=== PATIENT | female | born 1940 | race African-American/Black ===

== ENCOUNTER 2016-10-22 15:56 | Emergency (ER) | payer OTHER, MEDICARE ==
[2016-10-22 16:04] VITALS: BMI 40.2
--- NOTE | 2016-10-22 17:40 | PDOC ---
History of Present Illness - General History Source: Patient Exam Limitations: No Limitations - History of Present Illness Initial Comments: 10/22/16 17:49 The patient is a 76 year old female, with a significant past medical history of CAD, a-fib, arrhythmia, DM (on insulin), CHF, HTN, HLD, ESRD on dialysis (Mon, Weds, and Fri) who presents to the emergency department with lower back pain for 4 days. The patient reports having lower back/buttock pain that radiates down her LLE into her foot. She notes having numbness and tingling in her LLE with her back pain. She denies any relief from NSAIDs, ice, and heating pads. She reports having trouble walking secondary to pain. She denies recent fevers, chills, headache or dizziness. She denies recent nausea, vomit, diarrhea or constipation. She denies recent dysuria, frequency, urgency or hematuria. She denies recent chest pain or shortness of breath. She reports having previous negative x-rays and Doppler test. Allergies: Penicillins Past surgical history: Appendectomy, cholecystectomy, and abdominal hernia repair Social history: Nonsmoker. Denies EtOH use and recreational drug use. Primary Care Physician: Dr. Henriquez <Gregg Romero - Last Filed: 10/22/16 17:49> <Elizabeth Grimaldo - Last Filed: 10/24/16 01:39> - General Chief Complaint: Pain Stated Complaint: LEFT LEG PAIN Time Seen by Provider: 10/22/16 17:39 Past History <Gregg Romero - Last Filed: 10/22/16 17:49> - Past Medical History Anemia: Yes Asthma: No Cancer: No Cardiac Disorders: Yes (ARRHYTHMIA, H/O A FIB,CAD) CVA: No COPD: No CHF: Yes Dementia: No Diabetes: Yes (1993) Dialysis: Yes (-W-) GI Disorders: No Disorders: Yes (RENAL DIALYSIS STARTED 2003) HTN: Yes (NO MEDS (GOES TOO LOW ON DIALYSIS)) Hypercholesterolemia: Yes Liver Disease: No Seizures: No Thyroid Disease: No - Surgical History Abdominal Surgery: Yes (UMBILICAL HERNIA REPAIR) Appendectomy: Yes (MANY YRS AGO) Cardiac Surgery: No Cholecystectomy: Yes (MANY YRS AGO) Lung Surgery: No Neurologic Surgery: No Orthopedic Surgery: No - Psycho/Social/Smoking Cessation Hx Anxiety: No Suicidal Ideation: No Smoking History: Never smoked Have you smoked in the past 12 months: No Hx Alcohol Use: No Drug/Substance Use Hx: No Substance Use Type: None Hx Substance Use Treatment: No <Elizabeth Grimaldo - Last Filed: 10/24/16 01:39> - Past Medical History Allergies/Adverse Reactions: Allergies Allergy/AdvReac Type Severity Reaction Status Date / Time Penicillins Allergy Swelling Verified 10/22/16 16:04 Home Medications: Ambulatory Orders Nitroglycerin Patch [Nitro-Dur Patch -] 0.2 mg TD PRN PRN 12/07/13 Warfarin Sodium [Coumadin] 10 mg PO HS 12/07/13 Psyllium [Metamucil (Sugar-Free) -] 5.85 gm PO Q2D packet 08/08/15 Oxycodone HCl [Roxicodone -] 10 mg PO Q6H PRN #10 tablet MDD 4 08/10/15 Pregabalin [Lyrica -] 50 mg PO BID capsule 08/10/15 Aspirin [ASA -] 81 mg PO DAILY #30 tab.chew 09/07/15 Atorvastatin Ca [Lipitor] 40 mg PO HS #120 tablet 09/07/15 Digoxin [Lanoxin -] 0.125 mg PO DAILY #30 tablet 09/07/15 Insulin (Levemir) [Levemir Vial] 10 units SQ BIDI #100 ml 09/07/15 Lactulose [Cephulac -] 10 gm PO Q2D #30 ml 09/07/15 Metoprolol Succinate [Toprol XL -] 25 mg PO DAILY #30 tab.sr.24h 09/07/15 Sennosides [Senna -] 2 tab PO HS PRN #120 tablet 09/07/15 Sevelamer Carbonate [Renvela -] 4,000 mg PO TID #100 tab 09/07/15 Collagenase Clostridium Hist. [Santyl] 1 applic TP DAILY #90 applic 11/22/15 Becaplermin [Regranex] 15 gm TP DAILY #15 gel..gram. 01/07/16 Ondansetron [Zofran Odt -] 4 mg SL BID PRN #10 od.tablet 10/23/16 Oxycodone HCl 10 mg PO QID PRN #10 tablet MDD 4 10/23/16 Oxycodone HCl [Roxicodone -] 10 mg PO Q6H PRN #10 tablet MDD 4 10/23/16 Review of Systems - Review of Systems Able to Perform ROS?: Yes Comments:: 10/22/16 17:49 CONSTITUTIONAL: Absent: fever, chills, diaphoresis, generalized weakness, malaise, loss of appetite HEENT: Absent: rhinorrhea, nasal congestion, throat pain, throat swelling, difficulty swallowing, mouth swelling, ear pain, eye pain, visual Changes CARDIOVASCULAR: Absent: chest pain, syncope, palpitations, irregular heart rate, lightheadedness , peripheral edema RESPIRATORY: Absent: cough, shortness of breath, dyspnea with exertion, orthopnea, wheezing, stridor, hemoptysis GASTROINTESTINAL: Absent: abdominal pain, abdominal distension, nausea, vomiting, diarrhea, constipation, melena, hematochezia GENITOURINARY: Absent: dysuria, frequency, urgency, hesitancy, hematuria, flank pain, genital pain MUSCULOSKELETAL: +back pain and LLE pain. Absent: myalgia, arthralgia, joint swelling SKIN: Absent: rash, itching, pallor HEMATOLOGIC/IMMUNOLOGIC: Absent: easy bleeding, easy bruising, lymphadenopathy, frequent infections ENDOCRINE: Absent: unexplained weight gain, unexplained weight loss, heat intolerance, cold intolerance NEUROLOGIC: Absent: headache, focal weakness or paresthesias, dizziness, unsteady gait, seizure, mental status changes, bladder or bowel incontinence PSYCHIATRIC: Absent: anxiety, depression, suicidal or homicidal ideation, hallucinations. <Gregg Romero - Last Filed: 10/22/16 17:49> *Physical Exam - Vital Signs Last Vital Signs Temp Pulse Resp BP Pulse Ox 98.0 F 72 20 115/52 97 10/22/16 16:01 10/22/16 16:01 10/22/16 16:01 10/22/16 16:01 10/22/16 16:01 - Physical Exam Comments: 10/22/16 17:50 GENERAL: Well developed, well nourished. Awake and alert. No acute distress. HEENT: Normocephalic, atraumatic. PERRLA, EOMI. No conjunctival pallor. Sclera are non- icteric. Moist mucous membranes. Oropharynx is clear. NECK: Supple. Full ROM. No JVD. Carotid pulses 2+ and symmetric, without bruits. No thyromegaly. No lymphadenopathy. CARDIOVASCULAR: Iregular rate and rhythm. No murmurs, rubs, or gallops. Distal pulses are 2+ and symmetric. PULMONARY: No evidence of respiratory distress. Lungs clear to auscultation bilaterally. No wheezing, rales or rhonchi. ABDOMINAL: Soft. Non-tender. Non-distended. No rebound or guarding. No organomegaly. Normoactive bowel sounds. MUSCULOSKELETAL Normal range of motion at all joints. No bony deformities or tenderness. No CVA tenderness. EXTREMITIES: +1 pitting edema. No cyanosis. No clubbing. SKIN: Warm and dry. Normal capillary refill. No rashes. No jaundice. NEUROLOGICAL: Alert, awake, appropriate. Cranial nerves 2-12 intact. No deficits to light touch and temperature in face, upper extremities and lower extremities. No motor deficits in the in face, upper extremities and lower extremities. Normoreflexic in the upper and lower extremities. Normal speech. Toes are down- going bilaterally. Gait is normal without ataxia. PSYCHIATRIC: Cooperative. Good eye contact. Appropriate mood and affect. <Gregg Romero - Last Filed: 10/22/16 17:49> - Vital Signs Last Vital Signs Temp Pulse Resp BP Pulse Ox 98.0 F 72 20 115/52 97 10/22/16 16:01 10/22/16 16:01 10/22/16 16:01 10/22/16 16:01 10/22/16 16:01 <Elizabeth Grimaldo - Last Filed: 10/24/16 01:39> ED Treatment Course - LABORATORY CBC & Chemistry Diagram: 10/22/16 19:50 10/22/16 21:00 <Elizabeth Grimaldo - Last Filed: 10/24/16 01:39> Medical Decision Making - Medical Decision Making 10/23/16 00:21 76-year-old female with past medical history of end-stage renal disease, A. fib on Coumadin, presents with 4 days of left leg pain. The pain radiates down from her buttocks She does not have any new fecal or urinary incontinence Dr. Alisha Booker is her residence director. She has a history of low potassium and actually has been receiving potassium when she gets her dialysis Her dialysis is on Sunday, Sunday and Sunday Tonight, her potassium is 2.9 and I spoke with Dr. aGrcia. He said was okay to give her 20 mEq of liquid potassium, chloride Patient's CBC is unremarkable. Chemistries were reviewed and her creatinine was 11. Glucose is only 65 and she was given some apple jiuce to drink -pt received pain meds plan d/c home and go to dialysis in am 10/24/16 01:38 <Elizabeth Grimaldo - Last Filed: 10/24/16 01:39> *DC/Admit/Observation/Transfer - Attestations Scribe Attestion: 10/22/16 17:50 Documentation prepared by Gregg Romero, acting as medical office receptionist for Elizabeth Grimaldo MD. <Gregg Romero - Last Filed: 10/22/16 17:49> <Elizabeth Grimaldo - Last Filed: 10/24/16 01:39> Diagnosis at time of Disposition: Sciatica of left side, Hypokalemia - Discharge Dispostion Disposition: HOME Condition at time of disposition: Stable - Prescriptions Prescriptions: Oxycodone HCl 10 mg PO QID PRN #10 tablet MDD 4 PRN Reason: Severe Pain Oxycodone HCl [Roxicodone -] 10 mg PO Q6H PRN #10 tablet MDD 4 PRN Reason: Severe Pain Ondansetron [Zofran Odt -] 4 mg SL BID PRN #10 od.tablet PRN Reason: Nausea And/Or Vomiting - Referrals Referrals: Kishore David MD [Primary Care Provider] - Alisha Booker MD [Staff Physician] - - Patient Instructions Printed Discharge Instructions: DI for Back Pain With Sciatica Additional Instructions: please go to dialysis tomorrow group product manager your medication at [facility] pharmacy please see your doctor this week
[2016-10-22] MEDS ORDERED: OXYCODONE/APAP 5/325MG COMBO TABLET PO ONE (18:07)
[2016-10-22] MEDS ORDERED: IBUPROFEN 400 MG TABLET (FP) PO ONE ×2 (18:08→18:22)
[2016-10-22] MEDS ORDERED: oxyCODONE HCL 5 MG TABLET PO ONE (18:19)
[2016-10-22] MEDS ORDERED: oxyCODONE HCL 5 MG TABLET ONE (18:22)
[2016-10-22] MEDS ORDERED: morphine CARPU-JECT 2 MG/1 ML DISP.SYRIN IVPUSH ONE ×2 (19:35→20:38)
[2016-10-22] MEDS ORDERED: ONDANSETRON 4 MG/2 ML VIAL IVPUSH ONE (19:35)
[2016-10-22] MEDS ORDERED: ONDANSETRON 4 MG/2 ML VIAL ONE ×2 (19:40→23:34)
[2016-10-22] MEDS ORDERED: morphine CARPU-JECT 2 MG/1 ML DISP.SYRIN ONE ×2 (19:40→20:39)
[2016-10-22 20:07] LABS: BASOPHIL 0.6 % (0-2.0); EOSINOPHIL 0.1 % (0-4.5); MCH 28.3 pg (25.7-33.7); MCHC 31.5 g/dl (32.0-36.0); MEAN CELL VOLUME 89.7 fl (80-96); MEAN PLT VOLUME 8.9 fl (7.5-11.1); NEUTROPHILS 60.1 % (42.8-82.8); PLATELET COUNT 217 K/MM3 (134-434); WHITE BLOOD COUNT 9.3 K/mm3 (4.0-10.0)
[2016-10-22] MEDS ORDERED: HYDROmorphone HCL CARPU-JECT 1 MG/1 ML DISP.SYRIN IVPUSH ONE (20:37)
[2016-10-22 21:27] LABS: INR 2.79 (0.82-1.09); PROTHROMBIN TIME (PATIENT) 31.3 SEC (9.98-11.88)
[2016-10-22 21:36] LABS: ALBUMIN 3.6 g/dl (3.4-5.0); BILIRUBIN,TOTAL 0.3 mg/dL (0.2-1.0); CALCIUM 8.4 mg/dL (8.5-10.1); TOT PROT 7.3 g/dl (6.4-8.2)
[2016-10-22] MEDS ORDERED: HYDROmorphone HCL CARPU-JECT 1 MG/1 ML DISP.SYRIN ONE (21:40)
[2016-10-22 21:42] LABS: COCKROFT - GAULT 8.0325
[2016-10-22 21:45] LABS: CREATININE 11.3 mg/dL (0.55-1.02)
[2016-10-22] MEDS ORDERED: POTASSIUM CHLORIDE ORAL LIQUID 20 MEQ/15 ML PO ONE (22:14)
[2016-10-22] MEDS ORDERED: POTASSIUM CHLORIDE ORAL LIQUID 20 MEQ/15 ML ONE (22:43)
[2016-10-23] MEDS ORDERED: ONDANSETRON 4 MG/2 ML VIAL IVPUSH ONE ×2 (00:19→00:41)
[2016-10-23] MEDS ORDERED: ONDANSETRON 4 MG/2 ML VIAL ONE (00:47)
[2016-10-23 05:19] VITALS: BP 121/68; PULSE 66; TEMP 98.3
== END 2016-10-23 05:05 | disposition home or self-care (01) ==
LOC: JER 15:56 → JERFT 15:56 → JER 10-23 05:05
PROC: 3E033NZ Introduction of Analgesics, Hypnotics, Sedatives into Peripheral Vein, Percutaneous Approach (ICD-10-PCS; principal; 2016-10-22)
PROC: 3E033GC Introduction of Other Therapeutic Substance into Peripheral Vein, Percutaneous Approach (ICD-10-PCS; 2016-10-22)
PROC: 3E033GC Introduction of Other Therapeutic Substance into Peripheral Vein, Percutaneous Approach (ICD-10-PCS; 2016-10-22)
PROC: 3E033GC Introduction of Other Therapeutic Substance into Peripheral Vein, Percutaneous Approach (ICD-10-PCS; 2016-10-22)
PROC: 3E033NZ Introduction of Analgesics, Hypnotics, Sedatives into Peripheral Vein, Percutaneous Approach (ICD-10-PCS; 2016-10-22)
PROC: 3E033NZ Introduction of Analgesics, Hypnotics, Sedatives into Peripheral Vein, Percutaneous Approach (ICD-10-PCS; 2016-10-22)
DX: M54.42 Lumbago with sciatica, left side (principal); E87.6 Hypokalemia; I48.91 Unspecified atrial fibrillation; Z79.01 Long term (current) use of anticoagulants; I25.10 Atherosclerotic heart disease of native coronary artery without angina pectoris; I13.2 Hypertensive heart and chronic kidney disease with heart failure and with stage 5 chronic kidney disease, or end stage renal disease; N18.6 End stage renal disease; I50.9 Heart failure, unspecified; Z99.2 Dependence on renal dialysis; E78.00 Pure hypercholesterolemia, unspecified; E11.9 Type 2 diabetes mellitus without complications; Z79.4 Long term (current) use of insulin
CPT/HCPCS: 36415; 80053; 85025; 85610; 85730; 96374; 96375; 99283-25

== ENCOUNTER 2016-10-27 06:01 | Inpatient (IN) | payer OTHER, MEDICARE ==
[2016-10-27] MEDS ORDERED: traMADol HCL 50 MG TABLET PO ONE (07:30)
[2016-10-27] MEDS ORDERED: traMADol HCL 50 MG TABLET ONE (07:43)
--- NOTE | 2016-10-27 08:00 | PDOC ---
History of Present Illness - General Chief Complaint: Pain, Acute Stated Complaint: LEG PAIN Time Seen by Provider: 10/27/16 07:06 History Source: Patient - History of Present Illness Occurred: reports: last week Pain Location: reports: lower extremity Past History - Past Medical History Allergies/Adverse Reactions: Allergies Allergy/AdvReac Type Severity Reaction Status Date / Time Penicillins Allergy Swelling Verified 10/27/16 06:24 Home Medications: Ambulatory Orders Nitroglycerin Patch [Nitro-Dur Patch -] 0.2 mg TD PRN PRN 12/07/13 Warfarin Sodium [Coumadin] 10 mg PO HS 12/07/13 Psyllium [Metamucil (Sugar-Free) -] 5.85 gm PO Q2D packet 08/08/15 Oxycodone HCl [Roxicodone -] 10 mg PO Q6H PRN #10 tablet MDD 4 08/10/15 Pregabalin [Lyrica -] 50 mg PO BID capsule 08/10/15 Aspirin [ASA -] 81 mg PO DAILY #30 tab.chew 09/07/15 Atorvastatin Ca [Lipitor] 40 mg PO HS #120 tablet 09/07/15 Digoxin [Lanoxin -] 0.125 mg PO DAILY #30 tablet 09/07/15 Insulin (Levemir) [Levemir Vial] 10 units SQ BIDI #100 ml 09/07/15 Lactulose [Cephulac -] 10 gm PO Q2D #30 ml 09/07/15 Metoprolol Succinate [Toprol XL -] 25 mg PO DAILY #30 tab.sr.24h 09/07/15 Sennosides [Senna -] 2 tab PO HS PRN #120 tablet 09/07/15 Sevelamer Carbonate [Renvela -] 4,000 mg PO TID #100 tab 09/07/15 Collagenase Clostridium Hist. [Santyl] 1 applic TP DAILY #90 applic 11/22/15 Becaplermin [Regranex] 15 gm TP DAILY #15 gel..gram. 01/07/16 Ondansetron [Zofran Odt -] 4 mg SL BID PRN #10 od.tablet 10/23/16 Oxycodone HCl 10 mg PO QID PRN #10 tablet MDD 4 10/23/16 Oxycodone HCl [Roxicodone -] 10 mg PO Q6H PRN #10 tablet MDD 4 10/23/16 Anemia: Yes Asthma: No Cancer: No Cardiac Disorders: Yes (ARRHYTHMIA, H/O A FIB,CAD) CVA: No COPD: No CHF: Yes Dementia: No Diabetes: Yes (1993) Dialysis: Yes (-W-) GI Disorders: No Disorders: Yes (RENAL DIALYSIS STARTED 2003) HTN: Yes (NO MEDS (GOES TOO LOW ON DIALYSIS)) Hypercholesterolemia: Yes Liver Disease: No Seizures: No Thyroid Disease: No - Surgical History Abdominal Surgery: Yes (UMBILICAL HERNIA REPAIR) Appendectomy: Yes (MANY YRS AGO) Cardiac Surgery: No Cholecystectomy: Yes (MANY YRS AGO) Lung Surgery: No Neurologic Surgery: No Orthopedic Surgery: No - Reproductive History Is Patient Now?: No - Immunization History Immunization Up to Date: Yes - Psycho/Social/Smoking Cessation Hx Anxiety: No Suicidal Ideation: No Smoking History: Never smoked Have you smoked in the past 12 months: No Hx Alcohol Use: No Drug/Substance Use Hx: No Substance Use Type: None Hx Substance Use Treatment: No Review of Systems - Review of Systems Constitutional: No: Chills, Fever : No: Dysuria Musculoskeletal: No: Back Pain Neurological: Yes: Numbness. No: Tingling, Weakness *Physical Exam - Vital Signs Last Vital Signs Temp Pulse Resp BP Pulse Ox 98.3 F 62 20 100/55 98 10/27/16 06:21 10/27/16 06:21 10/27/16 06:21 10/27/16 06:21 10/27/16 06:25 - Physical Exam General Appearance: Yes: Appropriately Dressed. No: Apparent Distress HEENT: positive: Normal Voice Neck: positive: Supple Respiratory/Chest: negative: Respiratory Distress Gastrointestinal/Abdominal: positive: Soft. negative: Tender Musculoskeletal: negative: CVA Tenderness, Vertebral Tenderness Extremity: positive: Normal Inspection Integumentary: positive: Dry, Warm Neurologic: positive: Fully Oriented, Alert, Normal Mood/Affect, Motor Strength 10/06 ED Treatment Course - LABORATORY CBC & Chemistry Diagram: 10/27/16 08:57 10/27/16 08:57 - Medications Given in the ED: ED Medications Discontinued Medications Generic Name Dose Route Start Last Admin Trade Name Freq PRN Reason Stop Dose Admin Tramadol HCl 50 mg 10/27/16 07:30 10/27/16 07:48 Ultram - PO 10/27/16 07:31 50 mg ONCE ONE Administration Medical Decision Making - Medical Decision Making 10/27/16 07:55 76 yo F, h/o HTN, HLD, CAD, afib, CHF, NIDDM, ESRD on HD (M/W/F), presents to ED w/ severe pain to L gluteus r/t leg x ~1 week. Now feels similar pain on the R. No recent trauma. Also c/o intermittent numbness to L toes. Seen in ED for symptoms 6 days ago and told sxs possibly sciatica. Given multipel doses of narcotics on prior visit w/ improvement of pain at some point and sent home w/ percocet which did not relive pain as per pt. Saw her pmd several days ago and started on gabapentin w/ no improvement in SXS. Pt able to ambulate w/ walker and states pain actually better w/ weight bearing. No back pain, LE weakness, b/ b incontinence or saddle anesthesia see exam ?sciatica vs neuropathy vs radiculopathy 2nd visit for same No e/o cauda equina at this time Bearing weight in ED -pain control and re-asses -possible admission for pain control 10/27/16 08:09 Pt moaning in pain despite pain meds. Will contact pmd and admit at this time. 10/27/16 09:[address] Cazares *DC/Admit/Observation/Transfer Diagnosis at time of Disposition: Left leg pain, Sciatica of left side - Discharge Dispostion Condition at time of disposition: Fair Admit: Yes - Referrals Referrals: Kishore David MD [Primary Care Provider] -
[2016-10-27] MEDS ORDERED: morphine CARPU-JECT 4 MG/1 ML DISP.SYRIN IVPUSH ONE (08:06)
[2016-10-27] MEDS ORDERED: morphine CARPU-JECT 4 MG/1 ML DISP.SYRIN ONE (08:15)
--- NOTE | 2016-10-27 08:45 | PDOC ---
*Physical Exam - Vital Signs Last Vital Signs Temp Pulse Resp BP Pulse Ox 98.3 F 62 20 100/55 98 10/27/16 06:21 10/27/16 06:21 10/27/16 06:21 10/27/16 06:21 10/27/16 06:25 Heart Score/ECG Review #1 ECG reviewed & interpreted by me at: 08:58 10/27/16 08:59 Afib rate of 65 bpm, Left [place] deviation, intervals abn: QRS: 120ms, QTc: 472ms No st elevation or depressions ED Treatment Course - LABORATORY CBC & Chemistry Diagram: 10/27/16 08:57 10/27/16 08:57 - Medications Given in the ED: ED Medications Discontinued Medications Generic Name Dose Route Start Last Admin Trade Name Sade PRN Reason Stop Dose Admin Tramadol HCl 50 mg 10/27/16 07:30 10/27/16 07:48 Ultram - PO 10/27/16 07:31 50 mg ONCE ONE Administration Medical Decision Making - Medical Decision Making 10/27/16 08:23 76 yo F presenting with severe back pain, sciatica Pt has taking several medications Intractable back pain Will admit *DC/Admit/Observation/Transfer Diagnosis at time of Disposition: Left leg pain, Sciatica of left side - Discharge Dispostion Condition at time of disposition: Fair
[2016-10-27] MEDS ORDERED: HYDROmorphone HCL CARPU-JECT 2 MG/1 ML DISP.SYRIN IVPB ONE (09:04)
[2016-10-27 09:06] LABS: BASOPHIL 0.5 % (0-2.0); EOSINOPHIL 0.1 % (0-4.5); MCH 29.2 pg (25.7-33.7); MCHC 32.5 g/dl (32.0-36.0); MEAN CELL VOLUME 89.9 fl (80-96); MEAN PLT VOLUME 9.2 fl (7.5-11.1); NEUTROPHILS 71.2 % (42.8-82.8); PLATELET COUNT 205 K/MM3 (134-434); RDW 17.5 % (11.6-15.6); WHITE BLOOD COUNT 11.4 K/mm3 (4.0-10.0)
[2016-10-27] MEDS ORDERED: HYDROmorphone HCL CARPU-JECT 2 MG/1 ML DISP.SYRIN ONE (09:36)
[2016-10-27] MEDS ORDERED: HEPARIN NA (PORCINE) 5,000 UNITS/ML 1ML VIAL IVPUSH ONE ×2 (11:23→14:15)
[2016-10-27 14:23] LABS: ALBUMIN 3.3 g/dl (3.4-5.0); BILIRUBIN,TOTAL 0.3 mg/dL (0.2-1.0); CALCIUM 7.9 mg/dL (8.5-10.1); PHOSPHOROUS 3.9 mg/dL (2.5-4.9)
[2016-10-27 14:29] LABS: COCKROFT - GAULT 8.4065
--- NOTE | 2016-10-27 14:38 | CONSULT ---
Consult Consult Specialty:: Nephrology ( Jhony/ Camilo) Referred by:: Sage - History of Present Illness Chief Complaint: Patient with ESRD, admitted with severe left back pain, radiating to the left lower extremity. Pain is excruciating at times, and makes her unable to move. She has h/o ESRD, HTN, Hyperlipidemia, Diabetes mellitus type 2. The patient has been on Hemodialyis for the past several years. Denies any recent direct trauma. 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 No: CAD, CHF Gastrointestinal: Yes: Constipation Renal/: Yes: Renal Failure, Hemodialysis, Other (renal cysts see HPI) ...: No Endocrine: Yes: Diabetes Mellitus Additional Medical History: Right superficial breast mass which she noted for the last 2 weeks and has enlarged in size. Minimal drainage has been noted. - Past Surgical History Past Surgical History: Yes: Appendectomy, AV Fistula/Graft, Cholecystectomy, Hernia Repair - Alcohol/Substance Use Hx Alcohol Use: No - Smoking History Smoking history: Never smoked Have you smoked in the past 12 months: No - Social History ADL: Independent History of Recent Travel: No Home Medications - Allergies Allergies/Adverse Reactions: Allergies Allergy/AdvReac Type Severity Reaction Status Date / Time Penicillins Allergy Swelling Verified 10/27/16 06:24 - Home Medications Home Medications: Ambulatory Orders Nitroglycerin Patch [Nitro-Dur Patch -] 0.2 mg TD PRN PRN 12/07/13 Warfarin Sodium [Coumadin] 10 mg PO HS 12/07/13 Psyllium [Metamucil (Sugar-Free) -] 5.85 gm PO Q2D packet 08/08/15 Oxycodone HCl [Roxicodone -] 10 mg PO Q6H PRN #10 tablet MDD 4 08/10/15 Pregabalin [Lyrica -] 50 mg PO BID capsule 08/10/15 Aspirin [ASA -] 81 mg PO DAILY #30 tab.chew 09/07/15 Atorvastatin Ca [Lipitor] 40 mg PO HS #120 tablet 09/07/15 Digoxin [Lanoxin -] 0.125 mg PO DAILY #30 tablet 09/07/15 Insulin (Levemir) [Levemir Vial] 10 units SQ BIDI #100 ml 09/07/15 Lactulose [Cephulac -] 10 gm PO Q2D #30 ml 09/07/15 Metoprolol Succinate [Toprol XL -] 25 mg PO DAILY #30 tab.sr.24h 09/07/15 Sennosides [Senna -] 2 tab PO HS PRN #120 tablet 09/07/15 Sevelamer Carbonate [Renvela -] 4,000 mg PO TID #100 tab 09/07/15 Collagenase Clostridium Hist. [Santyl] 1 applic TP DAILY #90 applic 11/22/15 Becaplermin [Regranex] 15 gm TP DAILY #15 gel..gram. 01/07/16 Ondansetron [Zofran Odt -] 4 mg SL BID PRN #10 od.tablet 10/23/16 Oxycodone HCl 10 mg PO QID PRN #10 tablet MDD 4 10/23/16 Oxycodone HCl [Roxicodone -] 10 mg PO Q6H PRN #10 tablet MDD 4 10/23/16 Family Disease History - Family Disease History Family Disease History: Diabetes: Sister (), CA: Father (prostate Ca; ) Review of Systems - Review of Systems Constitutional: denies: Diaphoresis, Fever, Loss of Appetite Eyes: denies: Blurred Vision, Double Vision HENT: denies: Difficult Swallowing Neck: denies: Stiffness Cardiovascular: denies: Chest Pain, Shortness of Breath Respiratory: denies: Cough Musculoskeletal: reports: Back Pain, Extremity Pain, Muscle Pain Neurological: denies: Change in Speech, Headache Endocrine: reports: Intolerance to Cold Physical Exam Vital Signs: Vital Signs Temperature 98.3 F 10/27/16 06:21 Pulse Rate 62 10/27/16 06:21 Respiratory Rate 20 10/27/16 06:21 Blood Pressure 100/55 10/27/16 06:21 O2 Sat by Pulse Oximetry (%) 98 10/27/16 06:25 Constitutional: Yes: Well Nourished, Anxious HENT: Yes: Normocephalic Cardiovascular: Yes: Regular Rate and Rhythm, S1, S2. No: S3, S4 Respiratory: Yes: CTA Bilaterally Gastrointestinal: Yes: Normal Bowel Sounds, Abdomen, Obese Extremities: No: Cyanosis, Erythema, Internal Rotation Neurological: Yes: Alert, Cran Nerves II-XII Intact Psychiatric: Yes: Alert Problem List - Problems (1) Left leg pain Code(s): M79.605 - PAIN IN LEFT LEG (2) Sciatica of left side Code(s): M54.32 - SCIATICA, LEFT SIDE (3) ASHD (arteriosclerotic heart disease) Code(s): I25.10 - ATHSCL HEART DISEASE OF [place] CORONARY ARTERY W/O ANG PCTRS (4) Anemia Code(s): D64.9 - ANEMIA, UNSPECIFIED (5) Diabetes Code(s): E11.9 - TYPE 2 DIABETES MELLITUS WITHOUT COMPLICATIONS (6) ESRD (end stage renal disease) on dialysis Code(s): N18.6 - END STAGE RENAL DISEASE Z99.2 - DEPENDENCE ON RENAL DIALYSIS (7) HTN (hypertension) Code(s): I10 - ESSENTIAL (PRIMARY) HYPERTENSION (8) Hyperlipidemia Code(s): E78.5 - HYPERLIPIDEMIA, UNSPECIFIED (9) Hypokalemia Code(s): E87.6 - HYPOKALEMIA (10) Obesity Code(s): E66.9 - OBESITY, UNSPECIFIED Assessment/Plan 76 y/o female with ESRD, admitted with severe left sciatica. The patient will require, w/u, pain management and physical therapy. Will continue Hemodialysis at the current schedule. If MRI needs to be done, please avoid IV Gadolinium. Thank you. Alisha Booker MD
[2016-10-27 15:07] LABS: CREATININE 10.8 mg/dL (0.55-1.02)
[2016-10-27] MEDS ORDERED: ONDANSETRON *ODT* 4 MG TABLET SL PRN (17:05)
--- NOTE | 2016-10-27 17:43 | HP ---
Admitting History and Physical - Primary Care Physician PCP: Jacqueline Cazares - Admission Chief Complaint: Left back and leg pain History of Present Illness: Ms. Freedman is a pleasant 76 yo female came in to the ER second time this week due to excruciating left back and lower extremity pain. She was discharged home after a dose of dilaudid and prescription of percocet, after which she followed with her PCP Dr David, who gave her gabapentin 100 mg po BID, which did not help her. After her last dialysis the pain got worse and this AM she could not tolerated the pain. She has had similar episode last year. She has no prior studies or imaging done. 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 No: CAD, CHF Gastrointestinal: Yes: Constipation Renal/: Yes: Renal Failure, Hemodialysis, Other (renal cysts see HPI) ...: No Heme/Onc: Yes: Anemia Endocrine: Yes: Diabetes Mellitus - Past Surgical History Past Surgical History: Yes: Appendectomy, AV Fistula/Graft, Cholecystectomy, Hernia Repair - Smoking History Smoking history: Never smoked Have you smoked in the past 12 months: No - Alcohol/Substance Use Hx Alcohol Use: No - Social History ADL: Independent History of Recent Travel: No Home Medications - Allergies Allergies/Adverse Reactions: Allergies Allergy/AdvReac Type Severity Reaction Status Date / Time Penicillins Allergy Swelling Verified 10/27/16 06:24 - Home Medications Home Medications: Ambulatory Orders Nitroglycerin Patch [Nitro-Dur Patch -] 0.2 mg TD PRN PRN 12/07/13 Warfarin Sodium [Coumadin] 10 mg PO HS 12/07/13 Psyllium [Metamucil (Sugar-Free) -] 5.85 gm PO Q2D packet 08/08/15 Oxycodone HCl [Roxicodone -] 10 mg PO Q6H PRN #10 tablet MDD 4 08/10/15 Pregabalin [Lyrica -] 50 mg PO BID capsule 08/10/15 Aspirin [ASA -] 81 mg PO DAILY #30 tab.chew 09/07/15 Atorvastatin Ca [Lipitor] 40 mg PO HS #120 tablet 09/07/15 Digoxin [Lanoxin -] 0.125 mg PO DAILY #30 tablet 09/07/15 Insulin (Levemir) [Levemir Vial] 10 units SQ BIDI #100 ml 09/07/15 Lactulose [Cephulac -] 10 gm PO Q2D #30 ml 09/07/15 Metoprolol Succinate [Toprol XL -] 25 mg PO DAILY #30 tab.sr.24h 09/07/15 Sennosides [Senna -] 2 tab PO HS PRN #120 tablet 09/07/15 Sevelamer Carbonate [Renvela -] 4,000 mg PO TID #100 tab 09/07/15 Collagenase Clostridium Hist. [Santyl] 1 applic TP DAILY #90 applic 11/22/15 Becaplermin [Regranex] 15 gm TP DAILY #15 gel..gram. 01/07/16 Ondansetron [Zofran Odt -] 4 mg SL BID PRN #10 od.tablet 10/23/16 Oxycodone HCl 10 mg PO QID PRN #10 tablet MDD 4 10/23/16 Oxycodone HCl [Roxicodone -] 10 mg PO Q6H PRN #10 tablet MDD 4 10/23/16 Family Disease History - Family Disease History Family Disease History: Diabetes: Sister (), CA: Father (prostate Ca; ) Review of Systems - Review of Systems Constitutional: reports: Weakness Eyes: reports: No Symptoms HENT: reports: No Symptoms Neck: reports: No Symptoms Cardiovascular: reports: No Symptoms Respiratory: reports: No Symptoms Gastrointestinal: reports: No Symptoms Genitourinary: reports: No Symptoms Breasts: reports: No Symptoms Reported Musculoskeletal: reports: Decreased ROM (left sided lower back), Extremity Pain (Left lower extremity) Integumentary: reports: No Symptoms Neurological: reports: Unsteady Gait Endocrine: reports: No Symptoms Hematology/Lymphatic: reports: No Symptoms Psychiatric: reports: No Symptoms Pain Intensity: 10 Physical Examination Vital Signs: Vital Signs Temperature 98.3 F 10/27/16 06:21 Pulse Rate 79 10/27/16 16:25 Respiratory Rate 18 10/27/16 16:25 Blood Pressure 127/51 10/27/16 16:25 O2 Sat by Pulse Oximetry (%) 98 10/27/16 06:25 Constitutional: Yes: Well Nourished, Calm, Mild Distress Cardiovascular: Yes: Pulse Irregular, S1, S2 Respiratory: Yes: Regular Gastrointestinal: Yes: WNL, Normal Bowel Sounds Musculoskeletal: Yes: Other (Left leg pain on movement, gradually subsiding) Extremities: Yes: WNL Edema: No Peripheral Pulses WNL: No Peripheral Pulses: Left Doralis Pedis: 1+, Right Dorsalis Pedis: 1+ Neurological: Yes: Alert, Oriented ...Motor Strength: LLE Psychiatric: Yes: WNL Labs: CBC, BMP 10/27/16 13:30 Problem List - Problems (1) Left leg pain Code(s): M79.605 - PAIN IN LEFT LEG (2) Sciatica of left side Assessment/Plan: Lumbar Xray 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 Neuro consult MRI lumbar spine Pain management Code(s): M54.32 - SCIATICA, LEFT SIDE (3) Atrial fibrillation Assessment/Plan: Chronic, continue AC Code(s): I48.91 - UNSPECIFIED ATRIAL FIBRILLATION Assessment/Plan Lumbar Xray 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 Neuro consult MRI lumbar spine Pain management
[2016-10-27 17:47] VITALS: BMI 36.1
[2016-10-27] MEDS ORDERED: DOCUSATE SODIUM 100 MG CAPSULE (FP) PO PRN (17:47)
[2016-10-27] MEDS ORDERED: WARFARIN NA 10 MG TABLET (FP) PO SCH (18:00)
--- NOTE | 2016-10-27 18:04 | CON.NEURO ---
Consult Consult Specialty:: neurology - History of Present Illness History of Present Illness: 76 yr old woman hx of ESRD, [place], Hyperlipidemia, Diabetes mellitus type 2 admitted with severe left back pain, radiating to the left lower extremity since (last week ) . pain radiates down the left leg/buttocks- was seen in ER this past week. GIven morphine, dilaudid, tramadol; doing a bit better now, though will still have intermittent pain. numbness left >right foot. denies weakness. Denies any recent trauma. s/p dialysis; denies fevers. 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 No: CAD, CHF Gastrointestinal: Yes: Constipation Renal/: Yes: Renal Failure, Hemodialysis, Other (renal cysts see HPI) ...: No Endocrine: Yes: Diabetes Mellitus Additional Medical History: Right superficial breast mass which she noted for the last 2 weeks and has enlarged in size. Minimal drainage has been noted. - Past Surgical History Past Surgical History: Yes: Appendectomy, AV Fistula/Graft, Cholecystectomy, Hernia Repair - Alcohol/Substance Use Hx Alcohol Use: No - Smoking History Smoking history: Never smoked Have you smoked in the past 12 months: No - Social History ADL: Independent History of Recent Travel: No Home Medications - Allergies Allergies/Adverse Reactions: Allergies Allergy/AdvReac Type Severity Reaction Status Date / Time Penicillins Allergy Swelling Verified 10/27/16 06:24 - Home Medications Home Medications: Ambulatory Orders Nitroglycerin Patch [Nitro-Dur Patch -] 0.2 mg TD PRN PRN 12/07/13 Warfarin Sodium [Coumadin] 10 mg PO HS 12/07/13 Psyllium [Metamucil (Sugar-Free) -] 5.85 gm PO Q2D packet 08/08/15 Oxycodone HCl [Roxicodone -] 10 mg PO Q6H PRN #10 tablet MDD 4 08/10/15 Pregabalin [Lyrica -] 50 mg PO BID capsule 08/10/15 Aspirin [ASA -] 81 mg PO DAILY #30 tab.chew 09/07/15 Atorvastatin Ca [Lipitor] 40 mg PO HS #120 tablet 09/07/15 Digoxin [Lanoxin -] 0.125 mg PO DAILY #30 tablet 09/07/15 Insulin (Levemir) [Levemir Vial] 10 units SQ BIDI #100 ml 09/07/15 Lactulose [Cephulac -] 10 gm PO Q2D #30 ml 09/07/15 Metoprolol Succinate [Toprol XL -] 25 mg PO DAILY #30 tab.sr.24h 09/07/15 Sennosides [Senna -] 2 tab PO HS PRN #120 tablet 09/07/15 Sevelamer Carbonate [Renvela -] 4,000 mg PO TID #100 tab 09/07/15 Collagenase Clostridium Hist. [Santyl] 1 applic TP DAILY #90 applic 11/22/15 Becaplermin [Regranex] 15 gm TP DAILY #15 gel..gram. 01/07/16 Ondansetron [Zofran Odt -] 4 mg SL BID PRN #10 od.tablet 10/23/16 Oxycodone HCl 10 mg PO QID PRN #10 tablet MDD 4 10/23/16 Oxycodone HCl [Roxicodone -] 10 mg PO Q6H PRN #10 tablet MDD 4 10/23/16 Family Disease History - Family Disease History Family Disease History: Diabetes: Sister (), CA: Father (prostate Ca; ) Physical Exam-Neuro Vital Signs: Vital Signs Temperature 98.2 F 10/27/16 17:05 Pulse Rate 88 10/27/16 17:05 Respiratory Rate 20 10/27/16 17:05 Blood Pressure 98/60 10/27/16 17:05 O2 Sat by Pulse Oximetry (%) 98 10/27/16 06:25 Labs: CBC, BMP 10/27/16 13:30 - Neuro Exam Level Of Consciousness: Yes: Alert, Oriented to Person (EOMI, VFF, no facial, motor: 5/5 UE, LE-including L TA, gastroc, version/inversion, SLR (-), reflexes absnet LE ) NIH Stroke Scale - Total Score NIH Stroke Scale Score: 0 Problem List - Problems (1) Left leg pain Code(s): M79.605 - PAIN IN LEFT LEG (2) Sciatica of left side Code(s): M54.32 - SCIATICA, LEFT SIDE (3) Atrial fibrillation Code(s): I48.91 - UNSPECIFIED ATRIAL FIBRILLATION Assessment/Plan 76 yr old woman hx of ESRD, [place], Hyperlipidemia, Diabetes mellitus type 2 admitted with severe left back pain, radiating to the left lower extremity since (last week ) . pain radiates down the left leg/buttocks- was seen in ER this past week. GIven morphine, dilaudid, tramadol; doing a bit better now, though will still have intermittent pain. numbness left >right foot. denies weakness. Denies any recent trauma. s/p dialysis; denies fevers. no focal weakness or reflex asymmetry; Suspect left L5/S1 radiculopathy check MRI LS spine check ESR/CRP. pain control OXYCODONE 10 BID PRN , ideally to avoid Dilaudid but may be needed if pain continues. REHAB assessment will consider PM consult depending on how she does, Thanks for including us in her care Dr Starks [phone]
[2016-10-27] MEDS: SEVELAMER CARBONATE 800 MG TAB (FP) PO SCH (18:30)
[2016-10-27] MEDS: GABAPENTIN 300 MG CAPSULE (FP) PO SCH ×2 (18:30→22:33)
[2016-10-27] MEDS: WARFARIN NA 2 MG TABLET (UD) PO SCH (19:41)
[2016-10-27] MEDS: INSULIN DETEMIR 100 UNITS/ML MDV SQ SCH (22:33)
[2016-10-27] MEDS: ATORVASTATIN CA 40 MG TABLET (FP) PO SCH (22:33)
[2016-10-28] MEDS: traMADol HCL 50 MG TABLET PO PRN ×3 (00:44→17:42)
--- NOTE | 2016-10-28 01:19 | CONSULT ---
Consult Consult Specialty:: endocrine Referred by:: dr.annabi andrade Reason for Consultation:: iddm - History of Present Illness Chief Complaint: back pain severe History of Present Illness: 76 yo F, h/o HTN, HLD, CAD, afib, CHF, NIDDM, ESRD on HD (M/W/F), presents to ED w/ severe pain to L gluteus r/t leg x ~1 week. Now feels similar pain on the R. No recent trauma. Also c/o intermittent numbness to L toes. Seen in ED for symptoms 6 days ago and told sxs possibly sciatica. 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 No: CAD, CHF Gastrointestinal: Yes: Constipation Renal/: Yes: Renal Failure, Hemodialysis, Other (renal cysts see HPI) ...: No Endocrine: Yes: Diabetes Mellitus Additional Medical History: Right superficial breast mass which she noted for the last 2 weeks and has enlarged in size. Minimal drainage has been noted. - Past Surgical History Past Surgical History: Yes: Appendectomy, AV Fistula/Graft, Cholecystectomy, Hernia Repair - Alcohol/Substance Use Hx Alcohol Use: No - Smoking History Smoking history: Never smoked Have you smoked in the past 12 months: No - Social History ADL: Independent History of Recent Travel: No Home Medications - Allergies Allergies/Adverse Reactions: Allergies Allergy/AdvReac Type Severity Reaction Status Date / Time Penicillins Allergy Swelling Verified 10/27/16 06:24 - Home Medications Home Medications: Ambulatory Orders Nitroglycerin Patch [Nitro-Dur Patch -] 0.2 mg TD PRN PRN 12/07/13 Warfarin Sodium [Coumadin] 10 mg PO HS 12/07/13 Psyllium [Metamucil (Sugar-Free) -] 5.85 gm PO Q2D packet 08/08/15 Oxycodone HCl [Roxicodone -] 10 mg PO Q6H PRN #10 tablet MDD 4 08/10/15 Pregabalin [Lyrica -] 50 mg PO BID capsule 08/10/15 Aspirin [ASA -] 81 mg PO DAILY #30 tab.chew 09/07/15 Atorvastatin Ca [Lipitor] 40 mg PO HS #120 tablet 09/07/15 Digoxin [Lanoxin -] 0.125 mg PO DAILY #30 tablet 09/07/15 Insulin (Levemir) [Levemir Vial] 10 units SQ BIDI #100 ml 09/07/15 Lactulose [Cephulac -] 10 gm PO Q2D #30 ml 09/07/15 Metoprolol Succinate [Toprol XL -] 25 mg PO DAILY #30 tab.sr.24h 09/07/15 Sennosides [Senna -] 2 tab PO HS PRN #120 tablet 09/07/15 Sevelamer Carbonate [Renvela -] 4,000 mg PO TID #100 tab 09/07/15 Collagenase Clostridium Hist. [Santyl] 1 applic TP DAILY #90 applic 11/22/15 Becaplermin [Regranex] 15 gm TP DAILY #15 gel..gram. 01/07/16 Ondansetron [Zofran Odt -] 4 mg SL BID PRN #10 od.tablet 10/23/16 Oxycodone HCl 10 mg PO QID PRN #10 tablet MDD 4 10/23/16 Oxycodone HCl [Roxicodone -] 10 mg PO Q6H PRN #10 tablet MDD 4 10/23/16 Family Disease History - Family Disease History Family Disease History: Diabetes: Sister (), CA: Father (prostate Ca; ) Review of Systems - Review of Systems Constitutional: reports: Lethargy Eyes: reports: No Symptoms HENT: reports: No Symptoms Neck: reports: No Symptoms Cardiovascular: reports: No Symptoms Respiratory: reports: No Symptoms Gastrointestinal: reports: Bloating Genitourinary: reports: No Symptoms Breasts: reports: No Symptoms Reported Musculoskeletal: reports: Extremity Pain, Joint Swelling, Muscle Pain, Muscle Cramps, Muscle Weakness Integumentary: reports: No Symptoms Neurological: reports: Numbness, Unsteady Gait, Weakness Endocrine: reports: No Symptoms Physical Exam Vital Signs: Vital Signs Temperature 98.2 F 10/27/16 17:05 Pulse Rate 88 10/27/16 17:05 Respiratory Rate 18 10/27/16 20:48 Blood Pressure 60/40 10/27/16 20:48 O2 Sat by Pulse Oximetry (%) 94 L 10/27/16 17:05 Constitutional: Yes: Anxious Eyes: Yes: EOM Intact HENT: Yes: Normocephalic Neck: Yes: Trachea Midline Cardiovascular: Yes: Pulse Irregular Respiratory: Yes: CTA Bilaterally Gastrointestinal: Yes: Normal Bowel Sounds ...Rectal Exam: Yes: Deferred Renal/: Yes: Anuria Breast(s): Yes: WNL Musculoskeletal: Yes: Back Pain, Joint Stiffness, Joint Swelling, Muscle Pain, Muscle Weakness Extremities: Yes: WNL Edema: No Peripheral Pulses WNL: Yes Neurological: Yes: Alert, Oriented Labs: CBC, BMP 10/27/16 13:30 Problem List - Problems (1) PAF (paroxysmal atrial fibrillation) Code(s): I48.0 - PAROXYSMAL ATRIAL FIBRILLATION (2) Peripheral artery disease Code(s): I73.9 - PERIPHERAL VASCULAR DISEASE, UNSPECIFIED (3) Pulmonary hypertension Code(s): I27.2 - OTHER SECONDARY PULMONARY HYPERTENSION (4) Diabetes mellitus, insulin dependent (IDDM), uncontrolled Code(s): E10.65 - TYPE 1 DIABETES MELLITUS WITH HYPERGLYCEMIA Qualifiers: Diabetes mellitus complication detail: with diabetic retinopathy Assessment/Plan Current Active Problems Left leg pain (Acute) Sciatica of left side (Acute) iddm/esrd htn ashd hyperlipidemia diabetic neuropathy Abnormal Lab Results 10/27/16 10/27/16 08:57 13:30 WBC 11.4 H RDW 17.5 H Sodium 135 L Chloride 95 L BUN 64 H Creatinine 10.8 H* Calcium 7.9 L Albumin 3.3 L Laboratory Results - last 24 hr 10/27/16 10/27/16 10/27/16 08:57 08:57 13:30 WBC 11.4 H RBC 4.44 Hgb 13.0 Hct 40.0 MCV 89.9 MCHC 32.5 RDW 17.5 H Plt Count 205 MPV 9.2 Neutrophils % 71.2 Lymphocytes % 19.9 D Monocytes % 8.3 Eosinophils % 0.1 Basophils % 0.5 Sodium Cancelled 135 L Potassium Cancelled 3.9 D Chloride Cancelled 95 L Carbon Dioxide Cancelled 25 Anion Gap Cancelled 15 BUN Cancelled 64 H Creatinine Cancelled 10.8 H* Creat Clearance w eGFR Cancelled 3.48 POC Glucometer Random Glucose Cancelled 105 D Calcium Cancelled 7.9 L Phosphorus 3.9 Total Bilirubin Cancelled 0.3 AST Cancelled 26 ALT Cancelled 25 Alkaline Phosphatase Cancelled 108 D Total Protein Cancelled 7.0 Albumin Cancelled 3.3 L 10/27/16 22:38 WBC RBC Hgb Hct MCV MCHC RDW Plt Count MPV Neutrophils % Lymphocytes % Monocytes % Eosinophils % Basophils % Sodium Potassium Chloride Carbon Dioxide Anion Gap BUN Creatinine Creat Clearance w eGFR POC Glucometer 159 Random Glucose Calcium Phosphorus Total Bilirubin AST ALT Alkaline Phosphatase Total Protein Albumin plan: levemir 10 units bid novolog achs scale neurontin 300mg bid mr ls spine ck lipid painel
--- NOTE | 2016-10-28 03:50 | HOSP ---
Subjective - Review of Symptoms Events since last encounter: patient hypotensive 60 systolic Subjective: ronn s/p HD today, removed 2.5 liters (not more than usual) now is hypotensive 60 systolic from baseline of 90-100. Patient is asymptomatic, denies h/a, dizziness, chest pain, sob, focal neuro deficits. Denies bleeding or abd pain. States that she frequently gets hypotensive in the 60's after HD and is sometimes given a little fluid if she feels dizzy. General: No: Chills, Malaise HEENT: No: Head Aches, Visual Changes Pulmonary: No: Dyspnea, Cough Cardiovascular: No: Chest Pain, Palpitations, Orthopnea, Edema Gastrointestinal: No: Nausea, Vomiting, Abdominal Pain, Diarrhea, Melena, Hematochezia Genitourinary: No: Dysuria Musculoskeletal: Yes: No Symptoms Neurological: No: Weakness, Numbness, Change in speech, Confusion, Seizures Physical Examination Vital Signs: Vital Signs Temperature 98.8 F 10/28/16 02:00 Pulse Rate 68 10/28/16 02:00 Respiratory Rate 18 10/28/16 02:00 Blood Pressure 68/32 10/28/16 02:00 O2 Sat by Pulse Oximetry (%) 94 L 10/27/16 17:05 Constitutional: Yes: Well Nourished, Calm. No: Diaphoresis Eyes: Yes: Conjunctiva Clear, EOM Intact, PERRL. No: Ptosis, Sclera Icterus HENT: Yes: Atraumatic Neck: Yes: Supple. No: Lymphadenopathy Cardiovascular: Yes: Regular Rate and Rhythm, S1, S2 Respiratory: Yes: CTA Bilaterally Gastrointestinal: Yes: Normal Bowel Sounds, Soft, Abdomen, Obese. No: Tenderness Musculoskeletal: No: Joint Stiffness, Muscle Weakness Neurological: Yes: Alert, Oriented, Cran Nerves II-XII Intact, Other (reflexes 1 + b/l brachial and patellar. strength 5/5 blf upper and lower extremity). No: Ataxia, Dysarthria, Facial Droop, Lethargy, Loss of Sensation, Numbness, Paresthesia Labs: CBC, BMP 10/27/16 13:30 Hospitalist Encounter Assessment: 76 yo F with PMH of CVA, AFIB, HTN, Hyperlipdemia, Constipation, Renal Failure- on HD, anemia, gi bleed, and DM, who was found to be hypotensive after HD Hypotension -systolic 60 from baseline of 90-100 -common event for patient associated with fluid removal on HD (removed 2.5 L this morning) -asymptomatic, negative neuro exam, no cardiac symptoms, so will not administer fluid -PCP notified Visit type - Emergency Visit Emergency Visit: Yes ED Registration Date: 10/27/16 Care time: The patient presented to the Emergency Department on the above date and was hospitalized for further evaluation of their emergent condition. - New Patient This patient is new to me today: Yes Date on this admission: 10/28/16 - Critical Care Critical Care patient: No
[2016-10-28] MEDS ORDERED: GABAPENTIN 300 MG CAPSULE (FP) PO ONE (04:16)
[2016-10-28] MEDS: INSULIN SLIDING SCALE (NOVOLOG) 1 VIAL SQ SCH ×4 (06:32→21:49)
[2016-10-28] MEDS: INSULIN DETEMIR 100 UNITS/ML MDV SQ SCH ×2 (06:53→21:48)
[2016-10-28 08:27] LABS: MCH 29.3 pg (25.7-33.7); MCHC 32.5 g/dl (32.0-36.0); MEAN CELL VOLUME 90.4 fl (80-96); MEAN PLT VOLUME 9.1 fl (7.5-11.1); PLATELET COUNT 172 K/MM3 (134-434)
[2016-10-28] MEDS: SEVELAMER CARBONATE 800 MG TAB (FP) PO SCH ×3 (08:28→17:43)
[2016-10-28] MEDS ORDERED: PT OWN MED DRAWER 7, Y5N ONE (09:36)
[2016-10-28] MEDS: GABAPENTIN 300 MG CAPSULE (FP) PO SCH ×4 (09:38→21:49)
[2016-10-28] MEDS: ASPIRIN 81 MG CHEWABLE TABLETS PO SCH (09:38)
[2016-10-28 09:41] LABS: INR 1.82 (0.82-1.09); PROTHROMBIN TIME (PATIENT) 20.3 SEC (9.98-11.88)
[2016-10-28 09:44] LABS: ACTIVATED PTT 37.3 SECONDS (26.9-34.4)
[2016-10-28] MEDS: METOPROLOL SUCCINATE 25 MG TAB.SR.24H (FP) PO SCH (09:47)
[2016-10-28] MEDS: DIGOXIN 0.125 MG TABLET (FP) PO SCH (09:47)
[2016-10-28 10:23] LABS: ALBUMIN 3.1 g/dl (3.4-5.0); BILIRUBIN,TOTAL 0.3 mg/dL (0.2-1.0); CALCIUM 8.7 mg/dL (8.5-10.1); MAGNESIUM 2.1 mg/dL (1.8-2.4); PHOSPHOROUS 3.5 mg/dL (2.5-4.9); TOT PROT 6.7 g/dl (6.4-8.2)
[2016-10-28 10:50] LABS: CREATININE 8.4 mg/dL (0.55-1.02)
--- NOTE | 2016-10-28 11:23 | PN ---
Progress Note, Physician History of Present Illness: BACK PAIN - Current Medication List Current Medications: Active Medications Aspirin (Asa -) 81 mg PO DAILY [facility] Last Admin: 10/28/16 09:38 Dose: 81 mg Atorvastatin Calcium (Lipitor -) 40 mg PO HS [facility] Last Admin: 10/27/16 22:33 Dose: 40 mg Dexamethasone Sodium Phosphate (Decadron Injection -) 4 mg IVPB Q6H-IV [facility] Digoxin (Lanoxin -) 0.125 mg PO DAILY [facility] Last Admin: 10/28/16 09:47 Dose: 0.125 mg Docusate Sodium (Colace -) 100 mg PO BID PRN PRN Reason: CONSTIPATION Gabapentin (Neurontin -) 300 mg PO QID [facility] Last Admin: 10/28/16 09:38 Dose: 300 mg Insulin Aspart (Novolog Vial Sliding Scale -) 1 vial SQ ACHS [facility] PRN Reason: Protocol Last Admin: 10/28/16 06:32 Dose: Not Given Insulin Detemir (Levemir Vial) 10 units SQ BID@0700,2200 [facility] Last Admin: 10/28/16 06:53 Dose: Not Given Metoprolol Succinate (Toprol Xl -) 25 mg PO DAILY [facility] Last Admin: 10/28/16 09:47 Dose: Not Given Ondansetron HCl (Zofran Odt -) 4 mg SL Q12H PRN PRN Reason: NAUSEA AND/OR VOMITING Sevelamer Carbonate (Renvela -) 4,000 mg PO TIDCM [facility] Last Admin: 10/28/16 08:28 Dose: 4,000 mg Tramadol HCl (Ultram -) 100 mg PO Q6H PRN PRN Reason: PAIN Last Admin: 10/28/16 09:37 Dose: 100 mg Warfarin Sodium (Coumadin -) 8 mg PO DAILY@1800 [facility] Last Admin: 10/27/16 19:41 Dose: 8 mg - Objective Vital Signs: Vital Signs Temperature 98.5 F 10/28/16 06:00 Pulse Rate 82 10/28/16 09:47 Respiratory Rate 18 10/28/16 06:00 Blood Pressure 105/38 10/28/16 06:00 O2 Sat by Pulse Oximetry (%) 94 L 10/27/16 21:00 Cardiovascular: Yes: Regular Rate and Rhythm Respiratory: Yes: Regular, CTA Bilaterally Gastrointestinal: Yes: Normal Bowel Sounds, Soft Musculoskeletal: Yes: Back Pain Edema: RUE: Trace Neurological: Yes: Alert, Oriented Labs: CBC, BMP 10/28/16 07:10 10/28/16 07:10 INR, PTT INR 1.82 (0.82-1.09) H D 10/28/16 07:10 Problem List - Problems (1) Back pain Assessment/Plan: MRI OF LS NS CONSULT IV DECADRON Code(s): M54.9 - DORSALGIA, UNSPECIFIED Qualifiers: Back pain location: low back pain Chronicity: acute Sciatica presence: with sciatica (2) Sciatica of left side Assessment/Plan: ABOVE Code(s): M54.32 - SCIATICA, LEFT SIDE (3) Atrial fibrillation Assessment/Plan: ON COUMADIN MONITOR INR Code(s): I48.91 - UNSPECIFIED ATRIAL FIBRILLATION (4) ESRD (end stage renal disease) on dialysis Assessment/Plan: ON DIALYSIS RENAL ON BOARD Code(s): N18.6 - END STAGE RENAL DISEASE Z99.2 - DEPENDENCE ON RENAL DIALYSIS
[2016-10-28] MEDS: DEXAMETHASONE SOD PHOSPHATE 4 MG/1 ML VIAL IVPB SCH ×3 (12:30→21:48)
--- NOTE | 2016-10-28 12:41 | PN ---
Progress Note (short form) - Note Progress Note: Renal Follow up for ESRD on HD Pt seen and examined at the bedside awake and alert continues to have intermittent severe pain, no pain at this time s/p dialysis yesterday no sob or chest pain for MRI today Vital Signs Temperature 98.5 F 10/28/16 06:00 Pulse Rate 82 10/28/16 09:47 Respiratory Rate 18 10/28/16 06:00 Blood Pressure 105/38 10/28/16 06:00 O2 Sat by Pulse Oximetry (%) 94 L 10/27/16 21:00 Intake & Output 10/25/16 10/26/16 10/27/16 10/28/16 23:59 23:59 23:59 23:59 Intake Total 0 Balance 0 Weight 252 lb 254 lb 1.6 oz Gen: NAD, awake and alert CVS: RRR, No M/R Lungs: CTA, no rales or wheeze Abd: soft NT/ND Ext: No edema, clubbing or edema CBC, BMP 10/28/16 07:10 10/28/16 07:10 Laboratory Tests 10/28/16 07:10 Calcium 8.7 Phosphorus 3.5 Magnesium 2.1 Current Medications Aspirin (Asa -) 81 mg PO DAILY [facility] Last Admin: 10/28/16 09:38 Dose: 81 mg Atorvastatin Calcium (Lipitor -) 40 mg PO HS [facility] Last Admin: 10/27/16 22:33 Dose: 40 mg Dexamethasone Sodium Phosphate (Decadron Injection -) 4 mg IVPB Q6H-IV [facility] Last Admin: 10/28/16 12:30 Dose: 4 mg Digoxin (Lanoxin -) 0.125 mg PO DAILY [facility] Last Admin: 10/28/16 09:47 Dose: 0.125 mg Docusate Sodium (Colace -) 100 mg PO BID PRN PRN Reason: CONSTIPATION Gabapentin (Neurontin -) 300 mg PO QID [facility] Last Admin: 10/28/16 09:38 Dose: 300 mg Insulin Aspart (Novolog Vial Sliding Scale -) 1 vial SQ ACHS [facility] PRN Reason: Protocol Last Admin: 10/28/16 12:02 Dose: 7 units Insulin Detemir (Levemir Vial) 10 units SQ BID@0700,2200 [facility] Last Admin: 10/28/16 06:53 Dose: Not Given Metoprolol Succinate (Toprol Xl -) 25 mg PO DAILY [facility] Last Admin: 10/28/16 09:47 Dose: Not Given Ondansetron HCl (Zofran Odt -) 4 mg SL Q12H PRN PRN Reason: NAUSEA AND/OR VOMITING Sevelamer Carbonate (Renvela -) 4,000 mg PO TIDCM [facility] Last Admin: 10/28/16 12:29 Dose: 4,000 mg Tramadol HCl (Ultram -) 100 mg PO Q6H PRN PRN Reason: PAIN Last Admin: 10/28/16 09:37 Dose: 100 mg Warfarin Sodium (Coumadin -) 8 mg PO DAILY@1800 [facility] Last Admin: 10/27/16 19:41 Dose: 8 mg A/P 76 year old woman with PMhx of ESRD on HD (MWF), Chronic Hypotension, DM, HLD who presented with LE pain. #ESRD on HD no acute indication for dialysis today next dialysis planned for sunday dose all meds for intermitent HD #LE pain/Spondyloisthesis/Sciatica Pain control Neurology follow up MRI of L spine pending #Renal Osteodystrphy continue Renvela Trend Phos levels Alon Page DO
--- NOTE | 2016-10-28 14:26 | PN ---
Progress Note, Physician Chief Complaint: back pain radiating to the leg - Current Medication List Current Medications: Active Medications Aspirin (Asa -) 81 mg PO DAILY [facility] Last Admin: 10/28/16 09:38 Dose: 81 mg Atorvastatin Calcium (Lipitor -) 40 mg PO HS [facility] Last Admin: 10/27/16 22:33 Dose: 40 mg Dexamethasone Sodium Phosphate (Decadron Injection -) 4 mg IVPB Q6H-IV [facility] Last Admin: 10/28/16 14:14 Dose: Not Given Digoxin (Lanoxin -) 0.125 mg PO DAILY [facility] Last Admin: 10/28/16 09:47 Dose: 0.125 mg Docusate Sodium (Colace -) 100 mg PO BID PRN PRN Reason: CONSTIPATION Gabapentin (Neurontin -) 300 mg PO QID [facility] Last Admin: 10/28/16 13:43 Dose: 300 mg Insulin Aspart (Novolog Vial Sliding Scale -) 1 vial SQ ACHS [facility] PRN Reason: Protocol Last Admin: 10/28/16 12:02 Dose: 7 units Insulin Detemir (Levemir Vial) 10 units SQ BID@0700,2200 [facility] Last Admin: 10/28/16 06:53 Dose: Not Given Metoprolol Succinate (Toprol Xl -) 25 mg PO DAILY [facility] Last Admin: 10/28/16 09:47 Dose: Not Given Ondansetron HCl (Zofran Odt -) 4 mg SL Q12H PRN PRN Reason: NAUSEA AND/OR VOMITING Sevelamer Carbonate (Renvela -) 4,000 mg PO TIDCM [facility] Last Admin: 10/28/16 12:29 Dose: 4,000 mg Tramadol HCl (Ultram -) 100 mg PO Q6H PRN PRN Reason: PAIN Last Admin: 10/28/16 09:37 Dose: 100 mg Warfarin Sodium (Coumadin -) 8 mg PO DAILY@1800 [facility] Last Admin: 10/27/16 19:41 Dose: 8 mg - Objective Vital Signs: Vital Signs Temperature 98.1 F 10/28/16 10:00 Pulse Rate 82 10/28/16 10:00 Respiratory Rate 18 10/28/16 10:00 Blood Pressure 85/51 10/28/16 10:00 O2 Sat by Pulse Oximetry (%) 94 L 10/27/16 21:00 Labs: CBC, BMP 10/28/16 07:10 10/28/16 07:10 INR, PTT INR 1.82 (0.82-1.09) H D 10/28/16 07:10 - ....Imaging MRI: Pending (ordered but not yet done) Problem List - Problems (1) Back pain Assessment/Plan: Continues to await MRI. Continue medication as ordered. We'll f/u with you. Once MRI done, may have more specific interventions available. Code(s): M54.9 - DORSALGIA, UNSPECIFIED Qualifiers: Back pain location: low back pain Chronicity: acute Sciatica presence: with sciatica (2) Sciatica of left side Code(s): M54.32 - SCIATICA, LEFT SIDE
[2016-10-28] MEDS: WARFARIN NA 2 MG TABLET (UD) PO SCH (17:42)
[2016-10-28] MEDS ORDERED: WARFARIN NA 5 MG TABLET (UD) PO SCH (18:00)
--- NOTE | 2016-10-28 19:14 | PN ---
Progress Note (short form) - Note Progress Note: NEUROSURGERY CONSULT DICTATED Chart reviewed Pt examined H/o HTN, Afib on chronic AC, DM, ESRD on HD C/o left sided back and sciatica last year and could not walk and was treated with PT successfully. Chronic LBP. 10 days h/o acute B sciatica to B buttocks, posterior thighs, and calves. No weakness this time. Gabapentin 100 mg bid did not help her. No fever/chill. PE: General- obese, unremarkable; R UE AVF CN- non-focal; Motor- 5/5 B LE/UE; Sensation- decreased distal B LE vibration; DTR- hyporeflexic B; + SLR B at 50 degrees Back- tender LS junction B CT 2016- L5-S1 severe DDD with facet hypertrophy; L4-5 spondylolisthesis with facet arthrosis and mild stenosis MRI 2017- Multilevel DDD, heterogeneous marrow changes c/w HD; L4-5 spondylolisthesis with mild central and moderate lateral recess/foramenal stenosis; L4-5 facet joint effusion, Severe L5-S1 DDD with space narrowing L4-5 spondylolisthesis with mild-moderate stenosis and B L4-5 radiculopathy DM with peripheral neuropathy Cont medical management- meds, PT for modalities/truncal stabilization Neurosurgical intervention not recommended given no significant focal deficits and pt with multiple medical co-morbidities (cardiac on AC, endocrine, renal) If persistent sciatica can consider pain management input
[2016-10-28] MEDS: ATORVASTATIN CA 40 MG TABLET (FP) PO SCH (21:48)
[2016-10-29] MEDS: DEXAMETHASONE SOD PHOSPHATE 4 MG/1 ML VIAL IVPB SCH ×4 (03:03→21:17)
--- NOTE | 2016-10-29 05:17 | CONS ---
DATE OF CONSULTATION: 10/28/2016 CHIEF COMPLAINT: Bilateral sciatica. HISTORY OF PRESENT ILLNESS: The patient is a 76-year-old right-handed female with a history of diabetes, end-stage renal disease on hemodialysis, hypertension, atrial fibrillation on chronic anticoagulation who complains of chronic intermittent lower back pain and sciatica. About a year ago, she complained of left-sided sciatica and did not ambulate as a result. She underwent a course of physical therapy and her symptoms improved. She was quite weak at that time. She had only experienced chronic intermittent lower back pain until about 10 days ago, when she complains of acute bilateral sciatica radiating down to the buttocks, posterior thighs and calves. This is not associated with weakness or numbness. She was prescribed gabapentin by Dr. David, but it did not help her symptoms. The patient denies any recent fevers or chills or recent infections. She has not tried physical therapy again and nor has she received a pain management injection. PAST MEDICAL HISTORY: Significant for diabetes, end-stage renal disease on hemodialysis, hypertension, atrial fibrillation on chronic anticoagulation. CURRENT MEDICATIONS: Include Zofran, Decadron, Coumadin, Neurontin, Toprol, Lanoxin, Colace, Lipitor, insulin, baby aspirin, Ultram. ALLERGIES: PENICILLIN. SOCIAL HISTORY: She does not smoke or drink. She lives at home with her family. REVIEW OF SYSTEMS: Otherwise negative for other major cardiovascular, pulmonary , gastrointestinal, genitourinary, endocrinologic, neurologic, or psychological problems except for the above. She has been obese but has been trying to lose weight. PHYSICAL EXAMINATION: Vital Signs: Temperature 98.8, blood pressure 118/45, pulse rate 86. Oxygen saturation is 94.7 on room air. HEENT: Examination shows her to be normocephalic, atraumatic, anicteric. Neck: Supple with no carotid bruits. Cor: Irregular rhythm. Lungs: Clear bilaterally. Abdomen: Obese but benign. Extremities: Shows right lower extremity AV fistula. There are no signs of DVT in the lower extremities. Neurologic: She is awake, alert, and oriented x3 . Cranial nerve examination is intact II-XII. Motor examination shows 5/5 strength of the upper and lower extremities without fasciculations or atrophy. Sensory examination is intact to light touch but she has diminished pinprick of the lower extremities and vibratory sensation. Deep tendon reflexes are hyporeflexive throughout. There is no pathologic long tract sign. Gait is not tested for safety reasons. Back: Tenders of the lumbosacral junction bilaterally toward the sciatic notch. She has a positive straight leg raise bilaterally at about 50 degrees. LABORATORY DATA: Shows white blood cell count to be 9,000. ESR is 40. Hemoglobin is 11.9. INR is 1.82 and PTT is 37.3. Serum sodium is 136. Potassium is 4.2. BUN and creatinine are 46 and 8.4, respectively. Hepatitis panel is pending. IMAGING: X-ray of the lumbar spine done yesterday demonstrated L4-5 and L5-S1 degenerative disk disease with associated L4-5 spondylolisthesis, which appears unchanged from CT scan of last year and August 2015. In August 2015, CT demonstrated moderate spondylosis throughout. There was facet hypertrophy at L4-5 and L5-S1 > L3-4. There is grade 1 L4-5 spondylolisthesis with lateral recess narrowing as well as foraminal narrowing. There was no fracture or dislocation. MRI of the lumbar spine done earlier today demonstrated multilevel degenerative disk disease worse at L5 -S1. There is also moderate degenerative disease at L4-5 with spondylolisthesis as well as endplate sclerosis. There is moderate foraminal narrowing and lateral recess stenosis. There is also mild L4-5 central stenosis with associated disk bulge. There is facet hypertrophy with mild facet joint effusion. The L5-S1 level is almost completely collapsed. There are heterogeneous marrow changes consistent with her history of hemodialysis. There are no acute signs of infection. IMPRESSION: 1. Severe L5-S1 degenerative disk disease and L4-5 spondylolisthesis with bilateral L4-5 radiculopathy. 2. Diabetes with diabetic peripheral neuropathy. 3. Obesity. 4. Hypertension and atrial fibrillation on chronic anticoagulation. 5. End-stage renal disease on hemodialysis. RECOMMENDATIONS: The patient presents with acute bilateral sciatica of approximately 10 days' duration. She previously had experienced lower back pain, left-sided sciatica. She has been placed on Decadron by the medical team previously. Her neurological examination was nonfocal other than signs associated with diabetic peripheral neuropathy. Her gabapentin has also been increased to 300 mg four times a day. Given that she is neurologically nonfocal, as well as her multiple medical comorbidities, no neurosurgical intervention is recommended. A course of physical therapy should be contemplated with emphasis on modality and truncal stabilization exercises. She is also to continue to lose weight to decrease the axial load on the lumbar spine. If her pain persists, pain management consultation could be considered; however, she will need to get off anticoagulation, aspirin, in order to receive the pain management injection which could be a logistical issue. The above was discussed with the patient at bedside and she expressed understanding of her current condition. The pros and cons of treatment approaches were discussed. She is in agreement with pursuing only medical treatment at this time. All questions were answered. NIKHIL GONCALVES M.D. [id number] MTDD
[2016-10-29] MEDS: INSULIN SLIDING SCALE (NOVOLOG) 1 VIAL SQ SCH ×4 (06:37→21:19)
[2016-10-29] MEDS: INSULIN DETEMIR 100 UNITS/ML MDV SQ SCH ×2 (06:37→21:17)
[2016-10-29] MEDS ORDERED: INSULIN (NOVOLOG) ASPART 100 UNITS/ML 10ML VIAL ONE (06:53)
[2016-10-29 08:12] LABS: CHOLESTEROL 131 mg/dL (50-200)
[2016-10-29 08:14] LABS: LDL CHOLESTEROL (ONLY SJRH) 53 mg/dL (5-100)
[2016-10-29] MEDS: SEVELAMER CARBONATE 800 MG TAB (FP) PO SCH ×3 (08:50→17:53)
[2016-10-29] MEDS: GABAPENTIN 300 MG CAPSULE (FP) PO SCH ×4 (10:43→21:19)
[2016-10-29] MEDS: METOPROLOL SUCCINATE 25 MG TAB.SR.24H (FP) PO SCH (10:44)
[2016-10-29] MEDS: DIGOXIN 0.125 MG TABLET (FP) PO SCH (10:44)
[2016-10-29] MEDS: ASPIRIN 81 MG CHEWABLE TABLETS PO SCH (10:44)
--- NOTE | 2016-10-29 12:29 | PN ---
Progress Note, Physician History of Present Illness: BACK PAIN - Current Medication List Current Medications: Active Medications Aspirin (Asa -) 81 mg PO DAILY [facility] Last Admin: 10/29/16 10:44 Dose: 81 mg Atorvastatin Calcium (Lipitor -) 40 mg PO HS [facility] Last Admin: 10/28/16 21:48 Dose: 40 mg Dexamethasone Sodium Phosphate (Decadron Injection -) 4 mg IVPB Q6H-IV [facility] Last Admin: 10/29/16 08:51 Dose: 4 mg Digoxin (Lanoxin -) 0.125 mg PO DAILY [facility] Last Admin: 10/29/16 10:44 Dose: 0.125 mg Docusate Sodium (Colace -) 100 mg PO BID PRN PRN Reason: CONSTIPATION Gabapentin (Neurontin -) 300 mg PO QID [facility] Last Admin: 10/29/16 10:43 Dose: 300 mg Insulin Aspart (Novolog Vial Sliding Scale -) 1 vial SQ ACHS [facility] PRN Reason: Protocol Last Admin: 10/29/16 11:58 Dose: 8 units Insulin Detemir (Levemir Vial) 10 units SQ BID@0700,2200 [facility] Last Admin: 10/29/16 06:37 Dose: 10 units Metoprolol Succinate (Toprol Xl -) 25 mg PO DAILY [facility] Last Admin: 10/29/16 10:44 Dose: Not Given Ondansetron HCl (Zofran Odt -) 4 mg SL Q12H PRN PRN Reason: NAUSEA AND/OR VOMITING Sevelamer Carbonate (Renvela -) 4,000 mg PO TIDCM [facility] Last Admin: 10/29/16 12:02 Dose: 4,000 mg Tramadol HCl (Ultram -) 100 mg PO Q6H PRN PRN Reason: PAIN Last Admin: 10/28/16 17:42 Dose: 100 mg Warfarin Sodium (Coumadin -) 8 mg PO DAILY@1800 [facility] Last Admin: 10/28/16 17:42 Dose: 8 mg - Objective Vital Signs: Vital Signs Temperature 97.9 F 10/29/16 10:00 Pulse Rate 70 10/29/16 10:44 Respiratory Rate 18 10/29/16 10:00 Blood Pressure 90/44 10/29/16 10:00 O2 Sat by Pulse Oximetry (%) 94 L 10/27/16 21:00 Cardiovascular: Yes: Regular Rate and Rhythm Respiratory: Yes: Regular, CTA Bilaterally Gastrointestinal: Yes: Normal Bowel Sounds, Soft Labs: CBC, BMP 10/28/16 07:10 10/28/16 07:10 INR, PTT INR 1.82 (0.82-1.09) H D 10/28/16 07:10 Problem List - Problems (1) Back pain Assessment/Plan: MRI OF LS NS CONSULT IV DECADRON Code(s): M54.9 - DORSALGIA, UNSPECIFIED Qualifiers: Back pain location: low back pain Chronicity: acute Sciatica presence: with sciatica (2) Sciatica of left side Assessment/Plan: ABOVE Code(s): M54.32 - SCIATICA, LEFT SIDE (3) Atrial fibrillation Assessment/Plan: ON COUMADIN MONITOR INR Code(s): I48.91 - UNSPECIFIED ATRIAL FIBRILLATION (4) ESRD (end stage renal disease) on dialysis Assessment/Plan: ON DIALYSIS RENAL ON BOARD Code(s): N18.6 - END STAGE RENAL DISEASE Z99.2 - DEPENDENCE ON RENAL DIALYSIS
[2016-10-29 14:06] LABS: INR 2.4 (0.82-1.09); PROTHROMBIN TIME (PATIENT) 26.9 SEC (9.98-11.88)
--- NOTE | 2016-10-29 16:15 | PN ---
Progress Note (short form) - Note Progress Note: NEUROSURGERY Acute B sciatica to B buttocks, posterior thighs, and calves previously, very little today. Tmax 98.8, VSS PE: General- obese, unremarkable; R UE AVF CN- non-focal; Motor- 5/5 B LE/UE; Sensation- decreased distal B LE vibration; DTR- hyporeflexic B; + SLR B at 50 degrees Back- tender LS junction B CT 2015- L5-S1 severe DDD with facet hypertrophy; L4-5 spondylolisthesis with facet arthrosis and mild stenosis MRI - Multilevel DDD, heterogeneous marrow changes c/w HD; L4-5 spondylolisthesis with mild central and moderate lateral recess/foramenal stenosis; L4-5 facet joint effusion, Severe L5-S1 DDD with space narrowing L4-5 spondylolisthesis with mild-moderate stenosis and B L4-5 radiculopathy DM with peripheral neuropathy Cont medical management- meds (on increased dosage of Neurontin), PT for modalities/truncal stabilization Neurosurgical intervention not recommended If recurrent sciatica can consider pain management input
[2016-10-29] MEDS: WARFARIN NA 2 MG TABLET (UD) PO SCH (17:53)
--- NOTE | 2016-10-29 18:25 | PN ---
Progress Note, Physician Chief Complaint: back pain radiating to the leg, but much better today. She is in good spirits. Dr. Hunt's note appreciated. - Current Medication List Current Medications: Active Medications Aspirin (Asa -) 81 mg PO DAILY [facility] Last Admin: 10/29/16 10:44 Dose: 81 mg Atorvastatin Calcium (Lipitor -) 40 mg PO HS [facility] Last Admin: 10/28/16 21:48 Dose: 40 mg Dexamethasone Sodium Phosphate (Decadron Injection -) 4 mg IVPB Q6H-IV [facility] Last Admin: 10/29/16 14:28 Dose: 4 mg Digoxin (Lanoxin -) 0.125 mg PO DAILY [facility] Last Admin: 10/29/16 10:44 Dose: 0.125 mg Docusate Sodium (Colace -) 100 mg PO BID PRN PRN Reason: CONSTIPATION Gabapentin (Neurontin -) 300 mg PO QID [facility] Last Admin: 10/29/16 17:53 Dose: 300 mg Insulin Aspart (Novolog Vial Sliding Scale -) 1 vial SQ ACHS [facility] PRN Reason: Protocol Last Admin: 10/29/16 17:53 Dose: 8 units Insulin Detemir (Levemir Vial) 10 units SQ BID@0700,2200 [facility] Last Admin: 10/29/16 06:37 Dose: 10 units Metoprolol Succinate (Toprol Xl -) 25 mg PO DAILY [facility] Last Admin: 10/29/16 10:44 Dose: Not Given Ondansetron HCl (Zofran Odt -) 4 mg SL Q12H PRN PRN Reason: NAUSEA AND/OR VOMITING Sevelamer Carbonate (Renvela -) 4,000 mg PO TIDCM [facility] Last Admin: 10/29/16 17:53 Dose: 4,000 mg Tramadol HCl (Ultram -) 100 mg PO Q6H PRN PRN Reason: PAIN Last Admin: 10/28/16 17:42 Dose: 100 mg Warfarin Sodium (Coumadin -) 8 mg PO DAILY@1800 [facility] Last Admin: 10/29/16 17:53 Dose: 8 mg - Objective Vital Signs: Vital Signs Temperature 97.8 F 10/29/16 14:43 Pulse Rate 72 10/29/16 14:43 Respiratory Rate 18 10/29/16 14:43 Blood Pressure 106/48 10/29/16 14:43 O2 Sat by Pulse Oximetry (%) 94 L 10/27/16 21:00 Labs: CBC, BMP 10/28/16 07:10 10/28/16 07:10 INR, PTT INR 2.40 (0.82-1.09) H D 10/29/16 13:35 - ....Imaging MRI: Report Reviewed, Image Reviewed (multilevel degenerative disc disease) Problem List - Problems (1) Back pain Code(s): M54.9 - DORSALGIA, UNSPECIFIED Qualifiers: Back pain location: low back pain Chronicity: acute Sciatica presence: with sciatica (2) Sciatica of left side Code(s): M54.32 - SCIATICA, LEFT SIDE Assessment/Plan lumbar radiculopathy, improved, on medical management (and time). Recommend PT , weight loss, and medication management. Can f/u with us as outpatient. Thanks.
--- NOTE | 2016-10-29 21:01 | EKG ---
Test Reason : Blood Pressure : / mmHG Vent. Rate : 065 BPM Atrial Rate : 129 BPM P-R Int : 000 ms QRS Dur : 120 ms QT Int : 454 ms P-R-T Axes : 000 -42 -03 degrees QTc Int : 472 ms ATRIAL FIBRILLATION LEFT AXIS DEVIATION LOW VOLTAGE QRS NON-SPECIFIC INTRA-VENTRICULAR CONDUCTION DELAY ABNORMAL ECG WHEN COMPARED WITH ECG OF 09-DEC-2013 11:32, T WAVE INVERSION NO LONGER EVIDENT IN CURRENT EKG Confirmed by VICKIE ALBERT MD ([id number]) on 10/29/2016 9:00:46 PM Referred By: Confirmed By:VICKIE ALBERT MD
[2016-10-29] MEDS: ATORVASTATIN CA 40 MG TABLET (FP) PO SCH (21:18)
[2016-10-30] MEDS: DEXAMETHASONE SOD PHOSPHATE 4 MG/1 ML VIAL IVPB SCH ×3 (02:40→22:57)
[2016-10-30] MEDS: INSULIN DETEMIR 100 UNITS/ML MDV SQ SCH ×2 (06:27→22:58)
[2016-10-30] MEDS: INSULIN SLIDING SCALE (NOVOLOG) 1 VIAL SQ SCH ×4 (06:27→23:04)
[2016-10-30 08:45] LABS: PHOSPHOROUS 4.3 mg/dL (2.5-4.9)
[2016-10-30 08:52] LABS: COCKROFT - GAULT 7.599
[2016-10-30 08:55] LABS: CREATININE 11.9 mg/dL (0.55-1.02)
[2016-10-30] MEDS: SEVELAMER CARBONATE 800 MG TAB (FP) PO SCH ×4 (09:02→19:03)
[2016-10-30 09:13] LABS: MCH 29.1 pg (25.7-33.7); MCHC 32.3 g/dl (32.0-36.0); MEAN CELL VOLUME 90.3 fl (80-96); MEAN PLT VOLUME 9.1 fl (7.5-11.1); PLATELET COUNT 173 K/MM3 (134-434); RDW 16.8 % (11.6-15.6); WHITE BLOOD COUNT 13.4 K/mm3 (4.0-10.0)
--- NOTE | 2016-10-30 09:31 | PN ---
Progress Note (short form) - Note Progress Note: NEUROSURGERY Mild pain R buttock Undergoing HD right now AF, VSS PE: General- obese, unremarkable; R UE AVF CN- non-focal; Motor- 5/5 B LE/UE; Sensation- decreased distal B LE vibration; DTR- hyporeflexic B Back- mild tenderness LS junction B L4-5 spondylolisthesis with mild-moderate stenosis and B L4-5 radiculopathy DM with peripheral neuropathy Cont medical management- meds, start PT for modalities/truncal stabilization Neurosurgical intervention not recommended given non-focal exam and overall stable lumbar condition If recurrent sciatica can consider pain management input for EPSI though management complicated by the underlying AC regimen
[2016-10-30] MEDS: METOPROLOL SUCCINATE 25 MG TAB.SR.24H (FP) PO SCH (10:00)
[2016-10-30] MEDS: DIGOXIN 0.125 MG TABLET (FP) PO SCH ×2 (10:00→12:18)
[2016-10-30] MEDS ORDERED: HEPARIN NA (PORCINE) 5,000 UNITS/ML 1ML VIAL IVPUSH ONE (10:00)
[2016-10-30] MEDS: ASPIRIN 81 MG CHEWABLE TABLETS PO SCH ×2 (10:00→12:19)
--- NOTE | 2016-10-30 10:02 | PN ---
Progress Note (short form) - Note Progress Note: Renal Follow up for ESRD on HD Pt seen and examined during dialysis BP 84/60 (baseline) no complaints pain is improve but still present uf goal is 2.5L Vital Signs Temperature 98.1 F 10/30/16 06:00 Pulse Rate 78 10/30/16 06:00 Respiratory Rate 18 10/30/16 06:00 Blood Pressure 136/81 10/30/16 06:00 O2 Sat by Pulse Oximetry (%) 92 L 10/29/16 21:00 Intake & Output 10/27/16 10/28/16 10/29/16 10/30/16 23:59 23:59 23:59 23:59 Intake Total 0 560 1900 150 Balance 0 560 1900 150 Weight 252 lb 254 lb 1.6 oz 257 lb 6.4 oz 256 lb 2 oz Gen: NAD, awake and alert CVS: RRR, No M/R Lungs: CTA, no rales or wheeze Abd: soft NT/ND Ext: No edema, clubbing or edema CBC, BMP 10/30/16 06:45 10/30/16 06:45 Laboratory Tests 10/30/16 06:45 Calcium 9.0 Phosphorus 4.3 D Current Medications Aspirin (Asa -) 81 mg PO DAILY [facility] Last Admin: 10/29/16 10:44 Dose: 81 mg Atorvastatin Calcium (Lipitor -) 40 mg PO HS [facility] Last Admin: 10/29/16 21:18 Dose: 40 mg Dexamethasone Sodium Phosphate (Decadron Injection -) 4 mg IVPB Q6H-IV [facility] Last Admin: 10/30/16 09:08 Dose: Not Given Digoxin (Lanoxin -) 0.125 mg PO DAILY [facility] Last Admin: 10/29/16 10:44 Dose: 0.125 mg Docusate Sodium (Colace -) 100 mg PO BID PRN PRN Reason: CONSTIPATION Gabapentin (Neurontin -) 300 mg PO QID [facility] Last Admin: 10/29/16 21:19 Dose: 300 mg Insulin Aspart (Novolog Vial Sliding Scale -) 1 vial SQ ACHS [facility] PRN Reason: Protocol Last Admin: 10/30/16 06:27 Dose: 5 units Insulin Detemir (Levemir Vial) 10 units SQ BID@0700,2200 [facility] Last Admin: 10/30/16 06:27 Dose: 10 units Metoprolol Succinate (Toprol Xl -) 25 mg PO DAILY [facility] Last Admin: 10/29/16 10:44 Dose: Not Given Ondansetron HCl (Zofran Odt -) 4 mg SL Q12H PRN PRN Reason: NAUSEA AND/OR VOMITING Sevelamer Carbonate (Renvela -) 4,000 mg PO TIDCM [facility] Last Admin: 10/30/16 09:02 Dose: 4,000 mg Tramadol HCl (Ultram -) 100 mg PO Q6H PRN PRN Reason: PAIN Last Admin: 10/28/16 17:42 Dose: 100 mg Warfarin Sodium (Coumadin -) 8 mg PO DAILY@1800 [facility] Last Admin: 10/29/16 17:53 Dose: 8 mg A/P 76 year old woman with PMhx of ESRD on HD (MWF), Chronic Hypotension, DM, HLD who presented with LE pain. #ESRD on HD tolerating dialysis well today #LE pain/Spondyloisthesis/Sciatica pain control mangement as per Neurology and Neuro S PT #Renal Osteodystrphy continue Renvela Trend Phos levels Alon Page DO
[2016-10-30] MEDS: GABAPENTIN 300 MG CAPSULE (FP) PO SCH ×4 (12:15→22:58)
--- NOTE | 2016-10-30 12:19 | PN ---
Progress Note, Physician History of Present Illness: BACK PAIN - Current Medication List Current Medications: Active Medications Aspirin (Asa -) 81 mg PO DAILY [facility] Last Admin: 10/29/16 10:44 Dose: 81 mg Atorvastatin Calcium (Lipitor -) 40 mg PO HS [facility] Last Admin: 10/29/16 21:18 Dose: 40 mg Dexamethasone Sodium Phosphate (Decadron Injection -) 4 mg IVPB Q6H-IV [facility] Last Admin: 10/30/16 09:08 Dose: Not Given Digoxin (Lanoxin -) 0.125 mg PO DAILY [facility] Last Admin: 10/29/16 10:44 Dose: 0.125 mg Docusate Sodium (Colace -) 100 mg PO BID PRN PRN Reason: CONSTIPATION Gabapentin (Neurontin -) 300 mg PO QID [facility] Last Admin: 10/29/16 21:19 Dose: 300 mg Insulin Aspart (Novolog Vial Sliding Scale -) 1 vial SQ ACHS [facility] PRN Reason: Protocol Last Admin: 10/30/16 12:07 Dose: 5 units Insulin Detemir (Levemir Vial) 10 units SQ BID@0700,2200 [facility] Last Admin: 10/30/16 06:27 Dose: 10 units Metoprolol Succinate (Toprol Xl -) 25 mg PO DAILY [facility] Last Admin: 10/29/16 10:44 Dose: Not Given Ondansetron HCl (Zofran Odt -) 4 mg SL Q12H PRN PRN Reason: NAUSEA AND/OR VOMITING Sevelamer Carbonate (Renvela -) 4,000 mg PO TIDCM [facility] Last Admin: 10/30/16 09:02 Dose: 4,000 mg Tramadol HCl (Ultram -) 100 mg PO Q6H PRN PRN Reason: PAIN Last Admin: 10/28/16 17:42 Dose: 100 mg Warfarin Sodium (Coumadin -) 8 mg PO DAILY@1800 [facility] Last Admin: 10/29/16 17:53 Dose: 8 mg - Objective Vital Signs: Vital Signs Temperature 97.7 F 10/30/16 12:14 Pulse Rate 74 10/30/16 12:14 Respiratory Rate 24 10/30/16 12:14 Blood Pressure 108/62 10/30/16 12:14 O2 Sat by Pulse Oximetry (%) 92 L 10/29/16 21:00 Cardiovascular: Yes: S1, S2 Respiratory: Yes: Regular, CTA Bilaterally Gastrointestinal: Yes: Normal Bowel Sounds, Soft Labs: CBC, BMP 10/30/16 06:45 10/30/16 06:45 INR, PTT INR 2.40 (0.82-1.09) H D 10/29/16 13:35 Problem List - Problems (1) Back pain Assessment/Plan: MRI OF LS NS CONSULT IV DECADRON Code(s): M54.9 - DORSALGIA, UNSPECIFIED Qualifiers: Back pain location: low back pain Chronicity: acute Sciatica presence: with sciatica (2) Sciatica of left side Assessment/Plan: ABOVE Code(s): M54.32 - SCIATICA, LEFT SIDE (3) Atrial fibrillation Assessment/Plan: ON COUMADIN MONITOR INR Code(s): I48.91 - UNSPECIFIED ATRIAL FIBRILLATION (4) ESRD (end stage renal disease) on dialysis Assessment/Plan: ON DIALYSIS RENAL ON BOARD Code(s): N18.6 - END STAGE RENAL DISEASE Z99.2 - DEPENDENCE ON RENAL DIALYSIS
[2016-10-30] MEDS ORDERED: LACTULOSE 20 GM/30 ML UDC (FOR ORAL USE ONLY) PO PRN (12:27)
[2016-10-30] MEDS: WARFARIN NA 2 MG TABLET (UD) PO SCH (18:04)
[2016-10-30] MEDS: ATORVASTATIN CA 40 MG TABLET (FP) PO SCH (22:57)
[2016-10-31] MEDS: INSULIN DETEMIR 100 UNITS/ML MDV SQ SCH ×2 (06:11→21:42)
[2016-10-31] MEDS: INSULIN SLIDING SCALE (NOVOLOG) 1 VIAL SQ SCH ×4 (06:12→21:42)
[2016-10-31] MEDS ORDERED: INSULIN DETEMIR 100 UNITS/ML MDV SQ ONE (07:02)
--- NOTE | 2016-10-31 07:28 | PN ---
Progress Note (short form) - Note Progress Note: Neurology FU : back pain radiating to the leg, better though 4/10 VAS. prior to [facility] stay , >10/10. has mobilized with a cane. no focal weakness in LE. - Current Medication List Current Medications: Active Medications Aspirin (Asa -) 81 mg PO DAILY [facility] Last Admin: 10/29/16 10:44 Dose: 81 mg Atorvastatin Calcium (Lipitor -) 40 mg PO HS [facility] Last Admin: 10/28/16 21:48 Dose: 40 mg Dexamethasone Sodium Phosphate (Decadron Injection -) 4 mg IVPB Q6H-IV [facility] Last Admin: 10/29/16 14:28 Dose: 4 mg Digoxin (Lanoxin -) 0.125 mg PO DAILY [facility] Last Admin: 10/29/16 10:44 Dose: 0.125 mg Docusate Sodium (Colace -) 100 mg PO BID PRN PRN Reason: CONSTIPATION Gabapentin (Neurontin -) 300 mg PO QID [facility] Last Admin: 10/29/16 17:53 Dose: 300 mg Insulin Aspart (Novolog Vial Sliding Scale -) 1 vial SQ ACHS [facility] PRN Reason: Protocol Last Admin: 10/29/16 17:53 Dose: 8 units Insulin Detemir (Levemir Vial) 10 units SQ BID@0700,2200 [facility] Last Admin: 10/29/16 06:37 Dose: 10 units Metoprolol Succinate (Toprol Xl -) 25 mg PO DAILY [facility] Last Admin: 10/29/16 10:44 Dose: Not Given Ondansetron HCl (Zofran Odt -) 4 mg SL Q12H PRN PRN Reason: NAUSEA AND/OR VOMITING Sevelamer Carbonate (Renvela -) 4,000 mg PO TIDCM [facility] Last Admin: 10/29/16 17:53 Dose: 4,000 mg Tramadol HCl (Ultram -) 100 mg PO Q6H PRN PRN Reason: PAIN Last Admin: 10/28/16 17:42 Dose: 100 mg Warfarin Sodium (Coumadin -) 8 mg PO DAILY@1800 [facility] Last Admin: 10/29/16 17:53 Dose: 8 mg - Objective Vital Signs: Vital Signs Period Temp Pulse Resp BP Sys/Prince Pulse Ox Last 24 Hr 97.7 F-98.2 F 62-96 18-24 82-149/40-68 93 Labs: CBCD WBC 13.4 K/mm3 (4.0-10.0) H D 10/30/16 06:45 RBC 3.83 M/mm3 (3.60-5.2) 10/30/16 06:45 Hgb 11.2 GM/dL (10.7-15.3) 10/30/16 06:45 Hct 34.6 % (32.4-45.2) 10/30/16 06:45 MCV 90.3 fl (80-96) 10/30/16 06:45 MCHC 32.3 g/dl (32.0-36.0) 10/30/16 06:45 RDW 16.8 % (11.6-15.6) H 10/30/16 06:45 Plt Count 173 K/MM3 (134-434) 10/30/16 06:45 MPV 9.1 fl (7.5-11.1) 10/30/16 06:45 CMP Sodium 129 mmol/L (136-145) L 10/30/16 06:45 Potassium 4.8 mmol/L (3.5-5.1) 10/30/16 06:45 Chloride 88 mmol/L (98-107) L 10/30/16 06:45 Carbon Dioxide 23 mmol/L (21-32) 10/30/16 06:45 Anion Gap 18 (8-16) H 10/30/16 06:45 BUN 94 mg/dL (7-18) H D 10/30/16 06:45 Creatinine 11.9 mg/dL (0.55-1.02) H* D 10/30/16 06:45 Creat Clearance w eGFR 0.33 (>60) 10/28/16 07:10 Calcium 9.0 mg/dL (8.5-10.1) 10/30/16 06:45 Total Bilirubin 0.3 mg/dL (0.2-1.0) 10/28/16 07:10 AST 16 U/L (15-37) D 10/28/16 07:10 ALT 23 U/L (12-78) 10/28/16 07:10 Alkaline Phosphatase 89 U/L (45-117) 10/28/16 07:10 Total Protein 6.7 g/dl (6.4-8.2) 10/28/16 07:10 Albumin 3.1 g/dl (3.4-5.0) L 10/28/16 07:10 - ....Imaging MRI: Report Reviewed, Image Reviewed (multilevel degenerative disc disease) Problem List - Problems (1) Back pain Code(s): M54.9 - DORSALGIA, UNSPECIFIED Qualifiers: Back pain location: low back pain Chronicity: acute Sciatica presence: with sciatica (2) Sciatica of left side Code(s): M54.32 - SCIATICA, LEFT SIDE Assessment/Plan lumbar radiculopathy, improving on medical management Recommend PT/rehab, weight loss, and pain /RX control. Although Pain Management can be considered , since she is on AC, would have to be reversed-would pursue conservative measures first and consider this option as oupt if necessary. Taper decadron off -- 4 TID changed to BID then in AM can DC. cont tramadol/ gabapentin. Dr Starks [phone] Problem List - Problems (1) Left leg pain Code(s): M79.605 - PAIN IN LEFT LEG (2) Sciatica of left side Code(s): M54.32 - SCIATICA, LEFT SIDE (3) Atrial fibrillation Code(s): I48.91 - UNSPECIFIED ATRIAL FIBRILLATION
--- NOTE | 2016-10-31 08:13 | PN ---
Progress Note (short form) - Note Progress Note: NEUROSURGERY Mild pain L thigh today Overall pain level improved AF, VSS PE: General- obese, unremarkable CN- non-focal; Motor- 5/5 B LE/UE; Sensation- decreased distal B LE vibration; DTR- hyporeflexic B L4-5 spondylolisthesis with mild-moderate stenosis and B L4-5 radiculopathy R > L DM with peripheral neuropathy Cont medical management- meds, start PT for modalities/truncal stabilization Stable lumbar condition with intact motor exam Mobilize
[2016-10-31 08:43] LABS: INR 2.57 (0.82-1.09); PROTHROMBIN TIME (PATIENT) 28.8 SEC (9.98-11.88)
--- NOTE | 2016-10-31 08:44 | PN ---
Progress Note, Physician History of Present Illness: BACK PAIN LEG PAIN - Current Medication List Current Medications: Active Medications Aspirin (Asa -) 81 mg PO DAILY [facility] Last Admin: 10/30/16 12:19 Dose: 81 mg Atorvastatin Calcium (Lipitor -) 40 mg PO HS [facility] Last Admin: 10/30/16 22:57 Dose: 40 mg Dexamethasone Sodium Phosphate (Decadron Injection -) 4 mg IVPB BID [facility] Last Admin: 10/30/16 22:57 Dose: 4 mg Digoxin (Lanoxin -) 0.125 mg PO DAILY [facility] Last Admin: 10/30/16 12:18 Dose: 0.125 mg Docusate Sodium (Colace -) 100 mg PO BID PRN PRN Reason: CONSTIPATION Gabapentin (Neurontin -) 300 mg PO QID [facility] Last Admin: 10/30/16 22:58 Dose: 300 mg Insulin Aspart (Novolog Vial Sliding Scale -) 1 vial SQ ACHS [facility] PRN Reason: Protocol Last Admin: 10/31/16 06:12 Dose: 3 units Insulin Detemir (Levemir Vial) 10 units SQ BID@0700,2200 [facility] Last Admin: 10/31/16 06:11 Dose: 10 units Lactulose (Cephulac (Oral Use)) 20 gm PO TID PRN PRN Reason: CONSTIPATION Metoprolol Succinate (Toprol Xl -) 25 mg PO DAILY [facility] Last Admin: 10/30/16 10:00 Dose: Not Given Ondansetron HCl (Zofran Odt -) 4 mg SL Q12H PRN PRN Reason: NAUSEA AND/OR VOMITING Sevelamer Carbonate (Renvela -) 4,000 mg PO TIDCM [facility] Last Admin: 10/30/16 19:03 Dose: 4,000 mg Warfarin Sodium (Coumadin -) 8 mg PO DAILY@1800 [facility] Last Admin: 10/30/16 18:04 Dose: 8 mg - Objective Vital Signs: Vital Signs Temperature 98.0 F 10/31/16 06:00 Pulse Rate 75 10/31/16 06:00 Respiratory Rate 20 10/31/16 06:00 Blood Pressure 103/43 10/31/16 06:00 O2 Sat by Pulse Oximetry (%) 93 L 10/30/16 21:00 Cardiovascular: Yes: Regular Rate and Rhythm Respiratory: Yes: Regular, CTA Bilaterally Gastrointestinal: Yes: Normal Bowel Sounds, Soft Labs: CBC, BMP 10/30/16 06:45 10/30/16 06:45 INR, PTT INR 2.40 (0.82-1.09) H D 10/29/16 13:35 Problem List - Problems (1) Back pain Assessment/Plan: MRI OF LS--NOTED NS CONSULT IV DECADRON X 24 HRS PT THEN SNF Code(s): M54.9 - DORSALGIA, UNSPECIFIED Qualifiers: Back pain location: low back pain Chronicity: acute Sciatica presence: with sciatica (2) Sciatica of left side Assessment/Plan: ABOVE Code(s): M54.32 - SCIATICA, LEFT SIDE (3) Atrial fibrillation Assessment/Plan: ON COUMADIN MONITOR INR Code(s): I48.91 - UNSPECIFIED ATRIAL FIBRILLATION (4) ESRD (end stage renal disease) on dialysis Assessment/Plan: ON DIALYSIS RENAL ON BOARD Code(s): N18.6 - END STAGE RENAL DISEASE Z99.2 - DEPENDENCE ON RENAL DIALYSIS
[2016-10-31] MEDS: SEVELAMER CARBONATE 800 MG TAB (FP) PO SCH ×3 (08:52→18:19)
[2016-10-31] MEDS ORDERED: PT OWN MED DRAWER 7, Y5N ONE ×2 (10:25→18:32)
[2016-10-31] MEDS: DIGOXIN 0.125 MG TABLET (FP) PO SCH (10:36)
[2016-10-31] MEDS: DEXAMETHASONE SOD PHOSPHATE 4 MG/1 ML VIAL IVPB SCH ×2 (10:36→21:42)
[2016-10-31] MEDS: METOPROLOL SUCCINATE 25 MG TAB.SR.24H (FP) PO SCH (10:37)
[2016-10-31] MEDS: ASPIRIN 81 MG CHEWABLE TABLETS PO SCH (10:37)
--- NOTE | 2016-10-31 10:42 | CONS ---
DATE OF CONSULTATION: 10/31/2016 PHYSICAL MEDICINE REHABILITATION CONSULTATION HISTORY OF PRESENT ILLNESS: The patient is a 76-year-old woman with past medical history of end-stage renal disease, on dialysis, diabetes, hyperlipidemia and lumbar stenosis, who was admitted with severe back pain radiating into the left more than right lower extremity. The patient states she had an episode previously in which she had to go to inpatient rehabilitation. X-rays on admission showed spondylolisthesis grade 1 at L4-L5 as well as chronic degenerative diskogenic disease at L4-L5 and L5-S1, which are unchanged from August 06, 2015. She underwent an MRI which showed mild stenosis at L4-L5, but a marked degree of facet arthropathy at L4-L5 and a moderate amount of subarticular canal and lateral recess stenosis at L4-L5. The patient states that the pain was constant when she came in, radiating again into the left posterior thigh and calf, but now it is mainly when she stands or ambulates. The patient does have problems moving her bowels at times and takes lactulose, which apparently is written already, 20 g up to 3 times a day as needed. The patient is also on hemodialysis 3 times a week at [facility], where her daughter works. She is on gabapentin 300 mg 3 times a day and takes warfarin chronically for atrial fibrillation. Blood work: Her INR is therapeutic at 2.57 as of today. CBC as of yesterday showed elevated WBCs of 13.4, platelet count 173 (normal), hemoglobin stable at 11.2. Chemistry last taken yesterday and showed sodium 129, potassium 4.8, chloride 88, BUN 94, creatinine 11.9. Again, the patient is feeling better and starting to ambulate with a walker, but has not apparently been assessed by Physical Therapy. REVIEW OF PAST MEDICAL AND SURGICAL HISTORY: Atrial fibrillation, hypertension, hyperlipidemia, diabetes, end-stage renal disease (on hemodialysis), chronic back pain, lumbar stenosis. SOCIAL HISTORY: Lives with her in an apartment. She has 12 steps. She currently is ambulating just to the bathroom using a walker, with assistance. REVIEW OF SYSTEMS: No lightheadedness, dizziness, blurry vision, double vision, nausea or vomiting, difficulty swallowing, difficulty chewing, chest pain, shortness of breath, fever, chills, bowel or bladder change. She does not urinate, which is chronic, and has some difficulty recently with bowels. She takes lactulose, which apparently is already ordered as needed. No numbness or tingling. No weakness in the upper or lower extremities. Again, the back pain starts on the left side of her lower back, radiating into the buttock and down the posterior thigh, and also at times into the right lower extremity. No skin rash. PHYSICAL EXAMINATION: General: An elderly woman who is seen sitting, standing and ambulating. HEENT: She is normocephalic and atraumatic. Extraocular muscles appear intact. Neck: Supple. Extremities: Without any pitting edema or calf tenderness. Skin: Without any rash or breakdown. Neuromuscular: She is awake, alert, oriented x3. Cranial nerves 2 through 12 grossly intact. She has good strength and range in the upper and lower extremities. Normal sensation. Symmetric reflexes, which are depressed to absent in the ankle jerk. She has tenderness in the left lumbar paraspinal musculature. Decreased lumbar extension. Better tolerated forward flexion. She has difficulty getting up from a lower surface, but she is able to ambulate about 10 to 15 feet with a forward-flexed posture, using a walker, with some difficulty. OVERALL IMPRESSION: 1. Deficits in mobility and activities of daily living. 2. Low back pain radiating into the left lower extremity more than right, consistent with S1 radiculopathy with canal stenosis at the L4-L5, facet arthropathy at L4-L5 and also subarticular and lateral recess stenosis at L4-L5. 3. End-stage renal disease, on hemodialysis. 4. Electrolyte abnormalities. 5. Atrial fibrillation, on anticoagulation. 6. Diabetes. 7. Hyperlipidemia. 8. Hypertension. 9. Obesity. 10. Constipation. PLAN AND SUGGESTIONS: 1. Physical therapy for mobilization, transfers, gait training, strengthening, reconditioning, stairs if appropriate. 2. Out of bed to chair. 3. Ambulate was assistance on the unit. 4. Continue gabapentin. 5. Not a good candidate for epigastric injection due to anticoagulation. 6. The patient may require short-term rehab in a assisted facility if she is not able to negotiate stairs, as she has to out for dialysis 3 times a week. Thank you for this referral. CANDELARIA SUE M.D. RASHEL/[id number]
[2016-10-31] MEDS: GABAPENTIN 300 MG CAPSULE (FP) PO SCH ×4 (10:44→21:42)
--- NOTE | 2016-10-31 11:25 | PN ---
Progress Note (short form) - Note Progress Note: Renal Follow up for ESRD on HD Pt seen and examined at the bedside pain is now 4/10 able to ambulate some what s/p dialysis yesterday Vital Signs Temperature 98.3 F 10/31/16 10:00 Pulse Rate 79 10/31/16 10:36 Respiratory Rate 18 10/31/16 10:00 Blood Pressure 104/54 10/31/16 10:00 O2 Sat by Pulse Oximetry (%) 93 L 10/30/16 21:00 Intake & Output 10/28/16 10/29/16 10/30/16 10/31/16 23:59 23:59 23:59 23:59 Intake Total 560 1900 550 50 Balance 560 1900 550 50 Weight 254 lb 1.6 oz 257 lb 6.4 oz 256 lb 2 oz 260 lb 12.8 oz Gen: NAD CVS: RRR, No M/R Lungs: CTA, no rales or wheeze Abd: soft NT/ND Ext: No edema, clubbing or edema CBC, BMP 10/30/16 06:45 10/30/16 06:45 Current Medications Aspirin (Asa -) 81 mg PO DAILY [facility] Last Admin: 10/31/16 10:37 Dose: 81 mg Atorvastatin Calcium (Lipitor -) 40 mg PO HS [facility] Last Admin: 10/30/16 22:57 Dose: 40 mg Dexamethasone Sodium Phosphate (Decadron Injection -) 4 mg IVPB BID [facility] Last Admin: 10/31/16 10:36 Dose: 4 mg Digoxin (Lanoxin -) 0.125 mg PO DAILY [facility] Last Admin: 10/31/16 10:36 Dose: 0.125 mg Docusate Sodium (Colace -) 100 mg PO BID PRN PRN Reason: CONSTIPATION Gabapentin (Neurontin -) 300 mg PO QID [facility] Last Admin: 10/31/16 10:44 Dose: 300 mg Insulin Aspart (Novolog Vial Sliding Scale -) 1 vial SQ ACHS [facility] PRN Reason: Protocol Last Admin: 10/31/16 06:12 Dose: 3 units Insulin Detemir (Levemir Vial) 10 units SQ BID@0700,2200 [facility] Last Admin: 10/31/16 06:11 Dose: 10 units Lactulose (Cephulac (Oral Use)) 20 gm PO TID PRN PRN Reason: CONSTIPATION Metoprolol Succinate (Toprol Xl -) 25 mg PO DAILY [facility] Last Admin: 10/31/16 10:37 Dose: 25 mg Ondansetron HCl (Zofran Odt -) 4 mg SL Q12H PRN PRN Reason: NAUSEA AND/OR VOMITING Sevelamer Carbonate (Renvela -) 4,000 mg PO TIDCM [facility] Last Admin: 10/31/16 08:52 Dose: 4,000 mg Warfarin Sodium (Coumadin -) 8 mg PO DAILY@1800 [facility] Last Admin: 10/30/16 18:04 Dose: 8 mg A/P 76 year old woman with PMhx of ESRD on HD (MWF), Chronic Hypotension, DM, HLD who presented with LE pain. #ESRD on HD no acute indication for dialysis today next dialysis is planned for tomorrow dose all med for intermittent HD #LE pain/Spondyloisthesis/Sciatica pain control mangement as per Neurology and Neuro S physical therapy today #Renal Osteodystrphy continue Renvela Trend Phos levels Alon Page DO
[2016-10-31] MEDS ORDERED: INSULIN (NOVOLOG) ASPART 100 UNITS/ML 10ML VIAL ONE ×2 (11:51→18:32)
[2016-10-31] MEDS: WARFARIN NA 2 MG TABLET (UD) PO SCH (18:18)
[2016-10-31] MEDS: ATORVASTATIN CA 40 MG TABLET (FP) PO SCH (21:42)
[2016-11-01] MEDS: INSULIN DETEMIR 100 UNITS/ML MDV SQ SCH (06:31)
[2016-11-01] MEDS: INSULIN SLIDING SCALE (NOVOLOG) 1 VIAL SQ SCH ×2 (06:33→13:58)
[2016-11-01] MEDS: SEVELAMER CARBONATE 800 MG TAB (FP) PO SCH ×2 (08:59→14:00)
[2016-11-01] MEDS: DEXAMETHASONE SOD PHOSPHATE 4 MG/1 ML VIAL IVPB SCH ×2 (10:11→14:03)
[2016-11-01] MEDS: DIGOXIN 0.125 MG TABLET (FP) PO SCH ×2 (10:11→14:01)
[2016-11-01] MEDS: ASPIRIN 81 MG CHEWABLE TABLETS PO SCH ×2 (10:11→14:01)
[2016-11-01 10:12] LABS: MCH 29.3 pg (25.7-33.7); MCHC 32.1 g/dl (32.0-36.0); MEAN CELL VOLUME 91.4 fl (80-96); MEAN PLT VOLUME 9.5 fl (7.5-11.1); PLATELET COUNT 182 K/MM3 (134-434); RDW 17.3 % (11.6-15.6); WHITE BLOOD COUNT 12.7 K/mm3 (4.0-10.0)
[2016-11-01] MEDS: METOPROLOL SUCCINATE 25 MG TAB.SR.24H (FP) PO SCH (10:12)
[2016-11-01] MEDS: GABAPENTIN 300 MG CAPSULE (FP) PO SCH ×2 (10:12→14:02)
[2016-11-01 10:30] VITALS: TEMP 98
--- NOTE | 2016-11-01 10:46 | PN ---
Progress Note, Physician Chief Complaint: Radiculopathy History of Present Illness: Doing better, at Dialysis right now. Plan D/c with Physical therapy and pain management. - Current Medication List Current Medications: Active Medications Aspirin (Asa -) 81 mg PO DAILY [facility] Last Admin: 11/01/16 10:11 Dose: Not Given Atorvastatin Calcium (Lipitor -) 40 mg PO HS [facility] Last Admin: 10/31/16 21:42 Dose: 40 mg Dexamethasone Sodium Phosphate (Decadron Injection -) 4 mg IVPB BID [facility] Last Admin: 11/01/16 10:11 Dose: Not Given Digoxin (Lanoxin -) 0.125 mg PO DAILY [facility] Last Admin: 11/01/16 10:11 Dose: Not Given Docusate Sodium (Colace -) 100 mg PO BID PRN PRN Reason: CONSTIPATION Gabapentin (Neurontin -) 300 mg PO QID [facility] Last Admin: 11/01/16 10:12 Dose: Not Given Heparin Sodium (Porcine) (Heparin -) 1,000 unit IVPUSH ONCE ONE Stop: 11/01/16 06:01 Insulin Aspart (Novolog Vial Sliding Scale -) 1 vial SQ ACHS [facility] PRN Reason: Protocol Last Admin: 11/01/16 06:33 Dose: 8 units Insulin Detemir (Levemir Vial) 10 units SQ BID@0700,2200 [facility] Last Admin: 11/01/16 06:31 Dose: 10 units Lactulose (Cephulac (Oral Use)) 20 gm PO TID PRN PRN Reason: CONSTIPATION Metoprolol Succinate (Toprol Xl -) 25 mg PO DAILY [facility] Last Admin: 11/01/16 10:12 Dose: Not Given Ondansetron HCl (Zofran Odt -) 4 mg SL Q12H PRN PRN Reason: NAUSEA AND/OR VOMITING Sevelamer Carbonate (Renvela -) 4,000 mg PO TIDCM [facility] Last Admin: 11/01/16 08:59 Dose: 4,000 mg Warfarin Sodium (Coumadin -) 8 mg PO DAILY@1800 [facility] Last Admin: 10/31/16 18:18 Dose: 8 mg - Objective Vital Signs: Vital Signs Temperature 98.0 F 11/01/16 09:10 Pulse Rate 60 11/01/16 10:15 Respiratory Rate 18 11/01/16 10:15 Blood Pressure 105/61 11/01/16 10:15 O2 Sat by Pulse Oximetry (%) 95 10/31/16 22:00 Constitutional: Yes: Well Nourished, No Distress, Calm Cardiovascular: Yes: Pulse Irregular, Murmur (LSB Grade II), S1, S2 Respiratory: Yes: Regular Gastrointestinal: Yes: Normal Bowel Sounds Musculoskeletal: Yes: Back Pain, Other (Mild Left lower extremity pain) Extremities: Yes: WNL Edema: No Neurological: Yes: Alert, Oriented Labs: CBC, BMP 11/01/16 09:15 INR, PTT INR 2.57 (0.82-1.09) H 10/31/16 07:00 Problem List - Problems (1) Left leg pain Assessment/Plan: PAIN MUCH BETTER TODAY. WILL NEED PHYSICAL THERAPY AND PAIN MANAGEMENT AT [facility]. Code(s): M79.605 - PAIN IN LEFT LEG (2) Sciatica of left side Code(s): M54.32 - SCIATICA, LEFT SIDE (3) Atrial fibrillation Assessment/Plan: Chronic, continue AC Code(s): I48.91 - UNSPECIFIED ATRIAL FIBRILLATION (4) Diabetes mellitus, insulin dependent (IDDM), uncontrolled Code(s): E10.65 - TYPE 1 DIABETES MELLITUS WITH HYPERGLYCEMIA Qualifiers: Diabetes mellitus complication detail: with chronic kidney disease Chronic kidney disease stage: on chronic dialysis (5) Anemia Code(s): D64.9 - ANEMIA, UNSPECIFIED Qualifiers: Anemia type: other cause Other causes of anemia: chronic disease, kidney Qualified Code(s): N18.9 - Chronic kidney disease, unspecified; D63.1 - Anemia in chronic kidney disease (6) ESRD (end stage renal disease) Code(s): N18.6 - END STAGE RENAL DISEASE Assessment/Plan Plan D/c to [facility] for intensive Physical Therapy and pain management.
[2016-11-01 10:51] LABS: CALCIUM 8.8 mg/dL (8.5-10.1); COCKROFT - GAULT 8.9845
[2016-11-01 10:58] LABS: CREATININE 10.6 mg/dL (0.55-1.02)
[2016-11-01] MEDS ORDERED: HEPARIN NA (PORCINE) 5,000 UNITS/ML 1ML VIAL IVPUSH ONE (11:45)
--- NOTE | 2016-11-01 12:34 | PN ---
Progress Note (short form) - Note Progress Note: back pain radiating to the leg, better though 4/10 VAS. walking around with PT no focal weakness in LE. - Current Medication List Current Medications: Active Medications Aspirin (Asa -) 81 mg PO DAILY [facility] Last Admin: 10/29/16 10:44 Dose: 81 mg Atorvastatin Calcium (Lipitor -) 40 mg PO HS [facility] Last Admin: 10/28/16 21:48 Dose: 40 mg Dexamethasone Sodium Phosphate (Decadron Injection -) 4 mg IVPB Q6H-IV [facility] Last Admin: 10/29/16 14:28 Dose: 4 mg Digoxin (Lanoxin -) 0.125 mg PO DAILY [facility] Last Admin: 10/29/16 10:44 Dose: 0.125 mg Docusate Sodium (Colace -) 100 mg PO BID PRN PRN Reason: CONSTIPATION Gabapentin (Neurontin -) 300 mg PO QID [facility] Last Admin: 10/29/16 17:53 Dose: 300 mg Insulin Aspart (Novolog Vial Sliding Scale -) 1 vial SQ ACHS [facility] PRN Reason: Protocol Last Admin: 10/29/16 17:53 Dose: 8 units Insulin Detemir (Levemir Vial) 10 units SQ BID@0700,2200 [facility] Last Admin: 10/29/16 06:37 Dose: 10 units Metoprolol Succinate (Toprol Xl -) 25 mg PO DAILY [facility] Last Admin: 10/29/16 10:44 Dose: Not Given Ondansetron HCl (Zofran Odt -) 4 mg SL Q12H PRN PRN Reason: NAUSEA AND/OR VOMITING Sevelamer Carbonate (Renvela -) 4,000 mg PO TIDCM [facility] Last Admin: 10/29/16 17:53 Dose: 4,000 mg Tramadol HCl (Ultram -) 100 mg PO Q6H PRN PRN Reason: PAIN Last Admin: 10/28/16 17:42 Dose: 100 mg Warfarin Sodium (Coumadin -) 8 mg PO DAILY@1800 [facility] Last Admin: 10/29/16 17:53 Dose: 8 mg - Objective Vital Signs: Vital Signs Temperature 98.0 F 11/01/16 09:10 Pulse Rate 61 11/01/16 11:15 Respiratory Rate 18 11/01/16 11:15 Blood Pressure 129/63 11/01/16 11:15 O2 Sat by Pulse Oximetry (%) 95 10/31/16 22:00 Labs: CBCD WBC 12.7 K/mm3 (4.0-10.0) H 11/01/16 09:15 RBC 3.86 M/mm3 (3.60-5.2) 11/01/16 09:15 Hgb 11.3 GM/dL (10.7-15.3) 11/01/16 09:15 Hct 35.3 % (32.4-45.2) 11/01/16 09:15 MCV 91.4 fl (80-96) 11/01/16 09:15 MCHC 32.1 g/dl (32.0-36.0) 11/01/16 09:15 RDW 17.3 % (11.6-15.6) H 11/01/16 09:15 Plt Count 182 K/MM3 (134-434) 11/01/16 09:15 MPV 9.5 fl (7.5-11.1) 11/01/16 09:15 CMP Sodium 131 mmol/L (136-145) L 11/01/16 09:15 Potassium 5.0 mmol/L (3.5-5.1) 11/01/16 09:15 Chloride 92 mmol/L (98-107) L 11/01/16 09:15 Carbon Dioxide 24 mmol/L (21-32) 11/01/16 09:15 Anion Gap 15 (8-16) 11/01/16 09:15 BUN 104 mg/dL (7-18) H 11/01/16 09:15 Creatinine 10.6 mg/dL (0.55-1.02) H* 11/01/16 09:15 Creat Clearance w eGFR 0.33 (>60) 10/28/16 07:10 Calcium 8.8 mg/dL (8.5-10.1) 11/01/16 09:15 Total Bilirubin 0.3 mg/dL (0.2-1.0) 10/28/16 07:10 AST 16 U/L (15-37) D 10/28/16 07:10 ALT 23 U/L (12-78) 10/28/16 07:10 Alkaline Phosphatase 89 U/L (45-117) 10/28/16 07:10 Total Protein 6.7 g/dl (6.4-8.2) 10/28/16 07:10 Albumin 3.1 g/dl (3.4-5.0) L 10/28/16 07:10 - ....Imaging MRI: Report Reviewed, Image Reviewed (multilevel degenerative disc disease) Problem List - Problems (1) Back pain Code(s): M54.9 - DORSALGIA, UNSPECIFIED Qualifiers: Back pain location: low back pain Chronicity: acute Sciatica presence: with sciatica (2) Sciatica of left side Code(s): M54.32 - SCIATICA, LEFT SIDE Assessment/Plan lumbar radiculopathy, improving on medical management Recommend PT/rehab, weight loss, and pain /RX control. Although Pain Management can be considered , since she is on AC, would have to be reversed-would pursue conservative measures first and consider this option as oupt if necessary. to TAPER decadron off cont tramadol/ gabapentin. awaiting rehab placement Dr Starks [phone] Problem List - Problems (1) Left leg pain Code(s): M79.605 - PAIN IN LEFT LEG (2) Sciatica of left side Code(s): M54.32 - SCIATICA, LEFT SIDE (3) Atrial fibrillation Code(s): I48.91 - UNSPECIFIED ATRIAL FIBRILLATION
--- NOTE | 2016-11-01 13:35 | PN ---
Progress Note (short form) - Note Progress Note: Renal Follow up for ESRD on HD Pt seen and examined during dialysis BP stable, access with good function lower back pain is improved, worse with ambulation Vital Signs Temperature 98.0 F 11/01/16 09:10 Pulse Rate 61 11/01/16 11:15 Respiratory Rate 18 11/01/16 11:15 Blood Pressure 129/63 11/01/16 11:15 O2 Sat by Pulse Oximetry (%) 95 10/31/16 22:00 Intake & Output 10/29/16 10/30/16 10/31/16 11/01/16 23:59 23:59 23:59 23:59 Intake Total 1900 550 710 150 Balance 1900 550 710 150 Weight 257 lb 6.4 oz 256 lb 2 oz 260 lb 12.8 oz 269 lb 11.2 oz Gen: NAD CVS: RRR, No M/R Lungs: CTA, no rales or wheeze Abd: soft NT/ND Ext: No edema, clubbing or edema CBC, BMP 11/01/16 09:15 11/01/16 09:15 Laboratory Tests 11/01/16 09:15 Calcium 8.8 Phosphorus 4.0 Current Medications Aspirin (Asa -) 81 mg PO DAILY [facility] Last Admin: 11/01/16 10:11 Dose: Not Given Atorvastatin Calcium (Lipitor -) 40 mg PO HS [facility] Last Admin: 10/31/16 21:42 Dose: 40 mg Dexamethasone Sodium Phosphate (Decadron Injection -) 4 mg IVPB BID [facility] Last Admin: 11/01/16 10:11 Dose: Not Given Digoxin (Lanoxin -) 0.125 mg PO DAILY [facility] Last Admin: 11/01/16 10:11 Dose: Not Given Docusate Sodium (Colace -) 100 mg PO BID PRN PRN Reason: CONSTIPATION Gabapentin (Neurontin -) 300 mg PO QID [facility] Last Admin: 11/01/16 10:12 Dose: Not Given Insulin Aspart (Novolog Vial Sliding Scale -) 1 vial SQ ACHS [facility] PRN Reason: Protocol Last Admin: 11/01/16 06:33 Dose: 8 units Insulin Detemir (Levemir Vial) 10 units SQ BID@0700,2200 [facility] Last Admin: 11/01/16 06:31 Dose: 10 units Lactulose (Cephulac (Oral Use)) 20 gm PO TID PRN PRN Reason: CONSTIPATION Metoprolol Succinate (Toprol Xl -) 25 mg PO DAILY [facility] Last Admin: 11/01/16 10:12 Dose: Not Given Ondansetron HCl (Zofran Odt -) 4 mg SL Q12H PRN PRN Reason: NAUSEA AND/OR VOMITING Sevelamer Carbonate (Renvela -) 4,000 mg PO TIDCM [facility] Last Admin: 11/01/16 08:59 Dose: 4,000 mg Warfarin Sodium (Coumadin -) 8 mg PO DAILY@1800 [facility] Last Admin: 10/31/16 18:18 Dose: 8 mg A/P 76 year old woman with PMhx of ESRD on HD (MWF), Chronic Hypotension, DM, HLD who presented with LE pain. #ESRD on HD tolerating dialysis well will maintain on MWF schedule as an inpatient #LE pain/Spondyloisthesis/Sciatica pain control management as per Neurology and Neuro S for ReHab placement #Renal Osteodystrphy continue Renvela Trend Phos levels Alon Page DO
[2016-11-01 14:04] VITALS: PULSE 64
[2016-11-01 14:14] VITALS: BP 103/48
--- NOTE | 2016-11-01 15:06 | PN ---
Progress Note (short form) - Note Progress Note: NEUROSURGERY Some sciatica Undergoing PT Able to ambulate with minimal assistance AF, VSS PE: General- obese, unremarkable CN- non-focal; Motor- 5/5 B LE/UE; Sensation- decreased distal B LE vibration; DTR- hyporeflexic B L4-5 spondylolisthesis with mild-moderate stenosis and B L4-5 radiculopathy R > L DM with peripheral neuropathy Cont medical management- meds, start PT for modalities/truncal stabilization Will sign off Reconsult prn
--- NOTE | 2016-11-01 17:14 | DS ---
Physical Examination Vital Signs: Vital Signs Temperature 98.0 F 11/01/16 09:10 Pulse Rate 64 11/01/16 14:01 Respiratory Rate 18 11/01/16 13:10 Blood Pressure 103/48 11/01/16 14:00 O2 Sat by Pulse Oximetry (%) 95 11/01/16 10:00 Findings/Remarks: Ms. Freedman is a pleasant 76 yo female came in to the ER second time this week due to excruciating left back and lower extremity pain. She was discharged home after a dose of dilaudid and prescription of percocet, after which she followed with her PCP Dr David, who gave her gabapentin 100 mg po BID, which did not help her. After her last dialysis the pain got worse and this AM she could not tolerated the pain. She has had similar episode last year. She has no prior studies or imaging done. During the course of her hospitalization, MRI showed herniated disc in lumbar region. She was seen by Neurology, who suggested pain management and Physical therapy once discharged. She was also given decadron injection. She will also be receiving Dialysis during her stay at [facility]. Constitutional: Yes: Well Nourished, No Distress, Calm Cardiovascular: Yes: Pulse Irregular Respiratory: Yes: Regular Gastrointestinal: Yes: Normal Bowel Sounds Musculoskeletal: Yes: Back Pain Extremities: Yes: WNL Edema: No Peripheral Pulses WNL: Yes Peripheral Pulses: Left Doralis Pedis: 1+, Right Dorsalis Pedis: 1+ Neurological: Yes: Alert, Oriented Psychiatric: Yes: Alert, Oriented Labs: CBC, BMP 11/01/16 09:15 11/01/16 09:15 Discharge Summary Reason For Visit: SCIATICA OF LEFT SIDE Lumbar spin disc herniation Radiculopathy ESRD HTN DM2 Hyperlipidemia Anemia of CKD Procedures: Principal: MRI. Dialysis Hospital Course: During the course of her hospitalization, MRI showed herniated disc in lumbar region. She was seen by Neurology, who suggested pain management and Physical therapy once discharged. She was also given decadron injection. She was also seen by renal. She will also be receiving Dialysis during her stay at [facility]. Condition: Stable - Instructions Diet, Activity, Other Instructions: RENAL DIET Referrals: [facility] [place] [Outside] Kishore David MD [Primary Care Provider] - Disposition: [facility] - Home Medications Comprehensive Discharge Medication List: Ambulatory Orders Nitroglycerin Patch [Nitro-Dur Patch -] 0.2 mg TD PRN PRN 12/07/13 Warfarin Sodium [Coumadin] 10 mg PO HS 12/07/13 Psyllium [Metamucil (Sugar-Free) -] 5.85 gm PO Q2D packet 08/08/15 Pregabalin [Lyrica -] 50 mg PO BID capsule 08/10/15 Aspirin [ASA -] 81 mg PO DAILY #30 tab.chew 09/07/15 Atorvastatin Ca [Lipitor] 40 mg PO HS #120 tablet 09/07/15 Digoxin [Lanoxin -] 0.125 mg PO DAILY #30 tablet 09/07/15 Insulin (Levemir) [Levemir Vial] 10 units SQ BIDI #100 ml 09/07/15 Lactulose [Cephulac -] 10 gm PO Q2D #30 ml 09/07/15 Metoprolol Succinate [Toprol XL -] 25 mg PO DAILY #30 tab.sr.24h 09/07/15 Sennosides [Senna -] 2 tab PO HS PRN #120 tablet 09/07/15 Sevelamer Carbonate [Renvela -] 4,000 mg PO TID #100 tab 09/07/15 Collagenase Clostridium Hist. [Santyl] 1 applic TP DAILY #90 applic 11/22/15 Becaplermin [Regranex] 15 gm TP DAILY #15 gel..gram. 01/07/16 Ondansetron [Zofran Odt -] 4 mg SL BID PRN #10 od.tablet 10/23/16 Oxycodone HCl 10 mg PO QID PRN #10 tablet MDD 4 10/23/16 Oxycodone HCl [Roxicodone -] 10 mg PO Q6H PRN #10 tablet MDD 4 10/23/16 Digoxin [Lanoxin -] 0.125 mg PO DAILY tablet 11/01/16 Gabapentin 300 mg PO QID #120 capsule 11/01/16 Insulin Sliding Scale [Novolog Vial Sliding Scale -] 1 vial SQ ACHS units 11/01 Warfarin Na [Coumadin -] 8 mg PO DAILY@1800 tablet 11/01/16
[2016-11-02 00:07] LABS: HEP B SURFACE AB Reactive (.)
== END 2016-11-01 17:06 | DRG 551 ==
LOC: JER 06:01 → JERBED 09:40 → J5S 17:00
PROVIDERS: ADMIT Family Medicine; ATTEND Family Medicine
PROC: 5A1D60Z (ICD-10-PCS; principal; 2016-11-01)
DX: M51.26 Other intervertebral disc displacement, lumbar region (principal); N18.6 End stage renal disease; I13.11 Hypertensive heart and chronic kidney disease without heart failure, with stage 5 chronic kidney disease, or end stage renal disease; E11.22 Type 2 diabetes mellitus with diabetic chronic kidney disease; D63.1 Anemia in chronic kidney disease; E78.5 Hyperlipidemia, unspecified; M43.16 Spondylolisthesis, lumbar region; M48.06 Spinal stenosis, lumbar region; N25.0 Renal osteodystrophy; E11.65 Type 2 diabetes mellitus with hyperglycemia; E11.42 Type 2 diabetes mellitus with diabetic polyneuropathy; I48.91 Unspecified atrial fibrillation; I95.9 Hypotension, unspecified; Z79.4 Long term (current) use of insulin
CPT/HCPCS: 36415; 71020-TC; 72100-TC; 72148-TC; 80048; 80053; 80061; 83721; 83735; 84100; 85025; 85027; 85610; 85651; 85730; 86704; 86706; 86708; 86803; 87340; 93005; 93010; 97116-GP; 97161; 99284-25; J1644

== ENCOUNTER 2016-11-12 10:34 | Inpatient (IN) | payer OTHER, MEDICARE ==
--- NOTE | 2016-11-12 10:45 | PDOC ---
History of Present Illness - General Chief Complaint: Blood Pressure Problem Stated Complaint: HYPERTENSION History Source: Patient, Family Exam Limitations: No Limitations - History of Present Illness Initial Comments: 11/12/16 10:42 This is a 76 yo F with pmh of CVA, AFIB, HLD, COPD, Constipation, ESRD on HD, Hypotension (emma after HD), DM, Anemia, who presents to ER due to HTN urgency. This morning when patient abruptly stood out of bed, she felt very dizzy. [facility] staff measured her BP to be 240 systolic. EMS was called, patient was given a nitro patch, which decreased TYRON to 115 systolic and then to 90 systolic, which is her baseline. Patient denied chest pain, h/a, palpitations or any focal neuro findings. Per family, she has been coughing for several weeks and had a pulse ox of low 80's a few days ago, for whihc she was placed on NC O2. She is anuric and her last HD was on sun. Next one is due Mon. PSH: Apendectomy, AV Fistula/Graft, Cholecystectomy, Hernia Repair PCP Dr David 11/12/16 10:52 11/12/16 11:25 11/12/16 13:12 Past History - Travel Traveled outside of the country in the last 30 days: No Close contact w/someone who was outside of country & ill: No - Past Medical History Allergies/Adverse Reactions: Allergies Allergy/AdvReac Type Severity Reaction Status Date / Time Penicillins Allergy Swelling Verified 11/12/16 10:59 Home Medications: Ambulatory Orders Nitroglycerin Patch [Nitro-Dur Patch -] 0.2 mg TD PRN PRN 12/07/13 Warfarin Sodium [Coumadin] 10 mg PO HS 12/07/13 Psyllium [Metamucil (Sugar-Free) -] 5.85 gm PO Q2D packet 08/08/15 Pregabalin [Lyrica -] 50 mg PO BID capsule 08/10/15 Aspirin [ASA -] 81 mg PO DAILY #30 tab.chew 09/07/15 Atorvastatin Ca [Lipitor] 40 mg PO HS #120 tablet 09/07/15 Digoxin [Lanoxin -] 0.125 mg PO DAILY #30 tablet 09/07/15 Insulin (Levemir) [Levemir Vial] 10 units SQ BIDI #100 ml 09/07/15 Lactulose [Cephulac -] 10 gm PO Q2D #30 ml 09/07/15 Metoprolol Succinate [Toprol XL -] 25 mg PO DAILY #30 tab.sr.24h 09/07/15 Sennosides [Senna -] 2 tab PO HS PRN #120 tablet 09/07/15 Sevelamer Carbonate [Renvela -] 4,000 mg PO TID #100 tab 09/07/15 Collagenase Clostridium Hist. [Santyl] 1 applic TP DAILY #90 applic 11/22/15 Becaplermin [Regranex] 15 gm TP DAILY #15 gel..gram. 01/07/16 Ondansetron [Zofran Odt -] 4 mg SL BID PRN #10 od.tablet 10/23/16 Oxycodone HCl 10 mg PO QID PRN #10 tablet MDD 4 10/23/16 Oxycodone HCl [Roxicodone -] 10 mg PO Q6H PRN #10 tablet MDD 4 10/23/16 Digoxin [Lanoxin -] 0.125 mg PO DAILY tablet 11/01/16 Gabapentin 300 mg PO QID #120 capsule 11/01/16 Insulin Sliding Scale [Novolog Vial Sliding Scale -] 1 vial SQ ACHS units 11/01 Warfarin Na [Coumadin -] 8 mg PO DAILY@1800 tablet 11/01/16 Anemia: Yes Asthma: No Cancer: No Cardiac Disorders: Yes (ARRHYTHMIA, H/O A FIB,CAD) CVA: No COPD: No CHF: Yes Dementia: No Diabetes: Yes (1993) Dialysis: Yes (--) GI Disorders: No Disorders: Yes (RENAL DIALYSIS STARTED 2003) HTN: Yes (NO MEDS (GOES TOO LOW ON DIALYSIS)) Hypercholesterolemia: Yes Liver Disease: No Seizures: No Thyroid Disease: No - Surgical History Abdominal Surgery: Yes (UMBILICAL HERNIA REPAIR) Appendectomy: Yes (MANY YRS AGO) Cardiac Surgery: No Cholecystectomy: Yes (MANY YRS AGO) Lung Surgery: No Neurologic Surgery: No Orthopedic Surgery: No - Immunization History Immunization Up to Date: Yes - Psycho/Social/Smoking Cessation Hx Anxiety: No Suicidal Ideation: No Smoking History: Never smoked Have you smoked in the past 12 months: No Cigars Per Day: 0 Hx Alcohol Use: No Drug/Substance Use Hx: No Substance Use Type: None Hx Substance Use Treatment: No Review of Systems - Review of Systems Constitutional: No: Chills, Fever, Night Sweats HEENTM: No: Nose Congestion, Throat Pain Respiratory: No: Cough, Orthopnea, Shortness of Breath, Wheezing Cardiac (ROS): Yes: Lightheadedness. No: Chest Pain, Edema ABD/GI: No: Abdominal Distended, Diarrhea, Nausea, Rectal Bleeding, Vomiting, Abdominal cramping, Tarry Stools : Yes: Other (anuric ). No: Burning, Dysuria Musculoskeletal: No: Muscle Pain, Muscle Weakness Integumentary: No: Bruising, Pruritus, Rash Neurological: Yes: Weakness. No: Headache, Numbness, Paresthesia, Seizure, Tremors Psychiatric: No: Anxiety, Depression Endocrine: No: Change in Weight Hematologic/Lymphatic: No: Blood Clots, Easy Bleeding, Easy Bruising All Other Systems: Reviewed and Negative *Physical Exam - Vital Signs 11/12/16 11:39 11/12/16 13:18 - Physical Exam Comments: 11/12/16 13:12 GENERAL: NAD, AAOX3 HEENT: PERRLA EOMI, FUNDOSCOPIC EXAM NO PAPILLEDEMA, NO SCLERAL ICTERUS, NO INJECTION CV:RRR S1S2, + JVD PULM: MILD DIFFUSE WHEEZES GI: OBESE, SOFT, NONTENDER, NONDISTENDED, NORMOACTIVE BOWEL SOUNDS MUSCULOSKELETAL: LE OBESE, TRACE EDEMA NEURO:CN INTACT, SENSATION INTACT, STRENGTH 5/5 B/L IN EXTREMITIES 11/12/16 13:16 11/12/16 13:17 11/12/16 13:19 ED Treatment Course - LABORATORY CBC & Chemistry Diagram: 11/12/16 11:04 11/12/16 11:40 Medical Decision Making - Medical Decision Making 11/12/16 11:41 patient may have pna, goven history of cough and hypoxia in NH, wheezes on Physical, fever 100.3 rectal, HTN urgency. HTN, wheezes, cough and hypoxia may also be explained by vol overload. Order cxr, ekg, cbc x diff, cmp, mag, lactic, cardiac profile, trop, bnp, blood cultures. will give a dose of tylenol and take off nitro patch. 11/12/16 12:58 BNP >26480, may be evidence of fluid overload in setting of reported symptoms, PE HBG dropped from 11 to 9 in 2 w, INR supratherapeutic. GIB w/u to follow CXR indicating congestion and RLL infiltrate-aztreonam and vanco given for institution acquired PNA nebs, medrol administered in setting of COPD PCP contacted, patient to be admitted 11/12/16 13:24 11/12/16 13:24 *DC/Admit/Observation/Transfer Diagnosis at time of Disposition: Pneumonia Qualifiers: Qualified Code(s): J18.9 - Pneumonia, unspecified organism COPD (chronic obstructive pulmonary disease) Qualifiers: Qualified Code(s): J44.9 - Chronic obstructive pulmonary disease, unspecified Fluid overload Qualifiers: Qualified Code(s): E87.70 - Fluid overload, unspecified - Discharge Dispostion Admit: Yes - Referrals Referrals: Kishore David MD [Primary Care Provider] -
[2016-11-12 10:59] VITALS: BMI 37.4
[2016-11-12] MEDS ORDERED: ACETAMINOPHEN 1000 MG/100 ML VIAL (NON FORMULARY) IVPB ONE (11:27)
--- NOTE | 2016-11-12 11:30 | PDOC ---
Attending Attestation - Resident Resident Name: Katey Orta - ED Attending Attestation I have performed the following: I have examined & evaluated the patient, The case was reviewed & discussed with the resident, I agree w/resident's findings & plan, Exceptions are as noted - HPI HPI: 11/12/16 11:26 76 year old female with past medical history of ESRD M/W/F, RUE fistula, last dialysis 2 days ago (on Sunday), DM, CVA, HLD, HTN, afib, CAD, COPD brought in from [facility] for elevated BP. For ~1 wk, the patient has been having chest congestion andn cough. Patient has positive sick contacts with the [facility] as well as her family members who visit her often. Reports that she is unable to expectorate given her weakness. She feels somewhat short of breath but denies chest pain. The patient is mentating but appears drowsy. This is something new according to the patient's family. She had last dialysis 2 days ago. - Physicial Exam PE: 11/12/16 12:40 GENERAL: Awake, alert, and fully oriented, in no acute distress. HEAD: No signs of trauma EYES: PERRLA, EOMI, sclera anicteric, conjunctiva clear ENT: Auricles normal inspection, hearing grossly normal, nares patent, oropharynx clear without exudates. NECK: Normal ROM, supple, no lymphadenopathy, JVD, or masses LUNGS: Diffuse expiratory wheezing bilaterally. Diminished breath sounds at the bases. HEART: Regular rate and rhythm, normal S1 and S2, no murmurs, rubs or gallops ABDOMEN: Soft, nontender, normoactive bowel sounds. No guarding, no rebound. No masses EXTREMITIES: Normal range of motion, no edema. No clubbing or cyanosis. No cords, erythema, or tenderness NEUROLOGICAL: Cranial nerves II through XII grossly intact. Normal speech, normal gait SKIN: Warm, Dry, normal turgor, no rashes or lesions noted. - Medical Decision Making 11/12/16 12:41 Differential includes COPD exacerbation versus pulmonary edema versus pneumonia. Patient was noted to have low O2 saturations at the nursing facility at 85% on 2 L nasal cannula. With a temperature 100.3 degrees, we'll treat as pneumonia given chest x-ray demonstrates no effusions potentially right lower lobe pneumonia. Patient is likely with fluid overload given dialysis 2 days ago. Elevated BNP. Patient's INR is also noted to be elevated at 5.35 and a hemoglobin 2. lower than a week and a half ago. We'll obtain a stool guaiac. Nebulizers and steroids. Admit to the hospital for further evaluation. 11/12/16 12:[address] head given elevated INR and lethargy. Case discussed with Dr. Hamm who accepts the patient to med/surg admission. Case discussed in detail with admitting physician including history, physical exam and ancillary studies. Admitting physician has assumed care for the patient, will follow all pending diagnostics and will complete the evaluation and treatment. Heart Score/ECG Review #1 ECG reviewed & interpreted by me at: 11:15 11/12/16 12:44 atrial fibrillation, left axis deviation, no std/ana, QTC 399 msec
[2016-11-12] MEDS ORDERED: methylPREDNISolone NA SUCC 125 MG/2 ML VIAL IVPB ONE (11:32)
[2016-11-12 11:42] LABS: MCH 28.7 pg (25.7-33.7); MCHC 31.2 g/dl (32.0-36.0); MEAN CELL VOLUME 91.8 fl (80-96); MEAN PLT VOLUME 9.4 fl (7.5-11.1); PLATELET COUNT 172 K/MM3 (134-434); RDW 16.7 % (11.6-15.6); WHITE BLOOD COUNT 12.5 K/mm3 (4.0-10.0)
[2016-11-12] MEDS: ALBUTEROL SO4 2.5/IPRATROPIUM 0.5 INH SOL 3 ML VIAL.NEB. NEB SCH (12:01)
[2016-11-12] MEDS ORDERED: ACETAMINOPHEN INJECTION 100 ML IVPB ONE ×2 (12:02→22:42)
[2016-11-12] MEDS ORDERED: methylPREDNISolone NA SUCC 125 MG/2 ML VIAL ONE (12:02)
[2016-11-12] MEDS ORDERED: ALBUTEROL SO4 2.5/IPRATROPIUM 0.5 INH SOL 3 ML VIAL.NEB. NEB ONE (12:02)
[2016-11-12 12:07] LABS: ALBUMIN 2.4 g/dl (3.4-5.0); BILIRUBIN,TOTAL 0.5 mg/dL (0.2-1.0); CALCIUM 8.7 mg/dL (8.5-10.1); TOT PROT 5.9 g/dl (6.4-8.2)
[2016-11-12 12:07] LABS: PROTHROMBIN TIME (PATIENT) 60.9 SEC (9.98-11.88)
[2016-11-12 12:13] LABS: INR 5.35 (0.82-1.09)
[2016-11-12 12:19] LABS: COCKROFT - GAULT 11.1095; CREATININE 8.3 mg/dL (0.55-1.02); DIGOXIN LEVEL 2.4468 ng/ml (0.8-2.0); TROPONIN I 0.03 ng/ml (0.00-0.05)
[2016-11-12] MEDS ORDERED: AZTREONAM 2 GM in DEXTROSE 5%-WATER - 50 ML IVPB ONE (12:28)
[2016-11-12] MEDS ORDERED: VANCOMYCIN 1 MG in DEXTROSE 5%-WATER - 250 ML IVPB ONE (12:29)
[2016-11-12 12:30] LABS: MAGNESIUM 2.1 mg/dL (1.8-2.4)
[2016-11-12] MEDS ORDERED: ALBUTEROL SO4 0.083% IH SOL 2.5 MG/3 ML VIAL.NEB. NEB ONE (12:30)
--- NOTE | 2016-11-12 12:52 | PDOC ---
*Physical Exam - Vital Signs Last Vital Signs Temp Pulse Resp BP Pulse Ox 100.3 F H 95 H 20 98/71 96 11/12/16 10:57 11/12/16 10:57 11/12/16 10:57 11/12/16 10:57 11/12/16 10:57 ED Treatment Course - LABORATORY CBC & Chemistry Diagram: 11/12/16 11:04 11/12/16 11:40 - ADDITIONAL ORDERS Additional order review: Laboratory Results 11/12/16 11/12/16 11/12/16 11:40 11:04 11:04 INR Sodium 132 L Potassium 5.5 H Chloride 95 L Carbon Dioxide 22 Anion Gap 15 BUN 50 H D Creatinine 8.3 H* D Creat Clearance w eGFR 4.71 Random Glucose 146 H D Lactic Acid 1.6 Calcium 8.7 Magnesium 2.1 Total Bilirubin 0.5 D AST 30 D ALT 20 Alkaline Phosphatase 72 Creatine Kinase 369 H D CK-MB (CK-2) 3.567 Troponin I 0.03 B-Natriuretic Peptide Total Protein 5.9 L Albumin 2.4 L D Digoxin 2.4468 H Cancelled 11/12/16 11/12/16 11:04 11:04 INR 5.35 H* D Sodium Potassium Chloride Carbon Dioxide Anion Gap BUN Creatinine Creat Clearance w eGFR Random Glucose Lactic Acid Calcium Magnesium Total Bilirubin AST ALT Alkaline Phosphatase Creatine Kinase CK-MB (CK-2) Troponin I B-Natriuretic Peptide 26586.68 H Total Protein Albumin Digoxin 11/12/16 11:04 RBC 3.22 L MCV 91.8 MCHC 31.2 L RDW 16.7 H MPV 9.4 Neutrophils % Y Lymphocytes % Y - RADIOLOGY Radiology Studies Ordered: Category Date Time Status HEAD CT WITHOUT CONTRAST [CT] Stat CT Scan 11/12/16 12:47 Ordered CXRPORT [CHEST X-RAY PORTABLE*] [RAD] Stat Radiology 11/12/16 11:12 Completed - Medications Given in the ED: ED Medications Discontinued Medications Generic Name Dose Route Start Last Admin Trade Name Freq PRN Reason Stop Dose Admin Acetaminophen 1,000 mg 11/12/16 11:27 11/12/16 12:00 Ofirmev Injection - IVPB 11/12/16 11:28 1,000 mg ONCE ONE Administration Methylprednisolone Sodium Succinate 125 mg 11/12/16 11:32 11/12/16 12:01 Solu-Medrol - IVPB 11/12/16 11:33 125 mg ONCE ONE Administration *DC/Admit/Observation/Transfer Diagnosis at time of Disposition: Pneumonia Qualifiers: Pneumonia type: due to unspecified organism Laterality: unspecified laterality Lung location: unspecified part of lung Qualified Code(s): J18.9 - Pneumonia, unspecified organism Chronic obstructive pulmonary disease Qualifiers: COPD type: unspecified COPD Qualified Code(s): J44.9 - Chronic obstructive pulmonary disease, unspecified Hypervolemia Qualifiers: Hypervolemia type: unspecified Qualified Code(s): E87.70 - Fluid overload, unspecified - Discharge Dispostion Condition at time of disposition: Stable Admit: Yes
[2016-11-12 13:19] LABS: PLATELET ESTIMATE ADEQUATE (NORMAL)
--- NOTE | 2016-11-12 15:24 | EKG ---
Test Reason : Blood Pressure : / mmHG Vent. Rate : 071 BPM Atrial Rate : 078 BPM P-R Int : 000 ms QRS Dur : 108 ms QT Int : 368 ms P-R-T Axes : 000 -42 152 degrees QTc Int : 399 ms ATRIAL FIBRILLATION LEFT AXIS DEVIATION LOW VOLTAGE QRS NON-SPECIFIC INTRA-VENTRICULAR CONDUCTION BLOCK ABNORMAL ECG WHEN COMPARED WITH ECG OF 27-OCT-2016 08:18, INVERTED T WAVES HAVE REPLACED NONSPECIFIC T WAVE ABNORMALITY IN LATERAL LEADS QT HAS SHORTENED CLINICAL CORRELATION IS RECOMMENDED Confirmed by BOB MENSAH MD ([id number]) on 11/12/2016 3:24:00 PM Referred By: Confirmed By:BOB MENSAH MD
[2016-11-12] MEDS ORDERED: VANCOMYCIN 1 GRAM (PRE-DOCKED) 250 ML IVPB ONE (17:08)
[2016-11-12] MEDS ORDERED: ONDANSETRON 4 MG/2 ML VIAL IVPB PRN (17:30)
[2016-11-12] MEDS ORDERED: DEXTROSE 5%-NORMAL SALINE 1,000 ML IV SCH (17:30)
[2016-11-12] MEDS ORDERED: morphine CARPU-JECT 2 MG/1 ML DISP.SYRIN IVPUSH PRN (17:30)
[2016-11-12] MEDS ORDERED: ACETAMINOPHEN 1000 MG/100 ML VIAL (NON FORMULARY) IVPB PRN (17:31)
[2016-11-12] MEDS ORDERED: ACETAMINOPHEN 650 MG SUPP.RECT PR PRN (17:31)
--- NOTE | 2016-11-13 00:26 | CONSULT ---
Consult Consult Specialty:: endocrine Referred by:: dr.rabadi roberts Reason for Consultation:: iddm uncontrolled - History of Present Illness Chief Complaint: cough and difficulty breathing History of Present Illness: 6 year old female with past medical history of ESRD M/W/F, RUE fistula, last dialysis 2 days ago (on Sunday), DM, CVA, HLD, HTN, afib, CAD, COPD brought in from [facility] for elevated BP. For ~1 wk, the patient has been having chest congestion andn cough. Patient has positive sick contacts with the skilled nursing as well as her family members who visit her often. Reports that she is unable to expectorate given her weakness. She feels somewhat short of breath but denies chest pain. The patient is mentating but appears drowsy. 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 No: CAD, CHF Gastrointestinal: Yes: Constipation Renal/: Yes: Renal Failure, Hemodialysis, Other (renal cysts see HPI) Endocrine: Yes: Diabetes Mellitus Additional Medical History: Right superficial breast mass which she noted for the last 2 weeks and has enlarged in size. Minimal drainage has been noted. - Past Surgical History Past Surgical History: Yes: Appendectomy, AV Fistula/Graft, Cholecystectomy, Hernia Repair - Alcohol/Substance Use Hx Alcohol Use: No - Smoking History Smoking history: Never smoked Have you smoked in the past 12 months: No - Social History ADL: Independent History of Recent Travel: No Home Medications - Allergies Allergies/Adverse Reactions: Allergies Allergy/AdvReac Type Severity Reaction Status Date / Time Penicillins Allergy Swelling Verified 11/12/16 10:59 - Home Medications Home Medications: Ambulatory Orders Aa/Hydrolyzed Collagen, Whey [Lps 15-30 Liquid] 30 ml PO BID 11/12/16 Aa/Hydrolyzed Collagen, Whey [Lps Neutral Flavor Liquid] 30 ml PO BID 11/12/16 Acetaminophen [Tylenol] 325 mg PO Q4H 11/12/16 Aspirin [ASA -] 81 mg PO DAILY 11/12/16 Atorvastatin Ca [Lipitor] 40 mg PO HS 11/12/16 Digoxin [Lanoxin -] 0.125 mg PO DAILY 11/12/16 Docusate Sodium [Colace -] 100 mg PO BID 11/12/16 Guaifenesin Dm [Robitussin Dm -] 10 ml PO Q4H PRN 11/12/16 Insulin Detemir [Levemir Flextouch] 15 unit SQ BID 11/12/16 Insulin Lispro [Humalog] 0 units SCJ ACHS 11/12/16 Lactulose (Oral Use) [Cephulac -] 20 gm PO TID 11/12/16 Metoprolol Succinate [Toprol Xl -] 25 mg PO DAILY 11/12/16 Nitroglycerin Patch [Nitro-Dur] 0.2 mg TD DAILY PRN 11/12/16 Ondansetron [Zofran *Odt*] 4 mg SL DAILY 11/12/16 Oxycodone HCl [Oxycontin] 10 mg PO Q6H 11/12/16 Psyllium Husk (with Sugar) [Metamucil Packet] 3.4 gm PO Q48H 11/12/16 Sennosides [Senna] 8.6 mg PO HS 11/12/16 Sevelamer Carbonate [Renvela] 2,400 mg PO TID 11/12/16 Silver Sulfadiazine 1% Top Cr [Silvadene -] 1 applic TP TID 11/12/16 Sodium Chloride [Saline Mist] 2 drop NS DAILY 11/12/16 Warfarin Sodium [Coumadin] 8 mg PO DAILY 11/12/16 Family Disease History - Family Disease History Family Disease History: Diabetes: Sister (), CA: Father (prostate Ca; ) Review of Systems - Review of Systems Constitutional: reports: Loss of Appetite, Weakness Eyes: reports: Blurred Vision HENT: reports: No Symptoms Neck: reports: No Symptoms Cardiovascular: reports: Shortness of Breath Respiratory: reports: Exercise Intolerance, Orthopnea, SOB on Exertion Gastrointestinal: reports: Bloating Genitourinary: reports: No Symptoms Breasts: reports: No Symptoms Reported Musculoskeletal: reports: Decreased ROM, Extremity Pain, Joint Swelling, Muscle Pain, Muscle Cramps, Muscle Weakness Integumentary: reports: No Symptoms Neurological: reports: Numbness, Unsteady Gait, Weakness Endocrine: reports: No Symptoms Hematology/Lymphatic: reports: No Symptoms Psychiatric: reports: No Symptoms Physical Exam Vital Signs: Vital Signs Temperature 101.6 F H 11/12/16 22:39 Pulse Rate 77 11/12/16 22:39 Respiratory Rate 20 11/12/16 22:39 Blood Pressure 108/41 11/12/16 22:39 O2 Sat by Pulse Oximetry (%) 95 11/12/16 19:23 Constitutional: Yes: Anxious Eyes: Yes: EOM Intact HENT: Yes: Normocephalic Neck: Yes: Trachea Midline Cardiovascular: Yes: Tachycardia, Pulse Irregular Respiratory: Yes: Cough, Rhonchi, SOB, SOB on Exertion, Tachypnea, Wheezes Gastrointestinal: Yes: Abdomen, Obese ...Rectal Exam: Yes: Deferred Renal/: Yes: WNL Breast(s): Yes: WNL Musculoskeletal: Yes: Muscle Pain, Muscle Weakness Extremities: Yes: WNL Edema: No Neurological: Yes: Alert, Oriented ...Motor Strength: WNL Psychiatric: Yes: Alert Problem List - Problems (1) Pneumonia Code(s): J18.9 - PNEUMONIA, UNSPECIFIED ORGANISM Qualifiers: Pneumonia type: due to unspecified organism Laterality: unspecified laterality Lung location: unspecified part of lung Qualified Code(s) : J18.9 - Pneumonia, unspecified organism (2) ASHD (arteriosclerotic heart disease) Code(s): I25.10 - ATHSCL HEART DISEASE OF [place] CORONARY ARTERY W/O ANG PCTRS (3) Atrial fibrillation Code(s): I48.91 - UNSPECIFIED ATRIAL FIBRILLATION Assessment/Plan Current Active Problems COPD (chronic obstructive pulmonary disease) (Acute) Fluid overload (Acute) Pneumonia (Acute) diabetes mellitus esrd htn hyperlipidemia Abnormal Lab Results 11/12/16 11/12/16 11/12/16 11:04 11:04 11:04 WBC 12.5 H RBC 3.22 L Hgb 9.2 L D Hct 29.5 L D MCHC 31.2 L RDW 16.7 H Lymphocytes % 7.0 L D Monocytes % 15.0 H D INR 5.35 H* D Sodium Potassium Chloride BUN Creatinine Random Glucose Creatine Kinase B-Natriuretic Peptide 65089.68 H Total Protein Albumin Digoxin 11/12/16 11:40 WBC RBC Hgb Hct MCHC RDW Lymphocytes % Monocytes % INR Sodium 132 L Potassium 5.5 H Chloride 95 L BUN 50 H D Creatinine 8.3 H* D Random Glucose 146 H D Creatine Kinase 369 H D B-Natriuretic Peptide Total Protein 5.9 L Albumin 2.4 L D Digoxin 2.4468 H Laboratory Results - last 24 hr 11/12/16 11/12/16 11/12/16 11:04 11:04 11:04 WBC 12.5 H RBC 3.22 L Hgb 9.2 L D Hct 29.5 L D MCV 91.8 MCHC 31.2 L RDW 16.7 H Plt Count 172 MPV 9.4 Neutrophils % 78.0 Lymphocytes % 7.0 L D Monocytes % 15.0 H D Platelet Estimate Adequate INR 5.35 H* D Sodium Potassium Chloride Carbon Dioxide Anion Gap BUN Creatinine Creat Clearance w eGFR Random Glucose Lactic Acid Calcium Magnesium Total Bilirubin AST ALT Alkaline Phosphatase Creatine Kinase CK-MB (CK-2) Troponin I B-Natriuretic Peptide 51111.68 H Total Protein Albumin Digoxin 11/12/16 11/12/16 11/12/16 11:04 11:04 11:40 WBC RBC Hgb Hct MCV MCHC RDW Plt Count MPV Neutrophils % Lymphocytes % Monocytes % Platelet Estimate INR Sodium 132 L Potassium 5.5 H Chloride 95 L Carbon Dioxide 22 Anion Gap 15 BUN 50 H D Creatinine 8.3 H* D Creat Clearance w eGFR 4.71 Random Glucose 146 H D Lactic Acid 1.6 Calcium 8.7 Magnesium 2.1 Total Bilirubin 0.5 D AST 30 D ALT 20 Alkaline Phosphatase 72 Creatine Kinase 369 H D CK-MB (CK-2) 3.567 Troponin I 0.03 B-Natriuretic Peptide Total Protein 5.9 L Albumin 2.4 L D Digoxin Cancelled 2.4468 H plan: bgm qid novolog scale levemir am 40 units levemir hs 15 units ck hb a1c iv antibiotics pneumonia pathogens
[2016-11-13] MEDS: INSULIN DETEMIR 100 UNITS/ML MDV SQ SCH ×2 (06:10→22:46)
[2016-11-13 06:26] LABS: MCH 29.2 pg (25.7-33.7); MCHC 32.1 g/dl (32.0-36.0); MEAN CELL VOLUME 91.2 fl (80-96); MEAN PLT VOLUME 9.8 fl (7.5-11.1); PLATELET COUNT 154 K/MM3 (134-434); RDW 16.4 % (11.6-15.6); WHITE BLOOD COUNT 10.7 K/mm3 (4.0-10.0)
[2016-11-13 07:01] LABS: ALBUMIN 2.2 g/dl (3.4-5.0); BILIRUBIN,TOTAL 0.3 mg/dL (0.2-1.0); TOT PROT 5.5 g/dl (6.4-8.2)
[2016-11-13] MEDS: INSULIN SLIDING SCALE (NOVOLOG) 1 VIAL SQ SCH ×4 (07:18→22:46)
[2016-11-13 07:22] LABS: CREATININE 9.2 mg/dL (0.55-1.02)
[2016-11-13] MEDS ORDERED: INSULIN REGULAR HUMAN 100 UNITS/ML *VIAL IVPUSH ONE (08:15)
[2016-11-13] MEDS ORDERED: FUROSEMIDE 40 MG/4 ML INJECTABLE VIAL IVPB ONE (08:15)
[2016-11-13] MEDS ORDERED: DEXTROSE 50%-WATER - 25 GM/50 ML VIAL IVPUSH ONE (08:15)
--- NOTE | 2016-11-13 09:18 | HP ---
Admitting History and Physical - Admission History of Present Illness: 76 yo F with pmh of CVA, AFIB, HLD, COPD, Constipation, ESRD on HD, Hypotension (emma after HD), DM, Anemia, who presents to ER due to HTN urgency. Yesterday when patient abruptly stood out of bed, she felt very dizzy. NH staff measured her BP to be 240 systolic. EMS was called, patient was given a nitro patch, which decreased TYRON to 115 systolic and then to 90 systolic, which is her baseline. Patient denied chest pain, h/a, palpitations or any focal neuro findings. Per family, she has been coughing for several weeks and had a pulse ox of low 80's a few days ago, for which she was placed on NC O2. She is anuric and her last HD was on sun. Next one is due Mon. 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 No: CAD, CHF Gastrointestinal: Yes: Constipation Renal/: Yes: Renal Failure, Hemodialysis, Other (renal cysts see HPI) Heme/Onc: Yes: Anemia Endocrine: Yes: Diabetes Mellitus - Past Surgical History Past Surgical History: Yes: Appendectomy, AV Fistula/Graft, Cholecystectomy, Hernia Repair - Smoking History Smoking history: Never smoked Have you smoked in the past 12 months: No - Alcohol/Substance Use Hx Alcohol Use: No - Social History ADL: Independent History of Recent Travel: No Home Medications - Allergies Allergies/Adverse Reactions: Allergies Allergy/AdvReac Type Severity Reaction Status Date / Time Penicillins Allergy Swelling Verified 11/12/16 10:59 - Home Medications Home Medications: Ambulatory Orders Aa/Hydrolyzed Collagen, Whey [Lps 15-30 Liquid] 30 ml PO BID 11/12/16 Aa/Hydrolyzed Collagen, Whey [Lps Neutral Flavor Liquid] 30 ml PO BID 11/12/16 Acetaminophen [Tylenol] 325 mg PO Q4H 11/12/16 Aspirin [ASA -] 81 mg PO DAILY 11/12/16 Atorvastatin Ca [Lipitor] 40 mg PO HS 11/12/16 Digoxin [Lanoxin -] 0.125 mg PO DAILY 11/12/16 Docusate Sodium [Colace -] 100 mg PO BID 11/12/16 Guaifenesin Dm [Robitussin Dm -] 10 ml PO Q4H PRN 11/12/16 Insulin Detemir [Levemir Flextouch] 15 unit SQ BID 11/12/16 Insulin Lispro [Humalog] 0 units SCJ ACHS 11/12/16 Lactulose (Oral Use) [Cephulac -] 20 gm PO TID 11/12/16 Metoprolol Succinate [Toprol Xl -] 25 mg PO DAILY 11/12/16 Nitroglycerin Patch [Nitro-Dur] 0.2 mg TD DAILY PRN 11/12/16 Ondansetron [Zofran *Odt*] 4 mg SL DAILY 11/12/16 Oxycodone HCl [Oxycontin] 10 mg PO Q6H 11/12/16 Psyllium Husk (with Sugar) [Metamucil Packet] 3.4 gm PO Q48H 11/12/16 Sennosides [Senna] 8.6 mg PO HS 11/12/16 Sevelamer Carbonate [Renvela] 2,400 mg PO TID 11/12/16 Silver Sulfadiazine 1% Top Cr [Silvadene -] 1 applic TP TID 11/12/16 Sodium Chloride [Saline Mist] 2 drop NS DAILY 11/12/16 Warfarin Sodium [Coumadin] 8 mg PO DAILY 11/12/16 Family Disease History - Family Disease History Family Disease History: Diabetes: Sister (), CA: Father (prostate Ca; ) Review of Systems - Review of Systems Cardiovascular: denies: Chest Pain Respiratory: reports: Cough, SOB on Exertion Gastrointestinal: denies: Abdominal Pain Neurological: reports: Dizziness Physical Examination Vital Signs: Vital Signs Temperature 98.1 F 11/13/16 05:00 Pulse Rate 70 11/13/16 07:05 Respiratory Rate 18 11/13/16 07:05 Blood Pressure 102/63 11/13/16 07:05 O2 Sat by Pulse Oximetry (%) 96 11/13/16 07:05 Cardiovascular: Yes: S1, S2 Respiratory: Yes: On Nasal O2, Rhonchi Gastrointestinal: Yes: Normal Bowel Sounds, Soft Edema: No Neurological: Yes: Alert, Oriented, Weakness Labs: CBC, BMP 11/13/16 06:00 11/13/16 06:35 Imaging - Results Chest X-ray: Report Reviewed (chf) Cat Scan: Report Reviewed Problem List - Problems (1) COPD (chronic obstructive pulmonary disease) Assessment/Plan: NEBS OXYGEN PULMONARY Code(s): J44.9 - CHRONIC OBSTRUCTIVE PULMONARY DISEASE, UNSPECIFIED Qualifiers : COPD type: unspecified COPD Qualified Code(s): J44.9 - Chronic obstructive pulmonary disease, unspecified (2) Anemia Assessment/Plan: TRANSFUSE PRBC FOLLOW LABS Code(s): D64.9 - ANEMIA, UNSPECIFIED Qualifiers: Anemia type: other cause Other causes of anemia: chronic disease, kidney Qualified Code(s): N18.9 - Chronic kidney disease, unspecified; D63.1 - Anemia in chronic kidney disease (3) Atrial fibrillation Assessment/Plan: INR HIGH HOLD COUMADIN MONITOR INR Code(s): I48.91 - UNSPECIFIED ATRIAL FIBRILLATION (4) Diabetes Assessment/Plan: BGM ENDO ON CASE Code(s): E11.9 - TYPE 2 DIABETES MELLITUS WITHOUT COMPLICATIONS (5) ESRD (end stage renal disease) Assessment/Plan: DIALYSIS TODAY MONITOR Code(s): N18.6 - END STAGE RENAL DISEASE (6) HTN (hypertension) Assessment/Plan: MONITOR BP ON MEDS Vital Signs Period Temp Pulse Resp BP Sys/Prince Pulse Ox Last 24 Hr 98.1 F-101.6 F 65-95 18-20 94-118/41-71 94-96 Code(s): I10 - ESSENTIAL (PRIMARY) HYPERTENSION (7) Fever Assessment/Plan: CULTURES IV ABX ID CONSULT Code(s): R50.9 - FEVER, UNSPECIFIED
[2016-11-13] MEDS ORDERED: FUROSEMIDE 40 MG/4 ML INJECTABLE VIAL ONE (09:32)
[2016-11-13] MEDS ORDERED: INSULIN (NOVOLOG) ASPART 100 UNITS/ML 10ML VIAL ONE ×2 (09:37→22:18)
[2016-11-13] MEDS ORDERED: DEXTROSE 50%-WATER 50 ML DISP.SYRIN ONE (09:38)
--- NOTE | 2016-11-13 10:30 | PN ---
Progress Note, Physician Chief Complaint: ID Fever couph sputum production - Current Medication List Current Medications: Active Medications Acetaminophen (Ofirmev Injection -) 1,000 mg IVPB Q6H PRN PRN Reason: FEVER OR PAIN Stop: 11/13/16 11:32 Last Admin: 11/12/16 22:40 Dose: 1,000 mg Acetaminophen (Tylenol Suppository -) 650 mg NC Q6H PRN PRN Reason: FEVER OR PAIN Albuterol/Ipratropium (Duoneb -) 1 amp NEB QIDR [facility] Last Admin: 11/12/16 12:01 Dose: 1 amp Dextrose/Sodium Chloride (D5-Ns -) 1,000 mls @ 75 mls/hr IV ASDIR [facility] Last Admin: 11/12/16 17:45 Dose: 75 mls/hr Insulin Aspart (Novolog Vial Sliding Scale -) 1 vial SQ ACHS ALDO PRN Reason: Protocol Last Admin: 11/13/16 07:18 Dose: Not Given Insulin Detemir (Levemir Vial) 40 units SQ AM [facility] Last Admin: 11/13/16 06:10 Dose: Not Given Insulin Detemir (Levemir Vial) 15 units SQ HS [facility] Morphine Sulfate (Morphine Injection -) 2 mg IVPUSH Q6H PRN PRN Reason: PAIN Ondansetron HCl (Zofran Injection) 4 mg IVPB Q6H PRN PRN Reason: NAUSEA - Objective Vital Signs: Vital Signs Temperature 99.7 F H 11/13/16 09:00 Pulse Rate 70 11/13/16 09:00 Respiratory Rate 20 11/13/16 09:00 Blood Pressure 118/50 11/13/16 09:00 O2 Sat by Pulse Oximetry (%) 96 11/13/16 07:05 Constitutional: Yes: Mild Distress Eyes: Yes: Other (Conjuctival injection) Neck: Yes: WNL, Supple Respiratory: Yes: WNL, Regular, CTA Bilaterally, Diminished Gastrointestinal: Yes: Soft. No: Tenderness Extremities: Yes: Other (AVG) Edema: No Labs: CBC, BMP 11/13/16 06:00 11/13/16 06:35 INR, PTT INR 5.35 (0.82-1.09) H* D 11/12/16 11:04 Problem List - Problems (1) Fever Code(s): R50.9 - FEVER, UNSPECIFIED (2) Pneumonia Code(s): J18.9 - PNEUMONIA, UNSPECIFIED ORGANISM Qualifiers: Pneumonia type: due to unspecified organism Laterality: unspecified laterality Lung location: unspecified part of lung Qualified Code(s) : J18.9 - Pneumonia, unspecified organism (3) End stage chronic kidney disease Code(s): N18.6 - END STAGE RENAL DISEASE Z99.2 - DEPENDENCE ON RENAL DIALYSIS Assessment/Plan Microbiology Laboratory Tests 11/12/16 11:04 WBC 12.5 H RBC 3.22 L Plt Count 172 Assessment and Plan ESRD with fever and pneumonia Vancomycin based on body weight Aztreonam 1gr bid Azithromycin 500mg daily LGA Sputum c/s
[2016-11-13] MEDS ORDERED: VANCOMYCIN 750 MG in DEXTROSE 5%-WATER - 250 ML IVPB ONE (11:00)
[2016-11-13 11:29] LABS: PROTHROMBIN TIME (PATIENT) 91.9 SEC (9.98-11.88)
--- NOTE | 2016-11-13 11:31 | CONSULT ---
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 No: CAD, CHF Gastrointestinal: Yes: Constipation Renal/: Yes: Renal Failure, Hemodialysis, Other (renal cysts see HPI) Endocrine: Yes: Diabetes Mellitus Additional Medical History: Right superficial breast mass which she noted for the last 2 weeks and has enlarged in size. Minimal drainage has been noted. - Past Surgical History Past Surgical History: Yes: Appendectomy, AV Fistula/Graft, Cholecystectomy, Hernia Repair - Alcohol/Substance Use Hx Alcohol Use: No - Smoking History Smoking history: Never smoked Have you smoked in the past 12 months: No - Social History ADL: Independent History of Recent Travel: No Home Medications - Allergies Allergies/Adverse Reactions: Allergies Allergy/AdvReac Type Severity Reaction Status Date / Time Penicillins Allergy Swelling Verified 11/12/16 10:59 - Home Medications Home Medications: Ambulatory Orders Aa/Hydrolyzed Collagen, Whey [Lps 15-30 Liquid] 30 ml PO BID 11/12/16 Aa/Hydrolyzed Collagen, Whey [Lps Neutral Flavor Liquid] 30 ml PO BID 11/12/16 Acetaminophen [Tylenol] 325 mg PO Q4H 11/12/16 Aspirin [ASA -] 81 mg PO DAILY 11/12/16 Atorvastatin Ca [Lipitor] 40 mg PO HS 11/12/16 Digoxin [Lanoxin -] 0.125 mg PO DAILY 11/12/16 Docusate Sodium [Colace -] 100 mg PO BID 11/12/16 Guaifenesin Dm [Robitussin Dm -] 10 ml PO Q4H PRN 11/12/16 Insulin Detemir [Levemir Flextouch] 15 unit SQ BID 11/12/16 Insulin Lispro [Humalog] 0 units SCJ ACHS 11/12/16 Lactulose (Oral Use) [Cephulac -] 20 gm PO TID 11/12/16 Metoprolol Succinate [Toprol Xl -] 25 mg PO DAILY 11/12/16 Nitroglycerin Patch [Nitro-Dur] 0.2 mg TD DAILY PRN 11/12/16 Ondansetron [Zofran *Odt*] 4 mg SL DAILY 11/12/16 Oxycodone HCl [Oxycontin] 10 mg PO Q6H 11/12/16 Psyllium Husk (with Sugar) [Metamucil Packet] 3.4 gm PO Q48H 11/12/16 Sennosides [Senna] 8.6 mg PO HS 11/12/16 Sevelamer Carbonate [Renvela] 2,400 mg PO TID 11/12/16 Silver Sulfadiazine 1% Top Cr [Silvadene -] 1 applic TP TID 11/12/16 Sodium Chloride [Saline Mist] 2 drop NS DAILY 11/12/16 Warfarin Sodium [Coumadin] 8 mg PO DAILY 11/12/16 Family Disease History - Family Disease History Family History: Unable to Obtain Family Disease History: Diabetes: Sister (), CA: Father (prostate Ca; ) Review of Systems Unable to obtain ROS, reason: Poor historian Physical Exam Vital Signs: Vital Signs Temperature 99.7 F H 11/13/16 09:00 Pulse Rate 70 11/13/16 09:00 Respiratory Rate 20 11/13/16 09:00 Blood Pressure 118/50 11/13/16 09:00 O2 Sat by Pulse Oximetry (%) 96 11/13/16 07:05 Constitutional: Yes: Calm Neck: Yes: Supple Cardiovascular: Yes: WNL Respiratory: Yes: Diminished Gastrointestinal: Yes: Soft. No: Tenderness, Tenderness, Rebound Neurological: Yes: Alert Labs: CBC, BMP 11/13/16 06:00 11/13/16 06:35 Problem List - Problems (1) COPD (chronic obstructive pulmonary disease) Code(s): J44.9 - CHRONIC OBSTRUCTIVE PULMONARY DISEASE, UNSPECIFIED Qualifiers : COPD type: unspecified COPD Qualified Code(s): J44.9 - Chronic obstructive pulmonary disease, unspecified (2) Fever Code(s): R50.9 - FEVER, UNSPECIFIED Qualifiers: Fever type: unspecified Qualified Code(s): R50.9 - Fever, unspecified (3) Colitis Code(s): K52.9 - NONINFECTIVE GASTROENTERITIS AND COLITIS, UNSPECIFIED Assessment/Plan 76 female presented for hypertensive crisis Asked to evaluate for colitis No abdominal pain, fevers, chills Recommend CT A/P with PO contrast to evaluate if colitis is a concern
[2016-11-13 11:35] LABS: INR 8.01 (0.82-1.09)
--- NOTE | 2016-11-13 12:07 | CONS ---
DATE OF CONSULTATION: HISTORY: This is a 76-year-old female who I am asked to see for evaluation of fever and pulmonary infiltrate. She has multiple comorbidities including end-stage renal disease on diastolic, atrial fibrillation, status post stroke, and COPD. She is also a diabetic with chronic anemia and was brought to the emergency room due to hypertensive emergency. Apparently yesterday she felt dizzy, and the [facility] staff found her systolic blood pressure to be 240. EMS was called, and she was then brought to the hospital where her blood pressure was stabilized to baseline. While here, she was noted to be febrile between 100 and over 101. She was also mildly short of breath and experiencing a productive cough, which she has had for several days. Antibiotics were administered, and she was given a gram of vancomycin and a dose of aztreonam. She weighs nearly 300 pounds. Currently she is alert, conversive, and able to answer questions. There is no history of recent travel or HIV risk factors. She is on dialysis via an AV graft in her right arm. PAST MEDICAL HISTORY: As noted above. MEDICATIONS: Include aspirin, atorvastatin, digoxin, insulin, metoprolol, oxycodone, and Coumadin. ALLERGIES: PENICILLIN with tongue swelling. SOCIAL HISTORY: Never smoked. No history of alcohol or substance abuse. HIV status unknown. FAMILY HISTORY: Positive for diabetes and a father who had prostate cancer now . REVIEW OF SYSTEMS: Respiratory: Productive cough with sputum. No hemoptysis. Mild shortness of breath. Cardiac: No chest pain, palpitations, syncope. Gastrointestinal: No abdominal pain, vomiting, diarrhea. Genitourinary: End-stage renal disease. No hematuria. PHYSICAL EXAMINATION: General: She is a heavy set female alert in mild distress. Vital Signs: Temperature maximum 101.6, blood pressure 118/50, pulse 70, respirations 20, O2 oximetry 96% room air. Neck: Supple. No adenopathy. Lungs: Diminished breath sounds bilaterally. Heart: S1, S2. Regular rhythm without audible murmur. HEENT: Reveals hemorrhagic injection of the right eye. Abdomen: Soft and nontender without hepatosplenomegaly, guarding, or rebound. Extremities: Without clubbing, cyanosis, or edema. AV graft in the right arm. LABORATORY DATA: White count 12.5, hemoglobin 9.2, platelets 172, BUN 50, creatinine 8.3, TNI 0.03. Two sets of blood cultures pending. Chest x-ray was reviewed. Shows pulmonary congestion with possible right lower lobe pneumonia. ASSESSMENT: 1. Sepsis syndrome. 2. Status post hypertensive emergency. 3. Pneumonia with fever to 101. 4. End-stage renal disease. 5. Hemorrhagic injection of the right eye. PLAN: The patient has a history of anaphylaxis to PENICILLIN. Therefore, we will give her vancomycin based on body weight, thus, an additional 750 mg loading dose and aztreonam 1 g b.i.d. based on her size. Azithromycin 500 mg to be added. Sputum for C and S, Legionella urinary antigen if she can produce urine, and two sets of blood cultures to be obtained. The case will be discussed with Dr. Cazares regarding need for ophthalmology consultation. OLIVIA DIAZ M.D. [id number]
[2016-11-13] MEDS ORDERED: PHYTONADIONE 10 MG/1 ML AMP SQ ONE (12:30)
[2016-11-13] MEDS ORDERED: PHYTONADIONE 10 MG/1 ML AMP ONE (12:37)
[2016-11-13] MEDS: AZTREONAM 1 GM in DEXTROSE 5%-WATER - 50 ML IVPB SCH ×2 (12:42→23:48)
[2016-11-13] MEDS: AZITHROMYCIN IVPB 250 ML IVPB SCH (14:25)
[2016-11-13] MEDS ORDERED: HEPARIN NA (PORCINE) 5,000 UNITS/ML 1ML VIAL IVPUSH ONE (14:31)
--- NOTE | 2016-11-13 15:01 | CON.CARD ---
Consult Consult Specialty:: Cardiology Referred by:: Dr Caazres Reason for Consultation:: HTN - History of Present Illness Chief Complaint: dizziness, htn History of Present Illness: 76 yo F with pmh of CVA, AFIB, HLD, COPD, Constipation, ESRD on HD, Hypotension (emma after HD), DM, Anemia, who presents to ER after an episode of dizziness and leg pain at rehab. Noted with severely elevated BP on standing, given medications now at baseline. She denies chest pain, sob, orthopnea, pnd or edema. No palpitations or syncope. Exercise tolerance is poor due to severe leg pain. Being worked up for colitis, getting abx. Nuclear stress 12/10/13 moderate sized lateral ischemia, EF 36%. Echo 12/07/13 moderately reduced LV function. 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 No: CAD, CHF Gastrointestinal: Yes: Constipation Renal/: Yes: Renal Failure, Hemodialysis, Other (renal cysts see HPI) Endocrine: Yes: Diabetes Mellitus Additional Medical History: Right superficial breast mass which she noted for the last 2 weeks and has enlarged in size. Minimal drainage has been noted. - Past Surgical History Past Surgical History: Yes: Appendectomy, AV Fistula/Graft, Cholecystectomy, Hernia Repair - Alcohol/Substance Use Hx Alcohol Use: No - Smoking History Smoking history: Never smoked Have you smoked in the past 12 months: No - Social History ADL: Independent History of Recent Travel: No Home Medications - Allergies Allergies/Adverse Reactions: Allergies Allergy/AdvReac Type Severity Reaction Status Date / Time Penicillins Allergy Swelling Verified 11/12/16 10:59 - Home Medications Home Medications: Ambulatory Orders Aa/Hydrolyzed Collagen, Whey [Lps 15-30 Liquid] 30 ml PO BID 11/12/16 Aa/Hydrolyzed Collagen, Whey [Lps Neutral Flavor Liquid] 30 ml PO BID 11/12/16 Acetaminophen [Tylenol] 325 mg PO Q4H 11/12/16 Aspirin [ASA -] 81 mg PO DAILY 11/12/16 Atorvastatin Ca [Lipitor] 40 mg PO HS 11/12/16 Digoxin [Lanoxin -] 0.125 mg PO DAILY 11/12/16 Docusate Sodium [Colace -] 100 mg PO BID 11/12/16 Guaifenesin Dm [Robitussin Dm -] 10 ml PO Q4H PRN 11/12/16 Insulin Detemir [Levemir Flextouch] 15 unit SQ BID 11/12/16 Insulin Lispro [Humalog] 0 units SCJ ACHS 11/12/16 Lactulose (Oral Use) [Cephulac -] 20 gm PO TID 11/12/16 Metoprolol Succinate [Toprol Xl -] 25 mg PO DAILY 11/12/16 Nitroglycerin Patch [Nitro-Dur] 0.2 mg TD DAILY PRN 11/12/16 Ondansetron [Zofran *Odt*] 4 mg SL DAILY 11/12/16 Oxycodone HCl [Oxycontin] 10 mg PO Q6H 11/12/16 Psyllium Husk (with Sugar) [Metamucil Packet] 3.4 gm PO Q48H 11/12/16 Sennosides [Senna] 8.6 mg PO HS 11/12/16 Sevelamer Carbonate [Renvela] 2,400 mg PO TID 11/12/16 Silver Sulfadiazine 1% Top Cr [Silvadene -] 1 applic TP TID 11/12/16 Sodium Chloride [Saline Mist] 2 drop NS DAILY 11/12/16 Warfarin Sodium [Coumadin] 8 mg PO DAILY 11/12/16 Family Disease History - Family Disease History Family Disease History: Diabetes: Sister (), CA: Father (prostate Ca; ) Review of Systems - Review of Systems Constitutional: reports: Fever, Weakness Gastrointestinal: reports: No Symptoms Vital Signs: Vital Signs Temperature 98.3 F 11/13/16 14:53 Pulse Rate 78 11/13/16 14:53 Respiratory Rate 20 11/13/16 14:53 Blood Pressure 138/41 11/13/16 14:53 O2 Sat by Pulse Oximetry (%) 98 11/13/16 14:53 Constitutional: Yes: No Distress, Calm Eyes: Yes: Other (erythema OS.) HENT: Yes: Atraumatic Neck: Yes: Supple Respiratory: Yes: CTA Bilaterally Gastrointestinal: Yes: Normal Bowel Sounds, Soft, Abdomen, Obese Cardiovascular: Yes: Pulse Irregular JVD: No Carotid Bruit: No PMI: Non-Displaced Heart Sounds: Yes: S1, S2 Murmur: Yes: Systolic Murmur, Grade 2 Musculoskeletal: Yes: Muscle Pain Extremities: Yes: WNL Edema: No Peripheral Pulses WNL: Yes Neurological: Yes: Alert - Other Data Labs, Other Data: CBC, BMP 11/13/16 06:00 11/13/16 06:35 INR, PTT INR 8.01 (0.82-1.09) H* D 11/13/16 11:05 atrial fibrillation, LAD, nssttw changes. Echo: Report Reviewed Ejection Fraction %: LVEF > or = 40 % Imaging - Results Chest X-ray: Report Reviewed (rt base atalectasis, chf.) Problem List - Problems (1) HTN (hypertension) Assessment/Plan: BP is at baseline, will observe for now. No need to repeat CV adorno at this point. Cardiac status is stable. Code(s): I10 - ESSENTIAL (PRIMARY) HYPERTENSION Qualifiers: Hypertension type: essential hypertension Qualified Code(s): I10 - Essential (primary) hypertension (2) Fluid overload Assessment/Plan: HD for fluid removal. Code(s): E87.70 - FLUID OVERLOAD, UNSPECIFIED Qualifiers: Hypervolemia type: unspecified Qualified Code(s): E87.70 - Fluid overload, unspecified (3) Atrial fibrillation Assessment/Plan: continue coumadin for INR 2-3, hold and redose, will need different dose in the setting of sepsis, abx. Code(s): I48.91 - UNSPECIFIED ATRIAL FIBRILLATION Qualifiers: Atrial fibrillation type: chronic Qualified Code(s): I48.2 - Chronic atrial fibrillation
--- NOTE | 2016-11-13 17:19 | CONSULT ---
Consult - text type - Consultation Consultation Note: Renal Consult for ESRD on HD This is a 76 year old woman with PMhx of ESRD on HD, DM Type 2, PVD, Afib on Coumadin, Lumbar Radiculpathy who presented with hypertensive emergency from SNF. Pt reported that her legs felt weak at the NH and when she stood up was told that her BP was very high. Was given Nitro patch in SNF and trasfered to the ED. BP at baseline in the ED. Pt noted to have INR of 8. Denies any sob, chest pain, abd pain, N/V/D. Hgb also noted to be lower then prior admission but denies any melena PMhx: as above Allergies: NKDA Family Hx: NC Social Hx: No T/A/D ROS: as per HPI Home Meds: Home Medications Medication Instructions Recorded Aa/Hydrolyzed Collagen, Whey [Lps 30 ml PO BID 11/12/16 15-30 Liquid] Aa/Hydrolyzed Collagen, Whey [Lps 30 ml PO BID 11/12/16 Neutral Flavor Liquid] Acetaminophen [Tylenol] 325 mg PO Q4H 11/12/16 Aspirin [ASA -] 81 mg PO DAILY 11/12/16 Atorvastatin Ca [Lipitor] 40 mg PO HS 11/12/16 Digoxin [Lanoxin -] 0.125 mg PO DAILY 11/12/16 Docusate Sodium [Colace -] 100 mg PO BID 11/12/16 Guaifenesin Dm [Robitussin Dm -] 10 ml PO Q4H PRN 11/12/16 Insulin Detemir [Levemir Flextouch] 15 unit SQ BID 11/12/16 Insulin Lispro [Humalog] 0 units SCJ ACHS 11/12/16 Lactulose (Oral Use) [Cephulac -] 20 gm PO TID 11/12/16 Metoprolol Succinate [Toprol Xl -] 25 mg PO DAILY 11/12/16 Nitroglycerin Patch [Nitro-Dur] 0.2 mg TD DAILY PRN 11/12/16 Ondansetron [Zofran *Odt*] 4 mg SL DAILY 11/12/16 Oxycodone HCl [Oxycontin] 10 mg PO Q6H 11/12/16 Psyllium Husk (with Sugar) 3.4 gm PO Q48H 11/12/16 [Metamucil Packet] Sennosides [Senna] 8.6 mg PO HS 11/12/16 Sevelamer Carbonate [Renvela] 2,400 mg PO TID 11/12/16 Silver Sulfadiazine 1% Top Cr 1 applic TP TID 11/12/16 [Silvadene -] Sodium Chloride [Saline Mist] 2 drop NS DAILY 11/12/16 Warfarin Sodium [Coumadin] 8 mg PO DAILY 11/12/16 Vital Signs Temperature 98.4 F 11/13/16 15:15 Pulse Rate 82 11/13/16 15:50 Respiratory Rate 18 11/13/16 15:50 Blood Pressure 98/35 11/13/16 15:50 O2 Sat by Pulse Oximetry (%) 98 11/13/16 14:53 Intake & Output 11/10/16 11/11/16 11/12/16 11/13/16 23:59 23:59 23:59 23:59 Weight 261 lb Gen: NAD, awake and alert HEENT: Right eye erythema and discharge CVS: RRR, No M/R Lungs: CTA, no rales or wheeze Abd: soft NT/ND Ext: no edema, clubbing or cyanosis : No bladder distension Neuro: Awake and alert, no focal defects CBC, BMP 11/13/16 06:00 11/13/16 06:35 Current Medications Acetaminophen (Tylenol Suppository -) 650 mg [place] Q6H PRN PRN Reason: FEVER OR PAIN Albuterol/Ipratropium (Duoneb -) 1 amp NEB QIDR [facility] Last Admin: 11/12/16 12:01 Dose: 1 amp Dextrose/Sodium Chloride (D5-Ns -) 1,000 mls @ 75 mls/hr IV ASDIR [facility] Last Admin: 11/12/16 17:45 Dose: 75 mls/hr Azithromycin (Zithromax 500mg Ivpb (Pre-Docked)) 250 mls @ 250 mls/hr IVPB DAILY [facility] Last Admin: 11/13/16 14:25 Dose: 250 mls/hr Aztreonam 1 gm/ Dextrose 50 mls @ 100 mls/hr IVPB BID [facility] PRN Reason: Protocol Last Admin: 11/13/16 12:42 Dose: 100 mls/hr Insulin Aspart (Novolog Vial Sliding Scale -) 1 vial SQ ACHS [facility] PRN Reason: Protocol Last Admin: 11/13/16 12:36 Dose: 4 units Insulin Detemir (Levemir Vial) 40 units SQ AM [facility] Last Admin: 11/13/16 06:10 Dose: Not Given Insulin Detemir (Levemir Vial) 15 units SQ HS [facility] Morphine Sulfate (Morphine Injection -) 2 mg IVPUSH Q6H PRN PRN Reason: PAIN Ondansetron HCl (Zofran Injection) 4 mg IVPB Q6H PRN PRN Reason: NAUSEA A/P 76 year old woman with PMhx of ESRD on HD, DM Type 2, PVD, Afib on Coumadin, Lumbar Radiculpathy who presented with hypertensive emergency from SNF. #Hypertensive emergency/urgency Bp now at baseline UF with HD #ESRD/Hyperkalemia Routine HD today UF as tolerated Dose all meds for intermittent HD #Supratheraputic INR s/p Vit K SC hold coumadin Trend INR #Right eye hemorrhage/discharge Optho consult #Anemia for PRBC transfusion today Trend CBC repeat cbc and inr s/p transfusion Thank you Alon Page DO
[2016-11-13] MEDS: ALBUTEROL SO4 2.5/IPRATROPIUM 0.5 INH SOL 3 ML VIAL.NEB. NEB SCH ×2 (18:42→23:06)
--- NOTE | 2016-11-13 19:49 | CON.GI ---
Consult Consult Specialty:: gastroenterology Referred by:: Brady Hamm MD - History of Present Illness History of Present Illness: 76 y/o female was admitted for hypertensive crisis. At present she denies,nausea ,vomiting,abdominal pain,dysphagia,diarrhea nor constipation. 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 No: CAD, CHF Gastrointestinal: Yes: Constipation Renal/: Yes: Renal Failure, Hemodialysis, Other (renal cysts see HPI) Endocrine: Yes: Diabetes Mellitus Additional Medical History: Right superficial breast mass which she noted for the last 2 weeks and has enlarged in size. Minimal drainage has been noted. - Past Surgical History Past Surgical History: Yes: Appendectomy, AV Fistula/Graft, Cholecystectomy, Hernia Repair - Alcohol/Substance Use Hx Alcohol Use: No - Smoking History Smoking history: Never smoked Have you smoked in the past 12 months: No - Social History ADL: Independent History of Recent Travel: No Home Medications - Allergies Allergies/Adverse Reactions: Allergies Allergy/AdvReac Type Severity Reaction Status Date / Time Penicillins Allergy Swelling Verified 11/12/16 10:59 - Home Medications Home Medications: Ambulatory Orders Aa/Hydrolyzed Collagen, Whey [Lps 15-30 Liquid] 30 ml PO BID 11/12/16 Aa/Hydrolyzed Collagen, Whey [Lps Neutral Flavor Liquid] 30 ml PO BID 11/12/16 Acetaminophen [Tylenol] 325 mg PO Q4H 11/12/16 Aspirin [ASA -] 81 mg PO DAILY 11/12/16 Atorvastatin Ca [Lipitor] 40 mg PO HS 11/12/16 Digoxin [Lanoxin -] 0.125 mg PO DAILY 11/12/16 Docusate Sodium [Colace -] 100 mg PO BID 11/12/16 Guaifenesin Dm [Robitussin Dm -] 10 ml PO Q4H PRN 11/12/16 Insulin Detemir [Levemir Flextouch] 15 unit SQ BID 11/12/16 Insulin Lispro [Humalog] 0 units SCJ ACHS 11/12/16 Lactulose (Oral Use) [Cephulac -] 20 gm PO TID 11/12/16 Metoprolol Succinate [Toprol Xl -] 25 mg PO DAILY 11/12/16 Nitroglycerin Patch [Nitro-Dur] 0.2 mg TD DAILY PRN 11/12/16 Ondansetron [Zofran *Odt*] 4 mg SL DAILY 11/12/16 Oxycodone HCl [Oxycontin] 10 mg PO Q6H 11/12/16 Psyllium Husk (with Sugar) [Metamucil Packet] 3.4 gm PO Q48H 11/12/16 Sennosides [Senna] 8.6 mg PO HS 11/12/16 Sevelamer Carbonate [Renvela] 2,400 mg PO TID 11/12/16 Silver Sulfadiazine 1% Top Cr [Silvadene -] 1 applic TP TID 11/12/16 Sodium Chloride [Saline Mist] 2 drop NS DAILY 11/12/16 Warfarin Sodium [Coumadin] 8 mg PO DAILY 11/12/16 Family Disease History - Family Disease History Family Disease History: Diabetes: Sister (), CA: Father (prostate Ca; ) Review of Systems - Review of Systems Constitutional: denies: Fever Eyes: denies: Blind Spots HENT: denies: Difficult Swallowing Cardiovascular: denies: Chest Pain Respiratory: denies: SOB Gastrointestinal: denies: Abdominal Pain, Diarrhea, Dysphagia Physical Exam-GI Vital Signs: Vital Signs Temperature 98.4 F 11/13/16 15:15 Pulse Rate 84 11/13/16 19:28 Respiratory Rate 18 11/13/16 19:28 Blood Pressure 120/66 11/13/16 19:28 O2 Sat by Pulse Oximetry (%) 98 11/13/16 14:53 Labs: CBC, BMP 11/13/16 06:00 11/13/16 06:35 INR, PTT INR 8.01 (0.82-1.09) H* D 11/13/16 11:05 Problem List - Problems (1) Colitis Assessment/Plan: --resolved R> please recall as necessary Code(s): K52.9 - NONINFECTIVE GASTROENTERITIS AND COLITIS, UNSPECIFIED
[2016-11-14] MEDS: INSULIN DETEMIR 100 UNITS/ML MDV SQ SCH ×2 (05:59→21:38)
[2016-11-14] MEDS: INSULIN SLIDING SCALE (NOVOLOG) 1 VIAL SQ SCH ×4 (05:59→21:35)
[2016-11-14] MEDS: ALBUTEROL SO4 2.5/IPRATROPIUM 0.5 INH SOL 3 ML VIAL.NEB. NEB SCH ×4 (06:46→23:48)
[2016-11-14 08:03] LABS: INR 1.86 (0.82-1.09); PROTHROMBIN TIME (PATIENT) 20.7 SEC (9.98-11.88)
[2016-11-14] MEDS: AZTREONAM 1 GM in DEXTROSE 5%-WATER - 50 ML IVPB SCH ×2 (10:05→21:39)
[2016-11-14 10:29] LABS: MCH 29.5 pg (25.7-33.7); MCHC 32.2 g/dl (32.0-36.0); MEAN CELL VOLUME 91.4 fl (80-96); MEAN PLT VOLUME 9.1 fl (7.5-11.1); PLATELET COUNT 145 K/MM3 (134-434); RDW 16.1 % (11.6-15.6); WHITE BLOOD COUNT 11.4 K/mm3 (4.0-10.0)
[2016-11-14 10:39] LABS: ALBUMIN 2.2 g/dl (3.4-5.0); CALCIUM 8.6 mg/dL (8.5-10.1); COCKROFT - GAULT 13.5575; CREATININE 6.8 mg/dL (0.55-1.02)
[2016-11-14 10:40] LABS: BILIRUBIN,TOTAL 0.5 mg/dL (0.2-1.0); TOT PROT 5.5 g/dl (6.4-8.2)
[2016-11-14] MEDS: AZITHROMYCIN IVPB 250 ML IVPB SCH (10:44)
--- NOTE | 2016-11-14 11:05 | PN ---
Progress Note (short form) - Note Progress Note: Pt seen and examined this am. She denies any abd pain, nauea or emesis. She complains of buttock pain and states that she has a chronic wound to this area. Vital Signs Period Temp Pulse Resp BP Sys/Prince Pulse Ox Last 24 Hr 98.3 F-100.2 F 72-97 18-21 98-138/35-77 98-98 PE: ABD: soft, non-distended, non-tender. Obese Buttock region: Right buttock with mild tenderness and pencil size opening approximately 4 cm from the rectum with small amount of purulent drainage. No erythema or induration. CBC, BMP 11/14/16 10:00 11/14/16 10:00 Microbiology 11/12/16 11:21 Blood - Peripheral Venous Blood Culture - Preliminary NO GROWTH OBTAINED AFTER 24 HOURS, INCUBATION TO CONTINUE FOR 4 DAYS. 11/12/16 11:21 Blood - Peripheral Venous Blood Culture - Preliminary NO GROWTH OBTAINED AFTER 24 HOURS, INCUBATION TO CONTINUE FOR 4 DAYS. CXR: RRL infiltrate A/P: 76 yo female with fevers, being treated for RLL infiltrate with fever today of 100.[address] Joseph and recommend CT scan of abd if she develops abd pain. At this time she has no abdominal symptoms. Also, she has a right buttock wound without induration/erythema. Recommend warm compress to the right buttock area and duoderm to sacral region where skin is broken down
[2016-11-14] MEDS ORDERED: INSULIN (NOVOLOG) ASPART 100 UNITS/ML 10ML VIAL ONE ×2 (11:53→21:35)
--- NOTE | 2016-11-14 11:57 | CON.PULM ---
Consult Consult Specialty:: PULM/CCM Referred by:: SARAH Reason for Consultation:: Abnormal CXR - History of Present Illness Chief Complaint: dizziness / elevated BP History of Present Illness: 76 F, CVA, AFIB, HLD, COPD, Constipation, ESRD on HD, DM, and Anemia. Admitted via the ER from a SNF due to dizziness and elevated BP. Patient apparently has been coughing for a few weeks according to chart documentation. She was also documented to have hypoxemia to the 80's. No travel history or sick contacts. No hemoptysis or night sweats. CXR: RLL consolidation. 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 No: CAD, CHF Gastrointestinal: Yes: Constipation Renal/: Yes: Renal Failure, Hemodialysis, Other (renal cysts see HPI) Endocrine: Yes: Diabetes Mellitus Additional Medical History: Right superficial breast mass which she noted for the last 2 weeks and has enlarged in size. Minimal drainage has been noted. - Past Surgical History Past Surgical History: Yes: Appendectomy, AV Fistula/Graft, Cholecystectomy, Hernia Repair - Alcohol/Substance Use Hx Alcohol Use: No - Smoking History Smoking history: Never smoked Have you smoked in the past 12 months: No - Social History ADL: Independent History of Recent Travel: No Home Medications - Allergies Allergies/Adverse Reactions: Allergies Allergy/AdvReac Type Severity Reaction Status Date / Time Penicillins Allergy Swelling Verified 11/12/16 10:59 - Home Medications Home Medications: Ambulatory Orders Aa/Hydrolyzed Collagen, Whey [Lps 15-30 Liquid] 30 ml PO BID 11/12/16 Aa/Hydrolyzed Collagen, Whey [Lps Neutral Flavor Liquid] 30 ml PO BID 11/12/16 Acetaminophen [Tylenol] 325 mg PO Q4H 11/12/16 Aspirin [ASA -] 81 mg PO DAILY 11/12/16 Atorvastatin Ca [Lipitor] 40 mg PO HS 11/12/16 Digoxin [Lanoxin -] 0.125 mg PO DAILY 11/12/16 Docusate Sodium [Colace -] 100 mg PO BID 11/12/16 Guaifenesin Dm [Robitussin Dm -] 10 ml PO Q4H PRN 11/12/16 Insulin Detemir [Levemir Flextouch] 15 unit SQ BID 11/12/16 Insulin Lispro [Humalog] 0 units SCJ ACHS 11/12/16 Lactulose (Oral Use) [Cephulac -] 20 gm PO TID 11/12/16 Metoprolol Succinate [Toprol Xl -] 25 mg PO DAILY 11/12/16 Nitroglycerin Patch [Nitro-Dur] 0.2 mg TD DAILY PRN 11/12/16 Ondansetron [Zofran *Odt*] 4 mg SL DAILY 11/12/16 Oxycodone HCl [Oxycontin] 10 mg PO Q6H 11/12/16 Psyllium Husk (with Sugar) [Metamucil Packet] 3.4 gm PO Q48H 11/12/16 Sennosides [Senna] 8.6 mg PO HS 11/12/16 Sevelamer Carbonate [Renvela] 2,400 mg PO TID 11/12/16 Silver Sulfadiazine 1% Top Cr [Silvadene -] 1 applic TP TID 11/12/16 Sodium Chloride [Saline Mist] 2 drop NS DAILY 11/12/16 Warfarin Sodium [Coumadin] 8 mg PO DAILY 11/12/16 Family Disease History - Family Disease History Family Disease History: Diabetes: Sister (), CA: Father (prostate Ca; ) Review of Systems - Review of Systems Constitutional: reports: Lethargy, Weakness. denies: Chills, Diaphoresis, Fever , Malaise, Night Sweats, Unintentional Wgt. Loss Eyes: reports: No Symptoms HENT: reports: No Symptoms Neck: reports: No Symptoms Cardiovascular: denies: Chest Pain, Palpitations, Shortness of Breath Respiratory: reports: Cough. denies: Hemoptysis, SOB, SOB on Exertion, Wheezing Gastrointestinal: reports: No Symptoms Genitourinary: reports: No Symptoms Breasts: reports: No Symptoms Reported Musculoskeletal: reports: No Symptoms Integumentary: reports: No Symptoms Neurological: reports: No Symptoms Endocrine: reports: No Symptoms Hematology/Lymphatic: reports: No Symptoms Psychiatric: reports: No Symptoms Physical Exam Vital Sings: Vital Signs Temperature 99.4 F 11/14/16 10:00 Pulse Rate 82 11/14/16 10:00 Respiratory Rate 20 11/14/16 10:00 Blood Pressure 101/40 11/14/16 10:00 O2 Sat by Pulse Oximetry (%) 98 11/13/16 22:00 Constitutional: Yes: No Distress, Calm Eyes: Yes: Conjunctiva Clear, EOM Intact HENT: Yes: Atraumatic, Normocephalic Neck: Yes: Supple, Trachea Midline Cardiovascular: Yes: Pulse Irregular Respiratory: Yes: Cough, Diminished, On Nasal O2, Rhonchi. No: Accessory Muscle Use, Rales, Stridor, Tachypnea, Wheezes ...Inspection: Yes: WNL ...Clubbing: No Gastrointestinal: Yes: Normal Bowel Sounds, Soft, Abdomen, Obese Renal/: Yes: Anuria Extremities: Yes: WNL Edema: No Peripheral Pulses WNL: Yes Integumentary: Yes: WNL Neurological: Yes: WNL, Alert, Oriented ...Motor Strength: WNL Psychiatric: Yes: Alert, Oriented Labs: CBC, BMP 11/14/16 10:00 11/14/16 10:00 Imaging - Results Chest X-ray: Report Reviewed, Image Reviewed Problem List - Problems (1) COPD (chronic obstructive pulmonary disease) Code(s): J44.9 - CHRONIC OBSTRUCTIVE PULMONARY DISEASE, UNSPECIFIED Qualifiers : COPD type: unspecified COPD Qualified Code(s): J44.9 - Chronic obstructive pulmonary disease, unspecified (2) End stage chronic kidney disease Code(s): N18.6 - END STAGE RENAL DISEASE Z99.2 - DEPENDENCE ON RENAL DIALYSIS (3) Fever Code(s): R50.9 - FEVER, UNSPECIFIED Qualifiers: Fever type: unspecified Qualified Code(s): R50.9 - Fever, unspecified (4) Pneumonia Code(s): J18.9 - PNEUMONIA, UNSPECIFIED ORGANISM Qualifiers: Pneumonia type: due to unspecified organism Laterality: right Lung location: lower lobe of lung Qualified Code(s): J18.1 - Lobar pneumonia, unspecified organism (5) ASHD (arteriosclerotic heart disease) Code(s): I25.10 - ATHSCL HEART DISEASE OF CIRCLE CORONARY ARTERY W/O ANG PCTRS (6) Anemia Code(s): D64.9 - ANEMIA, UNSPECIFIED Qualifiers: Anemia type: other cause Other causes of anemia: chronic disease, kidney (7) Atrial fibrillation Code(s): I48.91 - UNSPECIFIED ATRIAL FIBRILLATION Qualifiers: Atrial fibrillation type: chronic Qualified Code(s): I48.2 - Chronic atrial fibrillation (8) Carotid artery disease Code(s): I77.9 - DISORDER OF ARTERIES AND ARTERIOLES, UNSPECIFIED (9) Diabetes Code(s): E11.9 - TYPE 2 DIABETES MELLITUS WITHOUT COMPLICATIONS (10) ESRD (end stage renal disease) on dialysis Code(s): N18.6 - END STAGE RENAL DISEASE Z99.2 - DEPENDENCE ON RENAL DIALYSIS (11) HTN (hypertension) Code(s): I10 - ESSENTIAL (PRIMARY) HYPERTENSION Qualifiers: Hypertension type: essential hypertension Qualified Code(s): I10 - Essential (primary) hypertension (12) Hyperlipidemia Code(s): E78.5 - HYPERLIPIDEMIA, UNSPECIFIED (13) Obesity Code(s): E66.9 - OBESITY, UNSPECIFIED (14) Peripheral artery disease Code(s): I73.9 - PERIPHERAL VASCULAR DISEASE, UNSPECIFIED (15) Pulmonary hypertension Code(s): I27.2 - OTHER SECONDARY PULMONARY HYPERTENSION (16) Breast mass in female Code(s): N63 - UNSPECIFIED LUMP IN BREAST Assessment/Plan PLAN: Follow sputum culture (pending) O2 as needed ABX per ID VTE prophylaxis BD TX as ordered Monitor off systemic steroids for now Will need further breast mass w/up. Will follow Thank you. Dr Tavarez
--- NOTE | 2016-11-14 14:57 | PN ---
Progress Note, Physician Chief Complaint: feels weak. No further dizziness. History of Present Illness: 76 yo F with pmh of CVA, AFIB, HLD, COPD, Constipation, ESRD on HD, Hypotension (emma after HD), DM, Anemia, who presents to ER after an episode of dizziness and leg pain at rehab. Noted with severely elevated BP on standing, given medications now at baseline. She denies chest pain, sob, orthopnea, pnd or edema. No palpitations or syncope. Exercise tolerance is poor due to severe leg pain. Being worked up for colitis, getting abx. Nuclear stress 12/10/13 moderate sized lateral ischemia, EF 36%. Echo 12/07/13 moderately reduced LV function. - Current Medication List Current Medications: Active Medications Acetaminophen (Tylenol Suppository -) 650 mg NM Q6H PRN PRN Reason: FEVER OR PAIN Acetylcysteine (Mucomyst 20 Oral / Inh Use Only*) 800 mg NEB BID [facility] Albuterol/Ipratropium (Duoneb -) 1 amp NEB QIDR [facility] Last Admin: 11/14/16 06:46 Dose: 1 amp Ciprofloxacin (Ciloxan 0.3% Eye Drops -) 2 drop OD TID [facility] Dextrose/Sodium Chloride (D5-Ns -) 1,000 mls @ 75 mls/hr IV ASDIR [facility] Last Admin: 11/12/16 17:45 Dose: 75 mls/hr Azithromycin (Zithromax 500mg Ivpb (Pre-Docked)) 250 mls @ 250 mls/hr IVPB DAILY [facility] Last Admin: 11/14/16 10:44 Dose: 250 mls/hr Aztreonam 1 gm/ Dextrose 50 mls @ 100 mls/hr IVPB BID [facility] PRN Reason: Protocol Last Admin: 11/14/16 10:05 Dose: 100 mls/hr Insulin Aspart (Novolog Vial Sliding Scale -) 1 vial SQ ACHS [facility] PRN Reason: Protocol Last Admin: 11/14/16 11:52 Dose: 4 units Insulin Detemir (Levemir Vial) 40 units SQ AM [facility] Last Admin: 11/14/16 05:59 Dose: Not Given Insulin Detemir (Levemir Vial) 15 units SQ HS [facility] Last Admin: 11/13/16 22:46 Dose: 15 units Morphine Sulfate (Morphine Injection -) 2 mg IVPUSH Q6H PRN PRN Reason: PAIN Last Admin: 11/14/16 08:42 Dose: 2 mg Ondansetron HCl (Zofran Injection) 4 mg IVPB Q6H PRN PRN Reason: NAUSEA - Objective Vital Signs: Vital Signs Temperature 99.4 F 11/14/16 10:00 Pulse Rate 82 11/14/16 10:00 Respiratory Rate 20 11/14/16 10:00 Blood Pressure 101/40 11/14/16 10:00 O2 Sat by Pulse Oximetry (%) 97 11/14/16 09:00 Constitutional: Yes: No Distress Eyes: Yes: EOM Intact HENT: Yes: Atraumatic, Normocephalic Neck: Yes: Supple, Trachea Midline Cardiovascular: Yes: Regular Rate and Rhythm Respiratory: Yes: Dullness (rt base) Gastrointestinal: Yes: Normal Bowel Sounds, Soft, Abdomen, Obese Extremities: Yes: WNL Edema: No Peripheral Pulses WNL: Yes Labs: CBC, BMP 11/14/16 10:00 11/14/16 10:00 INR, PTT INR 1.86 (0.82-1.09) H D 11/14/16 06:55 Problem List - Problems (1) HTN (hypertension) Assessment/Plan: BP is at baseline, will observe for now. No need to repeat CV adorno at this point. Cardiac status is stable. Code(s): I10 - ESSENTIAL (PRIMARY) HYPERTENSION Qualifiers: Hypertension type: essential hypertension Qualified Code(s): I10 - Essential (primary) hypertension (2) Fluid overload Assessment/Plan: euvolemic on examination. HD for fluid removal. Code(s): E87.70 - FLUID OVERLOAD, UNSPECIFIED Qualifiers: Hypervolemia type: unspecified Qualified Code(s): E87.70 - Fluid overload, unspecified (3) Atrial fibrillation Assessment/Plan: continue coumadin for INR 2-3, hold and redose, will need different dose in the setting of sepsis, abx. Code(s): I48.91 - UNSPECIFIED ATRIAL FIBRILLATION Qualifiers: Atrial fibrillation type: chronic Qualified Code(s): I48.2 - Chronic atrial fibrillation
[2016-11-14] MEDS ORDERED: VANCOMYCIN 1 GRAM (PRE-DOCKED) 1,000 MG/250 ML BAG IVPB ONE (15:18)
--- NOTE | 2016-11-14 15:22 | PN ---
Progress Note (short form) - Note Progress Note: alert, nad still coughing Vital Signs Period Temp Pulse Resp BP Sys/Prince Pulse Ox Last 24 Hr 99.3 F-100.2 F 72-97 18-21 98-129/35-77 97-98 cor-rrr lungs decreased bs at bases abd soft,nt ext trace edema CBC, BMP 11/14/16 10:00 11/14/16 10:00 Laboratory Tests 11/14/16 10:20 Random Vancomycin 10.934 Microbiology 11/12/16 11:21 Blood - Peripheral Venous Blood Culture - Preliminary NO GROWTH OBTAINED AFTER 48 HOURS, INCUBATION TO CONTINUE FOR 3 DAYS. 11/12/16 11:21 Blood - Peripheral Venous Blood Culture - Preliminary NO GROWTH OBTAINED AFTER 48 HOURS, INCUBATION TO CONTINUE FOR 3 DAYS. a/p fever Right lower lobe pneumonia esrd/hd pen allergy continue vanco/azactam/zithromax redose vanco today check level with HD in am
[2016-11-14] MEDS: CIPROFLOXACIN HCL 0.3% OPHTH 2.5ML BOTTLE OD SCH ×2 (15:26→21:38)
--- NOTE | 2016-11-14 15:27 | PN ---
Progress Note (short form) - Note Progress Note: Renal Follow up for ESRD on HD Pt seen and examined at the bedside awake and alert NAD no acute. NO chest pain, sob, N/V Vital Signs Temperature 99.4 F 11/14/16 10:00 Pulse Rate 82 11/14/16 10:00 Respiratory Rate 20 11/14/16 10:00 Blood Pressure 101/40 11/14/16 10:00 O2 Sat by Pulse Oximetry (%) 97 11/14/16 09:00 Intake & Output 11/11/16 11/12/16 11/13/16 11/14/16 23:59 23:59 23:59 23:59 Intake Total 0 Balance 0 Weight 261 lb 261 lb Gen: NAD, awake and alert HEENT: Right eye erythema, ecyhomosis on lateral aspect of right eye CVS: RRR, No M/R Lungs: CTA, no rales or wheeze Abd: soft NT/ND Ext: no edema, clubbing or cyanosis CBC, BMP 11/14/16 10:00 11/14/16 10:00 Laboratory Tests 11/14/16 10:00 Calcium 8.6 Albumin 2.2 L Current Medications Acetaminophen (Tylenol Suppository -) 650 mg NE Q6H PRN PRN Reason: FEVER OR PAIN Acetylcysteine (Mucomyst 20 Oral / Inh Use Only*) 800 mg NEB BID [facility] Albuterol/Ipratropium (Duoneb -) 1 amp NEB QIDR [facility] Last Admin: 11/14/16 06:46 Dose: 1 amp Ciprofloxacin (Ciloxan 0.3% Eye Drops -) 2 drop OD TID [facility] Dextrose/Sodium Chloride (D5-Ns -) 1,000 mls @ 75 mls/hr IV ASDIR [facility] Last Admin: 11/12/16 17:45 Dose: 75 mls/hr Azithromycin (Zithromax 500mg Ivpb (Pre-Docked)) 250 mls @ 250 mls/hr IVPB DAILY [facility] Last Admin: 11/14/16 10:44 Dose: 250 mls/hr Aztreonam 1 gm/ Dextrose 50 mls @ 100 mls/hr IVPB BID [facility] PRN Reason: Protocol Last Admin: 11/14/16 10:05 Dose: 100 mls/hr Insulin Aspart (Novolog Vial Sliding Scale -) 1 vial SQ ACHS [facility] PRN Reason: Protocol Last Admin: 11/14/16 11:52 Dose: 4 units Insulin Detemir (Levemir Vial) 40 units SQ AM [facility] Last Admin: 11/14/16 05:59 Dose: Not Given Insulin Detemir (Levemir Vial) 15 units SQ HS [facility] Last Admin: 11/13/16 22:46 Dose: 15 units Morphine Sulfate (Morphine Injection -) 2 mg IVPUSH Q6H PRN PRN Reason: PAIN Last Admin: 11/14/16 08:42 Dose: 2 mg Ondansetron HCl (Zofran Injection) 4 mg IVPB Q6H PRN PRN Reason: NAUSEA Vancomycin HCl (Vancomycin (Pre-Docked)) 1,000 mg IVPB ONCE ONE PRN Reason: Protocol Stop: 11/14/16 15:19 A/P 76 year old woman with PMhx of ESRD on HD, DM Type 2, PVD, Afib on Coumadin, Lumbar Radiculpathy who presented with hypertensive emergency from SNF. #Hypertensive emergency/urgency BP now improved not on any antihypertensives #ESRD/Hyperkalemia s/p dialysis yesterday w/o any adverse events next dialysis is planned for tomorrow #Supratheraputic INR INR is < 2 #Right eye hemorrhage/discharge Optho consult rachel roblero #Anemia s/p PRBC transfusion will continue BRAD with HD Thank you Alon Page DO
--- NOTE | 2016-11-14 15:39 | PN ---
Progress Note, Physician Chief Complaint: SOB, High blood pressure. History of Present Illness: Originally came in with PNE, pleural effusions, CHF, uncontrolled diabetes, abnormal anticoagulation. - Current Medication List Current Medications: Active Medications Acetaminophen (Tylenol Suppository -) 650 mg [place] Q6H PRN PRN Reason: FEVER OR PAIN Acetylcysteine (Mucomyst 20 Oral / Inh Use Only*) 800 mg NEB BID [facility] Albuterol/Ipratropium (Duoneb -) 1 amp NEB QIDR [facility] Last Admin: 11/14/16 06:46 Dose: 1 amp Ciprofloxacin (Ciloxan 0.3% Eye Drops -) 2 drop OD TID [facility] Last Admin: 11/14/16 15:26 Dose: Not Given Epoetin Denis (Epogen -) 10,000 units IVPUSH ONCE ONE Stop: 11/15/16 06:01 Azithromycin (Zithromax 500mg Ivpb (Pre-Docked)) 250 mls @ 250 mls/hr IVPB DAILY [facility] Last Admin: 11/14/16 10:44 Dose: 250 mls/hr Aztreonam 1 gm/ Dextrose 50 mls @ 100 mls/hr IVPB BID [facility] PRN Reason: Protocol Last Admin: 11/14/16 10:05 Dose: 100 mls/hr Vancomycin HCl 1,000 mg/ (Dextrose) 250 mls @ 250 mls/hr IVPB ONCE ONE PRN Reason: Protocol Stop: 11/15/16 08:59 Insulin Aspart (Novolog Vial Sliding Scale -) 1 vial SQ ACHS [facility] PRN Reason: Protocol Last Admin: 11/14/16 11:52 Dose: 4 units Insulin Detemir (Levemir Vial) 40 units SQ AM [facility] Last Admin: 11/14/16 05:59 Dose: Not Given Insulin Detemir (Levemir Vial) 15 units SQ HS [facility] Last Admin: 11/13/16 22:46 Dose: 15 units Vancomycin HCl (Vancomycin (Pre-Docked)) 1,000 mg IVPB ONCE ONE PRN Reason: Protocol Stop: 11/14/16 15:19 - Objective Vital Signs: Vital Signs Temperature 99.4 F 11/14/16 10:00 Pulse Rate 82 11/14/16 10:00 Respiratory Rate 20 11/14/16 10:00 Blood Pressure 101/40 11/14/16 10:00 O2 Sat by Pulse Oximetry (%) 97 06/13/17 09:00 Constitutional: Yes: Well Nourished, No Distress, Calm Eyes: Yes: Other (right eye discharge, pain) Cardiovascular: Yes: Pulse Irregular Respiratory: Yes: Rhonchi (diffuse) Gastrointestinal: Yes: Normal Bowel Sounds Musculoskeletal: Yes: WNL Edema: Yes (BLLE trace) Edema: LLE: Trace, RLE: Trace Neurological: Yes: Alert, Lethargy Labs: CBC, BMP 11/14/16 10:00 11/14/16 10:00 INR, PTT INR 1.86 (0.82-1.09) H D 11/14/16 06:55 Problem List - Problems (1) End stage chronic kidney disease Assessment/Plan: Received HD yesterday, 3 kgs removed. patient started on renal diet. Code(s): N18.6 - END STAGE RENAL DISEASE Z99.2 - DEPENDENCE ON RENAL DIALYSIS (2) Fluid overload Assessment/Plan: BNP 78224, may be relieved by HD. Code(s): E87.70 - FLUID OVERLOAD, UNSPECIFIED Qualifiers: Hypervolemia type: unspecified Qualified Code(s): E87.70 - Fluid overload, unspecified (3) Pneumonia Assessment/Plan: IV abx, ID and pulmonary consult, nebulizer tx, chest physioptherapy. Code(s): J18.9 - PNEUMONIA, UNSPECIFIED ORGANISM Qualifiers: Pneumonia type: due to unspecified organism Laterality: right Lung location: lower lobe of lung Qualified Code(s): J18.1 - Lobar pneumonia, unspecified organism (4) Atrial fibrillation Assessment/Plan: Coumadin was held due to high INR, will restart and monitor PT/INR. Code(s): I48.91 - UNSPECIFIED ATRIAL FIBRILLATION Qualifiers: Atrial fibrillation type: chronic Qualified Code(s): I48.2 - Chronic atrial fibrillation (5) Diabetes mellitus, insulin dependent (IDDM), uncontrolled Assessment/Plan: better controlled. Code(s): E10.65 - TYPE 1 DIABETES MELLITUS WITH HYPERGLYCEMIA Qualifiers: Diabetes mellitus complication detail: with chronic kidney disease Chronic kidney disease stage: on chronic dialysis Assessment/Plan ID, Pulmonary, Cardiology consult IV abx Nebs Repeat CXR and BNP in Am D/C IVF Physical therapy.
[2016-11-14] MEDS ORDERED: WARFARIN NA 5 MG TABLET (UD) PO ONE (18:00)
[2016-11-14] MEDS ORDERED: PT OWN MED DRAWER 7, Y5N ONE (21:03)
[2016-11-14] MEDS: ACETYLCYSTEINE 20% 200MG/ML 30 ML VIAL *FOR ORAL / INH USE ONLY NEB SCH (22:10)
[2016-11-15] MEDS: CIPROFLOXACIN HCL 0.3% OPHTH 2.5ML BOTTLE OD SCH ×3 (06:31→23:17)
[2016-11-15] MEDS: INSULIN DETEMIR 100 UNITS/ML MDV SQ SCH ×2 (06:32→23:18)
[2016-11-15] MEDS: INSULIN SLIDING SCALE (NOVOLOG) 1 VIAL SQ SCH ×4 (06:32→23:26)
[2016-11-15] MEDS: ALBUTEROL SO4 2.5/IPRATROPIUM 0.5 INH SOL 3 ML VIAL.NEB. NEB SCH (06:35)
[2016-11-15] MEDS ORDERED: INSULIN (NOVOLOG) ASPART 100 UNITS/ML 10ML VIAL ONE ×2 (07:05→16:15)
[2016-11-15] MEDS ORDERED: PT OWN MED DRAWER 7, Y5N ONE ×4 (07:06→18:49)
[2016-11-15] MEDS ORDERED: VANCOMYCIN 1 GRAM (PRE-DOCKED) 250 ML IVPB SCH (08:00)
[2016-11-15 08:32] LABS: MCHC 32.3 g/dl (32.0-36.0); MEAN CELL VOLUME 92.9 fl (80-96); MEAN PLT VOLUME 9.2 fl (7.5-11.1); PLATELET COUNT 139 K/MM3 (134-434); RDW 16.1 % (11.6-15.6); WHITE BLOOD COUNT 9.8 K/mm3 (4.0-10.0)
[2016-11-15 08:55] LABS: INR 1.46 (0.82-1.09); PROTHROMBIN TIME (PATIENT) 16.2 SEC (9.98-11.88)
[2016-11-15 09:35] LABS: ALBUMIN 2.2 g/dl (3.4-5.0); BILIRUBIN,TOTAL 0.4 mg/dL (0.2-1.0); CALCIUM 8.8 mg/dL (8.5-10.1); TOT PROT 5.6 g/dl (6.4-8.2)
[2016-11-15] MEDS: AZTREONAM 1 GM in DEXTROSE 5%-WATER - 50 ML IVPB SCH ×2 (09:42→23:17)
[2016-11-15 09:50] LABS: COCKROFT - GAULT 10.999
--- NOTE | 2016-11-15 10:04 | PN ---
Progress Note, Physician History of Present Illness: MORE AWAKE STILL WITH A COUGH - Current Medication List Current Medications: Active Medications Acetaminophen (Tylenol Suppository -) 650 mg [place] Q6H PRN PRN Reason: FEVER OR PAIN Acetylcysteine (Mucomyst 20 Oral / Inh Use Only*) 800 mg NEB BID [facility] Last Admin: 11/14/16 22:10 Dose: Not Given Albuterol/Ipratropium (Duoneb -) 1 amp NEB QIDR [facility] Last Admin: 11/15/16 06:35 Dose: 1 amp Ciprofloxacin (Ciloxan 0.3% Eye Drops -) 2 drop OD TID [facility] Last Admin: 11/15/16 06:31 Dose: 2 drop Epoetin Denis (Procrit -) 10,000 unit IVPUSH ONCE ONE Stop: 11/15/16 06:01 Azithromycin (Zithromax 500mg Ivpb (Pre-Docked)) 250 mls @ 250 mls/hr IVPB DAILY [facility] Last Admin: 11/14/16 10:44 Dose: 250 mls/hr Aztreonam 1 gm/ Dextrose 50 mls @ 100 mls/hr IVPB BID [facility] PRN Reason: Protocol Last Admin: 11/15/16 09:42 Dose: 100 mls/hr Vancomycin HCl (Vancomycin (Pre-Docked)) 250 mls @ 250 mls/hr IVPB ONCE [facility] PRN Reason: Protocol Last Admin: 11/15/16 07:52 Dose: 250 mls/hr Insulin Aspart (Novolog Vial Sliding Scale -) 1 vial SQ ACHS [facility] PRN Reason: Protocol Last Admin: 11/15/16 06:32 Dose: Not Given Insulin Detemir (Levemir Vial) 40 units SQ AM [facility] Last Admin: 11/15/16 06:32 Dose: 40 units Insulin Detemir (Levemir Vial) 15 units SQ HS [facility] Last Admin: 11/14/16 21:38 Dose: 15 units - Objective Vital Signs: Vital Signs Temperature 98.8 F 11/15/16 08:41 Pulse Rate 82 11/15/16 08:41 Respiratory Rate 20 11/15/16 08:41 Blood Pressure 119/45 11/15/16 08:41 O2 Sat by Pulse Oximetry (%) 98 11/14/16 21:00 Cardiovascular: Yes: S1, S2 Respiratory: Yes: Diminished, On Nasal O2, Rhonchi Gastrointestinal: Yes: Normal Bowel Sounds, Soft Labs: CBC, BMP 11/15/16 06:52 INR, PTT INR 1.46 (0.82-1.09) H 11/15/16 06:52 Problem List - Problems (1) COPD (chronic obstructive pulmonary disease) Assessment/Plan: NEBS OXYGEN PULMONARY Code(s): J44.9 - CHRONIC OBSTRUCTIVE PULMONARY DISEASE, UNSPECIFIED Qualifiers : COPD type: unspecified COPD Qualified Code(s): J44.9 - Chronic obstructive pulmonary disease, unspecified (2) Anemia Assessment/Plan: TRANSFUSE PRBC FOLLOW LABS Code(s): D64.9 - ANEMIA, UNSPECIFIED Qualifiers: Anemia type: other cause Other causes of anemia: chronic disease, kidney (3) Atrial fibrillation Assessment/Plan: INR LOW RSUME COUMADIN--5MG MONITOR INR Code(s): I48.91 - UNSPECIFIED ATRIAL FIBRILLATION Qualifiers: Atrial fibrillation type: chronic Qualified Code(s): I48.2 - Chronic atrial fibrillation (4) Diabetes Assessment/Plan: BGM ENDO ON CASE Code(s): E11.9 - TYPE 2 DIABETES MELLITUS WITHOUT COMPLICATIONS (5) ESRD (end stage renal disease) Assessment/Plan: DIALYSIS TODAY MONITOR Code(s): N18.6 - END STAGE RENAL DISEASE (6) HTN (hypertension) Assessment/Plan: MONITOR BP ON MEDS Vital Signs Period Temp Pulse Resp BP Sys/Prince Pulse Ox Last 24 Hr 98.1 F-101.6 F 65-95 18-20 94-118/41-71 94-96 Code(s): I10 - ESSENTIAL (PRIMARY) HYPERTENSION Qualifiers: Hypertension type: essential hypertension Qualified Code(s): I10 - Essential (primary) hypertension (7) Fever Assessment/Plan: RESOLVED CULTURES Microbiology 11/12/16 11:21 Blood - Peripheral Venous Blood Culture - Preliminary NO GROWTH OBTAINED AFTER 48 HOURS, INCUBATION TO CONTINUE FOR 3 DAYS. 11/12/16 11:21 Blood - Peripheral Venous Blood Culture - Preliminary NO GROWTH OBTAINED AFTER 48 HOURS, INCUBATION TO CONTINUE FOR 3 DAYS. CXR--PNEUMONIA IV ABX ID CONSULT Code(s): R50.9 - FEVER, UNSPECIFIED Qualifiers: Fever type: unspecified Qualified Code(s): R50.9 - Fever, unspecified
[2016-11-15 10:15] LABS: PLATELET ESTIMATE DECREASED (NORMAL)
[2016-11-15] MEDS: ACETYLCYSTEINE 20% 200MG/ML 30 ML VIAL *FOR ORAL / INH USE ONLY NEB SCH (10:46)
[2016-11-15] MEDS: AZITHROMYCIN IVPB 250 ML IVPB SCH (10:49)
[2016-11-15 11:33] LABS: CREATININE 8.3 mg/dL (0.55-1.02)
[2016-11-15] MEDS ORDERED: EPOETIN ALFA 10,000 UNIT/1 ML VIAL IVPUSH ONE (13:00)
--- NOTE | 2016-11-15 13:09 | PN ---
Progress Note (short form) - Note Progress Note: Renal Follow up for ESRD on HD Pt seen and examined during dialysis BP stable, access functioning well no acute complaints was able to ambulate in the AM with PT Vital Signs Temperature 98.8 F 11/15/16 11:25 Pulse Rate 73 11/15/16 13:00 Respiratory Rate 18 11/15/16 13:00 Blood Pressure 108/44 11/15/16 13:00 O2 Sat by Pulse Oximetry (%) 92 L 11/15/16 10:47 Intake & Output 11/12/16 11/13/16 11/14/16 11/15/16 23:59 23:59 23:59 23:59 Intake Total 700 350 Balance 700 350 Weight 261 lb 261 lb 258 lb 7 oz Gen: NAD, awake and alert HEENT: Right eye erythema, ecyhomosis on lateral aspect of right eye CVS: RRR, No M/R Lungs: CTA, no rales or wheeze Abd: soft NT/ND Ext: no edema, clubbing or cyanosis CBC, BMP 11/15/16 06:52 11/15/16 08:15 Current Medications Acetaminophen (Tylenol Suppository -) 650 mg [place] Q6H PRN PRN Reason: FEVER OR PAIN Acetylcysteine (Mucomyst 20 Oral / Inh Use Only*) 800 mg NEB BID@0600,1800 [facility] Albuterol Sulfate (Ventolin 0.083% Nebulizer Soln -) 1 amp NEB Q6H PRN PRN Reason: SHORT OF BREATH/WHEEZING Ciprofloxacin (Ciloxan 0.3% Eye Drops -) 2 drop OD TID [facility] Last Admin: 11/15/16 06:31 Dose: 2 drop Azithromycin (Zithromax 500mg Ivpb (Pre-Docked)) 250 mls @ 250 mls/hr IVPB DAILY [facility] Last Admin: 11/15/16 10:49 Dose: 250 mls/hr Aztreonam 1 gm/ Dextrose 50 mls @ 100 mls/hr IVPB BID [facility] PRN Reason: Protocol Last Admin: 11/15/16 09:42 Dose: 100 mls/hr Vancomycin HCl (Vancomycin (Pre-Docked)) 250 mls @ 250 mls/hr IVPB ONCE [facility] PRN Reason: Protocol Last Admin: 11/15/16 07:52 Dose: 250 mls/hr Vancomycin HCl 500 mg/ (Dextrose) 250 mls @ 250 mls/hr IVPB ONCE ONE PRN Reason: Protocol Stop: 11/15/16 14:01 Insulin Aspart (Novolog Vial Sliding Scale -) 1 vial SQ ACHS [facility] PRN Reason: Protocol Last Admin: 11/15/16 06:32 Dose: Not Given Insulin Detemir (Levemir Vial) 40 units SQ AM [facility] Last Admin: 11/15/16 06:32 Dose: 40 units Insulin Detemir (Levemir Vial) 15 units SQ HS [facility] Last Admin: 11/14/16 21:38 Dose: 15 units Warfarin Sodium (Coumadin -) 5 mg PO DAILY@1800 [facility] A/P 76 year old woman with PMhx of ESRD on HD, DM Type 2, PVD, Afib on Coumadin, Lumbar Radiculpathy who presented with hypertensive emergency from SNF. #Hypertensive emergency/urgency BP has been stable throughout admission not currently on any antihypertenives #ESRD/Hyperkalemia tolerating dialysis well UF as tolerated #Supratheraputic INR INR is < 2 #Right eye hemorrhage/discharge Optho consult pending no change in vision as per pt #Anemia s/p PRBC transfusion will continue BRAD with HD #Suspected PNA Abx as per ID Vanco was given this am on th floor Check random level in AM Thank you Alon Page DO
[2016-11-15] MEDS ORDERED: VANCOMYCIN (PRE-DOCKED) 100 ML IVPB ONE (13:20)
--- NOTE | 2016-11-15 15:26 | PN ---
Progress Note, Physician History of Present Illness: PULMONARY ALERT,NAD,LESS DYSPNEIC,+ COUGH. PT CURRENTLY ON HD - Current Medication List Current Medications: Active Medications Acetaminophen (Tylenol Suppository -) 650 mg [place] Q6H PRN PRN Reason: FEVER OR PAIN Acetylcysteine (Mucomyst 20 Oral / Inh Use Only*) 800 mg NEB BID@0600,1800 [facility] Albuterol Sulfate (Ventolin 0.083% Nebulizer Soln -) 1 amp NEB Q6H PRN PRN Reason: SHORT OF BREATH/WHEEZING Ciprofloxacin (Ciloxan 0.3% Eye Drops -) 2 drop OD TID [facility] Last Admin: 11/15/16 06:31 Dose: 2 drop Azithromycin (Zithromax 500mg Ivpb (Pre-Docked)) 250 mls @ 250 mls/hr IVPB DAILY [facility] Last Admin: 11/15/16 10:49 Dose: 250 mls/hr Aztreonam 1 gm/ Dextrose 50 mls @ 100 mls/hr IVPB BID [facility] PRN Reason: Protocol Last Admin: 11/15/16 09:42 Dose: 100 mls/hr Vancomycin HCl (Vancomycin (Pre-Docked)) 250 mls @ 250 mls/hr IVPB ONCE [facility] PRN Reason: Protocol Last Admin: 11/15/16 07:52 Dose: 250 mls/hr Insulin Aspart (Novolog Vial Sliding Scale -) 1 vial SQ ACHS [facility] PRN Reason: Protocol Last Admin: 11/15/16 14:18 Dose: Not Given Insulin Detemir (Levemir Vial) 40 units SQ AM [facility] Last Admin: 11/15/16 06:32 Dose: 40 units Insulin Detemir (Levemir Vial) 15 units SQ HS [facility] Last Admin: 11/14/16 21:38 Dose: 15 units Warfarin Sodium (Coumadin -) 5 mg PO DAILY@1800 [facility] - Objective Vital Signs: Vital Signs Temperature 98.8 F 11/15/16 11:25 Pulse Rate 81 11/15/16 15:00 Respiratory Rate 18 11/15/16 15:00 Blood Pressure 126/48 11/15/16 15:00 O2 Sat by Pulse Oximetry (%) 92 L 11/15/16 10:47 Constitutional: Yes: Well Nourished, Calm Eyes: Yes: WNL HENT: Yes: WNL Neck: Yes: WNL Cardiovascular: Yes: Pulse Irregular, S1, S2 Respiratory: Yes: Rales (CRACKLES,FEW RHONCHI ON R) Gastrointestinal: Yes: Normal Bowel Sounds, Soft Extremities: Yes: WNL Edema: No Labs: CBC, BMP 11/15/16 06:52 11/15/16 08:15 INR, PTT INR 1.46 (0.82-1.09) H 11/15/16 06:52 - ....Imaging Chest X-ray: Report Reviewed, Image Reviewed Problem List - Problems (1) Hypoxia Code(s): R09.02 - HYPOXEMIA Assessment/Plan Problem List - Problems (1) COPD (chronic obstructive pulmonary disease) Code(s): J44.9 - CHRONIC OBSTRUCTIVE PULMONARY DISEASE, UNSPECIFIED Qualifiers : COPD type: unspecified COPD Qualified Code(s): J44.9 - Chronic obstructive pulmonary disease, unspecified (2) End stage chronic kidney disease Code(s): N18.6 - END STAGE RENAL DISEASE Z99.2 - DEPENDENCE ON RENAL DIALYSIS (3) Fever Code(s): R50.9 - FEVER, UNSPECIFIED Qualifiers: Fever type: unspecified Qualified Code(s): R50.9 - Fever, unspecified (4) Pneumonia Code(s): J18.9 - PNEUMONIA, UNSPECIFIED ORGANISM Qualifiers: Pneumonia type: due to unspecified organism Laterality: right Lung location: lower lobe of lung Qualified Code(s): J18.1 - Lobar pneumonia, unspecified organism (5) ASHD (arteriosclerotic heart disease) Code(s): I25.10 - ATHSCL HEART DISEASE OF [place] CORONARY ARTERY W/O ANG PCTRS (6) Anemia Code(s): D64.9 - ANEMIA, UNSPECIFIED Qualifiers: Anemia type: other cause Other causes of anemia: chronic disease, kidney (7) Atrial fibrillation Code(s): I48.91 - UNSPECIFIED ATRIAL FIBRILLATION Qualifiers: Atrial fibrillation type: chronic Qualified Code(s): I48.2 - Chronic atrial fibrillation (8) Carotid artery disease Code(s): I77.9 - DISORDER OF ARTERIES AND ARTERIOLES, UNSPECIFIED (9) Diabetes Code(s): E11.9 - TYPE 2 DIABETES MELLITUS WITHOUT COMPLICATIONS (10) ESRD (end stage renal disease) on dialysis Code(s): N18.6 - END STAGE RENAL DISEASE Z99.2 - DEPENDENCE ON RENAL DIALYSIS (11) HTN (hypertension) Code(s): I10 - ESSENTIAL (PRIMARY) HYPERTENSION Qualifiers: Hypertension type: essential hypertension Qualified Code(s): I10 - Essential (primary) hypertension (12) Hyperlipidemia Code(s): E78.5 - HYPERLIPIDEMIA, UNSPECIFIED (13) Obesity Code(s): E66.9 - OBESITY, UNSPECIFIED (14) Peripheral artery disease Code(s): I73.9 - PERIPHERAL VASCULAR DISEASE, UNSPECIFIED (15) Pulmonary hypertension Code(s): I27.2 - OTHER SECONDARY PULMONARY HYPERTENSION (16) Breast mass in female Code(s): N63 - UNSPECIFIED LUMP IN BREAST Assessment/Plan PLAN: O2 as needed ABX per ID VTE prophylaxis BD TX as ordered HD as per renal DR LEVINE
--- NOTE | 2016-11-15 15:48 | PN ---
Progress Note, Physician Chief Complaint: feels weak. No further dizziness. History of Present Illness: 76 yo F with pmh of CVA, AFIB, HLD, COPD, Constipation, ESRD on HD, Hypotension (emma after HD), DM, Anemia, who presents to ER after an episode of dizziness and leg pain at rehab. Noted with severely elevated BP on standing, given medications now at baseline. She denies chest pain, sob, orthopnea, pnd or edema. No palpitations or syncope. Exercise tolerance is poor due to severe leg pain. Being worked up for colitis, getting abx. Nuclear stress 12/10/13 moderate sized lateral ischemia, EF 36%. Echo 12/07/13 moderately reduced LV function. - Current Medication List Current Medications: Active Medications Acetaminophen (Tylenol Suppository -) 650 mg [place] Q6H PRN PRN Reason: FEVER OR PAIN Acetylcysteine (Mucomyst 20 Oral / Inh Use Only*) 800 mg NEB BID@0600,1800 [facility] Albuterol Sulfate (Ventolin 0.083% Nebulizer Soln -) 1 amp NEB Q6H PRN PRN Reason: SHORT OF BREATH/WHEEZING Ciprofloxacin (Ciloxan 0.3% Eye Drops -) 2 drop OD TID [facility] Last Admin: 11/15/16 06:31 Dose: 2 drop Azithromycin (Zithromax 500mg Ivpb (Pre-Docked)) 250 mls @ 250 mls/hr IVPB DAILY [facility] Last Admin: 11/15/16 10:49 Dose: 250 mls/hr Aztreonam 1 gm/ Dextrose 50 mls @ 100 mls/hr IVPB BID [facility] PRN Reason: Protocol Last Admin: 11/15/16 09:42 Dose: 100 mls/hr Vancomycin HCl (Vancomycin (Pre-Docked)) 250 mls @ 250 mls/hr IVPB ONCE [facility] PRN Reason: Protocol Last Admin: 11/15/16 07:52 Dose: 250 mls/hr Insulin Aspart (Novolog Vial Sliding Scale -) 1 vial SQ ACHS [facility] PRN Reason: Protocol Last Admin: 11/15/16 14:18 Dose: Not Given Insulin Detemir (Levemir Vial) 40 units SQ AM [facility] Last Admin: 11/15/16 06:32 Dose: 40 units Insulin Detemir (Levemir Vial) 15 units SQ HS [facility] Last Admin: 11/14/16 21:38 Dose: 15 units Warfarin Sodium (Coumadin -) 5 mg PO DAILY@1800 [facility] - Objective Vital Signs: Vital Signs Temperature 98.8 F 11/15/16 11:25 Pulse Rate 62 11/15/16 15:20 Respiratory Rate 18 11/15/16 15:20 Blood Pressure 126/48 11/15/16 15:20 O2 Sat by Pulse Oximetry (%) 92 L 11/15/16 10:47 Constitutional: Yes: No Distress, Calm Eyes: Yes: Conjunctiva Clear, EOM Intact HENT: Yes: Atraumatic, Normocephalic Neck: Yes: Supple, Trachea Midline Cardiovascular: Yes: Pulse Irregular Gastrointestinal: Yes: Normal Bowel Sounds, Soft Edema: No Peripheral Pulses WNL: Yes Labs: CBC, BMP 11/15/16 06:52 11/15/16 08:15 INR, PTT INR 1.46 (0.82-1.09) H 11/15/16 06:52 Problem List - Problems (1) HTN (hypertension) Assessment/Plan: BP is at baseline, will observe for now. No need to repeat CV adorno at this point. Cardiac status is stable. Code(s): I10 - ESSENTIAL (PRIMARY) HYPERTENSION Qualifiers: Hypertension type: essential hypertension Qualified Code(s): I10 - Essential (primary) hypertension (2) Fluid overload Assessment/Plan: euvolemic on examination. HD for fluid removal. Code(s): E87.70 - FLUID OVERLOAD, UNSPECIFIED Qualifiers: Hypervolemia type: unspecified Qualified Code(s): E87.70 - Fluid overload, unspecified (3) Atrial fibrillation Assessment/Plan: continue coumadin for INR 2-3, hold and redose, will need different dose in the setting of sepsis, abx. will see as needed. Please call with questions. Code(s): I48.91 - UNSPECIFIED ATRIAL FIBRILLATION Qualifiers: Atrial fibrillation type: chronic Qualified Code(s): I48.2 - Chronic atrial fibrillation
--- NOTE | 2016-11-15 16:10 | PN ---
Progress Note (short form) - Note Progress Note: alert, nad Vital Signs Period Temp Pulse Resp BP Sys/Prince Pulse Ox Last 24 Hr 98.8 F-99.9 F 58-84 18-28 91-127/43-67 92-98 cor-rrr lungs clear decreased bs at bases abd soft,nt ext no edema CBC, BMP 11/15/16 06:52 11/15/16 08:15 Microbiology 11/12/16 11:21 Blood - Peripheral Venous Blood Culture - Preliminary NO GROWTH OBTAINED AFTER 48 HOURS, INCUBATION TO CONTINUE FOR 3 DAYS. 11/12/16 11:21 Blood - Peripheral Venous Blood Culture - Preliminary NO GROWTH OBTAINED AFTER 48 HOURS, INCUBATION TO CONTINUE FOR 3 DAYS. a/p fever Right lower lobe pneumonia esrd/hd pen allergy continue vanco/azactam/zithromax check vanco trough with next HD
[2016-11-15] MEDS: ALBUTEROL SO4 0.083% IH SOL 2.5 MG/3 ML VIAL.NEB. NEB PRN ×2 (17:35→17:37)
[2016-11-15] MEDS: ACETYLCYSTEINE 20% 200MG/ML 4 ML VIAL *FOR ORAL / INH USE ONLY NEB SCH (17:37)
[2016-11-15] MEDS ORDERED: WARFARIN NA 5 MG TABLET (UD) PO SCH (18:00)
[2016-11-16] MEDS: ACETYLCYSTEINE 20% 200MG/ML 4 ML VIAL *FOR ORAL / INH USE ONLY NEB SCH ×2 (05:16→18:04)
[2016-11-16] MEDS: ALBUTEROL SO4 0.083% IH SOL 2.5 MG/3 ML VIAL.NEB. NEB PRN ×2 (05:17→18:00)
[2016-11-16] MEDS ORDERED: PT OWN MED DRAWER 7, Y5N ONE ×4 (05:55→21:14)
[2016-11-16] MEDS: CIPROFLOXACIN HCL 0.3% OPHTH 2.5ML BOTTLE OD SCH ×3 (05:59→21:24)
[2016-11-16] MEDS: INSULIN SLIDING SCALE (NOVOLOG) 1 VIAL SQ SCH ×4 (06:00→21:24)
[2016-11-16] MEDS: INSULIN DETEMIR 100 UNITS/ML MDV SQ SCH ×2 (06:01→21:25)
[2016-11-16 09:59] LABS: INR 1.6 (0.82-1.09); PROTHROMBIN TIME (PATIENT) 17.8 SEC (9.98-11.88)
[2016-11-16] MEDS: AZTREONAM 1 GM in DEXTROSE 5%-WATER - 50 ML IVPB SCH ×2 (10:26→21:23)
--- NOTE | 2016-11-16 11:12 | PN ---
Progress Note (short form) - Note Progress Note: Resting in NAD. (+) cough. No CP. Afebrile. Intake & Output 11/13/16 11/14/16 11/15/16 11/16/16 23:59 23:59 23:59 23:59 Intake Total 700 900 50 Output Total 0 Balance 700 900 50 Weight 261 lb 258 lb 7 oz 261 lb 3.2 oz Last Vital Signs Temp Pulse Resp BP Pulse Ox 98 F 68 24 115/40 95 11/16/16 10:23 11/16/16 10:23 11/16/16 10:23 11/16/16 10:23 11/15/16 21:00 Active Medications Acetaminophen (Tylenol Suppository -) 650 mg [place] Q6H PRN PRN Reason: FEVER OR PAIN Acetylcysteine (Mucomyst 20 Oral / Inh Use Only*) 800 mg NEB BID@0600,1800 [facility] Last Admin: 11/16/16 05:16 Dose: 800 mg Albuterol Sulfate (Ventolin 0.083% Nebulizer Soln -) 1 amp NEB Q6H PRN PRN Reason: SHORT OF BREATH/WHEEZING Last Admin: 11/16/16 05:17 Dose: 1 amp Ciprofloxacin (Ciloxan 0.3% Eye Drops -) 2 drop OD TID [facility] Last Admin: 11/16/16 05:59 Dose: 2 drop Azithromycin (Zithromax 500mg Ivpb (Pre-Docked)) 250 mls @ 250 mls/hr IVPB DAILY [facility] Last Admin: 11/15/16 10:49 Dose: 250 mls/hr Aztreonam 1 gm/ Dextrose 50 mls @ 100 mls/hr IVPB BID [facility] PRN Reason: Protocol Last Admin: 11/16/16 10:26 Dose: 100 mls/hr Insulin Aspart (Novolog Vial Sliding Scale -) 1 vial SQ ACHS [facility] PRN Reason: Protocol Last Admin: 11/16/16 06:00 Dose: 3 units Insulin Detemir (Levemir Vial) 40 units SQ AM [facility] Last Admin: 11/16/16 06:01 Dose: 40 units Insulin Detemir (Levemir Vial) 15 units SQ HS [facility] Last Admin: 11/15/16 23:18 Dose: 15 units Warfarin Sodium (Coumadin -) 5 mg PO DAILY@1800 [facility] Last Admin: 11/15/16 17:44 Dose: 5 mg Constitutional: Yes: NAD Eyes: Yes: WNL HENT: Yes: WNL Neck: Yes: WNL Cardiovascular: Yes: Pulse Irregular, S1, S2 Respiratory: Yes: Right basilar crackles/rhonchi Gastrointestinal: Yes: Normal Bowel Sounds, Soft Extremities: Yes: WNL Edema: No Labs: Laboratory Results - last 24 hr 11/15/16 11/15/16 11/15/16 06:52 08:15 16:11 INR Creatinine 8.3 H* D POC Glucometer 192 Phosphorus 4.6 Random Vancomycin 11/15/16 11/16/16 11/16/16 23:25 05:58 09:16 INR Creatinine POC Glucometer 182 155 Phosphorus Random Vancomycin 19.268 11/16/16 09:16 INR 1.60 H Creatinine POC Glucometer Phosphorus Random Vancomycin Assessment/Plan Problem List - Problems (1) COPD (chronic obstructive pulmonary disease) Code(s): J44.9 - CHRONIC OBSTRUCTIVE PULMONARY DISEASE, UNSPECIFIED Qualifiers : COPD type: unspecified COPD Qualified Code(s): J44.9 - Chronic obstructive pulmonary disease, unspecified (2) End stage chronic kidney disease Code(s): N18.6 - END STAGE RENAL DISEASE Z99.2 - DEPENDENCE ON RENAL DIALYSIS (3) Fever Code(s): R50.9 - FEVER, UNSPECIFIED Qualifiers: Fever type: unspecified Qualified Code(s): R50.9 - Fever, unspecified (4) Pneumonia Code(s): J18.9 - PNEUMONIA, UNSPECIFIED ORGANISM Qualifiers: Pneumonia type: due to unspecified organism Laterality: right Lung location: lower lobe of lung Qualified Code(s): J18.1 - Lobar pneumonia, unspecified organism (5) ASHD (arteriosclerotic heart disease) Code(s): I25.10 - ATHSCL HEART DISEASE OF [place] CORONARY ARTERY W/O ANG PCTRS (6) Anemia Code(s): D64.9 - ANEMIA, UNSPECIFIED Qualifiers: Anemia type: other cause Other causes of anemia: chronic disease, kidney (7) Atrial fibrillation Code(s): I48.91 - UNSPECIFIED ATRIAL FIBRILLATION Qualifiers: Atrial fibrillation type: chronic Qualified Code(s): I48.2 - Chronic atrial fibrillation (8) Carotid artery disease Code(s): I77.9 - DISORDER OF ARTERIES AND ARTERIOLES, UNSPECIFIED (9) Diabetes Code(s): E11.9 - TYPE 2 DIABETES MELLITUS WITHOUT COMPLICATIONS (10) ESRD (end stage renal disease) on dialysis Code(s): N18.6 - END STAGE RENAL DISEASE Z99.2 - DEPENDENCE ON RENAL DIALYSIS (11) HTN (hypertension) Code(s): I10 - ESSENTIAL (PRIMARY) HYPERTENSION Qualifiers: Hypertension type: essential hypertension Qualified Code(s): I10 - Essential (primary) hypertension (12) Hyperlipidemia Code(s): E78.5 - HYPERLIPIDEMIA, UNSPECIFIED (13) Obesity Code(s): E66.9 - OBESITY, UNSPECIFIED (14) Peripheral artery disease Code(s): I73.9 - PERIPHERAL VASCULAR DISEASE, UNSPECIFIED (15) Pulmonary hypertension Code(s): I27.2 - OTHER SECONDARY PULMONARY HYPERTENSION (16) Breast mass in female Code(s): N63 - UNSPECIFIED LUMP IN BREAST (17) Hypoxia Code(s): R09.02 - HYPOXEMIA Assessment/Plan O2 as needed ABX per ID VTE prophylaxis BD TX HD as per renal Dr Tavarez Problem List - Problems (1) COPD (chronic obstructive pulmonary disease) Code(s): J44.9 - CHRONIC OBSTRUCTIVE PULMONARY DISEASE, UNSPECIFIED Qualifiers : COPD type: unspecified COPD Qualified Code(s): J44.9 - Chronic obstructive pulmonary disease, unspecified (2) End stage chronic kidney disease Code(s): N18.6 - END STAGE RENAL DISEASE Z99.2 - DEPENDENCE ON RENAL DIALYSIS (3) Fever Code(s): R50.9 - FEVER, UNSPECIFIED Qualifiers: Fever type: unspecified Qualified Code(s): R50.9 - Fever, unspecified (4) Pneumonia Code(s): J18.9 - PNEUMONIA, UNSPECIFIED ORGANISM Qualifiers: Pneumonia type: due to unspecified organism Laterality: right Lung location: lower lobe of lung Qualified Code(s): J18.1 - Lobar pneumonia, unspecified organism (5) ASHD (arteriosclerotic heart disease) Code(s): I25.10 - ATHSCL HEART DISEASE OF [place] CORONARY ARTERY W/O ANG PCTRS (6) Anemia Code(s): D64.9 - ANEMIA, UNSPECIFIED Qualifiers: Anemia type: other cause Other causes of anemia: chronic disease, kidney (7) Atrial fibrillation Code(s): I48.91 - UNSPECIFIED ATRIAL FIBRILLATION Qualifiers: Atrial fibrillation type: chronic Qualified Code(s): I48.2 - Chronic atrial fibrillation (8) Carotid artery disease Code(s): I77.9 - DISORDER OF ARTERIES AND ARTERIOLES, UNSPECIFIED (9) Diabetes Code(s): E11.9 - TYPE 2 DIABETES MELLITUS WITHOUT COMPLICATIONS (10) ESRD (end stage renal disease) on dialysis Code(s): N18.6 - END STAGE RENAL DISEASE Z99.2 - DEPENDENCE ON RENAL DIALYSIS (11) HTN (hypertension) Code(s): I10 - ESSENTIAL (PRIMARY) HYPERTENSION Qualifiers: Hypertension type: essential hypertension Qualified Code(s): I10 - Essential (primary) hypertension (12) Hyperlipidemia Code(s): E78.5 - HYPERLIPIDEMIA, UNSPECIFIED (13) Obesity Code(s): E66.9 - OBESITY, UNSPECIFIED (14) Peripheral artery disease Code(s): I73.9 - PERIPHERAL VASCULAR DISEASE, UNSPECIFIED (15) Pulmonary hypertension Code(s): I27.2 - OTHER SECONDARY PULMONARY HYPERTENSION (16) Breast mass in female Code(s): N63 - UNSPECIFIED LUMP IN BREAST
[2016-11-16] MEDS: AZITHROMYCIN IVPB 250 ML IVPB SCH (12:44)
--- NOTE | 2016-11-16 14:58 | PN ---
Progress Note (short form) - Note Progress Note: Renal Follow up for ESRD on HD Pt seen and examined at the bedside awake and alert feels better today denies any pain, SOB, N/V Vital Signs Temperature 98 F 11/16/16 10:23 Pulse Rate 68 11/16/16 10:23 Respiratory Rate 24 11/16/16 10:23 Blood Pressure 115/40 11/16/16 10:23 O2 Sat by Pulse Oximetry (%) 95 11/15/16 21:00 Intake & Output 11/13/16 11/14/16 11/15/16 11/16/16 23:59 23:59 23:59 23:59 Intake Total 700 900 300 Output Total 0 Balance 700 900 300 Weight 261 lb 258 lb 7 oz 261 lb 3.2 oz Gen: NAD HEENT: Right eye erythema improving CVS: RRR, No M/R Lungs: CTA, no rales or wheeze Abd: soft NT/ND Ext: no edema, clubbing or cyanosis CBC, BMP 11/15/16 06:52 11/15/16 08:15 no new labs today Current Medications Acetaminophen (Tylenol Suppository -) 650 mg NE Q6H PRN PRN Reason: FEVER OR PAIN Acetylcysteine (Mucomyst 20 Oral / Inh Use Only*) 800 mg NEB BID@0600,1800 [facility] Last Admin: 11/16/16 05:16 Dose: 800 mg Albuterol Sulfate (Ventolin 0.083% Nebulizer Soln -) 1 amp NEB Q6H PRN PRN Reason: SHORT OF BREATH/WHEEZING Last Admin: 11/16/16 05:17 Dose: 1 amp Ciprofloxacin (Ciloxan 0.3% Eye Drops -) 2 drop OD TID [facility] Last Admin: 11/16/16 14:53 Dose: 2 drop Azithromycin (Zithromax 500mg Ivpb (Pre-Docked)) 250 mls @ 250 mls/hr IVPB DAILY [facility] Last Admin: 11/16/16 12:44 Dose: 250 mls/hr Aztreonam 1 gm/ Dextrose 50 mls @ 100 mls/hr IVPB BID [facility] PRN Reason: Protocol Last Admin: 11/16/16 10:26 Dose: 100 mls/hr Insulin Aspart (Novolog Vial Sliding Scale -) 1 vial SQ ACHS [facility] PRN Reason: Protocol Last Admin: 11/16/16 12:16 Dose: Not Given Insulin Detemir (Levemir Vial) 40 units SQ AM [facility] Last Admin: 11/16/16 06:01 Dose: 40 units Insulin Detemir (Levemir Vial) 15 units SQ HS [facility] Last Admin: 11/15/16 23:18 Dose: 15 units Warfarin Sodium (Coumadin -) 5 mg PO DAILY@1800 [facility] Last Admin: 11/15/16 17:44 Dose: 5 mg A/P 76 year old woman with PMhx of ESRD on HD, DM Type 2, PVD, Afib on Coumadin, Lumbar Radiculpathy who presented with hypertensive emergency from SNF. #Hypertensive emergency/urgency BP stable off antihypertensives #ESRD/Hyperkalemia no indication for dialysis today next treatement is planned for tomorrow #Supratheraputic INR INR is < 2 #Right eye hemorrhage/discharge improving #Anemia s/p PRBC transfusion will continue BRAD with HD #Suspected PNA continue Abx will check Vanco level with dialysis tomorrow and redose as needed Thank you Alon Page DO
[2016-11-16] MEDS ORDERED: VANCOMYCIN 1,000 MG in DEXTROSE 5%-WATER - 250 ML IVPB ONE (15:00)
--- NOTE | 2016-11-16 15:38 | PN ---
Progress Note, Physician - Current Medication List Current Medications: Active Medications Acetaminophen (Tylenol Suppository -) 650 mg [place] Q6H PRN PRN Reason: FEVER OR PAIN Acetylcysteine (Mucomyst 20 Oral / Inh Use Only*) 800 mg NEB BID@0600,1800 [facility] Last Admin: 11/16/16 05:16 Dose: 800 mg Albuterol Sulfate (Ventolin 0.083% Nebulizer Soln -) 1 amp NEB Q6H PRN PRN Reason: SHORT OF BREATH/WHEEZING Last Admin: 11/16/16 05:17 Dose: 1 amp Ciprofloxacin (Ciloxan 0.3% Eye Drops -) 2 drop OD TID [facility] Last Admin: 11/16/16 14:53 Dose: 2 drop Epoetin Denis (Epogen -) 8,000 units IVPUSH ONCE ONE Stop: 11/17/16 08:01 Azithromycin (Zithromax 500mg Ivpb (Pre-Docked)) 250 mls @ 250 mls/hr IVPB DAILY [facility] Last Admin: 11/16/16 12:44 Dose: 250 mls/hr Aztreonam 1 gm/ Dextrose 50 mls @ 100 mls/hr IVPB BID [facility] PRN Reason: Protocol Last Admin: 11/16/16 10:26 Dose: 100 mls/hr Vancomycin HCl 1,000 mg/ (Dextrose) 250 mls @ 250 mls/hr IVPB ONCE ONE PRN Reason: Protocol Stop: 11/16/16 15:59 Insulin Aspart (Novolog Vial Sliding Scale -) 1 vial SQ ACHS [facility] PRN Reason: Protocol Last Admin: 11/16/16 12:16 Dose: Not Given Insulin Detemir (Levemir Vial) 40 units SQ AM [facility] Last Admin: 11/16/16 06:01 Dose: 40 units Insulin Detemir (Levemir Vial) 15 units SQ HS [facility] Last Admin: 11/15/16 23:18 Dose: 15 units Warfarin Sodium (Coumadin -) 5 mg PO DAILY@1800 [facility] Last Admin: 11/15/16 17:44 Dose: 5 mg - Objective Vital Signs: Vital Signs Temperature 98 F 11/16/16 10:23 Pulse Rate 68 11/16/16 10:23 Respiratory Rate 24 11/16/16 10:23 Blood Pressure 115/40 11/16/16 10:23 O2 Sat by Pulse Oximetry (%) 95 11/15/16 21:00 Constitutional: Yes: Well Nourished, No Distress, Calm Cardiovascular: Yes: Regular Rate and Rhythm Respiratory: Yes: Regular Gastrointestinal: Yes: Normal Bowel Sounds Musculoskeletal: Yes: Muscle Weakness (generalized weakness) Edema: No Labs: CBC, BMP 11/15/16 06:52 11/15/16 08:15 INR, PTT INR 1.60 (0.82-1.09) H 11/16/16 09:16 Problem List - Problems (1) End stage chronic kidney disease Assessment/Plan: Supposed to receive HD tomorrow Code(s): N18.6 - END STAGE RENAL DISEASE Z99.2 - DEPENDENCE ON RENAL DIALYSIS (2) Fluid overload Assessment/Plan: BNP even higher, may be relieved by HD. Code(s): E87.70 - FLUID OVERLOAD, UNSPECIFIED Qualifiers: Hypervolemia type: unspecified Qualified Code(s): E87.70 - Fluid overload, unspecified (3) Pneumonia Code(s): J18.9 - PNEUMONIA, UNSPECIFIED ORGANISM Qualifiers: Pneumonia type: due to unspecified organism Laterality: right Lung location: lower lobe of lung Qualified Code(s): J18.1 - Lobar pneumonia, unspecified organism (4) Atrial fibrillation Assessment/Plan: INR-1.6. Warfarin 8 mg today and monitor INR in AM. Code(s): I48.91 - UNSPECIFIED ATRIAL FIBRILLATION Qualifiers: Atrial fibrillation type: chronic Qualified Code(s): I48.2 - Chronic atrial fibrillation (5) Diabetes mellitus, insulin dependent (IDDM), uncontrolled Assessment/Plan: better controlled. Code(s): E10.65 - TYPE 1 DIABETES MELLITUS WITH HYPERGLYCEMIA Qualifiers: Diabetes mellitus complication detail: with chronic kidney disease Chronic kidney disease stage: on chronic dialysis Assessment/Plan ID, Pulmonary, Cardiology consult IV abx Nebs Repeat CXR RLLL pne Physical therapy. BNP is still high HD to take out more fluids CT chest ordered by ID
--- NOTE | 2016-11-16 15:38 | PN ---
Progress Note, Physician Chief Complaint: ID Prominent couph Vancomycin Aztreonam Azithromycin since the November - Current Medication List Current Medications: Active Medications Acetaminophen (Tylenol Suppository -) 650 mg [place] Q6H PRN PRN Reason: FEVER OR PAIN Acetylcysteine (Mucomyst 20 Oral / Inh Use Only*) 800 mg NEB BID@0600,1800 [facility] Last Admin: 11/16/16 05:16 Dose: 800 mg Albuterol Sulfate (Ventolin 0.083% Nebulizer Soln -) 1 amp NEB Q6H PRN PRN Reason: SHORT OF BREATH/WHEEZING Last Admin: 11/16/16 05:17 Dose: 1 amp Ciprofloxacin (Ciloxan 0.3% Eye Drops -) 2 drop OD TID [facility] Last Admin: 11/16/16 14:53 Dose: 2 drop Epoetin Denis (Epogen -) 8,000 units IVPUSH ONCE ONE Stop: 11/17/16 08:01 Azithromycin (Zithromax 500mg Ivpb (Pre-Docked)) 250 mls @ 250 mls/hr IVPB DAILY [facility] Last Admin: 11/16/16 12:44 Dose: 250 mls/hr Aztreonam 1 gm/ Dextrose 50 mls @ 100 mls/hr IVPB BID [facility] PRN Reason: Protocol Last Admin: 11/16/16 10:26 Dose: 100 mls/hr Vancomycin HCl 1,000 mg/ (Dextrose) 250 mls @ 250 mls/hr IVPB ONCE ONE PRN Reason: Protocol Stop: 11/16/16 15:59 Insulin Aspart (Novolog Vial Sliding Scale -) 1 vial SQ ACHS [facility] PRN Reason: Protocol Last Admin: 11/16/16 12:16 Dose: Not Given Insulin Detemir (Levemir Vial) 40 units SQ AM [facility] Last Admin: 11/16/16 06:01 Dose: 40 units Insulin Detemir (Levemir Vial) 15 units SQ HS [facility] Last Admin: 11/15/16 23:18 Dose: 15 units Warfarin Sodium (Coumadin -) 5 mg PO DAILY@1800 [facility] Last Admin: 11/15/16 17:44 Dose: 5 mg - Objective Vital Signs: Vital Signs Temperature 98 F 11/16/16 10:23 Pulse Rate 68 11/16/16 10:23 Respiratory Rate 24 11/16/16 10:23 Blood Pressure 115/40 11/16/16 10:23 O2 Sat by Pulse Oximetry (%) 95 11/15/16 21:00 Constitutional: Yes: No Distress Neck: Yes: WNL, Supple Cardiovascular: Yes: S1, S2 Respiratory: Yes: WNL, Regular, CTA Bilaterally, Diminished, Rales Gastrointestinal: Yes: Soft. No: Tenderness, Tenderness, Epigastrium Edema: No Labs: CBC, BMP 11/15/16 06:52 11/15/16 08:15 INR, PTT INR 1.60 (0.82-1.09) H 11/16/16 09:16 Problem List - Problems (1) Fever Code(s): R50.9 - FEVER, UNSPECIFIED Qualifiers: Qualified Code(s): R50.9 - Fever, unspecified (2) Pneumonia Code(s): J18.9 - PNEUMONIA, UNSPECIFIED ORGANISM Qualifiers: Qualified Code(s): J18.1 - Lobar pneumonia, unspecified organism (3) End stage chronic kidney disease Code(s): N18.6 - END STAGE RENAL DISEASE Z99.2 - DEPENDENCE ON RENAL DIALYSIS Assessment/Plan Microbiology 11/13/16 15:15 Sputum - Expectorated Gram Stain - Final 11/13/16 15:15 Sputum - Expectorated Sputum Culture - Final NORMAL RESPIRATORY [facility] 11/12/16 11:21 Blood - Peripheral Venous Blood Culture - Preliminary NO GROWTH OBTAINED AFTER 96 HOURS, INCUBATION TO CONTINUE FOR 1 DAYS. 11/12/16 11:21 Blood - Peripheral Venous Blood Culture - Preliminary NO GROWTH OBTAINED AFTER 96 HOURS, INCUBATION TO CONTINUE FOR 1 DAYS. Laboratory Tests 11/15/16 11/16/16 06:52 09:16 WBC 9.8 Hgb 8.7 L Hct 26.9 L Plt Count 139 Random Vancomycin 19.268 Assessment Pneumonia ESRD Unspecifed Plan Continue antibiotics Obtain chest CT Britney ESPINOZA
[2016-11-16] MEDS: WARFARIN NA 2 MG TABLET (UD) PO SCH (17:58)
[2016-11-16] MEDS: LACTULOSE 20 GM/30 ML UDC (FOR ORAL USE ONLY) PO PRN (21:25)
[2016-11-17] MEDS: INSULIN SLIDING SCALE (NOVOLOG) 1 VIAL SQ SCH ×4 (06:04→22:41)
[2016-11-17] MEDS: CIPROFLOXACIN HCL 0.3% OPHTH 2.5ML BOTTLE OD SCH ×3 (06:04→22:40)
[2016-11-17] MEDS: INSULIN DETEMIR 100 UNITS/ML MDV SQ SCH ×2 (06:04→22:41)
[2016-11-17] MEDS: ACETYLCYSTEINE 20% 200MG/ML 4 ML VIAL *FOR ORAL / INH USE ONLY NEB SCH ×2 (06:57→17:34)
[2016-11-17] MEDS: ALBUTEROL SO4 0.083% IH SOL 2.5 MG/3 ML VIAL.NEB. NEB PRN ×3 (06:58→22:49)
[2016-11-17 07:46] LABS: INR 1.54 (0.82-1.09); PROTHROMBIN TIME (PATIENT) 17.1 SEC (9.98-11.88)
--- NOTE | 2016-11-17 09:28 | PN ---
Progress Note, Physician Chief Complaint: ID Vancomycin Aztreonam Azithromycin day 5 therapy Cuph but no fever - Current Medication List Current Medications: Active Medications Acetaminophen (Tylenol Suppository -) 650 mg ID Q6H PRN PRN Reason: FEVER OR PAIN Acetylcysteine (Mucomyst 20 Oral / Inh Use Only*) 800 mg NEB BID@0600,1800 [facility] Last Admin: 11/17/16 06:57 Dose: 800 mg Albuterol Sulfate (Ventolin 0.083% Nebulizer Soln -) 1 amp NEB Q6H PRN PRN Reason: SHORT OF BREATH/WHEEZING Last Admin: 11/17/16 06:58 Dose: 1 amp Ciprofloxacin (Ciloxan 0.3% Eye Drops -) 2 drop OD TID [facility] Last Admin: 11/17/16 06:04 Dose: 2 drop Epoetin Denis (Epogen -) 8,000 units IVPUSH ONCE ONE Stop: 11/17/16 08:01 Azithromycin (Zithromax 500mg Ivpb (Pre-Docked)) 250 mls @ 250 mls/hr IVPB DAILY [facility] Last Admin: 11/16/16 12:44 Dose: 250 mls/hr Aztreonam 1 gm/ Dextrose 50 mls @ 100 mls/hr IVPB BID [facility] PRN Reason: Protocol Last Admin: 11/16/16 21:23 Dose: 100 mls/hr Vancomycin HCl 1,000 mg/ (Dextrose) 250 mls @ 250 mls/hr IVPB ONCE ONE PRN Reason: Protocol Stop: 11/16/16 15:59 Insulin Aspart (Novolog Vial Sliding Scale -) 1 vial SQ ACHS [facility] PRN Reason: Protocol Last Admin: 11/17/16 06:04 Dose: Not Given Insulin Detemir (Levemir Vial) 40 units SQ AM [facility] Last Admin: 11/17/16 06:04 Dose: Not Given Insulin Detemir (Levemir Vial) 15 units SQ HS [facility] Last Admin: 11/16/16 21:25 Dose: 15 units Lactulose (Cephulac (Oral Use)) 20 gm PO DAILY [facility] Last Admin: 11/16/16 21:25 Dose: 20 gm Warfarin Sodium (Coumadin -) 8 mg PO DAILY@1800 [facility] Last Admin: 11/16/16 17:58 Dose: 8 mg - Objective Vital Signs: Vital Signs Temperature 97.8 F 11/17/16 09:02 Pulse Rate 80 11/17/16 09:02 Respiratory Rate 24 11/17/16 09:02 Blood Pressure 103/44 11/17/16 09:02 O2 Sat by Pulse Oximetry (%) 97 11/16/16 21:00 Constitutional: Yes: Well Nourished, No Distress Neck: Yes: WNL, Supple Cardiovascular: Yes: S1, S2 Respiratory: Yes: WNL, Regular, CTA Bilaterally Gastrointestinal: Yes: Soft. No: Tenderness Labs: CBC, BMP 11/15/16 06:52 11/15/16 08:15 INR, PTT INR 1.54 (0.82-1.09) H 11/17/16 06:40 Problem List - Problems (1) Fever Code(s): R50.9 - FEVER, UNSPECIFIED Qualifiers: Fever type: unspecified Qualified Code(s): R50.9 - Fever, unspecified (2) Pneumonia Code(s): J18.9 - PNEUMONIA, UNSPECIFIED ORGANISM Qualifiers: Pneumonia type: due to unspecified organism Laterality: right Lung location: lower lobe of lung Qualified Code(s): J18.1 - Lobar pneumonia, unspecified organism (3) End stage chronic kidney disease Code(s): N18.6 - END STAGE RENAL DISEASE Z99.2 - DEPENDENCE ON RENAL DIALYSIS Assessment/Plan Microbiology 11/13/16 15:15 Sputum - Expectorated Gram Stain - Final 11/13/16 15:15 Sputum - Expectorated Sputum Culture - Final NORMAL RESPIRATORY [facility] 11/12/16 11:21 Blood - Peripheral Venous Blood Culture - Preliminary NO GROWTH OBTAINED AFTER 96 HOURS, INCUBATION TO CONTINUE FOR 1 DAYS. 11/12/16 11:21 Blood - Peripheral Venous Blood Culture - Preliminary NO GROWTH OBTAINED AFTER 96 HOURS, INCUBATION TO CONTINUE FOR 1 DAYS. Laboratory Tests 11/15/16 11/17/16 06:52 06:40 WBC 9.8 Hgb 8.7 L Plt Count 139 Neutrophils % 64.0 Monocytes % 12.0 H Random Vancomycin 19.319 Assessment Pneumonia unspecified etiology day 6 antibiotics Vanco level high still CT reviewed with lower lob infiltrates no cavitation Plan Consider oral levofloxacin 250mg every other day for 1 or 2 mores doses Britney ESPINOZA
[2016-11-17] MEDS: AZTREONAM 1 GM in DEXTROSE 5%-WATER - 50 ML IVPB SCH ×2 (10:00→22:40)
[2016-11-17] MEDS: AZITHROMYCIN IVPB 250 ML IVPB SCH ×2 (10:00→15:23)
[2016-11-17 10:26] LABS: MCH 29.9 pg (25.7-33.7); MEAN CELL VOLUME 93.5 fl (80-96); MEAN PLT VOLUME 9.3 fl (7.5-11.1); PLATELET COUNT 162 K/MM3 (134-434); RDW 15.7 % (11.6-15.6); WHITE BLOOD COUNT 8.6 K/mm3 (4.0-10.0)
[2016-11-17] MEDS ORDERED: EPOETIN ALFA 10,000 UNIT/1 ML VIAL IVPUSH ONE (11:00)
[2016-11-17 11:09] LABS: ANION GAP 12 (8-16); CALCIUM 8.8 mg/dL (8.5-10.1); CO2 27 mmol/L (21-32); GLUCOSE,RANDOM 260 mg/dL (74-106); PHOSPHOROUS 4.2 mg/dL (2.5-4.9)
[2016-11-17 11:19] LABS: CREATININE 7.8 mg/dL (0.55-1.02)
[2016-11-17] MEDS ORDERED: VANCOMYCIN 500 MG in DEXTROSE 5%-WATER - 100 ML IVPB ONE (11:46)
--- NOTE | 2016-11-17 12:05 | PN ---
Progress Note (short form) - Note Progress Note: Renal Follow up for ESRD on HD Pt seen and examined during dialysis BP stable, pt without complaints AVF with good flow Goal UF is 2-2.5L Vanco level is 17 Vital Signs Temperature 98.7 F 11/17/16 09:30 Pulse Rate 85 11/17/16 11:05 Respiratory Rate 18 11/17/16 11:05 Blood Pressure 144/57 11/17/16 11:05 O2 Sat by Pulse Oximetry (%) 97 11/16/16 21:00 Intake & Output 11/14/16 11/15/16 11/16/16 11/17/16 23:59 23:59 23:59 23:59 Intake Total 700 900 750 50 Output Total 0 Balance 700 900 750 50 Weight 258 lb 7 oz 261 lb 3.2 oz 263 lb Gen: NAD HEENT: Right eye erythema improving CVS: RRR, No M/R Lungs: CTA, no rales or wheeze Abd: soft NT/ND Ext: no edema, clubbing or cyanosis CBC, BMP 11/17/16 09:35 11/17/16 09:35 Laboratory Tests 11/15/16 11/17/16 08:15 09:35 Calcium 8.8 8.8 Phosphorus 4.2 Albumin 2.2 L Current Medications Acetaminophen (Tylenol Suppository -) 650 mg [place] Q6H PRN PRN Reason: FEVER OR PAIN Acetylcysteine (Mucomyst 20 Oral / Inh Use Only*) 800 mg NEB BID@0600,1800 [facility] Last Admin: 11/17/16 06:57 Dose: 800 mg Albuterol Sulfate (Ventolin 0.083% Nebulizer Soln -) 1 amp NEB Q6H PRN PRN Reason: SHORT OF BREATH/WHEEZING Last Admin: 11/17/16 06:58 Dose: 1 amp Ciprofloxacin (Ciloxan 0.3% Eye Drops -) 2 drop OD TID [facility] Last Admin: 11/17/16 06:04 Dose: 2 drop Azithromycin (Zithromax 500mg Ivpb (Pre-Docked)) 250 mls @ 250 mls/hr IVPB DAILY [facility] Last Admin: 11/16/16 12:44 Dose: 250 mls/hr Aztreonam 1 gm/ Dextrose 50 mls @ 100 mls/hr IVPB BID [facility] PRN Reason: Protocol Last Admin: 11/16/16 21:23 Dose: 100 mls/hr Vancomycin HCl 500 mg/ (Dextrose) 100 mls @ 250 mls/hr IVPB ONCE ONE PRN Reason: Protocol Stop: 11/17/16 12:09 Insulin Aspart (Novolog Vial Sliding Scale -) 1 vial SQ ACHS [facility] PRN Reason: Protocol Last Admin: 11/17/16 06:04 Dose: Not Given Insulin Detemir (Levemir Vial) 40 units SQ AM [facility] Last Admin: 11/17/16 06:04 Dose: Not Given Insulin Detemir (Levemir Vial) 15 units SQ HS [facility] Last Admin: 11/16/16 21:25 Dose: 15 units Lactulose (Cephulac (Oral Use)) 20 gm PO DAILY PRN Last Admin: 11/16/16 21:25 Dose: 20 gm Warfarin Sodium (Coumadin -) 8 mg PO DAILY@1800 [facility] Last Admin: 11/16/16 17:58 Dose: 8 mg A/P 76 year old woman with PMhx of ESRD on HD, DM Type 2, PVD, Afib on Coumadin, Lumbar Radiculpathy who presented with hypertensive emergency from SNF. #Hypertensive emergency/urgency BP stable off antihypertensives #ESRD/Hyperkalemia tolerating dialysis today UF as tolerated #Supratheraputic INR INR is < 2 #Right eye hemorrhage/discharge improving #Anemia s/p PRBC transfusion will continue BRAD with HD #Suspected PNA continue Abx redose vanco 500mg following HD to finish course of Abx with oral levaquin as per ID Thank you Alon Page DO
--- NOTE | 2016-11-17 13:24 | PN ---
Progress Note, Physician History of Present Illness: pulmonary alert,feeling better,dyspnea improving,+cough,on dialysis - Current Medication List Current Medications: Active Medications Acetaminophen (Tylenol Suppository -) 650 mg [place] Q6H PRN PRN Reason: FEVER OR PAIN Acetylcysteine (Mucomyst 20 Oral / Inh Use Only*) 800 mg NEB BID@0600,1800 [facility] Last Admin: 11/17/16 06:57 Dose: 800 mg Albuterol Sulfate (Ventolin 0.083% Nebulizer Soln -) 1 amp NEB Q6H PRN PRN Reason: SHORT OF BREATH/WHEEZING Last Admin: 11/17/16 06:58 Dose: 1 amp Ciprofloxacin (Ciloxan 0.3% Eye Drops -) 2 drop OD TID [facility] Last Admin: 11/17/16 06:04 Dose: 2 drop Azithromycin (Zithromax 500mg Ivpb (Pre-Docked)) 250 mls @ 250 mls/hr IVPB DAILY [facility] Last Admin: 11/16/16 12:44 Dose: 250 mls/hr Aztreonam 1 gm/ Dextrose 50 mls @ 100 mls/hr IVPB BID [facility] PRN Reason: Protocol Last Admin: 11/16/16 21:23 Dose: 100 mls/hr Insulin Aspart (Novolog Vial Sliding Scale -) 1 vial SQ ACHS [facility] PRN Reason: Protocol Last Admin: 11/17/16 12:08 Dose: 2 units Insulin Detemir (Levemir Vial) 40 units SQ AM [facility] Last Admin: 11/17/16 06:04 Dose: Not Given Insulin Detemir (Levemir Vial) 15 units SQ HS [facility] Last Admin: 11/16/16 21:25 Dose: 15 units Lactulose (Cephulac (Oral Use)) 20 gm PO DAILY PRN Last Admin: 11/16/16 21:25 Dose: 20 gm Warfarin Sodium (Coumadin -) 8 mg PO DAILY@1800 [facility] Last Admin: 11/16/16 17:58 Dose: 8 mg - Objective Vital Signs: Vital Signs Temperature 98.7 F 11/17/16 09:30 Pulse Rate 66 11/17/16 13:02 Respiratory Rate 18 11/17/16 13:02 Blood Pressure 115/48 11/17/16 13:02 O2 Sat by Pulse Oximetry (%) 97 11/16/16 21:00 Constitutional: Yes: Calm, Obese Eyes: Yes: WNL HENT: Yes: WNL Neck: Yes: WNL Cardiovascular: Yes: Pulse Irregular, S1, S2 Respiratory: Yes: Diminished Gastrointestinal: Yes: Normal Bowel Sounds, Soft Extremities: Yes: WNL Edema: Yes Labs: CBC, BMP 11/17/16 09:35 11/17/16 09:35 INR, PTT INR 1.54 (0.82-1.09) H 11/17/16 06:40 - ....Imaging Cat Scan: Report Reviewed, Image Reviewed (bibasilar consolidations) Problem List - Problems (1) Hypoxia Code(s): R09.02 - HYPOXEMIA Assessment/Plan Problem List - Problems (1) COPD (chronic obstructive pulmonary disease) Code(s): J44.9 - CHRONIC OBSTRUCTIVE PULMONARY DISEASE, UNSPECIFIED Qualifiers : COPD type: unspecified COPD Qualified Code(s): J44.9 - Chronic obstructive pulmonary disease, unspecified (2) End stage chronic kidney disease Code(s): N18.6 - END STAGE RENAL DISEASE Z99.2 - DEPENDENCE ON RENAL DIALYSIS (3) Fever Code(s): R50.9 - FEVER, UNSPECIFIED Qualifiers: Fever type: unspecified Qualified Code(s): R50.9 - Fever, unspecified (4) Pneumonia Code(s): J18.9 - PNEUMONIA, UNSPECIFIED ORGANISM Qualifiers: Pneumonia type: due to unspecified organism Laterality: right Lung location: lower lobe of lung Qualified Code(s): J18.1 - Lobar pneumonia, unspecified organism (5) ASHD (arteriosclerotic heart disease) Code(s): I25.10 - ATHSCL HEART DISEASE OF [place] CORONARY ARTERY W/O ANG PCTRS (6) Anemia Code(s): D64.9 - ANEMIA, UNSPECIFIED Qualifiers: Anemia type: other cause Other causes of anemia: chronic disease, kidney (7) Atrial fibrillation Code(s): I48.91 - UNSPECIFIED ATRIAL FIBRILLATION Qualifiers: Atrial fibrillation type: chronic Qualified Code(s): I48.2 - Chronic atrial fibrillation (8) Carotid artery disease Code(s): I77.9 - DISORDER OF ARTERIES AND ARTERIOLES, UNSPECIFIED (9) Diabetes Code(s): E11.9 - TYPE 2 DIABETES MELLITUS WITHOUT COMPLICATIONS (10) ESRD (end stage renal disease) on dialysis Code(s): N18.6 - END STAGE RENAL DISEASE Z99.2 - DEPENDENCE ON RENAL DIALYSIS (11) HTN (hypertension) Code(s): I10 - ESSENTIAL (PRIMARY) HYPERTENSION Qualifiers: Hypertension type: essential hypertension Qualified Code(s): I10 - Essential (primary) hypertension (12) Hyperlipidemia Code(s): E78.5 - HYPERLIPIDEMIA, UNSPECIFIED (13) Obesity Code(s): E66.9 - OBESITY, UNSPECIFIED (14) Peripheral artery disease Code(s): I73.9 - PERIPHERAL VASCULAR DISEASE, UNSPECIFIED (15) Pulmonary hypertension Code(s): I27.2 - OTHER SECONDARY PULMONARY HYPERTENSION (16) Breast mass in female Code(s): N63 - UNSPECIFIED LUMP IN BREAST Assessment/Plan PLAN: O2 as needed ABX per ID VTE prophylaxis BD TX as ordered HD as per renal DR LEVINE
[2016-11-17] MEDS ORDERED: PT OWN MED DRAWER 7, Y5N ONE ×2 (14:37→15:33)
--- NOTE | 2016-11-17 15:06 | PN ---
Progress Note, Physician Chief Complaint: SOB, High blood pressure. History of Present Illness: Originally came in with PNE, pleural effusions, CHF, uncontrolled diabetes, abnormal anticoagulation. - Current Medication List Current Medications: Active Medications Acetaminophen (Tylenol Suppository -) 650 mg [place] Q6H PRN PRN Reason: FEVER OR PAIN Acetylcysteine (Mucomyst 20 Oral / Inh Use Only*) 800 mg NEB BID@0600,1800 [facility] Last Admin: 11/17/16 06:57 Dose: 800 mg Albuterol Sulfate (Ventolin 0.083% Nebulizer Soln -) 1 amp NEB Q6H PRN PRN Reason: SHORT OF BREATH/WHEEZING Last Admin: 11/17/16 06:58 Dose: 1 amp Ciprofloxacin (Ciloxan 0.3% Eye Drops -) 2 drop OD TID [facility] Last Admin: 11/17/16 06:04 Dose: 2 drop Azithromycin (Zithromax 500mg Ivpb (Pre-Docked)) 250 mls @ 250 mls/hr IVPB DAILY [facility] Last Admin: 11/17/16 10:00 Dose: Not Given Aztreonam 1 gm/ Dextrose 50 mls @ 100 mls/hr IVPB BID [facility] PRN Reason: Protocol Last Admin: 11/17/16 10:00 Dose: Not Given Insulin Aspart (Novolog Vial Sliding Scale -) 1 vial SQ ACHS [facility] PRN Reason: Protocol Last Admin: 11/17/16 12:08 Dose: 2 units Insulin Detemir (Levemir Vial) 40 units SQ AM [facility] Last Admin: 11/17/16 06:04 Dose: Not Given Insulin Detemir (Levemir Vial) 15 units SQ HS [facility] Last Admin: 11/16/16 21:25 Dose: 15 units Lactulose (Cephulac (Oral Use)) 20 gm PO DAILY [facility]N Last Admin: 11/16/16 21:25 Dose: 20 gm Warfarin Sodium (Coumadin -) 8 mg PO DAILY@1800 [facility] Last Admin: 11/16/16 17:58 Dose: 8 mg - Objective Vital Signs: Vital Signs Temperature 98.7 F 11/17/16 09:30 Pulse Rate 81 11/17/16 13:25 Respiratory Rate 18 11/17/16 13:25 Blood Pressure 121/50 11/17/16 13:25 O2 Sat by Pulse Oximetry (%) 97 11/16/16 21:00 Constitutional: Yes: Well Nourished, No Distress, Calm Cardiovascular: Yes: Regular Rate and Rhythm Respiratory: Yes: Regular Gastrointestinal: Yes: Normal Bowel Sounds Neurological: Yes: Alert, Oriented Labs: CBC, BMP 11/17/16 09:35 11/17/16 09:35 INR, PTT INR 1.54 (0.82-1.09) H 11/17/16 06:40 Problem List - Problems (1) End stage chronic kidney disease Assessment/Plan: HD TODAY Code(s): N18.6 - END STAGE RENAL DISEASE Z99.2 - DEPENDENCE ON RENAL DIALYSIS (2) Fluid overload Code(s): E87.70 - FLUID OVERLOAD, UNSPECIFIED Qualifiers: Hypervolemia type: unspecified Qualified Code(s): E87.70 - Fluid overload, unspecified (3) Pneumonia Assessment/Plan: IV abx, ID and pulmonary consult, nebulizer tx, chest physioptherapy. D/C ON LEVAQUIN 250 MG 1 TAB Q48H FOR 2 DOSES. Code(s): J18.9 - PNEUMONIA, UNSPECIFIED ORGANISM Qualifiers: Pneumonia type: due to unspecified organism Laterality: right Lung location: lower lobe of lung Qualified Code(s): J18.1 - Lobar pneumonia, unspecified organism (4) Atrial fibrillation Assessment/Plan: INR-1.6. Warfarin 8 mg today and monitor INR in AM. Code(s): I48.91 - UNSPECIFIED ATRIAL FIBRILLATION Qualifiers: Atrial fibrillation type: chronic Qualified Code(s): I48.2 - Chronic atrial fibrillation (5) Diabetes mellitus, insulin dependent (IDDM), uncontrolled Code(s): E10.65 - TYPE 1 DIABETES MELLITUS WITH HYPERGLYCEMIA Qualifiers: Diabetes mellitus complication detail: with chronic kidney disease Chronic kidney disease stage: on chronic dialysis Assessment/Plan LEVAQUIN 250 MG Q48H FOR ANOTHER 2 DOSES INR CHECK IN 1 WEEK HD PER RENAL D/C TO [facility]
[2016-11-17] MEDS: LACTULOSE 20 GM/30 ML UDC (FOR ORAL USE ONLY) PO PRN (15:35)
--- NOTE | 2016-11-17 16:20 | DS ---
Physical Examination Vital Signs: Vital Signs Temperature 98.1 F 11/17/16 15:40 Pulse Rate 72 11/17/16 15:40 Respiratory Rate 19 11/17/16 15:40 Blood Pressure 90/53 11/17/16 15:40 O2 Sat by Pulse Oximetry (%) 97 11/16/16 21:00 Constitutional: Yes: Well Nourished, No Distress, Calm Cardiovascular: Yes: Pulse Irregular Respiratory: Yes: Regular Gastrointestinal: Yes: Normal Bowel Sounds Edema: Yes Edema: LLE: Trace, RLE: Trace Peripheral Pulses WNL: No Neurological: Yes: Alert, Oriented Labs: CBC, BMP 11/17/16 09:35 11/17/16 09:35 Discharge Summary Reason For Visit: PNEUMONIA,COPD Current Active Problems COPD (chronic obstructive pulmonary disease) (Acute) Colitis (Acute) End stage chronic kidney disease (Acute) Fever (Acute) Fluid overload (Acute) Hypoxia (Acute) Pneumonia (Acute) Hospital Course: 76 yo F with pmh of CVA, AFIB, HLD, COPD, Constipation, ESRD on HD, Hypotension (emma after HD), DM, Anemia, who presents to ER due to HTN urgency. Yesterday when patient abruptly stood out of bed, she felt very dizzy. NH staff measured her BP to be 240 systolic. EMS was called, patient was given a nitro patch, which decreased TYRON to 115 systolic and then to 90 systolic, which is her baseline. Patient denied chest pain, h/a, palpitations or any focal neuro findings. Per family, she has been coughing for several weeks and had a pulse ox of low 80's a few days ago, for which she was placed on NC O2. She is anuric and get HD MWF. During the hospital course, She was diagnosed with Pleural effusions and PNE for which she was treated with IV abx and increased volumes taken out dueing HD. She continued to improve, was provided physical therapy which should continued during her transition to SNF. Condition: Stable - Instructions Diet, Activity, Other Instructions: RENAL DIET LEVAQUIN 250 1 TAB TOMORROW AND THEN IN 48 HOURS. PHYSICAL THERAPY Referrals: Kishore David MD [Primary Care Provider] - Disposition: INTERMEDIATE FACILITY - Home Medications Comprehensive Discharge Medication List: Ambulatory Orders Aa/Hydrolyzed Collagen, Whey [Lps Neutral Flavor Liquid] 30 ml PO BID 11/12/16 Acetaminophen [Tylenol] 325 mg PO Q4H 11/12/16 Aspirin [ASA -] 81 mg PO DAILY 11/12/16 Atorvastatin Ca [Lipitor] 40 mg PO HS 11/12/16 Digoxin [Lanoxin -] 0.125 mg PO DAILY 11/12/16 Docusate Sodium [Colace -] 100 mg PO BID 11/12/16 Guaifenesin Dm [Robitussin Dm -] 10 ml PO Q4H PRN 11/12/16 Insulin Detemir [Levemir Flextouch] 15 unit SQ BID 11/12/16 Insulin Lispro [Humalog] 0 units SCJ ACHS 11/12/16 Metoprolol Succinate [Toprol XL -] 25 mg PO DAILY 11/12/16 Nitroglycerin Patch [Nitro-Dur Patch -] 0.2 mg TD DAILY PRN 11/12/16 Ondansetron [Zofran *Odt*] 4 mg SL DAILY 11/12/16 Oxycodone HCl [Oxycontin] 10 mg PO Q6H 11/12/16 Psyllium Husk (with Sugar) [Metamucil Packet] 3.4 gm PO Q48H 11/12/16 Sennosides [Senna] 8.6 mg PO HS 11/12/16 Sevelamer Carbonate [Renvela -] 2,400 mg PO TID 11/12/16 Sodium Chloride [Saline Mist] 2 drop NS DAILY 11/12/16 Warfarin Sodium [Coumadin] 8 mg PO DAILY 11/12/16 Albuterol 0.083% Nebulizer Heidi [Ventolin 0.083% Nebulizer Soln -] 1 amp NEB Q6H PRN #0 amp 11/17/16 Levofloxacin [Levaquin -] 500 mg PO Q48H #2 tablet 11/17/16
[2016-11-17] MEDS ORDERED: WARFARIN NA 10 MG TABLET (FP) PO ONE (18:00)
[2016-11-17] MEDS: WARFARIN NA 10 MG TABLET (FP) PO ONE (18:05)
[2016-11-17] MEDS: WARFARIN NA 2 MG TABLET (UD) PO SCH (18:05)
--- NOTE | 2016-11-17 23:22 | PN ---
Progress Note (short form) - Note Progress Note: breathing improved still mild cough bs controlled no hypoglycemia Abnormal Lab Results 11/17/16 11/17/16 11/17/16 06:40 09:35 09:35 RBC 2.99 L Hgb 9.0 L Hct 28.0 L RDW 15.7 H INR 1.54 H BUN 39 H Creatinine 7.8 H* Random Glucose 260 H D Vancomycin Pre-Dose 11/17/16 09:35 RBC Hgb Hct RDW INR BUN Creatinine Random Glucose Vancomycin Pre-Dose 17.972 H* Laboratory Results - last 24 hr 11/17/16 11/17/16 11/17/16 06:03 06:40 06:40 WBC RBC Hgb Hct MCV MCHC RDW Plt Count MPV INR 1.54 H Sodium Potassium Chloride Carbon Dioxide Anion Gap BUN Creatinine POC Glucometer 56 Random Glucose Calcium Phosphorus Random Vancomycin 19.319 Vancomycin Pre-Dose Blood Type Antibody Screen 11/17/16 11/17/16 11/17/16 06:51 09:35 09:35 WBC 8.6 RBC 2.99 L Hgb 9.0 L Hct 28.0 L MCV 93.5 MCHC 32.0 RDW 15.7 H Plt Count 162 MPV 9.3 INR Sodium 137 Potassium 4.2 Chloride 98 Carbon Dioxide 27 Anion Gap 12 BUN 39 H Creatinine 7.8 H* POC Glucometer 77 Random Glucose 260 H D Calcium 8.8 Phosphorus 4.2 Random Vancomycin Vancomycin Pre-Dose Blood Type Antibody Screen 11/17/16 11/17/16 11/17/16 09:35 09:35 12:00 WBC RBC Hgb Hct MCV MCHC RDW Plt Count MPV INR Sodium Potassium Chloride Carbon Dioxide Anion Gap BUN Creatinine POC Glucometer 202 Random Glucose Calcium Phosphorus Random Vancomycin Vancomycin Pre-Dose 17.972 H* Blood Type O POSITIVE Antibody Screen Negative 11/17/16 11/17/16 17:36 21:20 WBC RBC Hgb Hct MCV MCHC RDW Plt Count MPV INR Sodium Potassium Chloride Carbon Dioxide Anion Gap BUN Creatinine POC Glucometer 294 245 Random Glucose Calcium Phosphorus Random Vancomycin Vancomycin Pre-Dose Blood Type Antibody Screen Current Active Problems COPD (chronic obstructive pulmonary disease) (Acute) Colitis (Acute) End stage chronic kidney disease (Acute) Fever (Acute) Fluid overload (Acute) Hypoxia (Acute) Pneumonia (Acute) dm hyperglycemia plan continue Current Medications Generic Name Dose Route Start Last Admin Trade Name Freq PRN Reason Stop Dose Admin Acetaminophen 650 mg 11/12/16 17:31 Tylenol Suppository - [place] Q6H PRN FEVER OR PAIN Acetylcysteine 800 mg 11/15/16 18:00 11/17/16 17:34 Mucomyst 20 Oral / Inh Use Only* NEB 800 mg BID@0600,1800 [facility] Administration Albuterol Sulfate 1 amp 11/15/16 11:45 11/17/16 22:49 Ventolin 0.083% Nebulizer Soln - NEB 1 amp Q6H PRN Administration SHORT OF BREATH/WHEEZING Ciprofloxacin 2 drop 11/14/16 14:00 11/17/16 22:40 Ciloxan 0.3% Eye Drops - OD 2 drop TID [facility] Administration Azithromycin 250 mls @ 250 mls/hr 11/13/16 10:45 11/17/16 15:23 Zithromax 500mg Ivpb (Pre-Docked) IVPB 250 mls/hr DAILY [facility] Administration Aztreonam 1 gm/ Dextrose 50 mls @ 100 mls/hr 11/13/16 10:45 11/17/16 22:40 IVPB 100 mls/hr BID [facility] Administration Protocol Insulin Aspart 1 vial 11/13/16 07:00 11/17/16 22:41 Novolog Vial Sliding Scale - SQ 4 units ACHS [facility] Administration Protocol Insulin Detemir 40 units 11/13/16 07:00 11/17/16 06:04 Levemir Vial SQ Not Given AM [facility] Insulin Detemir 15 units 11/13/16 22:00 11/17/16 22:41 Levemir Vial SQ 15 units HS [facility] Administration Lactulose 20 gm 11/16/16 19:42 11/17/16 15:35 Cephulac (Oral Use) PO 20 gm DAILY PRN Administration Warfarin Sodium 8 mg 11/16/16 18:00 11/17/16 18:05 Coumadin - PO Not Given DAILY@1800 [facility] Problem List - Problems (1) Pneumonia Code(s): J18.9 - PNEUMONIA, UNSPECIFIED ORGANISM Qualifiers: Pneumonia type: due to unspecified organism Laterality: right Lung location: lower lobe of lung Qualified Code(s): J18.1 - Lobar pneumonia, unspecified organism (2) ASHD (arteriosclerotic heart disease) Code(s): I25.10 - ATHSCL HEART DISEASE OF [place] CORONARY ARTERY W/O ANG PCTRS (3) Atrial fibrillation Code(s): I48.91 - UNSPECIFIED ATRIAL FIBRILLATION Qualifiers: Atrial fibrillation type: chronic Qualified Code(s): I48.2 - Chronic atrial fibrillation (4) Type 2 diabetes mellitus with diabetic chronic kidney disease Code(s): E11.22 - TYPE 2 DIABETES MELLITUS W DIABETIC CHRONIC KIDNEY DISEASE
[2016-11-18] MEDS: INSULIN SLIDING SCALE (NOVOLOG) 1 VIAL SQ SCH ×4 (06:45→21:39)
[2016-11-18] MEDS: ALBUTEROL SO4 0.083% IH SOL 2.5 MG/3 ML VIAL.NEB. NEB PRN (06:45)
[2016-11-18] MEDS: ACETYLCYSTEINE 20% 200MG/ML 4 ML VIAL *FOR ORAL / INH USE ONLY NEB SCH ×2 (06:45→17:43)
[2016-11-18] MEDS: INSULIN DETEMIR 100 UNITS/ML MDV SQ SCH ×2 (06:45→21:40)
[2016-11-18] MEDS: CIPROFLOXACIN HCL 0.3% OPHTH 2.5ML BOTTLE OD SCH ×3 (06:46→21:40)
[2016-11-18] MEDS ORDERED: INSULIN (NOVOLOG) ASPART 100 UNITS/ML 10ML VIAL ONE (06:51)
[2016-11-18 09:09] LABS: INR 1.9 (0.82-1.09); PROTHROMBIN TIME (PATIENT) 21.2 SEC (9.98-11.88)
--- NOTE | 2016-11-18 09:53 | PN ---
Progress Note (short form) - Note Progress Note: Renal Follow up for ESRD on HD Pt seen and examined at the bedside no acute complaints today feels much better overall s/p dialysis yesterday Vital Signs Temperature 98.5 F 11/17/16 18:00 Pulse Rate 72 11/17/16 18:00 Respiratory Rate 16 11/17/16 21:00 Blood Pressure 118/45 11/17/16 18:00 O2 Sat by Pulse Oximetry (%) 97 11/16/16 21:00 Intake & Output 11/15/16 11/16/16 11/17/16 11/18/16 23:59 23:59 23:59 23:59 Intake Total 900 750 900 Output Total 0 Balance 900 750 900 Weight 258 lb 7 oz 261 lb 3.2 oz 263 lb Gen: NAD HEENT: Right eye erythema improving CVS: RRR, No M/R Lungs: CTA, no rales or wheeze Abd: soft NT/ND Ext: no edema, clubbing or cyanosis 11/17/16 09:35 11/17/16 09:35 Laboratory Tests 11/17/16 09:35 Calcium 8.8 Phosphorus 4.2 Current Medications Acetaminophen (Tylenol Suppository -) 650 mg [place] Q6H PRN PRN Reason: FEVER OR PAIN Acetylcysteine (Mucomyst 20 Oral / Inh Use Only*) 800 mg NEB BID@0600,1800 [facility] Last Admin: 11/18/16 06:45 Dose: 800 mg Albuterol Sulfate (Ventolin 0.083% Nebulizer Soln -) 1 amp NEB Q6H PRN PRN Reason: SHORT OF BREATH/WHEEZING Last Admin: 11/18/16 06:45 Dose: 1 amp Ciprofloxacin (Ciloxan 0.3% Eye Drops -) 2 drop OD TID [facility] Last Admin: 11/18/16 06:46 Dose: 2 drop Azithromycin (Zithromax 500mg Ivpb (Pre-Docked)) 250 mls @ 250 mls/hr IVPB DAILY [facility] Last Admin: 11/17/16 15:23 Dose: 250 mls/hr Aztreonam 1 gm/ Dextrose 50 mls @ 100 mls/hr IVPB BID [facility] PRN Reason: Protocol Last Admin: 11/17/16 22:40 Dose: 100 mls/hr Insulin Aspart (Novolog Vial Sliding Scale -) 1 vial SQ ACHS [facility] PRN Reason: Protocol Last Admin: 11/18/16 06:45 Dose: 3 units Insulin Detemir (Levemir Vial) 40 units SQ AM [facility] Last Admin: 11/18/16 06:45 Dose: 40 units Insulin Detemir (Levemir Vial) 15 units SQ HS [facility] Last Admin: 11/17/16 22:41 Dose: 15 units Lactulose (Cephulac (Oral Use)) 20 gm PO DAILY PRN Last Admin: 11/17/16 15:35 Dose: 20 gm Warfarin Sodium (Coumadin -) 8 mg PO DAILY@1800 [facility] Last Admin: 11/17/16 18:05 Dose: Not Given A/P 76 year old woman with PMhx of ESRD on HD, DM Type 2, PVD, Afib on Coumadin, Lumbar Radiculpathy who presented with hypertensive emergency from SNF. #Hypertensive emergency/urgency BP has been WNL during the admission #ESRD/Hyperkalemia no acute indication for HD today #Supratheraputic INR INR improved restarted on Coumadin #Right eye hemorrhage/discharge improving #Anemia s/p PRBC transfusion will continue BRAD with HD #Suspected PNA continue Abx Oral Abx as per ID D/c planning per primary Thank you Alon Page DO
[2016-11-18] MEDS: AZITHROMYCIN IVPB 250 ML IVPB SCH (12:00)
[2016-11-18] MEDS: AZTREONAM 1 GM in DEXTROSE 5%-WATER - 50 ML IVPB SCH (12:00)
--- NOTE | 2016-11-18 13:07 | PN ---
Progress Note, Physician History of Present Illness: pulmonary alert,comfortable,oob-chair,nad,less cough,-sob - Current Medication List Current Medications: Active Medications Acetaminophen (Tylenol Suppository -) 650 mg [place] Q6H PRN PRN Reason: FEVER OR PAIN Acetylcysteine (Mucomyst 20 Oral / Inh Use Only*) 800 mg NEB BID@0600,1800 [facility] Last Admin: 11/18/16 06:45 Dose: 800 mg Albuterol Sulfate (Ventolin 0.083% Nebulizer Soln -) 1 amp NEB Q6H PRN PRN Reason: SHORT OF BREATH/WHEEZING Last Admin: 11/18/16 06:45 Dose: 1 amp Ciprofloxacin (Ciloxan 0.3% Eye Drops -) 2 drop OD TID [facility] Last Admin: 11/18/16 06:46 Dose: 2 drop Azithromycin (Zithromax 500mg Ivpb (Pre-Docked)) 250 mls @ 250 mls/hr IVPB DAILY [facility] Last Admin: 11/17/16 15:23 Dose: 250 mls/hr Aztreonam 1 gm/ Dextrose 50 mls @ 100 mls/hr IVPB BID [facility] PRN Reason: Protocol Last Admin: 11/17/16 22:40 Dose: 100 mls/hr Insulin Aspart (Novolog Vial Sliding Scale -) 1 vial SQ ACHS [facility] PRN Reason: Protocol Last Admin: 11/18/16 12:08 Dose: 4 units Insulin Detemir (Levemir Vial) 40 units SQ AM [facility] Last Admin: 11/18/16 06:45 Dose: 40 units Insulin Detemir (Levemir Vial) 15 units SQ HS [facility] Last Admin: 11/17/16 22:41 Dose: 15 units Lactulose (Cephulac (Oral Use)) 20 gm PO DAILY PRN Last Admin: 11/17/16 15:35 Dose: 20 gm Warfarin Sodium (Coumadin -) 8 mg PO DAILY@1800 [facility] Last Admin: 11/17/16 18:05 Dose: Not Given - Objective Vital Signs: Vital Signs Temperature 98.5 F 11/17/16 18:00 Pulse Rate 72 11/18/16 11:48 Respiratory Rate 18 11/18/16 10:00 Blood Pressure 126/50 11/18/16 10:00 O2 Sat by Pulse Oximetry (%) 92 L 11/18/16 11:48 Constitutional: Yes: Well Nourished, Calm Eyes: Yes: WNL HENT: Yes: WNL Neck: Yes: WNL Cardiovascular: Yes: Pulse Irregular, S1, S2 Respiratory: Yes: Diminished Gastrointestinal: Yes: WNL Extremities: Yes: WNL Edema: Yes Labs: CBC, BMP 11/17/16 09:35 11/17/16 09:35 INR, PTT INR 1.90 (0.82-1.09) H 11/18/16 08:15 Problem List - Problems (1) Hypoxia Code(s): R09.02 - HYPOXEMIA Assessment/Plan Problem List - Problems (1) COPD (chronic obstructive pulmonary disease) Code(s): J44.9 - CHRONIC OBSTRUCTIVE PULMONARY DISEASE, UNSPECIFIED Qualifiers : COPD type: unspecified COPD Qualified Code(s): J44.9 - Chronic obstructive pulmonary disease, unspecified (2) End stage chronic kidney disease Code(s): N18.6 - END STAGE RENAL DISEASE Z99.2 - DEPENDENCE ON RENAL DIALYSIS (3) Fever Code(s): R50.9 - FEVER, UNSPECIFIED Qualifiers: Fever type: unspecified Qualified Code(s): R50.9 - Fever, unspecified (4) Pneumonia Code(s): J18.9 - PNEUMONIA, UNSPECIFIED ORGANISM Qualifiers: Pneumonia type: due to unspecified organism Laterality: right Lung location: lower lobe of lung Qualified Code(s): J18.1 - Lobar pneumonia, unspecified organism (5) ASHD (arteriosclerotic heart disease) Code(s): I25.10 - ATHSCL HEART DISEASE OF [place] CORONARY ARTERY W/O ANG PCTRS (6) Anemia Code(s): D64.9 - ANEMIA, UNSPECIFIED Qualifiers: Anemia type: other cause Other causes of anemia: chronic disease, kidney (7) Atrial fibrillation Code(s): I48.91 - UNSPECIFIED ATRIAL FIBRILLATION Qualifiers: Atrial fibrillation type: chronic Qualified Code(s): I48.2 - Chronic atrial fibrillation (8) Carotid artery disease Code(s): I77.9 - DISORDER OF ARTERIES AND ARTERIOLES, UNSPECIFIED (9) Diabetes Code(s): E11.9 - TYPE 2 DIABETES MELLITUS WITHOUT COMPLICATIONS (10) ESRD (end stage renal disease) on dialysis Code(s): N18.6 - END STAGE RENAL DISEASE Z99.2 - DEPENDENCE ON RENAL DIALYSIS (11) HTN (hypertension) Code(s): I10 - ESSENTIAL (PRIMARY) HYPERTENSION Qualifiers: Hypertension type: essential hypertension Qualified Code(s): I10 - Essential (primary) hypertension (12) Hyperlipidemia Code(s): E78.5 - HYPERLIPIDEMIA, UNSPECIFIED (13) Obesity Code(s): E66.9 - OBESITY, UNSPECIFIED (14) Peripheral artery disease Code(s): I73.9 - PERIPHERAL VASCULAR DISEASE, UNSPECIFIED (15) Pulmonary hypertension Code(s): I27.2 - OTHER SECONDARY PULMONARY HYPERTENSION (16) Breast mass in female Code(s): N63 - UNSPECIFIED LUMP IN BREAST Assessment/Plan PLAN: O2 prn ABX per ID VTE prophylaxis BD TX as ordered HD as per renal DR LEVINE
[2016-11-18] MEDS ORDERED: PT OWN MED DRAWER 7, Y5N ONE ×2 (14:51→20:29)
[2016-11-18] MEDS ORDERED: LEVOFLOXACIN 250 MG TABLET (FP) PO SCH (18:00)
--- NOTE | 2016-11-18 18:10 | PN ---
Progress Note, Physician Chief Complaint: SOB, High blood pressure. History of Present Illness: Originally came in with PNE, pleural effusions, CHF, uncontrolled diabetes, abnormal anticoagulation. - Current Medication List Current Medications: Active Medications Acetaminophen (Tylenol Suppository -) 650 mg [place] Q6H PRN PRN Reason: FEVER OR PAIN Acetylcysteine (Mucomyst 20 Oral / Inh Use Only*) 800 mg NEB BID@0600,1800 [facility] Last Admin: 11/18/16 17:43 Dose: Not Given Albuterol Sulfate (Ventolin 0.083% Nebulizer Soln -) 1 amp NEB Q6H PRN PRN Reason: SHORT OF BREATH/WHEEZING Last Admin: 11/18/16 06:45 Dose: 1 amp Ciprofloxacin (Ciloxan 0.3% Eye Drops -) 2 drop OD TID [facility] Last Admin: 11/18/16 14:52 Dose: 2 drop Insulin Aspart (Novolog Vial Sliding Scale -) 1 vial SQ [facility] PRN Reason: Protocol Last Admin: 11/18/16 12:08 Dose: 4 units Insulin Detemir (Levemir Vial) 40 units SQ AM [facility] Last Admin: 11/18/16 06:45 Dose: 40 units Insulin Detemir (Levemir Vial) 15 units SQ HS [facility] Last Admin: 11/17/16 22:41 Dose: 15 units Lactulose (Cephulac (Oral Use)) 20 gm PO DAILY PRN Last Admin: 11/17/16 15:35 Dose: 20 gm Levofloxacin (Levaquin -) 250 mg PO Q48H [facility] Warfarin Sodium (Coumadin -) 10 mg PO DAILY@1800 [facility] - Objective Vital Signs: Vital Signs Temperature 98.7 F 11/18/16 14:32 Pulse Rate 67 11/18/16 14:32 Respiratory Rate 18 11/18/16 14:32 Blood Pressure 125/53 11/18/16 14:32 O2 Sat by Pulse Oximetry (%) 92 L 11/18/16 11:48 Constitutional: Yes: Well Nourished, No Distress, Calm Cardiovascular: Yes: Regular Rate and Rhythm Respiratory: Yes: Regular Gastrointestinal: Yes: Normal Bowel Sounds Genitourinary: Yes: Anuria Extremities: Yes: WNL Edema: No Neurological: Yes: Alert, Oriented Labs: CBC, BMP 11/17/16 09:35 11/17/16 09:35 INR, PTT INR 1.90 (0.82-1.09) H 11/18/16 08:15 Problem List - Problems (1) End stage chronic kidney disease Assessment/Plan: ON HD Code(s): N18.6 - END STAGE RENAL DISEASE Z99.2 - DEPENDENCE ON RENAL DIALYSIS (2) Fluid overload Assessment/Plan: FEELING MUCH BETTER TODAY Code(s): E87.70 - FLUID OVERLOAD, UNSPECIFIED Qualifiers: Hypervolemia type: unspecified Qualified Code(s): E87.70 - Fluid overload, unspecified (3) Pneumonia Assessment/Plan: ON PO ABX LEVAQUIN 250 MG Q48H FOR 2 DOSES Code(s): J18.9 - PNEUMONIA, UNSPECIFIED ORGANISM Qualifiers: Pneumonia type: due to unspecified organism Laterality: right Lung location: lower lobe of lung Qualified Code(s): J18.1 - Lobar pneumonia, unspecified organism (4) Atrial fibrillation Assessment/Plan: INR-1.9. Warfarin 10 mg today and monitor INR in AM. Code(s): I48.91 - UNSPECIFIED ATRIAL FIBRILLATION Qualifiers: Atrial fibrillation type: chronic Qualified Code(s): I48.2 - Chronic atrial fibrillation (5) Diabetes mellitus, insulin dependent (IDDM), uncontrolled Assessment/Plan: better controlled. Code(s): E10.65 - TYPE 1 DIABETES MELLITUS WITH HYPERGLYCEMIA Qualifiers: Diabetes mellitus complication detail: with chronic kidney disease Chronic kidney disease stage: on chronic dialysis Assessment/Plan LEVAQUIN 250 MG Q48H FOR ANOTHER 2 DOSES INR CHECK HD PER RENAL FEELING MUCH BETTER TODAY OOB B/S CLEAR
[2016-11-18] MEDS: WARFARIN NA 2 MG TABLET (UD) PO SCH (18:31)
[2016-11-18] MEDS ORDERED: WARFARIN NA 10 MG TABLET (FP) PO SCH (18:53)
[2016-11-18] MEDS: WARFARIN NA 10 MG TABLET (FP) PO SCH (21:39)
[2016-11-19] MEDS: INSULIN SLIDING SCALE (NOVOLOG) 1 VIAL SQ SCH ×4 (06:15→22:11)
[2016-11-19] MEDS: CIPROFLOXACIN HCL 0.3% OPHTH 2.5ML BOTTLE OD SCH ×3 (06:15→22:09)
[2016-11-19] MEDS: INSULIN DETEMIR 100 UNITS/ML MDV SQ SCH ×2 (06:16→22:10)
[2016-11-19] MEDS: ACETYLCYSTEINE 20% 200MG/ML 4 ML VIAL *FOR ORAL / INH USE ONLY NEB SCH ×2 (06:42→17:38)
[2016-11-19] MEDS: ALBUTEROL SO4 0.083% IH SOL 2.5 MG/3 ML VIAL.NEB. NEB PRN (06:42)
[2016-11-19] MEDS ORDERED: INSULIN DETEMIR 100 UNITS/ML MDV SQ ONE (06:57)
[2016-11-19] MEDS ORDERED: INSULIN (NOVOLOG) ASPART 100 UNITS/ML 10ML VIAL ONE ×3 (06:58→22:01)
[2016-11-19] MEDS ORDERED: PT OWN MED DRAWER 7, Y5N ONE ×2 (06:59→22:01)
[2016-11-19 07:43] LABS: ANION GAP 11 (8-16); CALCIUM 8.7 mg/dL (8.5-10.1); CO2 30 mmol/L (21-32); GLUCOSE,RANDOM 86 mg/dL (74-106)
[2016-11-19 07:44] LABS: CREATININE 7.3 mg/dL (0.55-1.02)
[2016-11-19 07:53] LABS: INR 2.29 (0.82-1.09); PROTHROMBIN TIME (PATIENT) 25.6 SEC (9.98-11.88)
--- NOTE | 2016-11-19 12:36 | PN ---
Progress Note, Physician History of Present Illness: PULMONARY ALERT,NAD,OOB-CHAIR,-SOB,MILD COUGH - Current Medication List Current Medications: Active Medications Acetaminophen (Tylenol Suppository -) 650 mg [place] Q6H PRN PRN Reason: FEVER OR PAIN Acetylcysteine (Mucomyst 20 Oral / Inh Use Only*) 800 mg NEB BID@0600,1800 [facility] Last Admin: 11/19/16 06:42 Dose: 800 mg Albuterol Sulfate (Ventolin 0.083% Nebulizer Soln -) 1 amp NEB Q6H PRN PRN Reason: SHORT OF BREATH/WHEEZING Last Admin: 11/19/16 06:42 Dose: 1 amp Ciprofloxacin (Ciloxan 0.3% Eye Drops -) 2 drop OD TID [facility] Last Admin: 11/19/16 06:15 Dose: 2 drop Insulin Aspart (Novolog Vial Sliding Scale -) 1 vial SQ ACHS [facility] PRN Reason: Protocol Last Admin: 11/19/16 11:50 Dose: 4 units Insulin Detemir (Levemir Vial) 40 units SQ AM [facility] Last Admin: 11/19/16 06:16 Dose: Not Given Insulin Detemir (Levemir Vial) 15 units SQ HS [facility] Last Admin: 11/18/16 21:40 Dose: 15 units Lactulose (Cephulac (Oral Use)) 20 gm PO DAILY PRN Last Admin: 11/17/16 15:35 Dose: 20 gm Levofloxacin (Levaquin -) 250 mg PO Q48H [facility] Last Admin: 11/18/16 21:39 Dose: 250 mg Warfarin Sodium (Coumadin -) 10 mg PO DAILY@1800 [facility] Last Admin: 11/18/16 21:39 Dose: 10 mg - Objective Vital Signs: Vital Signs Temperature 98.8 F 11/19/16 09:00 Pulse Rate 60 11/19/16 11:21 Respiratory Rate 20 11/19/16 09:00 Blood Pressure 110/50 11/19/16 09:00 O2 Sat by Pulse Oximetry (%) 99 11/19/16 11:21 Constitutional: Yes: Calm, Obese Eyes: Yes: WNL HENT: Yes: WNL Neck: Yes: WNL Cardiovascular: Yes: Pulse Irregular, S1, S2 Respiratory: Yes: CTA Bilaterally Gastrointestinal: Yes: WNL Extremities: Yes: WNL Edema: Yes Labs: CBC, BMP 11/17/16 09:35 11/19/16 06:25 INR, PTT INR 2.29 (0.82-1.09) H 11/19/16 06:25 Problem List - Problems (1) Hypoxia Code(s): R09.02 - HYPOXEMIA Assessment/Plan Problem List - Problems (1) COPD (chronic obstructive pulmonary disease) Code(s): J44.9 - CHRONIC OBSTRUCTIVE PULMONARY DISEASE, UNSPECIFIED Qualifiers : COPD type: unspecified COPD Qualified Code(s): J44.9 - Chronic obstructive pulmonary disease, unspecified (2) End stage chronic kidney disease Code(s): N18.6 - END STAGE RENAL DISEASE Z99.2 - DEPENDENCE ON RENAL DIALYSIS (3) Fever Code(s): R50.9 - FEVER, UNSPECIFIED Qualifiers: Fever type: unspecified Qualified Code(s): R50.9 - Fever, unspecified (4) Pneumonia Code(s): J18.9 - PNEUMONIA, UNSPECIFIED ORGANISM Qualifiers: Pneumonia type: due to unspecified organism Laterality: right Lung location: lower lobe of lung Qualified Code(s): J18.1 - Lobar pneumonia, unspecified organism (5) ASHD (arteriosclerotic heart disease) Code(s): I25.10 - ATHSCL HEART DISEASE OF [place] CORONARY ARTERY W/O ANG PCTRS (6) Anemia Code(s): D64.9 - ANEMIA, UNSPECIFIED Qualifiers: Anemia type: other cause Other causes of anemia: chronic disease, kidney (7) Atrial fibrillation Code(s): I48.91 - UNSPECIFIED ATRIAL FIBRILLATION Qualifiers: Atrial fibrillation type: chronic Qualified Code(s): I48.2 - Chronic atrial fibrillation (8) Carotid artery disease Code(s): I77.9 - DISORDER OF ARTERIES AND ARTERIOLES, UNSPECIFIED (9) Diabetes Code(s): E11.9 - TYPE 2 DIABETES MELLITUS WITHOUT COMPLICATIONS (10) ESRD (end stage renal disease) on dialysis Code(s): N18.6 - END STAGE RENAL DISEASE Z99.2 - DEPENDENCE ON RENAL DIALYSIS (11) HTN (hypertension) Code(s): I10 - ESSENTIAL (PRIMARY) HYPERTENSION Qualifiers: Hypertension type: essential hypertension Qualified Code(s): I10 - Essential (primary) hypertension (12) Hyperlipidemia Code(s): E78.5 - HYPERLIPIDEMIA, UNSPECIFIED (13) Obesity Code(s): E66.9 - OBESITY, UNSPECIFIED (14) Peripheral artery disease Code(s): I73.9 - PERIPHERAL VASCULAR DISEASE, UNSPECIFIED (15) Pulmonary hypertension Code(s): I27.2 - OTHER SECONDARY PULMONARY HYPERTENSION (16) Breast mass in female Code(s): N63 - UNSPECIFIED LUMP IN BREAST Assessment/Plan PLAN: O2 prn ABX per ID VTE prophylaxis BD TX as ordered HD as per renal DR LEVINE
[2016-11-19] MEDS: LACTULOSE 20 GM/30 ML UDC (FOR ORAL USE ONLY) PO PRN (16:17)
[2016-11-19] MEDS: WARFARIN NA 10 MG TABLET (FP) PO SCH (17:59)
[2016-11-19] MEDS ORDERED: WARFARIN NA 10 MG TABLET (FP) PO SCH (18:00)
--- NOTE | 2016-11-19 19:09 | PN ---
Progress Note, Physician Chief Complaint: SOB, High blood pressure. History of Present Illness: Originally came in with PNE, pleural effusions, CHF, uncontrolled diabetes, abnormal anticoagulation. - Current Medication List Current Medications: Active Medications Acetaminophen (Tylenol Suppository -) 650 mg [place] Q6H PRN PRN Reason: FEVER OR PAIN Acetylcysteine (Mucomyst 20 Oral / Inh Use Only*) 800 mg NEB BID@0600,1800 [facility] Last Admin: 11/19/16 17:38 Dose: Not Given Albuterol Sulfate (Ventolin 0.083% Nebulizer Soln -) 1 amp NEB Q6H PRN PRN Reason: SHORT OF BREATH/WHEEZING Last Admin: 11/19/16 06:42 Dose: 1 amp Ciprofloxacin (Ciloxan 0.3% Eye Drops -) 2 drop OD TID [facility] Last Admin: 11/19/16 14:33 Dose: 2 drop Insulin Aspart (Novolog Vial Sliding Scale -) 1 vial SQ ACHS [facility] PRN Reason: Protocol Last Admin: 11/19/16 17:59 Dose: 4 units Insulin Detemir (Levemir Vial) 40 units SQ AM [facility] Last Admin: 11/19/16 06:16 Dose: Not Given Insulin Detemir (Levemir Vial) 15 units SQ HS [facility] Last Admin: 11/18/16 21:40 Dose: 15 units Lactulose (Cephulac (Oral Use)) 20 gm PO DAILY PRN Last Admin: 11/19/16 16:17 Dose: 20 gm Levofloxacin (Levaquin -) 250 mg PO Q48H [facility] Last Admin: 11/18/16 21:39 Dose: 250 mg Warfarin Sodium (Coumadin -) 10 mg PO DAILY@1800 [facility] Last Admin: 11/19/16 17:59 Dose: 10 mg - Objective Vital Signs: Vital Signs Temperature 98.5 F 11/19/16 18:53 Pulse Rate 66 11/19/16 18:53 Respiratory Rate 20 11/19/16 18:53 Blood Pressure 120/53 11/19/16 18:53 O2 Sat by Pulse Oximetry (%) 99 11/19/16 11:21 Constitutional: Yes: Well Nourished, No Distress, Calm Cardiovascular: Yes: Regular Rate and Rhythm Respiratory: Yes: Regular Musculoskeletal: Yes: WNL Extremities: Yes: WNL Edema: No Peripheral Pulses WNL: Yes Labs: CBC, BMP 11/17/16 09:35 11/19/16 06:25 INR, PTT INR 2.29 (0.82-1.09) H 11/19/16 06:25 Problem List - Problems (1) End stage chronic kidney disease Assessment/Plan: ON HD Code(s): N18.6 - END STAGE RENAL DISEASE Z99.2 - DEPENDENCE ON RENAL DIALYSIS (2) Fluid overload Assessment/Plan: FEELING MUCH BETTER TODAY Code(s): E87.70 - FLUID OVERLOAD, UNSPECIFIED Qualifiers: Hypervolemia type: unspecified Qualified Code(s): E87.70 - Fluid overload, unspecified (3) Pneumonia Assessment/Plan: ON PO ABX LEVAQUIN 250 MG Q48H FOR 2 DOSES Code(s): J18.9 - PNEUMONIA, UNSPECIFIED ORGANISM Qualifiers: Pneumonia type: due to unspecified organism Laterality: right Lung location: lower lobe of lung Qualified Code(s): J18.1 - Lobar pneumonia, unspecified organism (4) Atrial fibrillation Assessment/Plan: INR-1.9. Warfarin 10 mg today and monitor INR in AM. Code(s): I48.91 - UNSPECIFIED ATRIAL FIBRILLATION Qualifiers: Atrial fibrillation type: chronic Qualified Code(s): I48.2 - Chronic atrial fibrillation (5) Diabetes mellitus, insulin dependent (IDDM), uncontrolled Code(s): E10.65 - TYPE 1 DIABETES MELLITUS WITH HYPERGLYCEMIA Qualifiers: Diabetes mellitus complication detail: with chronic kidney disease Chronic kidney disease stage: on chronic dialysis Assessment/Plan LEVAQUIN 250 MG Q48H FOR ANOTHER 2 DOSES, LAST DOSE ON 11/20/16 INR IS 2.29, RECHECK IN AM, MAINTAIN INR 2-3 HD PER RENAL FEELING MUCH BETTER TODAY OOB B/S CLEAR SPOKE TO DAUGHTER YESTERDAY WHO WORKS AT [employer]. PATIENT AND DAUGHTER WANTS HER TO GO TO [employer] INSTEAD OF [facility]. START MARIANA.
[2016-11-20] MEDS: CIPROFLOXACIN HCL 0.3% OPHTH 2.5ML BOTTLE OD SCH ×2 (06:23→14:00)
[2016-11-20] MEDS: INSULIN DETEMIR 100 UNITS/ML MDV SQ SCH (06:24)
[2016-11-20] MEDS: INSULIN SLIDING SCALE (NOVOLOG) 1 VIAL SQ SCH ×2 (06:25→13:46)
[2016-11-20] MEDS: ALBUTEROL SO4 0.083% IH SOL 2.5 MG/3 ML VIAL.NEB. NEB PRN (06:40)
[2016-11-20] MEDS: ACETYLCYSTEINE 20% 200MG/ML 4 ML VIAL *FOR ORAL / INH USE ONLY NEB SCH (06:40)
[2016-11-20] MEDS ORDERED: EPOETIN ALFA 10,000 UNIT/1 ML VIAL IVPUSH ONE (08:00)
[2016-11-20 09:19] LABS: ANION GAP 11 (8-16); CALCIUM 8.4 mg/dL (8.5-10.1); CO2 29 mmol/L (21-32); GLUCOSE,RANDOM 138 mg/dL (74-106)
[2016-11-20 09:31] LABS: CREATININE 9.1 mg/dL (0.55-1.02)
--- NOTE | 2016-11-20 11:13 | PN ---
Progress Note, Physician Chief Complaint: getting HD awaiting bed at [facility] inr 2.29 last dose of abx today - Current Medication List Current Medications: Active Medications Acetaminophen (Tylenol Suppository -) 650 mg [place] Q6H PRN PRN Reason: FEVER OR PAIN Acetylcysteine (Mucomyst 20 Oral / Inh Use Only*) 800 mg NEB BID@0600,1800 [facility] Last Admin: 11/20/16 06:40 Dose: 800 mg Albuterol Sulfate (Ventolin 0.083% Nebulizer Soln -) 1 amp NEB Q6H PRN PRN Reason: SHORT OF BREATH/WHEEZING Last Admin: 11/20/16 06:40 Dose: 1 amp Ciprofloxacin (Ciloxan 0.3% Eye Drops -) 2 drop OD TID [facility] Last Admin: 11/20/16 06:23 Dose: 2 drop Insulin Aspart (Novolog Vial Sliding Scale -) 1 vial SQ ACHS [facility] PRN Reason: Protocol Last Admin: 11/20/16 06:25 Dose: Not Given Insulin Detemir (Levemir Vial) 40 units SQ AM [facility] Last Admin: 11/20/16 06:24 Dose: 40 units Insulin Detemir (Levemir Vial) 15 units SQ HS [facility] Last Admin: 11/19/16 22:10 Dose: 15 units Lactulose (Cephulac (Oral Use)) 20 gm PO DAILY PRN Last Admin: 11/19/16 16:17 Dose: 20 gm Levofloxacin (Levaquin -) 250 mg PO Q48H [facility] Last Admin: 11/18/16 21:39 Dose: 250 mg Warfarin Sodium (Coumadin -) 10 mg PO DAILY@1800 [facility] Last Admin: 11/19/16 17:59 Dose: 10 mg - Objective Vital Signs: Vital Signs Temperature 98.1 F 11/20/16 07:55 Pulse Rate 84 11/20/16 10:57 Respiratory Rate 18 11/20/16 10:57 Blood Pressure 124/56 11/20/16 10:57 O2 Sat by Pulse Oximetry (%) 98 11/19/16 21:00 Constitutional: Yes: Calm Eyes: Yes: Conjunctiva Clear Cardiovascular: Yes: Regular Rate and Rhythm, S1, S2 Respiratory: Yes: CTA Bilaterally Gastrointestinal: Yes: Soft Edema: No Neurological: Yes: Alert, Oriented Labs: CBC, BMP 11/17/16 09:35 11/20/16 08:00 INR, PTT INR 2.29 (0.82-1.09) H 11/19/16 06:25 Problem List - Problems (1) End stage chronic kidney disease Assessment/Plan: HD per schedule at [facility] Code(s): N18.6 - END STAGE RENAL DISEASE Z99.2 - DEPENDENCE ON RENAL DIALYSIS (2) Atrial fibrillation Assessment/Plan: on couamdin therpauetic Code(s): I48.91 - UNSPECIFIED ATRIAL FIBRILLATION Qualifiers: Atrial fibrillation type: chronic Qualified Code(s): I48.2 - Chronic atrial fibrillation (3) Type 2 diabetes mellitus with diabetic chronic kidney disease Assessment/Plan: insulin per endo Code(s): E11.22 - TYPE 2 DIABETES MELLITUS W DIABETIC CHRONIC KIDNEY DISEASE (4) Pneumonia Assessment/Plan: last dose of abx is today Code(s): J18.9 - PNEUMONIA, UNSPECIFIED ORGANISM Qualifiers: Pneumonia type: due to unspecified organism Laterality: right Lung location: lower lobe of lung Qualified Code(s): J18.1 - Lobar pneumonia, unspecified organism Assessment/Plan dc to [facility] once bed available [facility] inr MWF
--- NOTE | 2016-11-20 11:33 | PN ---
Progress Note (short form) - Note Progress Note: Renal Follow up for ESRD on HD Pt seen and examined during dialysis BP stable, goal UF is 2.5-3L AVF with good flow pt without complaints no chest pain or sob Vital Signs Temperature 98.1 F 11/20/16 07:55 Pulse Rate 84 11/20/16 10:57 Respiratory Rate 18 11/20/16 10:57 Blood Pressure 124/56 11/20/16 10:57 O2 Sat by Pulse Oximetry (%) 98 11/19/16 21:00 Intake & Output 11/17/16 11/18/16 11/19/16 11/20/16 23:59 23:59 23:59 23:59 Intake Total 559 761 0344 120 Balance 571 228 3015 120 Weight 263 lb 267 lb 12.8 oz Gen: NAD HEENT: Right eye erythema improving CVS: RRR, No M/R Lungs: CTA, no rales or wheeze Abd: soft NT/ND Ext: no edema, clubbing or cyanosis CBC, BMP 11/17/16 09:35 11/20/16 08:00 Laboratory Tests 11/20/16 08:00 Calcium 8.4 L Current Medications Acetaminophen (Tylenol Suppository -) 650 mg [place] Q6H PRN PRN Reason: FEVER OR PAIN Acetylcysteine (Mucomyst 20 Oral / Inh Use Only*) 800 mg NEB BID@0600,1800 [facility] Last Admin: 11/20/16 06:40 Dose: 800 mg Albuterol Sulfate (Ventolin 0.083% Nebulizer Soln -) 1 amp NEB Q6H PRN PRN Reason: SHORT OF BREATH/WHEEZING Last Admin: 11/20/16 06:40 Dose: 1 amp Ciprofloxacin (Ciloxan 0.3% Eye Drops -) 2 drop OD TID [facility] Last Admin: 11/20/16 06:23 Dose: 2 drop Insulin Aspart (Novolog Vial Sliding Scale -) 1 vial SQ ACHS [facility] PRN Reason: Protocol Last Admin: 11/20/16 06:25 Dose: Not Given Insulin Detemir (Levemir Vial) 40 units SQ AM [facility] Last Admin: 11/20/16 06:24 Dose: 40 units Insulin Detemir (Levemir Vial) 15 units SQ HS [facility] Last Admin: 11/19/16 22:10 Dose: 15 units Lactulose (Cephulac (Oral Use)) 20 gm PO DAILY PRN Last Admin: 11/19/16 16:17 Dose: 20 gm Levofloxacin (Levaquin -) 250 mg PO Q48H [facility] Last Admin: 11/18/16 21:39 Dose: 250 mg Warfarin Sodium (Coumadin -) 10 mg PO DAILY@1800 [facility] Last Admin: 11/19/16 17:59 Dose: 10 mg A/P 76 year old woman with PMhx of ESRD on HD, DM Type 2, PVD, Afib on Coumadin, Lumbar Radiculpathy who presented with hypertensive emergency from SNF. #ESRD/Hyperkalemia tolerating HD well today #Hypertensive Urgency BP well controlled off meds #Supratheraputic INR INR improved restarted on Coumadin #Right eye hemorrhage/discharge improving #Anemia s/p PRBC transfusion will continue BRAD with HD #Suspected PNA continue Abx Oral Abx as per ID D/c planning per primary Thank you Alon Pgae DO
[2016-11-20] MEDS ORDERED: PT OWN MED DRAWER 7, Y5N ONE (13:46)
[2016-11-20 14:08] VITALS: BP 120/60; PULSE 60; TEMP 98.7
== END 2016-11-20 16:35 | DRG 190 ==
LOC: JER 10:34 → JERBED 12:52 → J6S 11-13 15:45 → J5S 11-15 18:54
PROVIDERS: ADMIT Family Medicine; ATTEND Family Medicine
PROC: 5A1D60Z (ICD-10-PCS; principal; 2016-11-20)
DX: J44.0 Chronic obstructive pulmonary disease with (acute) lower respiratory infection (principal); J18.9 Pneumonia, unspecified organism; N18.6 End stage renal disease; I12.0 Hypertensive chronic kidney disease with stage 5 chronic kidney disease or end stage renal disease; J44.9 Chronic obstructive pulmonary disease, unspecified; Z99.2 Dependence on renal dialysis; E87.5 Hyperkalemia; R79.1 Abnormal coagulation profile; D64.9 Anemia, unspecified; Z88.0 Allergy status to penicillin; E66.9 Obesity, unspecified; Z68.37 Body mass index [BMI] 37.0-37.9, adult; I25.10 Atherosclerotic heart disease of native coronary artery without angina pectoris; I48.2 Chronic atrial fibrillation; E87.70 Fluid overload, unspecified; K52.9 Noninfective gastroenteritis and colitis, unspecified; E11.22 Type 2 diabetes mellitus with diabetic chronic kidney disease; E11.65 Type 2 diabetes mellitus with hyperglycemia; Z79.4 Long term (current) use of insulin; J44.1 Chronic obstructive pulmonary disease with (acute) exacerbation
CPT/HCPCS: 36415; 36430; 70450-TC; 71010-TC; 71250-TC; 80048; 80053; 80162; 82550; 82553; 83605; 83735; 83880; 84100; 84484; 85025; 85027; 85610; 86140; 86850; 86900; 86901; 86922; 87040; 87070; 87205; 93005; 93010; 94640; 94761; 97116-GP; 97162-GP; 99284-25; G0480; J0885; J1644; P9038; P9058

== ENCOUNTER 2018-08-20 15:59 | Inpatient (IN) | payer OTHER, MEDICARE ==
--- NOTE | 2018-08-20 16:46 | PDOC ---
Rapid Medical Evaluation Medical Evaluation: Allergies Allergy/AdvReac Type Severity Reaction Status Date / Time Penicillins Allergy Swelling Verified 08/20/18 16:41 I have performed a brief in-person evaluation of this patient. The patient presents with a chief complaint of: Hx of DM, B/L foot infection x 1 week; sent by instrument and control service person Pertinent physical exam findings: L 5th toe gangrene; R foot - +drainage I have ordered the following: Labs, xray The patient will proceed to the ED for further evaluation. 08/20/18 16:45
[2018-08-20 17:20] LABS: BASO % 1.1 % (0-2.0); EOS % 0.1 % (0-4.5); HEMATOCRIT 36.5 % (32.4-45.2); HEMOGLOBIN 12.5 GM/dL (10.7-15.3); LYMPH % 17.7 % (8-40); MCH 32.1 pg (25.7-33.7); MCHC 34.1 g/dl (32.0-36.0); MEAN PLT VOLUME 8.7 fl (7.5-11.1); MONO % 12.6 % (3.8-10.2); NEUT % 68.5 % (42.8-82.8); PLATELET COUNT 243 K/MM3 (134-434); RBC 3.89 M/mm3 (3.60-5.2); RDW 15.4 % (11.6-15.6); WHITE BLOOD COUNT 13.7 K/mm3 (4.0-10.0)
[2018-08-20 17:44] LABS: INR 3.22 (0.83-1.09); PROTHROMBIN TIME (PATIENT) 38.4 SEC (9.7-13.0)
[2018-08-20 18:09] LABS: ANION GAP 14 MMOL/L (8-16); BLOOD UREA NITROGEN 56 mg/dL (7-18); CALCIUM 9.2 mg/dL (8.5-10.1); CHLORIDE 93 mmol/L (98-107); CO2 26 mmol/L (21-32); GLUCOSE,RANDOM 99 mg/dL (74-106); SODIUM 132 mmol/L (136-145)
[2018-08-20 18:22] LABS: CREATININE 8.5 mg/dL (0.55-1.3)
--- NOTE | 2018-08-20 18:53 | PDOC ---
Attending Attestation - HPI HPI: 08/20/18 20:34 The patient is a 77 year old female with a past medical history of DM, ESRD on HD MWF, Afib on coumadin, who presents to the emergency department for evaluation of gangrenous right 5th toe and wound to left great toe. - Medical Decision Making 08/20/18 20:34 Documentation prepared by Arlene Zhang, acting as forensic medical examiner for Elizabeth Grimaldo MD. <Arlene Zhang - Last Filed: 08/20/18 20:34> - Resident Resident Name: Bharati Dorman - ED Attending Attestation I have performed the following: I have examined & evaluated the patient, The case was reviewed & discussed with the resident, I agree w/resident's findings & plan, Exceptions are as noted - Physicial Exam PE: 08/20/18 21:13 morbidly obese 77 yo female sent in for admission head ncat eyes larisa eomi neck supple lungs cta b/l cvs [id number] abd protuberant extremities right foot had gangrenous 5th toe,the foot is erythematous left fifth toe is also erythematous neuro axox3 skin warm and dry - Medical Decision Making 08/20/18 21:16 pt requires admission for surgical eval and possible amputation/debridement and IV antibiotics <Elizabeth Grimaldo - Last Filed: 08/20/18 21:17>
--- NOTE | 2018-08-20 20:19 | PDOC ---
History of Present Illness - General Chief Complaint: Wound Stated Complaint: SENT BY PCP Time Seen by Provider: 08/20/18 16:45 History Source: Patient Exam Limitations: No Limitations - History of Present Illness Initial Comments: 08/20/18 20:18 Pt is a 77yo F with PMH of ESRD on HD MWF, DM, Afib (on Coumadin), CHF, HTN, HLD sent to ED from superintendent division office for gangrene. Pt states that she noticed the discoloration in her toes for about 1 week. She does not recall an inciting event. She saw her superintendent division who told her to come to the emergency room. She denies numbness/tingling, pain, fever, chills. PMD: Joann Pod: Jacqueline PMH: see hpi PSH: cholecystectomy, appendectomy Meds: see med rec Allergies: PCN (swelling) Social: denies Past History - Past Medical History Allergies/Adverse Reactions: Allergies Allergy/AdvReac Type Severity Reaction Status Date / Time Penicillins Allergy Swelling Verified 08/20/18 16:41 Home Medications: Ambulatory Orders Calcitriol 0.5 mcg PO DAILY 08/20/18 Folic Acid/Vit B Complex and C [Nayla-Mahi Tablet] 0.8 mg PO DAILY 08/20/18 Glimepiride [Amaryl -] 4 mg PO DAILY 08/20/18 Metoprolol Succinate [Toprol Xl -] 25 mg PO DAILY 08/20/18 Sertraline HCl [Zoloft -] 25 mg PO DAILY 08/20/18 Sevelamer Carbonate [Renvela] 2,400 mg PO CM 08/20/18 Sodium Bicarbonate 10 mg PO DAILY 08/20/18 Warfarin Na [Coumadin] 10 mg PO DAILY 08/20/18 Anemia: Yes Asthma: No Cancer: No Cardiac Disorders: Yes (ARRHYTHMIA, H/O A FIB,CAD) CVA: No COPD: No CHF: Yes Dementia: No Diabetes: Yes (1993) Dialysis: Yes (--) GI Disorders: No Disorders: Yes (RENAL DIALYSIS STARTED 2003) HTN: Yes (NO MEDS (GOES TOO LOW ON DIALYSIS)) Hypercholesterolemia: Yes Liver Disease: No Seizures: No Thyroid Disease: No - Surgical History Abdominal Surgery: Yes (UMBILICAL HERNIA REPAIR) Appendectomy: Yes (MANY YRS AGO) Cardiac Surgery: No Cholecystectomy: Yes (MANY YRS AGO) Lung Surgery: No Neurologic Surgery: No Orthopedic Surgery: No - Immunization History Immunization Up to Date: Yes - Suicide/Smoking/Psychosocial Hx Smoking History: Unknown if ever smoked Have you smoked in the past 12 months: No Cigars Per Day: 0 Hx Alcohol Use: No Drug/Substance Use Hx: No Substance Use Type: None Hx Substance Use Treatment: No Review of Systems - Review of Systems Constitutional: No: Chills, Fever, Weakness HEENTM: No: Symptoms Reported Respiratory: No: Cough, Shortness of Breath Cardiac (ROS): No: Chest Pain, Lightheadedness, Palpitations, Syncope ABD/GI: No: Constipated, Diarrhea, Nausea, Vomiting, Abdominal cramping : No: Symptoms Reported Musculoskeletal: No: Back Pain, Joint Pain, Muscle Pain Integumentary: Yes: See HPI, Change in Color Neurological: No: Headache, Numbness, Tingling, Tremors *Physical Exam - Vital Signs Last Vital Signs Temp Pulse Resp BP Pulse Ox 97.9 F 80 20 104/32 L 88 L 08/20/18 16:41 08/20/18 16:41 08/20/18 16:41 08/20/18 16:41 08/20/18 16:41 - Physical Exam General Appearance: Yes: Appropriately Dressed, Obese. No: Apparent Distress HEENT: positive: EOMI, ENRIQUE, Pharynx Normal Neck: positive: Trachea midline, Supple. negative: Lymphadenopathy (R), Lymphadenopathy (L) Respiratory/Chest: positive: Lungs Clear, Normal Breath Sounds Cardiovascular: positive: Regular Rhythm, Regular Rate Vascular Pulses: Carotid (R): 2+, Carotid (L): 2+, Dorsalis-Pedis (R): 1+, Doralis-Pedis (L): 1+ Gastrointestinal/Abdominal: positive: Normal Bowel Sounds, Soft. negative: Tender Musculoskeletal: positive: Normal Inspection. negative: CVA Tenderness Extremity: positive: Normal Capillary Refill, Pelvis Stable, Pedal Edema. 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 NML intact, Fully Oriented, Alert, Normal Mood/ Affect, Normal Response, Motor Strength 5/5 Moderate Sedation - Procedure Monitoring Vital Signs: Procedure Monitoring Vital Signs Temperature 97.9 F 08/20/18 16:41 Pulse Rate 80 08/20/18 16:41 Respiratory Rate 20 08/20/18 16:41 Blood Pressure 104/32 L 08/20/18 16:41 O2 Sat by Pulse Oximetry (%) 88 L 08/20/18 16:41 ED Treatment Course - LABORATORY CBC & Chemistry Diagram: 08/20/18 17:06 08/20/18 17:06 - ADDITIONAL ORDERS Additional order review: Laboratory Results 08/20/18 08/20/18 17:06 17:06 PT with INR 38.40 H INR 3.22 H Sodium 132 L Potassium 4.0 Chloride 93 L Carbon Dioxide 26 Anion Gap 14 BUN 56 H Creatinine 8.5 H* Creat Clearance w eGFR 4.57 Random Glucose 99 Calcium 9.2 08/20/18 17:06 RBC 3.89 MCV 94.0 MCHC 34.1 RDW 15.4 MPV 8.7 Neutrophils % 68.5 Lymphocytes % 17.7 D Monocytes % 12.6 H Eosinophils % 0.1 Basophils % 1.1 Medical Decision Making - Medical Decision Making 08/20/18 23:19 Pt is a 77yo F with PMH of ESRD on HD MWF, DM, Afib (on Coumadin), CHF, HTN, HLD sent to ED from superintendent division office for gangrene. Pt states that she noticed the discoloration in her toes for about 1 week. She does not recall an inciting event. She saw her superintendent division who told her to come to the emergency room. She denies numbness/tingling, pain, fever, chills. Ddx includes but not limited to nec fac, gangrene Most likely dry gangrene. No exudates, not tender, no crepitus. labs and xray ordered by rme. added blood cultures, esr, crp, ekg. Pt allergic to pcn. in 2017, pt was given vanc, aztreonam and azithromycin. Will give 1g vanc and 1g aztreonam labs significant for Laboratory Tests 08/20/18 08/20/18 08/20/18 17:06 17:06 17:06 WBC 13.7 H ESR INR 3.22 H Creatinine 8.5 H* (baseline) C-Reactive Protein 08/20/18 08/20/18 21:30 21:30 WBC ESR 94 H INR Creatinine C-Reactive Protein 12.1 H 08/20/18 23:21 Pt admitted to med/surg *DC/Admit/Observation/Transfer Diagnosis at time of Disposition: Gangrene - Discharge Dispostion Condition at time of disposition: Good Decision to Admit order: Yes - Referrals - Patient Instructions - Post Discharge Activity
[2018-08-20] MEDS ORDERED: VANCOMYCIN 1 GM in D5W (PRE-DOCKED) 1,000 MG/250 ML IVPB ONE (21:48)
[2018-08-20] MEDS ORDERED: AZTREONAM 1 GM in DEXTROSE 5%-WATER - 50 ML IVPB ONE (21:57)
--- NOTE | 2018-08-20 22:53 | HP ---
Admitting History and Physical - Primary Care Physician PCP: Kishore David - Admission Chief Complaint: Wound to toes/foot History of Present Illness: This is a 77 y/o woman with a PMHx of ESRD (HD- MWF), DM, Afib (on Coumadin), CHF, HTN, HLD. Who presents to the ED from the criminal legal assistant office for gangrene. Pt states that she noticed the discoloration in her toes for about 1 week. She does not recall an inciting event. She saw her criminal legal assistant who told her to come to the emergency room. She denies numbness/tingling, pain, fever, chills. History Source: Patient Limitations to Obtaining History: No Limitations - Past Medical History BARREL RACER: Yes: CVA Cardiovascular: Yes: AFIB, HTN, Hyperlipdemia. No: CAD, CHF Gastrointestinal: Yes: Constipation Renal/: Yes: Renal Failure, Hemodialysis, Other (renal cysts see HPI) Heme/Onc: Yes: Anemia Endocrine: Yes: Diabetes Mellitus - Past Surgical History Past Surgical History: Yes: Appendectomy, AV Fistula/Graft, Cholecystectomy, Hernia Repair - Smoking History Smoking history: Unknown if ever smoked Have you smoked in the past 12 months: No - Alcohol/Substance Use Hx Alcohol Use: No History of Substance Use: reports: None - Social History Usual Living Arrangement: Yes: With Spouse, With Child ADL: Independent History of Recent Travel: No Home Medications - Allergies Allergies/Adverse Reactions: Allergies Allergy/AdvReac Type Severity Reaction Status Date / Time Penicillins Allergy Swelling Verified 08/20/18 16:41 - Home Medications Home Medications: Ambulatory Orders Calcitriol 0.5 mcg PO DAILY 08/20/18 Folic Acid/Vit B Complex and C [Nayla-Mahi Tablet] 0.8 mg PO DAILY 08/20/18 Glimepiride [Amaryl -] 4 mg PO DAILY 08/20/18 Metoprolol Succinate [Toprol Xl -] 25 mg PO DAILY 08/20/18 Sertraline HCl [Zoloft -] 25 mg PO DAILY 08/20/18 Sevelamer Carbonate [Renvela] 2,400 mg PO CM 08/20/18 Sodium Bicarbonate 10 mg PO DAILY 08/20/18 Warfarin Na [Coumadin] 10 mg PO DAILY 08/20/18 Family Disease History - Family Disease History Family Disease History: Diabetes: Sister (), CA: Father (prostate Ca; ) Review of Systems - Review of Systems Constitutional: reports: No Symptoms Eyes: reports: No Symptoms HENT: reports: No Symptoms Neck: reports: No Symptoms Cardiovascular: reports: No Symptoms Respiratory: reports: No Symptoms Gastrointestinal: reports: No Symptoms Genitourinary: reports: No Symptoms Breasts: reports: No Symptoms Reported Musculoskeletal: reports: No Symptoms Integumentary: reports: Erythema, Wound Neurological: reports: No Symptoms Endocrine: reports: No Symptoms Hematology/Lymphatic: reports: No Symptoms Psychiatric: reports: No Symptoms Pain Intensity: 0 Physical Examination Vital Signs: Vital Signs Temperature 97.9 F 08/20/18 16:41 Pulse Rate 80 08/20/18 16:41 Respiratory Rate 20 08/20/18 16:41 Blood Pressure 104/32 L 08/20/18 16:41 O2 Sat by Pulse Oximetry (%) 88 L 08/20/18 16:41 Constitutional: Yes: Well Nourished, No Distress, Calm Eyes: Yes: WNL, Conjunctiva Clear, EOM Intact, PERRL HENT: Yes: WNL, Atraumatic, Normocephalic Neck: Yes: WNL, Supple, Trachea Midline Cardiovascular: Yes: WNL, Regular Rate and Rhythm, S1, S2 Respiratory: Yes: WNL, Regular, CTA Bilaterally Gastrointestinal: Yes: WNL, Normal Bowel Sounds, Soft, Abdomen, Obese ...Rectal Exam: Yes: Deferred Renal/: Yes: Anuria (ESRD) Breast(s): Yes: WNL Musculoskeletal: Yes: WNL Extremities: Yes: Other (AV Fistula - RUE +thrill) Edema: Yes Edema: LLE: 1+, RLE: 1+ Peripheral Pulses WNL: Yes Peripheral Pulses: Left Doralis Pedis: 1+, Right Dorsalis Pedis: 1+ Wound/Incision: Yes: Open to air, Reddened, Other (Gangrenous right toes #4,5, left great toe with erythema to right foot and left toe #5) Neurological: Yes: WNL, Alert, Oriented, Cran Nerves II-XII Intact ...Motor Strength: WNL Psychiatric: Yes: WNL, Alert, Oriented Labs: CBC, BMP 08/20/18 17:06 03/19/19 17:06 Laboratory Results - last 24 hr 08/20/18 08/20/18 08/20/18 17:06 17:06 17:06 WBC 13.7 H RBC 3.89 Hgb 12.5 Hct 36.5 D MCV 94.0 MCH 32.1 MCHC 34.1 RDW 15.4 Plt Count 243 D MPV 8.7 Absolute Neuts (auto) 9.4 H Neutrophils % 68.5 Lymphocytes % 17.7 D Monocytes % 12.6 H Eosinophils % 0.1 Basophils % 1.1 Nucleated RBC % 0 ESR PT with INR 38.40 H INR 3.22 H Sodium 132 L Potassium 4.0 Chloride 93 L Carbon Dioxide 26 Anion Gap 14 BUN 56 H Creatinine 8.5 H* Creat Clearance w eGFR 4.57 Random Glucose 99 Calcium 9.2 C-Reactive Protein 08/20/18 08/20/18 21:30 21:30 WBC RBC Hgb Hct MCV MCH MCHC RDW Plt Count MPV Absolute Neuts (auto) Neutrophils % Lymphocytes % Monocytes % Eosinophils % Basophils % Nucleated RBC % ESR 94 H PT with INR INR Sodium Potassium Chloride Carbon Dioxide Anion Gap BUN Creatinine Creat Clearance w eGFR Random Glucose Calcium C-Reactive Protein 12.1 H Intake & Output 08/18/18 08/19/18 08/20/18 08/21/18 23:59 23:59 23:59 23:59 Weight 111.7 kg 113.001 kg Current Medications Generic Name Dose Route Start Last Admin Trade Name Freq PRN Reason Stop Dose Admin Aztreonam 0.5 gm/ Dextrose 50 mls @ 100 mls/hr 08/21/18 08:00 IVPB Q12H [facility] Protocol Metoprolol Succinate 25 mg 08/21/18 10:00 Toprol Xl - PO DAILY [facility] Multivit/Ca Carb/B Cmplx/FA/Prenat tablet 08/21/18 10:00 Nephro-Mahi - PO DAILY [facility] Sertraline HCl 25 mg 08/21/18 10:00 Zoloft - PO DAILY [facility] Sevelamer Carbonate 2,400 mg 08/21/18 08:00 Renvela - PO CM ALDO Sodium Bicarbonate 10 mg 08/21/18 10:00 Sodium Bicarbonate - PO DAILY [facility] Imaging - Results Chest X-ray: Pending X-ray: Pending EKG: Image Reviewed Assessment/Plan This is a 77 y/o woman admitted for Gangrene of b/l Toes, Cellulitis of R- Foot for further evaluation of their emergent condition. Plan: Admit to floor Aztreonam, Vancomycin given in ED Appreciate Vascular consult Appreciate ID consult Appreciate Nephrology consult for HD management Will continue Aztreonam renal dosing Will defer Vancomcyin dosing to ID and Nephrology Vanc trough in am HD: M/W/F Monitor CBC, BMP Neurovascular checks Continue home meds Elevate extremities Chest Xray-pending B/L Foot Xray- pending FEN- fluid restriction, replete lytes, Renal Low Na Diet DVT ppx- OOB, SCDs, Heparin SQ Dispo: Requires Inpatient Care Visit type - Emergency Visit Emergency Visit: Yes ED Registration Date: 08/20/18 Care time: The patient presented to the Emergency Department on the above date and was hospitalized for further evaluation of their emergent condition. - New Patient This patient is new to me today: Yes Date on this admission: 08/20/18 - Critical Care Critical Care patient: No
[2018-08-20] MEDS ORDERED: VANCOMYCIN 1 GRAM (PRE-DOCKED) 1,000 MG/250 ML BAG IVPB ONE (23:04)
[2018-08-21 08:02] LABS: BASO % 0.4 % (0-2.0); EOS % 0.2 % (0-4.5); HEMATOCRIT 32.4 % (32.4-45.2); HEMOGLOBIN 10.9 GM/dL (10.7-15.3); LYMPH % 14.4 % (8-40); MCH 31.7 pg (25.7-33.7); MCHC 33.7 g/dl (32.0-36.0); MEAN PLT VOLUME 8.6 fl (7.5-11.1); MONO % 14.4 % (3.8-10.2); NEUT % 70.6 % (42.8-82.8); PLATELET COUNT 213 K/MM3 (134-434); RBC 3.45 M/mm3 (3.60-5.2); RDW 15.4 % (11.6-15.6); WHITE BLOOD COUNT 10.5 K/mm3 (4.0-10.0)
[2018-08-21 08:28] LABS: ANION GAP 11 MMOL/L (8-16); BLOOD UREA NITROGEN 64 mg/dL (7-18); CALCIUM 8.9 mg/dL (8.5-10.1); CHLORIDE 92 mmol/L (98-107); CO2 28 mmol/L (21-32); GLUCOSE,RANDOM 123 mg/dL (74-106); POTASSIUM 3.8 mmol/L (3.5-5.1); SODIUM 130 mmol/L (136-145)
[2018-08-21 08:40] LABS: CREATININE 9.2 mg/dL (0.55-1.3)
--- NOTE | 2018-08-21 08:54 | CONSULT ---
- Consultation REQUESTING PROVIDER: Narciso Alarcon DO - Vascular Surgery CONSULT REQUEST: We have been asked to surgically evaluate this patient's bilat feet dry gangrene PCP: Kishore David HPI: Called to dandre 77 yo female w/ PMHx as noted below. Sent in to [facility] ED by her Podiartist (Jacqueline) for further evaluation of her bilat feet dry gangrene. States she noticed the discoloration in her toes for about 1 week. [facility]. Denies n/v/f/c, CP, palpitations, SOB, SOSA, numbness/tingling or rest pain to her toes. PMHx: CVA, AFIB, HTN, Hyperlipdemia. Constipation. Renal Failure on HD (--) , Renal cysts, Anemia, Diabetes Mellitus, CHF, PSHx: Appendectomy, RUE AV Fistula, Cholecystectomy, Hernia Repair Home Meds Calcitriol 0.5 mcg PO DAILY 08/20/18 Folic Acid/Vit B Complex and C [Nayla-Mahi Tablet] 0.8 mg PO DAILY 08/20/18 Glimepiride [Amaryl -] 4 mg PO DAILY 08/20/18 Metoprolol Succinate [Toprol Xl -] 25 mg PO DAILY 08/20/18 Sertraline HCl [Zoloft -] 25 mg PO DAILY 08/20/18 Sevelamer Carbonate [Renvela] 2,400 mg PO CM 08/20/18 Sodium Bicarbonate 10 mg PO DAILY 08/20/18 Warfarin Na [Coumadin] 10 mg PO DAILY 08/20/18 Allergies: PCNs ROS: CONSTITUTIONAL: Absent: fever, chills, diaphoresis, generalized weakness, malaise, loss of appetite, weight change CARDIOVASCULAR: Absent: chest pain, syncope, palpitations, irregular heart rate , lightheadedness, peripheral edema RESPIRATORY: Absent: cough, shortness of breath, dyspnea with exertion, wheezing , stridor, hemoptysis GASTROINTESTINAL:Absent: abdominal pain, abdominal distension, nausea, vomiting , diarrhea, constipation, melena, hematochezia GENITOURINARY: Absent: dysuria, frequency, urgency, hesitancy, hematuria, flank pain, genital pain MUSCULOSKELETAL: Absent: myalgia, arthralgia, joint swelling, back pain, neck pain SKIN: Absent: rash, itching, pallor HEMATOLOGIC/IMMUNOLOGIC: Absent: easy bleeding, easy bruising, lymphadenopathy NEUROLOGIC: Absent: headache, focal weakness, paresthesias, dizziness, unsteady gait, seizure, mental status changes, PSYCHIATRIC: Absent: anxiety, depression, suicidal or homicidal ideation, hallucinations. PE: GENERAL: Well Nourished, No Distress, Calm HEAD: NC. AT. EYES: PERRL, sclera anicteric, conjunctiva clear. NECK: Normal ROM, supple without lymphadenopathy, JVD, or masses. LUNGS: CTA bilat HEART: Afib ABDOMEN: Soft, nontender, not distended, normoactive bowel sounds, no guarding, no rebound, no masses. No organomegaly. MUSCULOSKELETAL: Normal ROM at all joints. No bony deformities or tenderness. No CVA tenderness. UE: RUE AVF w/ palpable thrill. 2+ pulses, warm, well-perfused. No cyanosis. Cap refill <2 seconds. No peripheral edema. LE: LLE --> no calf tenderness. warm. dry gangrene to hallux. Dopplerable DP & PT RLE --> no calf tenderness. warm. dry gangrene to digits 1,3,5, skin changes to dorsal and plantar aspect (demarcated with pen). Dopplerable DP & PT NEUROL: Normal speech, gait not observed. PSYCH: Cooperative. Good eye contact. Appropriate mood and affect. Last Vital Signs Temp Pulse Resp BP Pulse Ox 98.9 F 76 20 114/56 L 98 08/21/18 04:34 08/21/18 04:34 08/21/18 04:34 08/21/18 04:34 08/21/18 04:34 CBC, BMP 08/21/18 07:15 08/21/18 07:15 INR, PTT INR 3.22 (0.83-1.09) H 08/20/18 17:06 Problem List - Problems (1) Gangrene Assessment/Plan: Cont management per medicine Podiatry to manage foot care Needs Aortogram with LE runoff on Sunday followed by HD Surgery to cont following Above discussed with Dr. Alarcon and agrees. Code(s): I96 - GANGRENE, NOT ELSEWHERE CLASSIFIED (2) Atrial fibrillation Code(s): I48.91 - UNSPECIFIED ATRIAL FIBRILLATION Qualifiers: Atrial fibrillation type: chronic Qualified Code(s): I48.2 - Chronic atrial fibrillation (3) Diabetes Code(s): E11.9 - TYPE 2 DIABETES MELLITUS WITHOUT COMPLICATIONS (4) ESRD (end stage renal disease) on dialysis Code(s): N18.6 - END STAGE RENAL DISEASE; Z99.2 - DEPENDENCE ON RENAL DIALYSIS Visit type - Case Type Case Type: ED Admission - Emergency Emergency Visit: Yes ED Registration Date: 08/20/18 Care time: The patient presented to the Emergency Department on the above date and was hospitalized for further evaluation of their emergent condition. - New patient This patient is new to me today: Yes Date on this admission: 08/21/18
[2018-08-21] MEDS ORDERED: AZTREONAM 0.5 GM in DEXTROSE 5%-WATER - 50 ML IVPB SCH (09:00)
[2018-08-21] MEDS: SEVELAMER CARBONATE 800 MG TAB (FP) PO SCH ×3 (09:00→17:05)
[2018-08-21] MEDS: metoPROLOL SUCCINATE 25 MG TAB.SR.24H (FP) PO SCH (09:52)
[2018-08-21] MEDS: AZTREONAM 0.5 GM in DEXTROSE 5%-WATER - 50 ML IVPB SCH ×2 (09:55→21:22)
--- NOTE | 2018-08-21 09:59 | PN ---
Progress Note (short form) - Note Progress Note: ID consult dictated multiple toes with dry gangrene with surrounding cellulitis no fever happened over the last month saw environmental scientists yesterday who sent her to ED penicillin allergy- mouth swells esrd for 15 years DM 2003 agree with kenroy by level and azactam needs vascular surgery evaluation (pending) suspected peripheral vascular disease Problem List - Problems (1) Gangrene Code(s): I96 - GANGRENE, NOT ELSEWHERE CLASSIFIED (2) Cellulitis Code(s): L03.90 - CELLULITIS, UNSPECIFIED (3) ESRD (end stage renal disease) on dialysis Code(s): N18.6 - END STAGE RENAL DISEASE; Z99.2 - DEPENDENCE ON RENAL DIALYSIS (4) Diabetes Code(s): E11.9 - TYPE 2 DIABETES MELLITUS WITHOUT COMPLICATIONS (5) Diabetes mellitus, insulin dependent (IDDM), uncontrolled Code(s): E10.65 - TYPE 1 DIABETES MELLITUS WITH HYPERGLYCEMIA (6) Penicillin allergy Code(s): Z88.0 - ALLERGY STATUS TO PENICILLIN
[2018-08-21] MEDS ORDERED: SODIUM BICARBONATE 325 MG TABLET PO SCH (10:00)
[2018-08-21] MEDS ORDERED: SODIUM CHLORIDE 250 ML IV PRN (10:32)
[2018-08-21] MEDS: SERTRALINE HCL 25 MG TABLET (FP) PO SCH (10:33)
[2018-08-21] MEDS: VITAMIN B COMP W-C 1 EA TABLET PO SCH (10:33)
--- NOTE | 2018-08-21 12:05 | EKG ---
Test Reason : Blood Pressure : / mmHG Vent. Rate : 080 BPM Atrial Rate : 086 BPM P-R Int : 000 ms QRS Dur : 114 ms QT Int : 430 ms P-R-T Axes : 000 -45 027 degrees QTc Int : 495 ms ATRIAL FIBRILLATION LEFT AXIS DEVIATION LOW VOLTAGE QRS CANNOT RULE OUT ANTERIOR INFARCT (CITED ON OR BEFORE 21-AUG-2018) ABNORMAL ECG WHEN COMPARED WITH ECG OF 12-NOV-2016 11:14, T WAVE INVERSION NO LONGER EVIDENT IN LATERAL LEADS QT HAS LENGTHENED Confirmed by KEKE ESPINOZA, MAYRA ([id number]) on 08/21/2018 12:04:50 PM Referred By: Confirmed By:MAYRA DAVIES MD
--- NOTE | 2018-08-21 13:06 | CONSULT ---
Consult - text type - Consultation Consultation Note: Renal Consult for ESRD on HD This is a 77 year old woman with hx of ESRD on HD, DM, Afib on Coumadin, CHF, Hypertension, HLD who presented with 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 Pt reports that she had a small wound there for about 2 weeks she was treating on her own. Was referred to come to the ER by podiatry. Denies any fever, chills, pain, sob, N/V/D, AKERS, confusion or lethargy. Last dialysis was Sunday. PMhx: as above Allergies: NKDA Family hx: NC Social Hx: No T/A/D ROS: as per HPI, all other pertinent ros negative Home Medications Medication Instructions Recorded Calcitriol 0.5 mcg PO DAILY 08/20/18 Folic Acid/Vit B Complex and C 0.8 mg PO DAILY 08/20/18 [Nayla-Mahi Tablet] Glimepiride [Amaryl -] 4 mg PO DAILY 08/20/18 Metoprolol Succinate [Toprol Xl -] 25 mg PO DAILY 08/20/18 Sertraline HCl [Zoloft -] 25 mg PO DAILY 08/20/18 Sevelamer Carbonate [Renvela] 2,400 mg PO CM 08/20/18 Sodium Bicarbonate 10 mg PO DAILY 08/20/18 Warfarin Na [Coumadin] 10 mg PO DAILY 08/20/18 Vital Signs Temperature 98.8 F 08/21/18 10:55 Pulse Rate 78 08/21/18 12:00 Respiratory Rate 18 08/21/18 12:00 Blood Pressure 85/52 L 08/21/18 12:00 O2 Sat by Pulse Oximetry (%) 98 08/21/18 04:34 Intake & Output 08/18/18 08/19/18 08/20/18 08/21/18 23:59 23:59 23:59 23:59 Intake Total 0 Balance 0 Weight 111.7 kg 113.001 kg NAD awake and alert neck supple, no JVD irregular, no M/R CTA soft, obese, NT/ND no LE edema, right foot with dry gangene on toes. No cyanosis, foot is warm. no focal neurologic defects CBC, BMP 08/21/18 07:15 08/21/18 07:15 Current Medications Aztreonam 0.5 gm/ Dextrose 50 mls @ 100 mls/hr IVPB BID [facility]; Protocol Last Admin: 08/21/18 09:55 Dose: 100 mls/hr Sodium Chloride (Normal Saline -) 250 mls @ 3,000 mls/hr IV PRN PRN PRN Reason: Hypotension during Dialysis Stop: 08/22/18 10:32 Metoprolol Succinate (Toprol Xl -) 25 mg PO DAILY [facility] Last Admin: 08/21/18 09:52 Dose: Not Given Multivit/Ca Carb/B Cmplx/FA/Prenat (Nephro-Mahi -) 1 tablet PO DAILY [facility] Last Admin: 08/21/18 10:33 Dose: Not Given Sertraline HCl (Zoloft -) 25 mg PO DAILY [facility] Last Admin: 08/21/18 10:33 Dose: Not Given Sevelamer Carbonate (Renvela -) 2,400 mg PO CM [facility] Last Admin: 08/21/18 11:33 Dose: Not Given Sodium Bicarbonate (Sodium Bicarbonate -) 10 mg PO DAILY [facility] 77 year old woman with hx of ESRD on HD, DM, Afib on Coumadin, CHF, Hypertension, HLD who presented with 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 #Gangrene of Foot r/o vascular insufficiency #ESRD on HD #DM #CKD related Anemia #Chronic Hypotension #Afib on Coumadin Pt currently getting dialysis. UF limited to 1L because of hypotension. Pt usually takes midodrine throughout the day for orthostatic hypotesnion. will continue on MWF HD schedule while in the hosptial. Renal diet and 1.2L fluid restriction. Vascular and Podiatry follow up. Abx as per ID, will redose Vanco following dialysis today Hgb at goal, holding BRAD for now Restart Midorine TID A/C as per primary Thank you Alon Page DO
[2018-08-21] MEDS ORDERED: VANCOMYCIN 1 GM in D5W (PRE-DOCKED) 1,000 MG/250 ML IVPB ONE (13:08)
[2018-08-21] MEDS: MIDODRINE HCL 5 MG TABLET PO SCH ×2 (14:37→17:05)
[2018-08-21] MEDS ORDERED: PT OWN MED DRAWER 7, Y5N ONE ×2 (17:04→20:56)
--- NOTE | 2018-08-21 17:30 | CONS ---
DATE OF CONSULTATION: DATE OF DICTATION: 08/21/2018 HISTORY OF PRESENT ILLNESS: This is a 77-year-old woman with a history of diabetes since 2004, end-stage renal disease for the last 15 years. She has a history of atrial fibrillation and is on Toprol and Coumadin as well. She noted about a month ago that she developed ulcers on her feet. She had had these hard areas on her toes that became blackened. She reports the big toe of her left foot and pinky toe of her right foot now have these lesions. She went to see her mineral mixer, who referred her to the emergency room. She denies any fevers or chills. She otherwise feels well. PAST MEDICAL HISTORY: Notable for atrial fibrillation, hypertension, hyperlipidemia. She has had a stroke in the past. She has a history of renal failure, is on hemodialysis. Has history of anemia and diabetes. PAST SURGICAL HISTORY: Notable for AV fistula and graft. The fistula was recently done at [facility] by a vascular surgeon with [facility] and has not been used. She has a graft that is currently being used. She has history of appendectomy, cholecystectomy, and hernia repair. SOCIAL HISTORY: There is no history of cigarette use. She lives with her daughter and her daughter's . She is originally from [place] and moved to [place] in 1968. ALLERGIES: She is allergic to PENICILLIN, which causes her mouth to swell. There is no recent history of any travel. MEDICATIONS: Her medications as an outpatient include calcitriol, folic acid, vitamin B and C, Amaryl, Toprol-XL, Zoloft, Renvela, sodium bicarbonate, and Coumadin. FAMILY HISTORY: Notable for diabetes and prostate cancer. REVIEW OF SYSTEMS: She denies any pain in her feet. She uses a walker, and she walks less than a block. She says she stops generally because she gets short of breath, so she is not able to confirm whether she has claudication as well. She denies neuropathy in her feet. PHYSICAL EXAMINATION: Vital Signs: Temperature is 98.4, pulse of 95. Blood pressure is 90/52. Respiratory rate is 18. HEENT: She is normocephalic. Her eyes are anicteric. She has no thrush. Neck: Supple. Lungs: Her clear to auscultation. Heart: Regular rate and rhythm. Abdomen: Soft, nontender. Extremities: Notable for blackened big toe on the left foot as well as the 4th and 5th toe on the right foot. Her 1st and 3rd toe as well as the 5th toe are blackened. She has evidence of dry gangrene as well as erythema of the dorsum of the right foot. No pulses are palpable. LABORATORY: Her white count is 13.7 on admission, today 10.5. Hemoglobin 10.9. Platelets are 213. Sedimentation rate is 94. Her INR is 3. BUN and creatinine are 64 and 9.2. CRP is 12. Blood cultures are pending. X-rays of the foot are pending. SUMMARY: This is a 77-year-old woman with multiple toes with dry gangrene with surrounding cellulitis. She has no fever. This has been ongoing for a month. I would be concerned about arterial disease and vascular insufficiency given the gangrene. I would agree with vancomycin by level. I would continue the Azactam given her history of PENICILLIN allergy. I would follow her vancomycin dosing by level. We are awaiting Vascular Surgery evaluation at this time. Further recommendations to follow. SIM MARTINS M.D. [id number]
--- NOTE | 2018-08-21 19:49 | PN ---
Progress Note, Physician Chief Complaint: ESRD B/L pedal gangrene History of Present Illness: Previous notes and events reviewed awake and alert NAD no complaints of chest pain, sob - Current Medication List Current Medications: Active Medications Aztreonam 0.5 gm/ Dextrose 50 mls @ 100 mls/hr IVPB BID [facility]; Protocol Last Admin: 08/21/18 09:55 Dose: 100 mls/hr Sodium Chloride (Normal Saline -) 250 mls @ 3,000 mls/hr IV PRN PRN PRN Reason: Hypotension during Dialysis Stop: 08/22/18 10:32 Metoprolol Succinate (Toprol Xl -) 25 mg PO DAILY [facility] Last Admin: 08/21/18 09:52 Dose: Not Given Midodrine (Proamatine -) 5 mg PO TID-MID [facility] Last Admin: 08/21/18 17:05 Dose: 5 mg Multivit/Ca Carb/B Cmplx/FA/Prenat (Nephro-Mahi -) 1 tablet PO DAILY [facility] Last Admin: 08/21/18 10:33 Dose: Not Given Sertraline HCl (Zoloft -) 25 mg PO DAILY [facility] Last Admin: 08/21/18 10:33 Dose: Not Given Sevelamer Carbonate (Renvela -) 2,400 mg PO CM [facility] Last Admin: 08/21/18 17:05 Dose: 2,400 mg - Objective Vital Signs: Vital Signs Temperature 98.2 F 08/21/18 18:00 Pulse Rate 89 08/21/18 18:00 Respiratory Rate 20 08/21/18 18:00 Blood Pressure 84/43 L 08/21/18 18:00 O2 Sat by Pulse Oximetry (%) 98 08/21/18 04:34 Constitutional: Yes: No Distress, Calm Eyes: Yes: Conjunctiva Clear HENT: Yes: Atraumatic Cardiovascular: Yes: Regular Rate and Rhythm Respiratory: Yes: Regular, CTA Bilaterally Gastrointestinal: Yes: Normal Bowel Sounds, Soft Genitourinary: Yes: Incontinence Musculoskeletal: Yes: Muscle Weakness Edema: Yes Wound/Incision: Yes: Clean/Dry Neurological: Yes: Alert, Oriented Psychiatric: Yes: Alert, Oriented Labs: CBC, BMP 08/21/18 07:15 08/21/18 07:15 INR, PTT INR 3.22 (0.83-1.09) H 08/20/18 17:06 Problem List - Problems (1) Gangrene Assessment/Plan: -vascular on board -podiatry consult placed -cardiology clearance for angioplasty--consult placed -will need CT angio of aorta and B/L lower extremities-possibly on same day of dialysis? -continue with IV vanco and azactam -pending foot xray -wbc 10.5 Code(s): I96 - GANGRENE, NOT ELSEWHERE CLASSIFIED (2) Atrial fibrillation Assessment/Plan: -INR 3.22-hold coumadin until in range -daily INR goal between 2-3 -cardio consult for clearance for angioplasty -metoprolol daily for rate control Code(s): I48.91 - UNSPECIFIED ATRIAL FIBRILLATION Qualifiers: Atrial fibrillation type: chronic Qualified Code(s): I48.2 - Chronic atrial fibrillation (3) ESRD (end stage renal disease) on dialysis Assessment/Plan: -renal on board -continue dialysis MWF -renal diet -monitor BUN/Cr daily -BUN/Cr 64/9.2 -sevelamer Code(s): N18.6 - END STAGE RENAL DISEASE; Z99.2 - DEPENDENCE ON RENAL DIALYSIS (4) Hypotension Assessment/Plan: -cont midrodine TID Code(s): I95.9 - HYPOTENSION, UNSPECIFIED Assessment/Plan see problem list dvt ppx
[2018-08-22] MEDS: SEVELAMER CARBONATE 800 MG TAB (FP) PO SCH ×3 (08:21→17:21)
[2018-08-22 08:54] LABS: HEMATOCRIT 31.9 % (32.4-45.2); HEMOGLOBIN 10.7 GM/dL (10.7-15.3); MCH 31.7 pg (25.7-33.7); MCHC 33.5 g/dl (32.0-36.0); MEAN CELL VOLUME 94.8 fl (80-96); MEAN PLT VOLUME 8.6 fl (7.5-11.1); PLATELET COUNT 222 K/MM3 (134-434); RBC 3.36 M/mm3 (3.60-5.2); RDW 15.5 % (11.6-15.6)
[2018-08-22 09:11] LABS: INR 2.61 (0.83-1.09); PROTHROMBIN TIME (PATIENT) 31.1 SEC (9.7-13.0)
[2018-08-22 09:18] LABS: ALBUMIN 2.8 g/dl (3.4-5.0); ALK PHOS 65 U/L (45-117); ANION GAP 9 MMOL/L (8-16); BILIRUBIN,TOTAL 0.4 mg/dL (0.2-1); BLOOD UREA NITROGEN 48 mg/dL (7-18); CHLORIDE 99 mmol/L (98-107); CO2 30 mmol/L (21-32); CREATININE 7.1 mg/dL (0.55-1.3); GLUCOSE,RANDOM 153 mg/dL (74-106); POTASSIUM 4.6 mmol/L (3.5-5.1); SGOT/AST 9 U/L (15-37); SGPT/ALT 12 U/L (13-61); SODIUM 138 mmol/L (136-145); TOT PROT 6.7 g/dl (6.4-8.2)
[2018-08-22] MEDS ORDERED: PT OWN MED DRAWER 7, Y5N ONE ×3 (09:27→17:15)
--- NOTE | 2018-08-22 09:31 | CONSULT ---
Consult Consult Specialty:: Podiatry Reason for Consultation:: Roosevelt. PVD. - History of Present Illness Chief Complaint: Roosevelt referred to hospital by Dr. Hall. History of Present Illness: 2.5 weeks of roosevelt right foot. Applying Bacitracin. 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 No: CAD, CHF Gastrointestinal: Yes: Constipation Renal/: Yes: Renal Failure, Hemodialysis, Other (renal cysts see HPI) Endocrine: Yes: Diabetes Mellitus Additional Medical History: Right superficial breast mass which she noted for the last 2 weeks and has enlarged in size. Minimal drainage has been noted. - Past Surgical History Past Surgical History: Yes: Appendectomy, AV Fistula/Graft, Cholecystectomy, Hernia Repair - Alcohol/Substance Use Hx Alcohol Use: No History of Substance Use: reports: None - Smoking History Smoking history: Unknown if ever smoked Have you smoked in the past 12 months: No - Social History ADL: Independent History of Recent Travel: No Home Medications - Allergies Allergies/Adverse Reactions: Allergies Allergy/AdvReac Type Severity Reaction Status Date / Time Penicillins Allergy Swelling Verified 08/20/18 16:41 - Home Medications Home Medications: Ambulatory Orders Calcitriol 0.5 mcg PO DAILY 08/20/18 Folic Acid/Vit B Complex and C [Nayla-Mahi Tablet] 0.8 mg PO DAILY 08/20/18 Glimepiride [Amaryl -] 4 mg PO DAILY 08/20/18 Metoprolol Succinate [Toprol Xl -] 25 mg PO DAILY 08/20/18 Sertraline HCl [Zoloft -] 25 mg PO DAILY 08/20/18 Sevelamer Carbonate [Renvela] 2,400 mg PO CM 08/20/18 Sodium Bicarbonate 10 mg PO DAILY 08/20/18 Warfarin Na [Coumadin] 10 mg PO DAILY 08/20/18 Family Disease History - Family Disease History Family Disease History: Diabetes: Sister (), CA: Father (prostate Ca; ) Physical Exam Vital Signs: Vital Signs Temperature 99.8 F H 08/22/18 06:00 Pulse Rate 109 H 08/22/18 06:00 Respiratory Rate 20 08/22/18 06:00 Blood Pressure 96/50 L 08/22/18 06:00 O2 Sat by Pulse Oximetry (%) 98 08/21/18 04:34 Extremities: Yes: Other (+gangarene toes 1,3,5. +cellulitis dorsum right foot improving according to demarcation lines that were drawn, +pvd, -drainage, +dry gangarene, +dusky left big toe as well,) Labs: CBC, BMP 08/22/18 07:50 08/22/18 07:50 Imaging - Results X-ray: Image Reviewed Assessment/Plan Gangarene right PVD Dusky left big toe Discussed with daughter and patient. Patient having vascular studies first. Daughter and patient agreed to debridement of bone and soft tissue TMA all of right foot. Awaiting vascular clearance to schedule procedure. Daughter Tanesha works at [employer] and would like her mom to go there upon Dc. Will follow. Concerned about dusky big toe left. ID and Vascular on case.
[2018-08-22] MEDS: SERTRALINE HCL 25 MG TABLET (FP) PO SCH (10:06)
[2018-08-22] MEDS: VITAMIN B COMP W-C 1 EA TABLET PO SCH (10:06)
[2018-08-22] MEDS: MIDODRINE HCL 5 MG TABLET PO SCH ×3 (10:06→17:21)
[2018-08-22] MEDS: AZTREONAM 0.5 GM in DEXTROSE 5%-WATER - 50 ML IVPB SCH (10:06)
[2018-08-22] MEDS: metoPROLOL SUCCINATE 25 MG TAB.SR.24H (FP) PO SCH (10:06)
--- NOTE | 2018-08-22 10:25 | PN ---
Progress Note, Physician Chief Complaint: ESRD B/L pedal gangrene History of Present Illness: Previous notes and events reviewed awake and alert NAD no complaints of chest pain, sob - Current Medication List Current Medications: Active Medications Aztreonam 0.5 gm/ Dextrose 50 mls @ 100 mls/hr IVPB BID [facility]; Protocol Last Admin: 08/22/18 10:06 Dose: 100 mls/hr Sodium Chloride (Normal Saline -) 250 mls @ 3,000 mls/hr IV PRN PRN PRN Reason: Hypotension during Dialysis Stop: 08/22/18 10:32 Metoprolol Succinate (Toprol Xl -) 25 mg PO DAILY [facility] Last Admin: 08/22/18 10:06 Dose: Not Given Midodrine (Proamatine -) 5 mg PO TID-MID [facility] Last Admin: 08/22/18 10:06 Dose: 5 mg Multivit/Ca Carb/B Cmplx/FA/Prenat (Nephro-Mahi -) 1 tablet PO DAILY [facility] Last Admin: 08/22/18 10:06 Dose: 1 tablet Sertraline HCl (Zoloft -) 25 mg PO DAILY [facility] Last Admin: 08/22/18 10:06 Dose: 25 mg Sevelamer Carbonate (Renvela -) 2,400 mg PO CM [facility] Last Admin: 08/22/18 08:21 Dose: 2,400 mg - Objective Vital Signs: Vital Signs Temperature 99.8 F H 08/22/18 06:00 Pulse Rate 109 H 08/22/18 06:00 Respiratory Rate 20 08/22/18 06:00 Blood Pressure 96/50 L 08/22/18 06:00 O2 Sat by Pulse Oximetry (%) 98 08/21/18 04:34 Constitutional: Yes: No Distress, Calm Eyes: Yes: Conjunctiva Clear HENT: Yes: Atraumatic Neck: Yes: Supple Cardiovascular: Yes: Regular Rate and Rhythm Respiratory: Yes: Regular, CTA Bilaterally Gastrointestinal: Yes: Normal Bowel Sounds, Soft Musculoskeletal: Yes: Muscle Weakness Extremities: Yes: Other (RUE fistula) Edema: Yes Edema: LLE: 1+, RLE: 1+ Integumentary: Yes: Other (B/L pedal gangrene) Wound/Incision: Yes: Clean/Dry Neurological: Yes: Alert Psychiatric: Yes: Alert Labs: CBC, BMP 08/22/18 07:50 08/22/18 07:50 INR, PTT INR 2.61 (0.83-1.09) H 08/22/18 07:50 Microbiology 08/20/18 21:45 Blood - Peripheral Venous Blood Culture - Preliminary NO GROWTH OBTAINED AFTER 24 HOURS, INCUBATION TO CONTINUE FOR 4 DAYS. 08/20/18 21:30 Blood - Peripheral Venous Blood Culture - Preliminary NO GROWTH OBTAINED AFTER 24 HOURS, INCUBATION TO CONTINUE FOR 4 DAYS. Problem List - Problems (1) Gangrene Assessment/Plan: -vascular on board -podiatry on board--possible debridement of bone and tissue TMA all right foot -cardiology clearance for angioplasty--consult placed -will need CT angio of aorta and B/L lower extremities-possibly on same day of dialysis? -continue with IV vanco and azactam -B/L foot xray reviewed--recommend for more complete evaluation MRI or bone scan to r/o osteo -wbc 10.0 Code(s): I96 - GANGRENE, NOT ELSEWHERE CLASSIFIED (2) Atrial fibrillation Assessment/Plan: -INR 2.6-restart coumadin -daily INR goal between 2-3 -cardio consult for clearance for angioplasty -metoprolol daily for rate control Code(s): I48.91 - UNSPECIFIED ATRIAL FIBRILLATION Qualifiers: Atrial fibrillation type: chronic Qualified Code(s): I48.2 - Chronic atrial fibrillation (3) ESRD (end stage renal disease) on dialysis Assessment/Plan: -renal on board -continue dialysis MWF -renal diet -monitor BUN/Cr daily -BUN/Cr 48/7.1 -sevelamer Code(s): N18.6 - END STAGE RENAL DISEASE; Z99.2 - DEPENDENCE ON RENAL DIALYSIS (4) Hypotension Assessment/Plan: -cont midrodine TID Code(s): I95.9 - HYPOTENSION, UNSPECIFIED Assessment/Plan see problem list dvt ppx
[2018-08-22 12:25] LABS: HBSAG SCREEN Negative (Negative); HEP A AB, IGM Negative (Negative); HEP B CORE AB, TOT Negative (Negative)
[2018-08-22] MEDS ORDERED: SODIUM CHLORIDE 250 ML IV PRN (13:10)
--- NOTE | 2018-08-22 13:10 | PN ---
Progress Note (short form) - Note Progress Note: Renal follow up for ESRD on HD Pt seen and examined at the bedside has no acute complaints denies any pain, sob, cp, abd pain, fever or chills s/p dialysis yesterday Vital Signs Temperature 99.0 F 08/22/18 10:00 Pulse Rate 99 H 08/22/18 10:00 Respiratory Rate 20 08/22/18 10:00 Blood Pressure 75/54 L 08/22/18 10:00 O2 Sat by Pulse Oximetry (%) 98 08/21/18 04:34 Intake & Output 08/19/18 08/20/18 08/21/18 08/22/18 23:59 23:59 23:59 23:59 Intake Total 835 100 Balance 835 100 Weight 111.7 kg 113.001 kg 112.973 kg NAD awake and alert irregular, no M/R CTA soft, obese, NT/ND CBC, BMP 08/22/18 07:50 08/22/18 07:50 Current Medications Aztreonam 0.5 gm/ Dextrose 50 mls @ 100 mls/hr IVPB BID [facility]; Protocol Last Admin: 08/22/18 10:06 Dose: 100 mls/hr Metoprolol Succinate (Toprol Xl -) 25 mg PO DAILY [facility] Last Admin: 08/22/18 10:06 Dose: Not Given Midodrine (Proamatine -) 5 mg PO TID-MID [facility] Last Admin: 08/22/18 10:06 Dose: 5 mg Multivit/Ca Carb/B Cmplx/FA/Prenat (Nephro-Mahi -) 1 tablet PO DAILY [facility] Last Admin: 08/22/18 10:06 Dose: 1 tablet Sertraline HCl (Zoloft -) 25 mg PO DAILY [facility] Last Admin: 08/22/18 10:06 Dose: 25 mg Sevelamer Carbonate (Renvela -) 2,400 mg PO CM [facility] Last Admin: 08/22/18 11:55 Dose: 2,400 mg 77 year old woman with hx of ESRD on HD, DM, Afib on Coumadin, CHF, Hypertension, HLD who presented with 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 #Gangrene of Foot r/o vascular insufficiency #ESRD on HD #DM #CKD related Anemia #Chronic Hypotension #Afib on Coumadin Continue Vascular work up, for CTA tomorrow before dialysis will continue on MWF dialysis schedule while inpatient Renal diet Continue phos binder continue Midodrine TID Thank you Alon Page DO
--- NOTE | 2018-08-22 16:35 | CON.CARD ---
Consult Consult Specialty:: Cardiology Referred by:: Dr. Hamm Reason for Consultation:: preop cardiac eval prior to peripheral angiogram - History of Present Illness Chief Complaint: LE gangrene History of Present Illness: 77 year old woman with pmh chronic systolic chf with moderate LV systolic dysfunction, afib, CVA, HLD, COPD, ESRD on HD, hypotension after HD, DMII, anemia, PAD admitted for b/l LE gangrene and ischemia for planned vascular and podiatry procedures. pt seen and examined with her at bedside. pt denies any history of chest pain either at rest or with exertion. she has chronic tian and her ET with her walker is limited to less than a block. denies any recent change in her chronic tian. Nuclear stress 12/10/13 moderate sized lateral ischemia, EF 36%. Echo 12/07/13 moderately reduced LV function. 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 No: CAD Gastrointestinal: Yes: Constipation Renal/: Yes: Renal Failure, Hemodialysis, Other (renal cysts see HPI) Endocrine: Yes: Diabetes Mellitus Additional Medical History: Right superficial breast mass which she noted for the last 2 weeks and has enlarged in size. Minimal drainage has been noted. - Past Surgical History Past Surgical History: Yes: Appendectomy, AV Fistula/Graft, Cholecystectomy, Hernia Repair - Alcohol/Substance Use Hx Alcohol Use: No History of Substance Use: reports: None - Smoking History Smoking history: Unknown if ever smoked Have you smoked in the past 12 months: No - Social History ADL: Independent History of Recent Travel: No Home Medications - Allergies Allergies/Adverse Reactions: Allergies Allergy/AdvReac Type Severity Reaction Status Date / Time Penicillins Allergy Swelling Verified 08/20/18 16:41 - Home Medications Home Medications: Ambulatory Orders Calcitriol 0.5 mcg PO DAILY 08/20/18 Folic Acid/Vit B Complex and C [Nayla-Mahi Tablet] 0.8 mg PO DAILY 08/20/18 Glimepiride [Amaryl -] 4 mg PO DAILY 08/20/18 Metoprolol Succinate [Toprol Xl -] 25 mg PO DAILY 08/20/18 Sertraline HCl [Zoloft -] 25 mg PO DAILY 08/20/18 Sevelamer Carbonate [Renvela] 2,400 mg PO CM 08/20/18 Sodium Bicarbonate 10 mg PO DAILY 08/20/18 Warfarin Na [Coumadin] 10 mg PO DAILY 08/20/18 Family Disease History - Family Disease History Family Disease History: Diabetes: Sister (), CA: Father (prostate Ca; ) Review of Systems - Review of Systems Constitutional: reports: Malaise, Weakness. denies: No Symptoms, Chills, Diaphoresis, Fever, Lethargy, Loss of Appetite, Night Sweats, Unintentional Wgt. Loss, Other Eyes: denies: No Symptoms, Blind Spots, Blurred Vision, Double Vision, Eye Pain , Floaters, Photophobia, Recent Change in Vision, Other HENT: denies: No Symptoms, Difficult Swallowing, Ear Discharge, Ear Pain, Epistaxis, Gingival Bleeding, Hearing Loss, Mouth Swelling, Nasal Congestion, Ocular Prosthesis, Throat Pain, Toothache, Ringing in Ears, Other Neck: denies: No Symptoms, Decreased ROM, Lumps, Pain on Movement, Stiffness, Swollen Glands, Tenderness, Other Cardiovascular: reports: Shortness of Breath. denies: No Symptoms, Chest Pain, Edema, Palpitations, Other Respiratory: reports: Exercise Intolerance, SOB on Exertion. denies: No Symptoms, Cough, Hemoptysis, Orthopnea, PND, Snoring, SOB, Wheezing, Other Gastrointestinal: denies: No Symptoms, Abdominal Pain, Bloating, Constipation, Diarrhea, Dysphagia, Indigestion, Melena, Nausea, Rectal Bleeding, Vomiting, Vomiting Blood, Other Genitourinary: denies: No Symptoms, Burning, Discharge, Dysuria, Flank Pain, Frequency, Hematuria, Incontinence, Lesions, Menses, Pain, Testicular Mass, Testicular Pain, Testicular Swelling, Urgency, Vaginal Bleeding, Other Breasts: denies: No Symptoms Reported, See HPI, Breast Implants, Discharge from Nipple, Lumps, Pain, Skin Changes, Other Musculoskeletal: reports: Extremity Pain. denies: No Symptoms, Back Pain, Crepitus, Decreased ROM, Joint Pain, Joint Swelling, Muscle Pain, Muscle Cramps , Muscle Weakness, Other Integumentary: denies: No Symptoms, Blister, Bruising, Change in Color, Eczema, Erythema, Incision, Lesions, Lump, Pallor, Pruritis, Rash, Wound, Other Neurological: denies: No Symptoms, Change in LOC, Change in Speech, Confusion, Dizziness, Headache, Incoordination, Numbness, Parasthesia, Pre-Existing Deficit , Seizure, Syncope, Tremors, Unsteady Gait, Weakness, Other Endocrine: denies: No Symptoms, Excessive Sweating, Flushing, Increased Hunger, Increased Thirst, Intolerance to Cold, Intolerance to Heat, Unexplained Weight Gain, Unexplained Weight Loss, Other Hematology/Lymphatic: denies: No Symptoms, Easily Bruised, Excessive Bleeding, Swollen Glands, Other Psychiatric: denies: No Symptoms, Altered Sleep Pattern, Anxiety, Depression, Hallucinations, Panic, Paranoia, Suicidal, Other - Risk Factors Known Risk Factors: Yes: Diabetes Mellitus, Hypercholesterolemia, Hypertension, Physical Inactivity, Prior [place] /Emb Stroke Vital Signs: Vital Signs Temperature 98.3 F 08/22/18 14:00 Pulse Rate 83 08/22/18 14:00 Respiratory Rate 21 H 08/22/18 14:00 Blood Pressure 106/49 L 08/22/18 14:00 O2 Sat by Pulse Oximetry (%) 98 08/21/18 04:34 Constitutional: Yes: No Distress, Calm Eyes: Yes: Conjunctiva Clear, EOM Intact HENT: Yes: Atraumatic, Normocephalic Neck: Yes: Supple, Trachea Midline Respiratory: Yes: Regular, Diminished. No: Rales, Rhonchi, SOB, Wheezes Gastrointestinal: Yes: Normal Bowel Sounds, Soft. No: Distention, Tenderness Cardiovascular: Yes: Pulse Irregular. No: Regular Rate and Rhythm, Bradycardia , Tachycardia, Gallop, Rub, Varicosities JVD: No Carotid Bruit: No PMI: Non-Displaced Heart Sounds: Yes: S1, S2. No: Split S2, S3, S4, Clicks, Gallop, Rub, Bruit Murmur: No: Systolic Murmur Edema: Yes Peripheral Pulses WNL: No Neurological: Yes: Alert, Oriented Psychiatric: Yes: Alert, Oriented - Other Data Labs, Other Data: CBC, BMP 08/22/18 07:50 08/22/18 07:50 INR, PTT INR 2.61 (0.83-1.09) H 08/22/18 07:50 ekg-afib 80bpm, possible anterior infarct age undetermined Echo: Report Reviewed Imaging - Results Chest X-ray: Report Reviewed, Image Reviewed EKG: Report Reviewed, Image Reviewed Other: Report Reviewed, Image Reviewed Assessment/Plan 77 year old woman with pmh chronic systolic chf with moderate LV systolic dysfunction, afib, CVA, HLD, COPD, ESRD on HD, hypotension after HD, DMII, anemia, PAD admitted for b/l LE gangrene and ischemia for planned vascular and podiatry procedures. pt seen and examined with her at bedside. pt denies any history of chest pain either at rest or with exertion. she has chronic tian and her ET with her walker is limited to less than a block. denies any recent change in her chronic tian. Nuclear stress 12/10/13 moderate sized lateral ischemia, EF 36%. Echo 12/07/13 moderately reduced LV function. Cardiac cath 2008 [facility]-reported non-obs CAD Preop cardiac evaluation for LE angiogram and possible surgical intervention for PAD and gangrene -pt has known chronic heart disease with moderate LV systolic dysfunction on prior echo, non-obs CAD on cardiac cath 2008, chronic Afib and multiple other cardiac risk factors -she has chronic tian which is unchanged recently and reports no history of recent chest pain -there is no current cardiac contraindications to the planned procedures -she is of significant cardiac risk however with no active cardiac issues and further cardiac testing at this time would be unlikely to change her perioperative risk -therefore would recommend to proceed without delay for additional cardiac work up -she is currently on warfarin with a therapeutic range INR. If warfarin needs to be held for her procedures (at the discretion of the surgeon) it may be held , would recommend to bridge with IV heparin through her procedures given her h/ o chronic afib and CVA -would cont metoprolol as long as her BP tolerates
--- NOTE | 2018-08-22 16:46 | PN ---
Progress Note (short form) - Note Progress Note: for imagintomorrow no complaints Vital Signs Period Temp Pulse Resp BP Sys/Prince Pulse Ox Last 24 Hr 98.2 F-99.8 F 81-109 20-21 75-106/42-54 cor-rrr lungs clear abd soft,nt ext gangrene right foot, big toe left foot CBC, BMP 08/22/18 07:50 08/22/18 07:50 Microbiology 08/20/18 21:45 Blood - Peripheral Venous Blood Culture - Preliminary NO GROWTH OBTAINED AFTER 24 HOURS, INCUBATION TO CONTINUE FOR 4 DAYS. 08/20/18 21:30 Blood - Peripheral Venous Blood Culture - Preliminary NO GROWTH OBTAINED AFTER 24 HOURS, INCUBATION TO CONTINUE FOR 4 DAYS. 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 penicillin allergy- mouth swells esrd for 15 years DM 2003 vascular surgery evaluation in progress penicillin allergy switch to tygacil at [facility] being planned Problem List - Problems (1) Gangrene Code(s): I96 - GANGRENE, NOT ELSEWHERE CLASSIFIED (2) Cellulitis Code(s): L03.90 - CELLULITIS, UNSPECIFIED (3) ESRD (end stage renal disease) on dialysis Code(s): N18.6 - END STAGE RENAL DISEASE; Z99.2 - DEPENDENCE ON RENAL DIALYSIS (4) Diabetes Code(s): E11.9 - TYPE 2 DIABETES MELLITUS WITHOUT COMPLICATIONS (5) Diabetes mellitus, insulin dependent (IDDM), uncontrolled Code(s): E10.65 - TYPE 1 DIABETES MELLITUS WITH HYPERGLYCEMIA (6) Penicillin allergy Code(s): Z88.0 - ALLERGY STATUS TO PENICILLIN
[2018-08-22] MEDS: WARFARIN NA 5 MG TABLET (UD) PO SCH (17:21)
[2018-08-22] MEDS ORDERED: TIGECYCLINE 100 MG in DEXTROSE 5%-WATER - 100 ML IVPB ONE (17:30)
--- NOTE | 2018-08-23 01:08 | CONSULT ---
Consult Consult Specialty:: endocrine Referred by:: angie vázquez Reason for Consultation:: diabetes mellitus /esrd - History of Present Illness Chief Complaint: toe infections History of Present Illness: 77 y/o woman with a PMHx of DM,ESRD (HD- MWF), Afib (on Coumadin), CHF, HTN, HLD. Who presents to ed,for bilateral gangrenous toe infections,she has noted the skin changes since iweek which she had been self treating,however was getting worse,she saw brush filler hand and was advised to present to ed. she denies trauma,fever chills nausea or vomiting. 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 No: CAD Gastrointestinal: Yes: Constipation Renal/: Yes: Renal Failure, Hemodialysis, Other (renal cysts see HPI) Endocrine: Yes: Diabetes Mellitus Additional Medical History: Right superficial breast mass which she noted for the last 2 weeks and has enlarged in size. Minimal drainage has been noted. - Past Surgical History Past Surgical History: Yes: Appendectomy, AV Fistula/Graft, Cholecystectomy, Hernia Repair - Alcohol/Substance Use Hx Alcohol Use: No History of Substance Use: reports: None - Smoking History Smoking history: Unknown if ever smoked Have you smoked in the past 12 months: No - Social History ADL: Independent History of Recent Travel: No Home Medications - Allergies Allergies/Adverse Reactions: Allergies Allergy/AdvReac Type Severity Reaction Status Date / Time Penicillins Allergy Swelling Verified 08/20/18 16:41 - Home Medications Home Medications: Ambulatory Orders Calcitriol 0.5 mcg PO DAILY 08/20/18 Folic Acid/Vit B Complex and C [Nayla-Mahi Tablet] 0.8 mg PO DAILY 08/20/18 Glimepiride [Amaryl -] 4 mg PO DAILY 08/20/18 Metoprolol Succinate [Toprol Xl -] 25 mg PO DAILY 08/20/18 Sertraline HCl [Zoloft -] 25 mg PO DAILY 08/20/18 Sevelamer Carbonate [Renvela] 2,400 mg PO CM 08/20/18 Sodium Bicarbonate 10 mg PO DAILY 08/20/18 Warfarin Na [Coumadin] 10 mg PO DAILY 08/20/18 Family Disease History - Family Disease History Family Disease History: Diabetes: Sister (), CA: Father (prostate Ca; ) Review of Systems - Review of Systems Constitutional: reports: Lethargy, Weakness Eyes: reports: No Symptoms HENT: reports: No Symptoms Neck: reports: No Symptoms Cardiovascular: reports: Shortness of Breath Respiratory: reports: Exercise Intolerance, SOB on Exertion Gastrointestinal: reports: Bloating Genitourinary: reports: No Symptoms Integumentary: reports: No Symptoms Neurological: reports: Weakness Endocrine: reports: No Symptoms Physical Exam Vital Signs: Vital Signs Temperature 99.8 F H 08/22/18 20:00 Pulse Rate 83 08/22/18 20:00 Respiratory Rate 20 08/22/18 21:00 Blood Pressure 100/48 L 08/22/18 20:00 O2 Sat by Pulse Oximetry (%) 98 08/21/18 04:34 Constitutional: Yes: Calm Eyes: Yes: EOM Intact HENT: Yes: Normocephalic Neck: Yes: Trachea Midline Cardiovascular: Yes: Pulse Irregular Respiratory: Yes: CTA Bilaterally Gastrointestinal: Yes: Normal Bowel Sounds ...Rectal Exam: Yes: Deferred Breast(s): Yes: WNL Musculoskeletal: Yes: WNL Extremities: Yes: Delayed Capillary Refill Edema: No Integumentary: Yes: Onychomycosis, Venous Stasis Changes Wound/Incision: Yes: Draining Neurological: Yes: Alert, Oriented Labs: CBC, BMP 08/22/18 07:50 08/22/18 07:50 Problem List - Problems (1) Diabetes 1.5, managed as type 2 Code(s): E13.9 - OTHER SPECIFIED DIABETES MELLITUS WITHOUT COMPLICATIONS (2) Cellulitis Code(s): L03.90 - CELLULITIS, UNSPECIFIED (3) Gangrene Code(s): I96 - GANGRENE, NOT ELSEWHERE CLASSIFIED (4) Penicillin allergy Code(s): Z88.0 - ALLERGY STATUS TO PENICILLIN (5) Acute electrocardiogram changes Code(s): R94.31 - ABNORMAL ELECTROCARDIOGRAM [ECG] [EKG] (6) Anemia Code(s): D64.9 - ANEMIA, UNSPECIFIED Qualifiers: Anemia type: other cause Other causes of anemia: chronic disease, kidney (7) Atrial fibrillation Code(s): I48.91 - UNSPECIFIED ATRIAL FIBRILLATION Qualifiers: Atrial fibrillation type: chronic Qualified Code(s): I48.2 - Chronic atrial fibrillation (8) Type 2 diabetes mellitus with diabetic peripheral angiopathy without gangrene Code(s): E11.51 - TYPE 2 DIABETES W DIABETIC PERIPHERAL ANGIOPATH W/O GANGRENE Assessment/Plan Current Active Problems diabetes mellitus pad diabetic neuropathy Cellulitis (Acute) Gangrene (Acute) Penicillin allergy (Acute) esrd ckd Abnormal Lab Results 08/21/18 08/22/18 08/22/18 11:00 07:50 07:50 RBC 3.36 L Hct 31.9 L PT with INR INR BUN Creatinine Random Glucose AST ALT Albumin Random Vancomycin 11.8 L Hepatitis A Ab Total Positive H 08/22/18 08/22/18 07:50 07:50 RBC Hct PT with INR 31.10 H INR 2.61 H BUN 48 H Creatinine 7.1 H Random Glucose 153 H AST 9 L ALT 12 L Albumin 2.8 L Random Vancomycin Hepatitis A Ab Total Laboratory Results - last 24 hr 08/21/18 08/21/18 08/22/18 11:00 11:00 07:50 WBC RBC Hgb Hct MCV MCH MCHC RDW Plt Count MPV PT with INR INR Sodium Potassium Chloride Carbon Dioxide Anion Gap BUN Creatinine Creat Clearance w eGFR Random Glucose Calcium Total Bilirubin AST ALT Alkaline Phosphatase Total Protein Albumin Random Vancomycin 11.8 L Hep A IgM Ab Confirm Negative Hepatitis A Ab Total Positive H Hep Bs Antigen Negative Hep Bs Antibody Reactive Hep B Core Total Ab Negative Hep C Ab Diagnostic 0.2 08/22/18 08/22/18 08/22/18 07:50 07:50 07:50 WBC 10.0 RBC 3.36 L Hgb 10.7 Hct 31.9 L MCV 94.8 MCH 31.7 MCHC 33.5 RDW 15.5 Plt Count 222 MPV 8.6 PT with INR 31.10 H INR 2.61 H Sodium 138 Potassium 4.6 Chloride 99 Carbon Dioxide 30 Anion Gap 9 BUN 48 H Creatinine 7.1 H Creat Clearance w eGFR 5.63 Random Glucose 153 H Calcium 9.0 Total Bilirubin 0.4 AST 9 L ALT 12 L Alkaline Phosphatase 65 Total Protein 6.7 Albumin 2.8 L Random Vancomycin Hep A IgM Ab Confirm Hepatitis A Ab Total Hep Bs Antigen Hep Bs Antibody Hep B Core Total Ab Hep C Ab Diagnostic plan: bgm qid novolog insulin doses levemir 15 units am ck hba1c
[2018-08-23] MEDS: INSULIN SLIDING SCALE (NOVOLOG) 1 VIAL SQ SCH ×4 (06:14→23:29)
[2018-08-23] MEDS: INSULIN (LEVEMIR) 100 UNITS/ML UNITS SQ SCH (06:16)
[2018-08-23] MEDS: SEVELAMER CARBONATE 800 MG TAB (FP) PO SCH ×3 (08:00→19:04)
[2018-08-23 09:00] LABS: INR 1.89 (0.83-1.09); PROTHROMBIN TIME (PATIENT) 22.4 SEC (9.7-13.0)
--- NOTE | 2018-08-23 09:13 | PN ---
Progress Note (short form) - Note Progress Note: fuv right foot +demarcation of gangarene, +cellulitis right foot, gangarene vascular procedure today. will decide plan after that.
[2018-08-23] MEDS ORDERED: PT OWN MED DRAWER 7, Y5N ONE ×5 (10:07→23:06)
[2018-08-23] MEDS: metoPROLOL SUCCINATE 25 MG TAB.SR.24H (FP) PO SCH (10:08)
[2018-08-23] MEDS: MIDODRINE HCL 5 MG TABLET PO SCH ×3 (10:12→19:03)
[2018-08-23] MEDS: SERTRALINE HCL 25 MG TABLET (FP) PO SCH (10:13)
[2018-08-23] MEDS: TIGECYCLINE 50 MG in DEXTROSE 5%-WATER - 100 ML IVPB SCH ×2 (10:13→23:28)
[2018-08-23] MEDS: VITAMIN B COMP W-C 1 EA TABLET PO SCH (10:13)
--- NOTE | 2018-08-23 12:33 | PN ---
Progress Note, Physician Chief Complaint: ESRD B/L pedal gangrene History of Present Illness: Previous notes and events reviewed awake and alert NAD denies complaints of chest pain and SOB pending CT angio of aorta and B/L lower extremity - Current Medication List Current Medications: Active Medications Sodium Chloride (Normal Saline -) 250 mls @ 3,000 mls/hr IV PRN PRN PRN Reason: Hypotension during Dialysis Stop: 08/23/18 13:10 Tigecycline 50 mg/ Dextrose 100 mls @ 100 mls/hr IVPB BID [facility]; Protocol Last Admin: 08/23/18 10:13 Dose: 100 mls/hr Insulin Aspart (Novolog Vial Sliding Scale -) 1 vial SQ ACHS [facility]; Protocol Last Admin: 08/23/18 11:18 Dose: Not Given Insulin Detemir (Levemir Vial) 15 units SQ AM [facility] Last Admin: 08/23/18 06:16 Dose: 15 units Metoprolol Succinate (Toprol Xl -) 25 mg PO DAILY [facility] Last Admin: 08/23/18 10:08 Dose: Not Given Midodrine (Proamatine -) 5 mg PO TID-MID [facility] Last Admin: 08/23/18 10:12 Dose: 5 mg Multivit/Ca Carb/B Cmplx/FA/Prenat (Nephro-Mahi -) 1 tablet PO DAILY [facility] Last Admin: 08/23/18 10:13 Dose: 1 tablet Sertraline HCl (Zoloft -) 25 mg PO DAILY [facility] Last Admin: 08/23/18 10:13 Dose: 25 mg Sevelamer Carbonate (Renvela -) 2,400 mg PO CM [facility] Last Admin: 08/23/18 08:00 Dose: Not Given Warfarin Sodium (Coumadin -) 10 mg PO DAILY@1800 [facility] Last Admin: 08/22/18 17:21 Dose: 10 mg - Objective Vital Signs: Vital Signs Temperature 99.2 F 08/23/18 05:25 Pulse Rate 82 08/23/18 05:25 Respiratory Rate 20 08/23/18 05:25 Blood Pressure 105/50 L 08/23/18 05:25 O2 Sat by Pulse Oximetry (%) 98 08/21/18 04:34 Constitutional: Yes: No Distress, Calm Eyes: Yes: Conjunctiva Clear HENT: Yes: Atraumatic Cardiovascular: Yes: Regular Rate and Rhythm Respiratory: Yes: Regular, CTA Bilaterally Gastrointestinal: Yes: Normal Bowel Sounds, Soft Musculoskeletal: Yes: Muscle Weakness Extremities: Yes: Other (RUE fistula) Edema: No Integumentary: Yes: Other (gangrene to R foot multple toes) Wound/Incision: Yes: Open to air Neurological: Yes: Alert, Pre-Existing Deficit Psychiatric: Yes: Alert Labs: CBC, BMP 08/22/18 07:50 08/22/18 07:50 INR, PTT INR 1.89 (0.83-1.09) H 08/23/18 07:16 Microbiology 08/20/18 21:45 Blood - Peripheral Venous Blood Culture - Preliminary NO GROWTH OBTAINED AFTER 48 HOURS, INCUBATION TO CONTINUE FOR 3 DAYS. 08/20/18 21:30 Blood - Peripheral Venous Blood Culture - Preliminary NO GROWTH OBTAINED AFTER 48 HOURS, INCUBATION TO CONTINUE FOR 3 DAYS. Problem List - Problems (1) Gangrene Assessment/Plan: -vascular on board -podiatry on board--possible debridement of bone and tissue TMA all right foot -cardiology clearance for angioplasty--consult placed -pending CT angio of aorta and B/L lower extremity -continue with tygacil -B/L foot xray reviewed--recommend for more complete evaluation MRI or bone scan to r/o osteo -wbc 10.0 Code(s): I96 - GANGRENE, NOT ELSEWHERE CLASSIFIED (2) Atrial fibrillation Assessment/Plan: -continue coumadin 10mg -daily INR goal between 2-3 -cardio consult for clearance -metoprolol daily for rate control Code(s): I48.91 - UNSPECIFIED ATRIAL FIBRILLATION Qualifiers: Atrial fibrillation type: chronic Qualified Code(s): I48.2 - Chronic atrial fibrillation (3) ESRD (end stage renal disease) on dialysis Assessment/Plan: -renal on board -continue dialysis MWF -renal diet -monitor BUN/Cr daily -BUN/Cr 48/7.1 -sevelamer Code(s): N18.6 - END STAGE RENAL DISEASE; Z99.2 - DEPENDENCE ON RENAL DIALYSIS (4) Hypotension Assessment/Plan: -cont midrodine TID Code(s): I95.9 - HYPOTENSION, UNSPECIFIED Assessment/Plan see problem list dvt ppx
--- NOTE | 2018-08-23 12:54 | PN ---
Progress Note (short form) - Note Progress Note: Renal follow up for ESRD on HD Pt seen and examined at the bedside no complaints awaiting CT scan no sob, cp, abd pain, N/V/D Vital Signs Temperature 99.2 F 08/23/18 05:25 Pulse Rate 82 08/23/18 05:25 Respiratory Rate 20 08/23/18 05:25 Blood Pressure 105/50 L 08/23/18 05:25 O2 Sat by Pulse Oximetry (%) 98 08/21/18 04:34 Intake & Output 08/20/18 08/21/18 08/22/18 08/23/18 23:59 23:59 23:59 23:59 Intake Total 835 900 0 Output Total 0 Balance 835 900 0 Weight 111.7 kg 113.001 kg 112.973 kg 113.398 kg NAD awake and alert irregular, no M/R CTA soft, obese, NT/ND CBC, BMP 08/22/18 07:50 08/22/18 07:50 Current Medications Sodium Chloride (Normal Saline -) 250 mls @ 3,000 mls/hr IV PRN PRN PRN Reason: Hypotension during Dialysis Stop: 08/23/18 13:10 Tigecycline 50 mg/ Dextrose 100 mls @ 100 mls/hr IVPB BID [facility]; Protocol Last Admin: 08/23/18 10:13 Dose: 100 mls/hr Insulin Aspart (Novolog Vial Sliding Scale -) 1 vial SQ ACHS [facility]; Protocol Last Admin: 08/23/18 11:18 Dose: Not Given Insulin Detemir (Levemir Vial) 15 units SQ AM [facility] Last Admin: 08/23/18 06:16 Dose: 15 units Metoprolol Succinate (Toprol Xl -) 25 mg PO DAILY [facility] Last Admin: 08/23/18 10:08 Dose: Not Given Midodrine (Proamatine -) 5 mg PO TID-MID [facility] Last Admin: 08/23/18 10:12 Dose: 5 mg Multivit/Ca Carb/B Cmplx/FA/Prenat (Nephro-Mahi -) 1 tablet PO DAILY [facility] Last Admin: 08/23/18 10:13 Dose: 1 tablet Sertraline HCl (Zoloft -) 25 mg PO DAILY [facility] Last Admin: 08/23/18 10:13 Dose: 25 mg Sevelamer Carbonate (Renvela -) 2,400 mg PO CM [facility] Last Admin: 08/23/18 08:00 Dose: Not Given Warfarin Sodium (Coumadin -) 10 mg PO DAILY@1800 [facility] Last Admin: 08/22/18 17:21 Dose: 10 mg 77 year old woman with hx of ESRD on HD, DM, Afib on Coumadin, CHF, Hypertension, HLD who presented with 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 #Gangrene of Foot r/o vascular insufficiency #ESRD on HD #DM #CKD related Anemia #Chronic Hypotension #Afib on Coumadin for CTA today and then dialysis continue work up as per vascular for TMA on Sunday +/- angiography as needed Thank you Alon Page DO
--- NOTE | 2018-08-23 14:51 | PN ---
Progress Note (short form) - Note Progress Note: still no iv access, awaiting imaging no complaints Vital Signs Period Temp Pulse Resp BP Sys/Prince Pulse Ox Last 24 Hr 99.2 F-99.8 F 82-85 20-20 100-108/48-58 cor-rrr lungs decreased bs at bases abd soft,nt ext left foot unchanged, some drainage from tip of right first toe CBC, BMP 08/22/18 07:50 08/22/18 07:50 Microbiology 08/20/18 21:45 Blood - Peripheral Venous Blood Culture - Preliminary NO GROWTH OBTAINED AFTER 48 HOURS, INCUBATION TO CONTINUE FOR 3 DAYS. 08/20/18 21:30 Blood - Peripheral Venous Blood Culture - Preliminary NO GROWTH OBTAINED AFTER 48 HOURS, INCUBATION TO CONTINUE FOR 3 DAYS. a/p multiple toes with dry gangrene with surrounding cellulitis no fever penicillin allergy- mouth swells esrd for 15 years DM 2003 vascular surgery evaluation in progress penicillin allergy continue tygacil for imaging today Problem List - Problems (1) Gangrene Code(s): I96 - GANGRENE, NOT ELSEWHERE CLASSIFIED (2) Cellulitis Code(s): L03.90 - CELLULITIS, UNSPECIFIED (3) ESRD (end stage renal disease) on dialysis Code(s): N18.6 - END STAGE RENAL DISEASE; Z99.2 - DEPENDENCE ON RENAL DIALYSIS (4) Diabetes Code(s): E11.9 - TYPE 2 DIABETES MELLITUS WITHOUT COMPLICATIONS (5) Diabetes mellitus, insulin dependent (IDDM), uncontrolled Code(s): E10.65 - TYPE 1 DIABETES MELLITUS WITH HYPERGLYCEMIA (6) Penicillin allergy Code(s): Z88.0 - ALLERGY STATUS TO PENICILLIN
--- NOTE | 2018-08-23 15:36 | PROC ---
Procedure Note Procedure: Called by patient's RN as they are unable to place 20ga peripheral IV after multiple attempts. Need access for for CTA w/ LE runoff. Left neck/EJ identified. Area cleansed with alcohol. 20ga angicath inserted. Aspirates and flushes easily. Secured and covered with tegaderm. Tolerated well. Ok to use line for procedure.
--- NOTE | 2018-08-23 16:30 | PN ---
Progress Note, Physician History of Present Illness: seen and examined today in nad. no new complaints. - Current Medication List Current Medications: Active Medications Sodium Chloride (Normal Saline -) 250 mls @ 3,000 mls/hr IV PRN PRN PRN Reason: Hypotension during Dialysis Stop: 08/23/18 13:10 Tigecycline 50 mg/ Dextrose 100 mls @ 100 mls/hr IVPB BID [facility]; Protocol Last Admin: 08/23/18 10:13 Dose: 100 mls/hr Insulin Aspart (Novolog Vial Sliding Scale -) 1 vial SQ ACHS [facility]; Protocol Last Admin: 08/23/18 11:18 Dose: Not Given Insulin Detemir (Levemir Vial) 15 units SQ AM [facility] Last Admin: 08/23/18 06:16 Dose: 15 units Metoprolol Succinate (Toprol Xl -) 25 mg PO DAILY [facility] Last Admin: 08/23/18 10:08 Dose: Not Given Midodrine (Proamatine -) 5 mg PO TID-MID [facility] Last Admin: 08/23/18 15:00 Dose: 5 mg Multivit/Ca Carb/B Cmplx/FA/Prenat (Nephro-Mahi -) 1 tablet PO DAILY [facility] Last Admin: 08/23/18 10:13 Dose: 1 tablet Sertraline HCl (Zoloft -) 25 mg PO DAILY [facility] Last Admin: 08/23/18 10:13 Dose: 25 mg Sevelamer Carbonate (Renvela -) 2,400 mg PO CM [facility] Last Admin: 08/23/18 12:00 Dose: Not Given Warfarin Sodium (Coumadin -) 10 mg PO DAILY@1800 [facility] Last Admin: 08/22/18 17:21 Dose: 10 mg - Objective Vital Signs: Vital Signs Temperature 99.4 F 08/23/18 13:46 Pulse Rate 85 08/23/18 13:46 Respiratory Rate 20 08/23/18 05:25 Blood Pressure 108/58 L 08/23/18 13:46 O2 Sat by Pulse Oximetry (%) 98 08/21/18 04:34 Constitutional: Yes: No Distress, Calm Eyes: Yes: Conjunctiva Clear, EOM Intact, PERRL HENT: Yes: Atraumatic, Normocephalic Neck: Yes: Supple, Trachea Midline Cardiovascular: Yes: Regular Rate and Rhythm, S1, S2. No: Bradycardia, Tachycardia, Pulse Irregular, Bruit, JVD, Gallop, Murmur, Rub, S3, S4, Varicosities Respiratory: Yes: Regular. No: Rales, Rhonchi, Wheezes Gastrointestinal: Yes: Normal Bowel Sounds, Soft Edema: LLE: Trace, RLE: Trace Neurological: Yes: Alert, Oriented Psychiatric: Yes: Alert, Oriented Labs: CBC, BMP 08/22/18 07:50 08/22/18 07:50 INR, PTT INR 1.89 (0.83-1.09) H 08/23/18 07:16 - ....Imaging Chest X-ray: Report Reviewed, Image Reviewed EKG: Report Reviewed, Image Reviewed Other: Report Reviewed, Image Reviewed Assessment/Plan 77 year old woman with pmh chronic systolic chf with moderate LV systolic dysfunction, afib, CVA, HLD, COPD, ESRD on HD, hypotension after HD, DMII, anemia, PAD admitted for b/l LE gangrene and ischemia for planned vascular and podiatry procedures. pt seen and examined with her at bedside. pt denies any history of chest pain either at rest or with exertion. she has chronic tian and her ET with her walker is limited to less than a block. denies any recent change in her chronic tian. Nuclear stress 12/10/13 moderate sized lateral ischemia, EF 36%. Echo 12/07/13 moderately reduced LV function. Cardiac cath 2008 [facility]-reported non-obs CAD Preop cardiac evaluation for LE angiogram and possible surgical intervention for PAD and gangrene -pt has known chronic heart disease with moderate LV systolic dysfunction on prior echo, non-obs CAD on cardiac cath 2008, chronic Afib and multiple other cardiac risk factors -she has chronic tian which is unchanged recently and reports no history of recent chest pain -there is no current cardiac contraindications to the planned procedures -she is of significant cardiac risk however with no active cardiac issues and further cardiac testing at this time would be unlikely to change her perioperative risk -therefore would recommend to proceed without delay for additional cardiac work up -she is currently on warfarin with a therapeutic range INR. If warfarin needs to be held for her procedures (at the discretion of the surgeon) it may be held , would recommend to bridge with IV heparin through her procedures given her h/ o chronic afib and CVA -would cont metoprolol as long as her BP tolerates -no change preop cardiac condition since yesterday -no further cardiac work up needed preoperatively Please call with any additional questions.
--- NOTE | 2018-08-23 16:58 | PROC ---
Central Line Insertion - Procedure Note TIME OUT performed prior to this procedure with verbal confirmation of correct patient identity, correct side, agreement of the procedure, correct patient position, availability of necessary equipment. The consent form is complete and accurate. Risk of possible infection, bleeding and pneumothorax have been discussed with the patient. Safety precautions based on patient history or medication use has been addressed. Indication: Poor Venous Access (contrast dry for CTA) Consent on Chart: Yes Central Line: Triple Lumen Catheter Position: Trendelenburg Area prepped with Chlorhexidine solution then draped using sterile barrier protection. Anesthesia: Lidocaine 1% Technique used: Seldinger Ultrasound Guided Assistance: Yes Site: Right Internal Jugular Dark venous non-pulsatile flow noted from hub of needle. The catheter was introduced. Guide wire removed intact. Each port aspirated then flushed with sterile normal saline and capped. Line secured to skin with silk suture. Biopatch placed around base of line. Sterile occlusive dressing applied. No complications. Patient tolerated the procedure well. STAT chest xray ordered to confirm position and rule out pneumothorax Senior ZABRINA Goodman was present and assisted for the entire procedure.
[2018-08-23] MEDS: WARFARIN NA 5 MG TABLET (UD) PO SCH (19:02)
[2018-08-23 20:15] LABS: HEMATOCRIT 31.2 % (32.4-45.2); HEMOGLOBIN 10.6 GM/dL (10.7-15.3); MCH 31.9 pg (25.7-33.7); MCHC 33.9 g/dl (32.0-36.0); MEAN CELL VOLUME 93.9 fl (80-96); MEAN PLT VOLUME 8.8 fl (7.5-11.1); PLATELET COUNT 228 K/MM3 (134-434); RBC 3.32 M/mm3 (3.60-5.2); WHITE BLOOD COUNT 11.6 K/mm3 (4.0-10.0)
[2018-08-23 20:42] LABS: ANION GAP 15 MMOL/L (8-16); BLOOD UREA NITROGEN 89 mg/dL (7-18); CALCIUM 8.8 mg/dL (8.5-10.1); CHLORIDE 95 mmol/L (98-107); CO2 23 mmol/L (21-32); GLUCOSE,RANDOM 193 mg/dL (74-106); PHOSPHOROUS 3.1 mg/dL (2.5-4.9); POTASSIUM 4.3 mmol/L (3.5-5.1); SODIUM 132 mmol/L (136-145)
[2018-08-23 20:46] LABS: CREATININE 9.6 mg/dL (0.55-1.3)
[2018-08-24] MEDS: INSULIN (LEVEMIR) 100 UNITS/ML UNITS SQ SCH (06:05)
[2018-08-24] MEDS: INSULIN SLIDING SCALE (NOVOLOG) 1 VIAL SQ SCH ×4 (06:05→22:18)
[2018-08-24 07:22] LABS: HEMATOCRIT 30.1 % (32.4-45.2); HEMOGLOBIN 10.4 GM/dL (10.7-15.3); MCH 32.4 pg (25.7-33.7); MCHC 34.5 g/dl (32.0-36.0); MEAN CELL VOLUME 94.1 fl (80-96); MEAN PLT VOLUME 8.6 fl (7.5-11.1); PLATELET COUNT 235 K/MM3 (134-434); WHITE BLOOD COUNT 10.9 K/mm3 (4.0-10.0)
[2018-08-24 07:47] LABS: INR 2.39 (0.83-1.09); PROTHROMBIN TIME (PATIENT) 28.5 SEC (9.7-13.0)
[2018-08-24 07:51] LABS: ALBUMIN 2.5 g/dl (3.4-5.0); ALK PHOS 69 U/L (45-117); ANION GAP 10 MMOL/L (8-16); BILIRUBIN,TOTAL 0.4 mg/dL (0.2-1); BLOOD UREA NITROGEN 63 mg/dL (7-18); CALCIUM 8.6 mg/dL (8.5-10.1); CHLORIDE 99 mmol/L (98-107); CO2 28 mmol/L (21-32); GLUCOSE,RANDOM 87 mg/dL (74-106); POTASSIUM 4.2 mmol/L (3.5-5.1); SGOT/AST 11 U/L (15-37); SGPT/ALT 11 U/L (13-61); SODIUM 138 mmol/L (136-145); TOT PROT 6.1 g/dl (6.4-8.2)
[2018-08-24 07:57] LABS: CREATININE 7.4 mg/dL (0.55-1.3)
[2018-08-24] MEDS: SEVELAMER CARBONATE 800 MG TAB (FP) PO SCH ×3 (08:05→17:05)
[2018-08-24] MEDS ORDERED: SODIUM CHLORIDE 250 ML IV PRN (09:32)
--- NOTE | 2018-08-24 09:50 | PN ---
Progress Note (short form) - Note Progress Note: fuv right foot. Patient had procedure yesterday. Patient sitting up comfortably in chair. vss, tmax 98.3 +demarcation of gangarene, +cellulitis right foot, +5th toe completely dry gangarene gangarene PVD Will watch demarcation of foot. Once vascular clearance for debridement will take to OR. Dry dressing change to right foot.
[2018-08-24] MEDS: SERTRALINE HCL 25 MG TABLET (FP) PO SCH (10:25)
[2018-08-24] MEDS: VITAMIN B COMP W-C 1 EA TABLET PO SCH (10:25)
[2018-08-24] MEDS: TIGECYCLINE 50 MG in DEXTROSE 5%-WATER - 100 ML IVPB SCH ×2 (10:26→22:00)
[2018-08-24] MEDS: MIDODRINE HCL 5 MG TABLET PO SCH ×3 (10:37→17:05)
[2018-08-24] MEDS: metoPROLOL SUCCINATE 25 MG TAB.SR.24H (FP) PO SCH (10:57)
[2018-08-24] MEDS ORDERED: INSULIN (NOVOLOG) ASPART 100 UNITS/ML 10ML VIAL ONE (11:28)
--- NOTE | 2018-08-24 11:47 | PN ---
Progress Note (short form) - Note Progress Note: Renal follow up for ESRD on HD Pt seen and examined at the bedside no acute complaints had 2.5 hrs of dialysis yesterday, pt requested to terminate tx early no sob, cp, abd pain, N/V/D s/p CTA yesterday required central line placement for IV access Vital Signs Temperature 97.7 F 08/24/18 10:00 Pulse Rate 92 H 08/24/18 10:00 Respiratory Rate 18 08/24/18 10:00 Blood Pressure 110/48 L 08/24/18 10:00 O2 Sat by Pulse Oximetry (%) 98 08/21/18 04:34 Intake & Output 08/21/18 08/22/18 08/23/18 08/24/18 23:59 23:59 23:59 23:59 Intake Total 835 900 550 100 Output Total 0 0 Balance 835 900 550 100 Weight 113.001 kg 112.973 kg 113.398 kg 112.094 kg NAD awake and alert irregular, no M/R CTA soft, obese, NT/ND CBC, BMP 08/22/18 07:50 08/22/18 07:50 Current Medications Sodium Chloride (Normal Saline -) 250 mls @ 3,000 mls/hr IV PRN PRN PRN Reason: Hypotension during Dialysis Stop: 08/23/18 13:10 Tigecycline 50 mg/ Dextrose 100 mls @ 100 mls/hr IVPB BID [facility]; Protocol Last Admin: 08/23/18 10:13 Dose: 100 mls/hr Insulin Aspart (Novolog Vial Sliding Scale -) 1 vial SQ ACHS [facility]; Protocol Last Admin: 08/23/18 11:18 Dose: Not Given Insulin Detemir (Levemir Vial) 15 units SQ AM [facility] Last Admin: 08/23/18 06:16 Dose: 15 units Metoprolol Succinate (Toprol Xl -) 25 mg PO DAILY [facility] Last Admin: 08/23/18 10:08 Dose: Not Given Midodrine (Proamatine -) 5 mg PO TID-MID [facility] Last Admin: 08/23/18 10:12 Dose: 5 mg Multivit/Ca Carb/B Cmplx/FA/Prenat (Nephro-Mahi -) 1 tablet PO DAILY [facility] Last Admin: 08/23/18 10:13 Dose: 1 tablet Sertraline HCl (Zoloft -) 25 mg PO DAILY [facility] Last Admin: 08/23/18 10:13 Dose: 25 mg Sevelamer Carbonate (Renvela -) 2,400 mg PO CM [facility] Last Admin: 08/23/18 08:00 Dose: Not Given Warfarin Sodium (Coumadin -) 10 mg PO DAILY@1800 [facility] Last Admin: 08/22/18 17:21 Dose: 10 mg 77 year old woman with hx of ESRD on HD, DM, Afib on Coumadin, CHF, Hypertension, HLD who presented with 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 #Gangrene of Foot r/o vascular insufficiency #ESRD on HD #DM #CKD related Anemia #Chronic Hypotension #Afib on Coumadin for additional dialysis today with 1L UF CTA results pending Vascular and podiatry follow up Renal diet, 1.2L fluid restriction Thank you Alon Page DO
--- NOTE | 2018-08-24 12:28 | PN ---
Progress Note, Physician Chief Complaint: ESRD B/L pedal gangrene History of Present Illness: Previous notes and events reviewed awake and alert NAD denies complaints of chest pain and SOB CT angio of aorta and B/L lower extremity performed yesterday - Current Medication List Current Medications: Active Medications Tigecycline 50 mg/ Dextrose 100 mls @ 100 mls/hr IVPB BID REPLACED BY [facility]; Protocol Last Admin: 08/24/18 10:26 Dose: 100 mls/hr Sodium Chloride (Normal Saline -) 250 mls @ 3,000 mls/hr IV PRN PRN PRN Reason: Hypotension during Dialysis Stop: 08/25/18 09:32 Insulin Aspart (Novolog Vial Sliding Scale -) 1 vial SQ ACHS REPLACED BY [facility]; Protocol Last Admin: 08/24/18 11:32 Dose: 3 unit Insulin Detemir (Levemir Vial) 15 units SQ AM REPLACED BY [facility] Last Admin: 08/24/18 06:05 Dose: Not Given Metoprolol Succinate (Toprol Xl -) 25 mg PO DAILY REPLACED BY [facility] Last Admin: 08/24/18 10:57 Dose: Not Given Midodrine (Proamatine -) 5 mg PO TID-MID REPLACED BY [facility] Last Admin: 08/24/18 10:37 Dose: 5 mg Multivit/Ca Carb/B Cmplx/FA/Prenat (Nephro-Mahi -) 1 tablet PO DAILY REPLACED BY [facility] Last Admin: 08/24/18 10:25 Dose: 1 tablet Sertraline HCl (Zoloft -) 25 mg PO DAILY REPLACED BY [facility] Last Admin: 08/24/18 10:25 Dose: 25 mg Sevelamer Carbonate (Renvela -) 2,400 mg PO CM REPLACED BY [facility] Last Admin: 08/24/18 11:18 Dose: 2,400 mg Warfarin Sodium (Coumadin -) 10 mg PO DAILY@1800 REPLACED BY [facility] Last Admin: 08/23/18 19:02 Dose: 10 mg - Objective Vital Signs: Vital Signs Temperature 97.7 F 08/24/18 10:00 Pulse Rate 92 H 08/24/18 10:00 Respiratory Rate 18 08/24/18 10:00 Blood Pressure 110/48 L 08/24/18 10:00 O2 Sat by Pulse Oximetry (%) 98 08/21/18 04:34 Constitutional: Yes: No Distress, Calm Eyes: Yes: Conjunctiva Clear HENT: Yes: Atraumatic Neck: Yes: Other (TLC noted R subclavian) Cardiovascular: Yes: Regular Rate and Rhythm Respiratory: Yes: Regular, CTA Bilaterally Gastrointestinal: Yes: Normal Bowel Sounds, Soft Genitourinary: Yes: Incontinence Musculoskeletal: Yes: Muscle Weakness Extremities: Yes: Other (RUE fistula) Integumentary: Yes: Other (gangrene R foot 1st, 3rd, 5th digit) Neurological: Yes: Alert Psychiatric: Yes: Alert Labs: CBC, BMP 08/24/18 06:00 08/24/18 06:00 INR, PTT INR 2.39 (0.83-1.09) H 08/24/18 06:00 Microbiology 08/20/18 21:45 Blood - Peripheral Venous Blood Culture - Preliminary NO GROWTH OBTAINED AFTER 72 HOURS, INCUBATION TO CONTINUE FOR 2 DAYS. 08/20/18 21:30 Blood - Peripheral Venous Blood Culture - Preliminary NO GROWTH OBTAINED AFTER 72 HOURS, INCUBATION TO CONTINUE FOR 2 DAYS. Problem List - Problems (1) Gangrene Assessment/Plan: -vascular on board -podiatry on board--possible debridement of bone and tissue TMA all right foot -cleared by cardiology for angioplasty -CT angio of aorta and B/L lower extremity performed results pending -continue with tygacil -B/L foot xray reviewed--recommend for more complete evaluation MRI or bone scan to r/o osteo -wbc 10.0 Code(s): I96 - GANGRENE, NOT ELSEWHERE CLASSIFIED (2) Atrial fibrillation Assessment/Plan: -continue coumadin 10mg -daily INR goal between 2-3 -cardio consult for clearance -metoprolol daily for rate control -will bridge with heparin drip at surgeon discretion for possible TMA Code(s): I48.91 - UNSPECIFIED ATRIAL FIBRILLATION Qualifiers: Atrial fibrillation type: chronic Qualified Code(s): I48.2 - Chronic atrial fibrillation (3) ESRD (end stage renal disease) on dialysis Assessment/Plan: -renal on board -continue dialysis MWF -renal diet -monitor BUN/Cr daily -BUN/Cr 63/7.4 -sevelamer Code(s): N18.6 - END STAGE RENAL DISEASE; Z99.2 - DEPENDENCE ON RENAL DIALYSIS (4) Hypotension Assessment/Plan: -cont midrodine TID Code(s): I95.9 - HYPOTENSION, UNSPECIFIED Assessment/Plan see problem list dvt ppx
[2018-08-24] MEDS ORDERED: PT OWN MED DRAWER 7, Y5N ONE ×2 (17:03→21:59)
[2018-08-24] MEDS: WARFARIN NA 5 MG TABLET (UD) PO SCH (17:05)
--- NOTE | 2018-08-24 19:22 | PN ---
Progress Note, Physician Chief Complaint: sitting bedside,no complaint aware of serious nature of illness History of Present Illness: dm2,cad,afib,esrd,diabetic vascular disease,pad,gangrenous toe infection bilateralal - Current Medication List Current Medications: Active Medications Tigecycline 50 mg/ Dextrose 100 mls @ 100 mls/hr IVPB BID ON LICENSE OF [facility]; Protocol Last Admin: 08/24/18 10:26 Dose: 100 mls/hr Sodium Chloride (Normal Saline -) 250 mls @ 3,000 mls/hr IV PRN PRN PRN Reason: Hypotension during Dialysis Stop: 08/25/18 09:32 Insulin Aspart (Novolog Vial Sliding Scale -) 1 vial SQ ACHS ON LICENSE OF [facility]; Protocol Last Admin: 08/24/18 17:05 Dose: 3 unit Insulin Detemir (Levemir Vial) 15 units SQ AM ON LICENSE OF [facility] Last Admin: 08/24/18 06:05 Dose: Not Given Metoprolol Succinate (Toprol Xl -) 25 mg PO DAILY ON LICENSE OF [facility] Last Admin: 08/24/18 10:57 Dose: Not Given Midodrine (Proamatine -) 5 mg PO TID-MID ON LICENSE OF [facility] Last Admin: 08/24/18 17:05 Dose: 5 mg Multivit/Ca Carb/B Cmplx/FA/Prenat (Nephro-Mahi -) 1 tablet PO DAILY ON [facility] OF [facility] Last Admin: 08/24/18 10:25 Dose: 1 tablet Sertraline HCl (Zoloft -) 25 mg PO DAILY ON LICENSE OF [facility] Last Admin: 08/24/18 10:25 Dose: 25 mg Sevelamer Carbonate (Renvela -) 2,400 mg PO CM ON LICENSE OF [facility] Last Admin: 08/24/18 17:05 Dose: 2,400 mg Warfarin Sodium (Coumadin -) 10 mg PO DAILY@1800 ON LICENSE OF [facility] Last Admin: 08/24/18 17:05 Dose: 10 mg - Objective Vital Signs: Vital Signs Temperature 98.4 F 08/24/18 18:10 Pulse Rate 86 08/24/18 18:10 Respiratory Rate 20 08/24/18 18:10 Blood Pressure 108/54 L 08/24/18 18:10 O2 Sat by Pulse Oximetry (%) 98 08/21/18 04:34 Constitutional: Yes: Calm Eyes: Yes: EOM Intact HENT: Yes: Normocephalic Neck: Yes: Trachea Midline Cardiovascular: Yes: Regular Rate and Rhythm Respiratory: Yes: CTA Bilaterally Gastrointestinal: Yes: Normal Bowel Sounds ...Rectal Exam: Yes: Deferred Genitourinary: Yes: Other Musculoskeletal: Yes: Joint Swelling, Muscle Pain, Muscle Weakness Extremities: Yes: Delayed Capillary Refill Edema: No Peripheral Pulses: Left Radial: 1+, Right Radial: 1+, Left Femoral: 1+, Right Femoral: 1+ Wound/Incision: Yes: Dressing Removed Neurological: Yes: Alert, Oriented Labs: CBC, BMP 08/24/18 06:00 08/24/18 06:00 INR, PTT INR 2.39 (0.83-1.09) H 08/24/18 06:00 Problem List - Problems (1) Diabetes 1.5, managed as type 2 Code(s): E13.9 - OTHER SPECIFIED DIABETES MELLITUS WITHOUT COMPLICATIONS (2) Cellulitis Code(s): L03.90 - CELLULITIS, UNSPECIFIED (3) Gangrene Code(s): I96 - GANGRENE, NOT ELSEWHERE CLASSIFIED (4) Penicillin allergy Code(s): Z88.0 - ALLERGY STATUS TO PENICILLIN (5) Acute electrocardiogram changes Code(s): R94.31 - ABNORMAL ELECTROCARDIOGRAM [ECG] [EKG] (6) Anemia Code(s): D64.9 - ANEMIA, UNSPECIFIED Qualifiers: Anemia type: other cause Other causes of anemia: chronic disease, kidney (7) Atrial fibrillation Code(s): I48.91 - UNSPECIFIED ATRIAL FIBRILLATION Qualifiers: Atrial fibrillation type: chronic Qualified Code(s): I48.2 - Chronic atrial fibrillation (8) Type 2 diabetes mellitus with diabetic peripheral angiopathy without gangrene Code(s): E11.51 - TYPE 2 DIABETES W DIABETIC PERIPHERAL ANGIOPATH W/O GANGRENE Assessment/Plan Current Active Problems Cellulitis (Acute) Diabetes 1.5, managed as type 2 (Acute) Gangrene (Acute) Penicillin allergy (Acute) Type 2 diabetes mellitus with diabetic peripheral angiopathy without gangrene ( Acute) Abnormal Lab Results 08/23/18 08/23/18 08/24/18 19:30 19:30 06:00 WBC 11.6 H 10.9 H RBC 3.32 L 3.20 L Hgb 10.6 L 10.4 L Hct 31.2 L 30.1 L PT with INR INR Sodium 132 L Chloride 95 L BUN 89 H Creatinine 9.6 H* Random Glucose 193 H AST ALT Total Protein Albumin 08/24/18 08/24/18 06:00 06:00 WBC RBC Hgb Hct PT with INR 28.50 H INR 2.39 H Sodium Chloride BUN 63 H Creatinine 7.4 H* Random Glucose AST 11 L ALT 11 L Total Protein 6.1 L Albumin 2.5 L Laboratory Tests 08/07/15 11/16/16 11/17/16 07:50 21:23 06:03 POC Glucometer 92 56 Hemoglobin A1c % 6.9 H 11/17/16 11/17/16 11/17/16 12:00 17:36 21:20 POC Glucometer 202 294 245 follHemoglobin A1c % 08/23/18 08/24/18 08/24/18 23:27 06:03 11:24 POC Glucometer 153 74 188 Hemoglobin A1c % 08/24/18 16:54 POC Glucometer 157 Hemoglobin A1c % plan: bgm qid levemir 15 units am vascular surgic
[2018-08-25] MEDS: INSULIN SLIDING SCALE (NOVOLOG) 1 VIAL SQ SCH ×4 (06:22→21:40)
[2018-08-25] MEDS: INSULIN (LEVEMIR) 100 UNITS/ML UNITS SQ SCH (06:23)
[2018-08-25] MEDS: SEVELAMER CARBONATE 800 MG TAB (FP) PO SCH ×3 (08:25→17:13)
[2018-08-25 09:11] LABS: HEMATOCRIT 31.8 % (32.4-45.2); HEMOGLOBIN 10.8 GM/dL (10.7-15.3); MCH 32.3 pg (25.7-33.7); MEAN CELL VOLUME 94.9 fl (80-96); PLATELET COUNT 237 K/MM3 (134-434); RBC 3.35 M/mm3 (3.60-5.2); RDW 15.1 % (11.6-15.6); WHITE BLOOD COUNT 11.8 K/mm3 (4.0-10.0)
[2018-08-25 09:26] LABS: PROTHROMBIN TIME (PATIENT) 48.4 SEC (9.7-13.0)
[2018-08-25 09:28] LABS: INR 4.04 (0.83-1.09)
[2018-08-25] MEDS: metoPROLOL SUCCINATE 25 MG TAB.SR.24H (FP) PO SCH (09:34)
[2018-08-25] MEDS ORDERED: PT OWN MED DRAWER 7, Y5N ONE ×3 (09:37→17:11)
[2018-08-25 09:39] LABS: ALBUMIN 2.7 g/dl (3.4-5.0); ALK PHOS 81 U/L (45-117); ANION GAP 12 MMOL/L (8-16); BILIRUBIN,TOTAL 0.3 mg/dL (0.2-1); BLOOD UREA NITROGEN 60 mg/dL (7-18); CALCIUM 8.6 mg/dL (8.5-10.1); CHLORIDE 97 mmol/L (98-107); CO2 27 mmol/L (21-32); CREATININE 7.2 mg/dL (0.55-1.3); GLUCOSE,RANDOM 136 mg/dL (74-106); POTASSIUM 4.5 mmol/L (3.5-5.1); SGOT/AST 10 U/L (15-37); SGPT/ALT 11 U/L (13-61); SODIUM 136 mmol/L (136-145); TOT PROT 6.4 g/dl (6.4-8.2)
[2018-08-25] MEDS: TIGECYCLINE 50 MG in DEXTROSE 5%-WATER - 100 ML IVPB SCH ×2 (10:04→21:37)
[2018-08-25] MEDS: MIDODRINE HCL 5 MG TABLET PO SCH ×3 (10:04→18:04)
[2018-08-25] MEDS: SERTRALINE HCL 25 MG TABLET (FP) PO SCH (10:04)
[2018-08-25] MEDS: VITAMIN B COMP W-C 1 EA TABLET PO SCH (10:04)
--- NOTE | 2018-08-25 11:11 | PN ---
Progress Note, Physician Chief Complaint: ESRD B/L pedal gangrene History of Present Illness: Previous notes and events reviewed awake and alert NAD denies complaints of chest pain and SOB CT angio of aorta and B/L lower extremity performed yesterday - Current Medication List Current Medications: Active Medications Tigecycline 50 mg/ Dextrose 100 mls @ 100 mls/hr IVPB BID [facility]; Protocol Last Admin: 08/25/18 10:04 Dose: 100 mls/hr Sodium Chloride (Normal Saline -) 250 mls @ 3,000 mls/hr IV PRN PRN PRN Reason: Hypotension during Dialysis Stop: 08/25/18 09:32 Insulin Aspart (Novolog Vial Sliding Scale -) 1 vial SQ ACHS [facility]; Protocol Last Admin: 08/25/18 06:22 Dose: Not Given Insulin Detemir (Levemir Vial) 15 units SQ AM [facility] Last Admin: 08/25/18 06:23 Dose: 15 units Metoprolol Succinate (Toprol Xl -) 25 mg PO DAILY [facility] Last Admin: 08/25/18 09:34 Dose: Not Given Midodrine (Proamatine -) 5 mg PO TID-MID [facility] Last Admin: 08/25/18 10:04 Dose: 5 mg Multivit/Ca Carb/B Cmplx/FA/Prenat (Nephro-Mahi -) 1 tablet PO DAILY [facility] Last Admin: 08/25/18 10:04 Dose: 1 tablet Sertraline HCl (Zoloft -) 25 mg PO DAILY [facility] Last Admin: 08/25/18 10:04 Dose: 25 mg Sevelamer Carbonate (Renvela -) 2,400 mg PO CM [facility] Last Admin: 08/25/18 08:25 Dose: 2,400 mg Warfarin Sodium (Coumadin -) 10 mg PO DAILY@1800 [facility] Last Admin: 08/24/18 17:05 Dose: 10 mg - Objective Vital Signs: Vital Signs Temperature 97.8 F 08/25/18 09:00 Pulse Rate 94 H 08/25/18 09:00 Respiratory Rate 20 08/25/18 09:00 Blood Pressure 82/48 L 08/25/18 09:00 O2 Sat by Pulse Oximetry (%) 98 08/21/18 04:34 Constitutional: Yes: No Distress, Calm Eyes: Yes: Conjunctiva Clear HENT: Yes: Atraumatic Neck: Yes: Supple Cardiovascular: Yes: Regular Rate and Rhythm Respiratory: Yes: Regular, CTA Bilaterally Gastrointestinal: Yes: Normal Bowel Sounds, Soft Musculoskeletal: Yes: Muscle Weakness Edema: No Neurological: Yes: Alert, Oriented Psychiatric: Yes: Alert Labs: CBC, BMP 08/25/18 07:10 08/25/18 07:10 INR, PTT INR 4.04 (0.83-1.09) H* 08/25/18 07:10 Problem List - Problems (1) Gangrene Code(s): I96 - GANGRENE, NOT ELSEWHERE CLASSIFIED (2) Atrial fibrillation Code(s): I48.91 - UNSPECIFIED ATRIAL FIBRILLATION Qualifiers: Atrial fibrillation type: chronic Qualified Code(s): I48.2 - Chronic atrial fibrillation (3) ESRD (end stage renal disease) on dialysis Code(s): N18.6 - END STAGE RENAL DISEASE; Z99.2 - DEPENDENCE ON RENAL DIALYSIS (4) Hypotension Code(s): I95.9 - HYPOTENSION, UNSPECIFIED
--- NOTE | 2018-08-25 11:18 | PN ---
Progress Note, Physician Chief Complaint: ESRD B/L pedal gangrene History of Present Illness: Previous notes and events reviewed awake and alert NAD denies complaints of chest pain and SOB CT angio of aorta and B/L lower extremity performed yesterday - Current Medication List Current Medications: Active Medications Tigecycline 50 mg/ Dextrose 100 mls @ 100 mls/hr IVPB BID [facility]; Protocol Last Admin: 08/25/18 10:04 Dose: 100 mls/hr Sodium Chloride (Normal Saline -) 250 mls @ 3,000 mls/hr IV PRN PRN PRN Reason: Hypotension during Dialysis Stop: 08/25/18 09:32 Insulin Aspart (Novolog Vial Sliding Scale -) 1 vial SQ ACHS [facility]; Protocol Last Admin: 08/25/18 06:22 Dose: Not Given Insulin Detemir (Levemir Vial) 15 units SQ AM [facility] Last Admin: 08/25/18 06:23 Dose: 15 units Metoprolol Succinate (Toprol Xl -) 25 mg PO DAILY [facility] Last Admin: 08/25/18 09:34 Dose: Not Given Midodrine (Proamatine -) 5 mg PO TID-MID [facility] Last Admin: 08/25/18 10:04 Dose: 5 mg Multivit/Ca Carb/B Cmplx/FA/Prenat (Nephro-Mahi -) 1 tablet PO DAILY [facility] Last Admin: 08/25/18 10:04 Dose: 1 tablet Sertraline HCl (Zoloft -) 25 mg PO DAILY [facility] Last Admin: 08/25/18 10:04 Dose: 25 mg Sevelamer Carbonate (Renvela -) 2,400 mg PO CM [facility] Last Admin: 08/25/18 08:25 Dose: 2,400 mg Warfarin Sodium (Coumadin -) 10 mg PO DAILY@1800 [facility] Last Admin: 08/24/18 17:05 Dose: 10 mg - Objective Vital Signs: Vital Signs Temperature 97.8 F 08/25/18 09:00 Pulse Rate 94 H 08/25/18 09:00 Respiratory Rate 20 08/25/18 09:00 Blood Pressure 82/48 L 08/25/18 09:00 O2 Sat by Pulse Oximetry (%) 98 08/21/18 04:34 Constitutional: Yes: No Distress, Calm Eyes: Yes: Conjunctiva Clear HENT: Yes: Atraumatic Neck: Yes: Supple Cardiovascular: Yes: Regular Rate and Rhythm Respiratory: Yes: Regular, CTA Bilaterally Gastrointestinal: Yes: Normal Bowel Sounds, Soft Musculoskeletal: Yes: Muscle Weakness Extremities: Yes: WNL Integumentary: Yes: Other (multiple gangrene toes R foot) Neurological: Yes: Alert Psychiatric: Yes: Alert Labs: CBC, BMP 08/25/18 07:10 08/25/18 07:10 INR, PTT INR 4.04 (0.83-1.09) H* 08/25/18 07:10 Problem List - Problems (1) Gangrene Assessment/Plan: -vascular on board -podiatry on board--possible debridement of bone and tissue TMA all right foot -cleared by cardiology for angioplasty -CT angio of aorta and B/L lower extremity performed results pending -continue with tygacil -B/L foot xray reviewed--recommend for more complete evaluation MRI or bone scan to r/o osteo -wbc 11.8 Code(s): I96 - GANGRENE, NOT ELSEWHERE CLASSIFIED (2) Atrial fibrillation Assessment/Plan: -hold coumadin 10mg, INR 4.04 -daily INR goal between 2-3 -cardio consult for clearance -metoprolol daily for rate control -will bridge with heparin drip at surgeon discretion for possible TMA Code(s): I48.91 - UNSPECIFIED ATRIAL FIBRILLATION Qualifiers: Atrial fibrillation type: chronic Qualified Code(s): I48.2 - Chronic atrial fibrillation (3) ESRD (end stage renal disease) on dialysis Assessment/Plan: -renal on board -continue dialysis MWF -renal diet -monitor BUN/Cr daily -BUN/Cr 60/7.2 -sevelamer Code(s): N18.6 - END STAGE RENAL DISEASE; Z99.2 - DEPENDENCE ON RENAL DIALYSIS (4) Hypotension Assessment/Plan: -cont midrodine TID Code(s): I95.9 - HYPOTENSION, UNSPECIFIED Assessment/Plan see problem list dvt ppx
--- NOTE | 2018-08-25 12:03 | PN ---
Progress Note (short form) - Note Progress Note: Renal follow up for ESRD on HD Pt seen and examined at the bedside no acute complaints Vital Signs Temperature 97.8 F 08/25/18 09:00 Pulse Rate 94 H 08/25/18 09:00 Respiratory Rate 20 08/25/18 09:00 Blood Pressure 82/48 L 08/25/18 09:00 O2 Sat by Pulse Oximetry (%) 98 08/21/18 04:34 NAD awake and alert irregular, no M/R CTA soft, obese, NT/ND CBC, BMP 08/25/18 07:10 08/25/18 07:10 Current Medications Tigecycline 50 mg/ Dextrose 100 mls @ 100 mls/hr IVPB BID [facility]; Protocol Last Admin: 08/25/18 10:04 Dose: 100 mls/hr Sodium Chloride (Normal Saline -) 250 mls @ 3,000 mls/hr IV PRN PRN PRN Reason: Hypotension during Dialysis Stop: 08/25/18 09:32 Insulin Aspart (Novolog Vial Sliding Scale -) 1 vial SQ ACHS [facility]; Protocol Last Admin: 08/25/18 11:41 Dose: 3 unit Insulin Detemir (Levemir Vial) 15 units SQ AM [facility] Last Admin: 08/25/18 06:23 Dose: 15 units Metoprolol Succinate (Toprol Xl -) 25 mg PO DAILY [facility] Last Admin: 08/25/18 09:34 Dose: Not Given Midodrine (Proamatine -) 5 mg PO TID-MID [facility] Last Admin: 08/25/18 10:04 Dose: 5 mg Multivit/Ca Carb/B Cmplx/FA/Prenat (Nephro-Mahi -) 1 tablet PO DAILY [facility] Last Admin: 08/25/18 10:04 Dose: 1 tablet Sertraline HCl (Zoloft -) 25 mg PO DAILY [facility] Last Admin: 08/25/18 10:04 Dose: 25 mg Sevelamer Carbonate (Renvela -) 2,400 mg PO CM [facility] Last Admin: 08/25/18 11:42 Dose: 2,400 mg Warfarin Sodium (Coumadin -) 10 mg PO DAILY@1800 [facility] Last Admin: 08/24/18 17:05 Dose: 10 mg 77 year old woman with hx of ESRD on HD, DM, Afib on Coumadin, CHF, Hypertension, HLD who presented with 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 #Gangrene of Foot r/o vascular insufficiency #ESRD on HD #DM #CKD related Anemia #Chronic Hypotension #Afib on Coumadin s/p abridged HD yesterday, no need for [employer] today next dialysis tomorrow morning TMA as per podiatry f/u CTA results Thank you Alon Page DO
--- NOTE | 2018-08-25 17:28 | PN ---
Progress Note (short form) - Note Progress Note: Vascular Surgery CTA done on 08/23. Awaiting official results. Please clear from a medical/cardiology standpoint for angiogram. Will plan procedure therafter. Narciso Alarcon DO
[2018-08-26] MEDS: INSULIN (LEVEMIR) 100 UNITS/ML UNITS SQ SCH (06:14)
[2018-08-26] MEDS: INSULIN SLIDING SCALE (NOVOLOG) 1 VIAL SQ SCH ×4 (06:15→22:17)
[2018-08-26] MEDS ORDERED: SODIUM CHLORIDE 250 ML IV PRN ×2 (06:23→12:51)
[2018-08-26 07:14] LABS: HEMATOCRIT 31.4 % (32.4-45.2); HEMOGLOBIN 10.6 GM/dL (10.7-15.3); MCH 31.7 pg (25.7-33.7); MCHC 33.9 g/dl (32.0-36.0); MEAN CELL VOLUME 93.6 fl (80-96); MEAN PLT VOLUME 8.3 fl (7.5-11.1); PLATELET COUNT 254 K/MM3 (134-434); RBC 3.35 M/mm3 (3.60-5.2); RDW 14.7 % (11.6-15.6); WHITE BLOOD COUNT 12.4 K/mm3 (4.0-10.0)
[2018-08-26 07:34] LABS: ALBUMIN 2.6 g/dl (3.4-5.0); ALK PHOS 82 U/L (45-117); ANION GAP 11 MMOL/L (8-16); BILIRUBIN,TOTAL 0.4 mg/dL (0.2-1); BLOOD UREA NITROGEN 87 mg/dL (7-18); CALCIUM 8.6 mg/dL (8.5-10.1); CHLORIDE 96 mmol/L (98-107); CO2 27 mmol/L (21-32); GLUCOSE,RANDOM 112 mg/dL (74-106); POTASSIUM 4.5 mmol/L (3.5-5.1); SGOT/AST 11 U/L (15-37); SGPT/ALT 11 U/L (13-61); SODIUM 134 mmol/L (136-145); TOT PROT 6.1 g/dl (6.4-8.2)
[2018-08-26 07:36] LABS: CREATININE 8.6 mg/dL (0.55-1.3)
[2018-08-26 07:39] LABS: PROTHROMBIN TIME (PATIENT) 54.3 SEC (9.7-13.0)
[2018-08-26 07:57] LABS: INR 4.53 (0.83-1.09)
[2018-08-26] MEDS: SEVELAMER CARBONATE 800 MG TAB (FP) PO SCH ×3 (08:46→17:22)
[2018-08-26] MEDS: MIDODRINE HCL 5 MG TABLET PO SCH ×3 (10:00→17:23)
--- NOTE | 2018-08-26 11:14 | PN ---
Progress Note (short form) - Note Progress Note: awaiting cta results Vital Signs Period Temp Pulse Resp BP Sys/Prince Pulse Ox Last 24 Hr 97.5 F-98.3 F 72-95 20-20 104-109/50-54 cor-rrr lungs clear abd soft,nt ext increased erythema of the right foot dorsum, toes 1/3/5 remain gangrenous with a blister on the 1st toe left big toe is dryer less erythema CBC, BMP 08/26/18 06:15 08/26/18 06:15 Microbiology 08/20/18 21:45 Blood - Peripheral Venous Blood Culture - Final NO GROWTH AFTER 5 DAYS INCUBATION 08/20/18 21:30 Blood - Peripheral Venous Blood Culture - Final NO GROWTH AFTER 5 DAYS INCUBATION a/p multiple toes with dry gangrene with surrounding cellulitis no fever penicillin allergy- mouth swells esrd for 15 years DM 2003 afib on coumadin vascular surgery evaluation in progress penicillin allergy d/c tygacil switch to vanco/azactam/flagyl awiating surgical intervention Problem List - Problems (1) Gangrene Code(s): I96 - GANGRENE, NOT ELSEWHERE CLASSIFIED (2) Cellulitis Code(s): L03.90 - CELLULITIS, UNSPECIFIED (3) ESRD (end stage renal disease) on dialysis Code(s): N18.6 - END STAGE RENAL DISEASE; Z99.2 - DEPENDENCE ON RENAL DIALYSIS (4) Diabetes Code(s): E11.9 - TYPE 2 DIABETES MELLITUS WITHOUT COMPLICATIONS (5) Diabetes mellitus, insulin dependent (IDDM), uncontrolled Code(s): E10.65 - TYPE 1 DIABETES MELLITUS WITH HYPERGLYCEMIA (6) Penicillin allergy Code(s): Z88.0 - ALLERGY STATUS TO PENICILLIN
[2018-08-26] MEDS ORDERED: VANCOMYCIN 1 GRAM (PRE-DOCKED) 1,000 MG/250 ML BAG IVPB ONE (11:15)
--- NOTE | 2018-08-26 11:51 | PN ---
Progress Note, Physician Chief Complaint: ESRD B/L pedal gangrene History of Present Illness: Going for HD today CTA aorta results pending, done on 07/26/18 - Current Medication List Current Medications: Active Medications Sodium Chloride (Normal Saline -) 250 mls @ 3,000 mls/hr IV PRN PRN PRN Reason: Hypotension during Dialysis Stop: 08/27/18 06:23 Vancomycin HCl (Vancomycin (Pre-Docked)) 1,000 mg in 250 mls @ 166.667 mls/hr IVPB ONCE ONE; Protocol Stop: 08/26/18 12:44 Aztreonam 0.5 gm/ Dextrose 50 mls @ 100 mls/hr IVPB BID [facility]; Protocol Metronidazole (Flagyl 500mg Premixed Ivpb -) 500 mg in 100 mls @ 100 mls/hr IVPB Q8H-IV [facility] Insulin Aspart (Novolog Vial Sliding Scale -) 1 vial SQ ACHS [facility]; Protocol Last Admin: 08/26/18 06:15 Dose: Not Given Insulin Detemir (Levemir Vial) 15 units SQ AM [facility] Last Admin: 08/26/18 06:14 Dose: Not Given Midodrine (Proamatine -) 5 mg PO TID-MID [facility] Last Admin: 08/25/18 18:04 Dose: Not Given Multivit/Ca Carb/B Cmplx/FA/Prenat (Nephro-Mahi -) 1 tablet PO DAILY [facility] Last Admin: 08/25/18 10:04 Dose: 1 tablet Sertraline HCl (Zoloft -) 25 mg PO DAILY [facility] Last Admin: 08/25/18 10:04 Dose: 25 mg Sevelamer Carbonate (Renvela -) 2,400 mg PO CM [facility] Last Admin: 08/26/18 08:46 Dose: 2,400 mg Warfarin Sodium (Coumadin -) 10 mg PO DAILY@1800 [facility] Last Admin: 08/24/18 17:05 Dose: 10 mg - Objective Vital Signs: Vital Signs Temperature 97.5 F L 08/26/18 09:03 Pulse Rate 95 H 08/26/18 09:03 Respiratory Rate 20 08/26/18 09:03 Blood Pressure 109/54 L 08/26/18 09:03 O2 Sat by Pulse Oximetry (%) 98 08/21/18 04:34 Constitutional: Yes: Well Nourished, No Distress, Calm Cardiovascular: Yes: Regular Rate and Rhythm Respiratory: Yes: Regular Gastrointestinal: Yes: Normal Bowel Sounds, Soft Musculoskeletal: Yes: Muscle Pain (Right toes) Neurological: Yes: Alert, Oriented Psychiatric: Yes: Alert, Oriented Labs: CBC, BMP 08/26/18 06:15 08/26/18 06:15 INR, PTT INR 4.53 (0.83-1.09) H* 08/26/18 06:15 Problem List - Problems (1) Cellulitis Assessment/Plan: -IV abx -afebrile -Seen by ID -Blood cultures negative Code(s): L03.90 - CELLULITIS, UNSPECIFIED (2) Gangrene Assessment/Plan: -Seen by podiatry and Vascular surgery -CT aorta runoff results pending -will need angiogram and then likely debridement Code(s): I96 - GANGRENE, NOT ELSEWHERE CLASSIFIED (3) Anemia Assessment/Plan: -2/2 to CKD -monitor trend -check Iron studies Code(s): D64.9 - ANEMIA, UNSPECIFIED Qualifiers: Anemia type: other cause Other causes of anemia: chronic disease, kidney (4) Diabetes 1.5, managed as type 2 Assessment/Plan: -BGM AC HS -Endocrinology on board -A1c at 6.1 -Levemir + Novolog sliding scale Code(s): E13.9 - OTHER SPECIFIED DIABETES MELLITUS WITHOUT COMPLICATIONS (5) ESRD (end stage renal disease) on dialysis Assessment/Plan: -Nephrology on board -Dialysis as per Renal Code(s): N18.6 - END STAGE RENAL DISEASE; Z99.2 - DEPENDENCE ON RENAL DIALYSIS Assessment/Plan See problem list Physical therapy
[2018-08-26] MEDS: ALBUMIN HUMAN 25% 12.5 GM/50 ML VIAL IVPB SCH ×4 (12:00→13:30)
--- NOTE | 2018-08-26 12:00 | PN ---
Progress Note (short form) - Note Progress Note: Renal follow up for ESRD on HD Pt seen and examined at the bedside complains of leg swelling no sob, cp, abd pain, N/V/D Vital Signs Temperature 97.5 F L 08/26/18 09:03 Pulse Rate 95 H 08/26/18 09:03 Respiratory Rate 20 08/26/18 09:03 Blood Pressure 109/54 L 08/26/18 09:03 O2 Sat by Pulse Oximetry (%) 98 08/21/18 04:34 Intake & Output 08/23/18 08/24/18 08/25/18 08/26/18 23:59 23:59 23:59 23:59 Intake Total 550 1000 1500 300 Output Total 0 1 Balance 550 1000 1500 299 Weight 113.398 kg 112.094 kg 110.875 kg 110.393 kg NAD awake and alert irregular, no M/R CTA soft, obese, NT/ND CBC, BMP 08/26/18 06:15 08/26/18 06:15 Current Medications Albumin Human (Albumin Human 25%) 12.5 gm IVPB Q30M [facility] Sodium Chloride (Normal Saline -) 250 mls @ 3,000 mls/hr IV PRN PRN PRN Reason: Hypotension during Dialysis Stop: 08/27/18 06:23 Vancomycin HCl (Vancomycin (Pre-Docked)) 1,000 mg in 250 mls @ 166.667 mls/hr IVPB ONCE ONE; Protocol Stop: 08/26/18 12:44 Aztreonam 0.5 gm/ Dextrose 50 mls @ 100 mls/hr IVPB BID [facility]; Protocol Metronidazole (Flagyl 500mg Premixed Ivpb -) 500 mg in 100 mls @ 100 mls/hr IVPB Q8H-IV [facility] Sodium Chloride (Normal Saline -) 250 mls @ 3,000 mls/hr IV PRN PRN PRN Reason: Hypotension during Dialysis Stop: 08/27/18 11:58 Insulin Aspart (Novolog Vial Sliding Scale -) 1 vial SQ ACHS [facility]; Protocol Last Admin: 08/26/18 06:15 Dose: Not Given Insulin Detemir (Levemir Vial) 15 units SQ AM [facility] Last Admin: 08/26/18 06:14 Dose: Not Given Metoprolol Succinate (Toprol Xl -) 12.5 mg PO DAILY [facility] Midodrine (Proamatine -) 5 mg PO TID-MID [facility] Last Admin: 08/25/18 18:04 Dose: Not Given Multivit/Ca Carb/B Cmplx/FA/Prenat (Nephro-Mahi -) 1 tablet PO DAILY [facility] Last Admin: 08/25/18 10:04 Dose: 1 tablet Sertraline HCl (Zoloft -) 25 mg PO DAILY [facility] Last Admin: 08/25/18 10:04 Dose: 25 mg Sevelamer Carbonate (Renvela -) 2,400 mg PO CM [facility] Last Admin: 08/26/18 08:46 Dose: 2,400 mg Warfarin Sodium (Coumadin -) 10 mg PO DAILY@1800 [facility] Last Admin: 08/24/18 17:05 Dose: 10 mg 77 year old woman with hx of ESRD on HD, DM, Afib on Coumadin, CHF, Hypertension, HLD who presented with 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 #Gangrene of Foot r/o vascular insufficiency #ESRD on HD #DM #CKD related Anemia #Chronic Hypotension #Afib on Coumadin TMA postponed due to high INR will get HD today with goal UF of 3L a tolerated will use Albumin and low temp during HD to maintain BP Vascular and podiatry follow up Thank you Alon Page DO
--- NOTE | 2018-08-26 12:06 | PN ---
Progress Note (short form) - Note Progress Note: fuv right foot. Complains left foot having problem now. vss, tmax 98.7 +demarcation of gangarene, +cellulitis right foot, +5th toe completely dry gangarene, +drainage left big toe, +early gangarene, CTA not read yet gangarene PVD Will watch demarcation of foot. Discussed with Dr. Alarcon. Will do angiogram first. Patient taken off OR schedule for Sunday. Once vascular clearance for debridement will take to OR. Dry dressing change to right foot and left foot.
[2018-08-26] MEDS: TIGECYCLINE 50 MG in DEXTROSE 5%-WATER - 100 ML IVPB SCH (12:07)
[2018-08-26] MEDS: metoPROLOL SUCCINATE 25 MG TAB.SR.24H (FP) PO SCH (12:07)
[2018-08-26] MEDS: AZTREONAM 0.5 GM in DEXTROSE 5%-WATER - 50 ML IVPB SCH ×2 (17:15→22:17)
[2018-08-26] MEDS: VITAMIN B COMP W-C 1 EA TABLET PO SCH (17:17)
[2018-08-26] MEDS: SERTRALINE HCL 25 MG TABLET (FP) PO SCH (17:18)
[2018-08-26] MEDS: WARFARIN NA 5 MG TABLET (UD) PO SCH (17:20)
[2018-08-26] MEDS ORDERED: PT OWN MED DRAWER 7, Y5N ONE ×2 (17:23→21:43)
[2018-08-27] MEDS: INSULIN (LEVEMIR) 100 UNITS/ML UNITS SQ SCH (06:35)
[2018-08-27] MEDS: INSULIN SLIDING SCALE (NOVOLOG) 1 VIAL SQ SCH ×4 (06:36→21:36)
--- NOTE | 2018-08-27 09:42 | PN ---
Progress Note (short form) - Note Progress Note: Vascular Surgery Gangrene toes both feet. CTa not officially read as of yet. Pt will need clearance in case she needs angiogram. INR is also 4.53. Please hold AC so we can possibly do angio on . Narciso Alarcon DO
[2018-08-27] MEDS ORDERED: PT OWN MED DRAWER 7, Y5N ONE ×2 (10:18→21:22)
[2018-08-27] MEDS: VITAMIN B COMP W-C 1 EA TABLET PO SCH (10:21)
[2018-08-27] MEDS: SERTRALINE HCL 25 MG TABLET (FP) PO SCH (10:21)
[2018-08-27] MEDS: metoPROLOL SUCCINATE 25 MG TAB.SR.24H (FP) PO SCH (10:21)
[2018-08-27] MEDS: MIDODRINE HCL 5 MG TABLET PO SCH ×3 (10:22→17:59)
[2018-08-27] MEDS: AZTREONAM 0.5 GM in DEXTROSE 5%-WATER - 50 ML IVPB SCH ×2 (10:23→21:31)
[2018-08-27] MEDS: SEVELAMER CARBONATE 800 MG TAB (FP) PO SCH ×3 (10:28→17:57)
[2018-08-27] MEDS ORDERED: INSULIN (NOVOLOG) ASPART 100 UNITS/ML 10ML VIAL ONE ×2 (11:52→21:35)
[2018-08-27] MEDS ORDERED: SODIUM CHLORIDE 250 ML IV PRN (11:56)
--- NOTE | 2018-08-27 11:56 | PN ---
Progress Note (short form) - Note Progress Note: Renal follow up for ESRD on HD Pt seen and examined at the bedside no acute complaints s/p dialysis yesterday with 3.1L UF no sob, cp, abd pain, N/V/D Vital Signs Temperature 98.6 F 08/27/18 05:55 Pulse Rate 82 08/27/18 05:55 Respiratory Rate 20 08/27/18 05:55 Blood Pressure 92/54 L 08/27/18 05:55 O2 Sat by Pulse Oximetry (%) 98 08/26/18 21:00 Intake & Output 08/24/18 08/25/18 08/26/18 08/27/18 23:59 23:59 23:59 23:59 Intake Total 1000 1500 650 225 Output Total 1 Balance 1000 1500 649 225 Weight 112.094 kg 110.875 kg 110.393 kg 109.316 kg NAD awake and alert irregular, no M/R CTA soft, obese, NT/ND CBC, BMP 08/26/18 06:15 08/26/18 06:15 Current Medications Aztreonam 0.5 gm/ Dextrose 50 mls @ 100 mls/hr IVPB BID [facility]; Protocol Last Admin: 08/27/18 10:23 Dose: 100 mls/hr Metronidazole (Flagyl 500mg Premixed Ivpb -) 500 mg in 100 mls @ 100 mls/hr IVPB Q8H-IV [facility] Last Admin: 08/27/18 10:23 Dose: 100 mls/hr Sodium Chloride (Normal Saline -) 250 mls @ 3,000 mls/hr IV PRN PRN PRN Reason: Hypotension during Dialysis Stop: 08/27/18 12:50 Insulin Aspart (Novolog Vial Sliding Scale -) 1 vial SQ ACHS [facility]; Protocol Last Admin: 08/27/18 11:53 Dose: 3 units Insulin Detemir (Levemir Vial) 15 units SQ AM [facility] Last Admin: 08/27/18 06:35 Dose: 15 units Metoprolol Succinate (Toprol Xl -) 12.5 mg PO DAILY [facility] Last Admin: 08/27/18 10:21 Dose: 12.5 mg Midodrine (Proamatine -) 5 mg PO TID-MID [facility] Last Admin: 08/27/18 10:22 Dose: 5 mg Multivit/Ca Carb/B Cmplx/FA/Prenat (Nephro-Mahi -) 1 tablet PO DAILY [facility] Last Admin: 08/27/18 10:21 Dose: 1 tablet Sertraline HCl (Zoloft -) 25 mg PO DAILY [facility] Last Admin: 08/27/18 10:21 Dose: 25 mg Sevelamer Carbonate (Renvela -) 2,400 mg PO CM [facility] Last Admin: 08/27/18 11:50 Dose: Not Given Warfarin Sodium (Coumadin -) 10 mg PO DAILY@1800 [facility] Last Admin: 08/26/18 17:20 Dose: Not Given 77 year old woman with hx of ESRD on HD, DM, Afib on Coumadin, CHF, Hypertension, HLD who presented with 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 Next dialysis planned for tomorrow. For angiogram on pending improvement in INR continue Abx as per ID trend H/H Thank you Alon Page DO
--- NOTE | 2018-08-27 12:09 | PN ---
Progress Note, Physician Chief Complaint: ESRD B/L pedal gangrene History of Present Illness: HD yesterday CTA aorta results pending, done on 07/26/18 On IV abx afebrile ID on board + leukocytosis Seen by Vascular and podiatry for right foot gangrene Cleared by Cardiology for angiogram - Current Medication List Current Medications: Active Medications Aztreonam 0.5 gm/ Dextrose 50 mls @ 100 mls/hr IVPB BID [facility]; Protocol Last Admin: 08/27/18 10:23 Dose: 100 mls/hr Metronidazole (Flagyl 500mg Premixed Ivpb -) 500 mg in 100 mls @ 100 mls/hr IVPB Q8H-IV [facility] Last Admin: 08/27/18 10:23 Dose: 100 mls/hr Sodium Chloride (Normal Saline -) 250 mls @ 3,000 mls/hr IV PRN PRN PRN Reason: Hypotension during Dialysis Stop: 08/27/18 12:50 Sodium Chloride (Normal Saline -) 250 mls @ 3,000 mls/hr IV PRN PRN PRN Reason: Hypotension during Dialysis Stop: 08/28/18 11:56 Insulin Aspart (Novolog Vial Sliding Scale -) 1 vial SQ ACHS [facility]; Protocol Last Admin: 08/27/18 11:53 Dose: 3 units Insulin Detemir (Levemir Vial) 15 units SQ AM [facility] Last Admin: 08/27/18 06:35 Dose: 15 units Metoprolol Succinate (Toprol Xl -) 12.5 mg PO DAILY [facility] Last Admin: 08/27/18 10:21 Dose: 12.5 mg Midodrine (Proamatine -) 5 mg PO TID-MID [facility] Last Admin: 08/27/18 10:22 Dose: 5 mg Multivit/Ca Carb/B Cmplx/FA/Prenat (Nephro-Mahi -) 1 tablet PO DAILY [facility] Last Admin: 08/27/18 10:21 Dose: 1 tablet Sertraline HCl (Zoloft -) 25 mg PO DAILY [facility] Last Admin: 08/27/18 10:21 Dose: 25 mg Sevelamer Carbonate (Renvela -) 2,400 mg PO CM [facility] Last Admin: 08/27/18 11:50 Dose: Not Given Warfarin Sodium (Coumadin -) 10 mg PO DAILY@1800 [facility] Last Admin: 08/26/18 17:20 Dose: Not Given - Objective Vital Signs: Vital Signs Temperature 98.6 F 08/27/18 05:55 Pulse Rate 82 08/27/18 05:55 Respiratory Rate 20 08/27/18 05:55 Blood Pressure 92/54 L 08/27/18 05:55 O2 Sat by Pulse Oximetry (%) 98 08/26/18 21:00 Constitutional: Yes: Well Nourished, No Distress, Calm Cardiovascular: Yes: Regular Rate and Rhythm Respiratory: Yes: Regular Gastrointestinal: Yes: Normal Bowel Sounds, Soft Musculoskeletal: Yes: Muscle Weakness Extremities: Yes: Other (Gangrene right toes) Wound/Incision: Yes: Well Approximated, Dressing Dry and Intact Neurological: Yes: Alert, Oriented Psychiatric: Yes: Alert, Oriented Labs: CBC, BMP 08/26/18 06:15 08/26/18 06:15 INR, PTT INR 4.53 (0.83-1.09) H* 08/26/18 06:15 Problem List - Problems (1) Cellulitis Assessment/Plan: -IV abx -afebrile -Seen by ID -Blood cultures negative Code(s): L03.90 - CELLULITIS, UNSPECIFIED (2) Gangrene Assessment/Plan: -Seen by podiatry and Vascular surgery -CT aorta runoff results pending -will need angiogram and then likely debridement Code(s): I96 - GANGRENE, NOT ELSEWHERE CLASSIFIED (3) Anemia Assessment/Plan: -2/2 to CKD -monitor trend - Code(s): D64.9 - ANEMIA, UNSPECIFIED Qualifiers: Anemia type: other cause Other causes of anemia: chronic disease, kidney (4) Diabetes 1.5, managed as type 2 Assessment/Plan: -BGM AC HS -Endocrinology on board -A1c at 6.1 -Levemir + Novolog sliding scale Code(s): E13.9 - OTHER SPECIFIED DIABETES MELLITUS WITHOUT COMPLICATIONS (5) ESRD (end stage renal disease) on dialysis Assessment/Plan: -Nephrology on board -Dialysis as per Renal Code(s): N18.6 - END STAGE RENAL DISEASE; Z99.2 - DEPENDENCE ON RENAL DIALYSIS Assessment/Plan see problem list Physical therapy
--- NOTE | 2018-08-27 16:03 | PN ---
Progress Note (short form) - Note Progress Note: awaiting cta results Vital Signs Period Temp Pulse Resp BP Sys/Prince Pulse Ox Last 24 Hr 98.6 F-99.1 F 76-88 18-20 89-114/49-70 98-98 cor-rrr lungs clear abd soft,nt ext decreased erythema of the right foot dorsum, toes 1/3/5 remain gangrenous with a blister on the 1st toe that has popped with malodorous drainage left big toe is dryer less erythema CBC, BMP 08/26/18 06:15 08/26/18 06:15 Microbiology 08/20/18 21:45 Blood - Peripheral Venous Blood Culture - Final NO GROWTH AFTER 5 DAYS INCUBATION 08/20/18 21:30 Blood - Peripheral Venous Blood Culture - Final NO GROWTH AFTER 5 DAYS INCUBATION a/p multiple toes with dry gangrene with surrounding cellulitis no fever penicillin allergy- mouth swells esrd for 15 years DM 2003 afib on coumadin vascular surgery evaluation in progress penicillin allergy vanco by level azactam/flagyl awiating surgical intervention Problem List - Problems (1) Gangrene Code(s): I96 - GANGRENE, NOT ELSEWHERE CLASSIFIED (2) Cellulitis Code(s): L03.90 - CELLULITIS, UNSPECIFIED (3) ESRD (end stage renal disease) on dialysis Code(s): N18.6 - END STAGE RENAL DISEASE; Z99.2 - DEPENDENCE ON RENAL DIALYSIS (4) Diabetes Code(s): E11.9 - TYPE 2 DIABETES MELLITUS WITHOUT COMPLICATIONS (5) Diabetes mellitus, insulin dependent (IDDM), uncontrolled Code(s): E10.65 - TYPE 1 DIABETES MELLITUS WITH HYPERGLYCEMIA (6) Penicillin allergy Code(s): Z88.0 - ALLERGY STATUS TO PENICILLIN
--- NOTE | 2018-08-28 01:41 | PN ---
Progress Note, Physician Chief Complaint: comfortable no complaint - Current Medication List Current Medications: Active Medications Aztreonam 0.5 gm/ Dextrose 50 mls @ 100 mls/hr IVPB BID [facility]; Protocol Last Admin: 08/27/18 21:31 Dose: 100 mls/hr Metronidazole (Flagyl 500mg Premixed Ivpb -) 500 mg in 100 mls @ 100 mls/hr IVPB Q8H-IV [facility] Last Admin: 08/28/18 01:26 Dose: 100 mls/hr Sodium Chloride (Normal Saline -) 250 mls @ 3,000 mls/hr IV PRN PRN PRN Reason: Hypotension during Dialysis Stop: 08/28/18 11:56 Insulin Aspart (Novolog Vial Sliding Scale -) 1 vial SQ ACHS [facility]; Protocol Last Admin: 08/27/18 21:36 Dose: 3 units Insulin Detemir (Levemir Vial) 15 units SQ AM [facility] Last Admin: 08/27/18 06:35 Dose: 15 units Metoprolol Succinate (Toprol Xl -) 12.5 mg PO DAILY [facility] Last Admin: 08/27/18 10:21 Dose: 12.5 mg Midodrine (Proamatine -) 5 mg PO TID-MID [facility] Last Admin: 08/27/18 17:59 Dose: 5 mg Multivit/Ca Carb/B Cmplx/FA/Prenat (Nephro-Mahi -) 1 tablet PO DAILY [facility] Last Admin: 08/27/18 10:21 Dose: 1 tablet Sertraline HCl (Zoloft -) 25 mg PO DAILY [facility] Last Admin: 08/27/18 10:21 Dose: 25 mg Sevelamer Carbonate (Renvela -) 2,400 mg PO CM [facility] Last Admin: 08/27/18 17:57 Dose: 2,400 mg Warfarin Sodium (Coumadin -) 10 mg PO DAILY@1800 [facility] Last Admin: 08/26/18 17:20 Dose: Not Given - Objective Vital Signs: Vital Signs Temperature 99.0 F 08/27/18 23:00 Pulse Rate 80 08/27/18 23:00 Respiratory Rate 20 08/27/18 23:00 Blood Pressure 90/50 L 08/27/18 23:00 O2 Sat by Pulse Oximetry (%) 98 08/27/18 21:00 Constitutional: Yes: Calm Eyes: Yes: EOM Intact HENT: Yes: Normocephalic Neck: Yes: Trachea Midline Cardiovascular: Yes: Regular Rate and Rhythm Respiratory: Yes: CTA Bilaterally Gastrointestinal: Yes: Normal Bowel Sounds Extremities: Yes: Delayed Capillary Refill Edema: No Peripheral Pulses: Left Doralis Pedis: 1+, Right Dorsalis Pedis: 1+, Left Femoral: 3+, Right Femoral: 2+ Wound/Incision: Yes: Open to air Neurological: Yes: Alert, Oriented Labs: CBC, BMP 08/26/18 06:15 08/26/18 06:15 INR, PTT INR 4.53 (0.83-1.09) H* 08/26/18 06:15 Problem List - Problems (1) Diabetes 1.5, managed as type 2 Code(s): E13.9 - OTHER SPECIFIED DIABETES MELLITUS WITHOUT COMPLICATIONS (2) Cellulitis Code(s): L03.90 - CELLULITIS, UNSPECIFIED (3) Gangrene Code(s): I96 - GANGRENE, NOT ELSEWHERE CLASSIFIED (4) Penicillin allergy Code(s): Z88.0 - ALLERGY STATUS TO PENICILLIN (5) Acute electrocardiogram changes Code(s): R94.31 - ABNORMAL ELECTROCARDIOGRAM [ECG] [EKG] (6) Anemia Code(s): D64.9 - ANEMIA, UNSPECIFIED Qualifiers: Anemia type: other cause Other causes of anemia: chronic disease, kidney (7) Atrial fibrillation Code(s): I48.91 - UNSPECIFIED ATRIAL FIBRILLATION Qualifiers: Atrial fibrillation type: chronic Qualified Code(s): I48.2 - Chronic atrial fibrillation (8) Type 2 diabetes mellitus with diabetic peripheral angiopathy without gangrene Code(s): E11.51 - TYPE 2 DIABETES W DIABETIC PERIPHERAL ANGIOPATH W/O GANGRENE Assessment/Plan Current Active Problems Cellulitis (Acute) Diabetes 1.5, managed as type 2 (Acute) Gangrene (Acute) Penicillin allergy (Acute) Type 2 diabetes mellitus with diabetic peripheral angiopathy without gangrene ( Acute) Laboratory Results - last 24 hr 08/27/18 08/27/18 08/27/18 06:34 11:46 17:19 POC Glucometer 137 183 112 08/27/18 21:29 POC Glucometer 177 plan: bgm qid novolog insulin scale adjusted for poor appetite and skin lesions cta performed await surgery follow up
[2018-08-28] MEDS: INSULIN SLIDING SCALE (NOVOLOG) 1 VIAL SQ SCH ×4 (06:36→21:58)
[2018-08-28] MEDS: INSULIN (LEVEMIR) 100 UNITS/ML UNITS SQ SCH (06:38)
[2018-08-28 08:14] LABS: HEMATOCRIT 31.6 % (32.4-45.2); HEMOGLOBIN 10.8 GM/dL (10.7-15.3); MCH 32.2 pg (25.7-33.7); MCHC 34.1 g/dl (32.0-36.0); MEAN CELL VOLUME 94.5 fl (80-96); MEAN PLT VOLUME 8.9 fl (7.5-11.1); PLATELET COUNT 250 K/MM3 (134-434); RBC 3.35 M/mm3 (3.60-5.2); RDW 14.8 % (11.6-15.6); WHITE BLOOD COUNT 10.8 K/mm3 (4.0-10.0)
[2018-08-28 08:26] LABS: ANION GAP 12 MMOL/L (8-16); BLOOD UREA NITROGEN 76 mg/dL (7-18); CALCIUM 8.5 mg/dL (8.5-10.1); CHLORIDE 97 mmol/L (98-107); CO2 27 mmol/L (21-32); GLUCOSE,RANDOM 92 mg/dL (74-106); INR 3.46 (0.83-1.09); PHOSPHOROUS 5.1 mg/dL (2.5-4.9); POTASSIUM 4.2 mmol/L (3.5-5.1); PROTHROMBIN TIME (PATIENT) 41.4 SEC (9.7-13.0); SODIUM 136 mmol/L (136-145)
[2018-08-28] MEDS: SEVELAMER CARBONATE 800 MG TAB (FP) PO SCH ×3 (08:44→16:59)
[2018-08-28 08:48] LABS: CREATININE 8.4 mg/dL (0.55-1.3)
--- NOTE | 2018-08-28 11:47 | PN ---
Progress Note (short form) - Note Progress Note: VAscular Surgery CTA reviewed. There is tibial disease in the right leg. Pt will need angiogram to try to see runoff into foot and salvage toes. Pt is cleared by cardiology INR is 3.5. Once normal will do angio. Once INR falls below 2.0, please start IV heparin. Will be on standby Narciso Alarcon DO
--- NOTE | 2018-08-28 12:54 | PN ---
Progress Note (short form) - Note Progress Note: fuv b/l feet. vss, tmax 98.6 +demarcation of gangarene, +cellulitis right foot, +5th toe completely dry gangarene, +drainage left big toe, +early gangarene, CTA report reviewed gangarene PVD Will watch demarcation of foot. Vascular intervention tomorrow. Once vascular clearance for debridement will take to OR. Dry dressing change to right foot and left foot.
[2018-08-28] MEDS: MIDODRINE HCL 5 MG TABLET PO SCH ×3 (13:13→17:00)
[2018-08-28] MEDS: VITAMIN B COMP W-C 1 EA TABLET PO SCH (13:27)
[2018-08-28] MEDS: AZTREONAM 0.5 GM in DEXTROSE 5%-WATER - 50 ML IVPB SCH ×2 (13:27→22:34)
[2018-08-28] MEDS: SERTRALINE HCL 25 MG TABLET (FP) PO SCH (13:28)
[2018-08-28] MEDS: metoPROLOL SUCCINATE 25 MG TAB.SR.24H (FP) PO SCH (13:39)
--- NOTE | 2018-08-28 13:41 | PN ---
Progress Note, Physician Chief Complaint: patient back from HD coumadin on hold to get angiogam once INR <2 once INR < 2 start heparin drip - Current Medication List Current Medications: Active Medications Aztreonam 0.5 gm/ Dextrose 50 mls @ 100 mls/hr IVPB BID [facility]; Protocol Last Admin: 08/27/18 21:31 Dose: 100 mls/hr Metronidazole (Flagyl 500mg Premixed Ivpb -) 500 mg in 100 mls @ 100 mls/hr IVPB Q8H-IV [facility] Last Admin: 08/28/18 01:26 Dose: 100 mls/hr Sodium Chloride (Normal Saline -) 250 mls @ 3,000 mls/hr IV PRN PRN PRN Reason: Hypotension during Dialysis Stop: 08/28/18 11:56 Insulin Aspart (Novolog Vial Sliding Scale -) 1 vial SQ ACHS [facility]; Protocol Last Admin: 08/28/18 06:36 Dose: Not Given Insulin Detemir (Levemir Vial) 15 units SQ AM [facility] Last Admin: 08/28/18 06:38 Dose: 15 units Metoprolol Succinate (Toprol Xl -) 12.5 mg PO DAILY [facility] Last Admin: 08/27/18 10:21 Dose: 12.5 mg Midodrine (Proamatine -) 5 mg PO TID-MID [facility] Last Admin: 08/28/18 13:13 Dose: Not Given Multivit/Ca Carb/B Cmplx/FA/Prenat (Nephro-Mahi -) 1 tablet PO DAILY [facility] Last Admin: 08/27/18 10:21 Dose: 1 tablet Sertraline HCl (Zoloft -) 25 mg PO DAILY [facility] Last Admin: 08/27/18 10:21 Dose: 25 mg Sevelamer Carbonate (Renvela -) 2,400 mg PO CM [facility] Last Admin: 08/28/18 08:44 Dose: Not Given Warfarin Sodium (Coumadin -) 10 mg PO DAILY@1800 [facility] Last Admin: 08/26/18 17:20 Dose: Not Given - Objective Vital Signs: Vital Signs Temperature 97.9 F 08/28/18 07:55 Pulse Rate 80 08/28/18 12:24 Respiratory Rate 18 08/28/18 12:24 Blood Pressure 85/46 L 08/28/18 12:24 O2 Sat by Pulse Oximetry (%) 98 08/27/18 21:00 Constitutional: Yes: Calm Cardiovascular: Yes: Regular Rate and Rhythm, S1, S2 Respiratory: Yes: CTA Bilaterally Gastrointestinal: Yes: Normal Bowel Sounds, Soft Extremities: Yes: Other (right foot toes black discoloration malodorous dishcrge ) Labs: CBC, BMP 08/28/18 06:00 08/28/18 06:00 INR, PTT INR 3.46 (0.83-1.09) H 08/28/18 06:00 Problem List - Problems (1) Gangrene Assessment/Plan: CTA - tibial disease in right leg couamdin on hold start iv heparin once INR< 2 vascular on board iv abx Code(s): I96 - GANGRENE, NOT ELSEWHERE CLASSIFIED (2) Atrial fibrillation Assessment/Plan: hold coumadin start heparin once drip < 2.0 hold toprol given low BP Code(s): I48.91 - UNSPECIFIED ATRIAL FIBRILLATION Qualifiers: Atrial fibrillation type: chronic Qualified Code(s): I48.2 - Chronic atrial fibrillation (3) ESRD (end stage renal disease) on dialysis Assessment/Plan: HD today per renal Code(s): N18.6 - END STAGE RENAL DISEASE; Z99.2 - DEPENDENCE ON RENAL DIALYSIS (4) Diabetes 1.5, managed as type 2 Assessment/Plan: on insulin Code(s): E13.9 - OTHER SPECIFIED DIABETES MELLITUS WITHOUT COMPLICATIONS
[2018-08-28] MEDS ORDERED: VANCOMYCIN 1 GM PREMIX - 1 GM/200 ML BAG IVPB ONE (14:03)
--- NOTE | 2018-08-28 15:09 | PN ---
Progress Note (short form) - Note Progress Note: Renal follow up for ESRD on HD Pt seen and examined at the bedside no acute complaints had dialysis this am w/o issue tolerated 3L UF No CP, SOB, dizziness, pain, fevers Vital Signs Temperature 97.6 F 08/28/18 13:39 Pulse Rate 90 08/28/18 13:39 Respiratory Rate 20 08/28/18 13:39 Blood Pressure 79/40 L 08/28/18 13:39 O2 Sat by Pulse Oximetry (%) 97 08/28/18 09:00 Intake & Output 08/25/18 08/26/18 08/27/18 08/28/18 23:59 23:59 23:59 23:59 Intake Total 9560 517 3964 525 Output Total 1 Balance 6971 916 2256 525 Weight 110.875 kg 110.393 kg 109.316 kg 109.089 kg NAD awake and alert irregular, no M/R CTA soft, obese, NT/ND CBC, BMP 08/28/18 06:00 08/28/18 06:00 Current Medications Aztreonam 0.5 gm/ Dextrose 50 mls @ 100 mls/hr IVPB BID [facility]; Protocol Last Admin: 08/28/18 13:27 Dose: 100 mls/hr Metronidazole (Flagyl 500mg Premixed Ivpb -) 500 mg in 100 mls @ 100 mls/hr IVPB Q8H-IV [facility] Last Admin: 08/28/18 13:27 Dose: 100 mls/hr Sodium Chloride (Normal Saline -) 250 mls @ 3,000 mls/hr IV PRN PRN PRN Reason: Hypotension during Dialysis Stop: 08/28/18 11:56 Vancomycin HCl (Vancomycin 1 Gm Premix -) 1 gm in 200 mls @ 133.333 mls/hr IVPB ONCE ONE; Protocol Stop: 08/28/18 15:32 Insulin Aspart (Novolog Vial Sliding Scale -) 1 vial SQ ACHS [facility]; Protocol Last Admin: 08/28/18 13:28 Dose: Not Given Insulin Detemir (Levemir Vial) 15 units SQ AM [facility] Last Admin: 08/28/18 06:38 Dose: 15 units Metoprolol Succinate (Toprol Xl -) 12.5 mg PO DAILY [facility] Last Admin: 08/28/18 13:39 Dose: Not Given Midodrine (Proamatine -) 5 mg PO TID-MID [facility] Last Admin: 08/28/18 13:28 Dose: 5 mg Multivit/Ca Carb/B Cmplx/FA/Prenat (Nephro-Mahi -) 1 tablet PO DAILY [facility] Last Admin: 08/28/18 13:27 Dose: 1 tablet Sertraline HCl (Zoloft -) 25 mg PO DAILY [facility] Last Admin: 08/28/18 13:28 Dose: 25 mg Sevelamer Carbonate (Renvela -) 2,400 mg PO CM [facility] Last Admin: 08/28/18 13:30 Dose: 2,400 mg Warfarin Sodium (Coumadin -) 10 mg PO DAILY@1800 [facility] Last Admin: 08/26/18 17:20 Dose: Not Given 77 year old woman with hx of ESRD on HD, DM, Afib on Coumadin, CHF, Hypertension, HLD who presented with 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 #Gangrene of Foot r/o vascular insufficiency #ESRD on HD #DM #CKD related Anemia #Chronic Hypotension #Afib on Coumadin tolerated dialysis well this am for TMA tomorrow Trend INR Renal diet, 1.2L fluid restriction Thank you Alon Page DO
[2018-08-28] MEDS ORDERED: PT OWN MED DRAWER 7, Y5N ONE (21:41)
[2018-08-29] MEDS: AZTREONAM 0.5 GM in DEXTROSE 5%-WATER - 50 ML IVPB SCH ×3 (00:02→21:00)
[2018-08-29 04:13] LABS: SERUM IRON SATURATION 61 % (15-55); TOTAL IRON BINDING CAPACITY 93 ug/dL (250-450); UIBC 36 ug/dL (118-369)
[2018-08-29] MEDS: INSULIN SLIDING SCALE (NOVOLOG) 1 VIAL SQ SCH ×4 (06:45→21:25)
[2018-08-29] MEDS: INSULIN (LEVEMIR) 100 UNITS/ML UNITS SQ SCH (06:45)
[2018-08-29] MEDS: SEVELAMER CARBONATE 800 MG TAB (FP) PO SCH ×3 (08:12→17:28)
[2018-08-29 08:40] LABS: BASO % 0.5 % (0-2.0); EOS % 0.1 % (0-4.5); HEMATOCRIT 33.5 % (32.4-45.2); HEMOGLOBIN 10.9 GM/dL (10.7-15.3); LYMPH % 17.4 % (8-40); MCH 30.7 pg (25.7-33.7); MCHC 32.6 g/dl (32.0-36.0); MEAN PLT VOLUME 8.6 fl (7.5-11.1); MONO % 11.5 % (3.8-10.2); NEUT % 70.5 % (42.8-82.8); PLATELET COUNT 265 K/MM3 (134-434); RBC 3.56 M/mm3 (3.60-5.2); RDW 15.1 % (11.6-15.6); WHITE BLOOD COUNT 12.4 K/mm3 (4.0-10.0)
[2018-08-29 09:17] LABS: ALBUMIN 2.8 g/dl (3.4-5.0); ALK PHOS 92 U/L (45-117); ANION GAP 11 MMOL/L (8-16); BILIRUBIN,TOTAL 0.5 mg/dL (0.2-1); BLOOD UREA NITROGEN 44 mg/dL (7-18); CALCIUM 8.3 mg/dL (8.5-10.1); CHLORIDE 100 mmol/L (98-107); CO2 27 mmol/L (21-32); CREATININE 6.9 mg/dL (0.55-1.3); GLUCOSE,RANDOM 144 mg/dL (74-106); POTASSIUM 4.1 mmol/L (3.5-5.1); SGOT/AST 11 U/L (15-37); SGPT/ALT 9 U/L (13-61); SODIUM 138 mmol/L (136-145); TOT PROT 6.7 g/dl (6.4-8.2)
[2018-08-29] MEDS: metoPROLOL SUCCINATE 25 MG TAB.SR.24H (FP) PO SCH (09:17)
[2018-08-29] MEDS: SERTRALINE HCL 25 MG TABLET (FP) PO SCH (09:17)
[2018-08-29] MEDS: VITAMIN B COMP W-C 1 EA TABLET PO SCH (09:18)
[2018-08-29] MEDS: MIDODRINE HCL 5 MG TABLET PO SCH ×3 (09:18→17:28)
[2018-08-29] MEDS ORDERED: PT OWN MED DRAWER 7, Y5N ONE ×3 (09:18→16:29)
[2018-08-29 09:33] LABS: INR 2.16 (0.83-1.09); PROTHROMBIN TIME (PATIENT) 25.7 SEC (9.7-13.0)
--- NOTE | 2018-08-29 10:24 | PN ---
Progress Note, Physician Chief Complaint: patient seen ambulating in hallway INR 2.18 today no fever - Current Medication List Current Medications: Active Medications Aztreonam 0.5 gm/ Dextrose 50 mls @ 100 mls/hr IVPB BID [facility]; Protocol Last Admin: 08/29/18 00:02 Dose: 100 mls/hr Metronidazole (Flagyl 500mg Premixed Ivpb -) 500 mg in 100 mls @ 100 mls/hr IVPB Q8H-IV [facility] Last Admin: 08/29/18 09:17 Dose: 100 mls/hr Sodium Chloride (Normal Saline -) 250 mls @ 3,000 mls/hr IV PRN PRN PRN Reason: Hypotension during Dialysis Stop: 08/28/18 11:56 Insulin Aspart (Novolog Vial Sliding Scale -) 1 vial SQ ACHS [facility]; Protocol Last Admin: 08/29/18 06:45 Dose: Not Given Insulin Detemir (Levemir Vial) 15 units SQ AM [facility] Last Admin: 08/29/18 06:45 Dose: 15 units Metoprolol Succinate (Toprol Xl -) 12.5 mg PO DAILY [facility] Last Admin: 08/29/18 09:17 Dose: Not Given Midodrine (Proamatine -) 5 mg PO TID-MID [facility] Last Admin: 08/29/18 09:18 Dose: 5 mg Multivit/Ca Carb/B Cmplx/FA/Prenat (Nephro-Mahi -) 1 tablet PO DAILY [facility] Last Admin: 08/29/18 09:18 Dose: 1 tablet Sertraline HCl (Zoloft -) 25 mg PO DAILY [facility] Last Admin: 08/29/18 09:17 Dose: 25 mg Sevelamer Carbonate (Renvela -) 2,400 mg PO CM [facility] Last Admin: 08/29/18 08:12 Dose: 2,400 mg Warfarin Sodium (Coumadin -) 10 mg PO DAILY@1800 [facility] Last Admin: 08/26/18 17:20 Dose: Not Given - Objective Vital Signs: Vital Signs Temperature 97.4 F L 08/29/18 09:00 Pulse Rate 110 H 08/29/18 09:00 Respiratory Rate 20 08/29/18 09:00 Blood Pressure 94/48 L 08/29/18 09:00 O2 Sat by Pulse Oximetry (%) 98 08/29/18 00:23 Constitutional: Yes: Calm Neck: Yes: Other (neck line) Cardiovascular: Yes: Regular Rate and Rhythm, S1, S2 Respiratory: Yes: CTA Bilaterally Gastrointestinal: Yes: Normal Bowel Sounds, Soft Extremities: Yes: Other (right foot wrapped) Neurological: Yes: Alert, Oriented Labs: CBC, BMP 08/29/18 08:07 08/29/18 08:07 INR, PTT INR 2.16 (0.83-1.09) H 08/29/18 08:07 Problem List - Problems (1) Gangrene Assessment/Plan: CTA - tibial disease in right leg Coumadin on hold start iv heparin once INR< 2- today INR 2.18 vascular on board iv abx Code(s): I96 - GANGRENE, NOT ELSEWHERE CLASSIFIED (2) Atrial fibrillation Assessment/Plan: hold coumadin start heparin once drip < 2.0 hold toprol given low BP Code(s): I48.91 - UNSPECIFIED ATRIAL FIBRILLATION Qualifiers: Atrial fibrillation type: chronic Qualified Code(s): I48.2 - Chronic atrial fibrillation (3) ESRD (end stage renal disease) on dialysis Assessment/Plan: HD tmw per renal Code(s): N18.6 - END STAGE RENAL DISEASE; Z99.2 - DEPENDENCE ON RENAL DIALYSIS (4) Diabetes 1.5, managed as type 2 Assessment/Plan: on insulin Code(s): E13.9 - OTHER SPECIFIED DIABETES MELLITUS WITHOUT COMPLICATIONS
[2018-08-29] MEDS ORDERED: INSULIN (NOVOLOG) ASPART 100 UNITS/ML 10ML VIAL ONE (11:16)
--- NOTE | 2018-08-29 11:33 | PN ---
Progress Note (short form) - Note Progress Note: [facility] INR today is 2.16. Coming down. Will plan for angiogram soraya. NPO past midnight. Narciso Alarcon DO
--- NOTE | 2018-08-29 14:42 | PN ---
Progress Note (short form) - Note Progress Note: Renal follow up for ESRD on HD Pt seen and examined at the bedside no acute complaints angiogram deferred to tomorrow because of INR no sob, cp, abd pain s/p dialysis yesterday Vital Signs Temperature 99.4 F 08/29/18 14:22 Pulse Rate 79 08/29/18 14:22 Respiratory Rate 20 08/29/18 09:00 Blood Pressure 99/49 L 08/29/18 14:22 O2 Sat by Pulse Oximetry (%) 98 08/29/18 00:23 Intake & Output 08/26/18 08/27/18 08/28/18 08/29/18 23:59 23:59 23:59 23:59 Intake Total 650 1200 1425 500 Output Total 1 Balance 649 1200 1425 500 Weight 110.393 kg 109.316 kg 109.089 kg 108.153 kg NAD awake and alert irregular, no M/R CTA soft, obese, NT/ND CBC, BMP 08/29/18 08:07 08/29/18 08:07 Current Medications Aztreonam 0.5 gm/ Dextrose 50 mls @ 100 mls/hr IVPB BID [facility]; Protocol Last Admin: 08/29/18 10:50 Dose: 100 mls/hr Metronidazole (Flagyl 500mg Premixed Ivpb -) 500 mg in 100 mls @ 100 mls/hr IVPB Q8H-IV [facility] Last Admin: 08/29/18 09:17 Dose: 100 mls/hr Sodium Chloride (Normal Saline -) 250 mls @ 3,000 mls/hr IV PRN PRN PRN Reason: Hypotension during Dialysis Stop: 08/28/18 11:56 Insulin Aspart (Novolog Vial Sliding Scale -) 1 vial SQ ACHS [facility]; Protocol Last Admin: 08/29/18 11:36 Dose: 3 units Insulin Detemir (Levemir Vial) 15 units SQ AM [facility] Last Admin: 08/29/18 06:45 Dose: 15 units Midodrine (Proamatine -) 5 mg PO TID-MID [facility] Last Admin: 08/29/18 14:18 Dose: 5 mg Multivit/Ca Carb/B Cmplx/FA/Prenat (Nephro-Mahi -) 1 tablet PO DAILY [facility] Last Admin: 08/29/18 09:18 Dose: 1 tablet Sertraline HCl (Zoloft -) 25 mg PO DAILY [facility] Last Admin: 08/29/18 09:17 Dose: 25 mg Sevelamer Carbonate (Renvela -) 2,400 mg PO CM [facility] Last Admin: 08/29/18 11:37 Dose: 2,400 mg Warfarin Sodium (Coumadin -) 10 mg PO DAILY@1800 [facility] Last Admin: 08/26/18 17:20 Dose: Not Given 77 year old woman with hx of ESRD on HD, DM, Afib on Coumadin, CHF, Hypertension, HLD who presented with 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
[2018-08-29] MEDS ORDERED: HEPARIN NA (PORCINE) 5,000 UNITS/ML 1ML VIAL IVPUSH PRN ×2 (14:51)
--- NOTE | 2018-08-29 14:56 | PN ---
Progress Note (short form) - Note Progress Note: check iNR at 6:00pm today if INR < 2.0 start heparin drip and stop at 12:00 noon tmw Problem List - Problems (1) Gangrene Code(s): I96 - GANGRENE, NOT ELSEWHERE CLASSIFIED (2) Atrial fibrillation Code(s): I48.91 - UNSPECIFIED ATRIAL FIBRILLATION Qualifiers: Atrial fibrillation type: chronic Qualified Code(s): I48.2 - Chronic atrial fibrillation (3) ESRD (end stage renal disease) on dialysis Code(s): N18.6 - END STAGE RENAL DISEASE; Z99.2 - DEPENDENCE ON RENAL DIALYSIS (4) Diabetes 1.5, managed as type 2 Code(s): E13.9 - OTHER SPECIFIED DIABETES MELLITUS WITHOUT COMPLICATIONS
[2018-08-29] MEDS ORDERED: HEPARIN INFUSION - 25,000 UNITS/500 ML INFUS.BAG IV SCH ×2 (15:00→19:00)
--- NOTE | 2018-08-29 17:13 | PN ---
Progress Note (short form) - Note Progress Note: for angiogram in am Vital Signs Period Temp Pulse Resp BP Sys/Prince Pulse Ox Last 24 Hr 97.4 F-99.4 F 60-110 20-20 78-99/42-50 98 cor-rrr lungs clear abd soft,nt ext decreased erythema of the right foot dorsum, toes 1/3/5 remain gangrenous with a blister on the 1st toe that has popped with malodorous drainage left big toe is dryer less erythema CBC, BMP 08/29/18 08:07 08/29/18 08:07 Microbiology 08/20/18 21:45 Blood - Peripheral Venous Blood Culture - Final NO GROWTH AFTER 5 DAYS INCUBATION 08/20/18 21:30 Blood - Peripheral Venous Blood Culture - Final NO GROWTH AFTER 5 DAYS INCUBATION a/p multiple toes with dry gangrene with surrounding cellulitis no fever penicillin allergy- mouth swells esrd for 15 years DM 2003 afib on coumadin vascular surgery evaluation in progress penicillin allergy vanco by level-check level in am azactam/flagyl angio in am Problem List - Problems (1) Gangrene Code(s): I96 - GANGRENE, NOT ELSEWHERE CLASSIFIED (2) Cellulitis Code(s): L03.90 - CELLULITIS, UNSPECIFIED (3) ESRD (end stage renal disease) on dialysis Code(s): N18.6 - END STAGE RENAL DISEASE; Z99.2 - DEPENDENCE ON RENAL DIALYSIS (4) Diabetes Code(s): E11.9 - TYPE 2 DIABETES MELLITUS WITHOUT COMPLICATIONS (5) Diabetes mellitus, insulin dependent (IDDM), uncontrolled Code(s): E10.65 - TYPE 1 DIABETES MELLITUS WITH HYPERGLYCEMIA (6) Penicillin allergy Code(s): Z88.0 - ALLERGY STATUS TO PENICILLIN
[2018-08-29 19:09] LABS: INR 2.07 (0.83-1.09); PROTHROMBIN TIME (PATIENT) 24.6 SEC (9.7-13.0)
[2018-08-30] MEDS: INSULIN (LEVEMIR) 100 UNITS/ML UNITS SQ SCH (06:08)
[2018-08-30] MEDS: INSULIN SLIDING SCALE (NOVOLOG) 1 VIAL SQ SCH ×4 (06:09→21:18)
[2018-08-30] MEDS ORDERED: INSULIN (NOVOLOG) ASPART 100 UNITS/ML 10ML VIAL ONE ×2 (06:58→21:16)
[2018-08-30] MEDS: SEVELAMER CARBONATE 800 MG TAB (FP) PO SCH ×4 (08:02→17:43)
[2018-08-30 08:52] LABS: INR 1.74 (0.83-1.09); PROTHROMBIN TIME (PATIENT) 20.7 SEC (9.7-13.0)
[2018-08-30 08:55] LABS: ACTIVATED PTT 42.3 SECONDS (25.2-36.5)
[2018-08-30] MEDS: MIDODRINE HCL 5 MG TABLET PO SCH ×3 (09:32→18:35)
[2018-08-30] MEDS: VITAMIN B COMP W-C 1 EA TABLET PO SCH (09:32)
[2018-08-30] MEDS: SERTRALINE HCL 25 MG TABLET (FP) PO SCH (09:33)
[2018-08-30] MEDS: AZTREONAM 0.5 GM in DEXTROSE 5%-WATER - 50 ML IVPB SCH ×2 (11:00→21:13)
[2018-08-30] MEDS ORDERED: VANCOMYCIN 1 GM in D5W (PRE-DOCKED) 1,000 MG/250 ML IVPB ONE (11:48)
[2018-08-30] MEDS ORDERED: VANCOMYCIN 1 GM PREMIX - 1 GM/200 ML BAG IVPB ONE (12:00)
[2018-08-30] MEDS ORDERED: SODIUM CHLORIDE 250 ML IV PRN (13:14)
--- NOTE | 2018-08-30 13:14 | PN ---
Progress Note (short form) - Note Progress Note: Renal follow up for ESRD on HD Pt seen and examined at the bedside no acute complaints for angiogram this afternoon no sob, cp, abd pain, fever, chills, N/V Vital Signs Temperature 98.6 F 08/30/18 09:00 Pulse Rate 94 H 08/30/18 09:00 Respiratory Rate 20 08/30/18 09:00 Blood Pressure 100/46 L 08/30/18 09:00 O2 Sat by Pulse Oximetry (%) 98 08/29/18 22:00 Intake & Output 08/27/18 08/28/18 08/29/18 08/30/18 23:59 23:59 23:59 23:59 Intake Total 1200 1425 950 150 Balance 1200 1425 950 150 Weight 109.316 kg 109.089 kg 108.153 kg 108.681 kg NAD awake and alert irregular, no M/R CTA soft, obese, NT/ND CBC, BMP 08/29/18 08:07 08/29/18 08:07 Current Medications Heparin Sodium (Porcine) (Heparin -) 1,000 unit IVPUSH PRN PRN PRN Reason: Heparin Heparin Sodium (Porcine) (Heparin -) 5,000 unit IVPUSH PRN PRN PRN Reason: Heparin Aztreonam 0.5 gm/ Dextrose 50 mls @ 100 mls/hr IVPB BID [facility]; Protocol Last Admin: 08/30/18 11:00 Dose: 100 mls/hr Metronidazole (Flagyl 500mg Premixed Ivpb -) 500 mg in 100 mls @ 100 mls/hr IVPB Q8H-IV [facility] Last Admin: 08/30/18 09:25 Dose: 100 mls/hr Heparin Sodium/Dextrose (Heparin Infusion -) 25,000 units in 500 mls @ 16 mls/ hr IV TITR [facility]; Protocol Last Admin: 08/30/18 09:25 Dose: 800 units/hr, 16 mls/hr Vancomycin HCl (Vancomycin 1 Gm Premix -) 1 gm in 200 mls @ 133.333 mls/hr IVPB ONCE ONE Stop: 08/30/18 13:29 Last Admin: 08/30/18 12:59 Dose: 133.333 mls/hr Insulin Aspart (Novolog Vial Sliding Scale -) 1 vial SQ ACHS [facility]; Protocol Last Admin: 08/30/18 11:29 Dose: Not Given Insulin Detemir (Levemir Vial) 15 units SQ AM [facility] Last Admin: 08/30/18 06:08 Dose: Not Given Midodrine (Proamatine -) 5 mg PO TID-MID [facility] Last Admin: 08/30/18 09:32 Dose: Not Given Multivit/Ca Carb/B Cmplx/FA/Prenat (Nephro-Mahi -) 1 tablet PO DAILY [facility] Last Admin: 08/30/18 09:32 Dose: Not Given Sertraline HCl (Zoloft -) 25 mg PO DAILY [facility] Last Admin: 08/30/18 09:33 Dose: Not Given Sevelamer Carbonate (Renvela -) 2,400 mg PO CM [facility] Last Admin: 08/30/18 11:30 Dose: Not Given 77 year old woman with hx of ESRD on HD, DM, Afib on Coumadin, CHF, Hypertension, HLD who presented with 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 #Gangrene of Foot r/o vascular insufficiency #ESRD on HD #DM #CKD related Anemia #Chronic Hypotension #Afib on Coumadin will defer dialysis until tomorrow morning given pt to have angiogram late this afternoon no evidence of volume overload or hyperkalemia Vascular follow up Abx as per ID Renal diet Thank you Alon Page DO
--- NOTE | 2018-08-30 15:12 | PN ---
Progress Note, Physician Chief Complaint: patient is NPO heparin drip stopped at 1:00pm to go for angiograom today HD tmw - Current Medication List Current Medications: Active Medications Albumin Human (Albumin Human 25%) 12.5 gm IVPB Q30M [facility] Stop: 08/31/18 07:31 Heparin Sodium (Porcine) (Heparin -) 1,000 unit IVPUSH PRN PRN PRN Reason: Heparin Heparin Sodium (Porcine) (Heparin -) 5,000 unit IVPUSH PRN PRN PRN Reason: Heparin Aztreonam 0.5 gm/ Dextrose 50 mls @ 100 mls/hr IVPB BID [facility]; Protocol Last Admin: 08/30/18 11:00 Dose: 100 mls/hr Metronidazole (Flagyl 500mg Premixed Ivpb -) 500 mg in 100 mls @ 100 mls/hr IVPB Q8H-IV [facility] Last Admin: 08/30/18 09:25 Dose: 100 mls/hr Heparin Sodium/Dextrose (Heparin Infusion -) 25,000 units in 500 mls @ 16 mls/ hr IV TITR [facility]; Protocol Last Admin: 08/30/18 09:25 Dose: 800 units/hr, 16 mls/hr Sodium Chloride (Normal Saline -) 250 mls @ 3,000 mls/hr IV PRN PRN PRN Reason: Hypotension during Dialysis Stop: 08/31/18 13:14 Insulin Aspart (Novolog Vial Sliding Scale -) 1 vial SQ ACHS [facility]; Protocol Last Admin: 08/30/18 11:29 Dose: Not Given Insulin Detemir (Levemir Vial) 15 units SQ AM [facility] Last Admin: 08/30/18 06:08 Dose: Not Given Midodrine (Proamatine -) 5 mg PO TID-MID [facility] Last Admin: 08/30/18 14:38 Dose: Not Given Multivit/Ca Carb/B Cmplx/FA/Prenat (Nephro-Mahi -) 1 tablet PO DAILY [facility] Last Admin: 08/30/18 09:32 Dose: Not Given Sertraline HCl (Zoloft -) 25 mg PO DAILY [facility] Last Admin: 08/30/18 09:33 Dose: Not Given Sevelamer Carbonate (Renvela -) 2,400 mg PO CM [facility] Last Admin: 08/30/18 11:30 Dose: Not Given - Objective Vital Signs: Vital Signs Temperature 100.0 F H 08/30/18 15:05 Pulse Rate 96 H 08/30/18 15:05 Respiratory Rate 20 08/30/18 09:00 Blood Pressure 100/49 L 08/30/18 15:05 O2 Sat by Pulse Oximetry (%) 98 08/29/18 22:00 Constitutional: Yes: Calm Cardiovascular: Yes: Regular Rate and Rhythm, S1, S2 Respiratory: Yes: CTA Bilaterally Gastrointestinal: Yes: Normal Bowel Sounds, Soft Wound/Incision: Yes: Other (right foot wrapped) Neurological: Yes: Alert, Oriented Labs: CBC, BMP 08/29/18 08:07 08/29/18 08:07 INR, PTT INR 1.74 (0.83-1.09) H 08/30/18 07:45 Problem List - Problems (1) Gangrene Assessment/Plan: CTA - tibial disease in right leg angiogram to be done today heparin drip on hold stop couamdin iv abx Code(s): I96 - GANGRENE, NOT ELSEWHERE CLASSIFIED (2) Atrial fibrillation Assessment/Plan: hold coumadin start heparin once drip < 2.0- started today and stopped ini afternoon hold toprol given low BP Code(s): I48.91 - UNSPECIFIED ATRIAL FIBRILLATION Qualifiers: Atrial fibrillation type: chronic Qualified Code(s): I48.2 - Chronic atrial fibrillation (3) ESRD (end stage renal disease) on dialysis Assessment/Plan: HD tmw per renal Code(s): N18.6 - END STAGE RENAL DISEASE; Z99.2 - DEPENDENCE ON RENAL DIALYSIS (4) Diabetes 1.5, managed as type 2 Assessment/Plan: on insulin Code(s): E13.9 - OTHER SPECIFIED DIABETES MELLITUS WITHOUT COMPLICATIONS
[2018-08-30] MEDS ORDERED: HEPARIN NA (PORCINE) 5,000 UNITS/ML 1ML VIAL ONE (15:37)
[2018-08-30] MEDS ORDERED: MIDAZOLAM HCL 2 MG/2 ML SINGLE DOSE VIAL ONE (15:37)
[2018-08-30] MEDS ORDERED: ceFAZolin SODIUM 1 GM VIAL IVPB ONE (16:15)
[2018-08-30] MEDS ORDERED: LIDOCAINE HCL 1%, 10 MG/ML (20ML VIAL) INF ONE (16:31)
[2018-08-30] MEDS ORDERED: ceFAZolin SODIUM 1 GM VIAL ONE (16:32)
[2018-08-30] MEDS ORDERED: SODIUM CHLORIDE 0.9% P/F 10 ML VIAL IJ ONE (16:32)
--- NOTE | 2018-08-30 16:46 | OP ---
Operative Note - Note: Operative Date: 08/30/18 Pre-Operative Diagnosis: right foot gangrene Operation: Aortogram, RLE angiogram Post-Operative Diagnosis: Same as Pre-op Surgeon: Narciso Alarcon Anesthesia: Fractional Estimated Blood Loss (mls): 10 Operative Report Dictated: Yes
[2018-08-30] MEDS ORDERED: ACETAMINOPHEN 1000 MG/100 ML VIAL (NON FORMULARY) IVPB ONE (17:07)
[2018-08-30] MEDS ORDERED: HEPARIN INFUSION - 25,000 UNITS/500 ML INFUS.BAG IV SCH (17:09)
[2018-08-30] MEDS ORDERED: HEPARIN NA (PORCINE) 5,000 UNITS/ML 1ML VIAL IVPUSH PRN ×8 (17:11→23:11)
[2018-08-30] MEDS ORDERED: HEPARIN SOD,PORK IN 0.45% NACL 25,000 UNITS/500 ML INFUS.BAG IVPB SCH (17:15)
--- NOTE | 2018-08-30 17:56 | OP ---
DATE OF OPERATION: 08/30/2018 PREOPERATIVE DIAGNOSIS: Right foot gangrene. POSTOPERATIVE DIAGNOSIS: Right foot gangrene. PROCEDURE: Aortogram, right lower extremity angiogram. SURGEON: Narciso Smyth M.D. ANESTHESIA: Fractional. BLOOD LOSS: 10 mL. INDICATION: The patient is a 77-year-old female has right foot gangrene. It was decided that she would need an angiogram. She was consented by cardiology and went to dialysis yesterday, and decided to operate on her not on a dialysis day. Patient was consented for the procedure understanding all risks, benefits, and alternatives and taken to the operating room. DESCRIPTION OF PROCEDURE: Once in the operating room, she was laid on the operating table in a supine manner, and the area of the right and left groin are prepped and draped in a sterile surgical manner. We then went ahead and injected 10 mL of lidocaine 1% over the left common femoral artery. We then went ahead and placed a Micropuncture needle and cannulated the left common femoral artery. A Micropuncture wire was inserted, and a micropuncture sheath was inserted, and a traditional 5-Icelandic sheath was inserted. A 0.035 floppy guidewire was inserted into the aorta followed by an Omniflush catheter. We then shot an aortogram by hand injection, showing that the aorta and the iliac arteries were without any disease. We then placed our 0.035 floppy guidewire up and over to the right common femoral artery and Omniflush catheter followed. We then shot an angiogram of the right lower extremity showing that the common femoral artery, the profunda, the SFA was all patent. The popliteal artery is patent. The patient has 3 vessels at the trifurcation. Patient has goes all the way into the foot. Patient has a peroneal that goes into the foot. PT is at the ankle level. At this point, there was bypass disease, there was no disease to angioplasty. We decided no intervention was needed. 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 At this point we brought our catheter up and over . The sheath was removed, pressure was held over the left groin for 5 minutes, after which there was no more bleeding. Areas were then dried and Dermabond was placed. Patient tolerated the procedure without complications. Patient was transferred to PACU in stable condition. NARCISO SMYTH DO [id number]
[2018-08-30] MEDS ORDERED: PT OWN MED DRAWER 7, Y5N ONE ×2 (18:33→21:06)
--- NOTE | 2018-08-30 20:13 | PN ---
Progress Note, Physician Chief Complaint: resting comfortable sp angiogram procedure History of Present Illness: dm,htn,afib,esrd,gangrene right foot,sp angiogram rt leg pad - Current Medication List Current Medications: Active Medications Albumin Human (Albumin Human 25%) 12.5 gm IVPB Q30M [facility] Stop: 08/31/18 07:31 Heparin Sodium (Porcine) (Heparin -) 1,000 unit IVPUSH PRN PRN PRN Reason: Heparin Heparin Sodium (Porcine) (Heparin -) 5,000 unit IVPUSH PRN PRN PRN Reason: Heparin Heparin Sodium (Porcine) (Heparin -) 5,000 unit IVPUSH ONCE ONE Stop: 08/30/18 23:01 Sodium Chloride (Normal Saline -) 250 mls @ 3,000 mls/hr IV PRN PRN PRN Reason: Hypotension during Dialysis Stop: 08/31/18 13:14 Aztreonam 0.5 gm/ Dextrose 50 mls @ 100 mls/hr IVPB BID [facility]; Protocol Metronidazole (Flagyl 500mg Premixed Ivpb -) 500 mg in 100 mls @ 100 mls/hr IVPB Q8H-IV [facility] Last Admin: 08/30/18 17:40 Dose: 100 mls HEPARIN SOD,PORK IN 0.45% NACL (Heparin-1/2ns 25,000 Units/500) 25,000 units in 500 mls @ 20 mls/hr IVPB TITR [facility]; Protocol Insulin Aspart (Novolog Vial Sliding Scale -) 1 vial SQ ACHS [facility]; Protocol Insulin Detemir (Levemir Vial) 15 units SQ AM [facility] Midodrine (Proamatine -) 5 mg PO TID-MID [facility] Last Admin: 08/30/18 18:35 Dose: 5 mg Multivit/Ca Carb/B Cmplx/FA/Prenat (Nephro-Mahi -) 1 tablet PO DAILY [facility] Sertraline HCl (Zoloft -) 25 mg PO DAILY [facility] Sevelamer Carbonate (Renvela -) 2,400 mg PO CM [facility] Last Admin: 08/30/18 17:43 Dose: Not Given - Objective Vital Signs: Vital Signs Temperature 99.9 F H 08/30/18 18:23 Pulse Rate 94 H 08/30/18 18:23 Respiratory Rate 20 08/30/18 18:23 Blood Pressure 81/44 L 08/30/18 18:23 O2 Sat by Pulse Oximetry (%) 95 08/30/18 18:23 Constitutional: Yes: Calm Eyes: Yes: EOM Intact HENT: Yes: Normocephalic Neck: Yes: Trachea Midline Cardiovascular: Yes: Regular Rate and Rhythm Respiratory: Yes: CTA Bilaterally Gastrointestinal: Yes: Normal Bowel Sounds ...Rectal Exam: Yes: Deferred Musculoskeletal: Yes: Back Pain Extremities: Yes: Other Edema: No Peripheral Pulses WNL: No Peripheral Pulses: Left Femoral: 2+, Right Femoral: 2+ Integumentary: Yes: Onychomycosis, Venous Stasis Changes Wound/Incision: Yes: Dressing Dry and Intact Labs: CBC, BMP 08/29/18 08:07 08/29/18 08:07 INR, PTT INR 1.74 (0.83-1.09) H 08/30/18 07:45 Problem List - Problems (1) Diabetes 1.5, managed as type 2 Code(s): E13.9 - OTHER SPECIFIED DIABETES MELLITUS WITHOUT COMPLICATIONS (2) Cellulitis Code(s): L03.90 - CELLULITIS, UNSPECIFIED (3) Gangrene Code(s): I96 - GANGRENE, NOT ELSEWHERE CLASSIFIED (4) Penicillin allergy Code(s): Z88.0 - ALLERGY STATUS TO PENICILLIN (5) Acute electrocardiogram changes Code(s): R94.31 - ABNORMAL ELECTROCARDIOGRAM [ECG] [EKG] (6) Anemia Code(s): D64.9 - ANEMIA, UNSPECIFIED Qualifiers: Anemia type: other cause Other causes of anemia: chronic disease, kidney (7) Atrial fibrillation Code(s): I48.91 - UNSPECIFIED ATRIAL FIBRILLATION Qualifiers: Atrial fibrillation type: chronic Qualified Code(s): I48.2 - Chronic atrial fibrillation (8) Type 2 diabetes mellitus with diabetic peripheral angiopathy without gangrene Code(s): E11.51 - TYPE 2 DIABETES W DIABETIC PERIPHERAL ANGIOPATH W/O GANGRENE Assessment/Plan Current Active Problems Cellulitis (Acute) Diabetes 1.5, managed as type 2 (Acute) Gangrene (Acute) Penicillin allergy (Acute) Type 2 diabetes mellitus with diabetic peripheral angiopathy without gangrene ( Acute) Abnormal Lab Results 08/30/18 07:45 PT with INR 20.70 H INR 1.74 H PTT (Actin FS) 42.3 H Laboratory Results - last 24 hr 08/29/18 08/30/18 08/30/18 21:19 05:16 07:45 PT with INR Cancelled INR Cancelled PTT (Actin FS) POC Glucometer 165 89 08/30/18 08/30/18 08/30/18 07:45 11:27 17:34 PT with INR 20.70 H INR 1.74 H PTT (Actin FS) 42.3 H POC Glucometer 113 111 plan: monitor vs bgm qid novolog coverage Current Medications Generic Name Dose Route Start Last Admin Trade Name Freq PRN Reason Stop Dose Admin Albumin Human 12.5 gm 08/31/18 06:00 Albumin Human 25% IVPB 08/31/18 07:31 Q30M [facility] Heparin Sodium (Porcine) 1,000 unit 08/30/18 23:00 Heparin - IVPUSH PRN PRN Heparin Heparin Sodium (Porcine) 5,000 unit 08/30/18 23:00 Heparin - IVPUSH PRN PRN Heparin Heparin Sodium (Porcine) 5,000 unit 08/30/18 23:00 Heparin - IVPUSH 08/30/18 23:01 ONCE ONE Sodium Chloride 250 mls @ 3,000 mls/hr 08/30/18 17:23 Normal Saline - IV 08/31/18 13:14 PRN PRN Hypotension during Dialysis Aztreonam 0.5 gm/ Dextrose 50 mls @ 100 mls/hr 08/30/18 22:00 IVPB BID [facility] Protocol Metronidazole 500 mg in 100 mls @ 100 mls/hr 08/30/18 18:00 08/30/18 17:40 Flagyl 500mg Premixed Ivpb - IVPB 100 mls Q8H-IV [facility] Administration HEPARIN SOD,PORK IN 0.45% NACL 25,000 units in 500 mls @ 20 mls/hr 08/30/18 23 :00 Heparin-1/2ns 25,000 Units/500 IVPB TITR [facility] Protocol 1,000 UNITS/HR Insulin Aspart 1 vial 08/30/18 22:00 Novolog Vial Sliding Scale - SQ ACHS [facility] Protocol Insulin Detemir 15 units 08/31/18 07:00 Levemir Vial SQ AM [facility] Midodrine 5 mg 08/30/18 18:00 08/30/18 18:35 Proamatine - PO 5 mg TID-MID [facility] Administration Multivit/Ca Carb/B Cmplx/FA/Prenat 1 tablet 08/31/18 10:00 Nephro-Mahi - PO DAILY [facility] Sertraline HCl 25 mg 08/31/18 10:00 Zoloft - PO DAILY [facility] Sevelamer Carbonate 2,400 mg 08/30/18 17:30 08/30/18 17:43 Renvela - PO Not Given [facility]
[2018-08-30] MEDS ORDERED: HEPARIN NA (PORCINE) 5,000 UNITS/ML 1ML VIAL IVPUSH ONE (23:00)
[2018-08-30] MEDS: HEPARIN SOD,PORK IN 0.45% NACL 25,000 UNITS/500 ML INFUS.BAG IVPB SCH (23:18)
[2018-08-31] MEDS ORDERED: ALBUMIN HUMAN 25% 12.5 GM/50 ML VIAL IVPB SCH (06:00)
[2018-08-31 06:11] LABS: INR 1.99 (0.83-1.09); PROTHROMBIN TIME (PATIENT) 23.6 SEC (9.7-13.0)
[2018-08-31] MEDS: INSULIN SLIDING SCALE (NOVOLOG) 1 VIAL SQ SCH ×4 (06:18→21:22)
[2018-08-31] MEDS: INSULIN (LEVEMIR) 100 UNITS/ML UNITS SQ SCH (06:18)
[2018-08-31] MEDS: SEVELAMER CARBONATE 800 MG TAB (FP) PO SCH ×3 (08:15→17:19)
[2018-08-31] MEDS ORDERED: SODIUM CHLORIDE 250 ML IV PRN (10:00)
--- NOTE | 2018-08-31 10:03 | PN ---
Progress Note (short form) - Note Progress Note: fuv b/l feet. vss, tmax 97.9 +demarcation of gangarene, 3rd and 5th toe completely dry gangarene, +dusky right big toe, +drainage left big toe, +early gangarene, gangarene PVD Will watch demarcation of foot. Vascular clearance pending. Once vascular clearance for debridement will take to OR. Dry dressing change to right foot and left foot. Will follow.
[2018-08-31 10:20] LABS: ALBUMIN 2.4 g/dl (3.4-5.0); ALK PHOS 68 U/L (45-117); ANION GAP 14 MMOL/L (8-16); BILIRUBIN,TOTAL 0.5 mg/dL (0.2-1); BLOOD UREA NITROGEN 67 mg/dL (7-18); CALCIUM 8.1 mg/dL (8.5-10.1); CHLORIDE 97 mmol/L (98-107); CO2 20 mmol/L (21-32); GLUCOSE,RANDOM 190 mg/dL (74-106); MAGNESIUM 2.2 mg/dL (1.8-2.4); PHOSPHOROUS 4.4 mg/dL (2.5-4.9); SGOT/AST 17 U/L (15-37); SGPT/ALT 9 U/L (13-61); SODIUM 132 mmol/L (136-145)
[2018-08-31 10:24] LABS: CREATININE 9.7 mg/dL (0.55-1.3)
[2018-08-31] MEDS: ALBUMIN HUMAN 25% 12.5 GM/50 ML VIAL IVPB SCH ×3 (10:24→11:27)
--- NOTE | 2018-08-31 10:44 | PN ---
Progress Note, Physician Chief Complaint: AWAKE ALERT TRANSFERRING TO HD - Current Medication List Current Medications: Active Medications Albumin Human (Albumin Human 25%) 12.5 gm IVPB Q30M [facility] Stop: 08/31/18 11:31 Last Admin: 08/31/18 10:24 Dose: 12.5 gm Heparin Sodium (Porcine) (Heparin -) 1,000 unit IVPUSH PRN PRN PRN Reason: Heparin Heparin Sodium (Porcine) (Heparin -) 5,000 unit IVPUSH PRN PRN PRN Reason: Heparin Aztreonam 0.5 gm/ Dextrose 50 mls @ 100 mls/hr IVPB BID [facility]; Protocol Last Admin: 08/30/18 21:13 Dose: 100 mls/hr Metronidazole (Flagyl 500mg Premixed Ivpb -) 500 mg in 100 mls @ 100 mls/hr IVPB Q8H-IV [facility] Last Admin: 08/31/18 02:39 Dose: 100 mls/hr HEPARIN SOD,PORK IN 0.45% NACL (Heparin-1/2ns 25,000 Units/500) 25,000 units in 500 mls @ 20 mls/hr IVPB TITR [facility]; Protocol Last Titration: 08/31/18 07:30 Dose: 950 units/hr, 19 mls/hr Insulin Aspart (Novolog Vial Sliding Scale -) 1 vial SQ ACHS [facility]; Protocol Last Admin: 08/31/18 06:18 Dose: Not Given Insulin Detemir (Levemir Vial) 15 units SQ AM [facility] Last Admin: 08/31/18 06:18 Dose: Not Given Midodrine (Proamatine -) 5 mg PO TID-MID [facility] Last Admin: 08/30/18 18:35 Dose: 5 mg Multivit/Ca Carb/B Cmplx/FA/Prenat (Nephro-Mahi -) 1 tablet PO DAILY [facility] Sertraline HCl (Zoloft -) 25 mg PO DAILY [facility] Sevelamer Carbonate (Renvela -) 2,400 mg PO CM [facility] Last Admin: 08/31/18 08:15 Dose: Not Given - Objective Vital Signs: Vital Signs Temperature 98.2 F 08/31/18 08:35 Pulse Rate 82 08/31/18 09:40 Respiratory Rate 18 08/31/18 09:40 Blood Pressure 95/45 L 08/31/18 09:40 O2 Sat by Pulse Oximetry (%) 95 08/30/18 21:00 Constitutional: Yes: No Distress Eyes: Yes: WNL HENT: Yes: WNL Neck: Yes: WNL Cardiovascular: Yes: Pulse Irregular Respiratory: Yes: CTA Bilaterally, On Nasal O2 Gastrointestinal: Yes: Soft Genitourinary: Yes: Other Extremities: Yes: Amputation Integumentary: Yes: Pressure Ulcer Wound/Incision: Yes: Dressing Dry and Intact Neurological: Yes: Pre-Existing Deficit ...Motor Strength: LLE, RLE Labs: CBC, BMP 08/29/18 08:07 08/31/18 08:40 INR, PTT INR 1.99 (0.83-1.09) H 08/31/18 05:30 Problem List - Problems (1) Cellulitis Code(s): L03.90 - CELLULITIS, UNSPECIFIED (2) Diabetes 1.5, managed as type 2 Code(s): E13.9 - OTHER SPECIFIED DIABETES MELLITUS WITHOUT COMPLICATIONS (3) Gangrene Code(s): I96 - GANGRENE, NOT ELSEWHERE CLASSIFIED (4) Type 2 diabetes mellitus with diabetic peripheral angiopathy without gangrene Code(s): E11.51 - TYPE 2 DIABETES W DIABETIC PERIPHERAL ANGIOPATH W/O GANGRENE (5) ASHD (arteriosclerotic heart disease) Code(s): I25.10 - ATHSCL HEART DISEASE OF [place] CORONARY ARTERY W/O ANG PCTRS (6) Anemia Code(s): D64.9 - ANEMIA, UNSPECIFIED Qualifiers: Anemia type: other cause Other causes of anemia: chronic disease, kidney (7) Atrial fibrillation Code(s): I48.91 - UNSPECIFIED ATRIAL FIBRILLATION Qualifiers: Atrial fibrillation type: chronic Qualified Code(s): I48.2 - Chronic atrial fibrillation (8) ESRD (end stage renal disease) on dialysis Code(s): N18.6 - END STAGE RENAL DISEASE; Z99.2 - DEPENDENCE ON RENAL DIALYSIS (9) Peripheral artery disease Code(s): I73.9 - PERIPHERAL VASCULAR DISEASE, UNSPECIFIED Assessment/Plan VASCULAR SURGERY WORKUP IN PROGRESS ANGIOGRAM RLE COMPLETED PODIATRY EVAL FOR TOE GANGRENE AND INFECTIONS HD PER RENAL ANEMIA MONITOR H/H OOB TO CHAIR
[2018-08-31 11:41] LABS: HEMATOCRIT 30.8 % (32.4-45.2); HEMOGLOBIN 10.2 GM/dL (10.7-15.3); MCH 31.3 pg (25.7-33.7); MCHC 33.3 g/dl (32.0-36.0); MEAN PLT VOLUME 8.8 fl (7.5-11.1); PLATELET COUNT 188 K/MM3 (134-434); RBC 3.27 M/mm3 (3.60-5.2); RDW 14.9 % (11.6-15.6); WHITE BLOOD COUNT 6.1 K/mm3 (4.0-10.0)
[2018-08-31] MEDS ORDERED: PT OWN MED DRAWER 7, Y5N ONE ×2 (13:16→20:54)
[2018-08-31] MEDS: VITAMIN B COMP W-C 1 EA TABLET PO SCH (13:22)
[2018-08-31] MEDS: SERTRALINE HCL 25 MG TABLET (FP) PO SCH (13:22)
[2018-08-31] MEDS: MIDODRINE HCL 5 MG TABLET PO SCH ×3 (13:23→17:20)
[2018-08-31] MEDS: AZTREONAM 0.5 GM in DEXTROSE 5%-WATER - 50 ML IVPB SCH ×2 (13:25→21:19)
--- NOTE | 2018-08-31 15:27 | PN ---
Progress Note (short form) - Note Progress Note: ESRD on HD, DM, Afib on Coumadin, CHF, Hypertension, HLD 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 #Gangrene of Foot r/o vascular insufficiency #ESRD on HD #DM #CKD related Anemia #Chronic Hypotension #Afib on Coumadin Current Medications Heparin Sodium (Porcine) (Heparin -) 1,000 unit IVPUSH PRN PRN PRN Reason: Heparin Heparin Sodium (Porcine) (Heparin -) 5,000 unit IVPUSH PRN PRN PRN Reason: Heparin Aztreonam 0.5 gm/ Dextrose 50 mls @ 100 mls/hr IVPB BID [facility]; Protocol Last Admin: 08/31/18 13:25 Dose: 100 mls/hr Metronidazole (Flagyl 500mg Premixed Ivpb -) 500 mg in 100 mls @ 100 mls/hr IVPB Q8H-IV [facility] Last Admin: 08/31/18 13:14 Dose: 100 mls/hr HEPARIN SOD,PORK IN 0.45% NACL (Heparin-1/2ns 25,000 Units/500) 25,000 units in 500 mls @ 20 mls/hr IVPB TITR [facility]; Protocol Last Titration: 08/31/18 07:30 Dose: 950 units/hr, 19 mls/hr Insulin Aspart (Novolog Vial Sliding Scale -) 1 vial SQ ACHS [facility]; Protocol Last Admin: 08/31/18 12:00 Dose: Not Given Insulin Detemir (Levemir Vial) 15 units SQ AM [facility] Last Admin: 08/31/18 06:18 Dose: Not Given Midodrine (Proamatine -) 5 mg PO TID-MID [facility] Last Admin: 08/31/18 14:33 Dose: Not Given Multivit/Ca Carb/B Cmplx/FA/Prenat (Nephro-Mahi -) 1 tablet PO DAILY [facility] Last Admin: 08/31/18 13:22 Dose: 1 tablet Sertraline HCl (Zoloft -) 25 mg PO DAILY [facility] Last Admin: 08/31/18 13:22 Dose: 25 mg Sevelamer Carbonate (Renvela -) 2,400 mg PO CM [facility] Last Admin: 08/31/18 13:27 Dose: 2,400 mg Last Vital Signs Temp Pulse Resp BP Pulse Ox 97.9 F 97 H 18 91/49 L 95 08/31/18 14:12 08/31/18 14:12 08/31/18 13:02 08/31/18 14:12 08/30/18 21:00 CBC, BMP 08/31/18 11:15 08/31/18 08:40 will defer dialysis until tomorrow morning given pt to have angiogram late this afternoon no evidence of volume overload or hyperkalemia Vascular follow up Abx as per ID Renal diet
[2018-08-31] MEDS: HEPARIN SOD,PORK IN 0.45% NACL 25,000 UNITS/500 ML INFUS.BAG IVPB SCH (17:00)
[2018-09-01] MEDS: INSULIN SLIDING SCALE (NOVOLOG) 1 VIAL SQ SCH ×4 (06:12→22:15)
[2018-09-01] MEDS: INSULIN (LEVEMIR) 100 UNITS/ML UNITS SQ SCH (06:15)
[2018-09-01] MEDS: SEVELAMER CARBONATE 800 MG TAB (FP) PO SCH ×3 (07:40→16:58)
[2018-09-01 08:28] LABS: HEMATOCRIT 28.6 % (32.4-45.2); HEMOGLOBIN 9.3 GM/dL (10.7-15.3); MCH 30.9 pg (25.7-33.7); MCHC 32.4 g/dl (32.0-36.0); MEAN CELL VOLUME 95.4 fl (80-96); MEAN PLT VOLUME 9.1 fl (7.5-11.1); PLATELET COUNT 173 K/MM3 (134-434); WHITE BLOOD COUNT 4.8 K/mm3 (4.0-10.0)
[2018-09-01 08:52] LABS: INR 1.72 (0.83-1.09); PROTHROMBIN TIME (PATIENT) 20.4 SEC (9.7-13.0)
[2018-09-01] MEDS ORDERED: PT OWN MED DRAWER 7, Y5N ONE ×5 (09:06→22:05)
[2018-09-01] MEDS: SERTRALINE HCL 25 MG TABLET (FP) PO SCH (09:11)
[2018-09-01] MEDS: VITAMIN B COMP W-C 1 EA TABLET PO SCH (09:11)
[2018-09-01] MEDS: MIDODRINE HCL 5 MG TABLET PO SCH ×3 (09:12→19:08)
[2018-09-01] MEDS: AZTREONAM 0.5 GM in DEXTROSE 5%-WATER - 50 ML IVPB SCH ×2 (10:00→22:15)
--- NOTE | 2018-09-01 11:55 | PN ---
Progress Note, Physician Chief Complaint: AWAKE ALERT EATING LUNCH DENIES ANY PROBLEMS 'I FEEL GOOD" - Current Medication List Current Medications: Active Medications Heparin Sodium (Porcine) (Heparin -) 1,000 unit IVPUSH PRN PRN PRN Reason: Heparin Heparin Sodium (Porcine) (Heparin -) 5,000 unit IVPUSH PRN PRN PRN Reason: Heparin Aztreonam 0.5 gm/ Dextrose 50 mls @ 100 mls/hr IVPB BID [facility]; Protocol Last Admin: 09/01/18 10:00 Dose: 100 mls/hr Metronidazole (Flagyl 500mg Premixed Ivpb -) 500 mg in 100 mls @ 100 mls/hr IVPB Q8H-IV [facility] Last Admin: 09/01/18 09:08 Dose: 100 mls/hr HEPARIN SOD,PORK IN 0.45% NACL (Heparin-1/2ns 25,000 Units/500) 25,000 units in 500 mls @ 20 mls/hr IVPB TITR [facility]; Protocol Last Admin: 08/31/18 17:00 Dose: 950 units/hr, 19 mls/hr Insulin Aspart (Novolog Vial Sliding Scale -) 1 vial SQ ACHS [facility]; Protocol Last Admin: 09/01/18 10:38 Dose: 5 units Insulin Detemir (Levemir Vial) 15 units SQ AM [facility] Last Admin: 09/01/18 06:15 Dose: 15 units Midodrine (Proamatine -) 5 mg PO TID-MID [facility] Last Admin: 09/01/18 09:12 Dose: 5 mg Multivit/Ca Carb/B Cmplx/FA/Prenat (Nephro-Mahi -) 1 tablet PO DAILY [facility] Last Admin: 09/01/18 09:11 Dose: 1 tablet Sertraline HCl (Zoloft -) 25 mg PO DAILY [facility] Last Admin: 09/01/18 09:11 Dose: 25 mg Sevelamer Carbonate (Renvela -) 2,400 mg PO CM [facility] Last Admin: 09/01/18 07:40 Dose: 2,400 mg - Objective Vital Signs: Vital Signs Temperature 99.5 F 09/01/18 05:41 Pulse Rate 76 09/01/18 05:41 Respiratory Rate 17 09/01/18 05:41 Blood Pressure 96/41 L 09/01/18 05:41 O2 Sat by Pulse Oximetry (%) 96 08/31/18 21:00 Constitutional: Yes: No Distress Cardiovascular: Yes: Pulse Irregular Respiratory: Yes: CTA Bilaterally, On Nasal O2 Gastrointestinal: Yes: WNL Genitourinary: Yes: Other Musculoskeletal: Yes: Muscle Weakness Extremities: Yes: Deformity Wound/Incision: Yes: Dressing Removed Neurological: Yes: Pre-Existing Deficit Labs: CBC, BMP 09/01/18 06:00 08/31/18 08:40 INR, PTT INR 1.72 (0.83-1.09) H 09/01/18 06:00 Problem List - Problems (1) Cellulitis Code(s): L03.90 - CELLULITIS, UNSPECIFIED (2) Diabetes 1.5, managed as type 2 Code(s): E13.9 - OTHER SPECIFIED DIABETES MELLITUS WITHOUT COMPLICATIONS (3) Gangrene Code(s): I96 - GANGRENE, NOT ELSEWHERE CLASSIFIED (4) ASHD (arteriosclerotic heart disease) Code(s): I25.10 - ATHSCL HEART DISEASE OF [place] CORONARY ARTERY W/O ANG PCTRS (5) Anemia Code(s): D64.9 - ANEMIA, UNSPECIFIED Qualifiers: Anemia type: other cause Other causes of anemia: chronic disease, kidney (6) Atrial fibrillation Code(s): I48.91 - UNSPECIFIED ATRIAL FIBRILLATION Qualifiers: Atrial fibrillation type: chronic Qualified Code(s): I48.2 - Chronic atrial fibrillation (7) ESRD (end stage renal disease) on dialysis Code(s): N18.6 - END STAGE RENAL DISEASE; Z99.2 - DEPENDENCE ON RENAL DIALYSIS (8) Peripheral artery disease Code(s): I73.9 - PERIPHERAL VASCULAR DISEASE, UNSPECIFIED Assessment/Plan VASCULAR SURGERY WORKUP IN PROGRESS ANGIOGRAM RLE COMPLETED PODIATRY EVAL FOR TOE GANGRENE AND INFECTIONS HD PER RENAL ANEMIA MONITOR H/H OOB TO CHAIR PODIATRY FOR DEBRIDEMENT OF GANGRENOUS TOE
[2018-09-01] MEDS ORDERED: VANCOMYCIN 1 GM PREMIX - 1 GM/200 ML BAG IVPB ONE (14:18)
--- NOTE | 2018-09-01 14:21 | PN ---
Progress Note (short form) - Note Progress Note: no complaints Vital Signs Period Temp Pulse Resp BP Sys/Prince Pulse Ox Last 24 Hr 99.5 F-99.7 F 74-76 17-20 90-96/41-47 96-96 cor-rrr lungs clear abd soft,nt ext left foot unchange- gangrenous toes, right foot big toe swollen/ malodorous CBC, BMP 09/01/18 06:00 08/31/18 08:40 Microbiology 08/20/18 21:45 Blood - Peripheral Venous Blood Culture - Final NO GROWTH AFTER 5 DAYS INCUBATION 08/20/18 21:30 Blood - Peripheral Venous Blood Culture - Final NO GROWTH AFTER 5 DAYS INCUBATION Active Medications Heparin Sodium (Porcine) (Heparin -) 1,000 unit IVPUSH PRN PRN PRN Reason: Heparin Heparin Sodium (Porcine) (Heparin -) 5,000 unit IVPUSH PRN PRN PRN Reason: Heparin Aztreonam 0.5 gm/ Dextrose 50 mls @ 100 mls/hr IVPB BID [facility]; Protocol Last Admin: 09/01/18 10:00 Dose: 100 mls/hr Metronidazole (Flagyl 500mg Premixed Ivpb -) 500 mg in 100 mls @ 100 mls/hr IVPB Q8H-IV [facility] Last Admin: 09/01/18 09:08 Dose: 100 mls/hr HEPARIN SOD,PORK IN 0.45% NACL (Heparin-1/2ns 25,000 Units/500) 25,000 units in 500 mls @ 20 mls/hr IVPB TITR [facility]; Protocol Last Admin: 08/31/18 17:00 Dose: 950 units/hr, 19 mls/hr Vancomycin HCl (Vancomycin 1 Gm Premix -) 1 gm in 200 mls @ 133.333 mls/hr IVPB ONCE ONE; Protocol Stop: 09/01/18 15:47 Insulin Aspart (Novolog Vial Sliding Scale -) 1 vial SQ ACHS [facility]; Protocol Last Admin: 09/01/18 10:38 Dose: 5 units Insulin Detemir (Levemir Vial) 15 units SQ AM [facility] Last Admin: 09/01/18 06:15 Dose: 15 units Midodrine (Proamatine -) 5 mg PO TID-MID [facility] Last Admin: 09/01/18 13:51 Dose: 5 mg Multivit/Ca Carb/B Cmplx/FA/Prenat (Nephro-Mahi -) 1 tablet PO DAILY [facility] Last Admin: 09/01/18 09:11 Dose: 1 tablet Sertraline HCl (Zoloft -) 25 mg PO DAILY [facility] Last Admin: 09/01/18 09:11 Dose: 25 mg Sevelamer Carbonate (Renvela -) 2,400 mg PO CM [facility] Last Admin: 09/01/18 11:55 Dose: 2,400 mg a/p multiple toes with dry gangrene with surrounding cellulitis no fever penicillin allergy- mouth swells esrd for 15 years DM 2003 afib on coumadin vascular surgery evaluation in progress penicillin allergy vanco by level-check level in am azactam/flagyl ?surgery Problem List - Problems (1) Gangrene Code(s): I96 - GANGRENE, NOT ELSEWHERE CLASSIFIED (2) Cellulitis Code(s): L03.90 - CELLULITIS, UNSPECIFIED (3) ESRD (end stage renal disease) on dialysis Code(s): N18.6 - END STAGE RENAL DISEASE; Z99.2 - DEPENDENCE ON RENAL DIALYSIS (4) Diabetes Code(s): E11.9 - TYPE 2 DIABETES MELLITUS WITHOUT COMPLICATIONS (5) Diabetes mellitus, insulin dependent (IDDM), uncontrolled Code(s): E10.65 - TYPE 1 DIABETES MELLITUS WITH HYPERGLYCEMIA (6) Penicillin allergy Code(s): Z88.0 - ALLERGY STATUS TO PENICILLIN
[2018-09-01] MEDS: HEPARIN SOD,PORK IN 0.45% NACL 25,000 UNITS/500 ML INFUS.BAG IVPB SCH (16:37)
--- NOTE | 2018-09-01 19:42 | PN ---
Progress Note (short form) - Note Progress Note: ESRD on HD, DM, Afib on Coumadin, CHF, Hypertension, HLD 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 Gangrene of Foot r/o vascular insufficiency ESRD on HD DM CKD related Anemia Chronic Hypotension Afib on Coumadin Current Medications Heparin Sodium (Porcine) (Heparin -) 1,000 unit IVPUSH PRN PRN PRN Reason: Heparin Heparin Sodium (Porcine) (Heparin -) 5,000 unit IVPUSH PRN PRN PRN Reason: Heparin Aztreonam 0.5 gm/ Dextrose 50 mls @ 100 mls/hr IVPB BID [facility]; Protocol Last Admin: 09/01/18 10:00 Dose: 100 mls/hr Metronidazole (Flagyl 500mg Premixed Ivpb -) 500 mg in 100 mls @ 100 mls/hr IVPB Q8H-IV [facility] Last Admin: 09/01/18 17:35 Dose: 100 mls/hr HEPARIN SOD,PORK IN 0.45% NACL (Heparin-1/2ns 25,000 Units/500) 25,000 units in 500 mls @ 20 mls/hr IVPB TITR [facility]; Protocol Last Admin: 09/01/18 16:37 Dose: 950 units/hr, 19 mls/hr Insulin Aspart (Novolog Vial Sliding Scale -) 1 vial SQ ACHS [facility]; Protocol Last Admin: 09/01/18 16:17 Dose: Not Given Insulin Detemir (Levemir Vial) 15 units SQ AM [facility] Last Admin: 09/01/18 06:15 Dose: 15 units Midodrine (Proamatine -) 5 mg PO TID-MID [facility] Last Admin: 09/01/18 19:08 Dose: 5 mg Multivit/Ca Carb/B Cmplx/FA/Prenat (Nephro-Mahi -) 1 tablet PO DAILY [facility] Last Admin: 09/01/18 09:11 Dose: 1 tablet Sertraline HCl (Zoloft -) 25 mg PO DAILY [facility] Last Admin: 09/01/18 09:11 Dose: 25 mg Sevelamer Carbonate (Renvela -) 2,400 mg PO CM [facility] Last Admin: 09/01/18 16:58 Dose: 2,400 mg Last Vital Signs Temp Pulse Resp BP Pulse Ox 97.8 F 85 18 92/45 L 96 09/01/18 09:00 09/01/18 09:00 09/01/18 09:00 09/01/18 09:00 09/01/18 09:00 Lungs clear Heart reg Abd soft nontender Ext no edema CBC, BMP 08/31/18 11:15 08/31/18 08:40 Plan- HD next week
[2018-09-01] MEDS ORDERED: SODIUM CHLORIDE 250 ML IV PRN (19:46)
[2018-09-02] MEDS: INSULIN SLIDING SCALE (NOVOLOG) 1 VIAL SQ SCH ×4 (06:43→22:13)
[2018-09-02] MEDS: INSULIN (LEVEMIR) 100 UNITS/ML UNITS SQ SCH (06:45)
[2018-09-02 07:21] LABS: HEMATOCRIT 29.2 % (32.4-45.2); HEMOGLOBIN 9.4 GM/dL (10.7-15.3); MCH 30.3 pg (25.7-33.7); MCHC 32.2 g/dl (32.0-36.0); PLATELET COUNT 171 K/MM3 (134-434); RBC 3.11 M/mm3 (3.60-5.2); WHITE BLOOD COUNT 5.4 K/mm3 (4.0-10.0)
[2018-09-02] MEDS: SEVELAMER CARBONATE 800 MG TAB (FP) PO SCH ×3 (08:21→18:09)
[2018-09-02] MEDS: HEPARIN SOD,PORK IN 0.45% NACL 25,000 UNITS/500 ML INFUS.BAG IVPB SCH ×2 (08:48→22:15)
[2018-09-02] MEDS ORDERED: SODIUM CHLORIDE 250 ML IV PRN (11:39)
--- NOTE | 2018-09-02 11:39 | PN ---
Progress Note (short form) - Note Progress Note: Renal follow up for ESRD on HD Pt seen and examined during dialysis BP low but pt is asymptomatic UF goal 3L access with good flow no sob, cp, abd pain reports 2 loose BM last night Vital Signs Temperature 99 F 09/02/18 09:40 Pulse Rate 81 09/02/18 11:00 Respiratory Rate 18 09/02/18 11:00 Blood Pressure 84/49 L 09/02/18 11:00 O2 Sat by Pulse Oximetry (%) 96 09/01/18 21:00 Intake & Output 08/30/18 08/31/18 09/01/18 09/02/18 23:59 23:59 23:59 23:59 Intake Total 714 1738 2046 Output Total 0 Balance 714 1738 2046 Weight 108.681 kg 108.862 kg 108.947 kg 108.976 kg NAD awake and alert irregular, no M/R CTA soft, obese, NT/ND CBC, BMP 09/02/18 06:00 08/31/18 08:40 Current Medications Heparin Sodium (Porcine) (Heparin -) 1,000 unit IVPUSH PRN PRN PRN Reason: Heparin Heparin Sodium (Porcine) (Heparin -) 5,000 unit IVPUSH PRN PRN PRN Reason: Heparin Aztreonam 0.5 gm/ Dextrose 50 mls @ 100 mls/hr IVPB BID [facility]; Protocol Last Admin: 09/01/18 22:15 Dose: 100 mls/hr Metronidazole (Flagyl 500mg Premixed Ivpb -) 500 mg in 100 mls @ 100 mls/hr IVPB Q8H-IV [facility] Last Admin: 09/02/18 02:30 Dose: 100 mls/hr HEPARIN SOD,PORK IN 0.45% NACL (Heparin-1/2ns 25,000 Units/500) 25,000 units in 500 mls @ 20 mls/hr IVPB TITR [facility]; Protocol Last Admin: 09/02/18 08:48 Dose: 950 units/hr, 19 mls/hr Sodium Chloride (Normal Saline -) 250 mls @ 3,000 mls/hr IV PRN PRN PRN Reason: Hypotension during Dialysis Stop: 09/02/18 19:46 Insulin Aspart (Novolog Vial Sliding Scale -) 1 vial SQ ACHS [facility]; Protocol Last Admin: 09/02/18 06:43 Dose: Not Given Insulin Detemir (Levemir Vial) 15 units SQ AM [facility] Last Admin: 09/02/18 06:45 Dose: 15 units Midodrine (Proamatine -) 5 mg PO TID-MID [facility] Last Admin: 09/01/18 19:08 Dose: 5 mg Multivit/Ca Carb/B Cmplx/FA/Prenat (Nephro-Mahi -) 1 tablet PO DAILY [facility] Last Admin: 09/01/18 09:11 Dose: 1 tablet Sertraline HCl (Zoloft -) 25 mg PO DAILY [facility] Last Admin: 09/01/18 09:11 Dose: 25 mg Sevelamer Carbonate (Renvela -) 2,400 mg PO CM [facility] Last Admin: 09/02/18 08:21 Dose: 2,400 mg 77 year old woman with hx of ESRD on HD, DM, Afib on Coumadin, CHF, Hypertension, HLD who presented with 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 #Gangrene of Foot r/o vascular insufficiency #ESRD on HD #DM #CKD related Anemia #Chronic Hypotension #Afib on Coumadin currently getting dialysis UF as tolerated check stool for C-diff if loose stools continue continue BRAD with HD Vascular/ID/Podiatry follow up Thank you Alon Page DO
--- NOTE | 2018-09-02 11:47 | PN ---
Progress Note (short form) - Note Progress Note: fuv b/l feet. Patient seen in Dialysis. vss, tmax 98.7 +demarcation of gangarene, 3rd and 5th toe completely dry gangarene, +dusky right big toe, +drainage left big toe, +early gangarene, gangarene PVD Discussed with patient and daughter by phone. Patient cleared for debridement of right foot by vascular. Patient and daughter verbally consented to debridement of bone and soft tissue with amputation of toes and an attempt to save great toe for ambulation all right foot. Also, discussed transmetatarsal amputation if necessary or any portion thereof right foot. Dry dressing change to right foot and left foot. Patient scheduled for Sunday at 8am. Please maximize for surgery. Will follow. INR tomorrow.
[2018-09-02] MEDS ORDERED: EPOETIN ALFA 10,000 UNIT/1 ML VIAL IVPUSH ONE (12:30)
--- NOTE | 2018-09-02 12:48 | PN ---
Progress Note, Physician Chief Complaint: ESRD B/L pedal gangrene History of Present Illness: Previous notes and events reviewed awake and alert NAD denies complaints of chest pain and SOB patient evaluated in HD - Current Medication List Current Medications: Active Medications Heparin Sodium (Porcine) (Heparin -) 1,000 unit IVPUSH PRN PRN PRN Reason: Heparin Heparin Sodium (Porcine) (Heparin -) 5,000 unit IVPUSH PRN PRN PRN Reason: Heparin Aztreonam 0.5 gm/ Dextrose 50 mls @ 100 mls/hr IVPB BID [facility]; Protocol Last Admin: 09/01/18 22:15 Dose: 100 mls/hr Metronidazole (Flagyl 500mg Premixed Ivpb -) 500 mg in 100 mls @ 100 mls/hr IVPB Q8H-IV [facility] Last Admin: 09/02/18 02:30 Dose: 100 mls/hr HEPARIN SOD,[place] IN 0.45% NACL (Heparin-1/2ns 25,000 Units/500) 25,000 units in 500 mls @ 20 mls/hr IVPB TITR [facility]; Protocol Last Admin: 09/02/18 08:48 Dose: 950 units/hr, 19 mls/hr Sodium Chloride (Normal Saline -) 250 mls @ 3,000 mls/hr IV PRN PRN PRN Reason: Hypotension during Dialysis Stop: 09/03/18 11:39 Insulin Aspart (Novolog Vial Sliding Scale -) 1 vial SQ ACHS [facility]; Protocol Last Admin: 09/02/18 06:43 Dose: Not Given Insulin Detemir (Levemir Vial) 15 units SQ AM [facility] Last Admin: 09/02/18 06:45 Dose: 15 units Midodrine (Proamatine -) 5 mg PO TID-MID [facility] Last Admin: 09/01/18 19:08 Dose: 5 mg Multivit/Ca Carb/B Cmplx/FA/Prenat (Nephro-Mahi -) 1 tablet PO DAILY [facility] Last Admin: 09/01/18 09:11 Dose: 1 tablet Sertraline HCl (Zoloft -) 25 mg PO DAILY [facility] Last Admin: 09/01/18 09:11 Dose: 25 mg Sevelamer Carbonate (Renvela -) 2,400 mg PO CM [facility] Last Admin: 09/02/18 08:21 Dose: 2,400 mg - Objective Vital Signs: Vital Signs Temperature 99 F 09/02/18 09:40 Pulse Rate 87 09/02/18 12:15 Respiratory Rate 18 09/02/18 12:15 Blood Pressure 87/41 L 09/02/18 12:15 O2 Sat by Pulse Oximetry (%) 96 09/01/18 21:00 Constitutional: Yes: No Distress, Calm Eyes: Yes: Conjunctiva Clear HENT: Yes: Atraumatic Cardiovascular: Yes: Regular Rate and Rhythm Respiratory: Yes: Regular, CTA Bilaterally Gastrointestinal: Yes: Normal Bowel Sounds, Soft Musculoskeletal: Yes: Muscle Weakness Extremities: Yes: WNL Edema: No Wound/Incision: Yes: Dressing Dry and Intact (R foot) Neurological: Yes: Alert, Oriented Psychiatric: Yes: Alert, Oriented Labs: CBC, BMP 09/02/18 06:00 08/31/18 08:40 INR, PTT INR 1.72 (0.83-1.09) H 09/01/18 06:00 Problem List - Problems (1) Gangrene Assessment/Plan: -vascular on board -podiatry on board -cleared by cardiology for angioplasty -CT angio of aorta and B/L lower extremity performed and results reviewed -continue with azactam -B/L foot xray reviewed--recommend for more complete evaluation MRI or bone scan to r/o osteo -wbc 5.4 Code(s): I96 - GANGRENE, NOT ELSEWHERE CLASSIFIED (2) Atrial fibrillation Assessment/Plan: -hold coumadin 10mg -Heparin drip, monitor PTT daily -cardio consult for clearance -metoprolol daily for rate control Code(s): I48.91 - UNSPECIFIED ATRIAL FIBRILLATION Qualifiers: Atrial fibrillation type: chronic Qualified Code(s): I48.2 - Chronic atrial fibrillation (3) ESRD (end stage renal disease) on dialysis Assessment/Plan: -renal on board -continue dialysis MWF -renal diet -monitor BUN/Cr daily -BUN/Cr 67/9.7 -sevelamer Code(s): N18.6 - END STAGE RENAL DISEASE; Z99.2 - DEPENDENCE ON RENAL DIALYSIS (4) Hypotension Assessment/Plan: -cont midrodine TID Code(s): I95.9 - HYPOTENSION, UNSPECIFIED (5) Pancreatic cyst Assessment/Plan: -GI consult Code(s): K86.2 - CYST OF PANCREAS Assessment/Plan see problem list dvt ppx
--- NOTE | 2018-09-02 14:16 | PN ---
Progress Note (short form) - Note Progress Note: no complaints seen in HD awaiting surgery now Vital Signs Period Temp Pulse Resp BP Sys/Prince Pulse Ox Last 24 Hr 98 F-99.1 F 71-89 17-20 83-104/41-53 96 cor-rrr lungs clear abd soft,nt dressings intact- CBC, BMP 09/02/18 06:00 08/31/18 08:40 Microbiology 08/20/18 21:45 Blood - Peripheral Venous Blood Culture - Final NO GROWTH AFTER 5 DAYS INCUBATION 08/20/18 21:30 Blood - Peripheral Venous Blood Culture - Final NO GROWTH AFTER 5 DAYS INCUBATION vanco level 22 a/p multiple toes with dry gangrene with surrounding cellulitis no fever penicillin allergy- mouth swells esrd for 15 years DM 2003 afib on coumadin vascular surgery evaluation in progress-microvascular disease of the foot penicillin allergy vanco by level-check level in am azactam/flagyl awaiting surgery Problem List - Problems (1) Gangrene Code(s): I96 - GANGRENE, NOT ELSEWHERE CLASSIFIED (2) Cellulitis Code(s): L03.90 - CELLULITIS, UNSPECIFIED (3) ESRD (end stage renal disease) on dialysis Code(s): N18.6 - END STAGE RENAL DISEASE; Z99.2 - DEPENDENCE ON RENAL DIALYSIS (4) Diabetes Code(s): E11.9 - TYPE 2 DIABETES MELLITUS WITHOUT COMPLICATIONS (5) Diabetes mellitus, insulin dependent (IDDM), uncontrolled Code(s): E10.65 - TYPE 1 DIABETES MELLITUS WITH HYPERGLYCEMIA (6) Penicillin allergy Code(s): Z88.0 - ALLERGY STATUS TO PENICILLIN
[2018-09-02] MEDS: MIDODRINE HCL 5 MG TABLET PO SCH ×3 (14:35→17:54)
[2018-09-02] MEDS ORDERED: PT OWN MED DRAWER 7, Y5N ONE (14:42)
[2018-09-02] MEDS: VITAMIN B COMP W-C 1 EA TABLET PO SCH (14:49)
[2018-09-02] MEDS: AZTREONAM 0.5 GM in DEXTROSE 5%-WATER - 50 ML IVPB SCH ×2 (14:50→22:22)
[2018-09-02] MEDS: SERTRALINE HCL 25 MG TABLET (FP) PO SCH (14:50)
[2018-09-03] MEDS: HEPARIN SOD,PORK IN 0.45% NACL 25,000 UNITS/500 ML INFUS.BAG IVPB SCH (02:03)
[2018-09-03] MEDS: INSULIN (LEVEMIR) 100 UNITS/ML UNITS SQ SCH (06:26)
[2018-09-03] MEDS: INSULIN SLIDING SCALE (NOVOLOG) 1 VIAL SQ SCH ×4 (06:34→22:24)
[2018-09-03 07:01] LABS: HEMATOCRIT 29.8 % (32.4-45.2); HEMOGLOBIN 9.6 GM/dL (10.7-15.3); MCH 30.8 pg (25.7-33.7); MCHC 32.4 g/dl (32.0-36.0); MEAN PLT VOLUME 8.9 fl (7.5-11.1); PLATELET COUNT 163 K/MM3 (134-434); RBC 3.13 M/mm3 (3.60-5.2); RDW 15.1 % (11.6-15.6); WHITE BLOOD COUNT 5.5 K/mm3 (4.0-10.0)
--- NOTE | 2018-09-03 07:16 | PN ---
Progress Note (short form) - Note Progress Note: POD #4 s/p Aortogram with RLE angio secondary to right foot gangrene Podiarty note appreciated. Danette is taking patient to OR today for debridement of bone and soft tissue with amputation of toes and an attempt to save great toe. Possible TMA if necessary or any portion thereof right foot. No further Vascular intervention needed. Remaining wound care will be provided by Podiatry. Re-consult Vascular PRN. On behalf of Dr. Alarocn, thank you for the opportunity to participate in your patient's care. Problem List - Problems (1) Gangrene Code(s): I96 - GANGRENE, NOT ELSEWHERE CLASSIFIED (2) Atrial fibrillation Code(s): I48.91 - UNSPECIFIED ATRIAL FIBRILLATION Qualifiers: Atrial fibrillation type: chronic Qualified Code(s): I48.2 - Chronic atrial fibrillation (3) Diabetes Code(s): E11.9 - TYPE 2 DIABETES MELLITUS WITHOUT COMPLICATIONS (4) ESRD (end stage renal disease) on dialysis Code(s): N18.6 - END STAGE RENAL DISEASE; Z99.2 - DEPENDENCE ON RENAL DIALYSIS
[2018-09-03 07:57] LABS: ALBUMIN 2.3 g/dl (3.4-5.0); ALK PHOS 55 U/L (45-117); ANION GAP 9 MMOL/L (8-16); BILIRUBIN,TOTAL 0.4 mg/dL (0.2-1); BLOOD UREA NITROGEN 32 mg/dL (7-18); CALCIUM 8.3 mg/dL (8.5-10.1); CHLORIDE 103 mmol/L (98-107); CO2 27 mmol/L (21-32); CREATININE 6.1 mg/dL (0.55-1.3); GLUCOSE,RANDOM 120 mg/dL (74-106); POTASSIUM 3.8 mmol/L (3.5-5.1); SGOT/AST 28 U/L (15-37); SGPT/ALT 8 U/L (13-61); SODIUM 139 mmol/L (136-145); TOT PROT 5.8 g/dl (6.4-8.2)
--- NOTE | 2018-09-03 09:11 | CON.GI ---
Consult Consult Specialty:: GI Referred by:: BECKY Villalba Reason for Consultation:: Pancreatic cyst - History of Present Illness Chief Complaint: pancreatic cyst History of Present Illness: Patient is a 77 y/o female with past medical history of ESRD, Hypotension, DM, Afib, HLD. I was consulted to evaluate patient for pancreatic cysts. An Aorta with LE Runoff CTA performed shows scattered pancreatic cysts are seen the largest is in the head measuring 3.1cm, another on measuring 1.6cm cyst is seen in the uncinate process and 1.7cm in the body in addition to other smaller cysts , there is no pancreatic duct dilation. Patient denies abdominal pain, nausea, vomiting, diarrhea, abnormal weight loss. 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 No: CAD Gastrointestinal: Yes: Constipation Renal/: Yes: Renal Failure, Hemodialysis, Other (renal cysts see HPI) Endocrine: Yes: Diabetes Mellitus Additional Medical History: Right superficial breast mass which she noted for the last 2 weeks and has enlarged in size. Minimal drainage has been noted. - Past Surgical History Past Surgical History: Yes: Appendectomy, AV Fistula/Graft, Cholecystectomy, Hernia Repair - Alcohol/Substance Use Hx Alcohol Use: No History of Substance Use: reports: None - Smoking History Smoking history: Unknown if ever smoked Have you smoked in the past 12 months: No - Social History ADL: Independent History of Recent Travel: No Home Medications - Allergies Allergies/Adverse Reactions: Allergies Allergy/AdvReac Type Severity Reaction Status Date / Time Penicillins Allergy Swelling Verified 08/20/18 16:41 - Home Medications Home Medications: Ambulatory Orders Calcitriol 0.5 mcg PO DAILY 08/20/18 Folic Acid/Vit B Complex and C [Nayla-Mahi Tablet] 0.8 mg PO DAILY 08/20/18 Glimepiride [Amaryl -] 4 mg PO DAILY 08/20/18 Metoprolol Succinate [Toprol Xl -] 25 mg PO DAILY 08/20/18 Sertraline HCl [Zoloft -] 25 mg PO DAILY 08/20/18 Sevelamer Carbonate [Renvela] 2,400 mg PO CM 08/20/18 Sodium Bicarbonate 10 mg PO DAILY 08/20/18 Warfarin Na [Coumadin] 10 mg PO DAILY 08/20/18 Family Disease History - Family Disease History Family Disease History: Diabetes: Sister (), CA: Father (prostate Ca; ) Review of Systems - Review of Systems Constitutional: reports: No Symptoms Eyes: reports: No Symptoms HENT: reports: No Symptoms Neck: reports: No Symptoms Cardiovascular: reports: No Symptoms Respiratory: reports: No Symptoms Gastrointestinal: reports: No Symptoms Genitourinary: reports: No Symptoms Breasts: reports: No Symptoms Reported Musculoskeletal: reports: No Symptoms Integumentary: reports: No Symptoms Neurological: reports: No Symptoms Endocrine: reports: No Symptoms Hematology/Lymphatic: reports: No Symptoms Psychiatric: reports: No Symptoms Physical Exam-GI Vital Signs: Vital Signs Temperature 98.8 F 09/03/18 06:00 Pulse Rate 82 09/03/18 06:00 Respiratory Rate 18 09/03/18 06:00 Blood Pressure 121/48 L 09/03/18 06:00 O2 Sat by Pulse Oximetry (%) 96 09/01/18 21:00 Constitutional: Yes: No Distress, Calm Eyes: Yes: Conjunctiva Clear HENT: Yes: Atraumatic Cardiovascular: Yes: Regular Rate and Rhythm Respiratory: Yes: Regular, CTA Bilaterally Gastrointestinal Inspection: Yes: WNL. No: Ascites, Distention, Hernia, Scars, Other ...Auscultate: Yes: Normoactive Bowel Sounds. No: Hyperactive Bowel Sounds, Hypoactive Bowel Sounds, No Bowel Sounds, Other ...Palpate: Yes: Soft. No: Firm/Rigid, Guarding, Hepatomegaly, Mass, Pulsatile Mass, Splenomegaly, Tenderness, Tenderness, Epigastium, Tenderness, Rebound, Other ...Percussion: Yes: Tympanitic. No: Dullness, Fluid Wave, Other Neurological: Yes: Alert, Oriented Psychiatric: Yes: Alert, Oriented Labs: CBC, BMP 09/03/18 06:00 09/03/18 06:00 INR, PTT INR 1.72 (0.83-1.09) H 09/01/18 06:00 Problem List - Problems (1) Pancreatic cyst Assessment/Plan: R>MRI of abdomen >CA 19-9 >as outpatient to have EUS Code(s): K86.2 - CYST OF PANCREAS
[2018-09-03] MEDS ORDERED: PT OWN MED DRAWER 7, Y5N ONE ×2 (09:34→17:30)
[2018-09-03] MEDS: VITAMIN B COMP W-C 1 EA TABLET PO SCH (09:35)
[2018-09-03] MEDS: SERTRALINE HCL 25 MG TABLET (FP) PO SCH (09:35)
[2018-09-03] MEDS: MIDODRINE HCL 5 MG TABLET PO SCH ×3 (09:36→18:32)
[2018-09-03 10:41] LABS: INR 1.47 (0.83-1.09); PROTHROMBIN TIME (PATIENT) 17.4 SEC (9.7-13.0)
--- NOTE | 2018-09-03 10:50 | PN ---
Progress Note (short form) - Note Progress Note: fuv b/l feet. Patient seen in room vss, afebrile +demarcation of gangarene, 3rd and 5th toe completely dry gangarene, +dusky right big toe, +drainage left big toe, +early gangarene, INR 1.47 gangarene PVD Patient consented for debridement of bone and soft tissue, amputation of all toes possible, resection of metatarsal heads possible all of right foot and witnessed by nurse Zamora. NPO tonight. INR checked. Scheduled for 8am .
[2018-09-03] MEDS: AZTREONAM 0.5 GM in DEXTROSE 5%-WATER - 50 ML IVPB SCH ×2 (11:28→22:20)
[2018-09-03] MEDS: SEVELAMER CARBONATE 800 MG TAB (FP) PO SCH ×3 (11:30→18:32)
[2018-09-03] MEDS ORDERED: INSULIN (NOVOLOG) ASPART 100 UNITS/ML 10ML VIAL ONE (11:31)
--- NOTE | 2018-09-03 11:41 | PN ---
Progress Note, Physician Chief Complaint: ESRD B/L pedal gangrene History of Present Illness: On IV abx afebrile ID on board + leukocytosis POD #4 s/p Aortogram with RLE angio secondary to right foot gangrene Podiarty note appreciated. Danette is taking patient to OR tomorrow for debridement of bone and soft tissue with amputation of toes and an attempt to save great toe. Possible TMA if necessary or any portion thereof right foot. - Current Medication List Current Medications: Active Medications Heparin Sodium (Porcine) (Heparin -) 1,000 unit IVPUSH PRN PRN PRN Reason: Heparin Heparin Sodium (Porcine) (Heparin -) 5,000 unit IVPUSH PRN PRN PRN Reason: Heparin Aztreonam 0.5 gm/ Dextrose 50 mls @ 100 mls/hr IVPB BID [facility]; Protocol Last Admin: 09/03/18 11:28 Dose: 100 mls/hr Metronidazole (Flagyl 500mg Premixed Ivpb -) 500 mg in 100 mls @ 100 mls/hr IVPB Q8H-IV [facility] Last Admin: 09/03/18 09:35 Dose: 100 mls/hr HEPARIN SOD,PORK IN 0.45% NACL (Heparin-1/2ns 25,000 Units/500) 25,000 units in 500 mls @ 20 mls/hr IVPB TITR [facility]; Protocol Last Admin: 09/03/18 02:03 Dose: Not Given Insulin Aspart (Novolog Vial Sliding Scale -) 1 vial SQ ACHS [facility]; Protocol Last Admin: 09/03/18 11:33 Dose: 3 units Insulin Detemir (Levemir Vial) 15 units SQ AM [facility] Last Admin: 09/03/18 06:26 Dose: 15 units Midodrine (Proamatine -) 5 mg PO TID-MID [facility] Last Admin: 09/03/18 09:36 Dose: 5 mg Multivit/Ca Carb/B Cmplx/FA/Prenat (Nephro-Mahi -) 1 tablet PO DAILY [facility] Last Admin: 09/03/18 09:35 Dose: 1 tablet Sertraline HCl (Zoloft -) 25 mg PO DAILY [facility] Last Admin: 09/03/18 09:35 Dose: 25 mg Sevelamer Carbonate (Renvela -) 2,400 mg PO CM [facility] Last Admin: 09/03/18 11:30 Dose: 2,400 mg - Objective Vital Signs: Vital Signs Temperature 98.8 F 09/03/18 06:00 Pulse Rate 82 09/03/18 06:00 Respiratory Rate 18 09/03/18 06:00 Blood Pressure 121/48 L 09/03/18 06:00 O2 Sat by Pulse Oximetry (%) 96 09/01/18 21:00 Constitutional: Yes: Well Nourished, No Distress, Calm Cardiovascular: Yes: Regular Rate and Rhythm Respiratory: Yes: Regular, Rhonchi (diffuse) Gastrointestinal: Yes: Normal Bowel Sounds, Soft Genitourinary: Yes: Incontinence Musculoskeletal: Yes: Muscle Weakness Extremities: Yes: Other (RLE gangrene) Wound/Incision: Yes: Dressing Dry and Intact Neurological: Yes: Alert, Oriented Psychiatric: Yes: Alert, Oriented Labs: CBC, BMP 09/03/18 06:00 09/03/18 06:00 INR, PTT INR 1.47 (0.83-1.09) H 09/03/18 07:00 Problem List - Problems (1) Cellulitis Assessment/Plan: -IV abx -afebrile -Seen by ID -Blood cultures negative Code(s): L03.90 - CELLULITIS, UNSPECIFIED (2) Gangrene Assessment/Plan: -Seen by podiatry and Vascular surgery -Going for debridement in AM Code(s): I96 - GANGRENE, NOT ELSEWHERE CLASSIFIED (3) Anemia Assessment/Plan: -2/2 to CKD -monitor trend Code(s): D64.9 - ANEMIA, UNSPECIFIED Qualifiers: Anemia type: other cause Other causes of anemia: chronic disease, kidney (4) Diabetes 1.5, managed as type 2 Assessment/Plan: -BGM AC HS -Endocrinology on board -A1c at 6.1 -Levemir + Novolog sliding scale -diabetic renal diet Code(s): E13.9 - OTHER SPECIFIED DIABETES MELLITUS WITHOUT COMPLICATIONS (5) ESRD (end stage renal disease) on dialysis Assessment/Plan: -Nephrology on board -Dialysis as per Renal Code(s): N18.6 - END STAGE RENAL DISEASE; Z99.2 - DEPENDENCE ON RENAL DIALYSIS (6) Atrial fibrillation Assessment/Plan: -rate controlled -On heparin drip until after debridement Code(s): I48.91 - UNSPECIFIED ATRIAL FIBRILLATION Qualifiers: Atrial fibrillation type: chronic Qualified Code(s): I48.2 - Chronic atrial fibrillation Assessment/Plan see problem list Physical therapy No cardiac or medical contraindication for planned procedure. Pt is medically stable for OR with acceptable OR risks.
[2018-09-03] MEDS ORDERED: guaiFENesin/D-M SUGAR-FREE/ACLHOL-FREE 118 ML BOTTLE PO SCH (14:30)
[2018-09-03] MEDS: ALBUTEROL SO4 0.083% IH SOL 2.5 MG/3 ML VIAL.NEB. NEB SCH ×3 (16:00→21:00)
--- NOTE | 2018-09-03 17:04 | PN ---
Progress Note (short form) - Note Progress Note: no complaints Vital Signs Period Temp Pulse Resp BP Sys/Prince Pulse Ox Last 24 Hr 98.4 F-98.8 F 82-98 18-18 80-121/46-52 cor-rrr llungs decreased bs at bases abd soft,nt ext dressing right foot CBC, BMP 09/03/18 06:00 09/03/18 06:00 Microbiology 08/20/18 21:45 Blood - Peripheral Venous Blood Culture - Final NO GROWTH AFTER 5 DAYS INCUBATION 08/20/18 21:30 Blood - Peripheral Venous Blood Culture - Final NO GROWTH AFTER 5 DAYS INCUBATION Current Medications Acetylcysteine (Mucomyst 20 Oral / Inh Use Only*) 400 mg NEB BID [facility] Albuterol Sulfate (Ventolin 0.083% Nebulizer Soln -) 1 amp NEB RQID [facility] Guaifenesin (Diabetic Tussin Dm -) 10 ml PO Q6HPO [facility] Heparin Sodium (Porcine) (Heparin -) 1,000 unit IVPUSH PRN PRN PRN Reason: Heparin Heparin Sodium (Porcine) (Heparin -) 5,000 unit IVPUSH PRN PRN PRN Reason: Heparin Aztreonam 0.5 gm/ Dextrose 50 mls @ 100 mls/hr IVPB BID [facility]; Protocol Last Admin: 09/03/18 11:28 Dose: 100 mls/hr Metronidazole (Flagyl 500mg Premixed Ivpb -) 500 mg in 100 mls @ 100 mls/hr IVPB Q8H-IV [facility] Last Admin: 09/03/18 09:35 Dose: 100 mls/hr HEPARIN SOD,PORK IN 0.45% NACL (Heparin-1/2ns 25,000 Units/500) 25,000 units in 500 mls @ 20 mls/hr IVPB TITR [facility]; Protocol Last Admin: 09/03/18 02:03 Dose: Not Given Vancomycin HCl 1,000 mg/ (Dextrose) 250 mls @ 166.667 mls/hr IVPB ONCE ONE; Protocol Stop: 09/04/18 08:29 Insulin Aspart (Novolog Vial Sliding Scale -) 1 vial SQ ACHS [facility]; Protocol Last Admin: 09/03/18 11:33 Dose: 3 units Insulin Detemir (Levemir Vial) 15 units SQ AM [facility] Last Admin: 09/03/18 06:26 Dose: 15 units Midodrine (Proamatine -) 5 mg PO TID-MID [facility] Last Admin: 09/03/18 09:36 Dose: 5 mg Multivit/Ca Carb/B Cmplx/FA/Prenat (Nephro-Mahi -) 1 tablet PO DAILY [facility] Last Admin: 09/03/18 09:35 Dose: 1 tablet Sertraline HCl (Zoloft -) 25 mg PO DAILY [facility] Last Admin: 09/03/18 09:35 Dose: 25 mg Sevelamer Carbonate (Renvela -) 2,400 mg PO CM [facility] Last Admin: 09/03/18 11:30 Dose: 2,400 mg a/p multiple toes with dry gangrene with surrounding cellulitis no fever penicillin allergy- mouth swells esrd for 15 years DM 2003 afib on coumadin vascular surgery evaluation in progress-microvascular disease of the foot penicillin allergy redose vancomycin in am azactam/flagyl for surgery in am Problem List - Problems (1) Gangrene Code(s): I96 - GANGRENE, NOT ELSEWHERE CLASSIFIED (2) Cellulitis Code(s): L03.90 - CELLULITIS, UNSPECIFIED (3) ESRD (end stage renal disease) on dialysis Code(s): N18.6 - END STAGE RENAL DISEASE; Z99.2 - DEPENDENCE ON RENAL DIALYSIS (4) Diabetes Code(s): E11.9 - TYPE 2 DIABETES MELLITUS WITHOUT COMPLICATIONS (5) Diabetes mellitus, insulin dependent (IDDM), uncontrolled Code(s): E10.65 - TYPE 1 DIABETES MELLITUS WITH HYPERGLYCEMIA (6) Penicillin allergy Code(s): Z88.0 - ALLERGY STATUS TO PENICILLIN
[2018-09-03] MEDS: ACETYLCYSTEINE 20% 200MG/ML 4 ML VIAL *FOR ORAL / INH USE ONLY NEB SCH (21:00)
[2018-09-03] MEDS ORDERED: SODIUM CHLORIDE 250 ML IV PRN (22:35)
[2018-09-04] MEDS ORDERED: EPOETIN ALFA 2,000 UNIT/1 ML VIAL IVPUSH ONE (06:00)
[2018-09-04] MEDS: INSULIN SLIDING SCALE (NOVOLOG) 1 VIAL SQ SCH ×4 (06:26→22:27)
[2018-09-04] MEDS: INSULIN (LEVEMIR) 100 UNITS/ML UNITS SQ SCH (06:26)
[2018-09-04] MEDS ORDERED: VANCOMYCIN 1 GM PREMIX - 1 GM/200 ML BAG IVPB ONE ×2 (07:00→10:00)
[2018-09-04 07:07] LABS: HEMATOCRIT 27.8 % (32.4-45.2); HEMOGLOBIN 9.1 GM/dL (10.7-15.3); MCH 30.9 pg (25.7-33.7); MCHC 32.9 g/dl (32.0-36.0); MEAN PLT VOLUME 9.2 fl (7.5-11.1); PLATELET COUNT 168 K/MM3 (134-434); RBC 2.95 M/mm3 (3.60-5.2); RDW 14.5 % (11.6-15.6); WHITE BLOOD COUNT 5.7 K/mm3 (4.0-10.0)
[2018-09-04 08:01] LABS: ANION GAP 9 MMOL/L (8-16); BLOOD UREA NITROGEN 39 mg/dL (7-18); CALCIUM 7.9 mg/dL (8.5-10.1); CHLORIDE 101 mmol/L (98-107); CO2 28 mmol/L (21-32); GLUCOSE,RANDOM 145 mg/dL (74-106); PHOSPHOROUS 3.4 mg/dL (2.5-4.9); POTASSIUM 3.8 mmol/L (3.5-5.1); SODIUM 138 mmol/L (136-145)
[2018-09-04] MEDS ORDERED: MIDAZOLAM HCL 2 MG/2 ML SINGLE DOSE VIAL ONE (08:10)
[2018-09-04] MEDS ORDERED: LIDOCAINE HCL 1%, 10 MG/ML (20ML VIAL) PNB ONE (08:20)
[2018-09-04] MEDS ORDERED: BUPIVACAINE HCL/PF 0.5% (5MG/ML) 10 ML VIAL PNB ONE (08:20)
[2018-09-04 08:22] LABS: CREATININE 7.6 mg/dL (0.55-1.3)
[2018-09-04] MEDS ORDERED: BACITRACIN 50,000 UNITS VIAL TP ONE (08:40)
--- NOTE | 2018-09-04 09:16 | OP ---
Operative Note - Note: Operative Date: 09/04/18 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 Operation: Amputation of toes 1 through 5 and 5th met head resection right. Harvesting of plantar flap. Findings: Gangarene. OM. Foul smelling wound. 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
[2018-09-04] MEDS: MIDODRINE HCL 5 MG TABLET PO SCH ×3 (09:19→18:24)
[2018-09-04] MEDS: VITAMIN B COMP W-C 1 EA TABLET PO SCH (09:19)
[2018-09-04] MEDS: SEVELAMER CARBONATE 800 MG TAB (FP) PO SCH ×3 (09:19→18:23)
[2018-09-04] MEDS: SERTRALINE HCL 25 MG TABLET (FP) PO SCH (09:19)
[2018-09-04] MEDS: AZTREONAM 0.5 GM in DEXTROSE 5%-WATER - 50 ML IVPB SCH ×2 (09:19→22:22)
[2018-09-04] MEDS: ACETYLCYSTEINE 20% 200MG/ML 4 ML VIAL *FOR ORAL / INH USE ONLY NEB SCH ×2 (09:19→21:16)
--- NOTE | 2018-09-04 10:36 | PN ---
Progress Note, Physician Chief Complaint: ESRD B/L pedal gangrene History of Present Illness: On IV abx afebrile ID on board + leukocytosis POD #5 s/p Aortogram with RLE angio secondary to right foot gangrene Returned from OR this AM- TMA digits 1-5, excision of 5th metatarsal head. Denies any pain - Current Medication List Current Medications: Active Medications Acetylcysteine (Mucomyst 20 Oral / Inh Use Only*) 400 mg NEB RBID [facility] Albuterol Sulfate (Ventolin 0.083% Nebulizer Soln -) 1 amp NEB RQID [facility] Epoetin Denis (Epogen -) 10,000 unit IVPUSH ONCE ONE Stop: 09/04/18 10:02 Guaifenesin (Diabetic Tussin Dm -) 10 ml PO Q6HPO [facility] Sodium Chloride (Normal Saline -) 250 mls @ 3,000 mls/hr IV PRN PRN PRN Reason: Hypotension during Dialysis Stop: 09/04/18 22:35 Aztreonam 0.5 gm/ Dextrose 50 mls @ 100 mls/hr IVPB BID [facility]; Protocol Metronidazole (Flagyl 500mg Premixed Ivpb -) 500 mg in 100 mls @ 100 mls/hr IVPB Q8H-IV [facility] Insulin Aspart (Novolog Vial Sliding Scale -) 1 vial SQ ACHS [facility]; Protocol Insulin Detemir (Levemir Vial) 15 units SQ AM [facility] Midodrine (Proamatine -) 5 mg PO TID-MID [facility] Multivit/Ca Carb/B Cmplx/FA/Prenat (Nephro-Mahi -) 1 tablet PO DAILY [facility] Sertraline HCl (Zoloft -) 25 mg PO DAILY [facility] Sevelamer Carbonate (Renvela -) 2,400 mg PO CM [facility] - Objective Vital Signs: Vital Signs Temperature 97.8 F 09/04/18 09:17 Pulse Rate 58 L 09/04/18 10:15 Respiratory Rate 19 09/04/18 10:15 Blood Pressure 104/57 L 09/04/18 10:15 O2 Sat by Pulse Oximetry (%) 96 09/04/18 10:15 Constitutional: Yes: Well Nourished, No Distress, Calm Cardiovascular: Yes: Regular Rate and Rhythm Respiratory: Yes: Regular Gastrointestinal: Yes: Normal Bowel Sounds, Soft Musculoskeletal: Yes: Muscle Weakness Edema: No Peripheral Pulses WNL: Yes Neurological: Yes: Alert, Oriented Psychiatric: Yes: Alert, Oriented Labs: CBC, BMP 09/04/18 05:30 09/04/18 06:00 INR, PTT INR 1.47 (0.83-1.09) H 09/03/18 07:00 Problem List - Problems (1) Cellulitis Assessment/Plan: -IV abx -afebrile -Seen by ID -Blood cultures negative Code(s): L03.90 - CELLULITIS, UNSPECIFIED (2) Gangrene Assessment/Plan: -Seen by podiatry and Vascular surgery -TMA digits 1-5, excision of 5th metatarsal head -dressing intact Code(s): I96 - GANGRENE, NOT ELSEWHERE CLASSIFIED (3) Anemia Assessment/Plan: -2/2 to CKD -monitor trend Code(s): D64.9 - ANEMIA, UNSPECIFIED Qualifiers: Anemia type: other cause Other causes of anemia: chronic disease, kidney (4) Diabetes 1.5, managed as type 2 Assessment/Plan: -BGM AC HS -Endocrinology on board -A1c at 6.1 -Levemir + Novolog sliding scale -diabetic renal diet Code(s): E13.9 - OTHER SPECIFIED DIABETES MELLITUS WITHOUT COMPLICATIONS (5) ESRD (end stage renal disease) on dialysis Assessment/Plan: -Nephrology on board -Dialysis as per Renal Code(s): N18.6 - END STAGE RENAL DISEASE; Z99.2 - DEPENDENCE ON RENAL DIALYSIS (6) Atrial fibrillation Assessment/Plan: -rate controlled, chronic -Restart warfarin at outpatient dosing, with 10 mg today -Monitor daily INR's Code(s): I48.91 - UNSPECIFIED ATRIAL FIBRILLATION Qualifiers: Atrial fibrillation type: chronic Qualified Code(s): I48.2 - Chronic atrial fibrillation Assessment/Plan see problem list Physical therapy
[2018-09-04] MEDS ORDERED: SODIUM CHLORIDE 250 ML IV PRN (11:05)
[2018-09-04 11:15] LABS: HEMATOCRIT 27.7 % (32.4-45.2); HEMOGLOBIN 9.2 GM/dL (10.7-15.3); MCHC 33.2 g/dl (32.0-36.0); MEAN CELL VOLUME 93.4 fl (80-96); MEAN PLT VOLUME 8.8 fl (7.5-11.1); PLATELET COUNT 165 K/MM3 (134-434); RBC 2.97 M/mm3 (3.60-5.2); RDW 15.1 % (11.6-15.6); WHITE BLOOD COUNT 5.4 K/mm3 (4.0-10.0)
[2018-09-04] MEDS ORDERED: EPOETIN ALFA 10,000 UNIT/1 ML VIAL IVPUSH ONE (11:15)
[2018-09-04] MEDS: ALBUTEROL SO4 0.083% IH SOL 2.5 MG/3 ML VIAL.NEB. NEB SCH ×3 (11:20→21:17)
[2018-09-04] MEDS: guaiFENesin/D-M SUGAR-FREE/ACLHOL-FREE 118 ML BOTTLE PO SCH ×2 (13:36→18:31)
--- NOTE | 2018-09-04 14:56 | PN ---
Progress Note (short form) - Note Progress Note: currently at HD s/p Left TMA Vital Signs Period Temp Pulse Resp BP Sys/Prince Pulse Ox Last 24 Hr 97.8 F-99.2 F 48-86 16-20 96-133/48-68 95-100 cor-rrr lungs clear abd soft,nt ext dressing intact right foot dressing left big toe CBC, BMP 09/04/18 10:58 09/04/18 06:00 Microbiology 08/20/18 21:45 Blood - Peripheral Venous Blood Culture - Final NO GROWTH AFTER 5 DAYS INCUBATION 08/20/18 21:30 Blood - Peripheral Venous Blood Culture - Final NO GROWTH AFTER 5 DAYS INCUBATION a/p s/p right foot surgery today- toes amputated penicillin allergy- mouth swells esrd for 15 years DM 2003 afib on coumadin vanco/azactam/flagyl willl discuss left big toe infection with podiatry Problem List - Problems (1) Gangrene Code(s): I96 - GANGRENE, NOT ELSEWHERE CLASSIFIED (2) Cellulitis Code(s): L03.90 - CELLULITIS, UNSPECIFIED (3) ESRD (end stage renal disease) on dialysis Code(s): N18.6 - END STAGE RENAL DISEASE; Z99.2 - DEPENDENCE ON RENAL DIALYSIS (4) Diabetes Code(s): E11.9 - TYPE 2 DIABETES MELLITUS WITHOUT COMPLICATIONS (5) Diabetes mellitus, insulin dependent (IDDM), uncontrolled Code(s): E10.65 - TYPE 1 DIABETES MELLITUS WITH HYPERGLYCEMIA (6) Penicillin allergy Code(s): Z88.0 - ALLERGY STATUS TO PENICILLIN
--- NOTE | 2018-09-04 16:21 | PN ---
Progress Note (short form) - Note Progress Note: Renal follow up for ESRD on HD Pt seen and examined at the bedside s/p TMA this am no acute complaints awaiting dialysis Vital Signs Temperature 99.1 F 09/04/18 13:45 Pulse Rate 82 09/04/18 15:50 Respiratory Rate 18 09/04/18 15:50 Blood Pressure 84/47 L 09/04/18 15:50 O2 Sat by Pulse Oximetry (%) 95 09/04/18 12:00 Intake & Output 09/01/18 09/02/18 09/03/18 09/04/18 23:59 23:59 23:59 23:59 Intake Total 2046 1506 1258 1180 Output Total 0 Balance 6 1506 1258 1180 Weight 108.947 kg 108.976 kg 109.089 kg 108.182 kg NAD awake and alert irregular, no M/R CTA soft, obese, NT/ND CBC, BMP 09/04/18 10:58 09/04/18 06:00 Current Medications Acetylcysteine (Mucomyst 20 Oral / Inh Use Only*) 400 mg NEB RBID [facility] Albuterol Sulfate (Ventolin 0.083% Nebulizer Soln -) 1 amp NEB RQID [facility] Last Admin: 09/04/18 11:20 Dose: 1 amp Guaifenesin (Diabetic Tussin Dm -) 10 ml PO Q6HPO [facility] Aztreonam 0.5 gm/ Dextrose 50 mls @ 100 mls/hr IVPB BID [facility]; Protocol Metronidazole (Flagyl 500mg Premixed Ivpb -) 500 mg in 100 mls @ 100 mls/hr IVPB Q8H-IV [facility] Insulin Aspart (Novolog Vial Sliding Scale -) 1 vial SQ ACHS [facility]; Protocol Last Admin: 09/04/18 11:14 Dose: Not Given Insulin Detemir (Levemir Vial) 15 units SQ AM [facility] Midodrine (Proamatine -) 5 mg PO TID-MID [facility] Multivit/Ca Carb/B Cmplx/FA/Prenat (Nephro-Mahi -) 1 tablet PO DAILY [facility] Sertraline HCl (Zoloft -) 25 mg PO DAILY [facility] Sevelamer Carbonate (Renvela -) 2,400 mg PO CM [facility] Warfarin Sodium (Coumadin -) 10 mg PO DAILY@1800 [facility] 77 year old woman with hx of ESRD on HD, DM, Afib on Coumadin, CHF, Hypertension, HLD who presented with 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 #Gangrene of Foot r/o vascular insufficiency #ESRD on HD #DM #CKD related Anemia #Chronic Hypotension #Afib on Coumadin for HD today with UF as tolerated will continue BRAD with HD for anemia UF goal 3L as tolerated continue renal diet Abx as per ID wound care Thank you Alon Page DO
[2018-09-04] MEDS ORDERED: PT OWN MED DRAWER 7, Y5N ONE ×3 (17:18→18:36)
[2018-09-04] MEDS: WARFARIN NA 5 MG TABLET (UD) PO SCH (18:23)
[2018-09-04] MEDS ORDERED: ACETAMINOPHEN 325 MG TABLET (FP) PO ONE ×2 (19:30→20:00)
[2018-09-05] MEDS: guaiFENesin/D-M SUGAR-FREE/ACLHOL-FREE 118 ML BOTTLE PO SCH ×4 (00:28→17:44)
[2018-09-05] MEDS: INSULIN (LEVEMIR) 100 UNITS/ML UNITS SQ SCH (05:59)
[2018-09-05] MEDS: INSULIN SLIDING SCALE (NOVOLOG) 1 VIAL SQ SCH ×4 (05:59→23:14)
[2018-09-05] MEDS: ALBUTEROL SO4 0.083% IH SOL 2.5 MG/3 ML VIAL.NEB. NEB SCH ×4 (07:35→20:52)
[2018-09-05] MEDS: ACETYLCYSTEINE 20% 200MG/ML 4 ML VIAL *FOR ORAL / INH USE ONLY NEB SCH ×2 (07:35→20:50)
--- NOTE | 2018-09-05 07:57 | PN.GI ---
GI Progress Note Subjective: Patient denies abdominal pain, nausea, vomiting. Complain of one episode of diarrhea last night, no further epsidoes reported this morning. - Objective Vital Signs: Vital Signs Temperature 100.2 F H 09/05/18 06:00 Pulse Rate 84 09/05/18 06:00 Respiratory Rate 18 09/05/18 06:00 Blood Pressure 113/49 L 09/05/18 06:00 O2 Sat by Pulse Oximetry (%) 96 09/04/18 21:00 Constitutional: No Distress, Calm Eyes: Yes: Conjunctiva Clear HENT: Yes: Atraumatic Neck: Yes: Other (TLC) Cardiovascular: Yes: Regular Rate and Rhythm Respiratory: Yes: Regular, CTA Bilaterally Gastrointestinal Inspection: Yes: WNL. No: Ascites, Distention, Hernia, Scars, Other ...Auscultate: Yes: Normoactive Bowel Sounds. No: Hyperactive Bowel Sounds, Hypoactive Bowel Sounds, No Bowel Sounds, Other ...Palpate: Yes: Soft. No: Firm/Rigid, Guarding, Hepatomegaly, Mass, Pulsatile Mass, Splenomegaly, Tenderness, Tenderness, Epigastium, Tenderness, Rebound, Other ...Percussion: Yes: Tympanitic. No: Dullness, Fluid Wave, Other Wound/Incision: Yes: Dressing Dry and Intact (R foot) Neurological: Yes: Alert, Oriented Psychiatric: Yes: Alert, Oriented Labs: CBC, BMP 09/04/18 10:58 09/04/18 06:00 INR, PTT INR 1.47 (0.83-1.09) H 09/03/18 07:00 Active Medications Generic Name Dose Route Start Last Admin Trade Name Victorinoq PRN Reason Stop Dose Admin Acetylcysteine 400 mg 09/04/18 20:00 09/04/18 21:16 Mucomyst 20 Oral / Inh Use Only* NEB 400 mg RBID [facility] Administration Albuterol Sulfate 1 amp 09/04/18 12:00 09/04/18 21:17 Ventolin 0.083% Nebulizer Soln - NEB 1 amp RQID [facility] Administration Guaifenesin 10 ml 09/04/18 12:00 09/05/18 05:58 Diabetic Tussin Dm - PO 10 ml Q6HPO [facility] Administration Aztreonam 0.5 gm/ Dextrose 50 mls @ 100 mls/hr 09/04/18 22:00 09/04/18 22:22 IVPB 100 mls/hr BID [facility] Administration Protocol Metronidazole 500 mg in 100 mls @ 100 mls/hr 09/04/18 18:00 09/05/18 01:49 Flagyl 500mg Premixed Ivpb - IVPB 100 mls/hr Q8H-IV [facility] Administration Insulin Aspart 1 vial 09/04/18 11:00 09/05/18 05:59 Novolog Vial Sliding Scale - SQ 3 units ACHS [facility] Administration Protocol Insulin Detemir 15 units 09/05/18 07:00 09/05/18 05:59 Levemir Vial SQ 15 units AM [facility] Administration Midodrine 5 mg 09/04/18 14:00 09/04/18 18:24 Proamatine - PO 5 mg TID-MID [facility] Administration Multivit/Ca Carb/B Cmplx/FA/Prenat 1 tablet 09/05/18 10:00 Nephro-Mahi - PO DAILY [facility] Sertraline HCl 25 mg 09/05/18 10:00 Zoloft - PO DAILY [facility] Sevelamer Carbonate 2,400 mg 09/04/18 12:00 09/04/18 18:23 Renvela - PO 2,400 mg CM [facility] Administration Warfarin Sodium 10 mg 09/04/18 18:00 09/04/18 18:23 Coumadin - PO 10 mg DAILY@1800 [facility] Administration Problem List - Problems (1) Pancreatic cyst Assessment/Plan: R>patient is refusing MRI of Abdomen, will speak with patient at later date >CA 19-9 pending result >as outpatient to have EUS Code(s): K86.2 - CYST OF PANCREAS
[2018-09-05 08:33] LABS: HEMATOCRIT 26.9 % (32.4-45.2); HEMOGLOBIN 8.9 GM/dL (10.7-15.3); MCH 31.3 pg (25.7-33.7); MCHC 33.2 g/dl (32.0-36.0); MEAN CELL VOLUME 94.3 fl (80-96); MEAN PLT VOLUME 9.6 fl (7.5-11.1); PLATELET COUNT 164 K/MM3 (134-434); RBC 2.86 M/mm3 (3.60-5.2); RDW 15.1 % (11.6-15.6); WHITE BLOOD COUNT 7.3 K/mm3 (4.0-10.0)
[2018-09-05 08:45] LABS: INR 1.68 (0.83-1.09); PROTHROMBIN TIME (PATIENT) 19.9 SEC (9.7-13.0)
[2018-09-05 08:48] LABS: ACTIVATED PTT 42.5 SECONDS (25.2-36.5)
[2018-09-05] MEDS ORDERED: PT OWN MED DRAWER 7, Y5N ONE ×4 (09:25→21:17)
[2018-09-05] MEDS: SERTRALINE HCL 25 MG TABLET (FP) PO SCH (09:29)
[2018-09-05] MEDS: VITAMIN B COMP W-C 1 EA TABLET PO SCH (09:29)
[2018-09-05] MEDS: MIDODRINE HCL 5 MG TABLET PO SCH ×5 (09:29→17:44)
[2018-09-05] MEDS: SEVELAMER CARBONATE 800 MG TAB (FP) PO SCH ×3 (09:31→17:43)
[2018-09-05] MEDS: AZTREONAM 0.5 GM in DEXTROSE 5%-WATER - 50 ML IVPB SCH ×3 (09:58→22:26)
--- NOTE | 2018-09-05 10:34 | PN ---
Progress Note, Physician Chief Complaint: ESRD B/L pedal gangrene S/p R foot TMA History of Present Illness: Previous notes and events reviewed awake and alert NAD POD #1 TMA digits 1-5 and 5th met head resection low grade fever 100.2F - Current Medication List Current Medications: Active Medications Acetylcysteine (Mucomyst 20 Oral / Inh Use Only*) [address] [facility] Last Admin: 09/04/18 21:16 Dose: 400 mg Albuterol Sulfate (Ventolin 0.083% Nebulizer Soln -) [address] [facility] Last Admin: 09/04/18 21:17 Dose: 1 amp Guaifenesin (Diabetic Tussin Dm -) [address] [facility] Last Admin: 09/05/18 05:58 Dose: 10 ml Aztreonam 0.5 gm/ Dextrose 50 mls @ 100 mls/hr IVPB BID [facility]; Protocol Last Admin: 09/05/18 09:59 Dose: 100 mls/hr Metronidazole (Flagyl 500mg Premixed Ivpb -) 500 mg in 100 mls @ 100 mls/hr IVPB Q8H-IV [facility] Last Admin: 09/05/18 09:28 Dose: 100 mls/hr Insulin Aspart (Novolog Vial Sliding Scale -) [address] [facility]; Protocol Last Admin: 09/05/18 05:59 Dose: 3 units Insulin Detemir (Levemir Vial) [address] [facility] Last Admin: 09/05/18 05:59 Dose: 15 units Midodrine (Proamatine -) 5 [address] PO TID-MID [facility] Last Admin: 09/05/18 09:29 Dose: 5 mg Multivit/Ca Carb/B Cmplx/FA/Prenat (Nephro-Mahi -) [address] [facility] Last Admin: 09/05/18 09:29 Dose: 1 tablet Oxycodone/Acetaminophen (Percocet 5/325 -) [address] [facility] Sertraline HCl (Zoloft -) [address] [facility] Last Admin: 09/05/18 09:29 Dose: 25 mg Sevelamer Carbonate (Renvela -) 2,[address] [facility] Last Admin: 09/05/18 09:31 Dose: Not Given Warfarin Sodium (Coumadin -) 10 mg PO DAILY@1800 [facility] Last Admin: 09/04/18 18:23 Dose: 10 mg - Objective Vital Signs: Vital Signs Temperature 100.2 F H 09/05/18 06:00 Pulse Rate 84 09/05/18 06:00 Respiratory Rate 18 09/05/18 06:00 Blood Pressure 113/49 L 09/05/18 06:00 O2 Sat by Pulse Oximetry (%) 96 09/04/18 21:00 Constitutional: Yes: No Distress, Calm Eyes: Yes: Conjunctiva Clear HENT: Yes: Atraumatic Cardiovascular: Yes: Regular Rate and Rhythm Respiratory: Yes: Regular, CTA Bilaterally Gastrointestinal: Yes: Normal Bowel Sounds, Soft Musculoskeletal: Yes: Muscle Weakness Edema: No Wound/Incision: Yes: Dressing Dry and Intact (R foot) Neurological: Yes: Alert, Oriented Psychiatric: Yes: Alert, Oriented Labs: CBC, BMP 09/05/18 07:45 09/04/18 06:00 INR, PTT INR 1.68 (0.83-1.09) H 09/05/18 07:45 Microbiology 09/04/18 08:40 Foot - Right Wound Culture - Preliminary NO GROWTH OBTAINED AFTER 24 HOURS INCUBATION, REINCUBATED. 08/20/18 21:45 Blood - Peripheral Venous Blood Culture - Final NO GROWTH AFTER 5 DAYS INCUBATION 08/20/18 21:30 Blood - Peripheral Venous Blood Culture - Final NO GROWTH AFTER 5 DAYS INCUBATION Problem List - Problems (1) Gangrene Assessment/Plan: -vascular on board -podiatry on board -POD #1 TMA digits 1-5 and 5th met head resection Code(s): I96 - GANGRENE, NOT ELSEWHERE CLASSIFIED (2) Atrial fibrillation Assessment/Plan: -coumadin 10mg -daily INR monitoring -therapeutic goal INR 2-3 -metoprolol daily for rate control Code(s): I48.91 - UNSPECIFIED ATRIAL FIBRILLATION Qualifiers: Atrial fibrillation type: chronic Qualified Code(s): I48.2 - Chronic atrial fibrillation (3) ESRD (end stage renal disease) on dialysis Assessment/Plan: -renal on board -continue dialysis MWF -renal diet -monitor BUN/Cr daily -sevelamer Code(s): N18.6 - END STAGE RENAL DISEASE; Z99.2 - DEPENDENCE ON RENAL DIALYSIS (4) Hypotension Assessment/Plan: -cont midrodine TID Code(s): I95.9 - HYPOTENSION, UNSPECIFIED (5) Pancreatic cyst Assessment/Plan: -GI on board -patient is refusing MRI of Abdomen -CA 19-9 pending -EUS as outpatient Code(s): K86.2 - CYST OF PANCREAS (6) Diabetes 1.5, managed as type 2 Assessment/Plan: -BGM ACHS -Levemir and ISS -renal/diabetic diet Code(s): E13.9 - OTHER SPECIFIED DIABETES MELLITUS WITHOUT COMPLICATIONS (7) Cellulitis Assessment/Plan: -ID on board -WBC 7.3 -continue IV flagyl and azactam Code(s): L03.90 - CELLULITIS, UNSPECIFIED
[2018-09-05] MEDS ORDERED: ACETAMINOPHEN 325 MG TABLET (FP) PO PRN (10:39)
[2018-09-05] MEDS ORDERED: INSULIN (NOVOLOG) ASPART 100 UNITS/ML 10ML VIAL ONE (11:28)
[2018-09-05] MEDS: oxyCODONE HCL 5 MG TABLET PO PRN ×2 (11:32→23:17)
--- NOTE | 2018-09-05 14:56 | PN ---
Progress Note (short form) - Note Progress Note: Anesthesia Post op Pt seen and examined S:alert and awake O: Vital Signs Temperature 100.3 F H 09/05/18 14:38 Pulse Rate 88 09/05/18 14:38 Respiratory Rate 18 09/05/18 06:00 Blood Pressure 120/68 09/05/18 14:38 O2 Sat by Pulse Oximetry (%) 96 09/04/18 21:00 CBC, BMP 09/05/18 07:45 09/04/18 06:00 A/P: Current Active Problems Cellulitis (Acute) Diabetes 1.5, managed as type 2 (Acute) Gangrene (Acute) Pancreatic cyst (Acute) Penicillin allergy (Acute) Type 2 diabetes mellitus with diabetic peripheral angiopathy without gangrene ( Acute) s/p transmetatarsal amputation Doing well post op Continue current care Eddie Bellamy MD
--- NOTE | 2018-09-05 15:55 | PN ---
Progress Note (short form) - Note Progress Note: POD#1. No pain. vss, Tmax 100.3 +dressing clean dry and intact, wbc=7.3, +dusky left big toe, wound culture no growth normal post op early gangarene left foot Discussed with daughter and patient the need for HBO and if possible go to rehab for a week or two. Discussed early gangrenous changes left big toe. Will discuss with vascular. IVABX as per ID discussed with Dr. Doe. Will follow.
--- NOTE | 2018-09-05 16:13 | PN ---
Progress Note (short form) - Note Progress Note: Renal follow up for ESRD on HD Pt seen and examined at the bedside no acute complaints had pain in foot earlier today but now improved with meds no sob, cp, abd pain, N/V/D Vital Signs Temperature 100.3 F H 09/05/18 14:38 Pulse Rate 88 09/05/18 14:38 Respiratory Rate 18 09/05/18 09:00 Blood Pressure 120/68 09/05/18 14:38 O2 Sat by Pulse Oximetry (%) 96 09/04/18 21:00 Intake & Output 09/02/18 09/03/18 09/04/18 09/05/18 23:59 23:59 23:59 23:59 Intake Total 1506 1258 1305 800 Output Total 0 Balance 1506 1258 1305 800 Weight 108.976 kg 109.089 kg 108.182 kg 108.976 kg NAD awake and alert irregular, no M/R CTA soft, obese, NT/ND CBC, BMP 09/05/18 07:45 09/04/18 06:00 Current Medications Acetaminophen (Tylenol -) 650 mg PO Q6H PRN PRN Reason: FEVER Acetaminophen (Tylenol -) 650 mg PO Q6H PRN PRN Reason: PAIN LEVEL 1-5 Acetaminophen (Tylenol -) 325 mg PO Q6H PRN PRN Reason: PAIN 6-10 Acetylcysteine (Mucomyst 20 Oral / Inh Use Only*) 400 mg NEB RBID [facility] Last Admin: 09/05/18 07:35 Dose: 400 mg Albuterol Sulfate (Ventolin 0.083% Nebulizer Soln -) 1 amp NEB RQID [facility] Last Admin: 09/05/18 12:15 Dose: 1 amp Guaifenesin (Diabetic Tussin Dm -) 10 ml PO Q6HPO [facility] Last Admin: 09/05/18 11:39 Dose: Not Given Aztreonam 0.5 gm/ Dextrose 50 mls @ 100 mls/hr IVPB BID [facility]; Protocol Last Admin: 09/05/18 09:59 Dose: 100 mls/hr Metronidazole (Flagyl 500mg Premixed Ivpb -) 500 mg in 100 mls @ 100 mls/hr IVPB Q8H-IV [facility] Last Admin: 09/05/18 09:28 Dose: 100 mls/hr Insulin Aspart (Novolog Vial Sliding Scale -) 1 vial SQ ACHS [facility]; Protocol Last Admin: 09/05/18 11:38 Dose: 3 units Insulin Detemir (Levemir Vial) 15 units SQ AM [facility] Last Admin: 09/05/18 05:59 Dose: 15 units Midodrine (Proamatine -) 5 mg PO TID-MID [facility] Last Admin: 09/05/18 09:29 Dose: 5 mg Multivit/Ca Carb/B Cmplx/FA/Prenat (Nephro-Mahi -) 1 tablet PO DAILY [facility] Last Admin: 09/05/18 09:29 Dose: 1 tablet Oxycodone HCl (Roxicodone -) 5 mg PO Q6H PRN PRN Reason: PAIN 6-10 Last Admin: 09/05/18 11:32 Dose: 5 mg Sertraline HCl (Zoloft -) 25 mg PO DAILY [facility] Last Admin: 09/05/18 09:29 Dose: 25 mg Sevelamer Carbonate (Renvela -) 2,400 mg PO CM [facility] Last Admin: 09/05/18 11:12 Dose: 2,400 mg Warfarin Sodium (Coumadin -) 10 mg PO DAILY@1800 [facility] Last Admin: 09/04/18 18:23 Dose: 10 mg 77 year old woman with hx of ESRD on HD, DM, Afib on Coumadin, CHF, Hypertension, HLD who presented with 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 #Gangrene of Foot r/o vascular insufficiency #ESRD on HD #DM #CKD related Anemia #Chronic Hypotension #Afib on Coumadin no acute need for [employer] today for next Tx tomorrow continue Renal Diet, fluid restriction will give BRAD with HD for anemia mangement podiatry and vascular follow up pain control Thank you Alon Page DO
[2018-09-05] MEDS: WARFARIN NA 5 MG TABLET (UD) PO SCH (17:43)
[2018-09-05] MEDS: ACETAMINOPHEN 325 MG TABLET (FP) PO PRN (23:17)
[2018-09-06] MEDS: guaiFENesin/D-M SUGAR-FREE/ACLHOL-FREE 118 ML BOTTLE PO SCH ×4 (00:14→19:25)
[2018-09-06] MEDS: INSULIN (LEVEMIR) 100 UNITS/ML UNITS SQ SCH (06:13)
[2018-09-06] MEDS: INSULIN SLIDING SCALE (NOVOLOG) 1 VIAL SQ SCH ×4 (06:14→21:23)
[2018-09-06] MEDS: ACETAMINOPHEN 325 MG TABLET (FP) PO PRN (06:16)
[2018-09-06] MEDS: oxyCODONE HCL 5 MG TABLET PO PRN ×2 (06:16→16:42)
[2018-09-06] MEDS: ALBUTEROL SO4 0.083% IH SOL 2.5 MG/3 ML VIAL.NEB. NEB SCH ×4 (07:40→20:23)
[2018-09-06] MEDS: ACETYLCYSTEINE 20% 200MG/ML 4 ML VIAL *FOR ORAL / INH USE ONLY NEB SCH ×2 (07:40→20:23)
[2018-09-06 08:21] LABS: HEMATOCRIT 27.8 % (32.4-45.2); HEMOGLOBIN 9.1 GM/dL (10.7-15.3); MCHC 32.9 g/dl (32.0-36.0); MEAN CELL VOLUME 94.3 fl (80-96); MEAN PLT VOLUME 9.2 fl (7.5-11.1); PLATELET COUNT 187 K/MM3 (134-434); RBC 2.95 M/mm3 (3.60-5.2); RDW 15.1 % (11.6-15.6); WHITE BLOOD COUNT 9.1 K/mm3 (4.0-10.0)
[2018-09-06 08:55] LABS: INR 2.34 (0.83-1.09); PROTHROMBIN TIME (PATIENT) 27.8 SEC (9.7-13.0)
[2018-09-06] MEDS: AZTREONAM 0.5 GM in DEXTROSE 5%-WATER - 50 ML IVPB SCH ×2 (09:44→21:23)
[2018-09-06] MEDS: SEVELAMER CARBONATE 800 MG TAB (FP) PO SCH ×3 (09:44→19:28)
[2018-09-06] MEDS: VITAMIN B COMP W-C 1 EA TABLET PO SCH (09:45)
[2018-09-06] MEDS: MIDODRINE HCL 5 MG TABLET PO SCH ×3 (09:45→16:59)
[2018-09-06] MEDS: SERTRALINE HCL 25 MG TABLET (FP) PO SCH (09:46)
--- NOTE | 2018-09-06 09:56 | PN ---
Progress Note (short form) - Note Progress Note: POD#2. No pain. vss, Tmax 98.7 +dressing clean dry and intact, wbc=7.4, +improving dusky appearance left big toe, wound culture gram- rods normal post op early gangarene left foot Will remove dressing in am. Discussed with Dr. Alarcon. Will watch left foot closely outpatient for changes. Continue abx as per ID.
[2018-09-06] MEDS ORDERED: SODIUM CHLORIDE 250 ML IV PRN (10:30)
[2018-09-06 10:36] LABS: HEMATOCRIT 26.4 % (32.4-45.2); HEMOGLOBIN 8.6 GM/dL (10.7-15.3); MCHC 32.7 g/dl (32.0-36.0); MEAN CELL VOLUME 94.8 fl (80-96); MEAN PLT VOLUME 9.3 fl (7.5-11.1); PLATELET COUNT 167 K/MM3 (134-434); RBC 2.78 M/mm3 (3.60-5.2); RDW 14.8 % (11.6-15.6); WHITE BLOOD COUNT 7.4 K/mm3 (4.0-10.0)
[2018-09-06] MEDS ORDERED: EPOETIN ALFA 10,000 UNIT/1 ML VIAL IVPUSH ONE (10:45)
[2018-09-06 11:06] LABS: ANION GAP 10 MMOL/L (8-16); BLOOD UREA NITROGEN 30 mg/dL (7-18); CHLORIDE 103 mmol/L (98-107); CO2 28 mmol/L (21-32); CREATININE 5.8 mg/dL (0.55-1.3); GLUCOSE,RANDOM 223 mg/dL (74-106); POTASSIUM 3.5 mmol/L (3.5-5.1); SODIUM 141 mmol/L (136-145)
--- NOTE | 2018-09-06 13:54 | PN ---
Progress Note (short form) - Note Progress Note: Renal follow up for ESRD on HD Pt seen and examined during dialysis no acute complaints BP stable, goal UF 3.5L ,AVF with good flow no pain, fever, chills, sob ,cp Vital Signs Temperature 98.2 F 09/06/18 09:50 Pulse Rate 77 09/06/18 12:00 Respiratory Rate 18 09/06/18 12:00 Blood Pressure 108/52 L 09/06/18 12:00 O2 Sat by Pulse Oximetry (%) 96 09/05/18 20:35 Intake & Output 09/03/18 09/04/18 09/05/18 09/06/18 23:59 23:59 23:59 23:59 Intake Total 1258 1305 850 100 Output Total 0 Balance 1258 1305 850 100 Weight 109.089 kg 108.182 kg 108.976 kg 110.677 kg NAD awake and alert irregular, no M/R CTA soft, obese, NT/ND CBC, BMP 09/06/18 10:25 09/06/18 10:25 Current Medications Acetaminophen (Tylenol -) 650 mg PO Q6H PRN PRN Reason: FEVER Acetaminophen (Tylenol -) 650 mg PO Q6H PRN PRN Reason: PAIN LEVEL 1-5 Acetaminophen (Tylenol -) 325 mg PO Q6H PRN PRN Reason: PAIN 6-10 Last Admin: 09/06/18 06:16 Dose: 325 mg Acetylcysteine (Mucomyst 20 Oral / Inh Use Only*) 400 mg NEB RBID [facility] Last Admin: 09/06/18 07:40 Dose: 400 mg Albuterol Sulfate (Ventolin 0.083% Nebulizer Soln -) 1 amp NEB RQID [facility] Last Admin: 09/06/18 11:36 Dose: Not Given Guaifenesin (Diabetic Tussin Dm -) 10 ml PO Q6HPO [facility] Last Admin: 09/06/18 13:48 Dose: Not Given Aztreonam 0.5 gm/ Dextrose 50 mls @ 100 mls/hr IVPB BID [facility]; Protocol Last Admin: 09/06/18 09:44 Dose: Not Given Metronidazole (Flagyl 500mg Premixed Ivpb -) 500 mg in 100 mls @ 100 mls/hr IVPB Q8H-IV [facility] Last Admin: 09/06/18 09:45 Dose: Not Given Insulin Aspart (Novolog Vial Sliding Scale -) 1 vial SQ ACHS [facility]; Protocol Last Admin: 09/06/18 06:14 Dose: Not Given Insulin Detemir (Levemir Vial) 15 units SQ AM [facility] Last Admin: 09/06/18 06:13 Dose: 15 units Midodrine (Proamatine -) 5 mg PO TID-MID [facility] Last Admin: 09/06/18 13:49 Dose: Not Given Multivit/Ca Carb/B Cmplx/FA/Prenat (Nephro-Mahi -) 1 tablet PO DAILY [facility] Last Admin: 09/06/18 09:45 Dose: Not Given Oxycodone HCl (Roxicodone -) 5 mg PO Q6H PRN PRN Reason: PAIN 6-10 Last Admin: 09/06/18 06:16 Dose: 5 mg Sertraline HCl (Zoloft -) 25 mg PO DAILY [facility] Last Admin: 09/06/18 09:46 Dose: Not Given Sevelamer Carbonate (Renvela -) 2,400 mg PO CM [facility] Last Admin: 09/06/18 13:49 Dose: Not Given Warfarin Sodium (Coumadin -) 10 mg PO DAILY@1800 [facility] Last Admin: 09/05/18 17:43 Dose: 10 mg 77 year old woman with hx of ESRD on HD, DM, Afib on Coumadin, CHF, Hypertension, HLD who presented with 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 #Gangrene of Foot r/o vascular insufficiency #ESRD on HD #DM #CKD related Anemia #Chronic Hypotension #Afib on Coumadin tolerating dialysis well this am UF as tolerated continue supportive care pain control hyperbaric O2 as per podiatry continue midodrine TID continue phos binder Thank you Alon Page DO
--- NOTE | 2018-09-06 15:34 | PN ---
Progress Note, Physician Chief Complaint: pateint seen and examined just got back from HD - Current Medication List Current Medications: Active Medications Acetaminophen (Tylenol -) 650 mg PO Q6H PRN PRN Reason: FEVER Acetaminophen (Tylenol -) 650 mg PO Q6H PRN PRN Reason: PAIN LEVEL 1-5 Acetaminophen (Tylenol -) 325 mg PO Q6H PRN PRN Reason: PAIN 6-10 Last Admin: 09/06/18 06:16 Dose: 325 mg Acetylcysteine (Mucomyst 20 Oral / Inh Use Only*) 400 mg NEB RBID [facility] Last Admin: 09/06/18 07:40 Dose: 400 mg Albuterol Sulfate (Ventolin 0.083% Nebulizer Soln -) 1 amp NEB RQID [facility] Last Admin: 09/06/18 11:36 Dose: Not Given Guaifenesin (Diabetic Tussin Dm -) 10 ml PO Q6HPO [facility] Last Admin: 09/06/18 13:48 Dose: Not Given Aztreonam 0.5 gm/ Dextrose 50 mls @ 100 mls/hr IVPB BID [facility]; Protocol Last Admin: 09/06/18 09:44 Dose: Not Given Metronidazole (Flagyl 500mg Premixed Ivpb -) 500 mg in 100 mls @ 100 mls/hr IVPB Q8H-IV [facility] Last Admin: 09/06/18 09:45 Dose: Not Given Insulin Aspart (Novolog Vial Sliding Scale -) 1 vial SQ ACHS [facility]; Protocol Last Admin: 09/06/18 06:14 Dose: Not Given Insulin Detemir (Levemir Vial) 15 units SQ AM [facility] Last Admin: 09/06/18 06:13 Dose: 15 units Midodrine (Proamatine -) 5 mg PO TID-MID [facility] Last Admin: 09/06/18 13:49 Dose: Not Given Multivit/Ca Carb/B Cmplx/FA/Prenat (Nephro-Mahi -) 1 tablet PO DAILY [facility] Last Admin: 09/06/18 09:45 Dose: Not Given Oxycodone HCl (Roxicodone -) 5 mg PO Q6H PRN PRN Reason: PAIN 6-10 Last Admin: 09/06/18 06:16 Dose: 5 mg Sertraline HCl (Zoloft -) 25 mg PO DAILY [facility] Last Admin: 09/06/18 09:46 Dose: Not Given Sevelamer Carbonate (Renvela -) 2,400 mg PO CM [facility] Last Admin: 09/06/18 13:49 Dose: Not Given Warfarin Sodium (Coumadin -) 10 mg PO DAILY@1800 [facility] Last Admin: 09/05/18 17:43 Dose: 10 mg - Objective Vital Signs: Vital Signs Temperature 98.2 F 09/06/18 09:50 Pulse Rate 83 09/06/18 14:30 Respiratory Rate 18 09/06/18 14:30 Blood Pressure 108/55 L 09/06/18 14:30 O2 Sat by Pulse Oximetry (%) 96 09/05/18 20:35 Constitutional: Yes: Calm Cardiovascular: Yes: Regular Rate and Rhythm, S1, S2 Respiratory: Yes: CTA Bilaterally Gastrointestinal: Yes: Normal Bowel Sounds, Soft Extremities: Yes: Other (left foot wrapped) Neurological: Yes: Alert Labs: CBC, BMP 09/06/18 10:25 09/06/18 10:25 INR, PTT INR 2.34 (0.83-1.09) H 09/06/18 06:45 Problem List - Problems (1) Gangrene Assessment/Plan: angiogram done podiatry on bgoard iv abx per ID Code(s): I96 - GANGRENE, NOT ELSEWHERE CLASSIFIED (2) Atrial fibrillation Assessment/Plan: coumadin noted follow INR Code(s): I48.91 - UNSPECIFIED ATRIAL FIBRILLATION Qualifiers: Atrial fibrillation type: chronic Qualified Code(s): I48.2 - Chronic atrial fibrillation (3) ESRD (end stage renal disease) on dialysis Assessment/Plan: HD tmw per renal Code(s): N18.6 - END STAGE RENAL DISEASE; Z99.2 - DEPENDENCE ON RENAL DIALYSIS (4) Diabetes 1.5, managed as type 2 Assessment/Plan: on insulin Code(s): E13.9 - OTHER SPECIFIED DIABETES MELLITUS WITHOUT COMPLICATIONS
--- NOTE | 2018-09-06 15:53 | PN ---
Progress Note (short form) - Note Progress Note: resting comfortably Vital Signs Period Temp Pulse Resp BP Sys/Prince Pulse Ox Last 24 Hr 98.2 F-100.1 F 70-91 18-20 91-123/42-67 96 cor-rrr lungs clear abd soft,nt ext dressing right foot - postop' left big toe discolored, now dry gangrene CBC, BMP 09/06/18 10:25 09/06/18 10:25 Microbiology 09/04/18 08:40 Foot - Right Gram Stain - Final 09/04/18 08:40 Foot - Right Wound Culture - Preliminary Gram Negative Bebo Pending Organism Pending Organism#2 08/20/18 21:45 Blood - Peripheral Venous Blood Culture - Final NO GROWTH AFTER 5 DAYS INCUBATION 08/20/18 21:30 Blood - Peripheral Venous Blood Culture - Final NO GROWTH AFTER 5 DAYS INCUBATION Laboratory Tests 09/06/18 06:45 Random Vancomycin 22.2 a/p s/p right foot surgery today- toes amputated penicillin allergy- mouth swells esrd for 15 years DM 2003 afib on coumadin vanco/azactam/flagyl vanco trough 22 repeat in am, redose less then 15 switch flagyl to po willl discuss left big toe infection with podiatry-consider MRI if surgery is not planned d/w vascular Problem List - Problems (1) Gangrene Code(s): I96 - GANGRENE, NOT ELSEWHERE CLASSIFIED (2) Cellulitis Code(s): L03.90 - CELLULITIS, UNSPECIFIED (3) ESRD (end stage renal disease) on dialysis Code(s): N18.6 - END STAGE RENAL DISEASE; Z99.2 - DEPENDENCE ON RENAL DIALYSIS (4) Diabetes Code(s): E11.9 - TYPE 2 DIABETES MELLITUS WITHOUT COMPLICATIONS (5) Diabetes mellitus, insulin dependent (IDDM), uncontrolled Code(s): E10.65 - TYPE 1 DIABETES MELLITUS WITH HYPERGLYCEMIA (6) Penicillin allergy Code(s): Z88.0 - ALLERGY STATUS TO PENICILLIN
[2018-09-06] MEDS ORDERED: PT OWN MED DRAWER 7, Y5N ONE (16:59)
[2018-09-06] MEDS: WARFARIN NA 5 MG TABLET (UD) PO SCH (16:59)
--- NOTE | 2018-09-06 17:21 | PN ---
Progress Note (short form) - Note Progress Note: Vascular Surgery Pt seen and examined. Left great toe dry gangrene. Pt has a palpable DP pulse. Pt does not need angiogram. Can watch for now, but if toe gets worse, pt will need amputation by podiatry. Pt would expressed interest in trying HBO. 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 Will eventually need toe amputation Narciso Alarcon DO
--- NOTE | 2018-09-06 17:32 | PATH ---
Surgical Pathology Report Patient Name: SHELLEY ADAMS Med. Rec. #: [id number] /Age/Gender: 1940 (Age: 77) / F Account: [id number] Location: [address] [place] [address]/[facility] Taken: 09/04/2018 Received: 09/04/2018 Reported: 09/06/2018 Physicians: JAZMYN Reyes M.D. Specimen(s) Received TOES 1-5, 5TH METATARSAL HEAD AND TISSUE Clinical History Gangrene of foot Final Diagnosis TOES 1-5, FIFTH METATARSAL HEAD, NECROTIC BONE AND SOFT TISSUE, EXCISION: AMPUTATED TOES AND SEPARATE SKIN AND SOFT TISSUE SHOWING GANGRENOUS NECROSIS, ABSCESS FORMATION, AND ACUTE OSTEOMYELITIS. ACUTE OSTEOMYELITIS PRESENT AT ONE OF THE TOES' MARGIN. FIFTH METATARSAL HEAD, NEGATIVE FOR OSTEOMYELITIS. Electronically Signed Jordi Rodriguez M.D. Gross Description Received in formalin labeled "toes 1-5, fifth metatarsal head, necrotic bone and soft tissue," are 5 undesignated toe amputation specimens ranging from 2.7 x 1.7 x 1.4 cm to 6.5 x 3.0 x 2.7 cm. All 5 digits display gangrenous lesions which appear to involve the margins. Separately received within the same container is a 1.4 x 1.4 x 0.9 cm metatarsal head as well as a 4.0 x 3.2 x 0.8 cm aggregate of necrotic skin and soft tissue fragments. Assembly Inspector Helper sections are submitted in 7 cassettes as follows: 1-hallux margin, following decalcification; 2-5-margins from other four undesignated digits, following decalcification; 6-separately received metatarsal head, following decalcification; 7-separately received skin and soft tissue fragments. /09/05/201809/05/2018
[2018-09-06] MEDS ORDERED: INSULIN (NOVOLOG) ASPART 100 UNITS/ML 10ML VIAL ONE (21:12)
[2018-09-06] MEDS: metroNIDAZOLE 250 MG TABLET PO SCH (21:23)
[2018-09-07] MEDS: oxyCODONE HCL 5 MG TABLET PO PRN ×3 (00:01→21:57)
[2018-09-07] MEDS: guaiFENesin/D-M SUGAR-FREE/ACLHOL-FREE 118 ML BOTTLE PO SCH ×4 (00:15→17:02)
[2018-09-07] MEDS: INSULIN SLIDING SCALE (NOVOLOG) 1 VIAL SQ SCH ×4 (06:40→21:58)
[2018-09-07] MEDS: INSULIN (LEVEMIR) 100 UNITS/ML UNITS SQ SCH (06:41)
[2018-09-07 07:23] LABS: PROTHROMBIN TIME (PATIENT) 35.8 SEC (9.7-13.0)
[2018-09-07] MEDS: SEVELAMER CARBONATE 800 MG TAB (FP) PO SCH ×3 (08:11→17:01)
[2018-09-07] MEDS: ALBUTEROL SO4 0.083% IH SOL 2.5 MG/3 ML VIAL.NEB. NEB SCH ×4 (08:30→20:01)
[2018-09-07] MEDS: ACETYLCYSTEINE 20% 200MG/ML 4 ML VIAL *FOR ORAL / INH USE ONLY NEB SCH ×2 (08:30→20:01)
--- NOTE | 2018-09-07 08:30 | PN ---
Progress Note (short form) - Note Progress Note: POD#3. No pain. vss, Tmax 99.7 +dressing clean dry and intact, wbc=7.4, +improving dusky appearance left big toe, wound culture gram- rods, +dressing intact normal post op early gangarene left foot Packing pulled from right foot. Betadine dressing applied. Pt may have BRP. Patient can be dc to home and return for daily HBO as this would be most beneficial to her healing the feet. Will follow till dc. Daily betadine dressing change.
[2018-09-07] MEDS ORDERED: PT OWN MED DRAWER 7, Y5N ONE (10:33)
[2018-09-07] MEDS: SERTRALINE HCL 25 MG TABLET (FP) PO SCH (10:39)
[2018-09-07] MEDS: AZTREONAM 0.5 GM in DEXTROSE 5%-WATER - 50 ML IVPB SCH ×2 (10:39→21:59)
[2018-09-07] MEDS: metroNIDAZOLE 250 MG TABLET PO SCH ×2 (10:39→21:57)
[2018-09-07] MEDS: VITAMIN B COMP W-C 1 EA TABLET PO SCH (10:39)
[2018-09-07] MEDS: MIDODRINE HCL 5 MG TABLET PO SCH ×3 (10:40→17:03)
[2018-09-07] MEDS ORDERED: INSULIN (NOVOLOG) ASPART 100 UNITS/ML 10ML VIAL ONE (11:29)
--- NOTE | 2018-09-07 14:11 | PN ---
Progress Note, Physician - Current Medication List Current Medications: Active Medications Acetaminophen (Tylenol -) 650 mg PO Q6H PRN PRN Reason: FEVER Acetaminophen (Tylenol -) 650 mg PO Q6H PRN PRN Reason: PAIN LEVEL 1-5 Acetaminophen (Tylenol -) 325 mg PO Q6H PRN PRN Reason: PAIN 6-10 Last Admin: 09/06/18 06:16 Dose: 325 mg Acetylcysteine (Mucomyst 20 Oral / Inh Use Only*) 400 mg NEB RBID [facility] Last Admin: 09/07/18 08:30 Dose: 400 mg Albuterol Sulfate (Ventolin 0.083% Nebulizer Soln -) 1 amp NEB RQID [facility] Last Admin: 09/07/18 13:06 Dose: 1 amp Guaifenesin (Diabetic Tussin Dm -) 10 ml PO Q6HPO [facility] Last Admin: 09/07/18 11:32 Dose: Not Given Aztreonam 0.5 gm/ Dextrose 50 mls @ 100 mls/hr IVPB BID [facility]; Protocol Last Admin: 09/07/18 10:39 Dose: 100 mls/hr Insulin Aspart (Novolog Vial Sliding Scale -) 1 vial SQ ACHS [facility]; Protocol Last Admin: 09/07/18 11:31 Dose: 5 units Insulin Detemir (Levemir Vial) 15 units SQ AM [facility] Last Admin: 09/07/18 06:41 Dose: 15 units Metronidazole (Flagyl -) 500 mg PO BID [facility] Last Admin: 09/07/18 10:39 Dose: 500 mg Midodrine (Proamatine -) 5 mg PO TID-MID [facility] Last Admin: 09/07/18 13:40 Dose: 5 mg Multivit/Ca Carb/B Cmplx/FA/Prenat (Nephro-Mahi -) 1 tablet PO DAILY [facility] Last Admin: 09/07/18 10:39 Dose: 1 tablet Oxycodone HCl (Roxicodone -) 5 mg PO Q6H PRN PRN Reason: PAIN 6-10 Last Admin: 09/07/18 08:11 Dose: 5 mg Sertraline HCl (Zoloft -) 25 mg PO DAILY [facility] Last Admin: 09/07/18 10:39 Dose: 25 mg Sevelamer Carbonate (Renvela -) 2,400 mg PO CM [facility] Last Admin: 09/07/18 11:31 Dose: 2,400 mg Warfarin Sodium (Coumadin -) 10 mg PO DAILY@1800 [facility] Last Admin: 09/06/18 16:59 Dose: 10 mg - Objective Vital Signs: Vital Signs Temperature 99.0 F 09/07/18 09:00 Pulse Rate 84 09/07/18 09:00 Respiratory Rate 26 H 09/07/18 09:00 Blood Pressure 104/46 L 09/07/18 09:00 O2 Sat by Pulse Oximetry (%) 96 09/06/18 21:00 Labs: CBC, BMP 09/06/18 10:25 09/06/18 10:25 INR, PTT INR 3.00 (0.83-1.09) H 09/07/18 06:00 Assessment/Plan Problems (1) Gangrene Assessment/Plan: angiogram done podiatry on board Operative Date: 09/04/18 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 Operation: Amputation of toes 1 through 5 and 5th met head resection right. Harvesting of plantar flap. Findings: Gangarene. OM. Foul smelling wound. Post-Operative Diagnosis: Same as Pre-op Surgeon: Kajal Rodríguez iv per ID Code(s): I96 - GANGRENE, NOT ELSEWHERE CLASSIFIED (2) Atrial fibrillation Assessment/Plan: Coumadin noted follow INR INR, PTT INR 3.00 (0.83-1.09) H 09/07/18 06:00 Code(s): I48.91 - UNSPECIFIED ATRIAL FIBRILLATION Qualifiers: Atrial fibrillation type: chronic Qualified Code(s): I48.2 - Chronic atrial fibrillation (3) ESRD (end stage renal disease) on dialysis Assessment/Plan: HD tmw per renal Code(s): N18.6 - END STAGE RENAL DISEASE; Z99.2 - DEPENDENCE ON RENAL DIALYSIS (4) Diabetes 1.5, managed as type 2 Assessment/Plan: on insulin Code(s): E13.9 - OTHER SPECIFIED DIABETES MELLITUS WITHOUT COMPLICATIONS
[2018-09-07] MEDS: WARFARIN NA 5 MG TABLET (UD) PO SCH (17:01)
[2018-09-08] MEDS: guaiFENesin/D-M SUGAR-FREE/ACLHOL-FREE 118 ML BOTTLE PO SCH ×4 (00:30→17:32)
[2018-09-08] MEDS ORDERED: PT OWN MED DRAWER 7, Y5N ONE ×2 (01:15→09:43)
[2018-09-08] MEDS: INSULIN SLIDING SCALE (NOVOLOG) 1 VIAL SQ SCH ×4 (07:05→22:15)
[2018-09-08] MEDS: INSULIN (LEVEMIR) 100 UNITS/ML UNITS SQ SCH (07:05)
[2018-09-08] MEDS: ACETYLCYSTEINE 20% 200MG/ML 4 ML VIAL *FOR ORAL / INH USE ONLY NEB SCH ×2 (07:28→21:58)
[2018-09-08] MEDS: ALBUTEROL SO4 0.083% IH SOL 2.5 MG/3 ML VIAL.NEB. NEB SCH ×4 (07:28→21:58)
[2018-09-08 07:55] LABS: BASO % 0.3 % (0-2.0); EOS % 0.1 % (0-4.5); HEMATOCRIT 26.8 % (32.4-45.2); HEMOGLOBIN 8.8 GM/dL (10.7-15.3); LYMPH % 12.7 % (8-40); MCH 31.2 pg (25.7-33.7); MCHC 32.9 g/dl (32.0-36.0); MEAN CELL VOLUME 94.9 fl (80-96); MEAN PLT VOLUME 9.1 fl (7.5-11.1); MONO % 13.8 % (3.8-10.2); NEUT % 73.1 % (42.8-82.8); PLATELET COUNT 234 K/MM3 (134-434); RBC 2.82 M/mm3 (3.60-5.2); RDW 15.4 % (11.6-15.6); WHITE BLOOD COUNT 9.1 K/mm3 (4.0-10.0)
[2018-09-08] MEDS: SEVELAMER CARBONATE 800 MG TAB (FP) PO SCH ×3 (07:55→17:30)
[2018-09-08 08:10] LABS: INR 3.71 (0.83-1.09); PROTHROMBIN TIME (PATIENT) 44.4 SEC (9.7-13.0)
[2018-09-08 08:29] LABS: ALBUMIN 2.1 g/dl (3.4-5.0); ALK PHOS 53 U/L (45-117); ANION GAP 8 MMOL/L (8-16); BILIRUBIN,TOTAL 0.5 mg/dL (0.2-1); BLOOD UREA NITROGEN 39 mg/dL (7-18); CALCIUM 8.1 mg/dL (8.5-10.1); CHLORIDE 99 mmol/L (98-107); CO2 29 mmol/L (21-32); CREATININE 7.2 mg/dL (0.55-1.3); GLUCOSE,RANDOM 124 mg/dL (74-106); POTASSIUM 4.2 mmol/L (3.5-5.1); SGOT/AST 25 U/L (15-37); SGPT/ALT 18 U/L (13-61); SODIUM 135 mmol/L (136-145); TOT PROT 5.9 g/dl (6.4-8.2)
[2018-09-08] MEDS: metroNIDAZOLE 250 MG TABLET PO SCH ×2 (09:26→22:12)
[2018-09-08] MEDS: SERTRALINE HCL 25 MG TABLET (FP) PO SCH (09:26)
[2018-09-08] MEDS: VITAMIN B COMP W-C 1 EA TABLET PO SCH (09:27)
[2018-09-08] MEDS: AZTREONAM 0.5 GM in DEXTROSE 5%-WATER - 50 ML IVPB SCH ×2 (09:27→22:05)
[2018-09-08] MEDS: oxyCODONE HCL 5 MG TABLET PO PRN (09:41)
[2018-09-08] MEDS: MIDODRINE HCL 5 MG TABLET PO SCH ×3 (09:45→17:31)
--- NOTE | 2018-09-08 12:42 | PN ---
Progress Note, Physician - Current Medication List Current Medications: Active Medications Acetaminophen (Tylenol -) 650 mg PO Q6H PRN PRN Reason: FEVER Acetaminophen (Tylenol -) 650 mg PO Q6H PRN PRN Reason: PAIN LEVEL 1-5 Acetaminophen (Tylenol -) 325 mg PO Q6H PRN PRN Reason: PAIN 6-10 Last Admin: 09/06/18 06:16 Dose: 325 mg Acetylcysteine (Mucomyst 20 Oral / Inh Use Only*) 400 mg NEB RBID [facility] Last Admin: 09/08/18 07:28 Dose: 400 mg Albuterol Sulfate (Ventolin 0.083% Nebulizer Soln -) 1 amp NEB RQID [facility] Last Admin: 09/08/18 12:37 Dose: 1 amp Guaifenesin (Diabetic Tussin Dm -) 10 ml PO Q6HPO [facility] Last Admin: 09/08/18 11:39 Dose: Not Given Aztreonam 0.5 gm/ Dextrose 50 mls @ 100 mls/hr IVPB BID [facility]; Protocol Last Admin: 09/08/18 09:27 Dose: 100 mls/hr Insulin Aspart (Novolog Vial Sliding Scale -) 1 vial SQ ACHS [facility]; Protocol Last Admin: 09/08/18 11:04 Dose: 5 units Insulin Detemir (Levemir Vial) 15 units SQ AM [facility] Last Admin: 09/08/18 07:05 Dose: Not Given Metronidazole (Flagyl -) 500 mg PO BID [facility] Last Admin: 09/08/18 09:26 Dose: 500 mg Midodrine (Proamatine -) 5 mg PO TID-MID [facility] Last Admin: 09/08/18 09:45 Dose: 5 mg Multivit/Ca Carb/B Cmplx/FA/Prenat (Nephro-Mahi -) 1 tablet PO DAILY [facility] Last Admin: 09/08/18 09:27 Dose: 1 tablet Sertraline HCl (Zoloft -) 25 mg PO DAILY [facility] Last Admin: 09/08/18 09:26 Dose: 25 mg Sevelamer Carbonate (Renvela -) 2,400 mg PO CM [facility] Last Admin: 09/08/18 11:38 Dose: 2,400 mg Warfarin Sodium (Coumadin -) 7.5 mg PO DAILY@1800 [facility] Last Admin: 09/07/18 17:01 Dose: 7.5 mg - Objective Vital Signs: Vital Signs Temperature 98.9 F 09/08/18 06:00 Pulse Rate 84 09/08/18 06:00 Respiratory Rate 20 09/08/18 09:00 Blood Pressure 104/64 09/08/18 06:00 O2 Sat by Pulse Oximetry (%) 95 09/08/18 09:00 Cardiovascular: Yes: S1, S2 Respiratory: Yes: Regular, CTA Bilaterally Gastrointestinal: Yes: Normal Bowel Sounds, Soft Integumentary: Yes: Other (toe with changes--early gangrene) Wound/Incision: Yes: Dressing Dry and Intact (-right) Labs: CBC, BMP 09/08/18 06:00 09/08/18 06:00 INR, PTT INR 3.71 (0.83-1.09) H 09/08/18 06:00 Assessment/Plan Problems (1) Gangrene Assessment/Plan: angiogram done podiatry on board Operative Date: 09/04/18 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 Operation: Amputation of toes 1 through 5 and 5th met head resection right. Harvesting of plantar flap. Findings: Gangarene. OM. Foul smelling wound. Post-Operative Diagnosis: Same as Pre-op Surgeon: Kajal Rodríguez iv abx per ID Code(s): I96 - GANGRENE, NOT ELSEWHERE CLASSIFIED left foot gangrene xray (2) Atrial fibrillation Assessment/Plan: Coumadin noted follow INR INR, PTT INR 3.00 (0.83-1.09) H 09/07/18 06:00 Code(s): I48.91 - UNSPECIFIED ATRIAL FIBRILLATION Qualifiers: Atrial fibrillation type: chronic Qualified Code(s): I48.2 - Chronic atrial fibrillation (3) ESRD (end stage renal disease) on dialysis Assessment/Plan: HD tmw per renal Code(s): N18.6 - END STAGE RENAL DISEASE; Z99.2 - DEPENDENCE ON RENAL DIALYSIS (4) Diabetes 1.5, managed as type 2 Assessment/Plan: on insulin Code(s): E13.9 - OTHER SPECIFIED DIABETES MELLITUS WITHOUT COMPLICATIONS
[2018-09-08] MEDS ORDERED: INSULIN (NOVOLOG) ASPART 100 UNITS/ML 10ML VIAL ONE (16:05)
[2018-09-08] MEDS: WARFARIN NA 5 MG TABLET (UD) PO SCH (17:30)
[2018-09-09] MEDS: guaiFENesin/D-M SUGAR-FREE/ACLHOL-FREE 118 ML BOTTLE PO SCH ×3 (00:05→12:00)
[2018-09-09] MEDS: INSULIN (LEVEMIR) 100 UNITS/ML UNITS SQ SCH (06:21)
[2018-09-09] MEDS: INSULIN SLIDING SCALE (NOVOLOG) 1 VIAL SQ SCH ×4 (06:21→22:05)
[2018-09-09] MEDS ORDERED: SODIUM CHLORIDE 250 ML IV PRN (07:54)
[2018-09-09] MEDS: ALBUTEROL SO4 0.083% IH SOL 2.5 MG/3 ML VIAL.NEB. NEB SCH (08:04)
[2018-09-09] MEDS: ACETYLCYSTEINE 20% 200MG/ML 4 ML VIAL *FOR ORAL / INH USE ONLY NEB SCH ×2 (08:05→22:26)
[2018-09-09] MEDS ORDERED: PT OWN MED DRAWER 7, Y5N ONE ×4 (08:19→21:48)
[2018-09-09 08:20] LABS: INR 3.99 (0.83-1.09); PROTHROMBIN TIME (PATIENT) 47.8 SEC (9.7-13.0)
[2018-09-09] MEDS: SEVELAMER CARBONATE 800 MG TAB (FP) PO SCH ×3 (08:21→17:24)
--- NOTE | 2018-09-09 09:04 | PN ---
Progress Note (short form) - Note Progress Note: POD#5. No pain. vss, Tmax 97.8 +dressing clean dry and intact, wbc=8.8, +improving dusky appearance left big toe, wound culture results are back normal post op early gangarene left foot Continue betadine dressings to right foot. Discussed with vascular and ID. Currently vascular recommends watching toe left foot. ID will treat with abx. Pt may have BRP. Patient can be dc to home and return for daily HBO as this would be most beneficial to her healing the feet. Will follow till dc.
[2018-09-09 09:16] LABS: HEMATOCRIT 26.8 % (32.4-45.2); HEMOGLOBIN 8.9 GM/dL (10.7-15.3); MCH 31.3 pg (25.7-33.7); MCHC 33.1 g/dl (32.0-36.0); MEAN CELL VOLUME 94.5 fl (80-96); MEAN PLT VOLUME 8.9 fl (7.5-11.1); PLATELET COUNT 245 K/MM3 (134-434); RBC 2.84 M/mm3 (3.60-5.2); RDW 15.4 % (11.6-15.6); WHITE BLOOD COUNT 8.8 K/mm3 (4.0-10.0)
[2018-09-09 09:50] LABS: ANION GAP 11 MMOL/L (8-16); BLOOD UREA NITROGEN 56 mg/dL (7-18); CALCIUM 8.2 mg/dL (8.5-10.1); CHLORIDE 97 mmol/L (98-107); CO2 27 mmol/L (21-32); GLUCOSE,RANDOM 196 mg/dL (74-106); PHOSPHOROUS 4.7 mg/dL (2.5-4.9); POTASSIUM 4.5 mmol/L (3.5-5.1); SODIUM 134 mmol/L (136-145)
[2018-09-09] MEDS: metroNIDAZOLE 250 MG TABLET PO SCH ×2 (10:06→22:05)
[2018-09-09] MEDS: VITAMIN B COMP W-C 1 EA TABLET PO SCH (10:06)
[2018-09-09] MEDS: MIDODRINE HCL 5 MG TABLET PO SCH ×2 (10:06→15:27)
[2018-09-09] MEDS: SERTRALINE HCL 25 MG TABLET (FP) PO SCH (10:06)
[2018-09-09 10:48] LABS: CREATININE 8.5 mg/dL (0.55-1.3)
[2018-09-09] MEDS ORDERED: EPOETIN ALFA 10,000 UNIT/1 ML VIAL IVPUSH ONE (12:15)
[2018-09-09] MEDS: ACETAMINOPHEN 325 MG TABLET (FP) PO PRN ×2 (12:39→22:05)
[2018-09-09] MEDS: oxyCODONE HCL 5 MG TABLET PO PRN ×2 (12:54→22:05)
--- NOTE | 2018-09-09 13:28 | PN ---
Progress Note (short form) - Note Progress Note: Renal follow up for ESRD on HD Pt seen and examined during dialysis BP stable, goal UF is 3-3.5L AVF with good flow no sob, cp, abd pain, N/V/D, fever or chills Vital Signs Temperature 97.8 F 09/09/18 10:00 Pulse Rate 62 09/09/18 12:15 Respiratory Rate 18 09/09/18 12:15 Blood Pressure 90/50 L 09/09/18 12:15 O2 Sat by Pulse Oximetry (%) 98 09/09/18 09:00 Intake & Output 09/06/18 09/07/18 09/08/18 09/09/18 23:59 23:59 23:59 23:59 Intake Total 400 550 720 220 Output Total 0 0 0 Balance 400 550 720 220 Weight 110.677 kg 109.826 kg 110.847 kg 110.223 kg NAD awake and alert irregular, no M/R CTA soft, obese, NT/ND CBC, BMP 09/09/18 08:50 09/09/18 08:50 Current Medications Acetaminophen (Tylenol -) 650 mg PO Q6H PRN PRN Reason: FEVER Last Admin: 09/08/18 20:50 Dose: 650 mg Acetaminophen (Tylenol -) 650 mg PO Q6H PRN PRN Reason: PAIN LEVEL 1-5 Last Admin: 09/09/18 12:39 Dose: 650 mg Acetaminophen (Tylenol -) 325 mg PO Q6H PRN PRN Reason: PAIN 6-10 Last Admin: 09/06/18 06:16 Dose: 325 mg Acetylcysteine (Mucomyst 20 Oral / Inh Use Only*) 400 mg NEB RBID [facility] Last Admin: 09/09/18 08:05 Dose: 400 mg Guaifenesin (Diabetic Tussin Dm -) 10 ml PO Q6HPO [facility] Last Admin: 09/09/18 05:57 Dose: Not Given Aztreonam 0.5 gm/ Dextrose 50 mls @ 100 mls/hr IVPB BID [facility]; Protocol Last Admin: 09/08/18 22:05 Dose: 100 mls/hr Sodium Chloride (Normal Saline -) 250 mls @ 3,000 mls/hr IV PRN PRN PRN Reason: Hypotension during Dialysis Stop: 09/10/18 07:54 Insulin Aspart (Novolog Vial Sliding Scale -) 1 vial SQ ACHS [facility]; Protocol Last Admin: 09/09/18 06:21 Dose: Not Given Insulin Detemir (Levemir Vial) 15 units SQ AM [facility] Last Admin: 09/09/18 06:21 Dose: 15 units Metronidazole (Flagyl -) 500 mg PO BID [facility] Last Admin: 09/09/18 10:06 Dose: 500 mg Midodrine (Proamatine -) 5 mg PO TID-MID [facility] Last Admin: 09/09/18 10:06 Dose: 5 mg Multivit/Ca Carb/B Cmplx/FA/Prenat (Nephro-Mahi -) 1 tablet PO DAILY [facility] Last Admin: 09/09/18 10:06 Dose: 1 tablet Oxycodone HCl (Roxicodone -) 5 mg PO Q6H PRN PRN Reason: PAIN LEVEL 7 - 10 Last Admin: 09/09/18 12:54 Dose: 5 mg Sertraline HCl (Zoloft -) 25 mg PO DAILY [facility] Last Admin: 09/09/18 10:06 Dose: 25 mg Sevelamer Carbonate (Renvela -) 2,400 mg PO CM [facility] Last Admin: 09/09/18 08:21 Dose: 2,400 mg Warfarin Sodium (Coumadin -) 7.5 mg PO DAILY@1800 [facility] Last Admin: 09/08/18 17:30 Dose: Not Given 77 year old woman with hx of ESRD on HD, DM, Afib on Coumadin, CHF, Hypertension, HLD who presented with 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 #Gangrene of Foot r/o vascular insufficiency #ESRD on HD #DM #CKD related Anemia #Chronic Hypotension #Afib on Coumadin tolerating dialysis well this am UF as tolerated continue supportive care pain control wound care as per podiatry abx as per ID Renal diet, 1.2L fluid restriction Thank you Alon Page DO
[2018-09-09] MEDS: AZTREONAM 0.5 GM in DEXTROSE 5%-WATER - 50 ML IVPB SCH ×2 (15:20→22:50)
--- NOTE | 2018-09-09 17:24 | PN ---
Progress Note (short form) - Note Progress Note: resting comfortably reports dressing change by dr finn- right foot today Vital Signs Period Temp Pulse Resp BP Sys/Prince Pulse Ox Last 24 Hr 97.8 F-98.3 F 60-99 18-22 78-104/45-88 95-98 cor-rrr lungs clear abd soft,nt ext dressing right foot - postop' left big toe discolored, now dry gangrene CBC, BMP 09/09/18 08:50 09/09/18 08:50 Microbiology 09/04/18 08:40 Foot - Right Gram Stain - Final 09/04/18 08:40 Foot - Right Wound Culture - Final Morganella Morganii Staphylococcus Coagulase Neg Enterococcus Faecalis 08/20/18 21:45 Blood - Peripheral Venous Blood Culture - Final NO GROWTH AFTER 5 DAYS INCUBATION 08/20/18 21:30 Blood - Peripheral Venous Blood Culture - Final NO GROWTH AFTER 5 DAYS INCUBATION a/p s/p right foot surgery today- toes amputated penicillin allergy- mouth swells esrd for 15 years DM 2003 afib on coumadin will d/w podiatry redose vancomycin today Problem List - Problems (1) Gangrene Code(s): I96 - GANGRENE, NOT ELSEWHERE CLASSIFIED (2) Cellulitis Code(s): L03.90 - CELLULITIS, UNSPECIFIED (3) ESRD (end stage renal disease) on dialysis Code(s): N18.6 - END STAGE RENAL DISEASE; Z99.2 - DEPENDENCE ON RENAL DIALYSIS (4) Diabetes Code(s): E11.9 - TYPE 2 DIABETES MELLITUS WITHOUT COMPLICATIONS (5) Diabetes mellitus, insulin dependent (IDDM), uncontrolled Code(s): E10.65 - TYPE 1 DIABETES MELLITUS WITH HYPERGLYCEMIA (6) Penicillin allergy Code(s): Z88.0 - ALLERGY STATUS TO PENICILLIN
[2018-09-09] MEDS ORDERED: VANCOMYCIN 1 GM PREMIX - 1 GM/200 ML BAG IVPB ONE (17:30)
[2018-09-09] MEDS: WARFARIN NA 5 MG TABLET (UD) PO SCH (17:30)
[2018-09-10] MEDS: guaiFENesin/D-M SUGAR-FREE/ACLHOL-FREE 118 ML BOTTLE PO SCH ×5 (00:17→17:05)
[2018-09-10] MEDS: INSULIN SLIDING SCALE (NOVOLOG) 1 VIAL SQ SCH ×4 (06:18→22:50)
[2018-09-10] MEDS: INSULIN (LEVEMIR) 100 UNITS/ML UNITS SQ SCH (06:34)
[2018-09-10] MEDS: SEVELAMER CARBONATE 800 MG TAB (FP) PO SCH ×3 (07:53→17:05)
[2018-09-10] MEDS: ACETYLCYSTEINE 20% 200MG/ML 4 ML VIAL *FOR ORAL / INH USE ONLY NEB SCH ×2 (08:00→21:05)
[2018-09-10] MEDS ORDERED: PT OWN MED DRAWER 7, Y5N ONE ×2 (09:11→17:04)
[2018-09-10] MEDS: SERTRALINE HCL 25 MG TABLET (FP) PO SCH (09:15)
[2018-09-10] MEDS: metroNIDAZOLE 250 MG TABLET PO SCH (09:16)
[2018-09-10] MEDS: VITAMIN B COMP W-C 1 EA TABLET PO SCH (09:16)
[2018-09-10] MEDS: MIDODRINE HCL 5 MG TABLET PO SCH ×3 (09:16→17:05)
[2018-09-10] MEDS: AZTREONAM 0.5 GM in DEXTROSE 5%-WATER - 50 ML IVPB SCH (11:09)
[2018-09-10] MEDS: oxyCODONE HCL 5 MG TABLET PO PRN (11:46)
[2018-09-10 13:06] LABS: HEMATOCRIT 28.7 % (32.4-45.2); HEMOGLOBIN 9.4 GM/dL (10.7-15.3); MCH 31.3 pg (25.7-33.7); MCHC 32.9 g/dl (32.0-36.0); MEAN CELL VOLUME 95.1 fl (80-96); MEAN PLT VOLUME 9.2 fl (7.5-11.1); PLATELET COUNT 255 K/MM3 (134-434); RBC 3.01 M/mm3 (3.60-5.2); RDW 15.5 % (11.6-15.6)
[2018-09-10 15:13] LABS: INR 3.96 (0.83-1.09); PROTHROMBIN TIME (PATIENT) 47.4 SEC (9.7-13.0)
--- NOTE | 2018-09-10 15:54 | PN ---
Progress Note, Physician Chief Complaint: ESRD B/L pedal gangrene S/p R foot TMA History of Present Illness: Previous notes and events reviewed awake and alert NAD POD #6 TMA digits 1-5 and 5th met head resection denies chest pain, SOB patient sts pain is controlled - Current Medication List Current Medications: Active Medications Acetaminophen (Tylenol -) 650 mg PO Q6H PRN PRN Reason: FEVER Last Admin: 09/08/18 20:50 Dose: 650 mg Acetaminophen (Tylenol -) 650 mg PO Q6H PRN PRN Reason: PAIN LEVEL 1-5 Last Admin: 09/09/18 12:39 Dose: 650 mg Acetaminophen (Tylenol -) 325 mg PO Q6H PRN PRN Reason: PAIN 6-10 Last Admin: 09/09/18 22:05 Dose: 325 mg Acetylcysteine (Mucomyst 20 Oral / Inh Use Only*) 400 mg NEB RBID [facility] Last Admin: 09/10/18 08:00 Dose: Not Given Guaifenesin (Diabetic Tussin Dm -) 10 ml PO Q6HPO [facility] Last Admin: 09/10/18 13:17 Dose: 10 ml Insulin Aspart (Novolog Vial Sliding Scale -) 1 vial SQ [facility]; Protocol Last Admin: 09/10/18 11:24 Dose: Not Given Insulin Detemir (Levemir Vial) 15 units SQ AM [facility] Last Admin: 09/10/18 06:34 Dose: 15 units Midodrine (Proamatine -) 5 mg PO TID-MID [facility] Last Admin: 09/10/18 13:38 Dose: 5 mg Multivit/Ca Carb/B Cmplx/FA/Prenat (Nephro-Mahi -) 1 tablet PO DAILY [facility] Last Admin: 09/10/18 09:16 Dose: 1 tablet Oxycodone HCl (Roxicodone -) 5 mg PO Q6H PRN PRN Reason: PAIN LEVEL 7 - 10 Last Admin: 09/10/18 11:46 Dose: 5 mg Sertraline HCl (Zoloft -) 25 mg PO DAILY [facility] Last Admin: 09/10/18 09:15 Dose: 25 mg Sevelamer Carbonate (Renvela -) 2,400 mg PO CM [facility] Last Admin: 09/10/18 11:47 Dose: 2,400 mg Warfarin Sodium (Coumadin -) 7.5 mg PO DAILY@1800 [facility] Last Admin: 09/09/18 17:30 Dose: Not Given - Objective Vital Signs: Vital Signs Temperature 98.7 F 09/10/18 13:39 Pulse Rate 85 09/10/18 13:39 Respiratory Rate 20 09/10/18 09:43 Blood Pressure 136/55 L 09/10/18 13:39 O2 Sat by Pulse Oximetry (%) 98 09/09/18 20:19 Constitutional: Yes: No Distress, Calm Eyes: Yes: Conjunctiva Clear HENT: Yes: Atraumatic Cardiovascular: Yes: Regular Rate and Rhythm Respiratory: Yes: Regular, CTA Bilaterally Gastrointestinal: Yes: Normal Bowel Sounds, Soft, Abdomen, Obese Genitourinary: Yes: Incontinence Musculoskeletal: Yes: Muscle Weakness Extremities: Yes: Amputation (R foot TMA) Edema: No Wound/Incision: Yes: Dressing Dry and Intact Neurological: Yes: Alert, Oriented Psychiatric: Yes: Alert, Oriented Labs: CBC, BMP 09/10/18 10:15 09/09/18 08:50 INR, PTT INR 3.96 (0.83-1.09) H 09/10/18 12:15 Problem List - Problems (1) Gangrene Assessment/Plan: -vascular on board -podiatry on board -POD #6 TMA digits 1-5 and 5th met head resection -IV vancomycin Code(s): I96 - GANGRENE, NOT ELSEWHERE CLASSIFIED (2) Atrial fibrillation Assessment/Plan: -coumadin 10mg -daily INR monitoring -therapeutic goal INR 2-3 -metoprolol daily for rate control -current INR 3.96--hold coumadin until in therapeutic range Code(s): I48.91 - UNSPECIFIED ATRIAL FIBRILLATION Qualifiers: Atrial fibrillation type: chronic Qualified Code(s): I48.2 - Chronic atrial fibrillation (3) ESRD (end stage renal disease) on dialysis Assessment/Plan: -renal on board -continue dialysis MWF -renal diet -monitor BUN/Cr daily -sevelamer Code(s): N18.6 - END STAGE RENAL DISEASE; Z99.2 - DEPENDENCE ON RENAL DIALYSIS (4) Hypotension Assessment/Plan: -cont midrodine TID Code(s): I95.9 - HYPOTENSION, UNSPECIFIED (5) Pancreatic cyst Assessment/Plan: -GI on board -patient is refusing MRI of Abdomen -CA 19-9 1 -EUS as outpatient Code(s): K86.2 - CYST OF PANCREAS (6) Diabetes 1.5, managed as type 2 Assessment/Plan: -BGM ACHS -Levemir and ISS -renal/diabetic diet Code(s): E13.9 - OTHER SPECIFIED DIABETES MELLITUS WITHOUT COMPLICATIONS (7) Cellulitis Assessment/Plan: -ID on board -WBC 7.0 -continue IV vancomycin Code(s): L03.90 - CELLULITIS, UNSPECIFIED Assessment/Plan see problem list dvt ppx
--- NOTE | 2018-09-10 16:36 | PN ---
Progress Note (short form) - Note Progress Note: Renal follow up for ESRD on HD Pt seen and examined at the bedside awake and alert no acute complaints no sob, cp, abd pain, N/V/D Vital Signs Temperature 98.7 F 09/10/18 13:39 Pulse Rate 85 09/10/18 13:39 Respiratory Rate 20 09/10/18 09:43 Blood Pressure 136/55 L 09/10/18 13:39 O2 Sat by Pulse Oximetry (%) 98 09/09/18 20:19 Intake & Output 09/07/18 09/08/18 09/09/18 09/10/18 23:59 23:59 23:59 23:59 Intake Total 550 720 445 700 Output Total 0 0 0 0 Balance 550 720 445 700 Weight 109.826 kg 110.847 kg 110.223 kg 108.862 kg NAD awake and alert irregular, no M/R CTA soft, obese, NT/ND no LE edema CBC, BMP 09/10/18 10:15 09/09/18 08:50 Current Medications Acetaminophen (Tylenol -) 650 mg PO Q6H PRN PRN Reason: FEVER Last Admin: 09/08/18 20:50 Dose: 650 mg Acetaminophen (Tylenol -) 650 mg PO Q6H PRN PRN Reason: PAIN LEVEL 1-5 Last Admin: 09/09/18 12:39 Dose: 650 mg Acetaminophen (Tylenol -) 325 mg PO Q6H PRN PRN Reason: PAIN 6-10 Last Admin: 09/09/18 22:05 Dose: 325 mg Acetylcysteine (Mucomyst 20 Oral / Inh Use Only*) 400 mg NEB RBID [facility] Last Admin: 09/10/18 08:00 Dose: Not Given Guaifenesin (Diabetic Tussin Dm -) 10 ml PO Q6HPO [facility] Last Admin: 09/10/18 13:17 Dose: 10 ml Insulin Aspart (Novolog Vial Sliding Scale -) 1 vial SQ ACHS [facility]; Protocol Last Admin: 09/10/18 11:24 Dose: Not Given Insulin Detemir (Levemir Vial) 15 units SQ AM [facility] Last Admin: 09/10/18 06:34 Dose: 15 units Midodrine (Proamatine -) 5 mg PO TID-MID [facility] Last Admin: 09/10/18 13:38 Dose: 5 mg Multivit/Ca Carb/B Cmplx/FA/Prenat (Nephro-Mahi -) 1 tablet PO DAILY [facility] Last Admin: 09/10/18 09:16 Dose: 1 tablet Oxycodone HCl (Roxicodone -) 5 mg PO Q6H PRN PRN Reason: PAIN LEVEL 7 - 10 Last Admin: 09/10/18 11:46 Dose: 5 mg Sertraline HCl (Zoloft -) 25 mg PO DAILY [facility] Last Admin: 09/10/18 09:15 Dose: 25 mg Sevelamer Carbonate (Renvela -) 2,400 mg PO CM [facility] Last Admin: 09/10/18 11:47 Dose: 2,400 mg Warfarin Sodium (Coumadin -) 7.5 mg PO DAILY@1800 [facility] Last Admin: 09/09/18 17:30 Dose: Not Given 77 year old woman with hx of ESRD on HD, DM, Afib on Coumadin, CHF, Hypertension, HLD who presented with 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 #Gangrene of Foot r/o vascular insufficiency #ESRD on HD #DM #CKD related Anemia #Chronic Hypotension #Afib on Coumadin next dialysis is planned for tomorrow with UF as tolerated will continue BRAD with HD continue midodrien TID Wound care as per podiatry Thank you Alon Page DO
[2018-09-10] MEDS ORDERED: INSULIN (NOVOLOG) ASPART 100 UNITS/ML 10ML VIAL ONE ×2 (17:26→21:50)
--- NOTE | 2018-09-10 23:48 | PN ---
Progress Note, Physician Chief Complaint: no complaint History of Present Illness: dm2,esrd,pad,diabetic gangrenous ltoe,sp rt toe amputation - Current Medication List Current Medications: Active Medications Acetaminophen (Tylenol -) 650 mg PO Q6H PRN PRN Reason: FEVER Last Admin: 09/08/18 20:50 Dose: 650 mg Acetaminophen (Tylenol -) 650 mg PO Q6H PRN PRN Reason: PAIN LEVEL 1-5 Last Admin: 09/09/18 12:39 Dose: 650 mg Acetaminophen (Tylenol -) 325 mg PO Q6H PRN PRN Reason: PAIN 6-10 Last Admin: 09/09/18 22:05 Dose: 325 mg Acetylcysteine (Mucomyst 20 Oral / Inh Use Only*) 400 mg NEB RBID [facility] Last Admin: 09/10/18 21:05 Dose: Not Given Guaifenesin (Diabetic Tussin Dm -) 10 ml PO Q6HPO [facility] Last Admin: 09/10/18 17:05 Dose: 10 ml Insulin Aspart (Novolog Vial Sliding Scale -) 1 vial SQ [facility]; Protocol Last Admin: 09/10/18 17:05 Dose: 3 units Insulin Detemir (Levemir Vial) 15 units SQ AM [facility] Last Admin: 09/10/18 06:34 Dose: 15 units Midodrine (Proamatine -) 5 mg PO TID-MID [facility] Last Admin: 09/10/18 17:05 Dose: 5 mg Multivit/Ca Carb/B Cmplx/FA/Prenat (Nephro-Mahi -) 1 tablet PO DAILY [facility] Last Admin: 09/10/18 09:16 Dose: 1 tablet Oxycodone HCl (Roxicodone -) 5 mg PO Q6H PRN PRN Reason: PAIN LEVEL 7 - 10 Last Admin: 09/10/18 11:46 Dose: 5 mg Sertraline HCl (Zoloft -) 25 mg PO DAILY [facility] Last Admin: 09/10/18 09:15 Dose: 25 mg Sevelamer Carbonate (Renvela -) 2,400 mg PO CM [facility] Last Admin: 09/10/18 17:05 Dose: 2,400 mg Warfarin Sodium (Coumadin -) 7.5 mg PO DAILY@1800 [facility] Last Admin: 09/09/18 17:30 Dose: Not Given - Objective Vital Signs: Vital Signs Temperature 98.2 F 09/10/18 21:52 Pulse Rate 80 09/10/18 21:52 Respiratory Rate 20 09/10/18 21:52 Blood Pressure 130/58 L 09/10/18 21:52 O2 Sat by Pulse Oximetry (%) 98 09/09/18 20:19 Constitutional: Yes: Calm Eyes: Yes: EOM Intact HENT: Yes: Normocephalic Neck: Yes: Trachea Midline Cardiovascular: Yes: Regular Rate and Rhythm Respiratory: Yes: CTA Bilaterally Gastrointestinal: Yes: Normal Bowel Sounds ...Rectal Exam: Yes: Deferred Extremities: Yes: Delayed Capillary Refill, Erythema Edema: Yes Wound/Incision: Yes: Open to air Neurological: Yes: Alert, Oriented Labs: CBC, BMP 09/10/18 10:15 09/09/18 08:50 INR, PTT INR 3.96 (0.83-1.09) H 09/10/18 12:15 Problem List - Problems (1) Diabetes 1.5, managed as type 2 Code(s): E13.9 - OTHER SPECIFIED DIABETES MELLITUS WITHOUT COMPLICATIONS (2) Cellulitis Code(s): L03.90 - CELLULITIS, UNSPECIFIED (3) Gangrene Code(s): I96 - GANGRENE, NOT ELSEWHERE CLASSIFIED (4) Penicillin allergy Code(s): Z88.0 - ALLERGY STATUS TO PENICILLIN (5) Acute electrocardiogram changes Code(s): R94.31 - ABNORMAL ELECTROCARDIOGRAM [ECG] [EKG] (6) Anemia Code(s): D64.9 - ANEMIA, UNSPECIFIED Qualifiers: Anemia type: other cause Other causes of anemia: chronic disease, kidney (7) Atrial fibrillation Code(s): I48.91 - UNSPECIFIED ATRIAL FIBRILLATION Qualifiers: Atrial fibrillation type: chronic Qualified Code(s): I48.2 - Chronic atrial fibrillation (8) Type 2 diabetes mellitus with diabetic peripheral angiopathy without gangrene Code(s): E11.51 - TYPE 2 DIABETES W DIABETIC PERIPHERAL ANGIOPATH W/O GANGRENE Assessment/Plan Current Active Problems Cellulitis (Acute) Diabetes 1.5, managed as type 2 (Acute) Gangrene (Acute) Pancreatic cyst (Acute) Penicillin allergy (Acute) Type 2 diabetes mellitus with diabetic peripheral angiopathy without gangrene ( Acute) Abnormal Lab Results 09/10/18 09/10/18 10:15 12:15 RBC 3.01 L Hgb 9.4 L Hct 28.7 L PT with INR 47.40 H INR 3.96 H Laboratory Tests 09/10/18 09/10/18 09/10/18 05:46 11:19 16:24 POC Glucometer 96 145 184 09/10/18 21:07 POC Glucometer 151 plan: bgm qid novolog insulin low dose levemir 15 as appetie is less
[2018-09-11] MEDS: guaiFENesin/D-M SUGAR-FREE/ACLHOL-FREE 118 ML BOTTLE PO SCH ×4 (00:25→17:06)
[2018-09-11] MEDS: INSULIN (LEVEMIR) 100 UNITS/ML UNITS SQ SCH (06:38)
[2018-09-11] MEDS: INSULIN SLIDING SCALE (NOVOLOG) 1 VIAL SQ SCH ×4 (06:38→22:04)
[2018-09-11] MEDS ORDERED: SODIUM CHLORIDE 250 ML IV PRN (08:15)
[2018-09-11] MEDS: SEVELAMER CARBONATE 800 MG TAB (FP) PO SCH ×3 (08:20→17:02)
[2018-09-11] MEDS: ACETYLCYSTEINE 20% 200MG/ML 4 ML VIAL *FOR ORAL / INH USE ONLY NEB SCH ×2 (08:40→21:03)
--- NOTE | 2018-09-11 08:45 | PN ---
Progress Note (short form) - Note Progress Note: POD#7. No pain. vss, Tmax 98.4 +dressing clean dry and intact, wbc=7.0, +dusky appearance left big toe, early gangarene left foot Continue betadine dressings to right foot. Pt may have BRP. Patient can be dc to home and return for daily HBO as this would be most beneficial to her healing the feet. Will follow till dc.
[2018-09-11 08:51] LABS: HEMATOCRIT 28.3 % (32.4-45.2); HEMOGLOBIN 9.3 GM/dL (10.7-15.3); MCHC 32.8 g/dl (32.0-36.0); MEAN CELL VOLUME 94.4 fl (80-96); MEAN PLT VOLUME 8.8 fl (7.5-11.1); PLATELET COUNT 274 K/MM3 (134-434); RDW 15.6 % (11.6-15.6); WHITE BLOOD COUNT 7.6 K/mm3 (4.0-10.0)
[2018-09-11 09:19] LABS: ALBUMIN 2.2 g/dl (3.4-5.0); ALK PHOS 62 U/L (45-117); ANION GAP 10 MMOL/L (8-16); BILIRUBIN,TOTAL 0.4 mg/dL (0.2-1); BLOOD UREA NITROGEN 48 mg/dL (7-18); CALCIUM 7.9 mg/dL (8.5-10.1); CHLORIDE 98 mmol/L (98-107); CO2 28 mmol/L (21-32); GLUCOSE,RANDOM 135 mg/dL (74-106); PHOSPHOROUS 4.2 mg/dL (2.5-4.9); POTASSIUM 4.3 mmol/L (3.5-5.1); SGOT/AST 12 U/L (15-37); SGPT/ALT 9 U/L (13-61); SODIUM 136 mmol/L (136-145); TOT PROT 5.7 g/dl (6.4-8.2)
[2018-09-11 10:20] LABS: CREATININE 7.6 mg/dL (0.55-1.3)
[2018-09-11 11:29] LABS: INR 3.61 (0.83-1.09); PROTHROMBIN TIME (PATIENT) 43.1 SEC (9.7-13.0)
--- NOTE | 2018-09-11 12:42 | PN ---
Progress Note (short form) - Note Progress Note: Renal follow up for ESRD on HD Pt seen and examined during dialysis awake and alert no acute complaints AVF with good flow no sob, cp, abd pain, fever, chills has some pain in right foot Vital Signs Temperature 98.6 F 09/11/18 09:03 Pulse Rate 86 09/11/18 09:03 Respiratory Rate 18 09/11/18 09:03 Blood Pressure 118/60 09/11/18 09:03 O2 Sat by Pulse Oximetry (%) 98 09/09/18 20:19 Intake & Output 09/08/18 09/09/18 09/10/18 09/11/18 23:59 23:59 23:59 23:59 Intake Total 720 445 950 100 Output Total 0 0 0 Balance 720 445 950 100 Weight 110.847 kg 110.223 kg 108.862 kg 109.458 kg NAD awake and alert irregular, no M/R CTA soft, obese, NT/ND no LE edema CBC, BMP 09/11/18 06:00 09/11/18 06:00 Current Medications Acetaminophen (Tylenol -) 650 mg PO Q6H PRN PRN Reason: FEVER Last Admin: 09/08/18 20:50 Dose: 650 mg Acetaminophen (Tylenol -) 650 mg PO Q6H PRN PRN Reason: PAIN LEVEL 1-5 Last Admin: 09/09/18 12:39 Dose: 650 mg Acetaminophen (Tylenol -) 325 mg PO Q6H PRN PRN Reason: PAIN 6-10 Last Admin: 09/09/18 22:05 Dose: 325 mg Acetylcysteine (Mucomyst 20 Oral / Inh Use Only*) 400 mg NEB RBID [facility] Last Admin: 09/11/18 08:40 Dose: Not Given Epoetin Denis (Epogen -) 10,000 unit IVPUSH ONCE ONE Stop: 09/11/18 08:16 Guaifenesin (Diabetic Tussin Dm -) 10 ml PO Q6HPO [facility] Last Admin: 09/11/18 06:38 Dose: Not Given Sodium Chloride (Normal Saline -) 250 mls @ 3,000 mls/hr IV PRN PRN PRN Reason: Hypotension during Dialysis Stop: 09/12/18 08:15 Insulin Aspart (Novolog Vial Sliding Scale -) [address] [facility]; Protocol Last Admin: 09/11/18 06:38 Dose: Not Given Insulin Detemir (Levemir Vial) 15 units SQ AM [facility] Last Admin: 09/11/18 06:38 Dose: 15 units Midodrine (Proamatine -) 5 mg PO TID-MID [facility] Last Admin: 09/10/18 17:05 Dose: 5 mg Multivit/Ca Carb/B Cmplx/FA/Prenat (Nephro-Mahi -) 1 tablet PO DAILY [facility] Last Admin: 09/10/18 09:16 Dose: 1 tablet Oxycodone HCl (Roxicodone -) 5 mg PO Q6H PRN PRN Reason: PAIN LEVEL 7 - 10 Last Admin: 09/10/18 11:46 Dose: 5 mg Sertraline HCl (Zoloft -) 25 mg PO DAILY [facility] Last Admin: 09/10/18 09:15 Dose: 25 mg Sevelamer Carbonate (Renvela -) 2,400 mg PO CM [facility] Last Admin: 09/11/18 08:20 Dose: 2,400 mg Warfarin Sodium (Coumadin -) 7.5 mg PO DAILY@1800 [facility] Last Admin: 09/09/18 17:30 Dose: Not Given 77 year old woman with hx of ESRD on HD, DM, Afib on Coumadin, CHF, Hypertension, HLD who presented with 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 #Gangrene of Foot r/o vascular insufficiency #ESRD on HD #DM #CKD related Anemia #Chronic Hypotension #Afib on Coumadin tolerating dialysis well today will continue HD 3x weekly continue wound care as per podiatry discharge planning as per primary will continue BRAD with HD Thank you Alon Page DO
[2018-09-11] MEDS ORDERED: EPOETIN ALFA 10,000 UNIT/1 ML VIAL IVPUSH ONE (13:30)
[2018-09-11] MEDS: oxyCODONE HCL 5 MG TABLET PO PRN (14:19)
[2018-09-11] MEDS: ACETAMINOPHEN 325 MG TABLET (FP) PO PRN (14:19)
[2018-09-11] MEDS: MIDODRINE HCL 5 MG TABLET PO SCH ×4 (14:20→17:06)
[2018-09-11] MEDS: SERTRALINE HCL 25 MG TABLET (FP) PO SCH (14:20)
[2018-09-11] MEDS: VITAMIN B COMP W-C 1 EA TABLET PO SCH (14:20)
--- NOTE | 2018-09-11 16:53 | DS ---
Physical Examination Vital Signs: Vital Signs Temperature 97.8 F 09/11/18 14:37 Pulse Rate 93 H 09/11/18 14:37 Respiratory Rate 18 09/11/18 14:07 Blood Pressure 73/46 L 09/11/18 14:37 O2 Sat by Pulse Oximetry (%) 98 09/09/18 20:19 Findings/Remarks: Patient is 77 y/o female with past medical history of ESRD (M-W-F), DM, A-fib ( on Coumadin), CHF, HTN, HLD. Patient presented to ER from [employer] for gangrene to digits of R foot. Patient states she noticed the discoloration to her toes for 1 week. WHile in patient she was followed by podiatry and vascular. Patient underwent TMA R foot digit 1-5 and noted with gangrene to L foot 1st digit. Constitutional: Yes: No Distress, Calm Eyes: Yes: Conjunctiva Clear HENT: Yes: Atraumatic Cardiovascular: Yes: Regular Rate and Rhythm Respiratory: Yes: Regular, CTA Bilaterally Gastrointestinal: Yes: Normal Bowel Sounds, Soft Musculoskeletal: Yes: Muscle Weakness Extremities: Yes: WNL Edema: No Wound/Incision: Yes: Dressing Dry and Intact Neurological: Yes: Alert, Oriented Psychiatric: Yes: Alert, Oriented Labs: CBC, BMP 09/11/18 06:00 09/11/18 06:00 Discharge Summary Reason For Visit: GANGRENE OF BOTH FEET Current Active Problems Cellulitis (Acute) Diabetes 1.5, managed as type 2 (Acute) Gangrene (Acute) Pancreatic cyst (Acute) Penicillin allergy (Acute) Type 2 diabetes mellitus with diabetic peripheral angiopathy without gangrene ( Acute) Procedures: Principal: TMA R foot digit 1-5. CTA Angio of Aorta with B/L LE runoff Hospital Course: see progress notes Laboratory Tests 08/20/18 08/20/18 08/20/18 17:06 17:06 17:06 WBC 13.7 H Corrected WBC (auto) RBC 3.89 Hgb 12.5 Hct 36.5 D MCV 94.0 MCH 32.1 MCHC 34.1 RDW 15.4 Plt Count 243 D MPV 8.7 Absolute Neuts (auto) 9.4 H Neutrophils % 68.5 Lymphocytes % 17.7 D Monocytes % 12.6 H Eosinophils % 0.1 Basophils % 1.1 Nucleated RBC % 0 Manual Slide Review Platelet Comment ESR PT with INR 38.40 H INR 3.22 H PTT (Actin FS) Sodium 132 L Potassium 4.0 Chloride 93 L Carbon Dioxide 26 Anion Gap 14 BUN 56 H Creatinine 8.5 H* Creat Clearance w eGFR 4.57 POC Glucometer Random Glucose 99 Hemoglobin A1c % Calcium 9.2 Phosphorus Magnesium Iron TIBC Iron Saturation Ferritin Total Bilirubin AST ALT Alkaline Phosphatase C-Reactive Protein Total Protein Albumin CA 19-9 Antigen Random Vancomycin Hep A IgM Ab Confirm Hepatitis A Ab Total Hep Bs Antigen Hep Bs Antibody Hep B Core Total Ab Hep C Ab Diagnostic Blood Type Antibody Screen 08/20/18 08/20/18 08/21/18 21:30 21:30 07:15 WBC 10.5 H Corrected WBC (auto) RBC 3.45 L Hgb 10.9 Hct 32.4 MCV 94.0 MCH 31.7 MCHC 33.7 RDW 15.4 Plt Count 213 MPV 8.6 Absolute Neuts (auto) 7.4 Neutrophils % 70.6 Lymphocytes % 14.4 Monocytes % 14.4 H Eosinophils % 0.2 D Basophils % 0.4 Nucleated RBC % 0 Manual Slide Review Platelet Comment ESR 94 H PT with INR INR PTT (Actin FS) Sodium Potassium Chloride Carbon Dioxide Anion Gap BUN Creatinine Creat Clearance w eGFR POC Glucometer Random Glucose Hemoglobin A1c % Calcium Phosphorus Magnesium Iron TIBC Iron Saturation Ferritin Total Bilirubin AST ALT Alkaline Phosphatase C-Reactive Protein 12.1 H Total Protein Albumin CA 19-9 Antigen Random Vancomycin Hep A IgM Ab Confirm Hepatitis A Ab Total Hep Bs Antigen Hep Bs Antibody Hep B Core Total Ab Hep C Ab Diagnostic Blood Type Antibody Screen 08/21/18 08/21/18 08/21/18 07:15 11:00 11:00 WBC Corrected WBC (auto) RBC Hgb Hct MCV MCH MCHC RDW Plt Count MPV Absolute Neuts (auto) Neutrophils % Lymphocytes % Monocytes % Eosinophils % Basophils % Nucleated RBC % Manual Slide Review Platelet Comment ESR PT with INR INR PTT (Actin FS) Sodium 130 L Potassium 3.8 Chloride 92 L Carbon Dioxide 28 Anion Gap 11 BUN 64 H Creatinine 9.2 H* Creat Clearance w eGFR 4.17 POC Glucometer Random Glucose 123 H Hemoglobin A1c % Calcium 8.9 Phosphorus Magnesium Iron TIBC Iron Saturation Ferritin Total Bilirubin AST ALT Alkaline Phosphatase C-Reactive Protein Total Protein Albumin CA 19-9 Antigen Random Vancomycin 12.1 L Hep A IgM Ab Confirm Hepatitis A Ab Total Hep Bs Antigen Hep Bs Antibody Hep B Core Total Ab Hep C Ab Diagnostic 0.2 Blood Type Antibody Screen 08/21/18 08/22/18 08/22/18 11:00 07:50 07:50 WBC 10.0 Corrected WBC (auto) RBC 3.36 L Hgb 10.7 Hct 31.9 L MCV 94.8 MCH 31.7 MCHC 33.5 RDW 15.5 Plt Count 222 MPV 8.6 Absolute Neuts (auto) Neutrophils % Lymphocytes % Monocytes % Eosinophils % Basophils % Nucleated RBC % Manual Slide Review Platelet Comment ESR PT with INR INR PTT (Actin FS) Sodium Potassium Chloride Carbon Dioxide Anion Gap BUN Creatinine Creat Clearance w eGFR POC Glucometer Random Glucose Hemoglobin A1c % Calcium Phosphorus Magnesium Iron TIBC Iron Saturation Ferritin Total Bilirubin AST ALT Alkaline Phosphatase C-Reactive Protein Total Protein Albumin CA 19-9 Antigen Random Vancomycin 11.8 L Hep A IgM Ab Confirm Negative Hepatitis A Ab Total Positive H Hep Bs Antigen Negative Hep Bs Antibody Reactive Hep B Core Total Ab Negative Hep C Ab Diagnostic Blood Type Antibody Screen 08/22/18 08/22/18 08/23/18 07:50 07:50 06:13 WBC Corrected WBC (auto) RBC Hgb Hct MCV MCH MCHC RDW Plt Count MPV Absolute Neuts (auto) Neutrophils % Lymphocytes % Monocytes % Eosinophils % Basophils % Nucleated RBC % Manual Slide Review Platelet Comment ESR PT with INR 31.10 H INR 2.61 H PTT (Actin FS) Sodium 138 Potassium 4.6 Chloride 99 Carbon Dioxide 30 Anion Gap 9 BUN 48 H Creatinine 7.1 H Creat Clearance w eGFR 5.63 POC Glucometer 138 Random Glucose 153 H Hemoglobin A1c % Calcium 9.0 Phosphorus Magnesium Iron TIBC Iron Saturation Ferritin Total Bilirubin 0.4 AST 9 L ALT 12 L Alkaline Phosphatase 65 C-Reactive Protein Total Protein 6.7 Albumin 2.8 L CA 19-9 Antigen Random Vancomycin Hep A IgM Ab Confirm Hepatitis A Ab Total Hep Bs Antigen Hep Bs Antibody Hep B Core Total Ab Hep C Ab Diagnostic Blood Type Antibody Screen 08/23/18 08/23/18 08/23/18 07:16 11:51 16:50 WBC Corrected WBC (auto) RBC Hgb Hct MCV MCH MCHC RDW Plt Count MPV Absolute Neuts (auto) Neutrophils % Lymphocytes % Monocytes % Eosinophils % Basophils % Nucleated RBC % Manual Slide Review Platelet Comment ESR PT with INR 22.40 H INR 1.89 H PTT (Actin FS) Sodium Potassium Chloride Carbon Dioxide Anion Gap BUN Creatinine Creat Clearance w eGFR POC Glucometer 120 169 Random Glucose Hemoglobin A1c % Calcium Phosphorus Magnesium Iron TIBC Iron Saturation Ferritin Total Bilirubin AST ALT Alkaline Phosphatase C-Reactive Protein Total Protein Albumin CA 19-9 Antigen Random Vancomycin Hep A IgM Ab Confirm Hepatitis A Ab Total Hep Bs Antigen Hep Bs Antibody Hep B Core Total Ab Hep C Ab Diagnostic Blood Type Antibody Screen 08/23/18 08/23/18 08/23/18 19:30 19:30 23:27 WBC 11.6 H Corrected WBC (auto) RBC 3.32 L Hgb 10.6 L Hct 31.2 L MCV 93.9 MCH 31.9 MCHC 33.9 RDW 15.0 Plt Count 228 MPV 8.8 Absolute Neuts (auto) Neutrophils % Lymphocytes % Monocytes % Eosinophils % Basophils % Nucleated RBC % Manual Slide Review Platelet Comment ESR PT with INR INR PTT (Actin FS) Sodium 132 L Potassium 4.3 Chloride 95 L Carbon Dioxide 23 Anion Gap 15 BUN 89 H Creatinine 9.6 H* Creat Clearance w eGFR 3.97 POC Glucometer 153 Random Glucose 193 H Hemoglobin A1c % Calcium 8.8 Phosphorus 3.1 Magnesium Iron TIBC Iron Saturation Ferritin Total Bilirubin AST ALT Alkaline Phosphatase C-Reactive Protein Total Protein Albumin CA 19-9 Antigen Random Vancomycin Hep A IgM Ab Confirm Hepatitis A Ab Total Hep Bs Antigen Hep Bs Antibody Hep B Core Total Ab Hep C Ab Diagnostic Blood Type Antibody Screen 08/24/18 08/24/18 08/24/18 06:00 06:00 06:00 WBC 10.9 H Corrected WBC (auto) RBC 3.20 L Hgb 10.4 L Hct 30.1 L MCV 94.1 MCH 32.4 MCHC 34.5 RDW 15.0 Plt Count 235 MPV 8.6 Absolute Neuts (auto) Neutrophils % Lymphocytes % Monocytes % Eosinophils % Basophils % Nucleated RBC % Manual Slide Review Platelet Comment ESR PT with INR INR PTT (Actin FS) Sodium 138 Potassium 4.2 Chloride 99 Carbon Dioxide 28 Anion Gap 10 BUN 63 H Creatinine 7.4 H* Creat Clearance w eGFR 5.37 POC Glucometer Random Glucose 87 Hemoglobin A1c % 6.1 Calcium 8.6 Phosphorus Magnesium Iron TIBC Iron Saturation Ferritin Total Bilirubin 0.4 AST 11 L ALT 11 L Alkaline Phosphatase 69 C-Reactive Protein Total Protein 6.1 L Albumin 2.5 L CA 19-9 Antigen Random Vancomycin Hep A IgM Ab Confirm Hepatitis A Ab Total Hep Bs Antigen Hep Bs Antibody Hep B Core Total Ab Hep C Ab Diagnostic Blood Type Antibody Screen 08/24/18 08/24/18 08/24/18 06:00 06:03 11:24 WBC Corrected WBC (auto) RBC Hgb Hct MCV MCH MCHC RDW Plt Count MPV Absolute Neuts (auto) Neutrophils % Lymphocytes % Monocytes % Eosinophils % Basophils % Nucleated RBC % Manual Slide Review Platelet Comment ESR PT with INR 28.50 H INR 2.39 H PTT (Actin FS) Sodium Potassium Chloride Carbon Dioxide Anion Gap BUN Creatinine Creat Clearance w eGFR POC Glucometer 74 188 Random Glucose Hemoglobin A1c % Calcium Phosphorus Magnesium Iron TIBC Iron Saturation Ferritin Total Bilirubin AST ALT Alkaline Phosphatase C-Reactive Protein Total Protein Albumin CA 19-9 Antigen Random Vancomycin Hep A IgM Ab Confirm Hepatitis A Ab Total Hep Bs Antigen Hep Bs Antibody Hep B Core Total Ab Hep C Ab Diagnostic Blood Type Antibody Screen 08/24/18 08/24/18 08/25/18 16:54 22:17 05:18 WBC Corrected WBC (auto) RBC Hgb Hct MCV MCH MCHC RDW Plt Count MPV Absolute Neuts (auto) Neutrophils % Lymphocytes % Monocytes % Eosinophils % Basophils % Nucleated RBC % Manual Slide Review Platelet Comment ESR PT with INR INR PTT (Actin FS) Sodium Potassium Chloride Carbon Dioxide Anion Gap BUN Creatinine Creat Clearance w eGFR POC Glucometer 157 114 142 Random Glucose Hemoglobin A1c % Calcium Phosphorus Magnesium Iron TIBC Iron Saturation Ferritin Total Bilirubin AST ALT Alkaline Phosphatase C-Reactive Protein Total Protein Albumin CA 19-9 Antigen Random Vancomycin Hep A IgM Ab Confirm Hepatitis A Ab Total Hep Bs Antigen Hep Bs Antibody Hep B Core Total Ab Hep C Ab Diagnostic Blood Type Antibody Screen 08/25/18 08/25/18 08/25/18 07:10 07:10 07:10 WBC 11.8 H Corrected WBC (auto) RBC 3.35 L Hgb 10.8 Hct 31.8 L MCV 94.9 MCH 32.3 MCHC 34.0 RDW 15.1 Plt Count 237 MPV 9.0 Absolute Neuts (auto) Neutrophils % Lymphocytes % Monocytes % Eosinophils % Basophils % Nucleated RBC % Manual Slide Review Platelet Comment ESR PT with INR 48.40 H INR 4.04 H* PTT (Actin FS) Sodium 136 Potassium 4.5 Chloride 97 L Carbon Dioxide 27 Anion Gap 12 BUN 60 H Creatinine 7.2 H Creat Clearance w eGFR 5.54 POC Glucometer Random Glucose 136 H Hemoglobin A1c % Calcium 8.6 Phosphorus Magnesium Iron TIBC Iron Saturation Ferritin Total Bilirubin 0.3 AST 10 L ALT 11 L Alkaline Phosphatase 81 C-Reactive Protein Total Protein 6.4 Albumin 2.7 L CA 19-9 Antigen Random Vancomycin Hep A IgM Ab Confirm Hepatitis A Ab Total Hep Bs Antigen Hep Bs Antibody Hep B Core Total Ab Hep C Ab Diagnostic Blood Type Antibody Screen 08/25/18 08/25/18 08/25/18 11:31 16:41 21:39 WBC Corrected WBC (auto) RBC Hgb Hct MCV MCH MCHC RDW Plt Count MPV Absolute Neuts (auto) Neutrophils % Lymphocytes % Monocytes % Eosinophils % Basophils % Nucleated RBC % Manual Slide Review Platelet Comment ESR PT with INR INR PTT (Actin FS) Sodium Potassium Chloride Carbon Dioxide Anion Gap BUN Creatinine Creat Clearance w eGFR POC Glucometer 186 94 154 Random Glucose Hemoglobin A1c % Calcium Phosphorus Magnesium Iron TIBC Iron Saturation Ferritin Total Bilirubin AST ALT Alkaline Phosphatase C-Reactive Protein Total Protein Albumin CA 19-9 Antigen Random Vancomycin Hep A IgM Ab Confirm Hepatitis A Ab Total Hep Bs Antigen Hep Bs Antibody Hep B Core Total Ab Hep C Ab Diagnostic Blood Type Antibody Screen 08/26/18 08/26/18 08/26/18 05:16 06:15 06:15 WBC 12.4 H Corrected WBC (auto) RBC 3.35 L Hgb 10.6 L Hct 31.4 L MCV 93.6 MCH 31.7 MCHC 33.9 RDW 14.7 Plt Count 254 MPV 8.3 Absolute Neuts (auto) Neutrophils % Lymphocytes % Monocytes % Eosinophils % Basophils % Nucleated RBC % Manual Slide Review Platelet Comment ESR PT with INR INR PTT (Actin FS) Sodium 134 L Potassium 4.5 Chloride 96 L Carbon Dioxide 27 Anion Gap 11 BUN 87 H Creatinine 8.6 H* Creat Clearance w eGFR 4.51 POC Glucometer 89 Random Glucose 112 H Hemoglobin A1c % Calcium 8.6 Phosphorus Magnesium Iron TIBC Iron Saturation Ferritin Total Bilirubin 0.4 AST 11 L ALT 11 L Alkaline Phosphatase 82 C-Reactive Protein Total Protein 6.1 L Albumin 2.6 L CA 19-9 Antigen Random Vancomycin Hep A IgM Ab Confirm Hepatitis A Ab Total Hep Bs Antigen Hep Bs Antibody Hep B Core Total Ab Hep C Ab Diagnostic Blood Type Antibody Screen 08/26/18 08/26/1808/26/19 06:15 11:27 17:01 WBC Corrected WBC (auto) RBC Hgb Hct MCV MCH MCHC RDW Plt Count MPV Absolute Neuts (auto) Neutrophils % Lymphocytes % Monocytes % Eosinophils % Basophils % Nucleated RBC % Manual Slide Review Platelet Comment ESR PT with INR 54.30 H INR 4.53 H* PTT (Actin FS) Sodium Potassium Chloride Carbon Dioxide Anion Gap BUN Creatinine Creat Clearance w eGFR POC Glucometer 184 184 Random Glucose Hemoglobin A1c % Calcium Phosphorus Magnesium Iron TIBC Iron Saturation Ferritin Total Bilirubin AST ALT Alkaline Phosphatase C-Reactive Protein Total Protein Albumin CA 19-9 Antigen Random Vancomycin Hep A IgM Ab Confirm Hepatitis A Ab Total Hep Bs Antigen Hep Bs Antibody Hep B Core Total Ab Hep C Ab Diagnostic Blood Type Antibody Screen 08/26/18 08/27/18 08/27/18 22:16 06:34 11:46 WBC Corrected WBC (auto) RBC Hgb Hct MCV MCH MCHC RDW Plt Count MPV Absolute Neuts (auto) Neutrophils % Lymphocytes % Monocytes % Eosinophils % Basophils % Nucleated RBC % Manual Slide Review Platelet Comment ESR PT with INR INR PTT (Actin FS) Sodium Potassium Chloride Carbon Dioxide Anion Gap BUN Creatinine Creat Clearance w eGFR POC Glucometer 149 137 183 Random Glucose Hemoglobin A1c % Calcium Phosphorus Magnesium Iron TIBC Iron Saturation Ferritin Total Bilirubin AST ALT Alkaline Phosphatase C-Reactive Protein Total Protein Albumin CA 19-9 Antigen Random Vancomycin Hep A IgM Ab Confirm Hepatitis A Ab Total Hep Bs Antigen Hep Bs Antibody Hep B Core Total Ab Hep C Ab Diagnostic Blood Type Antibody Screen 08/27/18 08/27/18 08/28/18 17:19 21:29 05:50 WBC Corrected WBC (auto) RBC Hgb Hct MCV MCH MCHC RDW Plt Count MPV Absolute Neuts (auto) Neutrophils % Lymphocytes % Monocytes % Eosinophils % Basophils % Nucleated RBC % Manual Slide Review Platelet Comment ESR PT with INR INR PTT (Actin FS) Sodium Potassium Chloride Carbon Dioxide Anion Gap BUN Creatinine Creat Clearance w eGFR POC Glucometer 112 177 86 Random Glucose Hemoglobin A1c % Calcium Phosphorus Magnesium Iron TIBC Iron Saturation Ferritin Total Bilirubin AST ALT Alkaline Phosphatase C-Reactive Protein Total Protein Albumin CA 19-9 Antigen Random Vancomycin Hep A IgM Ab Confirm Hepatitis A Ab Total Hep Bs Antigen Hep Bs Antibody Hep B Core Total Ab Hep C Ab Diagnostic Blood Type Antibody Screen 08/28/18 08/28/18 08/28/18 06:00 06:00 06:00 WBC Corrected WBC (auto) RBC Hgb Hct MCV MCH MCHC RDW Plt Count MPV Absolute Neuts (auto) Neutrophils % Lymphocytes % Monocytes % Eosinophils % Basophils % Nucleated RBC % Manual Slide Review Platelet Comment ESR PT with INR 41.40 H INR 3.46 H PTT (Actin FS) Sodium Potassium Chloride Carbon Dioxide Anion Gap BUN Creatinine Creat Clearance w eGFR POC Glucometer Random Glucose Hemoglobin A1c % Calcium Phosphorus Magnesium Iron 57 TIBC 93 L Iron Saturation 61 H Ferritin Total Bilirubin AST ALT Alkaline Phosphatase C-Reactive Protein Total Protein Albumin CA 19-9 Antigen Random Vancomycin 10.4 L Hep A IgM Ab Confirm Hepatitis A Ab Total Hep Bs Antigen Hep Bs Antibody Hep B Core Total Ab Hep C Ab Diagnostic Blood Type Antibody Screen 08/28/18 08/28/18 08/28/18 06:00 06:00 16:42 WBC 10.8 H Corrected WBC (auto) RBC 3.35 L Hgb 10.8 Hct 31.6 L MCV 94.5 MCH 32.2 MCHC 34.1 RDW 14.8 Plt Count 250 MPV 8.9 Absolute Neuts (auto) Neutrophils % Lymphocytes % Monocytes % Eosinophils % Basophils % Nucleated RBC % Manual Slide Review Platelet Comment ESR PT with INR INR PTT (Actin FS) Sodium 136 Potassium 4.2 Chloride 97 L Carbon Dioxide 27 Anion Gap 12 BUN 76 H Creatinine 8.4 H* Creat Clearance w eGFR 4.64 POC Glucometer 267 Random Glucose 92 Hemoglobin A1c % Calcium 8.5 Phosphorus 5.1 H Magnesium Iron TIBC Iron Saturation Ferritin 1595.4 H Total Bilirubin AST ALT Alkaline Phosphatase C-Reactive Protein Total Protein Albumin CA 19-9 Antigen Random Vancomycin Hep A IgM Ab Confirm Hepatitis A Ab Total Hep Bs Antigen Hep Bs Antibody Hep B Core Total Ab Hep C Ab Diagnostic Blood Type Antibody Screen 08/28/18 08/29/18 08/29/18 21:57 06:43 08:07 WBC Corrected WBC (auto) RBC Hgb Hct MCV MCH MCHC RDW Plt Count MPV Absolute Neuts (auto) Neutrophils % Lymphocytes % Monocytes % Eosinophils % Basophils % Nucleated RBC % Manual Slide Review Platelet Comment ESR PT with INR 25.70 H INR 2.16 H PTT (Actin FS) Sodium Potassium Chloride Carbon Dioxide Anion Gap BUN Creatinine Creat Clearance w eGFR POC Glucometer 106 118 Random Glucose Hemoglobin A1c % Calcium Phosphorus Magnesium Iron TIBC Iron Saturation Ferritin Total Bilirubin AST ALT Alkaline Phosphatase C-Reactive Protein Total Protein Albumin CA 19-9 Antigen Random Vancomycin Hep A IgM Ab Confirm Hepatitis A Ab Total Hep Bs Antigen Hep Bs Antibody Hep B Core Total Ab Hep C Ab Diagnostic Blood Type Antibody Screen 08/29/18 08/29/18 08/29/18 08:07 08:07 11:13 WBC 12.4 H Corrected WBC (auto) RBC 3.56 L Hgb 10.9 Hct 33.5 MCV 94.0 MCH 30.7 MCHC 32.6 RDW 15.1 Plt Count 265 MPV 8.6 Absolute Neuts (auto) 8.7 H Neutrophils % 70.5 Lymphocytes % 17.4 D Monocytes % 11.5 H Eosinophils % 0.1 Basophils % 0.5 Nucleated RBC % 0 Manual Slide Review Platelet Comment ESR PT with INR INR PTT (Actin FS) Sodium 138 Potassium 4.1 Chloride 100 Carbon Dioxide 27 Anion Gap 11 BUN 44 H Creatinine 6.9 H Creat Clearance w eGFR 5.82 POC Glucometer 181 Random Glucose 144 H Hemoglobin A1c % Calcium 8.3 L Phosphorus Magnesium Iron TIBC Iron Saturation Ferritin Total Bilirubin 0.5 AST 11 L ALT 9 L Alkaline Phosphatase 92 C-Reactive Protein Total Protein 6.7 Albumin 2.8 L CA 19-9 Antigen Random Vancomycin Hep A IgM Ab Confirm Hepatitis A Ab Total Hep Bs Antigen Hep Bs Antibody Hep B Core Total Ab Hep C Ab Diagnostic Blood Type Antibody Screen 08/29/18 08/29/18 08/29/18 16:57 17:00 17:00 WBC Corrected WBC (auto) RBC Hgb Hct MCV MCH MCHC RDW Plt Count MPV Absolute Neuts (auto) Neutrophils % Lymphocytes % Monocytes % Eosinophils % Basophils % Nucleated RBC % Manual Slide Review Platelet Comment ESR PT with INR 24.60 H INR 2.07 H PTT (Actin FS) 49.9 H Sodium Potassium Chloride Carbon Dioxide Anion Gap BUN Creatinine Creat Clearance w eGFR POC Glucometer 110 Random Glucose Hemoglobin A1c % Calcium Phosphorus Magnesium Iron TIBC Iron Saturation Ferritin Total Bilirubin AST ALT Alkaline Phosphatase C-Reactive Protein Total Protein Albumin CA 19-9 Antigen Random Vancomycin Hep A IgM Ab Confirm Hepatitis A Ab Total Hep Bs Antigen Hep Bs Antibody Hep B Core Total Ab Hep C Ab Diagnostic Blood Type Antibody Screen 08/29/18 08/30/18 08/30/18 21:19 05:16 07:45 WBC Corrected WBC (auto) RBC Hgb Hct MCV MCH MCHC RDW Plt Count MPV Absolute Neuts (auto) Neutrophils % Lymphocytes % Monocytes % Eosinophils % Basophils % Nucleated RBC % Manual Slide Review Platelet Comment ESR PT with INR Cancelled INR Cancelled PTT (Actin FS) Sodium Potassium Chloride Carbon Dioxide Anion Gap BUN Creatinine Creat Clearance w eGFR POC Glucometer 165 89 Random Glucose Hemoglobin A1c % Calcium Phosphorus Magnesium Iron TIBC Iron Saturation Ferritin Total Bilirubin AST ALT Alkaline Phosphatase C-Reactive Protein Total Protein Albumin CA 19-9 Antigen Random Vancomycin Hep A IgM Ab Confirm Hepatitis A Ab Total Hep Bs Antigen Hep Bs Antibody Hep B Core Total Ab Hep C Ab Diagnostic Blood Type Antibody Screen 08/30/18 08/30/18 08/30/18 07:45 11:27 17:34 WBC Corrected WBC (auto) RBC Hgb Hct MCV MCH MCHC RDW Plt Count MPV Absolute Neuts (auto) Neutrophils % Lymphocytes % Monocytes % Eosinophils % Basophils % Nucleated RBC % Manual Slide Review Platelet Comment ESR PT with INR 20.70 H INR 1.74 H PTT (Actin FS) 42.3 H Sodium Potassium Chloride Carbon Dioxide Anion Gap BUN Creatinine Creat Clearance w eGFR POC Glucometer 113 111 Random Glucose Hemoglobin A1c % Calcium Phosphorus Magnesium Iron TIBC Iron Saturation Ferritin Total Bilirubin AST ALT Alkaline Phosphatase C-Reactive Protein Total Protein Albumin CA 19-9 Antigen Random Vancomycin Hep A IgM Ab Confirm Hepatitis A Ab Total Hep Bs Antigen Hep Bs Antibody Hep B Core Total Ab Hep C Ab Diagnostic Blood Type Antibody Screen 08/30/18 08/31/18 08/31/18 21:12 05:30 05:30 WBC Corrected WBC (auto) RBC Hgb Hct MCV MCH MCHC RDW Plt Count MPV Absolute Neuts (auto) Neutrophils % Lymphocytes % Monocytes % Eosinophils % Basophils % Nucleated RBC % Manual Slide Review Platelet Comment ESR PT with INR 23.60 H INR 1.99 H PTT (Actin FS) 81.3 H Sodium Potassium Chloride Carbon Dioxide Anion Gap BUN Creatinine Creat Clearance w eGFR POC Glucometer 184 Random Glucose Hemoglobin A1c % Calcium Phosphorus Magnesium Iron TIBC Iron Saturation Ferritin Total Bilirubin AST ALT Alkaline Phosphatase C-Reactive Protein Total Protein Albumin CA 19-9 Antigen Random Vancomycin Hep A IgM Ab Confirm Hepatitis A Ab Total Hep Bs Antigen Hep Bs Antibody Hep B Core Total Ab Hep C Ab Diagnostic Blood Type Antibody Screen 08/31/18 08/31/18 08/31/18 05:55 08:40 11:15 WBC 6.1 Corrected WBC (auto) RBC 3.27 L Hgb 10.2 L Hct 30.8 L MCV 94.0 MCH 31.3 MCHC 33.3 RDW 14.9 Plt Count 188 D MPV 8.8 Absolute Neuts (auto) Neutrophils % Lymphocytes % Monocytes % Eosinophils % Basophils % Nucleated RBC % Manual Slide Review Platelet Comment ESR PT with INR INR PTT (Actin FS) Sodium 132 L Potassium 4.0 Chloride 97 L Carbon Dioxide 20 L Anion Gap 14 BUN 67 H Creatinine 9.7 H* Creat Clearance w eGFR 3.93 POC Glucometer 137 Random Glucose 190 H Hemoglobin A1c % Calcium 8.1 L Phosphorus 4.4 Magnesium 2.2 Iron TIBC Iron Saturation Ferritin Total Bilirubin 0.5 AST 17 ALT 9 L Alkaline Phosphatase 68 C-Reactive Protein Total Protein 6.0 L Albumin 2.4 L CA 19-9 Antigen Random Vancomycin Hep A IgM Ab Confirm Hepatitis A Ab Total Hep Bs Antigen Hep Bs Antibody Hep B Core Total Ab Hep C Ab Diagnostic Blood Type Antibody Screen 08/31/18 08/31/18 09/01/18 16:31 21:18 06:00 WBC Corrected WBC (auto) RBC Hgb Hct MCV MCH MCHC RDW Plt Count MPV Absolute Neuts (auto) Neutrophils % Lymphocytes % Monocytes % Eosinophils % Basophils % Nucleated RBC % Manual Slide Review Platelet Comment ESR PT with INR 20.40 H INR 1.72 H PTT (Actin FS) Sodium Potassium Chloride Carbon Dioxide Anion Gap BUN Creatinine Creat Clearance w eGFR POC Glucometer 249 148 Random Glucose Hemoglobin A1c % Calcium Phosphorus Magnesium Iron TIBC Iron Saturation Ferritin Total Bilirubin AST ALT Alkaline Phosphatase C-Reactive Protein Total Protein Albumin CA 19-9 Antigen Random Vancomycin Hep A IgM Ab Confirm Hepatitis A Ab Total Hep Bs Antigen Hep Bs Antibody Hep B Core Total Ab Hep C Ab Diagnostic Blood Type Antibody Screen 09/01/18 09/01/18 09/01/18 06:00 06:00 06:07 WBC 4.8 Corrected WBC (auto) RBC 3.00 L Hgb 9.3 L Hct 28.6 L MCV 95.4 MCH 30.9 MCHC 32.4 RDW 15.0 Plt Count 173 MPV 9.1 Absolute Neuts (auto) Neutrophils % Lymphocytes % Monocytes % Eosinophils % Basophils % Nucleated RBC % Manual Slide Review Platelet Comment ESR PT with INR INR PTT (Actin FS) 64.2 H Sodium Potassium Chloride Carbon Dioxide Anion Gap BUN Creatinine Creat Clearance w eGFR POC Glucometer 144 Random Glucose Hemoglobin A1c % Calcium Phosphorus Magnesium Iron TIBC Iron Saturation Ferritin Total Bilirubin AST ALT Alkaline Phosphatase C-Reactive Protein Total Protein Albumin CA 19-9 Antigen Random Vancomycin Hep A IgM Ab Confirm Hepatitis A Ab Total Hep Bs Antigen Hep Bs Antibody Hep B Core Total Ab Hep C Ab Diagnostic Blood Type Antibody Screen 09/01/18 09/01/18 09/01/18 10:35 16:14 22:15 WBC Corrected WBC (auto) RBC Hgb Hct MCV MCH MCHC RDW Plt Count MPV Absolute Neuts (auto) Neutrophils % Lymphocytes % Monocytes % Eosinophils % Basophils % Nucleated RBC % Manual Slide Review Platelet Comment ESR PT with INR INR PTT (Actin FS) Sodium Potassium Chloride Carbon Dioxide Anion Gap BUN Creatinine Creat Clearance w eGFR POC Glucometer 240 137 208 Random Glucose Hemoglobin A1c % Calcium Phosphorus Magnesium Iron TIBC Iron Saturation Ferritin Total Bilirubin AST ALT Alkaline Phosphatase C-Reactive Protein Total Protein Albumin CA 19-9 Antigen Random Vancomycin Hep A IgM Ab Confirm Hepatitis A Ab Total Hep Bs Antigen Hep Bs Antibody Hep B Core Total Ab Hep C Ab Diagnostic Blood Type Antibody Screen 09/02/18 09/02/18 09/02/18 06:00 06:00 06:00 WBC 5.4 Cancelled Corrected WBC (auto) Cancelled RBC 3.11 L Cancelled Hgb 9.4 L Cancelled Hct 29.2 L Cancelled MCV 94.0 Cancelled MCH 30.3 Cancelled MCHC 32.2 Cancelled RDW 15.0 Cancelled Plt Count 171 Cancelled MPV 9.0 Cancelled Absolute Neuts (auto) Neutrophils % Lymphocytes % Monocytes % Eosinophils % Basophils % Nucleated RBC % Manual Slide Review Cancelled Platelet Comment Cancelled ESR PT with INR INR PTT (Actin FS) Sodium Potassium Chloride Carbon Dioxide Anion Gap BUN Creatinine Creat Clearance w eGFR POC Glucometer Random Glucose Hemoglobin A1c % Calcium Phosphorus Magnesium Iron TIBC Iron Saturation Ferritin Total Bilirubin AST ALT Alkaline Phosphatase C-Reactive Protein Total Protein Albumin CA 19-9 Antigen Random Vancomycin 22.9 Hep A IgM Ab Confirm Hepatitis A Ab Total Hep Bs Antigen Hep Bs Antibody Hep B Core Total Ab Hep C Ab Diagnostic Blood Type Antibody Screen 09/02/18 09/02/18 09/02/18 06:00 06:42 14:25 WBC Corrected WBC (auto) RBC Hgb Hct MCV MCH MCHC RDW Plt Count MPV Absolute Neuts (auto) Neutrophils % Lymphocytes % Monocytes % Eosinophils % Basophils % Nucleated RBC % Manual Slide Review Platelet Comment ESR PT with INR INR PTT (Actin FS) 68.6 H Sodium Potassium Chloride Carbon Dioxide Anion Gap BUN Creatinine Creat Clearance w eGFR POC Glucometer 136 145 Random Glucose Hemoglobin A1c % Calcium Phosphorus Magnesium Iron TIBC Iron Saturation Ferritin Total Bilirubin AST ALT Alkaline Phosphatase C-Reactive Protein Total Protein Albumin CA 19-9 Antigen Random Vancomycin Hep A IgM Ab Confirm Hepatitis A Ab Total Hep Bs Antigen Hep Bs Antibody Hep B Core Total Ab Hep C Ab Diagnostic Blood Type Antibody Screen 09/02/18 09/02/18 09/03/18 16:38 22:12 06:00 WBC 5.5 Corrected WBC (auto) RBC 3.13 L Hgb 9.6 L Hct 29.8 L MCV 95.0 MCH 30.8 MCHC 32.4 RDW 15.1 Plt Count 163 MPV 8.9 Absolute Neuts (auto) Neutrophils % Lymphocytes % Monocytes % Eosinophils % Basophils % Nucleated RBC % Manual Slide Review Platelet Comment ESR PT with INR INR PTT (Actin FS) Sodium Potassium Chloride Carbon Dioxide Anion Gap BUN Creatinine Creat Clearance w eGFR POC Glucometer 178 135 Random Glucose Hemoglobin A1c % Calcium Phosphorus Magnesium Iron TIBC Iron Saturation Ferritin Total Bilirubin AST ALT Alkaline Phosphatase C-Reactive Protein Total Protein Albumin CA 19-9 Antigen Random Vancomycin Hep A IgM Ab Confirm Hepatitis A Ab Total Hep Bs Antigen Hep Bs Antibody Hep B Core Total Ab Hep C Ab Diagnostic Blood Type Antibody Screen 09/03/18 09/03/18 09/03/18 06:00 06:00 06:21 WBC Corrected WBC (auto) RBC Hgb Hct MCV MCH MCHC RDW Plt Count MPV Absolute Neuts (auto) Neutrophils % Lymphocytes % Monocytes % Eosinophils % Basophils % Nucleated RBC % Manual Slide Review Platelet Comment ESR PT with INR INR PTT (Actin FS) 69.9 H Sodium 139 Potassium 3.8 Chloride 103 Carbon Dioxide 27 Anion Gap 9 BUN 32 H Creatinine 6.1 H Creat Clearance w eGFR 6.71 POC Glucometer 117 Random Glucose 120 H Hemoglobin A1c % Calcium 8.3 L Phosphorus Magnesium Iron TIBC Iron Saturation Ferritin Total Bilirubin 0.4 AST 28 ALT 8 L Alkaline Phosphatase 55 C-Reactive Protein Total Protein 5.8 L Albumin 2.3 L CA 19-9 Antigen Random Vancomycin Hep A IgM Ab Confirm Hepatitis A Ab Total Hep Bs Antigen Hep Bs Antibody Hep B Core Total Ab Hep C Ab Diagnostic Blood Type Antibody Screen 09/03/18 09/03/18 09/03/18 07:00 11:03 16:44 WBC Corrected WBC (auto) RBC Hgb Hct MCV MCH MCHC RDW Plt Count MPV Absolute Neuts (auto) Neutrophils % Lymphocytes % Monocytes % Eosinophils % Basophils % Nucleated RBC % Manual Slide Review Platelet Comment ESR PT with INR 17.40 H INR 1.47 H PTT (Actin FS) Sodium Potassium Chloride Carbon Dioxide Anion Gap BUN Creatinine Creat Clearance w eGFR POC Glucometer 193 144 Random Glucose Hemoglobin A1c % Calcium Phosphorus Magnesium Iron TIBC Iron Saturation Ferritin Total Bilirubin AST ALT Alkaline Phosphatase C-Reactive Protein Total Protein Albumin CA 19-9 Antigen Random Vancomycin Hep A IgM Ab Confirm Hepatitis A Ab Total Hep Bs Antigen Hep Bs Antibody Hep B Core Total Ab Hep C Ab Diagnostic Blood Type Antibody Screen 09/03/18 09/04/18 09/04/18 22:23 05:30 05:30 WBC 5.7 Corrected WBC (auto) RBC 2.95 L Hgb 9.1 L Hct 27.8 L MCV 94.0 MCH 30.9 MCHC 32.9 RDW 14.5 Plt Count 168 MPV 9.2 Absolute Neuts (auto) Neutrophils % Lymphocytes % Monocytes % Eosinophils % Basophils % Nucleated RBC % Manual Slide Review Platelet Comment ESR PT with INR INR PTT (Actin FS) 40.8 H Sodium Potassium Chloride Carbon Dioxide Anion Gap BUN Creatinine Creat Clearance w eGFR POC Glucometer 149 Random Glucose Hemoglobin A1c % Calcium Phosphorus Magnesium Iron TIBC Iron Saturation Ferritin Total Bilirubin AST ALT Alkaline Phosphatase C-Reactive Protein Total Protein Albumin CA 19-9 Antigen Random Vancomycin Hep A IgM Ab Confirm Hepatitis A Ab Total Hep Bs Antigen Hep Bs Antibody Hep B Core Total Ab Hep C Ab Diagnostic Blood Type Antibody Screen 09/04/18 09/04/18 09/04/18 06:00 06:25 10:58 WBC Corrected WBC (auto) RBC Hgb Hct MCV MCH MCHC RDW Plt Count MPV Absolute Neuts (auto) Neutrophils % Lymphocytes % Monocytes % Eosinophils % Basophils % Nucleated RBC % Manual Slide Review Platelet Comment ESR PT with INR INR PTT (Actin FS) Sodium 138 Potassium 3.8 Chloride 101 Carbon Dioxide 28 Anion Gap 9 BUN 39 H Creatinine 7.6 H* Creat Clearance w eGFR 5.20 POC Glucometer 117 Random Glucose 145 H Hemoglobin A1c % Calcium 7.9 L Phosphorus 3.4 Magnesium Iron TIBC Iron Saturation Ferritin Total Bilirubin AST ALT Alkaline Phosphatase C-Reactive Protein Total Protein Albumin CA 19-9 Antigen Random Vancomycin Hep A IgM Ab Confirm Hepatitis A Ab Total Hep Bs Antigen Hep Bs Antibody Hep B Core Total Ab Hep C Ab Diagnostic Blood Type O POSITIVE Antibody Screen Negative 09/04/18 09/04/18 09/04/18 10:58 11:13 18:04 WBC 5.4 Corrected WBC (auto) RBC 2.97 L Hgb 9.2 L Hct 27.7 L MCV 93.4 MCH 31.0 MCHC 33.2 RDW 15.1 Plt Count 165 MPV 8.8 Absolute Neuts (auto) Neutrophils % Lymphocytes % Monocytes % Eosinophils % Basophils % Nucleated RBC % Manual Slide Review Platelet Comment ESR PT with INR INR PTT (Actin FS) Sodium Potassium Chloride Carbon Dioxide Anion Gap BUN Creatinine Creat Clearance w eGFR POC Glucometer 143 190 Random Glucose Hemoglobin A1c % Calcium Phosphorus Magnesium Iron TIBC Iron Saturation Ferritin Total Bilirubin AST ALT Alkaline Phosphatase C-Reactive Protein Total Protein Albumin CA 19-9 Antigen Random Vancomycin Hep A IgM Ab Confirm Hepatitis A Ab Total Hep Bs Antigen Hep Bs Antibody Hep B Core Total Ab Hep C Ab Diagnostic Blood Type Antibody Screen 09/04/18 09/05/18 09/05/18 22:17 05:56 07:45 WBC 7.3 Corrected WBC (auto) RBC 2.86 L Hgb 8.9 L Hct 26.9 L MCV 94.3 MCH 31.3 MCHC 33.2 RDW 15.1 Plt Count 164 MPV 9.6 Absolute Neuts (auto) Neutrophils % Lymphocytes % Monocytes % Eosinophils % Basophils % Nucleated RBC % Manual Slide Review Platelet Comment ESR PT with INR INR PTT (Actin FS) Sodium Potassium Chloride Carbon Dioxide Anion Gap BUN Creatinine Creat Clearance w eGFR POC Glucometer 184 178 Random Glucose Hemoglobin A1c % Calcium Phosphorus Magnesium Iron TIBC Iron Saturation Ferritin Total Bilirubin AST ALT Alkaline Phosphatase C-Reactive Protein Total Protein Albumin CA 19-9 Antigen Random Vancomycin Hep A IgM Ab Confirm Hepatitis A Ab Total Hep Bs Antigen Hep Bs Antibody Hep B Core Total Ab Hep C Ab Diagnostic Blood Type Antibody Screen 09/05/18 09/05/18 09/05/18 07:45 07:45 11:15 WBC Corrected WBC (auto) RBC Hgb Hct MCV MCH MCHC RDW Plt Count MPV Absolute Neuts (auto) Neutrophils % Lymphocytes % Monocytes % Eosinophils % Basophils % Nucleated RBC % Manual Slide Review Platelet Comment ESR PT with INR 19.90 H INR 1.68 H PTT (Actin FS) 42.5 H Sodium Potassium Chloride Carbon Dioxide Anion Gap BUN Creatinine Creat Clearance w eGFR POC Glucometer 160 Random Glucose Hemoglobin A1c % Calcium Phosphorus Magnesium Iron TIBC Iron Saturation Ferritin Total Bilirubin AST ALT Alkaline Phosphatase C-Reactive Protein Total Protein Albumin CA 19-9 Antigen 1 Random Vancomycin Hep A IgM Ab Confirm Hepatitis A Ab Total Hep Bs Antigen Hep Bs Antibody Hep B Core Total Ab Hep C Ab Diagnostic Blood Type Antibody Screen 09/05/18 09/05/18 09/06/18 16:37 23:10 06:12 WBC Corrected WBC (auto) RBC Hgb Hct MCV MCH MCHC RDW Plt Count MPV Absolute Neuts (auto) Neutrophils % Lymphocytes % Monocytes % Eosinophils % Basophils % Nucleated RBC % Manual Slide Review Platelet Comment ESR PT with INR INR PTT (Actin FS) Sodium Potassium Chloride Carbon Dioxide Anion Gap BUN Creatinine Creat Clearance w eGFR POC Glucometer 158 139 144 Random Glucose Hemoglobin A1c % Calcium Phosphorus Magnesium Iron TIBC Iron Saturation Ferritin Total Bilirubin AST ALT Alkaline Phosphatase C-Reactive Protein Total Protein Albumin CA 19-9 Antigen Random Vancomycin Hep A IgM Ab Confirm Hepatitis A Ab Total Hep Bs Antigen Hep Bs Antibody Hep B Core Total Ab Hep C Ab Diagnostic Blood Type Antibody Screen 09/06/18 09/06/18 09/06/18 06:45 06:45 06:45 WBC 9.1 Corrected WBC (auto) RBC 2.95 L Hgb 9.1 L Hct 27.8 L MCV 94.3 MCH 31.0 MCHC 32.9 RDW 15.1 Plt Count 187 MPV 9.2 Absolute Neuts (auto) Neutrophils % Lymphocytes % Monocytes % Eosinophils % Basophils % Nucleated RBC % Manual Slide Review Platelet Comment ESR PT with INR 27.80 H INR 2.34 H PTT (Actin FS) Sodium Potassium Chloride Carbon Dioxide Anion Gap BUN Creatinine Creat Clearance w eGFR POC Glucometer Random Glucose Hemoglobin A1c % Calcium Phosphorus Magnesium Iron TIBC Iron Saturation Ferritin Total Bilirubin AST ALT Alkaline Phosphatase C-Reactive Protein Total Protein Albumin CA 19-9 Antigen Random Vancomycin 22.2 Hep A IgM Ab Confirm Hepatitis A Ab Total Hep Bs Antigen Hep Bs Antibody Hep B Core Total Ab Hep C Ab Diagnostic Blood Type Antibody Screen 09/06/18 09/06/18 09/06/18 10:25 10:25 16:41 WBC 7.4 Corrected WBC (auto) RBC 2.78 L Hgb 8.6 L Hct 26.4 L MCV 94.8 MCH 31.0 MCHC 32.7 RDW 14.8 Plt Count 167 MPV 9.3 Absolute Neuts (auto) Neutrophils % Lymphocytes % Monocytes % Eosinophils % Basophils % Nucleated RBC % Manual Slide Review Platelet Comment ESR PT with INR INR PTT (Actin FS) Sodium 141 Potassium 3.5 Chloride 103 Carbon Dioxide 28 Anion Gap 10 BUN 30 H Creatinine 5.8 H Creat Clearance w eGFR 7.11 POC Glucometer 160 Random Glucose 223 H Hemoglobin A1c % Calcium 8.0 L Phosphorus 3.0 Magnesium Iron TIBC Iron Saturation Ferritin Total Bilirubin AST ALT Alkaline Phosphatase C-Reactive Protein Total Protein Albumin CA 19-9 Antigen Random Vancomycin Hep A IgM Ab Confirm Hepatitis A Ab Total Hep Bs Antigen Hep Bs Antibody Hep B Core Total Ab Hep C Ab Diagnostic Blood Type Antibody Screen 09/06/18 09/07/18 09/07/18 21:22 06:00 06:00 WBC Corrected WBC (auto) RBC Hgb Hct MCV MCH MCHC RDW Plt Count MPV Absolute Neuts (auto) Neutrophils % Lymphocytes % Monocytes % Eosinophils % Basophils % Nucleated RBC % Manual Slide Review Platelet Comment ESR PT with INR 35.80 H INR 3.00 H PTT (Actin FS) Sodium Potassium Chloride Carbon Dioxide Anion Gap BUN Creatinine Creat Clearance w eGFR POC Glucometer 99 Random Glucose Hemoglobin A1c % Calcium Phosphorus Magnesium Iron TIBC Iron Saturation Ferritin Total Bilirubin AST ALT Alkaline Phosphatase C-Reactive Protein Total Protein Albumin CA 19-9 Antigen Random Vancomycin 18.8 Hep A IgM Ab Confirm Hepatitis A Ab Total Hep Bs Antigen Hep Bs Antibody Hep B Core Total Ab Hep C Ab Diagnostic Blood Type Antibody Screen 09/07/18 09/07/18 09/07/18 06:39 11:04 16:41 WBC Corrected WBC (auto) RBC Hgb Hct MCV MCH MCHC RDW Plt Count MPV Absolute Neuts (auto) Neutrophils % Lymphocytes % Monocytes % Eosinophils % Basophils % Nucleated RBC % Manual Slide Review Platelet Comment ESR PT with INR INR PTT (Actin FS) Sodium Potassium Chloride Carbon Dioxide Anion Gap BUN Creatinine Creat Clearance w eGFR POC Glucometer 125 217 134 Random Glucose Hemoglobin A1c % Calcium Phosphorus Magnesium Iron TIBC Iron Saturation Ferritin Total Bilirubin AST ALT Alkaline Phosphatase C-Reactive Protein Total Protein Albumin CA 19-9 Antigen Random Vancomycin Hep A IgM Ab Confirm Hepatitis A Ab Total Hep Bs Antigen Hep Bs Antibody Hep B Core Total Ab Hep C Ab Diagnostic Blood Type Antibody Screen 09/07/18 09/08/18 09/08/18 21:51 05:48 06:00 WBC Corrected WBC (auto) RBC Hgb Hct MCV MCH MCHC RDW Plt Count MPV Absolute Neuts (auto) Neutrophils % Lymphocytes % Monocytes % Eosinophils % Basophils % Nucleated RBC % Manual Slide Review Platelet Comment ESR PT with INR 44.40 H INR 3.71 H PTT (Actin FS) Sodium Potassium Chloride Carbon Dioxide Anion Gap BUN Creatinine Creat Clearance w eGFR POC Glucometer 221 63 Random Glucose Hemoglobin A1c % Calcium Phosphorus Magnesium Iron TIBC Iron Saturation Ferritin Total Bilirubin AST ALT Alkaline Phosphatase C-Reactive Protein Total Protein Albumin CA 19-9 Antigen Random Vancomycin Hep A IgM Ab Confirm Hepatitis A Ab Total Hep Bs Antigen Hep Bs Antibody Hep B Core Total Ab Hep C Ab Diagnostic Blood Type Antibody Screen 09/08/18 09/08/18 09/08/18 06:00 06:00 11:01 WBC 9.1 Corrected WBC (auto) RBC 2.82 L Hgb 8.8 L Hct 26.8 L MCV 94.9 MCH 31.2 MCHC 32.9 RDW 15.4 Plt Count 234 D MPV 9.1 Absolute Neuts (auto) 6.7 Neutrophils % 73.1 Lymphocytes % 12.7 D Monocytes % 13.8 H Eosinophils % 0.1 Basophils % 0.3 Nucleated RBC % 0 Manual Slide Review Platelet Comment ESR PT with INR INR PTT (Actin FS) Sodium 135 L Potassium 4.2 Chloride 99 Carbon Dioxide 29 Anion Gap 8 BUN 39 H Creatinine 7.2 H Creat Clearance w eGFR 5.54 POC Glucometer 216 Random Glucose 124 H Hemoglobin A1c % Calcium 8.1 L Phosphorus Magnesium Iron TIBC Iron Saturation Ferritin Total Bilirubin 0.5 AST 25 ALT 18 Alkaline Phosphatase 53 C-Reactive Protein Total Protein 5.9 L Albumin 2.1 L CA 19-9 Antigen Random Vancomycin Hep A IgM Ab Confirm Hepatitis A Ab Total Hep Bs Antigen Hep Bs Antibody Hep B Core Total Ab Hep C Ab Diagnostic Blood Type Antibody Screen 09/08/18 09/08/18 09/09/18 16:09 22:14 05:14 WBC Corrected WBC (auto) RBC Hgb Hct MCV MCH MCHC RDW Plt Count MPV Absolute Neuts (auto) Neutrophils % Lymphocytes % Monocytes % Eosinophils % Basophils % Nucleated RBC % Manual Slide Review Platelet Comment ESR PT with INR INR PTT (Actin FS) Sodium Potassium Chloride Carbon Dioxide Anion Gap BUN Creatinine Creat Clearance w eGFR POC Glucometer 146 196 146 Random Glucose Hemoglobin A1c % Calcium Phosphorus Magnesium Iron TIBC Iron Saturation Ferritin Total Bilirubin AST ALT Alkaline Phosphatase C-Reactive Protein Total Protein Albumin CA 19-9 Antigen Random Vancomycin Hep A IgM Ab Confirm Hepatitis A Ab Total Hep Bs Antigen Hep Bs Antibody Hep B Core Total Ab Hep C Ab Diagnostic Blood Type Antibody Screen 09/09/18 09/09/18 09/09/18 06:15 06:15 08:50 WBC 8.8 Corrected WBC (auto) RBC 2.84 L Hgb 8.9 L Hct 26.8 L MCV 94.5 MCH 31.3 MCHC 33.1 RDW 15.4 Plt Count 245 MPV 8.9 Absolute Neuts (auto) Neutrophils % Lymphocytes % Monocytes % Eosinophils % Basophils % Nucleated RBC % Manual Slide Review Platelet Comment ESR PT with INR 47.80 H INR 3.99 H PTT (Actin FS) Sodium Potassium Chloride Carbon Dioxide Anion Gap BUN Creatinine Creat Clearance w eGFR POC Glucometer Random Glucose Hemoglobin A1c % Calcium Phosphorus Magnesium Iron TIBC Iron Saturation Ferritin Total Bilirubin AST ALT Alkaline Phosphatase C-Reactive Protein Total Protein Albumin CA 19-9 Antigen Random Vancomycin 15.6 L Hep A IgM Ab Confirm Hepatitis A Ab Total Hep Bs Antigen Hep Bs Antibody Hep B Core Total Ab Hep C Ab Diagnostic Blood Type Antibody Screen 09/09/18 09/09/18 09/09/18 08:50 16:23 22:04 WBC Corrected WBC (auto) RBC Hgb Hct MCV MCH MCHC RDW Plt Count MPV Absolute Neuts (auto) Neutrophils % Lymphocytes % Monocytes % Eosinophils % Basophils % Nucleated RBC % Manual Slide Review Platelet Comment ESR PT with INR INR PTT (Actin FS) Sodium 134 L Potassium 4.5 Chloride 97 L Carbon Dioxide 27 Anion Gap 11 BUN 56 H Creatinine 8.5 H* Creat Clearance w eGFR 4.57 POC Glucometer 168 119 Random Glucose 196 H Hemoglobin A1c % Calcium 8.2 L Phosphorus 4.7 Magnesium Iron TIBC Iron Saturation Ferritin Total Bilirubin AST ALT Alkaline Phosphatase C-Reactive Protein Total Protein Albumin CA 19-9 Antigen Random Vancomycin Hep A IgM Ab Confirm Hepatitis A Ab Total Hep Bs Antigen Hep Bs Antibody Hep B Core Total Ab Hep C Ab Diagnostic Blood Type Antibody Screen 09/10/18 09/10/18 09/10/18 05:46 10:15 11:19 WBC 7.0 Corrected WBC (auto) RBC 3.01 L Hgb 9.4 L Hct 28.7 L MCV 95.1 MCH 31.3 MCHC 32.9 RDW 15.5 Plt Count 255 MPV 9.2 Absolute Neuts (auto) Neutrophils % Lymphocytes % Monocytes % Eosinophils % Basophils % Nucleated RBC % Manual Slide Review Platelet Comment ESR PT with INR INR PTT (Actin FS) Sodium Potassium Chloride Carbon Dioxide Anion Gap BUN Creatinine Creat Clearance w eGFR POC Glucometer 96 145 Random Glucose Hemoglobin A1c % Calcium Phosphorus Magnesium Iron TIBC Iron Saturation Ferritin Total Bilirubin AST ALT Alkaline Phosphatase C-Reactive Protein Total Protein Albumin CA 19-9 Antigen Random Vancomycin Hep A IgM Ab Confirm Hepatitis A Ab Total Hep Bs Antigen Hep Bs Antibody Hep B Core Total Ab Hep C Ab Diagnostic Blood Type Antibody Screen 09/10/18 09/10/18 09/10/18 12:15 16:24 21:07 WBC Corrected WBC (auto) RBC Hgb Hct MCV MCH MCHC RDW Plt Count MPV Absolute Neuts (auto) Neutrophils % Lymphocytes % Monocytes % Eosinophils % Basophils % Nucleated RBC % Manual Slide Review Platelet Comment ESR PT with INR 47.40 H INR 3.96 H PTT (Actin FS) Sodium Potassium Chloride Carbon Dioxide Anion Gap BUN Creatinine Creat Clearance w eGFR POC Glucometer 184 151 Random Glucose Hemoglobin A1c % Calcium Phosphorus Magnesium Iron TIBC Iron Saturation Ferritin Total Bilirubin AST ALT Alkaline Phosphatase C-Reactive Protein Total Protein Albumin CA 19-9 Antigen Random Vancomycin Hep A IgM Ab Confirm Hepatitis A Ab Total Hep Bs Antigen Hep Bs Antibody Hep B Core Total Ab Hep C Ab Diagnostic Blood Type Antibody Screen 09/11/18 09/11/18 09/11/18 06:00 06:00 06:37 WBC 7.6 Corrected WBC (auto) RBC 3.00 L Hgb 9.3 L Hct 28.3 L MCV 94.4 MCH 31.0 MCHC 32.8 RDW 15.6 Plt Count 274 MPV 8.8 Absolute Neuts (auto) Neutrophils % Lymphocytes % Monocytes % Eosinophils % Basophils % Nucleated RBC % Manual Slide Review Platelet Comment ESR PT with INR INR PTT (Actin FS) Sodium 136 Potassium 4.3 Chloride 98 Carbon Dioxide 28 Anion Gap 10 BUN 48 H Creatinine 7.6 H* Creat Clearance w eGFR 5.20 POC Glucometer 137 Random Glucose 135 H Hemoglobin A1c % Calcium 7.9 L Phosphorus 4.2 Magnesium Iron TIBC Iron Saturation Ferritin Total Bilirubin 0.4 AST 12 L ALT 9 L Alkaline Phosphatase 62 C-Reactive Protein Total Protein 5.7 L Albumin 2.2 L CA 19-9 Antigen Random Vancomycin Hep A IgM Ab Confirm Hepatitis A Ab Total Hep Bs Antigen Hep Bs Antibody Hep B Core Total Ab Hep C Ab Diagnostic Blood Type Antibody Screen 09/11/18 08:00 WBC Corrected WBC (auto) RBC Hgb Hct MCV MCH MCHC RDW Plt Count MPV Absolute Neuts (auto) Neutrophils % Lymphocytes % Monocytes % Eosinophils % Basophils % Nucleated RBC % Manual Slide Review Platelet Comment ESR PT with INR 43.10 H INR 3.61 H PTT (Actin FS) Sodium Potassium Chloride Carbon Dioxide Anion Gap BUN Creatinine Creat Clearance w eGFR POC Glucometer Random Glucose Hemoglobin A1c % Calcium Phosphorus Magnesium Iron TIBC Iron Saturation Ferritin Total Bilirubin AST ALT Alkaline Phosphatase C-Reactive Protein Total Protein Albumin CA 19-9 Antigen Random Vancomycin Hep A IgM Ab Confirm Hepatitis A Ab Total Hep Bs Antigen Hep Bs Antibody Hep B Core Total Ab Hep C Ab Diagnostic Blood Type Antibody Screen Active Medications Generic Name Dose Route Start Last Admin Trade Name Freq PRN Reason Stop Dose Admin Acetaminophen 650 mg 09/05/18 10:39 09/08/18 20:50 Tylenol - PO 650 mg Q6H PRN Administration FEVER Acetaminophen 650 mg 09/05/18 10:54 09/09/18 12:39 Tylenol - PO 650 mg Q6H PRN Administration PAIN LEVEL 1-5 Acetaminophen 325 mg 09/05/18 11:23 09/11/18 14:19 Tylenol - PO 325 mg Q6H PRN Administration PAIN 6-10 Acetylcysteine 400 mg 09/04/18 20:00 09/11/18 08:40 Mucomyst 20 Oral / Inh Use Only* NEB Not Given RBID [facility] Guaifenesin 10 ml 09/04/18 12:00 09/11/18 14:23 Diabetic Tussin Dm - PO Not Given Q6HPO ALDO Sodium Chloride 250 mls @ 3,000 mls/hr 09/11/18 08:15 Normal Saline - IV 09/12/18 08:15 PRN PRN Hypotension during Dialysis Insulin Aspart 1 vial 09/04/18 11:00 09/11/18 14:24 Novolog Vial Sliding Scale - SQ Not Given ACHS [facility] Protocol Insulin Detemir 15 units 09/05/18 07:00 09/11/18 06:38 Levemir Vial SQ 15 units AM [facility] Administration Midodrine 5 mg 09/04/18 14:00 09/11/18 14:23 Proamatine - PO Not Given TID-MID [facility] Multivit/Ca Carb/B Cmplx/FA/Prenat 1 tablet 09/05/18 10:00 09/11/18 14:20 Nephro-Mahi - PO 1 tablet DAILY ALDO Administration Oxycodone HCl 5 mg 09/09/18 12:39 09/11/18 14:19 Roxicodone - PO 5 mg Q6H PRN Administration PAIN LEVEL 7 - 10 Sertraline HCl 25 mg 09/05/18 10:00 09/11/18 14:20 Zoloft - PO 25 mg DAILY ALDO Administration Sevelamer Carbonate 2,400 mg 09/04/18 12:00 09/11/18 14:21 Renvela - PO 2,400 mg CM [facility] Administration Warfarin Sodium 7.5 mg 09/07/18 18:00 09/09/18 17:30 Coumadin - PO Not Given DAILY@1800 [facility] Microbiology 09/04/18 08:40 Foot - Right Gram Stain - Final 09/04/18 08:40 Foot - Right Wound Culture - Final Morganella Morganii Staphylococcus Coagulase Neg Enterococcus Faecalis 08/20/18 21:45 Blood - Peripheral Venous Blood Culture - Final NO GROWTH AFTER 5 DAYS INCUBATION 08/20/18 21:30 Blood - Peripheral Venous Blood Culture - Final NO GROWTH AFTER 5 DAYS INCUBATION Condition: Stable - Instructions Diet, Activity, Other Instructions: Follow up Podiatry Dr. Rodríguez Follow up with Vascular Dr. Alarcon COntinue with dialysis M-W-F Will receive Vancomycin 1g IVPB on dialysis days for 1 week CUrrent INR 3.61--daily INR and resume coumadin when in therapeutic range 2-3 return to ER if develop fluid overload, fever, severe pain, respiratory distress , chest pain Referrals: Kajal Rodríguez DPM [Staff Physician] - Narciso Alarcon MD [Non Staff, Medical] - Alon Page MD [Staff Physician] - Disposition: [facility] - Home Medications Comprehensive Discharge Medication List: Ambulatory Orders Calcitriol 0.5 mcg PO DAILY 08/20/18 Folic Acid/Vit B Complex and C [Nayla-Mahi Tablet] 0.8 mg PO DAILY 08/20/18 Glimepiride [Amaryl -] 4 mg PO DAILY 08/20/18 Metoprolol Succinate [Toprol Xl -] 25 mg PO DAILY 08/20/18 Sertraline HCl [Zoloft -] 25 mg PO DAILY 08/20/18 Sevelamer Carbonate [Renvela] 2,400 mg PO CM 08/20/18 Sodium Bicarbonate 10 mg PO DAILY 08/20/18 Warfarin Na [Coumadin] 10 mg PO DAILY 08/20/18 Acetaminophen [Tylenol .Regular Strength -] 325 mg PO Q6H PRN tablet 09/11/18 Acetylcysteine Po/INH 20% [Mucomyst 20 Oral / INH Use Only*] 400 mg NEB RBID vial 09/11/18 Guaifenesin/D-Methorphan Hb [Diabetic Tussin Dm -] 10 ml PO Q6HPO ml 09/11/18 Insulin (Levemir) [Levemir Vial] 15 units SQ AM units 09/11/18 Insulin Sliding Scale [Novolog Vial Sliding Scale -] 1 vial SQ ACHS units 09/11 Midodrine HCl [Proamatine -] 5 mg PO TID-MID tablet 09/11/18 Sertraline HCl [Zoloft -] 25 mg PO DAILY tablet 09/11/18 Sevelamer Carbonate [Renvela -] 2,400 mg PO CM tab 09/11/18 Vitamin B Comp W-C [Nephro-Mahi -] 1 tablet PO DAILY tablet 09/11/18 Warfarin Na [Coumadin -] 7.5 mg PO DAILY@1800 tablet 09/11/18 oxyCODONE HCL [Roxicodone -] 5 mg PO Q6H PRN #120 tablet MDD 4 09/11/18
[2018-09-11] MEDS ORDERED: INSULIN (NOVOLOG) ASPART 100 UNITS/ML 10ML VIAL ONE ×2 (17:01→21:26)
[2018-09-11] MEDS: WARFARIN NA 5 MG TABLET (UD) PO SCH (17:33)
[2018-09-12] MEDS: INSULIN (LEVEMIR) 100 UNITS/ML UNITS SQ SCH (06:28)
[2018-09-12] MEDS: INSULIN SLIDING SCALE (NOVOLOG) 1 VIAL SQ SCH ×3 (06:28→16:19)
[2018-09-12 07:09] LABS: HEMATOCRIT 27.9 % (32.4-45.2); HEMOGLOBIN 9.3 GM/dL (10.7-15.3); MCH 31.4 pg (25.7-33.7); MCHC 33.3 g/dl (32.0-36.0); MEAN CELL VOLUME 94.2 fl (80-96); MEAN PLT VOLUME 8.7 fl (7.5-11.1); PLATELET COUNT 273 K/MM3 (134-434); RBC 2.96 M/mm3 (3.60-5.2); RDW 15.6 % (11.6-15.6); WHITE BLOOD COUNT 6.9 K/mm3 (4.0-10.0)
[2018-09-12] MEDS: SEVELAMER CARBONATE 800 MG TAB (FP) PO SCH ×3 (07:32→17:09)
[2018-09-12] MEDS: ACETYLCYSTEINE 20% 200MG/ML 4 ML VIAL *FOR ORAL / INH USE ONLY NEB SCH (07:34)
[2018-09-12] MEDS ORDERED: PT OWN MED DRAWER 7, Y5N ONE (09:43)
[2018-09-12] MEDS: MIDODRINE HCL 5 MG TABLET PO SCH ×2 (09:45→14:15)
[2018-09-12] MEDS: VITAMIN B COMP W-C 1 EA TABLET PO SCH (09:45)
[2018-09-12] MEDS: SERTRALINE HCL 25 MG TABLET (FP) PO SCH (09:45)
[2018-09-12] MEDS: ACETAMINOPHEN 325 MG TABLET (FP) PO PRN (09:48)
--- NOTE | 2018-09-12 10:15 | PN ---
Progress Note (short form) - Note Progress Note: POD#9. No pain. vss, Tmax 99.0 +dressing clean dry and intact, wbc=6.9, +dusky appearance left big toe, early gangarene left foot Continue betadine dressings to right foot daily. Will watch left big toe. Patient can be dc to home and return for daily HBO as this would be most beneficial to her healing the feet. Will follow till dc. Spoke by phone with daughter. Will follow till dc.
[2018-09-12] MEDS ORDERED: INSULIN (NOVOLOG) ASPART 100 UNITS/ML 10ML VIAL ONE (10:24)
--- NOTE | 2018-09-12 11:53 | OP ---
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 PROCEDURE: Tarsometatarsal amputation of the right forefoot. ANESTHESIA: Local with MAC. MATERIALS USED: Plain packing 1/4 inch, 3-0 nylon suture, Betadine-soaked Adaptic and dry sterile dressing for postoperative dressing. COMPLICATIONS: None. FINDING AND PROCEDURE: Patient was brought to the operating room and placed on the operating table in a supine position. After adequate IV sedation 15 mL of a 1:1 mixture of 1% lidocaine plain and 0.5% Marcaine plain was injected to the right mid foot area. The right foot was then scrubbed, prepped and draped in the aseptic fashion. Surgery began in the following manner. Using No.15 blade the gangrenous toes 1 through 5 were disarticulated at the metatarsophalangeal joint and removed from the operative field and sent to Pathology. At this time the heads of the metatarsals 1 through 5 were assessed and the 5th metatarsal head noted to be fractured at the 5th metatarsal neck. Therefore, the head of the 5th metatarsal was resected using sagittal saw. The remaining metatarsal heads noted to be healthy and the soft tissue coverage was viable and healthy bleeding noted. The wound was then irrigated with a copious amount of normal saline with bacitracin in it and the dorsal and plantar flap was reapproximated using retention sutures using 3-0 nylon suture and the wound bed was packed using 1/4-inch plain packing. Postoperative dressing such as Betadine-soaked Adaptic and dry sterile dressing, abdominal pad, Kerlix and Armand bandage applied to the right surgical site. Patient tolerated the procedure and anesthesia well and was transferred to the postanesthesia care unit with vital signs stable and vascular status intact. Patient will be followed by Podiatry and Medicine team. JAZMYN Reyes/[id number]
[2018-09-12 12:12] VITALS: BMI 34.7
--- NOTE | 2018-09-12 13:17 | PN ---
Progress Note (short form) - Note Progress Note: Patient to be discharged to [facility] today. Patient is awake and alert, NAD. TLC to be removed by surgery prior to discharge. No complaints of pain, SOB, chest or abdominal pain. Instructions for follow up in discharge summary. Problem List - Problems (1) Gangrene Code(s): I96 - GANGRENE, NOT ELSEWHERE CLASSIFIED (2) Atrial fibrillation Code(s): I48.91 - UNSPECIFIED ATRIAL FIBRILLATION Qualifiers: Atrial fibrillation type: chronic Qualified Code(s): I48.2 - Chronic atrial fibrillation (3) ESRD (end stage renal disease) on dialysis Code(s): N18.6 - END STAGE RENAL DISEASE; Z99.2 - DEPENDENCE ON RENAL DIALYSIS (4) Hypotension Code(s): I95.9 - HYPOTENSION, UNSPECIFIED (5) Pancreatic cyst Code(s): K86.2 - CYST OF PANCREAS (6) Diabetes 1.5, managed as type 2 Code(s): E13.9 - OTHER SPECIFIED DIABETES MELLITUS WITHOUT COMPLICATIONS (7) Cellulitis Code(s): L03.90 - CELLULITIS, UNSPECIFIED
[2018-09-12 13:46] VITALS: BP 96/48; PULSE 78; TEMP 98.7
[2018-09-12 13:50] LABS: INR 2.26 (0.83-1.09); PROTHROMBIN TIME (PATIENT) 26.9 SEC (9.7-13.0)
--- NOTE | 2018-09-12 15:03 | PN ---
Progress Note (short form) - Note Progress Note: Renal follow up for ESRD on HD Pt seen and examined at the bedside no acute complaints no sob, cp, abd pain. has occasional pain in foot Vital Signs Temperature 98.7 F 09/12/18 13:44 Pulse Rate 78 09/12/18 13:44 Respiratory Rate 18 09/12/18 09:00 Blood Pressure 96/48 L 09/12/18 13:44 O2 Sat by Pulse Oximetry (%) 98 09/12/18 09:00 Intake & Output 09/09/18 09/10/18 09/11/18 09/12/18 23:59 23:59 23:59 23:59 Intake Total 445 950 100 475 Output Total 0 0 0 720 Balance 445 950 100 -245 Weight 110.223 kg 108.862 kg 109.458 kg 109.996 kg NAD awake and alert irregular, no M/R CTA soft, obese, NT/ND no LE edema CBC, BMP 09/12/18 06:30 09/11/18 06:00 Current Medications Acetaminophen (Tylenol -) 650 mg PO Q6H PRN PRN Reason: FEVER Last Admin: 09/08/18 20:50 Dose: 650 mg Acetaminophen (Tylenol -) 650 mg PO Q6H PRN PRN Reason: PAIN LEVEL 1-5 Last Admin: 09/12/18 09:48 Dose: 650 mg Acetaminophen (Tylenol -) 325 mg PO Q6H PRN PRN Reason: PAIN 6-10 Last Admin: 09/11/18 14:19 Dose: 325 mg Acetylcysteine (Mucomyst 20 Oral / Inh Use Only*) 400 mg NEB RBID [facility] Last Admin: 09/12/18 07:34 Dose: Not Given Guaifenesin (Diabetic Tussin Dm -) 10 ml PO Q6HPO [facility] Last Admin: 09/11/18 17:06 Dose: Not Given Insulin Aspart (Novolog Vial Sliding Scale -) 1 vial SQ ACHS [facility]; Protocol Last Admin: 09/12/18 10:26 Dose: 3 units Insulin Detemir (Levemir Vial) 15 units SQ AM [facility] Last Admin: 09/12/18 06:28 Dose: 15 units Midodrine (Proamatine -) 5 mg PO TID-MID [facility] Last Admin: 09/12/18 14:15 Dose: 5 mg Multivit/Ca Carb/B Cmplx/FA/Prenat (Nephro-Mahi -) 1 tablet PO DAILY [facility] Last Admin: 09/12/18 09:45 Dose: 1 tablet Sertraline HCl (Zoloft -) 25 mg PO DAILY [facility] Last Admin: 09/12/18 09:45 Dose: 25 mg Sevelamer Carbonate (Renvela -) 2,400 mg PO CM [facility] Last Admin: 09/12/18 11:56 Dose: 2,400 mg Warfarin Sodium (Coumadin -) 7.5 mg PO DAILY@1800 [facility] Last Admin: 09/11/18 17:33 Dose: Not Given 77 year old woman with hx of ESRD on HD, DM, Afib on Coumadin, CHF, Hypertension, HLD who presented with 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
[2018-09-12] MEDS: guaiFENesin/D-M SUGAR-FREE/ACLHOL-FREE 118 ML BOTTLE PO SCH (15:12)
== END 2018-09-12 17:45 | DRG 239 ==
LOC: JER 15:59 → JERBED 22:43 → J6S 08-21 02:43
PROVIDERS: ADMIT Family Medicine; ATTEND Family Medicine
PROC: 05HM33Z Insertion of Infusion Device into Right Internal Jugular Vein, Percutaneous Approach (ICD-10-PCS; 2018-08-23)
PROC: B513YZA Fluoroscopy of Right Jugular Veins using Other Contrast, Guidance (ICD-10-PCS; 2018-08-23)
PROC: B543ZZA Ultrasonography of Right Jugular Veins, Guidance (ICD-10-PCS; 2018-08-23)
PROC: 5A1D70Z Performance of Urinary Filtration, Intermittent, Less than 6 Hours Per Day (ICD-10-PCS; 2018-08-24)
PROC: B41DYZZ Fluoroscopy of Aorta and Bilateral Lower Extremity Arteries using Other Contrast (ICD-10-PCS; 2018-08-30)
PROC: 0Y6T0Z0 Detachment at Right 3rd Toe, Complete, Open Approach (ICD-10-PCS; 2018-09-04)
PROC: 0Y6V0Z0 Detachment at Right 4th Toe, Complete, Open Approach (ICD-10-PCS; 2018-09-04)
PROC: 0Y6M0ZF Detachment at Right Foot, Partial 5th Ray, Open Approach (ICD-10-PCS; 2018-09-04)
PROC: B40FYZZ Plain Radiography of Right Lower Extremity Arteries using Other Contrast (ICD-10-PCS; 2018-09-04)
PROC: 0Y6P0Z0 Detachment at Right 1st Toe, Complete, Open Approach (ICD-10-PCS; principal; 2018-09-04 08:00)
PROC: 0Y6R0Z0 Detachment at Right 2nd Toe, Complete, Open Approach (ICD-10-PCS; 2018-09-04 08:00)
DX: E11.52 Type 2 diabetes mellitus with diabetic peripheral angiopathy with gangrene (principal); N18.6 End stage renal disease; I96 Gangrene, not elsewhere classified; I13.2 Hypertensive heart and chronic kidney disease with heart failure and with stage 5 chronic kidney disease, or end stage renal disease; K86.2 Cyst of pancreas; I50.22 Chronic systolic (congestive) heart failure; M86.9 Osteomyelitis, unspecified; L03.032 Cellulitis of left toe; L03.031 Cellulitis of right toe; I48.2 Chronic atrial fibrillation; I95.9 Hypotension, unspecified; D63.1 Anemia in chronic kidney disease; E11.22 Type 2 diabetes mellitus with diabetic chronic kidney disease; Z99.2 Dependence on renal dialysis; E66.01 Morbid (severe) obesity due to excess calories; Z68.34 Body mass index [BMI] 34.0-34.9, adult; I48.91 Unspecified atrial fibrillation; E11.69 Type 2 diabetes mellitus with other specified complication; Z79.01 Long term (current) use of anticoagulants; E78.5 Hyperlipidemia, unspecified; Z79.84 Long term (current) use of oral hypoglycemic drugs; D64.9 Anemia, unspecified; I25.10 Atherosclerotic heart disease of native coronary artery without angina pectoris; Z88.0 Allergy status to penicillin; N28.1 Cyst of kidney, acquired; N63.10 Unspecified lump in the right breast, unspecified quadrant; B35.1 Tinea unguium; B95.2 Enterococcus as the cause of diseases classified elsewhere; B95.8 Unspecified staphylococcus as the cause of diseases classified elsewhere
CPT/HCPCS: 36415; 71045-TC-FY; 73630-TC-LT; 73630-TC-RT-FY; 75635-TC; 80048; 80053; 82728; 82962; 83036; 83540; 83550; 83735; 84100; 85025; 85027; 85610; 85651; 85730; 86140; 86301; 86704; 86706; 86708; 86803; 86850; 86900; 86901; 87040; 87070; 87186; 87205; 87340; 88305-TC; 88311-TC; 93005; 93010; 94640; 94760; 97116-GP; 97161-GP; 99284-25; G0480; J0131; J0885; J1644; J3243; P9047

== ENCOUNTER 2018-11-11 08:27 | Inpatient (IN) | payer OTHER, MEDICARE ==
--- NOTE | 2018-11-11 10:00 | PDOC ---
History of Present Illness - General Chief Complaint: Wound Stated Complaint: WOUND INFECTION Time Seen by Provider: 11/11/18 08:57 History Source: Patient Exam Limitations: Clinical Condition - History of Present Illness Initial Comments: 11/11/18 09:55 Patient with history of insulin-dependent diabetes, hyperlipidemia, hypertension and A. fib on Coumadin sent in by wound clinic for admission for nonhealing right foot surgical wound. Pt sent by Dr. Rodríguez for admission to Dr. David for management of nonhealing amputated right toes wound. Patient denies fever. Patient reported going to hyperbaric treatment for wound but was told by wound clinic wound is not healing as it should. Patient not on any antibiotics. Timing/Duration: other (3 months) Past History - Past Medical History Allergies/Adverse Reactions: Allergies Allergy/AdvReac Type Severity Reaction Status Date / Time Penicillins Allergy Swelling Verified 11/11/18 08:32 Home Medications: Ambulatory Orders Glimepiride [Amaryl -] 4 mg PO DAILY 08/20/18 Metoprolol Succinate [Toprol Xl -] 25 mg PO DAILY 08/20/18 Sertraline HCl [Zoloft -] 25 mg PO DAILY 08/20/18 Sevelamer Carbonate [Renvela] 2,400 mg PO ASDIR 08/20/18 Sodium Bicarbonate 650 mg PO DAILY 08/20/18 Vitamin B Comp W-C [Nephro-Mahi -] 1 tablet PO DAILY tablet 09/11/18 Midodrine HCl 10 mg PO DAILY 09/26/18 Glimepiride [Amaryl -] 4 mg PO DAILY 11/11/18 Insulin (Levemir) [Levemir Vial] 32 units SQ AM 11/11/18 Simvastatin [Zocor -] 40 mg PO HS 11/11/18 Warfarin Sodium [Coumadin] 10 mg PO DAILY 11/11/18 Anemia: Yes Asthma: No Cancer: No Cardiac Disorders: Yes (ARRHYTHMIA, H/O A FIB,CAD) CVA: No COPD: No CHF: Yes Dementia: No Diabetes: Yes (1993) Dialysis: Yes () GI Disorders: No Disorders: Yes (RENAL DIALYSIS STARTED 2003) HTN: Yes (NO MEDS (GOES TOO LOW ON DIALYSIS)) Hypercholesterolemia: Yes Liver Disease: No Seizures: No Thyroid Disease: No - Surgical History Abdominal Surgery: Yes (UMBILICAL HERNIA REPAIR) Appendectomy: Yes (MANY YRS AGO) Cardiac Surgery: No Cholecystectomy: Yes (MANY YRS AGO) Lung Surgery: No Neurologic Surgery: No Orthopedic Surgery: No - Immunization History Immunization Up to Date: Yes - Suicide/Smoking/Psychosocial Hx Smoking History: Never smoked Have you smoked in the past 12 months: No Cigars Per Day: 0 Information on smoking cessation initiated: No Hx Alcohol Use: No Drug/Substance Use Hx: No Substance Use Type: None Hx Substance Use Treatment: No Review of Systems - Review of Systems Able to Perform ROS?: Yes Is the patient limited Bahamian proficient: No Constitutional: No: Fever, Malaise HEENTM: No: Symptoms Reported Respiratory: No: Symptoms reported Cardiac (ROS): No: Symptoms Reported ABD/GI: No: Symptoms Reported Integumentary: Yes: Symptoms Reported, See HPI, Other (right foot wound and gangrene) Neurological: No: Symptoms reported, Tingling, Weakness Endocrine: No: Symptoms Reported All Other Systems: Reviewed and Negative *Physical Exam - Vital Signs Last Vital Signs Temp Pulse Resp BP Pulse Ox 98.2 F 86 17 115/57 L 100 11/11/18 08:30 11/11/18 08:30 11/11/18 08:30 11/11/18 08:30 11/11/18 08:30 - Physical Exam Comments: 11/11/18 10:01 GENERAL: Well developed, well nourished. Awake and alert. No acute distress. HEENT: Normocephalic, atraumatic. PERRLA, EOMI. No conjunctival pallor. Sclera are non- icteric. Moist mucous membranes. Oropharynx is clear. NECK: Supple. Full ROM. CARDIOVASCULAR: Regular rate and rhythm. No murmurs, rubs, or gallops. Distal pulses are 2+ and symmetric. PULMONARY: No evidence of respiratory distress. Lungs clear to auscultation bilaterally. No wheezing, rales or rhonchi. MUSCULOSKELETAL Normal range of motion at all joints. complete missing whole toes of right foot with open wound over amputated toes with gangrene around wound. no skin erythema or evidence of wound infection. SKIN: Warm and dry. Normal capillary refill. Complete missing toes of right foot with open wound over amputated toes with gangrene around wound NEUROLOGICAL: Alert, awake, appropriate. Cranial nerves 2-12 intact. Normal speech. PSYCHIATRIC: Cooperative. Good eye contact. Appropriate mood and affect. General Appearance: Yes: Nourished, Appropriately Dressed. No: Apparent Distress ED Treatment Course - LABORATORY CBC & Chemistry Diagram: 11/11/18 10:40 11/11/18 17:45 - ADDITIONAL ORDERS Additional order review: 11/11/18 09:15 RBC Cancelled MCV Cancelled MCHC Cancelled RDW Cancelled MPV Cancelled Neutrophils % Cancelled Lymphocytes % Cancelled Monocytes % Cancelled Eosinophils % Cancelled Basophils % Cancelled Medical Decision Making - Medical Decision Making 11/11/18 09:58 Patient with history of insulin-dependent diabetes, hyperlipidemia, hypertension and A. fib on Coumadin sent in by wound clinic for admission for nonhealing right foot surgical wound. Pt sent by Dr. Rodríguez for admission to Dr. David for management of nonhealing amputated right toes wound. Patient denies fever. Patient reported going to hyperbaric treatment for wound but was told by wound clinic wound is not healing as the showed. Patient not on any antibiotics. Exam significant for missing completely toes of right foot with open wound and gangrene around distal portion of right foot. Wound cleaned with Betadine and covered with petrolatum jelly gauze and wrapped with stretch gauze roll. CBC, CMP, hemoglobin A1c and right foot x-ray ordered. Blood culture ordered. Call made to Dr. Hansel dover for admission under oJann. 11/11/18 10:[address] 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
[2018-11-11 10:23] LABS: ALBUMIN 3.2 g/dl (3.4-5.0); BILIRUBIN,TOTAL 0.3 mg/dL (0.2-1); BLOOD UREA NITROGEN 74.6 mg/dL (7-18); CALCIUM 9.3 mg/dL (8.5-10.1); TOT PROT 7.5 g/dl (6.4-8.2)
[2018-11-11 10:40] LABS: CREATININE 10.2 mg/dL (0.55-1.3)
--- NOTE | 2018-11-11 10:45 | HP ---
Admitting History and Physical - Primary Care Physician PCP: Kishore David - Admission Chief Complaint: right foot non healing wound History of Present Illness: 78 year old woman with pmh chronic systolic chf with moderate LV systolic dysfunction, afib, CVA, HLD, COPD, ESRD on HD, DMII, anemia, PAD admitted for non healing right foot wound per patient she went to see dr ventura on last week and was told to come to ER for admission, she goes for [facility] . 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 No: CAD Gastrointestinal: Yes: Constipation Renal/: Yes: Renal Failure, Hemodialysis, Other (renal cysts see HPI) Heme/Onc: Yes: Anemia Endocrine: Yes: Diabetes Mellitus - Past Surgical History Past Surgical History: Yes: Appendectomy, AV Fistula/Graft, Cholecystectomy, Hernia Repair - Smoking History Smoking history: Never smoked Have you smoked in the past 12 months: No - Alcohol/Substance Use Hx Alcohol Use: No History of Substance Use: reports: None - Social History ADL: Independent History of Recent Travel: No Home Medications - Allergies Allergies/Adverse Reactions: Allergies Allergy/AdvReac Type Severity Reaction Status Date / Time Penicillins Allergy Swelling Verified 11/11/18 08:32 - Home Medications Home Medications: Ambulatory Orders Glimepiride [Amaryl -] 4 mg PO DAILY 08/20/18 Metoprolol Succinate [Toprol Xl -] 25 mg PO DAILY 08/20/18 Sertraline HCl [Zoloft -] 25 mg PO DAILY 08/20/18 Sevelamer Carbonate [Renvela] 2,400 mg PO ASDIR 08/20/18 Sodium Bicarbonate 650 mg PO DAILY 08/20/18 Vitamin B Comp W-C [Nephro-Mahi -] 1 tablet PO DAILY tablet 09/11/18 Midodrine HCl 10 mg PO DAILY 09/26/18 Glimepiride [Amaryl -] 4 mg PO DAILY 11/11/18 Insulin (Levemir) [Levemir Vial] 32 units SQ AM 11/11/18 Simvastatin [Zocor -] 40 mg PO HS 11/11/18 Warfarin Sodium [Coumadin] 10 mg PO DAILY 11/11/18 Family Disease History - Family Disease History Family Disease History: Diabetes: Sister (), CA: Father (prostate Ca; ) Review of Systems - Review of Systems Neck: reports: No Symptoms Cardiovascular: reports: No Symptoms Respiratory: reports: No Symptoms Gastrointestinal: reports: No Symptoms Genitourinary: reports: No Symptoms Physical Examination Vital Signs: Vital Signs Temperature 98.2 F 11/11/18 08:30 Pulse Rate 86 11/11/18 08:30 Respiratory Rate 17 11/11/18 08:30 Blood Pressure 115/57 L 11/11/18 08:30 O2 Sat by Pulse Oximetry (%) 100 11/11/18 08:30 Constitutional: Yes: Calm Cardiovascular: Yes: Regular Rate and Rhythm, S1, S2 Respiratory: Yes: CTA Bilaterally Gastrointestinal: Yes: Normal Bowel Sounds, Soft Extremities: Yes: Other (right transmetatarsal amputatin of foot, open wound yellowish discharge,black eschar) Labs: CBC, BMP 11/11/18 09:15 11/11/18 09:15 Imaging - Results X-ray: Pending Problem List - Problems (1) Wound of foot Assessment/Plan: podiatry foot xray ID vascular PCN allergy vanco one dose Code(s): S91.309A - UNSPECIFIED OPEN WOUND, UNSPECIFIED FOOT, INITIAL ENCOUNTER (2) ESRD (end stage renal disease) on dialysis Assessment/Plan: renal for HD today hypotension during HD midodrine Code(s): N18.6 - END STAGE RENAL DISEASE; Z99.2 - DEPENDENCE ON RENAL DIALYSIS (3) Anemia Assessment/Plan: epogen with HD Code(s): D64.9 - ANEMIA, UNSPECIFIED Qualifiers: Anemia type: other cause Other causes of anemia: chronic disease, kidney (4) Atrial fibrillation Assessment/Plan: toprol xl and coumadin daily INR Code(s): I48.91 - UNSPECIFIED ATRIAL FIBRILLATION Qualifiers: Atrial fibrillation type: chronic Qualified Code(s): I48.2 - Chronic atrial fibrillation (5) Diabetes Assessment/Plan: bgm hgba1c levemir amaryl sliding scale Code(s): E11.9 - TYPE 2 DIABETES MELLITUS WITHOUT COMPLICATIONS Qualifiers: Diabetes mellitus type: type 2 (6) HLD (hyperlipidemia) Assessment/Plan: atorvastatin Code(s): E78.5 - HYPERLIPIDEMIA, UNSPECIFIED
[2018-11-11 11:24] LABS: BASO % 1.2 % (0-2.0); EOS % 0.1 % (0-4.5); HEMATOCRIT 27.9 % (32.4-45.2); HEMOGLOBIN 9.3 GM/dL (10.7-15.3); LYMPH % 18.8 % (8-40); MCH 30.2 pg (25.7-33.7); MCHC 33.2 g/dl (32.0-36.0); MEAN CELL VOLUME 91.1 fl (80-96); MEAN PLT VOLUME 9.6 fl (7.5-11.1); MONO % 9.1 % (3.8-10.2); NEUT % 70.8 % (42.8-82.8); PLATELET COUNT 346 K/MM3 (134-434); RBC 3.06 M/mm3 (3.60-5.2); RDW 15.9 % (11.6-15.6); WHITE BLOOD COUNT 11.1 K/mm3 (4.0-10.0)
[2018-11-11] MEDS ORDERED: SODIUM CHLORIDE 250 ML IV PRN ×2 (12:05→12:14)
[2018-11-11] MEDS ORDERED: HEPARIN NA (PORCINE) 5,000 UNITS/ML 1ML VIAL IVPUSH ONE (12:05)
[2018-11-11] MEDS ORDERED: EPOETIN ALFA 10,000 UNIT/1 ML VIAL IVPUSH ONE (12:14)
--- NOTE | 2018-11-11 12:14 | CONSULT ---
Consult - text type - Consultation Consultation Note: Renal Consult for ESRD on HD This is a 78 year old woman with hx of ESRD on HD (MWF), CAD, PVD, DM type 2, CVA, Afib who presents with non-healing right foot wound. Pt last had dialysis on Sunday w/o complication. Denies any sob, cp, abd pain, fever, chills, N/V/D. No fever or chills. Has some drainage from right foot wound. PMhx: as above Allergies: PCN Social Hx: No T/A/D ROS: as per HPI, all other pertinent ros negative Home Medications Medication Instructions Recorded Glimepiride [Amaryl -] 4 mg PO DAILY 08/20/18 Metoprolol Succinate [Toprol Xl -] 25 mg PO DAILY 08/20/18 Sertraline HCl [Zoloft -] 25 mg PO DAILY 08/20/18 Sevelamer Carbonate [Renvela] 2,400 mg PO ASDIR 08/20/18 Sodium Bicarbonate 650 mg PO DAILY 08/20/18 Vitamin B Comp W-C [Nephro-Mahi -] 1 tablet PO DAILY tablet 09/11/18 Midodrine HCl 10 mg PO DAILY 09/26/18 Glimepiride [Amaryl -] 4 mg PO DAILY 11/11/18 Insulin (Levemir) [Levemir Vial] 32 units SQ AM 11/11/18 Simvastatin [Zocor -] 40 mg PO HS 11/11/18 Warfarin Sodium [Coumadin] 10 mg PO DAILY 11/11/18 Vital Signs Temperature 98.0 F 11/11/18 11:46 Pulse Rate 74 11/11/18 11:46 Respiratory Rate 18 11/11/18 11:46 Blood Pressure 129/77 11/11/18 11:46 O2 Sat by Pulse Oximetry (%) 97 11/11/18 11:46 Intake & Output 11/08/18 11/09/18 11/10/18 11/11/18 23:59 23:59 23:59 23:59 Weight 86.183 kg NAD awake and alert on room air neck supple, no JVD RRR, no M/R CTA soft NT/ND no LE edema, clubbing or cyanosis CBC, BMP 11/11/18 10:40 11/11/18 09:15 Current Medications Acetaminophen (Tylenol -) 650 mg PO Q6H PRN PRN Reason: PAIN LEVEL 1-5 Atorvastatin Calcium (Lipitor -) 40 mg PO HS ALDO Heparin Sodium (Porcine) (Heparin -) 5,000 unit SQ BID ALDO Heparin Sodium (Porcine) (Heparin -) 500 unit IVPUSH ONCE ONE Stop: 11/11/18 12:06 Heparin Sodium (Porcine) (Heparin -) 300 unit IVPUSH Q1H ALDO Stop: 11/11/18 14:16 Sodium Chloride (Normal Saline -) 250 mls @ 3,000 mls/hr IV PRN PRN PRN Reason: Hypotension during Dialysis Stop: 11/12/18 12:05 Insulin Aspart (Novolog Vial Sliding Scale -) 1 vial SQ ACHS ALDO; Protocol Metoprolol Succinate (Toprol Xl -) 25 mg PO DAILY ALDO Midodrine (Proamatine -) 5 mg PO TID-MID ALDO Sertraline HCl (Zoloft -) 25 mg PO DAILY [facility] Sevelamer Carbonate (Renvela -) 2,400 mg PO TIDCM [facility] 78 year old woman with hx of ESRD on HD (MWF), CAD, PVD, DM type 2, CVA, Afib who presents with non-healing right foot wound. #ESRD on HD (MWF) #LE wound/PVD #CKD related Anemia #Leukocytosis #DM2 #CAD #Renal Osteodystrophy for dialysis today as inpatient with UF as tolerated will clementein on MWF schedule while inpatinet Renal diet, 1.2 L fluid restriction daily will give BRAD with HD for anemia Podiatry and vascular follow up ? if antibiotics needed continue phos binders Thank you Will follow Alon Page DO
[2018-11-11 12:36] LABS: ERYTHROCYTE SEDIMENTATION RATE 100 mm/hr (0-30)
[2018-11-11] MEDS: INSULIN SLIDING SCALE (NOVOLOG) 1 VIAL SQ SCH ×3 (13:03→22:45)
[2018-11-11] MEDS: SEVELAMER CARBONATE 800 MG TAB (FP) PO SCH ×2 (13:10→18:34)
[2018-11-11] MEDS: MIDODRINE HCL 5 MG TABLET PO SCH ×2 (13:48→18:35)
[2018-11-11] MEDS: HEPARIN NA (PORCINE) 5,000 UNITS/ML 1ML VIAL IVPUSH SCH ×3 (14:35→16:35)
--- NOTE | 2018-11-11 15:09 | CON.ID ---
Consult Consult Specialty:: infectious disease Referred by:: dr gallegos Reason for Consultation:: nonhealing TMA wound - History of Present Illness Chief Complaint: non healing TMA wound History of Present Illness: 78 yo female esrd on HD hiatory of DM, s/p Right TMA for gangrene of multiple toes 09/04/18 she has been followed at wound care notes originally treated with santyl, now with skin grafts admitted for further evaluation denies fevers or chills left big toe has improved significantly mouth swelling with penicillin records reviewed -received cefazolin 08/30 without complication attending HBO currently at the [facility] - History Source History Provided By: Patient, Medical Record Limitations to Obtaining History: No Limitations - 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 No: CAD Gastrointestinal: Yes: Constipation Renal/: Yes: Renal Failure, Hemodialysis, Other (renal cysts see HPI) Endocrine: Yes: Diabetes Mellitus Additional Medical History: Right superficial breast mass which she noted for the last 2 weeks and has enlarged in size. Minimal drainage has been noted. - Past Surgical History Past Surgical History: Yes: Appendectomy, AV Fistula/Graft, Cholecystectomy, Hernia Repair Additional Surgical History: right TMA- 09/04/18 - Alcohol/Substance Use Hx Alcohol Use: No History of Substance Use: reports: None - Smoking History Smoking history: Never smoked Have you smoked in the past 12 months: No - Social History Usual Living Arrangement: [facility] ADL: Support Services History of Recent Travel: No Home Medications - Allergies Allergies/Adverse Reactions: Allergies Allergy/AdvReac Type Severity Reaction Status Date / Time Penicillins Allergy Swelling Verified 11/11/18 08:32 - Home Medications Home Medications: Ambulatory Orders Glimepiride [Amaryl -] 4 mg PO DAILY 08/20/18 Metoprolol Succinate [Toprol Xl -] 25 mg PO DAILY 08/20/18 Sertraline HCl [Zoloft -] 25 mg PO DAILY 08/20/18 Sevelamer Carbonate [Renvela] 2,400 mg PO ASDIR 08/20/18 Sodium Bicarbonate 650 mg PO DAILY 08/20/18 Vitamin B Comp W-C [Nephro-Mahi -] 1 tablet PO DAILY tablet 09/11/18 Midodrine HCl 10 mg PO DAILY 09/26/18 Glimepiride [Amaryl -] 4 mg PO DAILY 11/11/18 Insulin (Levemir) [Levemir Vial] 32 units SQ AM 11/11/18 Simvastatin [Zocor -] 40 mg PO HS 11/11/18 Warfarin Sodium [Coumadin] 10 mg PO DAILY 11/11/18 Family Disease History - Family Disease History Family Disease History: Diabetes: Sister (), CA: Father (prostate Ca; ) Physical Exam Vital Signs: Vital Signs Temperature 98.4 F 11/11/18 13:30 Pulse Rate 71 11/11/18 14:35 Respiratory Rate 18 11/11/18 14:35 Blood Pressure 118/74 11/11/18 14:35 O2 Sat by Pulse Oximetry (%) 97 11/11/18 11:46 Constitutional: Yes: Well Nourished, No Distress, Calm Eyes: Yes: Conjunctiva Clear HENT: Yes: Atraumatic, Normocephalic Neck: Yes: Supple, Trachea Midline Cardiovascular: Yes: Regular Rate and Rhythm Respiratory: Yes: Regular, CTA Bilaterally Gastrointestinal: Yes: Normal Bowel Sounds, Soft ...Rectal Exam: Yes: Deferred Extremities: Yes: Amputation (right foot TMA incision is slightly open, some creamy discharge noted and cultured no open lesions left foot- big toe well healed) Edema: No Peripheral Pulses WNL: No (diminished pedal pulses) Neurological: Yes: Alert, Oriented Labs: CBC, BMP 11/11/18 10:40 11/11/18 09:15 blood cultures pending Imaging - Results X-ray: Pending (foot xray pending) Problem List - Problems (1) Non-healing amputation site Code(s): T87.89 - OTHER COMPLICATIONS OF AMPUTATION STUMP (2) ESRD (end stage renal disease) on dialysis Code(s): N18.6 - END STAGE RENAL DISEASE; Z99.2 - DEPENDENCE ON RENAL DIALYSIS (3) Penicillin allergy Code(s): Z88.0 - ALLERGY STATUS TO PENICILLIN Assessment/Plan we sent a wound culture noted esr and crp are evaluated vascular evaluation pending xray pending will start vanco/azactam pending cultures adjusted for esrd
[2018-11-11] MEDS ORDERED: VANCOMYCIN 1 GRAM (PRE-DOCKED) 1,000 MG/250 ML BAG IVPB ONE (15:13)
[2018-11-11 15:15] LABS: INR 3.5 (0.83-1.09); PROTHROMBIN TIME (PATIENT) 41.8 SEC (9.7-13.0)
--- NOTE | 2018-11-11 16:04 | CONSULT ---
Consult Consult Specialty:: Podiatry Reason for Consultation:: Gangarene right foot. - History of Present Illness History of Present Illness: Gangarene right foot. S/P excision of toes and 5th met head right. - Past Medical History [employer]: Yes: CVA Cardio/Vascular: Yes: AFIB, CHF, HTN, Hyperlipdemia. No: CAD Gastrointestinal: Yes: Constipation Renal/: Yes: Renal Failure, Hemodialysis, Other (renal cysts see HPI) Endocrine: Yes: Diabetes Mellitus Additional Medical History: Right superficial breast mass which she noted for the last 2 weeks and has enlarged in size. Minimal drainage has been noted. - Past Surgical History Past Surgical History: Yes: Appendectomy, AV Fistula/Graft, Cholecystectomy, Hernia Repair Additional Surgical History: right TMA- 09/04/18 - Alcohol/Substance Use Hx Alcohol Use: No History of Substance Use: reports: None - Smoking History Smoking history: Never smoked Have you smoked in the past 12 months: No - Social History Usual Living Arrangement: Half-Way ADL: Support Services History of Recent Travel: No Home Medications - Allergies Allergies/Adverse Reactions: Allergies Allergy/AdvReac Type Severity Reaction Status Date / Time Penicillins Allergy Swelling Verified 11/11/18 08:32 - Home Medications Home Medications: Ambulatory Orders Glimepiride [Amaryl -] 4 mg PO DAILY 08/20/18 Metoprolol Succinate [Toprol Xl -] 25 mg PO DAILY 08/20/18 Sertraline HCl [Zoloft -] 25 mg PO DAILY 08/20/18 Sevelamer Carbonate [Renvela] 2,400 mg PO ASDIR 08/20/18 Sodium Bicarbonate 650 mg PO DAILY 08/20/18 Vitamin B Comp W-C [Nephro-Mahi -] 1 tablet PO DAILY tablet 09/11/18 Midodrine HCl 10 mg PO DAILY 09/26/18 Glimepiride [Amaryl -] 4 mg PO DAILY 11/11/18 Insulin (Levemir) [Levemir Vial] 32 units SQ AM 11/11/18 Simvastatin [Zocor -] 40 mg PO HS 11/11/18 Warfarin Sodium [Coumadin] 10 mg PO DAILY 11/11/18 Family Disease History - Family Disease History Family Disease History: Diabetes: Sister (), CA: Father (prostate Ca; ) Physical Exam Vital Signs: Vital Signs Temperature 98.4 F 11/11/18 13:30 Pulse Rate 73 11/11/18 15:35 Respiratory Rate 18 11/11/18 15:35 Blood Pressure 124/57 L 11/11/18 15:35 O2 Sat by Pulse Oximetry (%) 97 11/11/18 11:46 Extremities: Yes: Other (+gangarene right foot, +necrosis, +resorption of bone 1st met head most likely om,) Labs: CBC, BMP 11/11/18 10:40 11/11/18 09:15 Imaging - Results X-ray: Report Reviewed, Image Reviewed Assessment/Plan gangarene om pvd Pt is scheduled for revision of amputation right forefoot to healthy tissue. Vascular to clear. INR needs to be lowered. Betadine dressing right foot. MRI right foot. will follow.
[2018-11-11] MEDS: AZTREONAM 0.5 GM in DEXTROSE 5%-WATER - 50 ML IVPB SCH (18:34)
[2018-11-11 19:56] LABS: BLOOD UREA NITROGEN 19.2 mg/dL (7-18); CREATININE 3.2 mg/dL (0.55-1.3)
[2018-11-11] MEDS: HEPARIN NA (PORCINE) 5,000 UNITS/ML 1ML VIAL SQ SCH (22:44)
[2018-11-11] MEDS: ACETAMINOPHEN 325 MG TABLET (FP) PO PRN (22:44)
[2018-11-11] MEDS: ATORVASTATIN CA 40 MG TABLET (FP) PO SCH (22:45)
[2018-11-12] MEDS: AZTREONAM 0.5 GM in DEXTROSE 5%-WATER - 50 ML IVPB SCH ×2 (03:00→14:55)
[2018-11-12] MEDS: INSULIN SLIDING SCALE (NOVOLOG) 1 VIAL SQ SCH ×4 (06:53→22:30)
[2018-11-12] MEDS: ACETAMINOPHEN 325 MG TABLET (FP) PO PRN (06:53)
[2018-11-12] MEDS ORDERED: INSULIN (NOVOLOG) ASPART 100 UNITS/ML 10ML VIAL ONE (07:43)
--- NOTE | 2018-11-12 07:46 | CONSULT ---
- Consultation REQUESTING PROVIDER: Angelica Alarcon - Vascular Surgery CONSULT REQUEST: We have been asked to surgically evaluate this patient for infection to rt foot digital amp site PCP: Jacqueline Cazares HPI:Called to remyal 78 yo female w/ PMHx as noted below. Patient is well know to Vascular Surgery Service. Admitted for non-healing right foot wound s/p Amputation of toes 1-5 & 5th met head resection right. Harvesting of plantar flap 09/04/18 (Anne)...despite HBO Therapy as out-patient. States she was last seen by Anne last 11/07/18 to go to ER so she may be admitted for TMA of right forefoot 09/12/18. ID following and started patient on Vanco and Aztreonam. Wound cultures pending. Denies n/v/f/c. Denies CP, palpitations, SOB or SOSA. Denies cough, wheezing or hemoptysis. PMHx: ESRD (HD- MWF), DM, Afib (on Coumadin), CHF, HTN, HLD, Anemia, CVA, Constipation, Renal Cysts, Chronic systolic CHF with moderate LV systolic dysfunction, PAD PSHx: Amputation of toes 1-5 & 5th met head resection right. Harvesting of plantar flap 09/04/18 (Anne) Aortogram, RLE angiogram 08/30/18 (Dorian) Appendectomy RUE AV Fistula/Graft Cholecystectomy Hernia Repair Home Medications Glimepiride [Amaryl -] 4 mg PO DAILY 08/20/18 Metoprolol Succinate [Toprol Xl -] 25 mg PO DAILY 08/20/18 Sertraline HCl [Zoloft -] 25 mg PO DAILY 08/20/18 Sevelamer Carbonate [Renvela] 2,400 mg PO ASDIR 08/20/18 Sodium Bicarbonate 650 mg PO DAILY 08/20/18 Vitamin B Comp W-C [Nephro-Mahi -] 1 tablet PO DAILY tablet 09/11/18 Midodrine HCl 10 mg PO DAILY 09/26/18 Glimepiride [Amaryl -] 4 mg PO DAILY 11/11/18 Insulin (Levemir) [Levemir Vial] 32 units SQ AM 11/11/18 Simvastatin [Zocor -] 40 mg PO HS 11/11/18 Warfarin Sodium [Coumadin] 10 mg PO DAILY 11/11/18 Allergies: NKDA ROS: CONSTITUTIONAL: Absent: diaphoresis, generalized weakness, malaise, loss of appetite, weight change CARDIOVASCULAR: Absent: syncope, AFIB, lightheadedness RESPIRATORY: Absent: stridor GASTROINTESTINAL:Absent: abdominal pain, abdominal distension, constipation, melena, hematochezia GENITOURINARY: Absent: dysuria, frequency, urgency, hesitancy, hematuria, flank pain MUSCULOSKELETAL: Absent: myalgia, arthralgia, joint swelling, back pain, neck pain SKIN: Absent: rash, itching, pallor HEMATOLOGIC/IMMUNOLOGIC: Absent: easy bleeding, easy bruising, lymphadenopathy NEUROLOGIC: Absent: headache, focal weakness, paresthesias, dizziness, seizure, mental status changes PSYCHIATRIC: Absent: anxiety, depression, suicidal or homicidal ideation, hallucinations. PE: GENERAL: A&O. NAD. HEAD: NC. AT. EYES: PERRL, sclera anicteric, conjunctiva clear. NECK: Normal ROM, supple without lymphadenopathy, JVD, or masses. LUNGS: Clear to auscultation bilat anteriorly. No wheezes, and no crackles. No accessory muscle use. HEART: AFIB (rate controlled) ABDOMEN: Soft. NT. ND. MUSCULOSKELETAL: No CVA tenderness bilat UE: RUE AVF w/ good thrill. 2+ pulses, warm, well-perfused. No cyanosis. Cap refill <2 seconds. No peripheral edema. RLE: non-healing surgical site right foot. + gangrenous. + purulent discharge. Dopplerable DP. No peripheral edema. PSYCH: Cooperative. Good eye contact. Appropriate mood and affect. SKIN: Warm, dry, normal turgor, no rashes or lesions noted. Last Vital Signs Temp Pulse Resp BP Pulse Ox 98.4 F 80 20 100/50 L 97 11/12/18 06:00 11/12/18 06:00 11/12/18 06:00 11/12/18 06:00 11/11/18 21:00 CBC TREND 11/11/18 11/12/18 10:40 06:30 WBC 11.1 H Pending Hgb 9.3 L Pending Hct 27.9 L Pending Plt Count 346 D Pending INR TREND 11/11/18 11/12/18 13:50 06:30 INR 3.50 H 2.43 H Problem List - Problems (1) Non-healing amputation site Assessment/Plan: Podiarty note appreciated. Per Samantha's note, he is taking patient to OR possibly 11/12/18 for RIGHT FOOT TMA. 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 Popliteal Artery patent. There is 3 vessel runoff below the knee. Peroneal is patent into the foot. Posterior Tibial Artery at level of ankle. Microvascular disease in foot. TMA recommended at that time. No further Vascular intervention needed. Remaining wound care will be provided by Podiatry s/p surgery Re-consult Vascular PRN. On behalf of Dr. Alarcon, thank you for the opportunity to participate in your patient's care. Code(s): T87.89 - OTHER COMPLICATIONS OF AMPUTATION STUMP (2) ESRD (end stage renal disease) on dialysis Code(s): N18.6 - END STAGE RENAL DISEASE; Z99.2 - DEPENDENCE ON RENAL DIALYSIS (3) Atrial fibrillation Code(s): I48.91 - UNSPECIFIED ATRIAL FIBRILLATION Qualifiers: Atrial fibrillation type: chronic Qualified Code(s): I48.2 - Chronic atrial fibrillation (4) Diabetes Code(s): E11.9 - TYPE 2 DIABETES MELLITUS WITHOUT COMPLICATIONS Qualifiers: Diabetes mellitus type: type 2 (5) HTN (hypertension) Code(s): I10 - ESSENTIAL (PRIMARY) HYPERTENSION Qualifiers: Hypertension type: essential hypertension Qualified Code(s): I10 - Essential (primary) hypertension (6) Obesity Code(s): E66.9 - OBESITY, UNSPECIFIED Visit type - Case Type Case Type: ED Admission - Emergency Emergency Visit: Yes ED Registration Date: 11/11/18 Care time: The patient presented to the Emergency Department on the above date and was hospitalized for further evaluation of their emergent condition. - New patient This patient is new to me today: Yes Date on this admission: 11/12/18
[2018-11-12 07:53] LABS: INR 2.43 (0.83-1.09); PROTHROMBIN TIME (PATIENT) 28.9 SEC (9.7-13.0)
[2018-11-12 07:56] LABS: ACTIVATED PTT 44.9 SECONDS (25.2-36.5)
[2018-11-12 08:14] LABS: ALBUMIN 2.7 g/dl (3.4-5.0); ALK PHOS 52 U/L (45-117); ANION GAP 9 MMOL/L (8-16); BILIRUBIN,TOTAL 0.4 mg/dL (0.2-1); CALCIUM 8.4 mg/dL (8.5-10.1); CHLORIDE 102 mmol/L (98-107); CO2 30 mmol/L (21-32); CREATININE 7.1 mg/dL (0.55-1.3); GLUCOSE,RANDOM 62 mg/dL (74-106); MAGNESIUM 1.9 mg/dL (1.8-2.4); PHOSPHOROUS 3.3 mg/dL (2.5-4.9); POTASSIUM 4.3 mmol/L (3.5-5.1); SGOT/AST 9 U/L (15-37); SGPT/ALT 11 U/L (13-61); SODIUM 141 mmol/L (136-145); TOT PROT 6.6 g/dl (6.4-8.2)
[2018-11-12 08:34] LABS: HEMATOCRIT 29.6 % (32.4-45.2); HEMOGLOBIN 9.7 GM/dL (10.7-15.3); MCH 29.9 pg (25.7-33.7); MCHC 32.8 g/dl (32.0-36.0); MEAN CELL VOLUME 91.2 fl (80-96); MEAN PLT VOLUME 8.7 fl (7.5-11.1); PLATELET COUNT 234 K/MM3 (134-434); RBC 3.24 M/mm3 (3.60-5.2); RDW 15.5 % (11.6-15.6); WHITE BLOOD COUNT 8.1 K/mm3 (4.0-10.0)
[2018-11-12] MEDS: SEVELAMER CARBONATE 800 MG TAB (FP) PO SCH ×3 (08:51→17:32)
[2018-11-12] MEDS: metoPROLOL SUCCINATE 25 MG TAB.SR.24H (FP) PO SCH (10:43)
[2018-11-12] MEDS: SERTRALINE HCL 25 MG TABLET (FP) PO SCH (11:02)
[2018-11-12] MEDS: HEPARIN NA (PORCINE) 5,000 UNITS/ML 1ML VIAL SQ SCH (11:02)
[2018-11-12] MEDS: MIDODRINE HCL 5 MG TABLET PO SCH ×3 (11:04→22:27)
--- NOTE | 2018-11-12 11:22 | PN ---
Progress Note, Physician Chief Complaint: Gangarene right foot. S/P excision of toes and 5th met head right. History of Present Illness: NAD Right foot draining Seen by Podiatry Awaiting MRI - Current Medication List Current Medications: Active Medications Acetaminophen (Tylenol -) 650 mg PO Q6H PRN PRN Reason: PAIN LEVEL 1-5 Last Admin: 11/12/18 06:53 Dose: 650 mg Atorvastatin Calcium (Lipitor -) 40 mg PO HS [facility] Last Admin: 11/11/18 22:45 Dose: 40 mg Heparin Sodium (Porcine) (Heparin -) 5,000 unit SQ BID [facility] Last Admin: 11/12/18 11:02 Dose: 5,000 unit Sodium Chloride (Normal Saline -) 250 mls @ 3,000 mls/hr IV PRN PRN PRN Reason: Hypotension during Dialysis Stop: 11/12/18 12:05 Sodium Chloride (Normal Saline -) 250 mls @ 3,000 mls/hr IV PRN PRN PRN Reason: Hypotension during Dialysis Stop: 11/12/18 12:14 Aztreonam 0.5 gm/ Dextrose 50 mls @ 100 mls/hr IVPB Q12H [facility]; Protocol Last Admin: 11/12/18 03:00 Dose: 100 mls/hr Insulin Aspart (Novolog Vial Sliding Scale -) 1 vial SQ ACHS [facility]; Protocol Last Admin: 11/12/18 06:53 Dose: Not Given Metoprolol Succinate (Toprol Xl -) 25 mg PO DAILY [facility] Last Admin: 11/12/18 10:43 Dose: Not Given Midodrine (Proamatine -) 5 mg PO TID-MID [facility] Last Admin: 11/12/18 11:04 Dose: 5 mg Sertraline HCl (Zoloft -) 25 mg PO DAILY [facility] Last Admin: 11/12/18 11:02 Dose: 25 mg Sevelamer Carbonate (Renvela -) 2,400 mg PO TIDCM [facility] Last Admin: 11/12/18 08:51 Dose: 2,400 mg - Objective Vital Signs: Vital Signs Temperature 98.4 F 11/12/18 06:00 Pulse Rate 89 11/12/18 09:25 Respiratory Rate 20 11/12/18 09:25 Blood Pressure 100/50 L 11/12/18 09:25 O2 Sat by Pulse Oximetry (%) 97 11/11/18 21:00 Constitutional: Yes: Well Nourished, No Distress, Calm Cardiovascular: Yes: Regular Rate and Rhythm Respiratory: Yes: Regular Gastrointestinal: Yes: WNL Genitourinary: Yes: WNL Edema: Yes (Right foot non pitting) Peripheral Pulses WNL: Yes Wound/Incision: Yes: Dressing Dry and Intact (R foot) Neurological: Yes: Alert, Oriented Psychiatric: Yes: Alert, Oriented Labs: CBC, BMP 11/12/18 06:30 11/12/18 06:30 INR, PTT INR 2.43 (0.83-1.09) H 11/12/18 06:30 Assessment/Plan (1) Wound of foot Assessment/Plan: -podiatry consult appreciated -foot xray reviewed -MRI RLE pending -ID on board -vascular consult -IV abx -WC+ BC pending Code(s): S91.309A - UNSPECIFIED OPEN WOUND, UNSPECIFIED FOOT, INITIAL ENCOUNTER (2) ESRD (end stage renal disease) on dialysis Assessment/Plan: -Nephrology on board -HD as per renal Code(s): N18.6 - END STAGE RENAL DISEASE; Z99.2 - DEPENDENCE ON RENAL DIALYSIS (3) Anemia Assessment/Plan: -epogen with HD -Monitor H/H -[place] transfusion for Hg< 7.0 to avoid fluid overload Code(s): D64.9 - ANEMIA, UNSPECIFIED Qualifiers: Anemia type: other cause Other causes of anemia: chronic disease, kidney (4) Atrial fibrillation Assessment/Plan: -Continue toprol xl and coumadin -INR-2.64 -restart warfarin -gradually adjust dosage as needed -D/C heparin PPX Code(s): I48.91 - UNSPECIFIED ATRIAL FIBRILLATION Qualifiers: Atrial fibrillation type: chronic Qualified Code(s): I48.2 - Chronic atrial fibrillation (5) Diabetes Assessment/Plan: -BGM AC HS -hgba1c 6.4 -Novolog sliding scale -Renal diabetic diet Code(s): E11.9 - TYPE 2 DIABETES MELLITUS WITHOUT COMPLICATIONS Qualifiers: Diabetes mellitus type: type 2 (6) HLD (hyperlipidemia) Assessment/Plan: -Continue atorvastatin Code(s): E78.5 - HYPERLIPIDEMIA, UNSPECIFIED
--- NOTE | 2018-11-12 12:48 | EKG ---
Test Reason : Blood Pressure : / mmHG Vent. Rate : 072 BPM Atrial Rate : 357 BPM P-R Int : 000 ms QRS Dur : 110 ms QT Int : 446 ms P-R-T Axes : 000 -38 -85 degrees QTc Int : 488 ms POOR DATA QUALITY, INTERPRETATION MAY BE ADVERSELY AFFECTED ATRIAL FIBRILLATION LEFT AXIS DEVIATION LOW VOLTAGE QRS INCOMPLETE LEFT BUNDLE BRANCH BLOCK ABNORMAL ECG Confirmed by Gigi Lentz MD ([id number]) on 11/12/2018 12:48:31 PM Referred By: Confirmed By:Gigi Lentz MD
--- NOTE | 2018-11-12 15:46 | PN ---
Progress Note (short form) - Note Progress Note: Renal follow up for ESRD on HD Pt seen and examined at the bedside awake and alert no acute complaints tolerated dialysis well yesterday no sob, cp, abd pain, fever or chills continues to have drainage from right foot Vital Signs Temperature 98.3 F 11/12/18 14:00 Pulse Rate 88 11/12/18 14:00 Respiratory Rate 18 11/12/18 14:00 Blood Pressure 107/47 L 11/12/18 14:00 O2 Sat by Pulse Oximetry (%) 97 11/11/18 21:00 Intake & Output 11/09/18 11/10/18 11/11/18 11/12/18 23:59 23:59 23:59 23:59 Intake Total 450 150 Balance 450 150 Weight 86.183 kg NAD neck supple, no JVD RRR, no M/R CTA soft NT/ND no LE edema, clubbing or cyanosis right foot in dressing CBC, BMP 11/12/18 06:30 11/12/18 06:30 Current Medications Acetaminophen (Tylenol -) 650 mg PO Q6H PRN PRN Reason: PAIN LEVEL 1-5 Last Admin: 11/12/18 06:53 Dose: 650 mg Atorvastatin Calcium (Lipitor -) 40 mg PO HS [facility] Last Admin: 11/11/18 22:45 Dose: 40 mg Aztreonam 0.5 gm/ Dextrose 50 mls @ 100 mls/hr IVPB Q12H [facility]; Protocol Last Admin: 11/12/18 14:55 Dose: 100 mls/hr Insulin Aspart (Novolog Vial Sliding Scale -) 1 vial SQ ACHS [facility]; Protocol Last Admin: 11/12/18 12:02 Dose: Not Given Metoprolol Succinate (Toprol Xl -) 25 mg PO DAILY [facility] Last Admin: 11/12/18 10:43 Dose: Not Given Midodrine (Proamatine -) 5 mg PO TID-MID [facility] Last Admin: 11/12/18 14:56 Dose: 5 mg Sertraline HCl (Zoloft -) 25 mg PO DAILY [facility] Last Admin: 11/12/18 11:02 Dose: 25 mg Sevelamer Carbonate (Renvela -) 2,400 mg PO TIDCM [facility] Last Admin: 11/12/18 12:09 Dose: 2,400 mg Warfarin Sodium (Coumadin -) 5 mg PO DAILY@1800 [facility] 78 year old woman with hx of ESRD on HD (MWF), CAD, PVD, DM type 2, CVA, Afib who presents with non-healing right foot wound. #ESRD on HD (MWF) #LE wound/PVD #CKD related Anemia #Leukocytosis #DM2 #CAD #Renal Osteodystrophy no acute indication for dialysis today, next treatment planned for tomorrow Renal diet, 1.2L fluid restriction on Aztreonam for wound infection pending cultures surgical options as per podiatry MRI of lower extremity ordered Alon Page DO
--- NOTE | 2018-11-12 17:10 | PN ---
Progress Note (short form) - Note Progress Note: Patient seen in bed. vss wbc=8.1, INR still elevated, +gangarene right foot gangarene om Read and appreciated vascular note. Patient consented for debridement bone and softt tissue, resection of 1,2,3,4 metatarsal heads. Discussed bka vs tma. Patient wants to save leg. INR needs to come down for surgery on . Continue betadine dressing change to right foot. awaiting MRI results. Please lower INR and maximize patient for OR . INR today. FFP infusion if still to high tooday.Type and screen today.
[2018-11-12] MEDS ORDERED: WARFARIN NA 5 MG TABLET (UD) PO SCH (18:00)
[2018-11-12] MEDS: ATORVASTATIN CA 40 MG TABLET (FP) PO SCH (22:26)
[2018-11-13] MEDS ORDERED: PT OWN MED DRAWER 7, Y5N ONE ×4 (00:04→18:31)
[2018-11-13] MEDS: AZTREONAM 0.5 GM in DEXTROSE 5%-WATER - 50 ML IVPB SCH ×2 (03:45→17:19)
[2018-11-13] MEDS: INSULIN SLIDING SCALE (NOVOLOG) 1 VIAL SQ SCH ×4 (06:07→22:09)
[2018-11-13] MEDS: SEVELAMER CARBONATE 800 MG TAB (FP) PO SCH ×3 (08:58→18:33)
[2018-11-13] MEDS: MIDODRINE HCL 5 MG TABLET PO SCH ×3 (10:00→18:32)
[2018-11-13] MEDS ORDERED: SODIUM CHLORIDE 250 ML IV PRN (10:03)
[2018-11-13 10:36] LABS: HEMOGLOBIN 8.4 GM/dL (10.7-15.3); MCH 30.1 pg (25.7-33.7); MCHC 33.4 g/dl (32.0-36.0); MEAN PLT VOLUME 8.5 fl (7.5-11.1); PLATELET COUNT 221 K/MM3 (134-434); RBC 2.78 M/mm3 (3.60-5.2); RDW 15.5 % (11.6-15.6); WHITE BLOOD COUNT 10.4 K/mm3 (4.0-10.0)
[2018-11-13] MEDS ORDERED: EPOETIN ALFA 10,000 UNIT/1 ML VIAL IVPUSH ONE (11:00)
[2018-11-13 11:11] LABS: BLOOD UREA NITROGEN 60.6 mg/dL (7-18); CALCIUM 8.4 mg/dL (8.5-10.1); PHOSPHOROUS 3.4 mg/dL (2.5-4.9); POTASSIUM 4.4 mmol/L (3.5-5.1)
--- NOTE | 2018-11-13 11:11 | PN ---
Progress Note, Physician Chief Complaint: Gangarene right foot. S/P excision of toes and 5th met head right. History of Present Illness: NAD Right foot draining MRI-first,third,fourth and fifth distal metatarsal osteomyelitis Seen by Podiatry- plan for OR-for debridement of bone and soft tissue, resection of 1,2,3,4 metatarsal heads was given her routine warfarin yesterday,due to lack of care plan and decision to proceed to OR. Will hold warfarin today Check daily INR's - Current Medication List Current Medications: Active Medications Acetaminophen (Tylenol -) 650 mg PO Q6H PRN PRN Reason: PAIN LEVEL 1-5 Last Admin: 11/12/18 06:53 Dose: 650 mg Atorvastatin Calcium (Lipitor -) 40 mg PO HS [facility] Last Admin: 11/12/18 22:26 Dose: 40 mg Aztreonam 0.5 gm/ Dextrose 50 mls @ 100 mls/hr IVPB Q12H [facility]; Protocol Last Admin: 11/13/18 03:45 Dose: 100 mls/hr Insulin Aspart (Novolog Vial Sliding Scale -) 1 vial SQ ACHS [facility]; Protocol Last Admin: 11/13/18 06:07 Dose: Not Given Metoprolol Succinate (Toprol Xl -) 25 mg PO DAILY [facility] Last Admin: 11/12/18 10:43 Dose: Not Given Midodrine (Proamatine -) 5 mg PO TID-MID [facility] Last Admin: 11/12/18 22:27 Dose: 5 mg Sertraline HCl (Zoloft -) 25 mg PO DAILY [facility] Last Admin: 11/12/18 11:02 Dose: 25 mg Sevelamer Carbonate (Renvela -) 2,400 mg PO TIDCM [facility] Last Admin: 11/13/18 08:58 Dose: 2,400 mg - Objective Vital Signs: Vital Signs Temperature 98.6 F 11/13/18 09:45 Pulse Rate 87 11/13/18 11:00 Respiratory Rate 16 11/13/18 11:00 Blood Pressure 109/53 L 11/13/18 11:00 O2 Sat by Pulse Oximetry (%) 97 11/11/18 21:00 Constitutional: Yes: Well Nourished, No Distress, Calm Cardiovascular: Yes: Regular Rate and Rhythm Respiratory: Yes: Regular Gastrointestinal: Yes: Normal Bowel Sounds, Soft Musculoskeletal: Yes: WNL Extremities: Yes: WNL Edema: No Peripheral Pulses WNL: Yes Wound/Incision: Yes: Dressing Dry and Intact (rfoot) Neurological: Yes: Alert, Oriented Psychiatric: Yes: Alert, Oriented Labs: CBC, BMP 11/13/18 09:45 INR, PTT INR 2.43 (0.83-1.09) H 11/12/18 06:30 Assessment/Plan (1) Wound of foot Assessment/Plan: -podiatry consult appreciated -foot xray reviewed -MRI RLE pending -ID on board -vascular consult -IV abx -WC+ BC: Microbiology 11/11/18 10:40 Blood - Peripheral Venous Blood Culture - Preliminary NO GROWTH OBTAINED AFTER 48 HOURS, INCUBATION TO CONTINUE FOR 3 DAYS. 11/11/18 15:00 Ulcer Gram Stain - Final 11/11/18 15:00 Ulcer Wound Culture - Preliminary Presumptive Mrsa (Pbp2a Pos) 11/11/18 14:10 Blood - Peripheral Venous Blood Culture - Preliminary NO GROWTH OBTAINED AFTER 24 HOURS, INCUBATION TO CONTINUE FOR 4 DAYS. -Contact isolation Code(s): S91.309A - UNSPECIFIED OPEN WOUND, UNSPECIFIED FOOT, INITIAL ENCOUNTER (2) ESRD (end stage renal disease) on dialysis Assessment/Plan: -Nephrology on board -HD as per renal Code(s): N18.6 - END STAGE RENAL DISEASE; Z99.2 - DEPENDENCE ON RENAL DIALYSIS (3) Anemia Assessment/Plan: -epogen with HD -Monitor H/H -[facility] transfusion for Hg< 7.0 to avoid fluid overload Code(s): D64.9 - ANEMIA, UNSPECIFIED Qualifiers: Anemia type: other cause Other causes of anemia: chronic disease, kidney (4) Atrial fibrillation Assessment/Plan: -Continue toprol xl -hold warfarin for debridement -daily INR check Code(s): I48.91 - UNSPECIFIED ATRIAL FIBRILLATION Qualifiers: Atrial fibrillation type: chronic Qualified Code(s): I48.2 - Chronic atrial fibrillation (5) Diabetes Assessment/Plan: -BGM AC HS -hgba1c 6.4 -Novolog sliding scale -Renal diabetic diet Code(s): E11.9 - TYPE 2 DIABETES MELLITUS WITHOUT COMPLICATIONS Qualifiers: Diabetes mellitus type: type 2 (6) HLD (hyperlipidemia) Assessment/Plan: -Continue atorvastatin Code(s): E78.5 - HYPERLIPIDEMIA, UNSPECIFIED
[2018-11-13 11:55] LABS: CREATININE 8.5 mg/dL (0.55-1.3)
[2018-11-13 12:13] LABS: HBSAG SCREEN Negative (Negative); HEP A AB, IGM Negative (Negative); HEP B CORE AB, TOT Negative (Negative)
[2018-11-13 14:38] LABS: INR 1.7 (0.83-1.09); PROTHROMBIN TIME (PATIENT) 20.2 SEC (9.7-13.0)
[2018-11-13] MEDS: metoPROLOL SUCCINATE 25 MG TAB.SR.24H (FP) PO SCH (15:41)
[2018-11-13] MEDS ORDERED: VANCOMYCIN 1 GRAM (PRE-DOCKED) 1,000 MG/250 ML BAG IVPB ONE (15:55)
--- NOTE | 2018-11-13 16:06 | PN ---
Progress Note (short form) - Note Progress Note: wound culture from foot many pmns, gpc clusters- presumptive MRSA Vital Signs Period Temp Pulse Resp BP Sys/Prince Pulse Ox Last 24 Hr 98.2 F-99.0 F 79-100 16-20 88-122/42-60 cor-rrr lungs decreased bs at bases abd soft,nt ext dressing intact right foot MRI pending CBC, BMP 11/13/18 09:45 11/13/18 09:45 Microbiology 11/11/18 14:10 Blood - Peripheral Venous Blood Culture - Preliminary NO GROWTH OBTAINED AFTER 48 HOURS, INCUBATION TO CONTINUE FOR 3 DAYS. 11/11/18 10:40 Blood - Peripheral Venous Blood Culture - Preliminary NO GROWTH OBTAINED AFTER 48 HOURS, INCUBATION TO CONTINUE FOR 3 DAYS. 11/11/18 15:00 Ulcer Gram Stain - Final 11/11/18 15:00 Ulcer Wound Culture - Preliminary Presumptive Mrsa (Pbp2a Pos) vanco trough 6.2 a/p For TMA tomorrow contact isolation MRSA redose vancomycin today continue azactam for now esrd/hd d/w daughter at bedside Problem List - Problems (1) Non-healing amputation site Code(s): T87.89 - OTHER COMPLICATIONS OF AMPUTATION STUMP (2) ESRD (end stage renal disease) on dialysis Code(s): N18.6 - END STAGE RENAL DISEASE; Z99.2 - DEPENDENCE ON RENAL DIALYSIS (3) Penicillin allergy Code(s): Z88.0 - ALLERGY STATUS TO PENICILLIN
[2018-11-13] MEDS: SERTRALINE HCL 25 MG TABLET (FP) PO SCH (16:08)
--- NOTE | 2018-11-13 18:13 | PN ---
Progress Note (short form) - Note Progress Note: Renal follow up for ESRD on HD Pt seen and examined during dialysis earlier today BP low but stable access with good flow tolerating UF Vital Signs Temperature 98.4 F 11/13/18 14:00 Pulse Rate 96 H 11/13/18 15:30 Respiratory Rate 18 11/13/18 15:30 Blood Pressure 89/52 L 11/13/18 15:30 O2 Sat by Pulse Oximetry (%) 97 11/13/18 09:00 Intake & Output 11/10/18 11/11/18 11/12/18 11/13/18 23:59 23:59 23:59 23:59 Intake Total 450 730 900 Output Total 400 Balance 450 330 900 Weight 86.183 kg 109.769 kg NAD neck supple, no JVD RRR, no M/R CTA soft NT/ND no LE edema, clubbing or cyanosis right foot in dressing CBC, BMP 11/13/18 09:45 11/13/18 09:45 Current Medications Acetaminophen (Tylenol -) 650 mg PO Q6H PRN PRN Reason: PAIN LEVEL 1-5 Last Admin: 11/12/18 06:53 Dose: 650 mg Atorvastatin Calcium (Lipitor -) 40 mg PO HS [facility] Last Admin: 11/12/18 22:26 Dose: 40 mg Aztreonam 0.5 gm/ Dextrose 50 mls @ 100 mls/hr IVPB Q12H [facility]; Protocol Last Admin: 11/13/18 17:19 Dose: 100 mls/hr Insulin Aspart (Novolog Vial Sliding Scale -) 1 vial SQ ACHS [facility]; Protocol Last Admin: 11/13/18 15:05 Dose: Not Given Metoprolol Succinate (Toprol Xl -) 25 mg PO DAILY [facility] Last Admin: 11/13/18 15:41 Dose: Not Given Midodrine (Proamatine -) 5 mg PO TID-MID [facility] Last Admin: 11/13/18 16:09 Dose: 5 mg Sertraline HCl (Zoloft -) 25 mg PO DAILY [facility] Last Admin: 11/13/18 16:08 Dose: 25 mg Sevelamer Carbonate (Renvela -) 2,400 mg PO TIDCM [facility] Last Admin: 11/13/18 16:11 Dose: 2,400 mg 78 year old woman with hx of ESRD on HD (MWF), CAD, PVD, DM type 2, CVA, Afib who presents with non-healing right foot wound. #ESRD on HD (MWF) #LE wound/PVD #CKD related Anemia #Leukocytosis #DM2 #CAD #Renal Osteodystrophy Tolerating HD well today Vancomycin/Aztreonam for wound infection pending cultures surgical options as per podiatry Renal diet Alon Page DO
[2018-11-13] MEDS: ACETAMINOPHEN 325 MG TABLET (FP) PO PRN (22:08)
[2018-11-13] MEDS: ATORVASTATIN CA 40 MG TABLET (FP) PO SCH (22:08)
[2018-11-14] MEDS: AZTREONAM 0.5 GM in DEXTROSE 5%-WATER - 50 ML IVPB SCH ×2 (02:30→15:45)
[2018-11-14] MEDS: INSULIN SLIDING SCALE (NOVOLOG) 1 VIAL SQ SCH ×4 (07:39→21:07)
[2018-11-14] MEDS: SEVELAMER CARBONATE 800 MG TAB (FP) PO SCH ×3 (07:54→18:24)
[2018-11-14 08:33] LABS: INR 1.48 (0.83-1.09); PROTHROMBIN TIME (PATIENT) 17.5 SEC (9.7-13.0)
[2018-11-14] MEDS ORDERED: LIDOCAINE HCL 1%, 10 MG/ML (20ML VIAL) ONE (08:57)
[2018-11-14] MEDS ORDERED: BUPIVACAINE HCL/PF 0.5% (5MG/ML) 10 ML VIAL ONE (08:57)
[2018-11-14] MEDS ORDERED: MIDAZOLAM HCL 2 MG/2 ML SINGLE DOSE VIAL ONE (09:12)
[2018-11-14] MEDS ORDERED: METOPROLOL TARTRATE 5 MG/5 ML VIAL ONE ×2 (09:20→10:16)
[2018-11-14] MEDS ORDERED: LIDOCAINE HCL 1%, 10 MG/ML (20ML VIAL) PNB ONE (09:44)
[2018-11-14] MEDS ORDERED: BACITRACIN 50,000 UNITS VIAL TP ONE (10:06)
--- NOTE | 2018-11-14 10:35 | OP ---
Operative Note - Note: Operative Date: 11/14/18 Pre-Operative Diagnosis: Gangarene with osteomyelitis right foot. Operation: Debridement of bone and soft tissue right foot with excision of 1st, 2nd, 3rd,or 4th metatarsal heads. Bone culture and deep wound culture. Findings: Necrotic bone and soft tissue right foot. Post-Operative Diagnosis: Same as Pre-op Surgeon: Kajal Rodríguez Secretary Of Police: Roman Kate Anesthesia: Local, MAC Specimens Removed: bone and soft tissue Estimated Blood Loss (mls): 30 Instrument used (Debridements only): bone and soft tissue Operative Report Dictated: No
[2018-11-14] MEDS: MIDODRINE HCL 5 MG TABLET PO SCH ×3 (11:01→18:29)
[2018-11-14] MEDS ORDERED: ONDANSETRON 4 MG/2 ML VIAL IVPUSH PRN (11:18)
[2018-11-14] MEDS: SERTRALINE HCL 25 MG TABLET (FP) PO SCH (12:06)
[2018-11-14] MEDS: metoPROLOL SUCCINATE 25 MG TAB.SR.24H (FP) PO SCH (12:06)
--- NOTE | 2018-11-14 13:03 | PN ---
Progress Note, Physician Chief Complaint: Gangrene R foot ESRD DM History of Present Illness: Previous notes and events reviewed awake and alert NAD POD #0 for resection R foot metatarsal no complaints of pain - Current Medication List Current Medications: Active Medications Acetaminophen (Tylenol -) 650 mg PO Q6H PRN PRN Reason: PAIN LEVEL 1-5 Atorvastatin Calcium (Lipitor -) 40 mg PO HS [facility] Fentanyl (Sublimaze Injection -) 50 mcg IVPUSH [id number] PRN PRN Reason: PAIN-PACU ORDER X 4 DOSES ONLY Lactated Ringer's (Lactated Ringers Solution) 1,000 mls @ 125 mls/hr IV ASDIR [facility] Aztreonam 0.5 gm/ Dextrose 50 mls @ 100 mls/hr IVPB Q12H [facility]; Protocol Insulin Aspart (Novolog Vial Sliding Scale -) 1 vial SQ ACHS [facility]; Protocol Metoprolol Succinate (Toprol Xl -) 25 mg PO DAILY [facility] Midodrine (Proamatine -) 5 mg PO TID-MID [facility] Ondansetron HCl (Zofran Injection) 4 mg IVPUSH Q6H PRN PRN Reason: NAUSEA AND/OR VOMITING Sertraline HCl (Zoloft -) 25 mg PO DAILY [facility] Sevelamer Carbonate (Renvela -) 2,400 mg PO TIDCM [facility] - Objective Vital Signs: Vital Signs Temperature 98.6 F 11/14/18 12:00 Pulse Rate 77 11/14/18 12:00 Respiratory Rate 18 11/14/18 12:00 Blood Pressure 102/52 L 11/14/18 12:00 O2 Sat by Pulse Oximetry (%) 95 11/14/18 12:00 Constitutional: Yes: No Distress, Calm Eyes: Yes: Conjunctiva Clear HENT: Yes: Atraumatic Cardiovascular: Yes: Regular Rate and Rhythm Respiratory: Yes: Regular, CTA Bilaterally Gastrointestinal: Yes: Normal Bowel Sounds, Soft Musculoskeletal: Yes: Muscle Weakness Extremities: Yes: WNL Edema: No Wound/Incision: Yes: Dressing Dry and Intact Neurological: Yes: Alert, Oriented Psychiatric: Yes: Alert, Oriented Labs: CBC, BMP 11/13/18 09:45 11/13/18 09:45 INR, PTT INR 1.48 (0.83-1.09) H 11/14/18 06:10 Problem List - Problems (1) ESRD (end stage renal disease) on dialysis Assessment/Plan: -renal on board -continue dialysis on scheduled days -BUN/Cr 60.6/8.5 -monitor renal function Code(s): N18.6 - END STAGE RENAL DISEASE; Z99.2 - DEPENDENCE ON RENAL DIALYSIS (2) Gangrene Assessment/Plan: -Podiatry on board -s/p R foot transmetatarsal amputation -wound culture positive -Azactam Code(s): I96 - GANGRENE, NOT ELSEWHERE CLASSIFIED (3) HLD (hyperlipidemia) Assessment/Plan: -Atorvastatin Code(s): E78.5 - HYPERLIPIDEMIA, UNSPECIFIED (4) Type 2 diabetes mellitus with diabetic peripheral angiopathy without gangrene Assessment/Plan: -BGM ACHS -ISS -diabetic diet -HgA1c 6.4% Code(s): E11.51 - TYPE 2 DIABETES W DIABETIC PERIPHERAL ANGIOPATH W/O GANGRENE Qualifiers: Diabetes mellitus halfway insulin use: with ferry terminal supervisor use Qualified Code( s): E11.51 - Type 2 diabetes mellitus with diabetic peripheral angiopathy without gangrene; Z79.4 - long term care administrator (current) use of insulin (5) Atrial fibrillation Assessment/Plan: -Coumadin -Metoprolol -daily INR, therapeutic goal 2-3 Code(s): I48.91 - UNSPECIFIED ATRIAL FIBRILLATION Qualifiers: Atrial fibrillation type: chronic Qualified Code(s): I48.2 - Chronic atrial fibrillation (6) Hypotension Assessment/Plan: -[place] Code(s): I95.9 - HYPOTENSION, UNSPECIFIED Assessment/Plan see problem list
[2018-11-14] MEDS ORDERED: PT OWN MED DRAWER 7, Y5N ONE ×2 (13:11→18:28)
[2018-11-14] MEDS: ACETAMINOPHEN 325 MG TABLET (FP) PO PRN ×2 (16:02→21:06)
[2018-11-14] MEDS ORDERED: SODIUM CHLORIDE 250 ML IV PRN (16:14)
--- NOTE | 2018-11-14 16:14 | PN ---
Progress Note (short form) - Note Progress Note: Renal follow up for ESRD on HD Pt seen and examined at the bedside awake and alert s/p debridement procedure today no pain, sob, abd pain, N/V/D Vital Signs Temperature 98.1 F 11/14/18 12:50 Pulse Rate 90 11/14/18 15:24 Respiratory Rate 18 11/14/18 15:24 Blood Pressure 94/40 L 11/14/18 15:24 O2 Sat by Pulse Oximetry (%) 95 11/14/18 12:00 Intake & Output 11/11/18 11/12/18 11/13/18 11/14/18 23:59 23:59 23:59 23:59 Intake Total 864 407 3736 845 Output Total 400 Balance 163 103 5214 845 Weight 86.183 kg 109.769 kg 55.934 kg NAD CTA soft NT/ND no LE edema, clubbing or cyanosis right foot in dressing CBC, BMP 11/13/18 09:45 11/13/18 09:45 Current Medications Acetaminophen (Tylenol -) 650 mg PO Q6H PRN PRN Reason: PAIN LEVEL 1-5 Last Admin: 11/14/18 16:02 Dose: 650 mg Atorvastatin Calcium (Lipitor -) 40 mg PO HS ALDO Fentanyl (Sublimaze Injection -) 50 mcg IVPUSH [id number] PRN PRN Reason: PAIN-PACU ORDER X 4 DOSES ONLY Lactated Ringer's (Lactated Ringers Solution) 1,000 mls @ 125 mls/hr IV ASDIR ALDO Aztreonam 0.5 gm/ Dextrose 50 mls @ 100 mls/hr IVPB Q12H [facility]; Protocol Last Admin: 11/14/18 15:45 Dose: 100 mls/hr Insulin Aspart (Novolog Vial Sliding Scale -) 1 vial SQ ACHS [facility]; Protocol Metoprolol Succinate (Toprol Xl -) 25 mg PO DAILY [facility] Midodrine (Proamatine -) 5 mg PO TID-MID [facility] Last Admin: 11/14/18 13:13 Dose: 5 mg Ondansetron HCl (Zofran Injection) 4 mg IVPUSH Q6H PRN PRN Reason: NAUSEA AND/OR VOMITING Sertraline HCl (Zoloft -) 25 mg PO DAILY [facility] Sevelamer Carbonate (Renvela -) 2,400 mg PO TIDCM [facility] Last Admin: 11/14/18 13:28 Dose: 2,400 mg 78 year old woman with hx of ESRD on HD (MWF), CAD, PVD, DM type 2, CVA, Afib who presents with non-healing right foot wound. #ESRD on HD (MWF) #LE wound/PVD #CKD related Anemia #Leukocytosis #DM2 #CAD #Renal Osteodystrophy no acute need for SUPERVISOR FUSING ROOM today next treatment planned for tomorrow will check vanco level with HD Podiatry and ID follow up Alon Page DO
[2018-11-14] MEDS ORDERED: VANCOMYCIN 1 GRAM (PRE-DOCKED) 1,000 MG/250 ML BAG IVPB ONE (16:55)
[2018-11-14] MEDS: LACTATED RINGERS SOLUTION 1,000 ML IV SCH (17:00)
--- NOTE | 2018-11-14 17:00 | PN ---
Progress Note (short form) - Note Progress Note: s/p TMA today Vital Signs Period Temp Pulse Resp BP Sys/Prince Pulse Ox Last 24 Hr 98.0 F-98.7 F 67-90 14-20 83-115/40-89 95-100 cor-rrr lungs clear abd soft,nt ext dressing intact RLE CBC, BMP 11/13/18 09:45 11/13/18 09:45 Microbiology 11/11/18 14:10 Blood - Peripheral Venous Blood Culture - Preliminary NO GROWTH OBTAINED AFTER 72 HOURS, INCUBATION TO CONTINUE FOR 2 DAYS. 11/14/18 10:45 Foot - Rt Transmetatarsal Amp. Site Gram Stain - Final 11/14/18 10:45 Bone Gram Stain - Final 11/11/18 10:40 Blood - Peripheral Venous Blood Culture - Preliminary NO GROWTH OBTAINED AFTER 72 HOURS, INCUBATION TO CONTINUE FOR 2 DAYS. 11/11/18 15:00 Ulcer Gram Stain - Final 11/11/18 15:00 Ulcer Wound Culture - Preliminary S Aureus Lactose Fermenting Neg Bacilli vanco trough 137 a/p s/p TMA-f/u operative cultures contact isolation MRSA redose vancomycin today continue azactam for now esrd/hd d/w daughter at bedside Problem List - Problems (1) Non-healing amputation site Code(s): T87.89 - OTHER COMPLICATIONS OF AMPUTATION STUMP (2) ESRD (end stage renal disease) on dialysis Code(s): N18.6 - END STAGE RENAL DISEASE; Z99.2 - DEPENDENCE ON RENAL DIALYSIS (3) Penicillin allergy Code(s): Z88.0 - ALLERGY STATUS TO PENICILLIN
[2018-11-14] MEDS: ATORVASTATIN CA 40 MG TABLET (FP) PO SCH (21:06)
[2018-11-15] MEDS: AZTREONAM 0.5 GM in DEXTROSE 5%-WATER - 50 ML IVPB SCH ×2 (02:44→17:06)
[2018-11-15] MEDS: ACETAMINOPHEN 325 MG TABLET (FP) PO PRN ×2 (05:46→17:05)
[2018-11-15] MEDS: INSULIN SLIDING SCALE (NOVOLOG) 1 VIAL SQ SCH ×4 (06:39→22:28)
[2018-11-15] MEDS: SEVELAMER CARBONATE 800 MG TAB (FP) PO SCH ×4 (08:36→18:09)
--- NOTE | 2018-11-15 09:58 | PN ---
Progress Note (short form) - Note Progress Note: POD#!. Mild pain. vss
--- NOTE | 2018-11-15 10:07 | PN ---
Progress Note, Physician Chief Complaint: POD#1. Mild Pain. - Current Medication List Current Medications: Active Medications Acetaminophen (Tylenol -) 650 mg PO Q6H PRN PRN Reason: PAIN LEVEL 1-5 Last Admin: 11/15/18 05:46 Dose: 650 mg Atorvastatin Calcium (Lipitor -) 40 mg PO HS [facility] Last Admin: 11/14/18 21:06 Dose: 40 mg Epoetin Denis (Procrit -) 10,000 unit IVPUSH ONCE ONE Stop: 11/15/18 08:01 Fentanyl (Sublimaze Injection -) 50 mcg IVPUSH [id number] PRN PRN Reason: PAIN-PACU ORDER X 4 DOSES ONLY Lactated Ringer's (Lactated Ringers Solution) 1,000 mls @ 125 mls/hr IV ASDIR [facility] Last Admin: 11/14/18 17:00 Dose: Not Given Aztreonam 0.5 gm/ Dextrose 50 mls @ 100 mls/hr IVPB Q12H [facility]; Protocol Last Admin: 11/15/18 02:44 Dose: 100 mls/hr Sodium Chloride (Normal Saline -) 250 mls @ 3,000 mls/hr IV PRN PRN PRN Reason: Hypotension during Dialysis Stop: 11/15/18 16:14 Insulin Aspart (Novolog Vial Sliding Scale -) 1 vial SQ ACHS [facility]; Protocol Last Admin: 11/15/18 06:39 Dose: Not Given Metoprolol Succinate (Toprol Xl -) 25 mg PO DAILY [facility] Midodrine (Proamatine -) 5 mg PO TID-MID [facility] Last Admin: 11/14/18 18:29 Dose: 5 mg Ondansetron HCl (Zofran Injection) 4 mg IVPUSH Q6H PRN PRN Reason: NAUSEA AND/OR VOMITING Sertraline HCl (Zoloft -) 25 mg PO DAILY [facility] Sevelamer Carbonate (Renvela -) 2,400 mg PO TIDCM [facility] Last Admin: 11/15/18 08:36 Dose: 2,400 mg Warfarin Sodium (Coumadin -) 10 mg PO DAILY@1800 [facility] - Objective Vital Signs: Vital Signs Temperature 98.7 F 11/15/18 06:20 Pulse Rate 83 11/15/18 09:05 Respiratory Rate 20 11/15/18 09:05 Blood Pressure 94/39 L 11/15/18 09:05 O2 Sat by Pulse Oximetry (%) 95 11/14/18 12:00 Extremities: Yes: Other (+dressing clean dry and intact, -mal odor, -drainage) Labs: CBC, BMP 11/13/18 09:45 11/13/18 09:45 INR, PTT INR 1.48 (0.83-1.09) H 11/14/18 06:10 Assessment/Plan pvd normal post op Dressing intact. Patient may have bathroom privelages with a post op shoe on her right foot. Will change dressing tomorrow. Xray reviewed.
[2018-11-15] MEDS ORDERED: PT OWN MED DRAWER 7, Y5N ONE ×3 (10:13→15:19)
[2018-11-15] MEDS: MIDODRINE HCL 5 MG TABLET PO SCH ×4 (10:17→18:09)
[2018-11-15] MEDS: SERTRALINE HCL 25 MG TABLET (FP) PO SCH (10:23)
[2018-11-15] MEDS: metoPROLOL SUCCINATE 25 MG TAB.SR.24H (FP) PO SCH (10:24)
[2018-11-15] MEDS ORDERED: EPOETIN ALFA 10,000 UNIT/1 ML VIAL IVPUSH ONE (11:30)
[2018-11-15 11:34] LABS: HEMATOCRIT 24.7 % (32.4-45.2); HEMOGLOBIN 8.1 GM/dL (10.7-15.3); MCH 29.7 pg (25.7-33.7); MCHC 32.7 g/dl (32.0-36.0); MEAN CELL VOLUME 90.8 fl (80-96); MEAN PLT VOLUME 9.1 fl (7.5-11.1); PLATELET COUNT 233 K/MM3 (134-434); RBC 2.72 M/mm3 (3.60-5.2); RDW 15.5 % (11.6-15.6); WHITE BLOOD COUNT 10.6 K/mm3 (4.0-10.0)
[2018-11-15 12:04] LABS: INR 1.34 (0.83-1.09); PROTHROMBIN TIME (PATIENT) 15.9 SEC (9.7-13.0)
[2018-11-15 12:06] LABS: BLOOD UREA NITROGEN 63.7 mg/dL (7-18); CALCIUM 8.4 mg/dL (8.5-10.1); PHOSPHOROUS 3.3 mg/dL (2.5-4.9); POTASSIUM 4.5 mmol/L (3.5-5.1)
[2018-11-15 12:15] LABS: CREATININE 8.2 mg/dL (0.55-1.3)
--- NOTE | 2018-11-15 13:46 | PN ---
Progress Note (short form) - Note Progress Note: Renal follow up for ESRD on HD Pt seen and examined during dialysis BP 90/50's, UF goal is 3L AVF with good flow no acute complaints no sob, cp, abd pain no fever or chills Vital Signs Temperature 98.4 F 11/15/18 10:20 Pulse Rate 88 11/15/18 13:14 Respiratory Rate 18 11/15/18 13:14 Blood Pressure 102/51 L 11/15/18 13:14 O2 Sat by Pulse Oximetry (%) 95 11/14/18 12:00 Intake & Output 11/12/18 11/13/18 11/14/18 11/15/18 23:59 23:59 23:59 23:59 Intake Total 730 1600 1315 250 Output Total 400 Balance 330 1600 1315 250 Weight 109.769 kg 55.934 kg NAD CTA soft NT/ND no LE edema, clubbing or cyanosis right foot in dressing CBC, BMP 11/15/18 10:30 11/15/18 10:30 Current Medications Acetaminophen (Tylenol -) 650 mg PO Q6H PRN PRN Reason: PAIN LEVEL 1-5 Last Admin: 11/15/18 05:46 Dose: 650 mg Atorvastatin Calcium (Lipitor -) 40 mg PO HS [facility] Last Admin: 11/14/18 21:06 Dose: 40 mg Fentanyl (Sublimaze Injection -) 50 mcg IVPUSH [id number] PRN PRN Reason: PAIN-PACU ORDER X 4 DOSES ONLY Lactated Ringer's (Lactated Ringers Solution) 1,000 mls @ 125 mls/hr IV ASDIR [facility] Last Admin: 11/14/18 17:00 Dose: Not Given Aztreonam 0.5 gm/ Dextrose 50 mls @ 100 mls/hr IVPB Q12H [facility]; Protocol Last Admin: 11/15/18 02:44 Dose: 100 mls/hr Sodium Chloride (Normal Saline -) 250 mls @ 3,000 mls/hr IV PRN PRN PRN Reason: Hypotension during Dialysis Stop: 11/15/18 16:14 Vancomycin HCl 1,000 mg/ (Dextrose) 250 mls @ 166.667 mls/hr IVPB ONCE ONE; Protocol Stop: 11/15/18 15:11 Insulin Aspart (Novolog Vial Sliding Scale -) 1 vial SQ ACHS [facility]; Protocol Last Admin: 11/15/18 06:39 Dose: Not Given Metoprolol Succinate (Toprol Xl -) 25 mg PO DAILY [facility] Last Admin: 11/15/18 10:24 Dose: Not Given Midodrine (Proamatine -) 5 mg PO TID-MID [facility] Last Admin: 11/15/18 10:17 Dose: 5 mg Ondansetron HCl (Zofran Injection) 4 mg IVPUSH Q6H PRN PRN Reason: NAUSEA AND/OR VOMITING Sertraline HCl (Zoloft -) 25 mg PO DAILY [facility] Last Admin: 11/15/18 10:23 Dose: Not Given Sevelamer Carbonate (Renvela -) 2,400 mg PO TIDCM [facility] Last Admin: 11/15/18 08:36 Dose: 2,400 mg Warfarin Sodium (Coumadin -) 10 mg PO DAILY@1800 [facility] 78 year old woman with hx of ESRD on HD (MWF), CAD, PVD, DM type 2, CVA, Afib who presents with non-healing right foot wound. #ESRD on HD (MWF) #LE wound/PVD #CKD related Anemia #Leukocytosis #DM2 #CAD #Renal Osteodystrophy tolerating dialysis well this am UF as tolerated Vancomycin level is 14, will give Vancomycin 1g IV with HD today Podiatry and ID follow up will give BRAD with HD for anemia, no acute need for PRBC transfusion. Alon Page DO
--- NOTE | 2018-11-15 13:53 | PN ---
Progress Note (short form) - Note Progress Note: pod #1 alert, on HD no complaints Vital Signs Period Temp Pulse Resp BP Sys/Prince Pulse Ox Last 24 Hr 97.7 F-98.7 F 73-93 18-20 80-102/39-72 didnot examine - on HD CBC, BMP 11/15/18 10:30 11/15/18 10:30 Microbiology 11/14/18 10:45 Foot - Rt Transmetatarsal Amp. Site Gram Stain - Final 11/14/18 10:45 Foot - Rt Transmetatarsal Amp. Site Wound Culture - Preliminary Staphylococcus Latex Coag Pos 11/14/18 10:45 Bone Gram Stain - Final 11/14/18 10:45 Bone Tissue Culture - Preliminary Staphylococcus Latex Coag Pos 11/11/18 10:40 Blood - Peripheral Venous Blood Culture - Preliminary NO GROWTH OBTAINED AFTER 96 HOURS, INCUBATION TO CONTINUE FOR 1 DAYS. 11/11/18 14:10 Blood - Peripheral Venous Blood Culture - Preliminary NO GROWTH OBTAINED AFTER 72 HOURS, INCUBATION TO CONTINUE FOR 2 DAYS. 11/11/18 15:00 Ulcer Gram Stain - Final 11/11/18 15:00 Ulcer Wound Culture - Preliminary S Aureus Lactose Fermenting Neg Bacilli vanco trough 14.4 a/p s/p amputation of the toes right foot-f/u operative cultures contact isolation MRSA redose vancomycin today continue azactam for now esrd/hd Problem List - Problems (1) Non-healing amputation site Code(s): T87.89 - OTHER COMPLICATIONS OF AMPUTATION STUMP (2) ESRD (end stage renal disease) on dialysis Code(s): N18.6 - END STAGE RENAL DISEASE; Z99.2 - DEPENDENCE ON RENAL DIALYSIS (3) Penicillin allergy Code(s): Z88.0 - ALLERGY STATUS TO PENICILLIN
[2018-11-15] MEDS ORDERED: VANCOMYCIN 1 GRAM (PRE-DOCKED) 1,000 MG/250 ML BAG IVPB ONE (14:30)
--- NOTE | 2018-11-15 14:37 | PN ---
Progress Note, Physician Chief Complaint: EVENTS AND NOTES REVIEWED AWAKE ALERT REFUSING LABS - Current Medication List Current Medications: Active Medications Acetaminophen (Tylenol -) 650 mg PO Q6H PRN PRN Reason: PAIN LEVEL 1-5 Last Admin: 11/15/18 05:46 Dose: 650 mg Atorvastatin Calcium (Lipitor -) 40 mg PO HS [facility] Last Admin: 11/14/18 21:06 Dose: 40 mg Fentanyl (Sublimaze Injection -) 50 mcg IVPUSH [id number] PRN PRN Reason: PAIN-PACU ORDER X 4 DOSES ONLY Lactated Ringer's (Lactated Ringers Solution) 1,000 mls @ 125 mls/hr IV ASDIR [facility] Last Admin: 11/14/18 17:00 Dose: Not Given Aztreonam 0.5 gm/ Dextrose 50 mls @ 100 mls/hr IVPB Q12H [facility]; Protocol Last Admin: 11/15/18 02:44 Dose: 100 mls/hr Sodium Chloride (Normal Saline -) 250 mls @ 3,000 mls/hr IV PRN PRN PRN Reason: Hypotension during Dialysis Stop: 11/15/18 16:14 Vancomycin HCl (Vancomycin (Pre-Docked)) 1,000 mg in 250 mls @ 166.667 mls/hr IVPB ONCE ONE; Protocol Stop: 11/15/18 15:59 Insulin Aspart (Novolog Vial Sliding Scale -) 1 vial SQ ACHS [facility]; Protocol Last Admin: 11/15/18 06:39 Dose: Not Given Metoprolol Succinate (Toprol Xl -) 25 mg PO DAILY [facility] Last Admin: 11/15/18 10:24 Dose: Not Given Midodrine (Proamatine -) 5 mg PO TID-MID [facility] Last Admin: 11/15/18 10:17 Dose: 5 mg Ondansetron HCl (Zofran Injection) 4 mg IVPUSH Q6H PRN PRN Reason: NAUSEA AND/OR VOMITING Sertraline HCl (Zoloft -) 25 mg PO DAILY [facility] Last Admin: 11/15/18 10:23 Dose: Not Given Sevelamer Carbonate (Renvela -) 2,400 mg PO TIDCM [facility] Last Admin: 11/15/18 08:36 Dose: 2,400 mg Warfarin Sodium (Coumadin -) 10 mg PO DAILY@1800 [facility] - Objective Vital Signs: Vital Signs Temperature 98.4 F 06/14/19 10:20 Pulse Rate 88 11/15/18 13:14 Respiratory Rate 18 11/15/18 13:14 Blood Pressure 102/51 L 11/15/18 13:14 O2 Sat by Pulse Oximetry (%) 95 11/14/18 12:00 Constitutional: Yes: No Distress Eyes: Yes: WNL HENT: Yes: WNL Neck: Yes: WNL Cardiovascular: Yes: Pulse Irregular Respiratory: Yes: WNL Gastrointestinal: Yes: WNL Musculoskeletal: Yes: Muscle Weakness Extremities: Yes: Deformity Integumentary: Yes: Pressure Ulcer Wound/Incision: Yes: Dressing Dry and Intact (LEFT LOWER EXTREMITY) Neurological: Yes: Pre-Existing Deficit ...Motor Strength: LLE Psychiatric: Yes: WNL Labs: CBC, BMP 11/15/18 10:30 11/15/18 10:30 INR, PTT INR 1.34 (0.83-1.09) H 11/15/18 11:30 Problem List - Problems (1) ESRD (end stage renal disease) on dialysis Code(s): N18.6 - END STAGE RENAL DISEASE; Z99.2 - DEPENDENCE ON RENAL DIALYSIS (2) Gangrene Code(s): I96 - GANGRENE, NOT ELSEWHERE CLASSIFIED (3) HLD (hyperlipidemia) Code(s): E78.5 - HYPERLIPIDEMIA, UNSPECIFIED (4) Non-healing amputation site Code(s): T87.89 - OTHER COMPLICATIONS OF AMPUTATION STUMP (5) Type 2 diabetes mellitus with diabetic peripheral angiopathy without gangrene Code(s): E11.51 - TYPE 2 DIABETES W DIABETIC PERIPHERAL ANGIOPATH W/O GANGRENE Qualifiers: Diabetes mellitus long term care administrator insulin use: with group home use Qualified Code( s): E11.51 - Type 2 diabetes mellitus with diabetic peripheral angiopathy without gangrene; Z79.4 - long term care pharmacist (current) use of insulin (6) Wound of foot Code(s): S91.309A - UNSPECIFIED OPEN WOUND, UNSPECIFIED FOOT, INITIAL ENCOUNTER (7) ASHD (arteriosclerotic heart disease) Code(s): I25.10 - ATHSCL HEART DISEASE OF [place] CORONARY ARTERY W/O ANG PCTRS (8) Anemia Code(s): D64.9 - ANEMIA, UNSPECIFIED Qualifiers: Anemia type: other cause Other causes of anemia: chronic disease, kidney (9) Atrial fibrillation Code(s): I48.91 - UNSPECIFIED ATRIAL FIBRILLATION Qualifiers: Atrial fibrillation type: chronic Qualified Code(s): I48.2 - Chronic atrial fibrillation (10) Obesity Code(s): E66.9 - OBESITY, UNSPECIFIED Assessment/Plan ABX PER ID PODIATRY F/U WOUND CARE LEFT FOOT AND DRESSING CHANGES ESRD ON HD PER RENAL NUTRITION INCREASED VITAMINS FOR WOUND CARE ADDING VITAMINC,ZINC,MVI. PT EVAL PLACEMENT SNF
[2018-11-15] MEDS: LACTATED RINGERS SOLUTION 1,000 ML IV SCH (17:33)
[2018-11-15] MEDS: WARFARIN NA 10 MG TABLET (FP) PO SCH (18:09)
[2018-11-15] MEDS: ATORVASTATIN CA 40 MG TABLET (FP) PO SCH (22:28)
[2018-11-16] MEDS: AZTREONAM 0.5 GM in DEXTROSE 5%-WATER - 50 ML IVPB SCH ×2 (02:51→16:36)
[2018-11-16] MEDS: ACETAMINOPHEN 325 MG TABLET (FP) PO PRN ×2 (03:46→10:06)
[2018-11-16] MEDS: INSULIN SLIDING SCALE (NOVOLOG) 1 VIAL SQ SCH ×4 (06:53→21:35)
[2018-11-16] MEDS: SEVELAMER CARBONATE 800 MG TAB (FP) PO SCH ×3 (08:35→17:46)
[2018-11-16] MEDS ORDERED: PT OWN MED DRAWER 7, Y5N ONE ×3 (09:51→19:05)
[2018-11-16] MEDS: MIDODRINE HCL 5 MG TABLET PO SCH ×3 (10:01→19:08)
[2018-11-16] MEDS: SERTRALINE HCL 25 MG TABLET (FP) PO SCH (10:01)
[2018-11-16] MEDS: metoPROLOL SUCCINATE 25 MG TAB.SR.24H (FP) PO SCH (10:02)
--- NOTE | 2018-11-16 10:55 | PN ---
Progress Note, Physician Chief Complaint: PATIENT REFUSED LAB DRAW BECAUSE SHE SAYS "I AM SICK AND TIRED OF BEING STUCK BY A NEEDLE" I WAS ABLE TO CONVINCE HER TO HAVE AN INR CHECK. - Current Medication List Current Medications: Active Medications Acetaminophen (Tylenol -) 650 mg PO Q6H PRN PRN Reason: PAIN LEVEL 1-5 Last Admin: 11/16/18 10:06 Dose: 650 mg Atorvastatin Calcium (Lipitor -) 40 mg PO HS [facility] Last Admin: 11/15/18 22:28 Dose: 40 mg Fentanyl (Sublimaze Injection -) 50 mcg IVPUSH [id number] PRN PRN Reason: PAIN-PACU ORDER X 4 DOSES ONLY Lactated Ringer's (Lactated Ringers Solution) 1,000 mls @ 125 mls/hr IV ASDIR [facility] Last Admin: 11/15/18 17:33 Dose: Not Given Aztreonam 0.5 gm/ Dextrose 50 mls @ 100 mls/hr IVPB Q12H [facility]; Protocol Last Admin: 11/16/18 02:51 Dose: 100 mls/hr Insulin Aspart (Novolog Vial Sliding Scale -) 1 vial SQ ACHS [facility]; Protocol Last Admin: 11/16/18 06:53 Dose: 2 units Metoprolol Succinate (Toprol Xl -) 25 mg PO DAILY [facility] Last Admin: 11/16/18 10:02 Dose: Not Given Midodrine (Proamatine -) 5 mg PO TID-MID [facility] Last Admin: 11/16/18 10:01 Dose: 5 mg Ondansetron HCl (Zofran Injection) 4 mg IVPUSH Q6H PRN PRN Reason: NAUSEA AND/OR VOMITING Sertraline HCl (Zoloft -) 25 mg PO DAILY [facility] Last Admin: 11/16/18 10:01 Dose: 25 mg Sevelamer Carbonate (Renvela -) 2,400 mg PO TIDCM [facility] Last Admin: 11/16/18 08:35 Dose: 2,400 mg Warfarin Sodium (Coumadin -) 10 mg PO DAILY@1800 [facility] Last Admin: 11/15/18 18:09 Dose: 10 mg - Objective Vital Signs: Vital Signs Temperature 97.9 F 11/16/18 10:00 Pulse Rate 93 H 11/16/18 10:00 Respiratory Rate 24 H 11/16/18 10:00 Blood Pressure 84/47 L 11/16/18 10:00 O2 Sat by Pulse Oximetry (%) 100 11/15/18 21:00 Constitutional: Yes: No Distress Eyes: Yes: WNL HENT: Yes: WNL Neck: Yes: WNL Cardiovascular: Yes: Pulse Irregular Respiratory: Yes: WNL Gastrointestinal: Yes: WNL Genitourinary: Yes: Other Musculoskeletal: Yes: Muscle Weakness Extremities: Yes: Deformity Edema: No Peripheral Pulses WNL: Yes Integumentary: Yes: Pressure Ulcer Wound/Incision: Yes: Dressing Dry and Intact Neurological: Yes: Pre-Existing Deficit ...Motor Strength: LLE Psychiatric: Yes: WNL Labs: CBC, BMP 11/15/18 10:30 11/15/18 10:30 INR, PTT INR 1.34 (0.83-1.09) H 11/15/18 11:30 Problem List - Problems (1) ESRD (end stage renal disease) on dialysis Code(s): N18.6 - END STAGE RENAL DISEASE; Z99.2 - DEPENDENCE ON RENAL DIALYSIS (2) Gangrene Code(s): I96 - GANGRENE, NOT ELSEWHERE CLASSIFIED (3) HLD (hyperlipidemia) Code(s): E78.5 - HYPERLIPIDEMIA, UNSPECIFIED (4) Non-healing amputation site Code(s): T87.89 - OTHER COMPLICATIONS OF AMPUTATION STUMP (5) Type 2 diabetes mellitus with diabetic peripheral angiopathy without gangrene Code(s): E11.51 - TYPE 2 DIABETES W DIABETIC PERIPHERAL ANGIOPATH W/O GANGRENE Qualifiers: Diabetes mellitus assisted insulin use: with assisted use Qualified Code( s): E11.51 - Type 2 diabetes mellitus with diabetic peripheral angiopathy without gangrene; Z79.4 - shelter (current) use of insulin (6) Wound of foot Code(s): S91.309A - UNSPECIFIED OPEN WOUND, UNSPECIFIED FOOT, INITIAL ENCOUNTER (7) ASHD (arteriosclerotic heart disease) Code(s): I25.10 - ATHSCL HEART DISEASE OF [place] CORONARY ARTERY W/O ANG PCTRS (8) Anemia Code(s): D64.9 - ANEMIA, UNSPECIFIED Qualifiers: Anemia type: other cause Other causes of anemia: chronic disease, kidney (9) Atrial fibrillation Code(s): I48.91 - UNSPECIFIED ATRIAL FIBRILLATION Qualifiers: Atrial fibrillation type: chronic Qualified Code(s): I48.2 - Chronic atrial fibrillation (10) COPD (chronic obstructive pulmonary disease) Code(s): J44.9 - CHRONIC OBSTRUCTIVE PULMONARY DISEASE, UNSPECIFIED Qualifiers: COPD type: unspecified COPD Qualified Code(s): J44.9 - Chronic obstructive pulmonary disease, unspecified (11) ESRD (end stage renal disease) Code(s): N18.6 - END STAGE RENAL DISEASE (12) Fever Code(s): R50.9 - FEVER, UNSPECIFIED Qualifiers: Fever type: unspecified Qualified Code(s): R50.9 - Fever, unspecified (13) Type 2 diabetes mellitus with diabetic chronic kidney disease Code(s): E11.22 - TYPE 2 DIABETES MELLITUS W DIABETIC CHRONIC KIDNEY DISEASE Assessment/Plan INR SUB THERAPEUTIC 1.37 CAN NOT GIVE LOVENOX DUE TO RENAL DISEASE AND PATIENT REFUSING IV HEPLOCK HEPARIN DRIP MS. TRAN UNDERSTANDS THE RISK OF HER INR BEING SUB-THERAPEUTIC AND POSSIBLE STROKE AND . SHE STATES SHE HAS BEEN ON COUMADIN FOR A LONG TIME AND THAT SHE IS ABLE TO MONITOR IT BETTER AT HOME WITH HER OWN INR MACHINE AND THE ABX AND MEDS HERE AT THE HOSPITAL HAVE AFFECTED HER INR LEVEL BECAUSE THE MEDICATIONS ARE BLOCKING HER COUMADIN LEVEL. WILL CHECK LEVELS IN A.M. ABX PER ID PODIATRY F/U WOUND CARE LEFT FOOT AND DRESSING CHANGES ESRD ON HD PER RENAL NUTRITION INCREASED VITAMINS FOR WOUND CARE ADDING VITAMINC,ZINC,MVI. PT EVAL PLACEMENT SNF
[2018-11-16] MEDS ORDERED: INSULIN (NOVOLOG) ASPART 100 UNITS/ML 10ML VIAL ONE (11:44)
[2018-11-16 12:24] LABS: INR 1.37 (0.83-1.09); PROTHROMBIN TIME (PATIENT) 16.2 SEC (9.7-13.0)
[2018-11-16] MEDS: LACTATED RINGERS SOLUTION 1,000 ML IV SCH (14:30)
--- NOTE | 2018-11-16 15:49 | PN ---
Progress Note (short form) - Note Progress Note: pod#2. no pain. vss +dressing intact, +retention sutures and packing in place, -cellulitis, - drainage, -necrosis normal post op dressing removed. packing pulled. betadine dressing re-applied. may go to bathroom with wedge shoe on. betadine dressing change daily. cbc today. may resume hbo upon dc. follow up in [facility].
--- NOTE | 2018-11-16 17:00 | PN ---
Progress Note (short form) - Note Progress Note: esrd non-healing foot wound Current Medications Acetaminophen (Tylenol -) 650 mg PO Q6H PRN PRN Reason: PAIN LEVEL 1-5 Last Admin: 11/16/18 10:06 Dose: 650 mg Atorvastatin Calcium (Lipitor -) 40 mg PO HS [facility] Last Admin: 11/15/18 22:28 Dose: 40 mg Fentanyl (Sublimaze Injection -) 50 mcg IVPUSH [id number] PRN PRN Reason: PAIN-PACU ORDER X 4 DOSES ONLY Lactated Ringer's (Lactated Ringers Solution) 1,000 mls @ 125 mls/hr IV ASDIR [facility] Last Admin: 11/16/18 14:30 Dose: Not Given Aztreonam 0.5 gm/ Dextrose 50 mls @ 100 mls/hr IVPB Q12H [facility]; Protocol Last Admin: 11/16/18 16:36 Dose: 100 mls/hr Insulin Aspart (Novolog Vial Sliding Scale -) 1 vial SQ ACHS [facility]; Protocol Last Admin: 11/16/18 11:45 Dose: 4 units Metoprolol Succinate (Toprol Xl -) 25 mg PO DAILY [facility] Last Admin: 11/16/18 10:02 Dose: Not Given Midodrine (Proamatine -) 5 mg PO TID-MID [facility] Last Admin: 11/16/18 14:31 Dose: 5 mg Ondansetron HCl (Zofran Injection) 4 mg IVPUSH Q6H PRN PRN Reason: NAUSEA AND/OR VOMITING Sertraline HCl (Zoloft -) 25 mg PO DAILY [facility] Last Admin: 11/16/18 10:01 Dose: 25 mg Sevelamer Carbonate (Renvela -) 2,400 mg PO TIDCM [facility] Last Admin: 11/16/18 12:21 Dose: 2,400 mg Warfarin Sodium (Coumadin -) 10 mg PO DAILY@1800 [facility] Last Admin: 11/15/18 18:09 Dose: 10 mg Last Vital Signs Temp Pulse Resp BP Pulse Ox 98.3 F 84 18 101/34 L 100 11/16/18 14:56 11/16/18 14:56 11/16/18 14:56 11/16/18 14:56 11/15/18 21:00 Lungs clear Heart reg Abd soft nontender Ext no edema CBC, BMP 11/15/18 10:30 11/15/18 10:30 IMP ESRD ON HD PLAN- hd IN AM
[2018-11-16] MEDS: WARFARIN NA 10 MG TABLET (FP) PO SCH (17:46)
[2018-11-16] MEDS: ATORVASTATIN CA 40 MG TABLET (FP) PO SCH (21:35)
[2018-11-17] MEDS ORDERED: PT OWN MED DRAWER 7, Y5N ONE ×4 (01:14→17:31)
[2018-11-17] MEDS: AZTREONAM 0.5 GM in DEXTROSE 5%-WATER - 50 ML IVPB SCH ×2 (02:43→16:16)
[2018-11-17] MEDS: INSULIN SLIDING SCALE (NOVOLOG) 1 VIAL SQ SCH ×4 (06:36→22:42)
[2018-11-17] MEDS: ACETAMINOPHEN 325 MG TABLET (FP) PO PRN ×2 (06:40→12:40)
[2018-11-17] MEDS: SEVELAMER CARBONATE 800 MG TAB (FP) PO SCH ×3 (09:06→17:45)
[2018-11-17] MEDS: SERTRALINE HCL 25 MG TABLET (FP) PO SCH (09:17)
[2018-11-17] MEDS: MIDODRINE HCL 5 MG TABLET PO SCH ×3 (09:17→17:44)
[2018-11-17] MEDS: metoPROLOL SUCCINATE 25 MG TAB.SR.24H (FP) PO SCH (10:00)
[2018-11-17] MEDS ORDERED: VANCOMYCIN 1 GRAM (PRE-DOCKED) 1,000 MG/250 ML BAG IVPB ONE (10:08)
--- NOTE | 2018-11-17 10:12 | PN ---
Progress Note (short form) - Note Progress Note: pod #3 alert no complaints dressing changed by podiatry, drain removed Vital Signs Period Temp Pulse Resp BP Sys/Prince Pulse Ox Last 24 Hr 98.1 F-98.4 F 78-86 18-20 95-126/34-59 100 cor-rrr lungs clear abd soft,nt dressing right foot CBC, BMP 11/15/18 10:30 11/15/18 10:30 Microbiology 11/11/18 15:00 Ulcer Gram Stain - Final 11/11/18 15:00 Ulcer Wound Culture - Preliminary S Aureus Lactose Fermenting Neg Bacilli 11/11/18 14:10 Blood - Peripheral Venous Blood Culture - Final NO GROWTH AFTER 5 DAYS INCUBATION 11/14/18 10:45 Bone Gram Stain - Final 11/14/18 10:45 Bone Tissue Culture - Preliminary Mr S Aureus 11/14/18 10:45 Bone Anaerobic Culture - Final NO ANAEROBES WERE ISOLATED 11/14/18 10:45 Foot - Rt Transmetatarsal Amp. Site Gram Stain - Final 11/14/18 10:45 Foot - Rt Transmetatarsal Amp. Site Wound Culture - Preliminary Presumptive Mrsa (Pbp2a Pos) Gram Negative Bebo 11/11/18 10:40 Blood - Peripheral Venous Blood Culture - Final NO GROWTH AFTER 5 DAYS INCUBATION vanco trough 14.4 a/p s/p amputation of the toes right foot-f/u operative cultures, f/u pathology, suspect she will require tongterm vancomycin with HD contact isolation MRSA, redose vancomycin today continue azactam for now esrd/hd check vancomycin trough esr/crp with HD in am Problem List - Problems (1) Non-healing amputation site Code(s): T87.89 - OTHER COMPLICATIONS OF AMPUTATION STUMP (2) ESRD (end stage renal disease) on dialysis Code(s): N18.6 - END STAGE RENAL DISEASE; Z99.2 - DEPENDENCE ON RENAL DIALYSIS (3) Penicillin allergy Code(s): Z88.0 - ALLERGY STATUS TO PENICILLIN
--- NOTE | 2018-11-17 10:40 | PN ---
Progress Note, Physician Chief Complaint: POD#3. No Pain. - Current Medication List Current Medications: Active Medications Acetaminophen (Tylenol -) 650 mg PO Q6H PRN PRN Reason: PAIN LEVEL 1-5 Last Admin: 11/17/18 06:40 Dose: 650 mg Atorvastatin Calcium (Lipitor -) 40 mg PO HS [facility] Last Admin: 11/16/18 21:35 Dose: 40 mg Fentanyl (Sublimaze Injection -) 50 mcg IVPUSH [id number] PRN PRN Reason: PAIN-PACU ORDER X 4 DOSES ONLY Lactated Ringer's (Lactated Ringers Solution) 1,000 mls @ 125 mls/hr IV ASDIR [facility] Last Admin: 11/16/18 14:30 Dose: Not Given Aztreonam 0.5 gm/ Dextrose 50 mls @ 100 mls/hr IVPB Q12H [facility]; Protocol Last Admin: 11/17/18 02:43 Dose: 100 mls/hr Vancomycin HCl (Vancomycin (Pre-Docked)) 1,000 mg in 250 mls @ 166.667 mls/hr IVPB ONCE ONE; Protocol Stop: 11/17/18 11:37 Insulin Aspart (Novolog Vial Sliding Scale -) 1 vial SQ ACHS [facility]; Protocol Last Admin: 11/17/18 06:36 Dose: Not Given Metoprolol Succinate (Toprol Xl -) 25 mg PO DAILY [facility] Last Admin: 11/16/18 10:02 Dose: Not Given Midodrine (Proamatine -) 5 mg PO TID-MID [facility] Last Admin: 11/17/18 09:17 Dose: 5 mg Ondansetron HCl (Zofran Injection) 4 mg IVPUSH Q6H PRN PRN Reason: NAUSEA AND/OR VOMITING Sertraline HCl (Zoloft -) 25 mg PO DAILY [facility] Last Admin: 11/17/18 09:17 Dose: 25 mg Sevelamer Carbonate (Renvela -) 2,400 mg PO TIDCM [facility] Last Admin: 11/17/18 09:06 Dose: 2,400 mg Warfarin Sodium (Coumadin -) 10 mg PO DAILY@1800 [facility] Last Admin: 11/16/18 17:46 Dose: 10 mg - Objective Vital Signs: Vital Signs Temperature 98.2 F 11/17/18 06:00 Pulse Rate 84 11/17/18 06:00 Respiratory Rate 20 11/17/18 06:00 Blood Pressure 105/59 L 11/17/18 06:00 O2 Sat by Pulse Oximetry (%) 100 11/16/18 21:00 Extremities: Yes: Other (+granulating wound, retention sutures in place, - drainage, -mal odor,) Labs: CBC, BMP 11/15/18 10:30 11/15/18 10:30 INR, PTT INR 1.37 (0.83-1.09) H 11/16/18 11:45 Assessment/Plan normal post op Dressing intact. Dressing change done. IVABX as per ID. Waiting for cbc with diff if normal can be dc from Podiatry standpoint. Needs VNS at home with Regranex dressing changes to incision line. Will follow till dc. Upon DC will follow in [facility]. Rx for Regranex sent to [place].
[2018-11-17] MEDS: LACTATED RINGERS SOLUTION 1,000 ML IV SCH (13:36)
--- NOTE | 2018-11-17 14:22 | PN ---
Progress Note, Physician Chief Complaint: REFUSED LAB CHECKS AGAIN TODAY SHE TOLD ME TO ORDER THEM DURING HD SO NOBODY HAS TO STICK HER WITH A NEEDLE. ALERT AND ORIENTED X 3 COMPETENT IN DECISION MAKING - Current Medication List Current Medications: Active Medications Acetaminophen (Tylenol -) 650 mg PO Q6H PRN PRN Reason: PAIN LEVEL 1-5 Last Admin: 11/17/18 12:40 Dose: 650 mg Atorvastatin Calcium (Lipitor -) 40 mg PO HS [facility] Last Admin: 11/16/18 21:35 Dose: 40 mg Fentanyl (Sublimaze Injection -) 50 mcg IVPUSH [id number] PRN PRN Reason: PAIN-PACU ORDER X 4 DOSES ONLY Lactated Ringer's (Lactated Ringers Solution) 1,000 mls @ 125 mls/hr IV ASDIR [facility] Last Admin: 11/17/18 13:36 Dose: Not Given Aztreonam 0.5 gm/ Dextrose 50 mls @ 100 mls/hr IVPB Q12H [facility]; Protocol Last Admin: 11/17/18 02:43 Dose: 100 mls/hr Insulin Aspart (Novolog Vial Sliding Scale -) 1 vial SQ ACHS [facility]; Protocol Last Admin: 11/17/18 12:37 Dose: 2 units Metoprolol Succinate (Toprol Xl -) 25 mg PO DAILY [facility] Last Admin: 11/17/18 10:00 Dose: Not Given Midodrine (Proamatine -) 5 mg PO TID-MID [facility] Last Admin: 11/17/18 09:17 Dose: 5 mg Ondansetron HCl (Zofran Injection) 4 mg IVPUSH Q6H PRN PRN Reason: NAUSEA AND/OR VOMITING Sertraline HCl (Zoloft -) 25 mg PO DAILY [facility] Last Admin: 11/17/18 09:17 Dose: 25 mg Sevelamer Carbonate (Renvela -) 2,400 mg PO TIDCM [facility] Last Admin: 11/17/18 12:47 Dose: 2,400 mg Warfarin Sodium (Coumadin -) 10 mg PO DAILY@1800 [facility] Last Admin: 11/16/18 17:46 Dose: 10 mg - Objective Vital Signs: Vital Signs Temperature 98.3 F 11/17/18 12:56 Pulse Rate 80 11/17/18 12:56 Respiratory Rate 20 11/17/18 12:56 Blood Pressure 111/64 11/17/18 12:56 O2 Sat by Pulse Oximetry (%) 100 11/16/18 21:00 Constitutional: Yes: No Distress Eyes: Yes: WNL HENT: Yes: WNL Neck: Yes: WNL Cardiovascular: Yes: Pulse Irregular Respiratory: Yes: WNL Gastrointestinal: Yes: Abdomen, Obese Genitourinary: Yes: Other Musculoskeletal: Yes: Muscle Weakness Extremities: Yes: Deformity Edema: Yes Peripheral Pulses WNL: Yes Integumentary: Yes: Pressure Ulcer Wound/Incision: Yes: Dressing Dry and Intact Neurological: Yes: Pre-Existing Deficit ...Motor Strength: LLE Psychiatric: Yes: WNL Labs: CBC, BMP 11/15/18 10:30 11/15/18 10:30 INR, PTT INR 1.37 (0.83-1.09) H 11/16/18 11:45 Problem List - Problems (1) ESRD (end stage renal disease) on dialysis Code(s): N18.6 - END STAGE RENAL DISEASE; Z99.2 - DEPENDENCE ON RENAL DIALYSIS (2) Gangrene Code(s): I96 - GANGRENE, NOT ELSEWHERE CLASSIFIED (3) HLD (hyperlipidemia) Code(s): E78.5 - HYPERLIPIDEMIA, UNSPECIFIED (4) Non-healing amputation site Code(s): T87.89 - OTHER COMPLICATIONS OF AMPUTATION STUMP (5) Type 2 diabetes mellitus with diabetic peripheral angiopathy without gangrene Code(s): E11.51 - TYPE 2 DIABETES W DIABETIC PERIPHERAL ANGIOPATH W/O GANGRENE Qualifiers: Diabetes mellitus residential insulin use: with sludge mill operator use Qualified Code( s): E11.51 - Type 2 diabetes mellitus with diabetic peripheral angiopathy without gangrene; Z79.4 - web administrator (current) use of insulin (6) Wound of foot Code(s): S91.309A - UNSPECIFIED OPEN WOUND, UNSPECIFIED FOOT, INITIAL ENCOUNTER (7) ASHD (arteriosclerotic heart disease) Code(s): I25.10 - ATHSCL HEART DISEASE OF [place] CORONARY ARTERY W/O ANG PCTRS (8) Anemia Code(s): D64.9 - ANEMIA, UNSPECIFIED Qualifiers: Anemia type: other cause Other causes of anemia: chronic disease, kidney (9) Atrial fibrillation Code(s): I48.91 - UNSPECIFIED ATRIAL FIBRILLATION Qualifiers: Atrial fibrillation type: chronic Qualified Code(s): I48.2 - Chronic atrial fibrillation (10) Diabetes mellitus, insulin dependent (IDDM), uncontrolled Code(s): E10.65 - TYPE 1 DIABETES MELLITUS WITH HYPERGLYCEMIA (11) ESRD (end stage renal disease) Code(s): N18.6 - END STAGE RENAL DISEASE Assessment/Plan NUTRITION CONSULT TO EDUCATE MS ADAMS ON DM/HTN/CAD/ESRD DIET AWAITING LABS DURING HD TOMORROW INR SUB THERAPEUTIC 1.37 CAN NOT GIVE LOVENOX DUE TO RENAL DISEASE AND PATIENT REFUSING IV HEPLOCK HEPARIN DRIP MS. TRAN UNDERSTANDS THE RISK OF HER INR BEING SUB-THERAPEUTIC AND POSSIBLE STROKE AND . SHE STATES SHE HAS BEEN ON COUMADIN FOR A LONG TIME AND THAT SHE IS ABLE TO MONITOR IT BETTER AT HOME WITH HER OWN INR MACHINE AND THE ABX AND MEDS HERE AT THE HOSPITAL HAVE AFFECTED HER INR LEVEL BECAUSE THE MEDICATIONS ARE BLOCKING HER COUMADIN LEVEL. WILL CHECK LEVELS IN A.M. ABX PER ID PODIATRY F/U WOUND CARE LEFT FOOT AND DRESSING CHANGES ESRD ON HD PER RENAL NUTRITION INCREASED VITAMINS FOR WOUND CARE ADDING VITAMINC,ZINC,MVI. PT EVAL PLACEMENT SNF
[2018-11-17] MEDS: WARFARIN NA 10 MG TABLET (FP) PO SCH (17:43)
[2018-11-17] MEDS: ATORVASTATIN CA 40 MG TABLET (FP) PO SCH (22:42)
[2018-11-18] MEDS: AZTREONAM 0.5 GM in DEXTROSE 5%-WATER - 50 ML IVPB SCH (04:15)
[2018-11-18] MEDS: INSULIN SLIDING SCALE (NOVOLOG) 1 VIAL SQ SCH ×4 (07:09→21:44)
[2018-11-18] MEDS: ACETAMINOPHEN 325 MG TABLET (FP) PO PRN ×2 (07:23→14:22)
[2018-11-18] MEDS ORDERED: PT OWN MED DRAWER 7, Y5N ONE ×4 (08:04→21:14)
[2018-11-18] MEDS: SEVELAMER CARBONATE 800 MG TAB (FP) PO SCH ×3 (08:21→18:16)
[2018-11-18] MEDS: MIDODRINE HCL 5 MG TABLET PO SCH ×3 (09:36→18:15)
[2018-11-18 10:18] LABS: HEMATOCRIT 24.5 % (32.4-45.2); HEMOGLOBIN 7.9 GM/dL (10.7-15.3); MCH 29.6 pg (25.7-33.7); MCHC 32.1 g/dl (32.0-36.0); MEAN CELL VOLUME 92.1 fl (80-96); MEAN PLT VOLUME 8.8 fl (7.5-11.1); RBC 2.66 M/mm3 (3.60-5.2); RDW 15.4 % (11.6-15.6); WHITE BLOOD COUNT 8.1 K/mm3 (4.0-10.0)
[2018-11-18 10:21] LABS: PLATELET COUNT 260 K/MM3 (134-434)
[2018-11-18 10:25] LABS: INR 1.71 (0.83-1.09); PROTHROMBIN TIME (PATIENT) 20.3 SEC (9.7-13.0)
[2018-11-18 10:43] LABS: ALBUMIN 2.4 g/dl (3.4-5.0); BILIRUBIN,TOTAL 0.2 mg/dL (0.2-1); BLOOD UREA NITROGEN 75.2 mg/dL (7-18); CALCIUM 8.5 mg/dL (8.5-10.1); POTASSIUM 4.8 mmol/L (3.5-5.1)
[2018-11-18 10:47] LABS: CREATININE 9.1 mg/dL (0.55-1.3)
--- NOTE | 2018-11-18 10:47 | PN ---
Progress Note, Physician Chief Complaint: Gangrene R foot ESRD DM History of Present Illness: Previous notes and events reviewed awake and alert NAD POD #4 for resection R foot metatarsal no complaints of pain patient is refusing SNF for discharge afebrile - Current Medication List Current Medications: Active Medications Acetaminophen (Tylenol -) 650 mg PO Q6H PRN PRN Reason: PAIN LEVEL 1-5 Last Admin: 11/18/18 07:23 Dose: 650 mg Atorvastatin Calcium (Lipitor -) 40 mg PO HS [facility] Last Admin: 11/17/18 22:42 Dose: 40 mg Fentanyl (Sublimaze Injection -) 50 mcg IVPUSH [id number] PRN PRN Reason: PAIN-PACU ORDER X 4 DOSES ONLY Lactated Ringer's (Lactated Ringers Solution) 1,000 mls @ 125 mls/hr IV ASDIR [facility] Last Admin: 11/17/18 13:36 Dose: Not Given Aztreonam 0.5 gm/ Dextrose 50 mls @ 100 mls/hr IVPB Q12H [facility]; Protocol Last Admin: 11/18/18 04:15 Dose: 100 mls/hr Sodium Chloride (Normal Saline -) 250 mls @ 3,000 mls/hr IV PRN PRN PRN Reason: Hypotension during Dialysis Stop: 11/18/18 23:05 Insulin Aspart (Novolog Vial Sliding Scale -) 1 vial SQ ACHS [facility]; Protocol Last Admin: 11/18/18 07:09 Dose: Not Given Metoprolol Succinate (Toprol Xl -) 25 mg PO DAILY [facility] Last Admin: 11/17/18 10:00 Dose: Not Given Midodrine (Proamatine -) 5 mg PO TID-MID [facility] Last Admin: 11/18/18 09:36 Dose: 5 mg Ondansetron HCl (Zofran Injection) 4 mg IVPUSH Q6H PRN PRN Reason: NAUSEA AND/OR VOMITING Sertraline HCl (Zoloft -) 25 mg PO DAILY [facility] Last Admin: 11/17/18 09:17 Dose: 25 mg Sevelamer Carbonate (Renvela -) 2,400 mg PO TIDCM [facility] Last Admin: 11/18/18 08:21 Dose: Not Given Warfarin Sodium (Coumadin -) 10 mg PO DAILY@1800 [facility] Last Admin: 11/17/18 17:43 Dose: 10 mg - Objective Vital Signs: Vital Signs Temperature 97.8 F 11/18/18 09:35 Pulse Rate 80 11/18/18 09:40 Respiratory Rate 18 11/18/18 09:40 Blood Pressure 116/72 11/18/18 09:40 O2 Sat by Pulse Oximetry (%) 99 11/17/18 21:00 Constitutional: Yes: No Distress, Calm Eyes: Yes: Conjunctiva Clear HENT: Yes: Atraumatic Cardiovascular: Yes: Regular Rate and Rhythm Respiratory: Yes: Regular, CTA Bilaterally Gastrointestinal: Yes: Normal Bowel Sounds, Soft Musculoskeletal: Yes: Muscle Weakness Extremities: Yes: WNL Edema: No Wound/Incision: Yes: Dressing Dry and Intact Neurological: Yes: Alert, Oriented Psychiatric: Yes: Alert, Oriented Labs: CBC, BMP 11/18/18 09:50 11/18/18 09:29 INR, PTT INR 1.71 (0.83-1.09) H 11/18/18 09:50 Microbiology 11/11/18 15:00 Gram Stain - Final Ulcer Wound Culture - Final S Aureus Shewanella Putrefaciens 11/14/18 10:45 Gram Stain - Final Foot - Rt Transmetatarsal Amp. Site Wound Culture - Preliminary Presumptive Mrsa (Pbp2a Pos) Gram Negative Bebo 11/14/18 10:45 Gram Stain - Final Bone Tissue Culture - Final S Aureus Anaerobic Culture - Final NO ANAEROBES WERE ISOLATED Problem List - Problems (1) ESRD (end stage renal disease) on dialysis Assessment/Plan: -renal on board -continue dialysis on scheduled days -BUN/Cr 60.6/8.5 -monitor renal function Code(s): N18.6 - END STAGE RENAL DISEASE; Z99.2 - DEPENDENCE ON RENAL DIALYSIS (2) Gangrene Assessment/Plan: -Podiatry on board -s/p R foot transmetatarsal amputation -wound culture positive -dressing change by podiatry -Azactam Code(s): I96 - GANGRENE, NOT ELSEWHERE CLASSIFIED (3) HLD (hyperlipidemia) Assessment/Plan: -Atorvastatin Code(s): E78.5 - HYPERLIPIDEMIA, UNSPECIFIED (4) Type 2 diabetes mellitus with diabetic peripheral angiopathy without gangrene Assessment/Plan: -BGM ACHS -ISS -diabetic diet -HgA1c 6.4% Code(s): E11.51 - TYPE 2 DIABETES W DIABETIC PERIPHERAL ANGIOPATH W/O GANGRENE Qualifiers: Diabetes mellitus senior care insulin use: with senior care use Qualified Code( s): E11.51 - Type 2 diabetes mellitus with diabetic peripheral angiopathy without gangrene; Z79.4 - intermission coordinator (current) use of insulin (5) Atrial fibrillation Assessment/Plan: -Coumadin -Metoprolol -daily INR, therapeutic goal 2-3 -INR 1.71 Code(s): I48.91 - UNSPECIFIED ATRIAL FIBRILLATION Qualifiers: Atrial fibrillation type: chronic Qualified Code(s): I48.2 - Chronic atrial fibrillation (6) Hypotension Assessment/Plan: -[place] Code(s): I95.9 - HYPOTENSION, UNSPECIFIED Assessment/Plan see problem list patient is refusing SNF for d/c, s/p TMA will need PT assessment and recommendation before discharge home
[2018-11-18] MEDS ORDERED: SODIUM CHLORIDE 250 ML IV PRN (10:58)
[2018-11-18] MEDS ORDERED: EPOETIN ALFA 20,000 UNIT/1 ML VIAL IVPUSH ONE (11:00)
[2018-11-18] MEDS: metoPROLOL SUCCINATE 25 MG TAB.SR.24H (FP) PO SCH (14:14)
[2018-11-18] MEDS: SERTRALINE HCL 25 MG TABLET (FP) PO SCH (14:15)
[2018-11-18] MEDS: LACTATED RINGERS SOLUTION 1,000 ML IV SCH (14:18)
--- NOTE | 2018-11-18 14:41 | PN ---
Progress Note (short form) - Note Progress Note: pod #4 alert no complaints dressing changed by podiatry Vital Signs Period Temp Pulse Resp BP Sys/Prince Pulse Ox Last 24 Hr 97.8 F-98.5 F 64-111 18-20 95-140/45-74 99 cor-rrr lungs- clear abd soft,nt ext dressing intact CBC, BMP 11/18/18 09:50 11/18/18 09:29 Microbiology 11/14/18 10:45 Foot - Rt Transmetatarsal Amp. Site Gram Stain - Final 11/14/18 10:45 Foot - Rt Transmetatarsal Amp. Site Wound Culture - Final Mr S Aureus Alcaligenes Faecalis 11/11/18 15:00 Ulcer Gram Stain - Final 11/11/18 15:00 Ulcer Wound Culture - Final Mr S Aureus Shewanella Putrefaciens 11/14/18 10:45 Bone Gram Stain - Final 11/14/18 10:45 Bone Tissue Culture - Final Mr S Aureus 11/14/18 10:45 Bone Anaerobic Culture - Final NO ANAEROBES WERE ISOLATED 11/11/18 14:10 Blood - Peripheral Venous Blood Culture - Final NO GROWTH AFTER 5 DAYS INCUBATION 11/11/18 10:40 Blood - Peripheral Venous Blood Culture - Final NO GROWTH AFTER 5 DAYS INCUBATION a/p s/p amputation of the toes right foot-f/u operative cultures, f/u pathology, suspect she will require tongterm vancomycin with HD contact isolation MRSA, redose vancomycin today continue azactam for now esrd/hd redose vanco today and then with each HD pathology pending bone culture MRSA would continue vancomycin with HD-plan 6 weeks pathology pending switch to ceftriaxone (has gotten ancef before) to finish one week (day #4 azactam) f/u esr/crp Problem List - Problems (1) Non-healing amputation site Code(s): T87.89 - OTHER COMPLICATIONS OF AMPUTATION STUMP (2) ESRD (end stage renal disease) on dialysis Code(s): N18.6 - END STAGE RENAL DISEASE; Z99.2 - DEPENDENCE ON RENAL DIALYSIS (3) Penicillin allergy Code(s): Z88.0 - ALLERGY STATUS TO PENICILLIN
[2018-11-18] MEDS ORDERED: VANCOMYCIN 1 GRAM (PRE-DOCKED) 1,000 MG/250 ML BAG IVPB ONE (14:46)
[2018-11-18] MEDS ORDERED: cefTRIAXone SODIUM 1 GM VIAL ONE (14:56)
[2018-11-18] MEDS ORDERED: DEXTROSE 5%-WATER - 50 ML IVPB ONE (14:56)
[2018-11-18] MEDS: CEFTRIAXONE 1 GM in DEXTROSE 5%-WATER - 50 ML IVPB SCH (14:58)
[2018-11-18 16:21] VITALS: BMI 35.2
--- NOTE | 2018-11-18 16:27 | PATH ---
Surgical Pathology Report Patient Name: SHELLEY ADAMS [facility]. Rec. #: [id number] /Age/Gender: 1940 (Age: 78) / F Account: [id number] Location: [address] [place] [address]/[facility] Taken: 11/14/2018 Received: 11/14/2018 Reported: 11/18/2018 Physicians: Jacqueline Cazares M.D. Specimen(s) Received A: GANGRENOUS TISSUE OF RIGHT FOOT B: METATARSAL HEADS RIGHT FOOT 2ND, 3RD AND 4TH C: FIRST METATARSAL HEAD OF RIGHT FOOT Clinical History Gangrene, peripheral arterial disease, end stage renal disease Final Diagnosis A. GANGRENOUS TISSUE RIGHT FOOT, EXCISION: SKIN AND FIBROCONNECTIVE TISSUE WITH GANGRENOUS NECROSIS AND ABSCESS FORMATION. B. SECOND, THIRD, FOURTH METATARSAL HEADS FROM RIGHT FOOT, EXCISION: TWO PORTIONS OF BONE WITH ACUTE OSTEOMYELITIS. SEPARATE ONE PORTION OF BONE WITH REACTIVE CHANGE. C. FIRST METATARSAL HEAD OF RIGHT FOOT, EXCISION: PORTION OF BONE WITH ACUTE OSTEOMYELITIS. Electronically Signed Jordi Rodriguez M.D. Gross Description A. Received in formalin labeled "gangrenous tissue right foot," is a 6.0 x 5.0 x 0.9 cm aggregate of de leon-brown to chance portions of gangrenous skin and soft tissue. Flow Coordinator sections are submitted in one cassette. B. Received in formalin labeled "second, third, fourth metatarsal heads from right foot," are 3 de leon, undesignated bones ranging from 1.8 x 1.2 x 1.0 cm to 2.1 x 1.7 x 1.6 cm, consistent with metatarsal heads. Sectioning reveals de leon-brown, markedly soft bone. Flow Coordinator full face sections are submitted in 2 cassettes, following decalcification. C. Received in formalin labeled "first metatarsal head of right foot," is a 2.3 x 2.1 x 1.8 cm portion of bone, consistent with a metatarsal head. Sectioning reveals markedly soft bone. A tour sales representative full face section is submitted in one cassette, following decalcification. /11/15/2018 saudi11/15/2018
--- NOTE | 2018-11-18 17:24 | PN ---
Progress Note (short form) - Note Progress Note: Renal follow up for ESRD on HD Pt seen and examined during dialysis earlier today BP stable, AVF with good flow no sob, cp, abd pain, fever or chills Vital Signs Temperature 97.6 F 11/18/18 14:37 Pulse Rate 86 11/18/18 14:37 Respiratory Rate 18 11/18/18 14:37 Blood Pressure 105/69 11/18/18 14:37 O2 Sat by Pulse Oximetry (%) 99 11/17/18 21:00 Intake & Output 11/15/18 11/16/18 11/17/18 11/18/18 23:59 23:59 23:59 23:59 Intake Total 1000 1525 976 600 Balance 1000 1525 976 600 Weight 111.13 kg NAD CTA soft NT/ND no LE edema, clubbing or cyanosis right foot in dressing CBC, BMP 11/18/18 09:50 11/18/18 09:29 Current Medications Acetaminophen (Tylenol -) 650 mg PO Q6H PRN PRN Reason: PAIN LEVEL 1-5 Last Admin: 11/18/18 14:22 Dose: 650 mg Atorvastatin Calcium (Lipitor -) 40 mg PO HS [facility] Last Admin: 11/17/18 22:42 Dose: 40 mg Fentanyl (Sublimaze Injection -) 50 mcg IVPUSH [id number] PRN PRN Reason: PAIN-PACU ORDER X 4 DOSES ONLY Ceftriaxone Sodium 1 gm/ (Dextrose) 50 mls @ 100 mls/hr IVPB DAILY [facility]; Protocol Last Admin: 11/18/18 14:58 Dose: 100 mls/hr Insulin Aspart (Novolog Vial Sliding Scale -) 1 vial SQ ACHS [facility]; Protocol Last Admin: 11/18/18 14:22 Dose: Not Given Metoprolol Succinate (Toprol Xl -) 25 mg PO DAILY [facility] Last Admin: 11/18/18 14:14 Dose: Not Given Midodrine (Proamatine -) 5 mg PO TID-MID [facility] Last Admin: 11/18/18 14:17 Dose: 5 mg Ondansetron HCl (Zofran Injection) 4 mg IVPUSH Q6H PRN PRN Reason: NAUSEA AND/OR VOMITING Sertraline HCl (Zoloft -) 25 mg PO DAILY [facility] Last Admin: 11/18/18 14:15 Dose: 25 mg Sevelamer Carbonate (Renvela -) 2,400 mg PO TIDCM [facility] Last Admin: 11/18/18 14:16 Dose: 2,400 mg Warfarin Sodium (Coumadin -) 10 mg PO DAILY@1800 [facility] Last Admin: 11/17/18 17:43 Dose: 10 mg 78 year old woman with hx of ESRD on HD (MWF), CAD, PVD, DM type 2, CVA, Afib who presents with non-healing right foot wound. #ESRD on HD (MWF) #LE wound/PVD #CKD related Anemia #Leukocytosis #DM2 #CAD #Renal Osteodystrophy tolerating dialysis well this am UF as tolerated Continue Vancoymin with HD x 6 weeks per ID Podiatry follow up discharge planning as per primary. Alon Page DO
[2018-11-18] MEDS: WARFARIN NA 10 MG TABLET (FP) PO SCH (18:15)
[2018-11-18] MEDS ORDERED: INSULIN (NOVOLOG) ASPART 100 UNITS/ML 10ML VIAL ONE (21:37)
[2018-11-18] MEDS: ATORVASTATIN CA 40 MG TABLET (FP) PO SCH (21:42)
[2018-11-19] MEDS ORDERED: PT OWN MED DRAWER 7, Y5N ONE ×3 (01:12→17:41)
[2018-11-19] MEDS: INSULIN SLIDING SCALE (NOVOLOG) 1 VIAL SQ SCH ×4 (06:01→21:58)
[2018-11-19 07:46] LABS: INR 1.77 (0.83-1.09)
[2018-11-19 08:35] LABS: HEMATOCRIT 26.1 % (32.4-45.2); HEMOGLOBIN 8.4 GM/dL (10.7-15.3); MCHC 32.3 g/dl (32.0-36.0); MEAN PLT VOLUME 8.5 fl (7.5-11.1); PLATELET COUNT 259 K/MM3 (134-434); RDW 15.6 % (11.6-15.6); WHITE BLOOD COUNT 6.1 K/mm3 (4.0-10.0)
[2018-11-19 09:06] LABS: ALBUMIN 2.6 g/dl (3.4-5.0); BILIRUBIN,TOTAL 0.2 mg/dL (0.2-1); BLOOD UREA NITROGEN 52.3 mg/dL (7-18); CALCIUM 8.4 mg/dL (8.5-10.1); CREATININE 6.9 mg/dL (0.55-1.3); POTASSIUM 4.4 mmol/L (3.5-5.1); TOT PROT 6.4 g/dl (6.4-8.2)
[2018-11-19] MEDS ORDERED: cefTRIAXone SODIUM 1 GM VIAL ONE (09:08)
[2018-11-19] MEDS ORDERED: DEXTROSE 5%-WATER - 50 ML IVPB ONE (09:08)
[2018-11-19] MEDS: CEFTRIAXONE 1 GM in DEXTROSE 5%-WATER - 50 ML IVPB SCH (09:17)
[2018-11-19] MEDS: SEVELAMER CARBONATE 800 MG TAB (FP) PO SCH ×3 (09:17→17:33)
[2018-11-19] MEDS: metoPROLOL SUCCINATE 25 MG TAB.SR.24H (FP) PO SCH (09:18)
[2018-11-19] MEDS: MIDODRINE HCL 5 MG TABLET PO SCH ×3 (09:18→17:33)
[2018-11-19] MEDS: SERTRALINE HCL 25 MG TABLET (FP) PO SCH (09:18)
[2018-11-19 13:07] LABS: ERYTHROCYTE SEDIMENTATION RATE 101 mm/hr (0-30)
--- NOTE | 2018-11-19 15:22 | PN ---
Progress Note, Physician Chief Complaint: Gangrene R foot ESRD DM History of Present Illness: Previous notes and events reviewed awake and alert NAD POD #5 for resection R foot metatarsal no complaints of pain afebrile - Current Medication List Current Medications: Active Medications Acetaminophen (Tylenol -) 650 mg PO Q6H PRN PRN Reason: PAIN LEVEL 1-5 Last Admin: 11/18/18 14:22 Dose: 650 mg Atorvastatin Calcium (Lipitor -) 40 mg PO HS [facility] Last Admin: 11/18/18 21:42 Dose: 40 mg Fentanyl (Sublimaze Injection -) 50 mcg IVPUSH [id number] PRN PRN Reason: PAIN-PACU ORDER X 4 DOSES ONLY Ceftriaxone Sodium 1 gm/ (Dextrose) 50 mls @ 100 mls/hr IVPB DAILY [facility]; Protocol Last Admin: 11/19/18 09:17 Dose: 100 mls/hr Insulin Aspart (Novolog Vial Sliding Scale -) 1 vial SQ ACHS [facility]; Protocol Last Admin: 11/19/18 11:45 Dose: 2 units Metoprolol Succinate (Toprol Xl -) 25 mg PO DAILY [facility] Last Admin: 11/19/18 09:18 Dose: 25 mg Midodrine (Proamatine -) 5 mg PO TID-MID [facility] Last Admin: 11/19/18 15:10 Dose: 5 mg Ondansetron HCl (Zofran Injection) 4 mg IVPUSH Q6H PRN PRN Reason: NAUSEA AND/OR VOMITING Sertraline HCl (Zoloft -) 25 mg PO DAILY [facility] Last Admin: 11/19/18 09:18 Dose: 25 mg Sevelamer Carbonate (Renvela -) 2,400 mg PO TIDCM [facility] Last Admin: 11/19/18 11:47 Dose: 2,400 mg Warfarin Sodium (Coumadin -) 10 mg PO DAILY@1800 [facility] Last Admin: 11/18/18 18:15 Dose: 10 mg - Objective Vital Signs: Vital Signs Temperature 98.5 F 11/19/18 06:00 Pulse Rate 80 11/19/18 06:00 Respiratory Rate 18 11/19/18 06:00 Blood Pressure 112/51 L 11/19/18 06:00 O2 Sat by Pulse Oximetry (%) 99 11/19/18 10:00 Constitutional: Yes: No Distress, Calm Eyes: Yes: Conjunctiva Clear HENT: Yes: Atraumatic Cardiovascular: Yes: Regular Rate and Rhythm Respiratory: Yes: Regular, CTA Bilaterally Gastrointestinal: Yes: Normal Bowel Sounds, Soft Musculoskeletal: Yes: Muscle Weakness Extremities: Yes: WNL Edema: No Wound/Incision: Yes: Dressing Dry and Intact Neurological: Yes: Alert, Oriented Psychiatric: Yes: Alert, Oriented Labs: CBC, BMP 11/19/18 08:20 11/19/18 08:20 INR, PTT INR 1.77 (0.83-1.09) H 11/19/18 06:45 Microbiology 11/14/18 10:45 Foot - Rt Transmetatarsal Amp. Site Gram Stain - Final 11/14/18 10:45 Foot - Rt Transmetatarsal Amp. Site Wound Culture - Final S Aureus Alcaligenes Faecalis 11/11/18 15:00 Ulcer Gram Stain - Final 11/11/18 15:00 Ulcer Wound Culture - Final S Aureus Shewanella Putrefaciens 11/14/18 10:45 Bone Gram Stain - Final 11/14/18 10:45 Bone Tissue Culture - Final Mr S Aureus 11/14/18 10:45 Bone Anaerobic Culture - Final NO ANAEROBES WERE ISOLATED 11/11/18 14:10 Blood - Peripheral Venous Blood Culture - Final NO GROWTH AFTER 5 DAYS INCUBATION 11/11/18 10:40 Blood - Peripheral Venous Blood Culture - Final NO GROWTH AFTER 5 DAYS INCUBATION Problem List - Problems (1) ESRD (end stage renal disease) on dialysis Assessment/Plan: -renal on board -continue dialysis on scheduled days -BUN/Cr 52.3/6.9 -monitor renal function Code(s): N18.6 - END STAGE RENAL DISEASE; Z99.2 - DEPENDENCE ON RENAL DIALYSIS (2) Gangrene Assessment/Plan: -Podiatry on board -s/p R foot transmetatarsal amputation -wound culture positive -dressing change by podiatry -Ceftriaxone -per ID will need Vancomycin on dialysis days for 6 weeks Code(s): I96 - GANGRENE, NOT ELSEWHERE CLASSIFIED (3) HLD (hyperlipidemia) Assessment/Plan: -Atorvastatin Code(s): E78.5 - HYPERLIPIDEMIA, UNSPECIFIED (4) Type 2 diabetes mellitus with diabetic peripheral angiopathy without gangrene Assessment/Plan: -BGM ACHS -ISS -diabetic diet -HgA1c 6.4% Code(s): E11.51 - TYPE 2 DIABETES W DIABETIC PERIPHERAL ANGIOPATH W/O GANGRENE Qualifiers: Diabetes mellitus keno terminal operator insulin use: with penitentiary use Qualified Code( s): E11.51 - Type 2 diabetes mellitus with diabetic peripheral angiopathy without gangrene; Z79.4 - roasterman (current) use of insulin (5) Atrial fibrillation Assessment/Plan: -Coumadin -Metoprolol -daily INR, therapeutic goal 2-3 -INR 1.77 Code(s): I48.91 - UNSPECIFIED ATRIAL FIBRILLATION Qualifiers: Atrial fibrillation type: chronic Qualified Code(s): I48.2 - Chronic atrial fibrillation (6) Hypotension Assessment/Plan: -[place] Code(s): I95.9 - HYPOTENSION, UNSPECIFIED Assessment/Plan see problem list patient will need PT and visiting nurse services when discharge home
[2018-11-19] MEDS: WARFARIN NA 10 MG TABLET (FP) PO SCH (17:31)
[2018-11-19] MEDS ORDERED: SODIUM CHLORIDE 250 ML IV PRN (17:53)
[2018-11-19] MEDS ORDERED: INSULIN (NOVOLOG) ASPART 100 UNITS/ML 10ML VIAL ONE (21:13)
[2018-11-19] MEDS: ATORVASTATIN CA 40 MG TABLET (FP) PO SCH (21:59)
[2018-11-19] MEDS: ACETAMINOPHEN 325 MG TABLET (FP) PO PRN (22:02)
[2018-11-20] MEDS: INSULIN SLIDING SCALE (NOVOLOG) 1 VIAL SQ SCH ×2 (06:11→14:37)
[2018-11-20] MEDS ORDERED: VANCOMYCIN 1,000 MG in DEXTROSE 5%-WATER - 250 ML IVPB ONE (09:00)
[2018-11-20] MEDS: SEVELAMER CARBONATE 800 MG TAB (FP) PO SCH ×2 (09:11→14:50)
[2018-11-20] MEDS ORDERED: EPOETIN ALFA 20,000 UNIT/1 ML VIAL IVPUSH ONE (09:15)
[2018-11-20] MEDS ORDERED: IRON SUCROSE INJECTION 100 MG in SODIUM CHLORIDE 95 ML IVPB ONE (09:15)
--- NOTE | 2018-11-20 09:30 | PN ---
Progress Note (short form) - Note Progress Note: pod #6 alert no complaints Vital Signs Period Temp Pulse Resp BP Sys/Prince Pulse Ox Last 24 Hr 98.1 F-98.6 F 65-87 18-18 100-145/47-72 99-99 getting washed up I examined the foot last night stump is clean and dry, no drainage, no erythema CBC, BMP 11/19/18 08:20 11/19/18 08:20 Microbiology 11/14/18 10:45 Foot - Rt Transmetatarsal Amp. Site Gram Stain - Final 11/14/18 10:45 Foot - Rt Transmetatarsal Amp. 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
--- NOTE | 2018-11-20 09:38 | DS ---
Physical Examination Vital Signs: Vital Signs Temperature 98.6 F 11/20/18 06:00 Pulse Rate 67 11/20/18 06:00 Respiratory Rate 18 11/20/18 06:00 Blood Pressure 100/53 L 11/20/18 06:00 O2 Sat by Pulse Oximetry (%) 99 11/19/18 21:00 Findings/Remarks: 78 year old woman with pmh chronic systolic chf with moderate LV systolic dysfunction, afib, CVA, HLD, COPD, ESRD on HD, DMII, anemia, PAD admitted for non healing right foot wound per patient she went to see dr ventura on last week and was told to come to ER for admission, she goes for [facility] . ESRD on HD today is HD day transometatarsal amputation of right forefoot on 09/12/18 Constitutional: Yes: Well Nourished, No Distress, Calm Cardiovascular: Yes: Regular Rate and Rhythm Respiratory: Yes: Regular Gastrointestinal: Yes: Normal Bowel Sounds, Soft Musculoskeletal: Yes: WNL Edema: No Wound/Incision: Yes: Dressing Dry and Intact Neurological: Yes: Alert, Oriented Psychiatric: Yes: Alert, Oriented Labs: CBC, BMP 11/19/18 08:20 11/19/18 08:20 Discharge Summary Reason For Visit: GANGRENE,PERIPHERAL ARTERIAL DISEASE,ESRD Current Active Problems ESRD (end stage renal disease) on dialysis (Acute) Gangrene (Acute) HLD (hyperlipidemia) (Acute) Non-healing amputation site (Acute) Type 2 diabetes mellitus with diabetic peripheral angiopathy without gangrene ( Acute) Wound of foot (Acute) Hospital Course: Operative Date: 11/14/18 Pre-Operative Diagnosis: Gangarene with osteomyelitis right foot. Operation: Debridement of bone and soft tissue right foot with excision of 1st, 2nd, 3rd,or 4th metatarsal heads. Bone culture and deep wound culture. Findings: Necrotic bone and soft tissue right foot. Post-Operative Diagnosis: Same as Pre-op Surgeon: Kajal Rodríguez Laboratory Last Values WBC 6.1 K/mm3 (4.0-10.0) 11/19/18 08:20 Corrected WBC (auto) Cancelled 11/11/18 09:15 RBC 2.90 M/mm3 (3.60-5.2) L 11/19/18 08:20 Hgb 8.4 GM/dL (10.7-15.3) L 11/19/18 08:20 Hct 26.1 % (32.4-45.2) L 11/19/18 08:20 MCV 90.0 fl (80-96) 11/19/18 08:20 MCH 29.0 pg (25.7-33.7) 11/19/18 08:20 MCHC 32.3 g/dl (32.0-36.0) 11/19/18 08:20 RDW 15.6 % (11.6-15.6) 11/19/18 08:20 Plt Count 259 K/MM3 (134-434) 11/19/18 08:20 MPV 8.5 fl (7.5-11.1) 11/19/18 08:20 Absolute Neuts (auto) 7.8 K/mm3 (1.5-8.0) 11/11/18 10:40 Neutrophils % 70.8 % (42.8-82.8) 11/11/18 10:40 Lymphocytes % 18.8 % (8-40) 11/11/18 10:40 Monocytes % 9.1 % (3.8-10.2) 11/11/18 10:40 Eosinophils % 0.1 % (0-4.5) 11/11/18 10:40 Basophils % 1.2 % (0-2.0) 11/11/18 10:40 Nucleated RBC % 0 % (0-0) 11/11/18 10:40 Platelet Estimate Cancelled 11/11/18 09:15 Platelet Comment Cancelled 11/11/18 09:15 ESR 101 mm/hr (0-30) H 11/19/18 08:20 PT with INR 21.00 SEC (9.7-13.0) H 11/19/18 06:45 INR 1.77 (0.83-1.09) H 11/19/18 06:45 PTT (Actin FS) 44.9 SECONDS (25.2-36.5) H 11/12/18 06:30 Sodium 137 mmol/L (136-145) 11/19/18 08:20 Potassium 4.4 mmol/L (3.5-5.1) 11/19/18 08:20 Chloride 100 mmol/L (98-107) 11/19/18 08:20 Carbon Dioxide 29 mmol/L (21-32) 11/19/18 08:20 Anion Gap 9 MMOL/L (8-16) 11/19/18 08:20 BUN 52.3 mg/dL (7-18) H 11/19/18 08:20 Creatinine 6.9 mg/dL (0.55-1.3) H 11/19/18 08:20 Est GFR (CKD-EPI)AfAm 6.13 11/19/18 08:20 Est GFR (CKD-EPI)NonAf 5.29 11/19/18 08:20 POC Glucometer 175 UNITS (80-120) 11/20/18 05:35 Random Glucose 169 mg/dL (74-106) H 11/19/18 08:20 Hemoglobin A1c % 6.4 % (4.2-6.3) H 11/12/18 06:30 Calcium 8.4 mg/dL (8.5-10.1) L 11/19/18 08:20 Phosphorus 3.3 mg/dL (2.5-4.9) 11/15/18 10:30 Magnesium 1.9 mg/dL (1.8-2.4) 11/12/18 06:30 Total Bilirubin 0.2 mg/dL (0.2-1) 11/19/18 08:20 AST 13 U/L (15-37) L 11/19/18 08:20 ALT 12 U/L (13-61) L 11/19/18 08:20 Alkaline Phosphatase 60 U/L (45-117) 11/19/18 08:20 Troponin I < 0.02 ng/ml (0.00-0.05) 11/12/18 06:30 C-Reactive Protein 4.1 MG/DL (0.00-0.3) H 11/19/18 08:20 Total Protein 6.4 g/dl (6.4-8.2) 11/19/18 08:20 Albumin 2.6 g/dl (3.4-5.0) L 11/19/18 08:20 Random Vancomycin 14.4 ug/ml (18-26) L 11/15/18 11:30 Hep A IgM Ab Confirm Negative (Negative) 11/11/18 13:50 Hepatitis A Ab Total Positive (Negative) H 11/11/18 13:50 Hep Bs Antigen Negative (Negative) 11/11/18 13:50 Hep Bs Antibody Reactive (.) 11/11/18 13:50 Hep B Core Total Ab Negative (Negative) 11/11/18 13:50 Hep C Ab Diagnostic <0.1 s/co ratio (0.0-0.9) 11/11/18 13:50 Blood Type O POSITIVE 11/18/18 09:50 Antibody Screen Negative 11/18/18 09:50 Microbiology 11/14/18 10:45 Foot - Rt Transmetatarsal Amp. Site Gram Stain - Final 11/14/18 10:45 Foot - Rt Transmetatarsal Amp. Site Wound Culture - Final S Aureus Alcaligenes Faecalis 11/11/18 15:00 Ulcer Gram Stain - Final 11/11/18 15:00 Ulcer Wound Culture - Final S Aureus Shewanella Putrefaciens 11/14/18 10:45 Bone Gram Stain - Final 11/14/18 10:45 Bone Tissue Culture - Final Mr S Aureus 11/14/18 10:45 Bone Anaerobic Culture - Final NO ANAEROBES WERE ISOLATED 11/11/18 14:10 Blood - Peripheral Venous Blood Culture - Final NO GROWTH AFTER 5 DAYS INCUBATION 11/11/18 10:40 Blood - Peripheral Venous Blood Culture - Final NO GROWTH AFTER 5 DAYS INCUBATION Vital Signs Temp 98.6 F 11/20/18 06:00 Pulse 67 11/20/18 06:00 Resp 18 11/20/18 06:00 BP 100/53 L 11/20/18 06:00 Pulse Ox 99 11/19/18 21:00 Intake & Output 11/19/18 11/19/18 11/20/18 11:59 23:59 11:59 Intake Total 460 600 240 Balance 460 600 240 Intake: IV 10 saline lock 10 IVPB 50 Oral 400 600 240 Other: Voiding Method Bedside Commode Bedside Commode Bedside Commode # Unmeasured Voids Void 1 Bowel Movement No No No # Bowel Movements 1 Condition: Stable - Instructions Diet, Activity, Other Instructions: *Regranex oint daily, when receive Regranex, please keep in refrigerator right away. f/u wound care on this , ambulate with front off loading shoe per Dr. Rodríguez Vancomycin 1gm IVPB x 5 weeks starting 11/20/18 Disposition: RETIREMENT FACILITY - Home Medications Comprehensive Discharge Medication List: Ambulatory Orders Glimepiride [Amaryl -] 4 mg PO DAILY 08/20/18 Metoprolol Succinate [Toprol Xl -] 25 mg PO DAILY 08/20/18 Sertraline HCl [Zoloft -] 25 mg PO DAILY 08/20/18 Sevelamer Carbonate [Renvela] 2,400 mg PO ASDIR 08/20/18 Sodium Bicarbonate 650 mg PO DAILY 08/20/18 Vitamin B Comp W-C [Nephro-Mahi -] 1 tablet PO DAILY tablet 09/11/18 Midodrine HCl 10 mg PO DAILY 09/26/18 Glimepiride [Amaryl -] 4 mg PO DAILY 11/11/18 Insulin (Levemir) [Levemir Vial] 32 units SQ AM 11/11/18 Simvastatin [Zocor -] 40 mg PO HS 11/11/18 Warfarin Sodium [Coumadin] 10 mg PO DAILY 11/11/18 Becaplermin [Regranex] 15 gm TP DAILY #15 gel..gram. 11/17/18
[2018-11-20] MEDS: MIDODRINE HCL 5 MG TABLET PO SCH ×2 (10:00→14:50)
[2018-11-20 10:49] LABS: HEMOGLOBIN 8.3 GM/dL (10.7-15.3); MCH 30.4 pg (25.7-33.7); MCHC 33.4 g/dl (32.0-36.0); MEAN CELL VOLUME 91.1 fl (80-96); MEAN PLT VOLUME 8.6 fl (7.5-11.1); PLATELET COUNT 271 K/MM3 (134-434); RBC 2.74 M/mm3 (3.60-5.2); RDW 15.7 % (11.6-15.6); WHITE BLOOD COUNT 7.7 K/mm3 (4.0-10.0)
[2018-11-20 11:00] LABS: INR 2.33 (0.83-1.09); PROTHROMBIN TIME (PATIENT) 27.7 SEC (9.7-13.0)
[2018-11-20 11:19] LABS: BLOOD UREA NITROGEN 62.9 mg/dL (7-18); CALCIUM 8.4 mg/dL (8.5-10.1); PHOSPHOROUS 3.6 mg/dL (2.5-4.9); POTASSIUM 4.5 mmol/L (3.5-5.1)
[2018-11-20 11:23] LABS: CREATININE 8.2 mg/dL (0.55-1.3)
[2018-11-20] MEDS ORDERED: WARFARIN NA 5 MG TABLET (UD) PO ONE ×2 (14:00→18:00)
[2018-11-20] MEDS ORDERED: DEXTROSE 5%-WATER - 50 ML IVPB ONE (14:39)
[2018-11-20] MEDS ORDERED: cefTRIAXone SODIUM 1 GM VIAL ONE (14:39)
[2018-11-20] MEDS ORDERED: PT OWN MED DRAWER 7, Y5N ONE (14:41)
[2018-11-20] MEDS: SERTRALINE HCL 25 MG TABLET (FP) PO SCH (14:50)
[2018-11-20] MEDS: metoPROLOL SUCCINATE 25 MG TAB.SR.24H (FP) PO SCH (14:50)
[2018-11-20] MEDS: CEFTRIAXONE 1 GM in DEXTROSE 5%-WATER - 50 ML IVPB SCH (14:51)
[2018-11-20 15:41] VITALS: BP 107/66; PULSE 78; TEMP 98.2
[2018-11-21] MEDS ORDERED: WARFARIN NA 10 MG TABLET (FP) PO SCH (18:00)
--- NOTE | 2018-12-13 07:05 | OP ---
DATE OF OPERATION: 11/14/2018 SURGEON: Kajal Rodríguez DPM CASTING INSPECTOR: Roman Kate DPM PREOPERATIVE DIAGNOSIS: Gangrene with osteomyelitis of the right foot. PROCEDURE: Debridement of bone and soft tissue, right foot, with excision of the 1st, 2nd, 3rd, and 4th metatarsal heads with bone culture and deep wound culture. PROCEDURE WAS FOLLOWS: After noting all preoperative vital signs within normal limits and after the surgical consent was signed and witnessed, the patient was brought to the OR and placed on the table in the supine position. Once the patient was on the table, the patients foot was then prepped and draped in the usual sterile fashion. Once the patients foot was prepped and draped, attention was directed to the forefoot that had been revised prior to today. Upon examination of the forefoot, it was noted to have necrotic tissue and upon examination of the x-ray, there was noted to be changes in bone. At this time, using sharp and blunt dissection, the incision over the forefoot was deepened over metatarsals 1, 2, 3, and 4. This incision was deepened using sharp and blunt dissection. All necrotic tissue that was encountered was resected and sent down to Pathology. A deep wound culture was done at this time, as well. Attention was then directed to the 1st metatarsal head, 2nd metatarsal head, 3rd metatarsal head, and 4th metatarsal head. They were all liberated from soft tissue structures surrounding them. Once this was done, utilizing a sagittal saw, the distal 1/3 to 1/4 of each metatarsal was resected removing the heads and sent down to Pathology. Once this was done, the wound was examined again. All necrotic tissue that was visible was resected. A flush was then done with copious amounts of sterile saline that had Bacitracin added to it. The area was then dressed after retention sutures had been put into place with Xeroform gauze, a fluff dressing, and a combine. A Kerlix was then applied, and an Armand bandage was applied over that. The patient tolerated the anesthesia and the procedure well. Patient returned to the recovery room with vital signs stable and vascular status intact. JAZMYN Reyes/[id number]
== END 2018-11-20 16:33 | disposition home health service (06) | DRG 239 ==
LOC: JER 08:27 → JERBED 10:07 → J5S 12:33
PROVIDERS: ADMIT Family Medicine; ATTEND Family Medicine
PROC: 0Y6M0ZB Detachment at Right Foot, Partial 2nd Ray, Open Approach (ICD-10-PCS; 2018-11-14)
PROC: 0Y6M0ZC Detachment at Right Foot, Partial 3rd Ray, Open Approach (ICD-10-PCS; 2018-11-14)
PROC: 0Y6M0ZD Detachment at Right Foot, Partial 4th Ray, Open Approach (ICD-10-PCS; 2018-11-14)
PROC: 0QBQ0ZZ Excision of Right Toe Phalanx, Open Approach (ICD-10-PCS; 2018-11-14)
PROC: 0Y6M0Z9 Detachment at Right Foot, Partial 1st Ray, Open Approach (ICD-10-PCS; principal; 2018-11-14 09:00)
PROC: 5A1D70Z Performance of Urinary Filtration, Intermittent, Less than 6 Hours Per Day (ICD-10-PCS; 2018-11-20)
DX: E11.52 Type 2 diabetes mellitus with diabetic peripheral angiopathy with gangrene (principal); N18.6 End stage renal disease; I50.22 Chronic systolic (congestive) heart failure; I13.2 Hypertensive heart and chronic kidney disease with heart failure and with stage 5 chronic kidney disease, or end stage renal disease; M86.171 Other acute osteomyelitis, right ankle and foot; T87.89 Other complications of amputation stump; I25.10 Atherosclerotic heart disease of native coronary artery without angina pectoris; E11.621 Type 2 diabetes mellitus with foot ulcer; E11.22 Type 2 diabetes mellitus with diabetic chronic kidney disease; E11.69 Type 2 diabetes mellitus with other specified complication; E78.5 Hyperlipidemia, unspecified; I48.2 Chronic atrial fibrillation; I95.9 Hypotension, unspecified; D63.1 Anemia in chronic kidney disease; D72.829 Elevated white blood cell count, unspecified; N25.0 Renal osteodystrophy; Z88.0 Allergy status to penicillin; Z99.2 Dependence on renal dialysis; E66.9 Obesity, unspecified; Z68.35 Body mass index [BMI] 35.0-35.9, adult; Y83.9 Surgical procedure, unspecified as the cause of abnormal reaction of the patient, or of later complication, without mention of misadventure at the time of the procedure
CPT/HCPCS: 36415; 73630-TC-RT-FY; 73718-TC-RT; 80048; 80053; 82565; 82962; 83036; 83735; 84100; 84484; 84520; 85025; 85027; 85610; 85651; 85730; 86140; 86704; 86706; 86708; 86803; 86850; 86900; 86901; 87040; 87070; 87075; 87186; 87205; 87340; 88304-TC; 88305-TC; 88311-TC; 93005; 93010; 94760; 97116-GP; 97161-GP; 99283-25; G0277; G0480; J0885; J1644; J1756

== ENCOUNTER 2019-05-02 18:21 | Inpatient (IN) | payer OTHER, MEDICARE ==
[2019-05-02] MEDS ORDERED: SODIUM CHLORIDE 0.9% 1000 ML INFUS.BAG IV ONE (20:48)
[2019-05-02 21:47] LABS: BASO % 0.3 % (0-2.0); HEMATOCRIT 34.7 % (32.4-45.2); HEMOGLOBIN 11.4 GM/dL (10.7-15.3); LYMPH % 15.2 % (8-40); MCH 28.4 pg (25.7-33.7); MCHC 32.7 g/dl (32.0-36.0); MEAN PLT VOLUME 9.4 fl (7.5-11.1); MONO % 13.2 % (3.8-10.2); NEUT % 71.3 % (42.8-82.8); PLATELET COUNT 231 K/MM3 (134-434); RBC 3.99 M/mm3 (3.60-5.2); RDW 17.8 % (11.6-15.6); WHITE BLOOD COUNT 10.7 K/mm3 (4.0-10.0)
--- NOTE | 2019-05-02 23:11 | PDOC ---
Documentation entered by Fidel Mckeon SCRIBE, acting as scribe for Akilah Whipple MD. Akilah Whipple MD: This documentation has been prepared by the Mike mckee Daniel, SCRIBE, under my direction and personally reviewed by me in its entirety. I confirm that the documentation accurately reflects all work, treatment, procedures, and medical decision making performed by me. History of Present Illness - General Chief Complaint: Diarrhea Stated Complaint: DIARRHEA Time Seen by Provider: 05/02/19 20:27 History Source: Patient Exam Limitations: No Limitations - History of Present Illness Initial Comments: 05/02/19 21:03 78 yo F h/o IDDM ESRD ( dialysis m/w/f) , HLD, HTN, and afib (on coumadin) here today for evaluation of diarrhea. The patient reports that she has been having intermittent diarrhea for the past few weeks that seemed to get better before worsening a few days ago. She describes her diarrhea as loose, watery, and foul smelling and notes seeing blood when she wipes. She states that she felt weak and dizzy today and spoke to Dr. David who told her to come in. was recently treated with abx for a post op wound infeciton folowing toe amputation. normally gets dialyzed m/w/f. states was unable to go today because was constantly going to the bathroom. Patient denies headache. Denies fever, chills. Denies chest pain, shortness of breath. Denies nausea, vomiting, abdominal pain. Allergies: penicillins Surgical history: Right forefoot amputation PCP: Kishore David Past History - Past Medical History Allergies/Adverse Reactions: Allergies Allergy/AdvReac Type Severity Reaction Status Date / Time Penicillins Allergy Swelling Verified 05/02/19 18:42 Home Medications: Ambulatory Orders Metoprolol Succinate [Toprol XL -] 25 mg PO DAILY 08/20/18 Sertraline HCl [Zoloft -] 25 mg PO DAILY 08/20/18 Sevelamer Carbonate [Renvela -] 2,400 mg PO ASDIR 08/20/18 Vitamin B Comp W-C [Nephro-Mahi -] 1 tablet PO DAILY tablet 09/11/18 Glimepiride [Amaryl -] 4 mg PO DAILY 11/11/18 Becaplermin [Regranex] 15 gm TP DAILY #15 gel..gram. 11/17/18 Acetaminophen [Tylenol .Regular Strength -] 650 mg PO Q6H PRN tablet 11/20/18 Atorvastatin Ca [Lipitor] 40 mg PO HS tablet 11/20/18 Insulin Sliding Scale [Novolog Vial Sliding Scale -] 1 vial SQ ACHS units 11/20 Midodrine HCl [Proamatine -] 5 mg PO TID-MID tablet 11/20/18 Warfarin Na [Coumadin -] 10 mg PO DAILY@1800 tablet 11/20/18 Anemia: Yes Asthma: No Cancer: No Cardiac Disorders: Yes (ARRHYTHMIA, H/O A FIB,CAD) CVA: No COPD: No CHF: Yes Dementia: No Diabetes: Yes (1993) Dialysis: Yes () GI Disorders: No Disorders: Yes (RENAL DIALYSIS STARTED 2003) HTN: Yes Hypercholesterolemia: Yes Liver Disease: No Seizures: No Thyroid Disease: No - Surgical History Abdominal Surgery: Yes (UMBILICAL HERNIA REPAIR) Appendectomy: Yes (MANY YRS AGO) Cardiac Surgery: No Cholecystectomy: Yes (MANY YRS AGO) Lung Surgery: No Neurologic Surgery: No Orthopedic Surgery: No - Immunization History Immunization Up to Date: Yes - Psycho Social/Smoking Cessation Hx Smoking History: Never smoked Have you smoked in the past 12 months: No Cigars Per Day: 0 Hx Alcohol Use: No Drug/Substance Use Hx: No Substance Use Type: None Hx Substance Use Treatment: No Review of Systems - Review of Systems Able to Perform ROS?: Yes Comments:: 05/02/19 21:03 GENERAL/CONSTITUTIONAL: +general weakness. No fever or chills. HEAD, EYES, EARS, NOSE AND THROAT: No change in vision. No ear pain or discharge. No sore throat. CARDIOVASCULAR: No chest pain or shortness of breath. RESPIRATORY: No cough, wheezing, or hemoptysis. GASTROINTESTINAL: +diarrhea. No nausea, vomiting, or constipation. GENITOURINARY: No dysuria, frequency, or change in urination. MUSCULOSKELETAL: No joint or muscle swelling or pain. No neck or back pain. SKIN: No rash NEUROLOGIC: +dizziness. No headache, loss of consciousness, or change in strength/sensation. ENDOCRINE: No increased thirst. No abnormal weight change. HEMATOLOGIC/LYMPHATIC: No anemia, easy bleeding, or history of blood clots. ALLERGIC/IMMUNOLOGIC: No hives or skin allergy. *Physical Exam - Vital Signs Last Vital Signs Temp Pulse Resp BP Pulse Ox 98.2 F 74 18 88/40 L 98 05/02/19 18:37 05/02/19 18:37 05/02/19 18:37 05/02/19 18:37 05/02/19 18:37 - Physical Exam 05/02/19 23:07 awake alert lung clear bilat heart rrr nomrg abd soft nt nd ext wwp right upper ext fistula good bruit rectal exam with yellowish watery stool in vault. no gross blood. small wound lateral to rectum 3 o clock position. open. no drainage. nuero alert oriented x 3. ED Treatment Course - LABORATORY CBC & Chemistry Diagram: 05/02/19 21:30 05/02/19 21:30 - ADDITIONAL ORDERS Additional order review: Laboratory Results 05/02/19 21:30 Lactic Acid 2.4 H* 05/02/19 21:30 RBC 3.99 MCV 87.0 MCHC 32.7 RDW 17.8 H MPV 9.4 Neutrophils % 71.3 Lymphocytes % 15.2 Monocytes % 13.2 H Eosinophils % 0.0 D Basophils % 0.3 - RADIOLOGY Radiology Studies Ordered: Category Date Time Status CHEST X-RAY PORTABLE* [RAD] Stat Radiology 05/02/19 20:43 Taken - Medications Given in the ED: ED Medications Discontinued Medications Generic Name Dose Route Start Last Admin Trade Name Freq PRN Reason Stop Dose Admin Sodium Chloride 250 ml 05/02/19 20:48 05/02/19 21:36 Normal Saline - IV 05/02/19 20:49 250 ml ONCE ONE Administration Medical Decision Making - Medical Decision Making 05/02/19 23:09 Dry 78-year-old female history of hypertension diabetes end-stage renal disease dialysis Sunday here today with loose watery stool patient was recently biotics has had intermittent diarrhea for the last 3 weeks it was improved and then started back again today has had several episodes of loose stools unable to get dialysis due to the amount of time she was spending on the toilet is feeling very weak dizzy and lightheaded denies any fevers or chills does have nausea but no vomiting My exam patient's abdominal exam is nontender there is foul-smelling yellowish stool in the vault Differential includes dehydration, electrode abnormality, C. difficile is considered due to her recent antibiotics. Plan will treat her with oral Flagyl C. difficile was sent patient will likely require admission for dialysis that she has not gotten her dialysis and 05/03/19 00:36 pt bp improved with iv hydration given small boluses 250 mL x 2. give PO flagyl. stol sample sent. pt will require dialysis. admit to med/ surg. r/o cdiff, colitis, dehydration and Discharge - Discharge Information Problems reviewed: Yes Clinical Impression/Diagnosis: Colitis, ESRD (end stage renal disease) - Admission Yes - Follow up/Referral Referrals: Kishore David MD [Primary Care Provider] - - Patient Discharge Instructions - Post Discharge Activity
[2019-05-03] MEDS ORDERED: metroNIDAZOLE 250 MG TABLET PO ONE (00:18)
[2019-05-03] MEDS ORDERED: SODIUM CHLORIDE 0.9% 1000 ML INFUS.BAG IV ONE (00:19)
[2019-05-03 00:59] LABS: GLUCOSE,RANDOM 50 mg/dL (74-106)
[2019-05-03 01:00] LABS: BLOOD UREA NITROGEN 73.9 mg/dL (7-18); CHLORIDE 97 mmol/L (98-107); SODIUM 135 mmol/L (136-145)
[2019-05-03 01:01] LABS: CALCIUM 8.5 mg/dL (8.5-10.1); CO2 24 mmol/L (21-32); TOT PROT 6.9 g/dl (6.4-8.2)
[2019-05-03 01:02] LABS: ALK PHOS 88 U/L (45-117); BILIRUBIN,TOTAL 0.3 mg/dL (0.2-1); SGOT/AST 12 U/L (15-37); SGPT/ALT 10 U/L (13-61)
[2019-05-03 01:19] LABS: LIPASE 38 U/L (73-393)
[2019-05-03 01:21] LABS: CREATININE 11.6 mg/dL (0.55-1.3)
[2019-05-03] MEDS ORDERED: metroNIDAZOLE 250 MG TABLET ONE ×2 (01:22→06:43)
--- NOTE | 2019-05-03 02:00 | HP ---
Admitting History and Physical - Primary Care Physician PCP: Dr. Cazares - Admission Chief Complaint: Diarrhea History of Present Illness: 78 year old female with PMHx of IDDM, ESRD on HD (MWF), HLD, HTN, and A-fib ( on coumadin) arrived to ED for evaluation of diarrhea. Patient reports she has been having intermittent diarrhea for the past few weeks that seemed to get better before worsening a few days ago. Diarrhea is loose, watery, and foul smelling and notes seeing blood when she wipes. According to patient she was recently treated with flagyl and vancomycin PO for Colitis ? C-diff. Patient denies headache, fever, chills, chest pain, shortness of breath. Patient denies nausea, vomiting, abdominal pain. - Past Medical History Cardiovascular: Yes: AFIB, CAD, CHF, HTN, Hyperlipdemia Renal/: Yes: Renal Failure, Hemodialysis Heme/Onc: Yes: Anemia Endocrine: Yes: Diabetes Mellitus - Past Surgical History Past Surgical History: Yes: Hernia Repair, Appendectomy, AV Fistula/Graft, Cholecystectomy - Smoking History Smoking history: Never smoked Have you smoked in the past 12 months: No - Alcohol/Substance Use Hx Alcohol Use: No History of Substance Use: reports: None - Social History Usual Living Arrangement: Yes: With Spouse ADL: Independent History of Recent Travel: No Home Medications - Allergies Allergies/Adverse Reactions: Allergies Allergy/AdvReac Type Severity Reaction Status Date / Time Penicillins Allergy Swelling Verified 05/02/19 18:42 - Home Medications Home Medications: Ambulatory Orders Metoprolol Succinate [Toprol XL -] 25 mg PO DAILY 08/20/18 Sertraline HCl [Zoloft -] 25 mg PO DAILY 08/20/18 Sevelamer Carbonate [Renvela -] 2,400 mg PO ASDIR 08/20/18 Vitamin B Comp W-C [Nephro-Mahi -] 1 tablet PO DAILY tablet 09/11/18 Glimepiride [Amaryl -] 4 mg PO DAILY 11/11/18 Becaplermin [Regranex] 15 gm TP DAILY #15 gel..gram. 11/17/18 Acetaminophen [Tylenol .Regular Strength -] 650 mg PO Q6H PRN tablet 11/20/18 Atorvastatin Ca [Lipitor] 40 mg PO HS tablet 11/20/18 Insulin Sliding Scale [Novolog Vial Sliding Scale -] 1 vial SQ ACHS units 11/20 Midodrine HCl [Proamatine -] 5 mg PO TID-MID tablet 11/20/18 Warfarin Na [Coumadin -] 10 mg PO DAILY@1800 tablet 11/20/18 Family Medical History Family History: Denies Review of Systems - Review of Systems Constitutional: reports: Malaise HENT: reports: No Symptoms Neck: reports: No Symptoms Cardiovascular: reports: No Symptoms Respiratory: reports: No Symptoms Gastrointestinal: reports: Diarrhea Genitourinary: reports: No Symptoms Musculoskeletal: reports: No Symptoms Integumentary: reports: No Symptoms Neurological: reports: Dizziness Endocrine: reports: No Symptoms Hematology/Lymphatic: reports: No Symptoms Psychiatric: reports: No Symptoms Physical Examination Vital Signs: Vital Signs Temperature 97.9 F 05/02/19 23:25 Pulse Rate 60 05/02/19 23:25 Respiratory Rate 18 05/02/19 18:37 Blood Pressure 99/43 L 05/02/19 23:25 O2 Sat by Pulse Oximetry (%) 93 L 05/02/19 23:25 Constitutional: Yes: No Distress, Calm Eyes: Yes: Conjunctiva Clear, EOM Intact HENT: Yes: Atraumatic, Normocephalic Neck: Yes: Supple, Trachea Midline Cardiovascular: Yes: Regular Rate and Rhythm Respiratory: Yes: Regular, CTA Bilaterally Gastrointestinal: Yes: Normal Bowel Sounds, Soft ...Rectal Exam: Yes: Guaiac Negative Musculoskeletal: Yes: WNL Extremities: Yes: WNL Edema: No Peripheral Pulses WNL: Yes Neurological: Yes: Alert, Oriented Labs: CBC, BMP 05/02/19 21:30 05/02/19 21:30 Imaging - Results Chest X-ray: Report Reviewed (No acute infiltrate/ consolidation) Problem List - Problems (1) Colitis Code(s): K52.9 - NONINFECTIVE GASTROENTERITIS AND COLITIS, UNSPECIFIED (2) ESRD (end stage renal disease) Code(s): N18.6 - END STAGE RENAL DISEASE (3) Anemia Code(s): D64.9 - ANEMIA, UNSPECIFIED Qualifiers: Anemia type: other cause Other causes of anemia: chronic disease, kidney (4) Atrial fibrillation Code(s): I48.91 - UNSPECIFIED ATRIAL FIBRILLATION Qualifiers: Atrial fibrillation type: chronic (5) Diabetes Code(s): E11.9 - TYPE 2 DIABETES MELLITUS WITHOUT COMPLICATIONS Qualifiers: Diabetes mellitus type: type 2 (6) ESRD (end stage renal disease) on dialysis Code(s): N18.6 - END STAGE RENAL DISEASE; Z99.2 - DEPENDENCE ON RENAL DIALYSIS (7) HLD (hyperlipidemia) Code(s): E78.5 - HYPERLIPIDEMIA, UNSPECIFIED (8) HTN (hypertension) Code(s): I10 - ESSENTIAL (PRIMARY) HYPERTENSION Qualifiers: Hypertension type: essential hypertension Qualified Code(s): I10 - Essential (primary) hypertension (9) Obesity Code(s): E66.9 - OBESITY, UNSPECIFIED (10) S/P amputation Code(s): Z89.9 - ACQUIRED ABSENCE OF LIMB, UNSPECIFIED (11) Type 2 diabetes mellitus with diabetic chronic kidney disease Code(s): E11.22 - TYPE 2 DIABETES MELLITUS W DIABETIC CHRONIC KIDNEY DISEASE (12) Lactic acidosis Code(s): E87.2 - ACIDOSIS Assessment/Plan 78 year old female with PMHx of IDDM, ESRD on HD (MWF), HLD, HTN, and A-fib ( on coumadin) arrived to ED for evaluation of diarrhea. # Colitis ? C-diff - follow up stool culture - follow up C-diff antigen - occult blood negative - given Flagyl x1 - will continue with flagyl po - follow up ID in AM # elevated lacitic acid - s/p IVF 250 ml x2 - Follow up repeat lactic acid level # ESRD on HD - Will have dialysis tomorrow - Continue with routine dialysis MWF - Monitor fistula site - Sevelamer Carbonate 2,400 mg PO TID - Vitamin B Comp W-C 1 tablet PO DAILY - Follow up nephro # HTN/HLD -Atorvastatin Ca 40 mg PO HS -Midodrine HCl 5 mg PO TID-MID -Monitor BP closely # A-fib -Metoprolol Succinate 25 mg PO DAILY -Warfarin Na 10 mg PO DAILY -Monitor HR, follow up PT/INR # DM - edmund glucose 50, given D50w x1 -hold Amaryl -monitor BID AC without coverage for now #Depression -Sertraline HCl 25 mg PO DAILY FEN: given IVF 250 ml x2 ( limit fluids), Replace lytes as needed, IVY/NCS VTE: on Coumadin Visit type - Emergency Visit Emergency Visit: Yes ED Registration Date: 05/02/19 Care time: The patient presented to the Emergency Department on the above date and was hospitalized for further evaluation of their emergent condition. - New Patient This patient is new to me today: Yes Date on this admission: 05/03/19 - Critical Care Critical Care patient: No
[2019-05-03] MEDS ORDERED: DEXTROSE 50%-WATER - 25 GM/50 ML VIAL IVPUSH ONE (02:01)
[2019-05-03] MEDS ORDERED: DEXTROSE 50%-WATER 25 GM/50 ML DISP.SYRIN ONE (02:09)
[2019-05-03] MEDS ORDERED: ACETAMINOPHEN 325 MG TABLET (FP) PO PRN (02:15)
[2019-05-03] MEDS ORDERED: metroNIDAZOLE 500 MG TABLET PO SCH (06:00)
[2019-05-03] MEDS: SEVELAMER CARBONATE 800 MG TAB (FP) PO SCH ×3 (08:35→18:18)
--- NOTE | 2019-05-03 09:40 | CONSULT ---
Consult - text type - Consultation Consultation Note: Renal consult for ESRD on HD Coverage for Dr. Jensen This is a 78 year old woman with history of ESRD on HD, DM, Afib on Coumadin who presented from home with diarrhea x 3 weeks. Pt missed last dialysis yesterday. Was in [facility] several weeks ago for hypoglycemia and was given Anitbitoics at that time. Denies any abd pain, N/V or sick contacts. No chest pain or sob. No leg swelling. PMhx: as above Allergies: PCN Family Hx: NC Social Hx: No T/A/D ROS: as per HPI, all other pertinent ros negative Home Medications Medication Instructions Recorded Metoprolol Succinate [Toprol XL -] 25 mg PO DAILY 08/20/18 Sertraline HCl [Zoloft -] 25 mg PO DAILY 08/20/18 Sevelamer Carbonate [Renvela -] 2,400 mg PO ASDIR 08/20/18 Vitamin B Comp W-C [Nephro-Mahi -] 1 tablet PO DAILY tablet 09/11/18 Glimepiride [Amaryl -] 4 mg PO DAILY 11/11/18 Becaplermin [Regranex] 15 gm TP DAILY #15 gel..gram. 11/17/18 Acetaminophen [Tylenol .Regular 650 mg PO Q6H PRN tablet 11/20/18 Strength -] Atorvastatin Ca [Lipitor] 40 mg PO HS tablet 11/20/18 Midodrine HCl [Proamatine -] 5 mg PO TID-MID tablet 11/20/18 Warfarin Na [Coumadin -] 10 mg PO DAILY@1800 tablet 11/20/18 Insulin Glargine,Hum.rec.anlog 32 units SQ BID 05/03/19 [Lantus Solostar PEN (NF)] Vital Signs Temperature 97.3 F L 05/03/19 04:25 Pulse Rate 73 05/03/19 04:25 Respiratory Rate 18 05/03/19 04:25 Blood Pressure 102/37 L 05/03/19 04:25 O2 Sat by Pulse Oximetry (%) 98 05/03/19 04:25 Intake & Output 04/30/19 05/01/19 05/02/19 05/03/19 23:59 23:59 23:59 23:59 Weight 110 kg NAD awake and alert neck supple RRR CTA soft NT/ND no LE edema right arm AVF CBC, BMP 05/02/19 21:30 05/02/19 21:30 Current Medications Acetaminophen (Tylenol -) 650 mg PO Q6H PRN PRN Reason: PAIN LEVEL 1-5 Albumin Human (Albumin Human 25%) 12.5 gm IVPB Q30M [facility] Atorvastatin Calcium (Lipitor -) 40 mg PO HS [facility] Sodium Chloride (Normal Saline -) 250 mls @ 3,000 mls/hr IV PRN PRN PRN Reason: Hypotension during Dialysis Stop: 05/04/19 09:36 Metoprolol Succinate (Toprol Xl -) 25 mg PO DAILY [facility] Metronidazole (Flagyl -) 500 mg PO TID [facility] Last Admin: 05/03/19 06:43 Dose: 500 mg Midodrine (Proamatine -) 5 mg PO TID-MID [facility] Multivit/Ca Carb/B Cmplx/FA/Prenat (Nephro-Mahi -) 1 tablet PO DAILY [facility] Non-Formulary Medication (Becaplermin [Regranex]) 15 gm TP DAILY [facility] Sertraline HCl (Zoloft -) 25 mg PO DAILY [facility] Sevelamer Carbonate (Renvela -) 2,400 mg PO TIDCM [facility] Last Admin: 05/03/19 08:35 Dose: 2,400 mg Warfarin Sodium (Coumadin -) 10 mg PO DAILY@1800 [facility] 78 year old woman with history of ESRD on HD, DM, Afib on Coumadin who presented from home with diarrhea x 3 weeks. 1. Diarrhea secondary to suspected C. Diff Colitis 2. ESRD on HD 3. Chronic hypotension 4. Renal osteodystrophy Abx as per ID for management of C.dif colitis for HD today with minimal UF Will use albumin with HD for hypotension management Renal diet, 1.2L fluid restriction Will resume MWF schedule next week. Thank you Alon Page DO
[2019-05-03] MEDS: MIDODRINE HCL 5 MG TABLET PO SCH ×3 (09:48→18:18)
[2019-05-03] MEDS: metoPROLOL SUCCINATE 25 MG TAB.SR.24H (FP) PO SCH (09:48)
[2019-05-03] MEDS: SERTRALINE HCL 25 MG TABLET (FP) PO SCH (09:48)
[2019-05-03] MEDS: VITAMIN B COMP W-C 1 EA TABLET PO SCH (09:48)
--- NOTE | 2019-05-03 09:56 | CON.ID ---
Consult Consult Specialty:: infectious disease Referred by:: el Reason for Consultation:: diarrhea - History of Present Illness Chief Complaint: diarrhea History of Present Illness: 78 yo female with esrd on hd, s/p right foot TMA- prior osteomyelitis- treated last with vancomycin at hd- foot has healed (November 2018) now admitted with 3 week history of diarrhea no abdominal cramps no travel no sick contacts no fevers no vomiting no other recent antibiotics reports she was admitted at [facility] for 72 hours- about 2 weeks ago- originally thought to have a CVA but was found to have hypoglycemia and cdiff- discharged on po vanco and flagyl- reports diarrhea recurred after antibiotics were discontinued also notes a perianal ulcer that has occurred in this time frame and is painful - History Source History Provided By: Patient Limitations to Obtaining History: No Limitations - Past Medical History Cardio/Vascular: Yes: AFIB, CAD, CHF, HTN, Hyperlipdemia Renal/: Yes: Renal Failure, Hemodialysis Infectious Disease: Yes: MRSA, Other (osteomyelitis) Endocrine: Yes: Diabetes Mellitus - Past Surgical History Past Surgical History: Yes: Hernia Repair, Appendectomy, AV Fistula/Graft, Cholecystectomy Additional Surgical History: right TMA - Alcohol/Substance Use Hx Alcohol Use: No History of Substance Use: reports: None - Smoking History Smoking history: Never smoked Have you smoked in the past 12 months: No - Social History Usual Living Arrangement: With Child ADL: Independent Place of : [facility] History of Recent Travel: No Home Medications - Allergies Allergies/Adverse Reactions: Allergies Allergy/AdvReac Type Severity Reaction Status Date / Time Penicillins Allergy Swelling Verified 05/02/19 18:42 - Home Medications Home Medications: Ambulatory Orders Metoprolol Succinate [Toprol XL -] 25 mg PO DAILY 08/20/18 Sertraline HCl [Zoloft -] 25 mg PO DAILY 08/20/18 Sevelamer Carbonate [Renvela -] 2,400 mg PO ASDIR 08/20/18 Vitamin B Comp W-C [Nephro-Mahi -] 1 tablet PO DAILY tablet 09/11/18 Glimepiride [Amaryl -] 4 mg PO DAILY 11/11/18 Becaplermin [Regranex] 15 gm TP DAILY #15 gel..gram. 11/17/18 Acetaminophen [Tylenol .Regular Strength -] 650 mg PO Q6H PRN tablet 11/20/18 Atorvastatin Ca [Lipitor] 40 mg PO HS tablet 11/20/18 Midodrine HCl [Proamatine -] 5 mg PO TID-MID tablet 11/20/18 Warfarin Na [Coumadin -] 10 mg PO DAILY@1800 tablet 11/20/18 Insulin Glargine,Hum.rec.anlog [Lantus Solostar PEN (NF)] 32 units SQ BID Family Medical History Family History: Unremarkable Review of Systems - Review of Systems Constitutional: reports: No Symptoms. denies: Chills, Diaphoresis, Fever, Lethargy Eyes: reports: No Symptoms HENT: reports: No Symptoms Neck: reports: No Symptoms Cardiovascular: reports: No Symptoms. denies: Chest Pain Respiratory: reports: No Symptoms. denies: Cough, SOB Gastrointestinal: reports: Diarrhea. denies: Vomiting Genitourinary: reports: No Symptoms Physical Exam Vital Signs: Vital Signs Temperature 97.3 F L 05/03/19 04:25 Pulse Rate 73 05/03/19 04:25 Respiratory Rate 18 05/03/19 04:25 Blood Pressure 102/37 L 05/03/19 04:25 O2 Sat by Pulse Oximetry (%) 98 05/03/19 04:25 Constitutional: Yes: Well Nourished, No Distress, Calm Eyes: Yes: Conjunctiva Clear, EOM Intact HENT: Yes: Atraumatic, Normocephalic Neck: Yes: Supple Cardiovascular: Yes: Regular Rate and Rhythm Respiratory: Yes: Regular, CTA Bilaterally Gastrointestinal: Yes: Normal Bowel Sounds, Soft. No: Tenderness ...Rectal Exam: Yes: Deferred, Other (2 cm round shallow perianal ulcer) Extremities: Yes: WNL Edema: No Neurological: Yes: Alert, Oriented Psychiatric: Yes: Alert, Oriented Labs: CBC, BMP 05/02/19 21:30 05/02/19 21:30 cdiff antigen and toxin positive Imaging - Results Chest X-ray: Report Reviewed, Image Reviewed Problem List - Problems (1) Clostridium difficile colitis Code(s): A04.72 - ENTEROCOLITIS D/T CLOSTRIDIUM DIFFICILE, NOT SPCF RECUR (2) ESRD (end stage renal disease) Code(s): N18.6 - END STAGE RENAL DISEASE Assessment/Plan contact isolation po vancomycin dialysis per renal will likely need vancomycin taper as outpt for cdiff
[2019-05-03] MEDS ORDERED: PATIENT'S OWN MEDICATION (NON-FORMULARY) (Becaplermin [Regranex] 15 GM) TP SCH (10:00)
--- NOTE | 2019-05-03 10:15 | PN ---
Progress Note, Physician - Current Medication List Current Medications: Active Medications Acetaminophen (Tylenol -) 650 mg PO Q6H PRN PRN Reason: PAIN LEVEL 1-5 Albumin Human (Albumin Human 25%) 12.5 gm IVPB Q30M [facility] Atorvastatin Calcium (Lipitor -) 40 mg PO HS [facility] Sodium Chloride (Normal Saline -) 250 mls @ 3,000 mls/hr IV PRN PRN PRN Reason: Hypotension during Dialysis Stop: 05/04/19 09:36 Metoprolol Succinate (Toprol Xl -) 25 mg PO DAILY [facility] Last Admin: 05/03/19 09:48 Dose: Not Given Metronidazole (Flagyl -) 500 mg PO TID [facility] Last Admin: 05/03/19 06:43 Dose: 500 mg Midodrine (Proamatine -) 5 mg PO TID-MID [facility] Last Admin: 05/03/19 09:48 Dose: Not Given Multivit/Ca Carb/B Cmplx/FA/Prenat (Nephro-Mahi -) 1 tablet PO DAILY [facility] Last Admin: 05/03/19 09:48 Dose: 1 tablet Non-Formulary Medication (Becaplermin [Regranex]) 15 gm TP DAILY [facility] Sertraline HCl (Zoloft -) 25 mg PO DAILY [facility] Last Admin: 05/03/19 09:48 Dose: 25 mg Sevelamer Carbonate (Renvela -) 2,400 mg PO TIDCM [facility] Last Admin: 05/03/19 08:35 Dose: 2,400 mg Warfarin Sodium (Coumadin -) 10 mg PO DAILY@1800 [facility] - Objective Vital Signs: Vital Signs Temperature 97.3 F L 05/03/19 04:25 Pulse Rate 73 05/03/19 04:25 Respiratory Rate 18 05/03/19 04:25 Blood Pressure 102/37 L 05/03/19 04:25 O2 Sat by Pulse Oximetry (%) 98 05/03/19 04:25 Cardiovascular: Yes: S1, S2 Respiratory: Yes: Regular, CTA Bilaterally Gastrointestinal: Yes: Normal Bowel Sounds, Soft Labs: CBC, BMP 05/02/19 21:30 05/02/19 21:30 Problem List - Problems (1) Colitis Assessment/Plan: - follow up stool culture - follow up C-diff antigen - occult blood negative - given Flagyl x1 - will continue with flagyl po - follow up ID in AM Code(s): K52.9 - NONINFECTIVE GASTROENTERITIS AND COLITIS, UNSPECIFIED (2) ESRD (end stage renal disease) Assessment/Plan: - Will have dialysis tomorrow - Continue with routine dialysis MWF - Monitor fistula site - Sevelamer Carbonate 2,400 mg PO TID - Vitamin B Comp W-C 1 tablet PO DAILY - Follow up nephro Code(s): N18.6 - END STAGE RENAL DISEASE (3) Lactic acidosis Code(s): E87.2 - ACIDOSIS (4) Anemia Code(s): D64.9 - ANEMIA, UNSPECIFIED Qualifiers: Anemia type: other cause Other causes of anemia: chronic disease, kidney (5) HTN (hypertension) Assessment/Plan: -Hypo -Midodrine HCl 5 mg PO TID-MID -Monitor BP closely Code(s): I10 - ESSENTIAL (PRIMARY) HYPERTENSION Qualifiers: Hypertension type: essential hypertension Qualified Code(s): I10 - Essential (primary) hypertension (6) Atrial fibrillation Assessment/Plan: -Metoprolol Succinate 25 mg PO DAILY -Warfarin Na 10 mg PO DAILY -Monitor HR, follow up PT/INR Code(s): I48.91 - UNSPECIFIED ATRIAL FIBRILLATION Qualifiers: Atrial fibrillation type: chronic (7) Diabetes Assessment/Plan: -hold Amaryl -monitor BID AC without coverage for now Code(s): E11.9 - TYPE 2 DIABETES MELLITUS WITHOUT COMPLICATIONS Qualifiers: Diabetes mellitus type: type 2
[2019-05-03] MEDS: VANCOMYCIN 250 MG/5 ML ORAL SOLUTION PO SCH ×2 (13:00→20:13)
[2019-05-03] MEDS ORDERED: SODIUM CHLORIDE 250 ML IV PRN (13:32)
[2019-05-03] MEDS ORDERED: ALBUMIN HUMAN 25% 12.5 GM/50 ML VIAL IVPB SCH (13:45)
[2019-05-03 14:45] LABS: BASO % 0.2 % (0-2.0); EOS % 0.1 % (0-4.5); HEMATOCRIT 33.4 % (32.4-45.2); LYMPH % 18.6 % (8-40); MCH 28.5 pg (25.7-33.7); MEAN CELL VOLUME 86.5 fl (80-96); MEAN PLT VOLUME 9.8 fl (7.5-11.1); MONO % 13.9 % (3.8-10.2); NEUT % 67.2 % (42.8-82.8); PLATELET COUNT 237 K/MM3 (134-434); RBC 3.85 M/mm3 (3.60-5.2); WHITE BLOOD COUNT 8.6 K/mm3 (4.0-10.0)
[2019-05-03 15:08] LABS: BLOOD UREA NITROGEN 75.5 mg/dL (7-18); POTASSIUM 4.7 mmol/L (3.5-5.1)
[2019-05-03] MEDS: ALBUMIN HUMAN 25% 12.5 GM/50 ML VIAL IVPB SCH ×3 (16:40→16:43)
[2019-05-03] MEDS ORDERED: WARFARIN NA 10 MG TABLET (FP) PO SCH (18:00)
[2019-05-03 18:06] VITALS: BMI 34.9
--- NOTE | 2019-05-03 20:45 | CONSULT ---
Consult Consult Specialty:: Endocrine Referred by:: dr.annabi andrade Reason for Consultation:: DM T 2 - History of Present Illness Chief Complaint: diarhea weakness low blood sugars History of Present Illness: 78 year old female with PMHx of DMT2, ESRD on HD (MWF), HLD, HTN, and A-fib ( on coumadin ) admitted for persistant diarrhea. Patient reports she has been having intermittent diarrhea for the past few weeks that seemed to get better before worsening a few days ago. Diarrhea is loose, watery, and foul smelling and notes seeing blood when she wipes. According to patient she was recently treated with flagyl and vancomycin PO for Colitis ? C-diff. Patient denies chest pain fever cough vomfiting. - Past Medical History Cardio/Vascular: Yes: AFIB, CAD, CHF, HTN, Hyperlipdemia Renal/: Yes: Renal Failure, Hemodialysis Infectious Disease: Yes: MRSA, Other (osteomyelitis) Endocrine: Yes: Diabetes Mellitus Additional Medical History: Right superficial breast mass which she noted for the last 2 weeks and has enlarged in size. Minimal drainage has been noted. - Past Surgical History Past Surgical History: Yes: Hernia Repair, Appendectomy, AV Fistula/Graft, Cholecystectomy Additional Surgical History: right TMA - Alcohol/Substance Use Hx Alcohol Use: No History of Substance Use: reports: None - Smoking History Smoking history: Never smoked Have you smoked in the past 12 months: No - Social History Usual Living Arrangement: With Child ADL: Independent History of Recent Travel: No Home Medications - Allergies Allergies/Adverse Reactions: Allergies Allergy/AdvReac Type Severity Reaction Status Date / Time Penicillins Allergy Swelling Verified 05/02/19 18:42 - Home Medications Home Medications: Ambulatory Orders Metoprolol Succinate [Toprol XL -] 25 mg PO DAILY 08/20/18 Sertraline HCl [Zoloft -] 25 mg PO DAILY 08/20/18 Sevelamer Carbonate [Renvela -] 2,400 mg PO ASDIR 08/20/18 Vitamin B Comp W-C [Nephro-Mahi -] 1 tablet PO DAILY tablet 09/11/18 Glimepiride [Amaryl -] 4 mg PO DAILY 11/11/18 Becaplermin [Regranex] 15 gm TP DAILY #15 gel..gram. 11/17/18 Acetaminophen [Tylenol .Regular Strength -] 650 mg PO Q6H PRN tablet 11/20/18 Atorvastatin Ca [Lipitor] 40 mg PO HS tablet 11/20/18 Midodrine HCl [Proamatine -] 5 mg PO TID-MID tablet 11/20/18 Warfarin Na [Coumadin -] 10 mg PO DAILY@1800 tablet 11/20/18 Insulin Glargine,Hum.rec.anlog [Lantus Solostar PEN (NF)] 32 units SQ BID Review of Systems - Review of Systems Constitutional: reports: Lethargy, Weakness Eyes: reports: No Symptoms HENT: reports: No Symptoms Neck: reports: No Symptoms Cardiovascular: reports: No Symptoms Respiratory: reports: Exercise Intolerance Gastrointestinal: reports: Bloating, Nausea Genitourinary: reports: No Symptoms Breasts: reports: No Symptoms Reported Musculoskeletal: reports: Muscle Weakness Physical Exam Vital Signs: Vital Signs Temperature 97.8 F 05/03/19 17:44 Pulse Rate 89 05/03/19 17:44 Respiratory Rate 18 05/03/19 17:44 Blood Pressure 128/66 05/03/19 17:44 O2 Sat by Pulse Oximetry (%) 98 05/03/19 17:44 Constitutional: Yes: Anxious Eyes: Yes: EOM Intact HENT: Yes: Normocephalic Neck: Yes: Trachea Midline Cardiovascular: Yes: Regular Rate and Rhythm Respiratory: Yes: CTA Bilaterally Gastrointestinal: Yes: Hyperactive Bowel Sounds ...Rectal Exam: Yes: Deferred Renal/: Yes: WNL Breast(s): Yes: WNL Musculoskeletal: Yes: Back Pain Edema: No Neurological: Yes: Alert, Oriented Labs: CBC, BMP 05/03/19 14:00 05/03/19 14:00 Problem List - Problems (1) Clostridium difficile colitis Code(s): A04.72 - ENTEROCOLITIS D/T CLOSTRIDIUM DIFFICILE, NOT SPCF RECUR (2) Lactic acidosis Code(s): E87.2 - ACIDOSIS (3) ASHD (arteriosclerotic heart disease) Code(s): I25.10 - ATHSCL HEART DISEASE OF [place] CORONARY ARTERY W/O ANG PCTRS (4) Acute electrocardiogram changes Code(s): R94.31 - ABNORMAL ELECTROCARDIOGRAM [ECG] [EKG] (5) Anemia Code(s): D64.9 - ANEMIA, UNSPECIFIED Qualifiers: Anemia type: other cause Other causes of anemia: chronic disease, kidney (6) Atrial fibrillation Code(s): I48.91 - UNSPECIFIED ATRIAL FIBRILLATION Qualifiers: Atrial fibrillation type: chronic Assessment/Plan Current Active Problems DMT2 esrd hypoglycemia Clostridium difficile colitis (Acute) Colitis (Acute) ESRD (end stage renal disease) (Acute) Lactic acidosis (Acute) Abnormal Lab Results 05/02/19 05/02/19 05/02/19 21:30 21:30 21:30 WBC 10.7 H RDW 17.8 H Monocytes % 13.2 H PT with INR Sodium 135 L Chloride 97 L BUN 73.9 H Creatinine 11.6 H* Random Glucose 50 L Lactic Acid 2.4 H* Calcium AST 12 L ALT 10 L Albumin 3.0 L Lipase 38 L 05/03/19 05/03/19 05/03/19 14:00 14:00 14:00 WBC RDW 18.0 H Monocytes % 13.9 H PT with INR 87.50 H Sodium 133 L Chloride 96 L BUN 75.5 H Creatinine 12.0 H* Random Glucose 126 H Lactic Acid Calcium 8.0 L AST ALT Albumin Lipase Laboratory Results - last 24 hr 05/02/19 05/02/19 05/02/19 21:30 21:30 21:30 WBC 10.7 H RBC 3.99 Hgb 11.4 Hct 34.7 D MCV 87.0 MCH 28.4 MCHC 32.7 RDW 17.8 H Plt Count 231 MPV 9.4 Absolute Neuts (auto) 7.7 Neutrophils % 71.3 Lymphocytes % 15.2 Monocytes % 13.2 H Eosinophils % 0.0 D Basophils % 0.3 Nucleated RBC % 0 PT with INR Sodium 135 L Potassium 5.0 Chloride 97 L Carbon Dioxide 24 Anion Gap No Result Required. BUN 73.9 H Creatinine 11.6 H* Est GFR (CKD-EPI)AfAm 3.27 Est GFR (CKD-EPI)NonAf 2.82 POC Glucometer Random Glucose 50 L Lactic Acid 2.4 H* Calcium 8.5 Total Bilirubin 0.3 AST 12 L ALT 10 L Alkaline Phosphatase 88 Total Protein 6.9 Albumin 3.0 L Lipase 38 L Stool Occult Blood 05/03/19 05/03/19 05/03/19 00:38 01:58 04:07 WBC RBC Hgb Hct MCV MCH MCHC RDW Plt Count MPV Absolute Neuts (auto) Neutrophils % Lymphocytes % Monocytes % Eosinophils % Basophils % Nucleated RBC % PT with INR Sodium Potassium Chloride Carbon Dioxide Anion Gap BUN Creatinine Est GFR (CKD-EPI)AfAm Est GFR (CKD-EPI)NonAf POC Glucometer 37 202 Random Glucose Lactic Acid Calcium Total Bilirubin AST ALT Alkaline Phosphatase Total Protein Albumin Lipase Stool Occult Blood Negative 05/03/19 05/03/19 05/03/19 06:00 14:00 14:00 WBC 8.6 RBC 3.85 Hgb 11.0 Hct 33.4 MCV 86.5 MCH 28.5 MCHC 33.0 RDW 18.0 H Plt Count 237 MPV 9.8 Absolute Neuts (auto) 5.8 Neutrophils % 67.2 Lymphocytes % 18.6 D Monocytes % 13.9 H Eosinophils % 0.1 D Basophils % 0.2 Nucleated RBC % 0 PT with INR Sodium 133 L Potassium 4.7 Chloride 96 L Carbon Dioxide 24 Anion Gap 13 BUN 75.5 H Creatinine 12.0 H* Est GFR (CKD-EPI)AfAm 3.14 Est GFR (CKD-EPI)NonAf 2.71 POC Glucometer Random Glucose 126 H Lactic Acid 0.7 Calcium 8.0 L Total Bilirubin AST ALT Alkaline Phosphatase Total Protein Albumin Lipase Stool Occult Blood 05/03/19 05/03/19 14:00 19:08 WBC RBC Hgb Hct MCV MCH MCHC RDW Plt Count MPV Absolute Neuts (auto) Neutrophils % Lymphocytes % Monocytes % Eosinophils % Basophils % Nucleated RBC % PT with INR 87.50 H Sodium Potassium Chloride Carbon Dioxide Anion Gap BUN Creatinine Est GFR (CKD-EPI)AfAm Est GFR (CKD-EPI)NonAf POC Glucometer 194 Random Glucose Lactic Acid Calcium Total Bilirubin AST ALT Alkaline Phosphatase Total Protein Albumin Lipase Stool Occult Blood plan: bgm qid novolog scale diet bland iv fluid hd check stool for culture
[2019-05-03] MEDS: ATORVASTATIN CA 40 MG TABLET (FP) PO SCH (21:35)
[2019-05-03 22:00] LABS: PROTHROMBIN TIME (PATIENT) 83.4 SEC (9.7-13.0)
[2019-05-03 22:09] LABS: INR 7.27 (0.83-1.09)
[2019-05-03] MEDS ORDERED: PHYTONADIONE 5 MG TABLET PO ONE (22:40)
[2019-05-04] MEDS: VANCOMYCIN 250 MG/5 ML ORAL SOLUTION PO SCH ×5 (01:07→23:39)
[2019-05-04] MEDS ORDERED: PT OWN MED DRAWER 7, Y5N ONE ×2 (02:17→11:20)
[2019-05-04 07:36] LABS: PROTHROMBIN TIME (PATIENT) 68.6 SEC (9.7-13.0)
[2019-05-04 07:58] LABS: INR 5.71 (0.83-1.09)
[2019-05-04 08:06] LABS: BLOOD UREA NITROGEN 50.2 mg/dL (7-18); CALCIUM 8.3 mg/dL (8.5-10.1); POTASSIUM 4.6 mmol/L (3.5-5.1)
[2019-05-04 08:18] LABS: CREATININE 9.6 mg/dL (0.55-1.3)
[2019-05-04] MEDS: SERTRALINE HCL 25 MG TABLET (FP) PO SCH (09:54)
[2019-05-04] MEDS: MIDODRINE HCL 5 MG TABLET PO SCH ×3 (09:54→17:50)
[2019-05-04] MEDS: metoPROLOL SUCCINATE 25 MG TAB.SR.24H (FP) PO SCH (09:54)
[2019-05-04] MEDS: VITAMIN B COMP W-C 1 EA TABLET PO SCH (09:54)
[2019-05-04] MEDS: SEVELAMER CARBONATE 800 MG TAB (FP) PO SCH ×3 (09:55→17:50)
--- NOTE | 2019-05-04 11:38 | PN ---
Progress Note, Physician - Current Medication List Current Medications: Active Medications Acetaminophen (Tylenol -) 650 mg PO Q6H PRN PRN Reason: PAIN LEVEL 1-5 Atorvastatin Calcium (Lipitor -) 40 mg PO HS [facility] Last Admin: 05/03/19 21:35 Dose: 40 mg Sodium Chloride (Normal Saline -) 250 mls @ 3,000 mls/hr IV PRN PRN PRN Reason: Hypotension during Dialysis Stop: 05/04/19 13:31 Metoprolol Succinate (Toprol Xl -) 25 mg PO DAILY [facility] Last Admin: 05/04/19 09:54 Dose: Not Given Midodrine (Proamatine -) 5 mg PO TID-MID [facility] Last Admin: 05/04/19 09:54 Dose: 5 mg Multivit/Ca Carb/B Cmplx/FA/Prenat (Nephro-Mahi -) 1 tablet PO DAILY [facility] Last Admin: 05/04/19 09:54 Dose: 1 tablet Non-Formulary Medication (Becaplermin [Regranex]) 15 gm TP DAILY [facility] Sertraline HCl (Zoloft -) 25 mg PO DAILY [facility] Last Admin: 05/04/19 09:54 Dose: 25 mg Sevelamer Carbonate (Renvela -) 2,400 mg PO TIDCM [facility] Last Admin: 05/04/19 09:55 Dose: 2,400 mg Vancomycin HCl (Vancomycin Oral Solution) 250 mg PO Q6HPO [facility] Last Admin: 05/04/19 05:56 Dose: 250 mg - Objective Vital Signs: Vital Signs Temperature 98.2 F 05/04/19 09:59 Pulse Rate 104 H 05/04/19 09:59 Respiratory Rate 18 05/04/19 09:59 Blood Pressure 95/50 L 05/04/19 09:59 O2 Sat by Pulse Oximetry (%) 97 05/03/19 21:00 Cardiovascular: Yes: S1, S2 Respiratory: Yes: Regular, CTA Bilaterally Gastrointestinal: Yes: Normal Bowel Sounds, Soft. No: Tenderness Edema: No Labs: CBC, BMP 05/03/19 14:00 05/04/19 06:40 INR, PTT INR 5.71 (0.83-1.09) H* 05/04/19 06:40 Problem List - Problems (1) Colitis Assessment/Plan: - follow up stool culture - C-diff antigen Positive Microbiology 05/03/19 00:38 Stool Salmonella/Shigella Culture - Final NO GROWTH OF SALMONELLA OR SHIGELLA SPECIES OBTAINED 05/03/19 00:38 Stool Yersinia Culture - Preliminary NO ENTERIC PATHOGENS, 24 HOURS, ON PRIMARY PLATES 05/03/19 00:38 Stool Vibrio Culture - Final NO GROWTH OF VIBRIO SPECIES OBTAINED 05/03/19 00:38 Stool Escherichia coli 0157 Culture - Final NO GROWTH OF E COLI 0157 OBTAINED 05/03/19 00:21 Stool Clostridioides difficile Antigen - Final--Positive 05/03/19 00:21 Stool Clostridioides difficile Toxin Assay - Final - occult blood negative - Orders 05/03/19 12:00 Vancomycin Oral Solution 250 mg PO Q6HPO - ID Noted Code(s): K52.9 - NONINFECTIVE GASTROENTERITIS AND COLITIS, UNSPECIFIED (2) ESRD (end stage renal disease) Assessment/Plan: - Will have dialysis tomorrow - Continue with routine dialysis MWF - Monitor fistula site - Sevelamer Carbonate 2,400 mg PO TID - Vitamin B Comp W-C 1 tablet PO DAILY - Follow up per nephro Code(s): N18.6 - END STAGE RENAL DISEASE (3) Lactic acidosis Code(s): E87.2 - ACIDOSIS (4) Anemia Code(s): D64.9 - ANEMIA, UNSPECIFIED Qualifiers: Anemia type: other cause Other causes of anemia: chronic disease, kidney (5) HTN (hypertension) Code(s): I10 - ESSENTIAL (PRIMARY) HYPERTENSION Qualifiers: Hypertension type: essential hypertension Qualified Code(s): I10 - Essential (primary) hypertension (6) Atrial fibrillation Code(s): I48.91 - UNSPECIFIED ATRIAL FIBRILLATION Qualifiers: Atrial fibrillation type: chronic (7) Diabetes Code(s): E11.9 - TYPE 2 DIABETES MELLITUS WITHOUT COMPLICATIONS Qualifiers: Diabetes mellitus type: type 2
[2019-05-04] MEDS ORDERED: SODIUM CHLORIDE 250 ML IV PRN (19:46)
[2019-05-04] MEDS: ATORVASTATIN CA 40 MG TABLET (FP) PO SCH (21:55)
[2019-05-05] MEDS: VANCOMYCIN 250 MG/5 ML ORAL SOLUTION PO SCH ×3 (05:34→17:33)
[2019-05-05] MEDS: SEVELAMER CARBONATE 800 MG TAB (FP) PO SCH ×3 (09:37→17:33)
--- NOTE | 2019-05-05 11:33 | EKG ---
Test Reason : Blood Pressure : / mmHG Vent. Rate : 075 BPM Atrial Rate : 077 BPM P-R Int : 000 ms QRS Dur : 128 ms QT Int : 446 ms P-R-T Axes : 000 -48 104 degrees QTc Int : 498 ms ATRIAL FIBRILLATION LEFT AXIS DEVIATION NON-SPECIFIC INTRA-VENTRICULAR CONDUCTION BLOCK NONSPECIFIC T WAVE ABNORMALITY ABNORMAL ECG WHEN COMPARED WITH ECG OF 11-NOV-2018 10:30, T WAVE VARIATION Confirmed by LINDSAY ESPINOZA, ESTIVEN ([id number]) on 05/05/2019 11:33:24 AM Referred By: Confirmed By:ESTIVEN MONTOYA MD
[2019-05-05 11:46] LABS: HEMATOCRIT 33.3 % (32.4-45.2); HEMOGLOBIN 10.8 GM/dL (10.7-15.3); MCH 28.4 pg (25.7-33.7); MCHC 32.4 g/dl (32.0-36.0); MEAN CELL VOLUME 87.4 fl (80-96); MEAN PLT VOLUME 9.5 fl (7.5-11.1); PLATELET COUNT 221 K/MM3 (134-434); RBC 3.81 M/mm3 (3.60-5.2); RDW 17.3 % (11.6-15.6); WHITE BLOOD COUNT 5.9 K/mm3 (4.0-10.0)
--- NOTE | 2019-05-05 11:48 | PN ---
Progress Note, Physician Chief Complaint: stephanie tgetthing HD syas her diarrhea improve d no loose bm today so far to loose bm yesterday on contact isolation for c diff - Current Medication List Current Medications: Active Medications Acetaminophen (Tylenol -) 650 mg PO Q6H PRN PRN Reason: PAIN LEVEL 1-5 Atorvastatin Calcium (Lipitor -) 40 mg PO HS [facility] Last Admin: 05/04/19 21:55 Dose: 40 mg Sodium Chloride (Normal Saline -) 250 mls @ 3,000 mls/hr IV PRN PRN PRN Reason: Hypotension during Dialysis Stop: 05/05/19 19:46 Metoprolol Succinate (Toprol Xl -) 25 mg PO DAILY [facility] Last Admin: 05/04/19 09:54 Dose: Not Given Midodrine (Proamatine -) 5 mg PO TID-MID [facility] Last Admin: 05/04/19 17:50 Dose: 5 mg Multivit/Ca Carb/B Cmplx/FA/Prenat (Nephro-Mahi -) 1 tablet PO DAILY [facility] Last Admin: 05/04/19 09:54 Dose: 1 tablet Non-Formulary Medication (Becaplermin [Regranex]) 15 gm TP DAILY [facility] Sertraline HCl (Zoloft -) 25 mg PO DAILY [facility] Last Admin: 05/04/19 09:54 Dose: 25 mg Sevelamer Carbonate (Renvela -) 2,400 mg PO TIDCM [facility] Last Admin: 05/05/19 09:37 Dose: Not Given Vancomycin HCl (Vancomycin Oral Solution) 250 mg PO Q6HPO [facility] Last Admin: 05/05/19 05:34 Dose: 250 mg - Objective Vital Signs: Vital Signs Temperature 98.5 F 05/05/19 06:00 Pulse Rate 95 H 05/05/19 11:40 Respiratory Rate 18 05/05/19 11:40 Blood Pressure 98/66 05/05/19 11:40 O2 Sat by Pulse Oximetry (%) 94 L 05/04/19 21:00 Constitutional: Yes: Calm HENT: Yes: Other Neck: Yes: Lymphadenopathy, Other Cardiovascular: Yes: Regular Rate and Rhythm, S1, S2 Respiratory: Yes: CTA Bilaterally Gastrointestinal: Yes: Normal Bowel Sounds, Soft Edema: No Neurological: Yes: Alert, Oriented Labs: INR, PTT INR 5.71 (0.83-1.09) H* 05/04/19 06:40 Problem List - Problems (1) Clostridium difficile colitis Assessment/Plan: vancomycin oral solution Code(s): A04.72 - ENTEROCOLITIS D/T CLOSTRIDIUM DIFFICILE, NOT SPCF RECUR (2) ESRD (end stage renal disease) Assessment/Plan: HD per renal sevelamer Code(s): N18.6 - END STAGE RENAL DISEASE (3) Atrial fibrillation Assessment/Plan: on metoprolol couamdin on [facility] bc of supratherapeutic INR dily inr check Code(s): I48.91 - UNSPECIFIED ATRIAL FIBRILLATION Qualifiers: Atrial fibrillation type: chronic
[2019-05-05 12:30] LABS: BLOOD UREA NITROGEN 65.7 mg/dL (7-18); CALCIUM 8.4 mg/dL (8.5-10.1); PHOSPHOROUS 4.3 mg/dL (2.5-4.9); POTASSIUM 4.7 mmol/L (3.5-5.1)
[2019-05-05 12:52] LABS: CREATININE 11.3 mg/dL (0.55-1.3)
[2019-05-05] MEDS: MIDODRINE HCL 5 MG TABLET PO SCH ×3 (13:01→17:33)
[2019-05-05 13:13] LABS: INR 1.71 (0.83-1.09); PROTHROMBIN TIME (PATIENT) 20.3 SEC (9.7-13.0)
--- NOTE | 2019-05-05 13:44 | PN ---
Progress Note, Physician History of Present Illness: Pt seen and examined at bedside. She is awake and alert. She complains of diarrhea. - Current Medication List Current Medications: Active Medications Acetaminophen (Tylenol -) 650 mg PO Q6H PRN PRN Reason: PAIN LEVEL 1-5 Atorvastatin Calcium (Lipitor -) 40 mg PO HS [facility] Last Admin: 05/04/19 21:55 Dose: 40 mg Sodium Chloride (Normal Saline -) 250 mls @ 3,000 mls/hr IV PRN PRN PRN Reason: Hypotension during Dialysis Stop: 05/05/19 19:46 Metoprolol Succinate (Toprol Xl -) 25 mg PO DAILY [facility] Last Admin: 05/04/19 09:54 Dose: Not Given Midodrine (Proamatine -) 5 mg PO TID-MID [facility] Last Admin: 05/05/19 13:01 Dose: Not Given Multivit/Ca Carb/B Cmplx/FA/Prenat (Nephro-Mahi -) 1 tablet PO DAILY [facility] Last Admin: 05/04/19 09:54 Dose: 1 tablet Non-Formulary Medication (Becaplermin [Regranex]) 15 gm TP DAILY [facility] Sertraline HCl (Zoloft -) 25 mg PO DAILY [facility] Last Admin: 05/04/19 09:54 Dose: 25 mg Sevelamer Carbonate (Renvela -) 2,400 mg PO TIDCM [facility] Last Admin: 05/05/19 13:02 Dose: Not Given Vancomycin HCl (Vancomycin Oral Solution) 250 mg PO Q6HPO [facility] Last Admin: 05/05/19 05:34 Dose: 250 mg - Objective Vital Signs: Vital Signs Temperature 98.5 F 05/05/19 06:00 Pulse Rate 95 H 05/05/19 11:40 Respiratory Rate 18 05/05/19 11:40 Blood Pressure 98/66 05/05/19 11:40 O2 Sat by Pulse Oximetry (%) 94 L 05/04/19 21:00 Constitutional: Yes: Calm Eyes: Yes: Conjunctiva Clear HENT: Yes: Atraumatic Neck: Yes: Supple Cardiovascular: Yes: S1, S2 Respiratory: Yes: CTA Bilaterally Gastrointestinal: Yes: Soft Genitourinary: Yes: WNL Extremities: Yes: WNL Edema: LLE: Trace, RLE: Trace Neurological: Yes: Oriented Psychiatric: Yes: Oriented Labs: CBC, BMP 05/05/19 11:20 05/05/19 11:20 INR, PTT INR 1.71 (0.83-1.09) H 05/05/19 12:20 Assessment/Plan Current Medications Generic Name Dose Route Start Last Admin Trade Name Freq PRN Reason Stop Dose Admin Acetaminophen 650 mg 05/03/19 02:15 Tylenol - PO Q6H PRN PAIN LEVEL 1-5 Atorvastatin Calcium 40 mg 05/03/19 22:00 05/04/19 21:55 Lipitor - PO 40 mg HS [facility] Administration Sodium Chloride 250 mls @ 3,000 mls/hr 05/04/19 19:46 Normal Saline - IV 05/05/19 19:46 PRN PRN Hypotension during Dialysis Metoprolol Succinate 25 mg 05/03/19 10:00 05/04/19 09:54 Toprol Xl - PO Not Given DAILY [facility] Midodrine 5 mg 05/03/19 10:00 05/05/19 13:01 Proamatine - PO Not Given TID-MID [facility] Multivit/Ca Carb/B Cmplx/FA/Prenat 1 tablet 05/03/19 10:00 05/04/19 09:54 Nephro-Mahi - PO 1 tablet DAILY [facility] Administration Non-Formulary Medication 15 gm 05/03/19 10:00 Becaplermin [Regranex] TP DAILY [facility] Sertraline HCl 25 mg 05/03/19 10:00 05/04/19 09:54 Zoloft - PO 25 mg DAILY [facility] Administration Sevelamer Carbonate 2,400 mg 05/03/19 08:00 05/05/19 13:02 Renvela - PO Not Given TIDCM [facility] Vancomycin HCl 250 mg 05/03/19 12:00 05/05/19 05:34 Vancomycin Oral Solution PO 250 mg Q6HPO [facility] Administration 78 year old woman with history of ESRD on HD, DM, Afib on Coumadin who presented from home with diarrhea 1. Diarrhea secondary to suspected C. Diff Colitis 2. ESRD on HD 3. Chronic hypotension 4. Renal osteodystrophy 5. 6. a-fib Plan - HD today - abx per medical team - albumin with HD - monitor bp - pt on MWF schedule
[2019-05-05] MEDS: SERTRALINE HCL 25 MG TABLET (FP) PO SCH (16:00)
[2019-05-05] MEDS: VITAMIN B COMP W-C 1 EA TABLET PO SCH (16:01)
[2019-05-05] MEDS: metoPROLOL SUCCINATE 25 MG TAB.SR.24H (FP) PO SCH (16:01)
--- NOTE | 2019-05-05 17:26 | PN ---
Progress Note (short form) - Note Progress Note: feels well no diarrhea Vital Signs Period Temp Pulse Resp BP Sys/Prince Pulse Ox Last 24 Hr 97.6 F-98.6 F 70-107 16-20 91-146/38-76 95-98 cor-rrr lungs clear abd soft,nt CBC, BMP 05/05/19 11:20 05/05/19 11:20 Microbiology 05/03/19 00:38 Stool Salmonella/Shigella Culture - Final NO GROWTH OF SALMONELLA OR SHIGELLA SPECIES OBTAINED 05/03/19 00:38 Stool Campylobacter Culture - Final NO GROWTH OF CAMPYLOBACTER SPECIES OBTAINED 05/03/19 00:38 Stool Yersinia Culture - Final NO GROWTH OF YERSINIA SPECIES OBTAINED 05/03/19 00:38 Stool Vibrio Culture - Final NO GROWTH OF VIBRIO SPECIES OBTAINED 05/03/19 00:38 Stool Escherichia coli 0157 Culture - Final NO GROWTH OF E COLI 0157 OBTAINED 05/03/19 00:21 Stool Clostridioides difficile Antigen - Final 05/03/19 00:21 Stool Clostridioides difficile Toxin Assay - Final a/p recurrent cdiff colitis- doing well on po vancomycin, no objection to d/c home on oral vancomycin taper vancomycin 125 mg po qid for 14 days, then 125 mg po bid for 7 days, then 125 mg po daily for 7 days, then 125 mg po every 2 days for 2 weeks then vancomycin po every 3 days for 2 weeks esrd/hd Problem List - Problems (1) Clostridium difficile colitis Code(s): A04.72 - ENTEROCOLITIS D/T CLOSTRIDIUM DIFFICILE, NOT SPCF RECUR (2) ESRD (end stage renal disease) Code(s): N18.6 - END STAGE RENAL DISEASE
[2019-05-05] MEDS: ATORVASTATIN CA 40 MG TABLET (FP) PO SCH (21:48)
[2019-05-06] MEDS: VANCOMYCIN 250 MG/5 ML ORAL SOLUTION PO SCH ×3 (01:00→12:08)
[2019-05-06] MEDS: VITAMIN B COMP W-C 1 EA TABLET PO SCH (09:15)
[2019-05-06] MEDS: SEVELAMER CARBONATE 800 MG TAB (FP) PO SCH ×2 (09:15→12:08)
[2019-05-06] MEDS: MIDODRINE HCL 5 MG TABLET PO SCH (09:15)
[2019-05-06] MEDS: SERTRALINE HCL 25 MG TABLET (FP) PO SCH (09:15)
--- NOTE | 2019-05-06 09:32 | PN ---
Progress Note, Physician - Current Medication List Current Medications: Active Medications Acetaminophen (Tylenol -) 650 mg PO Q6H PRN PRN Reason: PAIN LEVEL 1-5 Last Admin: 05/05/19 20:39 Dose: 650 mg Atorvastatin Calcium (Lipitor -) 40 mg PO HS [facility] Last Admin: 05/05/19 21:48 Dose: 40 mg Sodium Chloride (Normal Saline -) 250 mls @ 3,000 mls/hr IV PRN PRN PRN Reason: Hypotension during Dialysis Stop: 05/05/19 19:46 Metoprolol Succinate (Toprol Xl -) 25 mg PO DAILY [facility] Last Admin: 05/05/19 16:01 Dose: 25 mg Midodrine (Proamatine -) 5 mg PO TID-MID [facility] Last Admin: 05/06/19 09:15 Dose: 5 mg Multivit/Ca Carb/B Cmplx/FA/Prenat (Nephro-Mahi -) 1 tablet PO DAILY [facility] Last Admin: 05/06/19 09:15 Dose: 1 tablet Sertraline HCl (Zoloft -) 25 mg PO DAILY [facility] Last Admin: 05/06/19 09:15 Dose: 25 mg Sevelamer Carbonate (Renvela -) 2,400 mg PO TIDCM [facility] Last Admin: 05/06/19 09:15 Dose: 2,400 mg Vancomycin HCl (Vancomycin Oral Solution) 250 mg PO Q6HPO [facility] Last Admin: 05/06/19 05:43 Dose: 250 mg - Objective Vital Signs: Vital Signs Temperature 98.6 F 05/06/19 06:00 Pulse Rate 86 05/06/19 06:00 Respiratory Rate 18 05/06/19 06:00 Blood Pressure 120/59 L 05/06/19 06:00 O2 Sat by Pulse Oximetry (%) 98 05/05/19 20:45 Labs: CBC, BMP 05/05/19 11:20 05/05/19 11:20 INR, PTT INR 1.71 (0.83-1.09) H 05/05/19 12:20 Problem List - Problems (1) Colitis Code(s): K52.9 - NONINFECTIVE GASTROENTERITIS AND COLITIS, UNSPECIFIED (2) ESRD (end stage renal disease) Code(s): N18.6 - END STAGE RENAL DISEASE (3) Lactic acidosis Code(s): E87.2 - ACIDOSIS (4) Anemia Code(s): D64.9 - ANEMIA, UNSPECIFIED Qualifiers: Anemia type: other cause Other causes of anemia: chronic disease, kidney (5) HTN (hypertension) Code(s): I10 - ESSENTIAL (PRIMARY) HYPERTENSION Qualifiers: Hypertension type: essential hypertension Qualified Code(s): I10 - Essential (primary) hypertension (6) Atrial fibrillation Code(s): I48.91 - UNSPECIFIED ATRIAL FIBRILLATION Qualifiers: Atrial fibrillation type: chronic (7) Diabetes Code(s): E11.9 - TYPE 2 DIABETES MELLITUS WITHOUT COMPLICATIONS Qualifiers: Diabetes mellitus type: type 2
--- NOTE | 2019-05-06 09:38 | DS ---
Physical Examination Vital Signs: Vital Signs Temperature 98.6 F 05/06/19 06:00 Pulse Rate 86 05/06/19 06:00 Respiratory Rate 18 05/06/19 06:00 Blood Pressure 120/59 L 05/06/19 06:00 O2 Sat by Pulse Oximetry (%) 98 05/05/19 20:45 Cardiovascular: Yes: S1, S2 Respiratory: Yes: Regular, CTA Bilaterally Gastrointestinal: Yes: Normal Bowel Sounds, Soft. No: Tenderness Labs: CBC, BMP 05/05/19 11:20 05/05/19 11:20 Discharge Summary Problems reviewed: Yes Reason For Visit: COLITIS, HYPOTENSION Current Active Problems Clostridium difficile colitis (Acute) Colitis (Acute) ESRD (end stage renal disease) (Acute) Lactic acidosis (Acute) Hospital Course: - Problems (1) Clostridium difficile colitis Assessment/Plan: vancomycin oral solution Code(s): A04.72 - ENTEROCOLITIS D/T CLOSTRIDIUM DIFFICILE, NOT SPCF RECUR (2) ESRD (end stage renal disease) Assessment/Plan: HD per renal sevelamer Code(s): N18.6 - END STAGE RENAL DISEASE (3) Atrial fibrillation Assessment/Plan: on metoprolol couamdin 5 mg Monitor inr check Code(s): I48.91 - UNSPECIFIED ATRIAL FIBRILLATION Qualifiers: Atrial fibrillation type: chronic Condition: Improved - Instructions Diet, Activity, Other Instructions: inr on and 3 time a week Referrals: Kishore David MD [Primary Care Provider] - 1 Week Disposition: HOME - Home Medications Comprehensive Discharge Medication List: Ambulatory Orders Metoprolol Succinate [Toprol XL -] 25 mg PO DAILY 08/20/18 Sertraline HCl [Zoloft -] 25 mg PO DAILY 08/20/18 Sevelamer Carbonate [Renvela -] 2,400 mg PO ASDIR 08/20/18 Vitamin B Comp W-C [Nephro-Mahi -] 1 tablet PO DAILY tablet 09/11/18 Glimepiride [Amaryl -] 4 mg PO DAILY 11/11/18 Acetaminophen [Tylenol .Regular Strength -] 650 mg PO Q6H PRN tablet 11/20/18 Atorvastatin Ca [Lipitor] 40 mg PO HS tablet 11/20/18 Midodrine HCl [Proamatine -] 5 mg PO TID-MID tablet 11/20/18 Insulin Glargine,Hum.rec.anlog [Lantus Solostar PEN -] 32 units SQ BID 05/03/19 Becaplermin [Regranex] 15 gm TP DAILY #15 gel..gram. 05/06/19 Vancomycin HCl 125 mg PO ASDIR #88 capsule 05/06/19 Warfarin Na [Coumadin] 5 mg PO DAILY@1800 #30 tablet 05/06/19
[2019-05-06] MEDS: metoPROLOL SUCCINATE 25 MG TAB.SR.24H (FP) PO SCH (11:26)
[2019-05-06] MEDS ORDERED: PT OWN MED DRAWER 7, Y5N ONE (12:04)
[2019-05-06 13:53] VITALS: BP 106/52; PULSE 74; TEMP 97.9
== END 2019-05-06 14:24 | disposition home or self-care (01) | DRG 371 ==
LOC: JER 18:21 → JERBED 23:11 → J4S 05-03 17:37
PROVIDERS: ADMIT Internal Medicine; ATTEND Family Medicine
PROC: 5A1D70Z Performance of Urinary Filtration, Intermittent, Less than 6 Hours Per Day (ICD-10-PCS; principal; 2019-05-05)
DX: A04.72 Enterocolitis due to Clostridium difficile, not specified as recurrent (principal); N18.6 End stage renal disease; I13.2 Hypertensive heart and chronic kidney disease with heart failure and with stage 5 chronic kidney disease, or end stage renal disease; E87.2 Acidosis; E11.22 Type 2 diabetes mellitus with diabetic chronic kidney disease; I50.9 Heart failure, unspecified; Z99.2 Dependence on renal dialysis; E87.5 Hyperkalemia; F32.9 Major depressive disorder, single episode, unspecified; I48.91 Unspecified atrial fibrillation; I95.9 Hypotension, unspecified; N25.0 Renal osteodystrophy; D63.1 Anemia in chronic kidney disease; E78.5 Hyperlipidemia, unspecified; E66.9 Obesity, unspecified; Z68.34 Body mass index [BMI] 34.0-34.9, adult
CPT/HCPCS: 36415; 71045-TC-FY; 80048; 80053; 82272; 82962; 83605; 83690; 84100; 85025; 85027; 85610; 86803; 87045; 87046; 87324; 87340; 87449; 93005; 93010; 99285-25; J7030; P9047

== ENCOUNTER 2020-12-09 17:53 | Inpatient (IN) | payer OTHER, MEDICARE ==
[2020-12-09] MEDS ORDERED: oxyCODONE HCL 5 MG TABLET PO ONE ×2 (20:37→22:28)
[2020-12-09] MEDS ORDERED: oxyCODONE HCL 5 MG TABLET ONE ×2 (20:46→22:31)
[2020-12-09 23:26] LABS: BASO % 0.6 % (0-2.0); EOS % 0.1 % (0-4.5); HEMATOCRIT 28.2 % (32.4-45.2); HEMOGLOBIN 9.1 GM/dL (10.7-15.3); LYMPH % 11.5 % (8-40); MCH 29.7 pg (25.7-33.7); MCHC 32.3 g/dl (32.0-36.0); MEAN CELL VOLUME 92.2 fl (80-96); MEAN PLT VOLUME 8.6 fl (7.5-11.1); MONO % 12.6 % (3.8-10.2); NEUT % 75.2 % (42.8-82.8); PLATELET COUNT 226 10^3/uL (134-434); RBC 3.06 M/mm3 (3.60-5.2); RDW 15.3 % (11.6-15.6); WHITE BLOOD COUNT 14.2 K/mm3 (4.0-10.0)
[2020-12-09 23:27] LABS: INR 2.1 (0.83-1.09); PROTHROMBIN TIME (PATIENT) 24.9 SEC (9.7-13.0)
[2020-12-09 23:29] LABS: ACTIVATED PTT 33.8 SECONDS (25.2-36.5)
[2020-12-09 23:39] LABS: CHLORIDE 98 mmol/L (98-107); SODIUM 135 mmol/L (136-145)
[2020-12-09 23:41] LABS: CALCIUM 8.9 mg/dL (8.5-10.1)
[2020-12-09 23:42] LABS: ALBUMIN 2.6 g/dl (3.4-5.0); BLOOD UREA NITROGEN 68.3 mg/dL (7-18); CO2 28 mmol/L (21-32); GLUCOSE,RANDOM 52 mg/dL (74-106)
[2020-12-09 23:45] LABS: SGOT/AST 41 U/L (15-37); SGPT/ALT 13 U/L (13-61)
[2020-12-09 23:46] LABS: BILIRUBIN,TOTAL 0.4 mg/dL (0.2-1); TOT PROT 6.7 g/dl (6.4-8.2)
[2020-12-09 23:48] LABS: ALK PHOS 79 U/L (45-117)
[2020-12-09 23:51] LABS: ANION GAP 10 MMOL/L (8-16); CREATININE 10.4 mg/dL (0.55-1.3)
[2020-12-10] MEDS ORDERED: CEFEPIME HCL/D5W 1 GM/50 ML BAG IVPB ONE ×2 (00:49→01:07)
[2020-12-10] MEDS ORDERED: VANCOMYCIN 1 GM PREMIX - 1 GM/200 ML BAG IVPB ONE (01:03)
[2020-12-10 01:55] LABS: ALBUMIN 2.6 g/dl (3.4-5.0); ALK PHOS 75 U/L (45-117); ANION GAP 12 MMOL/L (8-16); BILIRUBIN,TOTAL 0.3 mg/dL (0.2-1); BLOOD UREA NITROGEN 72.9 mg/dL (7-18); CALCIUM 8.8 mg/dL (8.5-10.1); CHLORIDE 97 mmol/L (98-107); CO2 28 mmol/L (21-32); CREATININE 10.5 mg/dL (0.55-1.3); GLUCOSE,RANDOM 54 mg/dL (74-106); SGOT/AST 15 U/L (15-37); SGPT/ALT 11 U/L (13-61); SODIUM 137 mmol/L (136-145); TOT PROT 6.4 g/dl (6.4-8.2)
[2020-12-10] MEDS ORDERED: VANCOMYCIN 1 GRAM (PRE-DOCKED) 1,000 MG/250 ML BAG IVPB ONE (02:25)
[2020-12-10] MEDS ORDERED: MORPHINE SULFATE 2 MG/ML VIAL IVPUSH ONE (03:22)
[2020-12-10 08:26] LABS: BASO % 0.2 % (0-2.0); EOS % 0.2 % (0-4.5); HEMATOCRIT 29.2 % (32.4-45.2); HEMOGLOBIN 9.4 GM/dL (10.7-15.3); LYMPH % 12.3 % (8-40); MEAN CELL VOLUME 93.6 fl (80-96); MEAN PLT VOLUME 8.7 fl (7.5-11.1); MONO % 13.7 % (3.8-10.2); NEUT % 73.6 % (42.8-82.8); PLATELET COUNT 245 10^3/uL (134-434); RBC 3.12 M/mm3 (3.60-5.2); RDW 15.3 % (11.6-15.6); WHITE BLOOD COUNT 14.9 K/mm3 (4.0-10.0)
[2020-12-10 08:41] LABS: CHLORIDE 96 mmol/L (98-107); SODIUM 137 mmol/L (136-145)
[2020-12-10 08:45] LABS: CALCIUM 9.1 mg/dL (8.5-10.1)
[2020-12-10 08:46] LABS: ALBUMIN 2.7 g/dl (3.4-5.0); ANION GAP 10 MMOL/L (8-16); CO2 30 mmol/L (21-32)
[2020-12-10 08:49] LABS: SGOT/AST 21 U/L (15-37); SGPT/ALT 11 U/L (13-61)
[2020-12-10 08:50] LABS: BILIRUBIN,TOTAL 0.4 mg/dL (0.2-1); TOT PROT 6.8 g/dl (6.4-8.2)
[2020-12-10 08:51] LABS: ALK PHOS 77 U/L (45-117)
[2020-12-10 09:00] LABS: CREATININE 10.8 mg/dL (0.55-1.3); GLUCOSE,RANDOM 43 mg/dL (74-106)
[2020-12-10] MEDS ORDERED: DEXTROSE 50%-WATER - 25 GM/50 ML VIAL IVPUSH ONE (09:14)
[2020-12-10] MEDS ORDERED: DEXTROSE 50%-WATER 25 GM/50 ML DISP.SYRIN ONE (09:14)
[2020-12-10] MEDS ORDERED: SODIUM CHLORIDE 250 ML IV PRN ×4 (09:56→14:50)
[2020-12-10] MEDS ORDERED: HEPARIN NA (PORCINE) 5,000 UNITS/ML 1ML VIAL SQ SCH (10:00)
[2020-12-10] MEDS ORDERED: BENZOIN/ALOE VERA/STORAX/TOLU 58 ML BOTTLE ONE (10:46)
[2020-12-10] MEDS ORDERED: HYDROGEN PEROXIDE 473 ML PO ONE (11:19)
[2020-12-10] MEDS ORDERED: ONDANSETRON 4 MG/2 ML VIAL IVPUSH PRN (11:23)
[2020-12-10] MEDS: oxyCODONE HCL 5 MG TABLET PO PRN ×3 (13:05→22:52)
[2020-12-10] MEDS: SODIUM CHLORIDE 1,000 ML IV SCH (13:06)
[2020-12-10] MEDS: MIDODRINE HCL 5 MG TABLET PO SCH ×2 (13:06→18:37)
[2020-12-10] MEDS ORDERED: EPOETIN ALFA-EPBX 10,000 UNIT/ML VIAL IVPUSH ONE (15:00)
[2020-12-10] MEDS: SEVELAMER CARBONATE 800 MG TAB (FP) PO SCH (18:37)
[2020-12-10] MEDS: HEPARIN NA (PORCINE) 5,000 UNITS/ML 1ML VIAL SQ SCH (22:06)
[2020-12-10] MEDS: INSULIN (LEVEMIR) 100 UNITS/ML UNITS SQ SCH (22:09)
[2020-12-10] MEDS: ATORVASTATIN CA 40 MG TABLET (FP) PO SCH (22:10)
[2020-12-11] MEDS: oxyCODONE HCL 5 MG TABLET PO PRN (06:06)
[2020-12-11] MEDS: GLIMEPIRIDE 4 MG TABLET PO SCH (06:07)
[2020-12-11] MEDS: INSULIN (LEVEMIR) 100 UNITS/ML UNITS SQ SCH ×2 (06:10→22:23)
[2020-12-11] MEDS ORDERED: oxyCODONE HCL 5 MG TABLET PO ONE (07:52)
[2020-12-11] MEDS ORDERED: metoPROLOL SUCCINATE 25 MG TAB.SR.24H (FP) PO SCH (10:00)
[2020-12-11] MEDS: SEVELAMER CARBONATE 800 MG TAB (FP) PO SCH ×3 (10:42→18:29)
[2020-12-11] MEDS ORDERED: CEFEPIME HCL 1 GM VIAL (RESTRICTED TO ID) ONE (11:36)
[2020-12-11] MEDS ORDERED: DEXTROSE 5%-WATER 100 ML IVPB ONE (11:37)
[2020-12-11] MEDS: MIDODRINE HCL 5 MG TABLET PO SCH ×3 (11:39→18:29)
[2020-12-11] MEDS: SODIUM ZIRCONIUM CYCLOSILICATE (LOKELMA) 5 GM PACKET PO SCH (11:40)
[2020-12-11] MEDS: SERTRALINE HCL 25 MG TABLET (FP) PO SCH (11:40)
[2020-12-11] MEDS: VITAMIN B COMP W-C 1 EA TABLET (NEPHRO-VITE) PO SCH (11:40)
[2020-12-11] MEDS: HEPARIN NA (PORCINE) 5,000 UNITS/ML 1ML VIAL SQ SCH ×2 (11:40→22:22)
[2020-12-11] MEDS ORDERED: PT OWN MED DRAWER 7, Y5N ONE (11:43)
[2020-12-11] MEDS: CEFEPIME 1 GM in DEXTROSE 5%-WATER 1 GM/100 ML BAG IVPB SCH (13:15)
[2020-12-11] MEDS: SODIUM CHLORIDE 1,000 ML IV SCH (13:16)
[2020-12-11] MEDS: morphine SULFATE 4 MG/ML VIAL IVPUSH PRN (13:17)
[2020-12-11] MEDS ORDERED: METOPROLOL TARTRATE 5 MG/5 ML VIAL IVPB PRN (14:15)
[2020-12-11] MEDS ORDERED: INSULIN (NOVOLOG) ASPART 100 UNITS/ML 10ML VIAL ONE (20:51)
[2020-12-11] MEDS: ATORVASTATIN CA 40 MG TABLET (FP) PO SCH (22:21)
[2020-12-12] MEDS: morphine SULFATE 4 MG/ML VIAL IVPUSH PRN ×3 (02:41→21:32)
[2020-12-12] MEDS: oxyCODONE HCL 5 MG TABLET PO PRN (06:09)
[2020-12-12] MEDS: INSULIN (LEVEMIR) 100 UNITS/ML UNITS SQ SCH ×2 (06:10→21:31)
[2020-12-12 07:34] LABS: CHLORIDE 100 mmol/L (98-107); SODIUM 139 mmol/L (136-145)
[2020-12-12 07:36] LABS: ANION GAP 8 MMOL/L (8-16); BLOOD UREA NITROGEN 60.2 mg/dL (7-18); CALCIUM 8.5 mg/dL (8.5-10.1); CO2 31 mmol/L (21-32)
[2020-12-12 07:37] LABS: GLUCOSE,RANDOM 71 mg/dL (74-106)
[2020-12-12 07:42] LABS: CREATININE 9.4 mg/dL (0.55-1.3)
[2020-12-12] MEDS ORDERED: DEXTROSE 5%-WATER 100 ML IVPB ONE (08:47)
[2020-12-12] MEDS ORDERED: CEFEPIME HCL 1 GM VIAL (RESTRICTED TO ID) ONE (08:47)
[2020-12-12] MEDS: GLIMEPIRIDE 4 MG TABLET PO SCH (08:51)
[2020-12-12] MEDS: CEFEPIME 1 GM in DEXTROSE 5%-WATER 1 GM/100 ML BAG IVPB SCH (08:59)
[2020-12-12] MEDS: HEPARIN NA (PORCINE) 5,000 UNITS/ML 1ML VIAL SQ SCH ×2 (09:00→21:29)
[2020-12-12] MEDS: SERTRALINE HCL 25 MG TABLET (FP) PO SCH (09:00)
[2020-12-12] MEDS: MIDODRINE HCL 5 MG TABLET PO SCH ×3 (09:00→16:59)
[2020-12-12] MEDS: SEVELAMER CARBONATE 800 MG TAB (FP) PO SCH ×3 (09:00→16:58)
[2020-12-12] MEDS: metoPROLOL SUCCINATE 25 MG TAB.SR.24H (FP) PO SCH (09:01)
[2020-12-12] MEDS: SODIUM ZIRCONIUM CYCLOSILICATE (LOKELMA) 5 GM PACKET PO SCH (09:01)
[2020-12-12] MEDS: VITAMIN B COMP W-C 1 EA TABLET (NEPHRO-VITE) PO SCH (09:01)
[2020-12-12] MEDS ORDERED: SODIUM CHLORIDE 250 ML IV PRN (13:16)
[2020-12-12] MEDS ORDERED: VANCOMYCIN 1 GRAM (PRE-DOCKED) 1,000 MG/250 ML BAG IVPB ONE (17:00)
[2020-12-12] MEDS: ATORVASTATIN CA 40 MG TABLET (FP) PO SCH (21:29)
[2020-12-13] MEDS: INSULIN (LEVEMIR) 100 UNITS/ML UNITS SQ SCH ×2 (06:30→21:23)
[2020-12-13] MEDS: GLIMEPIRIDE 4 MG TABLET PO SCH (06:30)
[2020-12-13] MEDS: morphine SULFATE 4 MG/ML VIAL IVPUSH PRN (06:33)
[2020-12-13] MEDS ORDERED: DOCUSATE SODIUM 100 MG CAPSULE (FP) PO PRN (08:20)
[2020-12-13] MEDS ORDERED: ALPRAZolam 0.25 MG TABLET PO PRN (08:20)
[2020-12-13] MEDS ORDERED: CEFEPIME HCL 1 GM VIAL (RESTRICTED TO ID) ONE (08:57)
[2020-12-13] MEDS ORDERED: DEXTROSE 5%-WATER 100 ML IVPB ONE (08:58)
[2020-12-13] MEDS: MIDODRINE HCL 5 MG TABLET PO SCH ×3 (09:33→17:13)
[2020-12-13] MEDS: SEVELAMER CARBONATE 800 MG TAB (FP) PO SCH ×3 (09:33→17:13)
[2020-12-13] MEDS: HEPARIN NA (PORCINE) 5,000 UNITS/ML 1ML VIAL SQ SCH ×2 (09:50→21:22)
[2020-12-13] MEDS: VITAMIN B COMP W-C 1 EA TABLET (NEPHRO-VITE) PO SCH (09:50)
[2020-12-13] MEDS: SERTRALINE HCL 25 MG TABLET (FP) PO SCH (09:50)
[2020-12-13] MEDS: CEFEPIME 1 GM in DEXTROSE 5%-WATER 1 GM/100 ML BAG IVPB SCH (09:51)
[2020-12-13] MEDS: SODIUM ZIRCONIUM CYCLOSILICATE (LOKELMA) 5 GM PACKET PO SCH (09:51)
[2020-12-13] MEDS ORDERED: EPOETIN ALFA-EPBX 10,000 UNIT/ML VIAL IVPUSH ONE (10:00)
[2020-12-13] MEDS: POLYETHYLENE GLYCOL (HEALTHYLAX) 3350 17 GM PACKET PO SCH (15:37)
[2020-12-13] MEDS: metoPROLOL SUCCINATE 25 MG TAB.SR.24H (FP) PO SCH ×2 (15:37→15:48)
[2020-12-13 19:55] LABS: HEMATOCRIT 25.5 % (32.4-45.2); HEMOGLOBIN 8.4 GM/dL (10.7-15.3); MCH 30.4 pg (25.7-33.7); MCHC 32.9 g/dl (32.0-36.0); MEAN CELL VOLUME 92.6 fl (80-96); MEAN PLT VOLUME 8.2 fl (7.5-11.1); PLATELET COUNT 245 10^3/uL (134-434); RBC 2.75 M/mm3 (3.60-5.2); RDW 15.3 % (11.6-15.6); WHITE BLOOD COUNT 8.6 K/mm3 (4.0-10.0)
[2020-12-13 20:14] LABS: BLOOD UREA NITROGEN 38.4 mg/dL (7-18)
[2020-12-13 20:15] LABS: CALCIUM 8.6 mg/dL (8.5-10.1)
[2020-12-13 20:18] LABS: CREATININE 6.7 mg/dL (0.55-1.3); PHOSPHOROUS 2.2 mg/dL (2.5-4.9)
[2020-12-13] MEDS: ATORVASTATIN CA 40 MG TABLET (FP) PO SCH (21:22)
[2020-12-14] MEDS: GLIMEPIRIDE 4 MG TABLET PO SCH (06:02)
[2020-12-14] MEDS: INSULIN (LEVEMIR) 100 UNITS/ML UNITS SQ SCH ×2 (06:02→22:59)
[2020-12-14] MEDS: SEVELAMER CARBONATE 800 MG TAB (FP) PO SCH ×3 (08:50→17:17)
[2020-12-14 09:19] LABS: HEMATOCRIT 26.6 % (32.4-45.2); HEMOGLOBIN 8.6 GM/dL (10.7-15.3); MCH 30.4 pg (25.7-33.7); MCHC 32.1 g/dl (32.0-36.0); MEAN CELL VOLUME 94.5 fl (80-96); MEAN PLT VOLUME 8.5 fl (7.5-11.1); PLATELET COUNT 238 10^3/uL (134-434); RBC 2.82 M/mm3 (3.60-5.2); RDW 15.2 % (11.6-15.6); WHITE BLOOD COUNT 8.4 K/mm3 (4.0-10.0)
[2020-12-14] MEDS ORDERED: DEXTROSE 5%-WATER 100 ML IVPB ONE (09:23)
[2020-12-14] MEDS ORDERED: CEFEPIME HCL 1 GM VIAL (RESTRICTED TO ID) ONE (09:23)
[2020-12-14] MEDS: metoPROLOL SUCCINATE 25 MG TAB.SR.24H (FP) PO SCH (09:32)
[2020-12-14] MEDS: SERTRALINE HCL 25 MG TABLET (FP) PO SCH (09:32)
[2020-12-14] MEDS: MIDODRINE HCL 5 MG TABLET PO SCH ×3 (09:32→17:17)
[2020-12-14] MEDS: VITAMIN B COMP W-C 1 EA TABLET (NEPHRO-VITE) PO SCH (09:32)
[2020-12-14] MEDS: HEPARIN NA (PORCINE) 5,000 UNITS/ML 1ML VIAL SQ SCH ×2 (09:32→22:59)
[2020-12-14] MEDS: CEFEPIME 1 GM in DEXTROSE 5%-WATER 1 GM/100 ML BAG IVPB SCH (09:33)
[2020-12-14] MEDS: SODIUM ZIRCONIUM CYCLOSILICATE (LOKELMA) 5 GM PACKET PO SCH (09:33)
[2020-12-14] MEDS: POLYETHYLENE GLYCOL (HEALTHYLAX) 3350 17 GM PACKET PO SCH (09:34)
[2020-12-14] MEDS ORDERED: VANCOMYCIN 1 GRAM (PRE-DOCKED) 1,000 MG/250 ML BAG IVPB ONE (10:00)
[2020-12-14 10:08] LABS: CALCIUM 8.9 mg/dL (8.5-10.1)
[2020-12-14 10:09] LABS: ALBUMIN 2.6 g/dl (3.4-5.0); BLOOD UREA NITROGEN 43.1 mg/dL (7-18)
[2020-12-14 10:11] LABS: CREATININE 7.4 mg/dL (0.55-1.3)
[2020-12-14 10:13] LABS: BILIRUBIN,TOTAL 0.3 mg/dL (0.2-1); TOT PROT 6.4 g/dl (6.4-8.2)
[2020-12-14] MEDS ORDERED: SODIUM CHLORIDE 250 ML IV PRN (12:59)
[2020-12-14] MEDS: ATORVASTATIN CA 40 MG TABLET (FP) PO SCH (22:57)
[2020-12-15] MEDS ORDERED: ACETAMINOPHEN 1000 MG/100 ML VIAL (NON FORMULARY) IVPB ONE (01:42)
[2020-12-15] MEDS: INSULIN (LEVEMIR) 100 UNITS/ML UNITS SQ SCH ×2 (07:51→22:59)
[2020-12-15] MEDS: GLIMEPIRIDE 4 MG TABLET PO SCH (08:29)
[2020-12-15] MEDS: SEVELAMER CARBONATE 800 MG TAB (FP) PO SCH ×4 (08:29→17:19)
[2020-12-15] MEDS ORDERED: CEFEPIME HCL 1 GM VIAL (RESTRICTED TO ID) ONE (09:41)
[2020-12-15] MEDS ORDERED: DEXTROSE 5%-WATER 100 ML IVPB ONE (09:41)
[2020-12-15] MEDS: HEPARIN NA (PORCINE) 5,000 UNITS/ML 1ML VIAL SQ SCH ×2 (09:49→22:52)
[2020-12-15] MEDS: CEFEPIME 1 GM in DEXTROSE 5%-WATER 1 GM/100 ML BAG IVPB SCH (09:49)
[2020-12-15] MEDS: VITAMIN B COMP W-C 1 EA TABLET (NEPHRO-VITE) PO SCH (09:50)
[2020-12-15] MEDS: SODIUM ZIRCONIUM CYCLOSILICATE (LOKELMA) 5 GM PACKET PO SCH (09:50)
[2020-12-15] MEDS: MIDODRINE HCL 5 MG TABLET PO SCH ×3 (09:50→18:22)
[2020-12-15] MEDS: POLYETHYLENE GLYCOL (HEALTHYLAX) 3350 17 GM PACKET PO SCH (09:50)
[2020-12-15] MEDS: metoPROLOL SUCCINATE 25 MG TAB.SR.24H (FP) PO SCH (09:50)
[2020-12-15] MEDS: SERTRALINE HCL 25 MG TABLET (FP) PO SCH (09:50)
[2020-12-15 11:35] LABS: HEMATOCRIT 25.6 % (32.4-45.2); HEMOGLOBIN 8.2 GM/dL (10.7-15.3); MCHC 32.1 g/dl (32.0-36.0); MEAN CELL VOLUME 93.5 fl (80-96); MEAN PLT VOLUME 8.5 fl (7.5-11.1); PLATELET COUNT 220 10^3/uL (134-434); RBC 2.74 M/mm3 (3.60-5.2); RDW 15.4 % (11.6-15.6); WHITE BLOOD COUNT 11.3 K/mm3 (4.0-10.0)
[2020-12-15 11:58] LABS: CHLORIDE 97 mmol/L (98-107); SODIUM 134 mmol/L (136-145)
[2020-12-15] MEDS ORDERED: EPOETIN ALFA-EPBX 20,000 UNIT/ML VIAL IVPUSH ONE (12:00)
[2020-12-15 12:01] LABS: ANION GAP 10 MMOL/L (8-16); CALCIUM 8.6 mg/dL (8.5-10.1); CO2 27 mmol/L (21-32); GLUCOSE,RANDOM 203 mg/dL (74-106); LIPASE 55 U/L (73-393)
[2020-12-15 12:02] LABS: ALBUMIN 2.5 g/dl (3.4-5.0)
[2020-12-15 12:04] LABS: PHOSPHOROUS 2.8 mg/dL (2.5-4.9); SGOT/AST 39 U/L (15-37); SGPT/ALT 34 U/L (13-61)
[2020-12-15 12:05] LABS: BILIRUBIN,TOTAL 0.3 mg/dL (0.2-1)
[2020-12-15 12:07] LABS: ALK PHOS 74 U/L (45-117); CREATININE 8.4 mg/dL (0.55-1.3)
[2020-12-15] MEDS: ATORVASTATIN CA 40 MG TABLET (FP) PO SCH (22:52)
[2020-12-16] MEDS: SEVELAMER CARBONATE 800 MG TAB (FP) PO SCH ×3 (08:37→18:31)
[2020-12-16] MEDS: GLIMEPIRIDE 4 MG TABLET PO SCH (09:00)
[2020-12-16] MEDS: INSULIN (LEVEMIR) 100 UNITS/ML UNITS SQ SCH ×2 (09:01→21:51)
[2020-12-16] MEDS ORDERED: ceFAZolin SODIUM 1 GM VIAL ONE (10:21)
[2020-12-16] MEDS ORDERED: DEXTROSE 5%-WATER - 50 ML IVPB ONE (10:21)
[2020-12-16] MEDS: VITAMIN B COMP W-C 1 EA TABLET (NEPHRO-VITE) PO SCH (10:26)
[2020-12-16] MEDS: MIDODRINE HCL 5 MG TABLET PO SCH ×3 (10:26→18:31)
[2020-12-16] MEDS: SERTRALINE HCL 25 MG TABLET (FP) PO SCH (10:26)
[2020-12-16] MEDS: SODIUM ZIRCONIUM CYCLOSILICATE (LOKELMA) 5 GM PACKET PO SCH (10:26)
[2020-12-16] MEDS: HEPARIN NA (PORCINE) 5,000 UNITS/ML 1ML VIAL SQ SCH ×2 (10:27→21:52)
[2020-12-16] MEDS: POLYETHYLENE GLYCOL (HEALTHYLAX) 3350 17 GM PACKET PO SCH (10:33)
[2020-12-16] MEDS: metoPROLOL SUCCINATE 25 MG TAB.SR.24H (FP) PO SCH (10:34)
[2020-12-16] MEDS: CEFAZOLIN 1 GM in DEXTROSE 5%-WATER - 1 GM/50 ML IVPB IVPB SCH (11:57)
[2020-12-16] MEDS ORDERED: SODIUM CHLORIDE 250 ML IV PRN (17:24)
[2020-12-16] MEDS: ATORVASTATIN CA 40 MG TABLET (FP) PO SCH (21:52)
[2020-12-17] MEDS: GLIMEPIRIDE 4 MG TABLET PO SCH (06:04)
[2020-12-17] MEDS: INSULIN (LEVEMIR) 100 UNITS/ML UNITS SQ SCH ×2 (06:04→21:48)
[2020-12-17] MEDS ORDERED: INSULIN (NOVOLOG) ASPART 100 UNITS/ML 10ML VIAL ONE (07:00)
[2020-12-17] MEDS ORDERED: INSULIN (LEVEMIR) 100 UNITS/ML UNITS SQ ONE (07:00)
[2020-12-17] MEDS ORDERED: levETIRAcetam 500 MG/5 ML INJECTION VIAL IVPB ONE (07:00)
[2020-12-17] MEDS ORDERED: EPOETIN ALFA-EPBX 20,000 UNIT/ML VIAL IVPUSH ONE (10:00)
[2020-12-17] MEDS: SEVELAMER CARBONATE 800 MG TAB (FP) PO SCH ×3 (10:48→17:45)
[2020-12-17] MEDS: MIDODRINE HCL 5 MG TABLET PO SCH ×3 (10:52→17:56)
[2020-12-17] MEDS: HEPARIN NA (PORCINE) 5,000 UNITS/ML 1ML VIAL SQ SCH ×2 (10:52→21:48)
[2020-12-17] MEDS: VITAMIN B COMP W-C 1 EA TABLET (NEPHRO-VITE) PO SCH (10:52)
[2020-12-17] MEDS: metoPROLOL SUCCINATE 25 MG TAB.SR.24H (FP) PO SCH (10:52)
[2020-12-17] MEDS: SODIUM ZIRCONIUM CYCLOSILICATE (LOKELMA) 5 GM PACKET PO SCH (10:52)
[2020-12-17] MEDS: POLYETHYLENE GLYCOL (HEALTHYLAX) 3350 17 GM PACKET PO SCH (10:52)
[2020-12-17] MEDS: SERTRALINE HCL 25 MG TABLET (FP) PO SCH (10:53)
[2020-12-17 11:09] LABS: HEMATOCRIT 26.2 % (32.4-45.2); HEMOGLOBIN 8.3 GM/dL (10.7-15.3); MCH 29.8 pg (25.7-33.7); MCHC 31.8 g/dl (32.0-36.0); MEAN CELL VOLUME 93.5 fl (80-96); MEAN PLT VOLUME 8.5 fl (7.5-11.1); PLATELET COUNT 217 10^3/uL (134-434); RDW 15.4 % (11.6-15.6); WHITE BLOOD COUNT 9.1 K/mm3 (4.0-10.0)
[2020-12-17 11:32] LABS: CHLORIDE 100 mmol/L (98-107); SODIUM 137 mmol/L (136-145)
[2020-12-17 11:37] LABS: CALCIUM 8.6 mg/dL (8.5-10.1)
[2020-12-17 11:38] LABS: ANION GAP 9 MMOL/L (8-16); CO2 28 mmol/L (21-32); GLUCOSE,RANDOM 149 mg/dL (74-106)
[2020-12-17 11:40] LABS: CREATININE 7.9 mg/dL (0.55-1.3)
[2020-12-17 14:02] VITALS: BMI 36.1
[2020-12-17] MEDS ORDERED: ceFAZolin SODIUM 1 GM VIAL ONE (17:46)
[2020-12-17] MEDS ORDERED: DEXTROSE 5%-WATER - 50 ML IVPB ONE (17:47)
[2020-12-17] MEDS: CEFAZOLIN 1 GM in DEXTROSE 5%-WATER - 1 GM/50 ML IVPB IVPB SCH (17:55)
[2020-12-17] MEDS: ACETAMINOPHEN 325 MG TABLET (FP) PO PRN (18:11)
[2020-12-17] MEDS: ATORVASTATIN CA 40 MG TABLET (FP) PO SCH (21:48)
[2020-12-18] MEDS ORDERED: PT OWN MED DRAWER 7, Y5N ONE (05:14)
[2020-12-18] MEDS: GLIMEPIRIDE 4 MG TABLET PO SCH (06:50)
[2020-12-18] MEDS ORDERED: DEXTROSE 50%-WATER - 25 GM/50 ML VIAL IVPUSH ONE (06:54)
[2020-12-18] MEDS: INSULIN (LEVEMIR) 100 UNITS/ML UNITS SQ SCH (06:54)
[2020-12-18] MEDS ORDERED: DEXTROSE 50%-WATER - 25 GM/50 ML VIAL ONE (07:00)
[2020-12-18 08:01] VITALS: PULSE 88; TEMP 98.8
[2020-12-18] MEDS ORDERED: ceFAZolin SODIUM 1 GM VIAL ONE (08:47)
[2020-12-18] MEDS ORDERED: DEXTROSE 5%-WATER - 50 ML IVPB ONE (08:47)
[2020-12-18] MEDS: ACETAMINOPHEN 325 MG TABLET (FP) PO PRN (08:49)
[2020-12-18] MEDS: SEVELAMER CARBONATE 800 MG TAB (FP) PO SCH (08:52)
[2020-12-18] MEDS: MIDODRINE HCL 5 MG TABLET PO SCH (09:04)
[2020-12-18] MEDS: metoPROLOL SUCCINATE 25 MG TAB.SR.24H (FP) PO SCH (09:04)
[2020-12-18] MEDS: SODIUM ZIRCONIUM CYCLOSILICATE (LOKELMA) 5 GM PACKET PO SCH (09:04)
[2020-12-18] MEDS: HEPARIN NA (PORCINE) 5,000 UNITS/ML 1ML VIAL SQ SCH (09:04)
[2020-12-18] MEDS: SERTRALINE HCL 25 MG TABLET (FP) PO SCH (09:04)
[2020-12-18] MEDS: VITAMIN B COMP W-C 1 EA TABLET (NEPHRO-VITE) PO SCH (09:04)
[2020-12-18] MEDS: POLYETHYLENE GLYCOL (HEALTHYLAX) 3350 17 GM PACKET PO SCH (09:04)
[2020-12-18] MEDS: CEFAZOLIN 1 GM in DEXTROSE 5%-WATER - 1 GM/50 ML IVPB IVPB SCH (09:05)
[2020-12-18 11:20] VITALS: BP 112/44
== END 2020-12-18 11:46 | disposition home health service (06) | DRG 602 ==
LOC: JER 17:53 → JERBED 12-10 03:13 → J7W 12-10 12:41
PROVIDERS: ADMIT Hospitalist; ATTEND Family Medicine
PROC: 0Y900ZZ Drainage of Right Buttock, Open Approach (ICD-10-PCS; principal; 2020-12-10 10:00)
PROC: 5A1D70Z Performance of Urinary Filtration, Intermittent, Less than 6 Hours Per Day (ICD-10-PCS; 2020-12-17)
DX: L02.31 Cutaneous abscess of buttock (principal); N18.6 End stage renal disease; I50.22 Chronic systolic (congestive) heart failure; I13.2 Hypertensive heart and chronic kidney disease with heart failure and with stage 5 chronic kidney disease, or end stage renal disease; E66.01 Morbid (severe) obesity due to excess calories; Z68.36 Body mass index [BMI] 36.0-36.9, adult; E87.5 Hyperkalemia; D72.829 Elevated white blood cell count, unspecified; E11.22 Type 2 diabetes mellitus with diabetic chronic kidney disease; D63.1 Anemia in chronic kidney disease; Z99.2 Dependence on renal dialysis; Z88.0 Allergy status to penicillin; I48.91 Unspecified atrial fibrillation; E78.5 Hyperlipidemia, unspecified
CPT/HCPCS: 36415; 72192-TC; 74018-TC-FY; 80048; 80053; 82962; 83690; 84100; 85025; 85027; 85610; 85730; 86803; 87070; 87076; 87081; 87186; 87205; 87340; 93005; 93010; 94760; 97116-GP; 97161-GP; 99285-25; C9803; G0480; J1644; Q5106; U0003; U0005

== ENCOUNTER 2023-01-16 12:07 | Inpatient (IN) | payer OTHER, MEDICARE ==
[2023-01-16 12:14] VITALS: BMI 32.8
[2023-01-16] MEDS ORDERED: ACETAMINOPHEN 1000 MG/100 ML BAG IVPB ONE (13:08)
[2023-01-16] MEDS ORDERED: ACETAMINOPHEN INJECTION 100 ML IVPB ONE (13:46)
[2023-01-16] MEDS ORDERED: VANCOMYCIN 1,000 MG in DEXTROSE 5%-WATER - 250 ML IVPB ONE (13:47)
[2023-01-16] MEDS ORDERED: CEFEPIME HCL 1 GM VIAL (RESTRICTED TO ID) IVPB ONE (13:49)
[2023-01-16] MEDS ORDERED: VANCOMYCIN/WATER FOR INJ (PEG) 1,000 MG/200 ML BAG IVPB ONE (14:17)
[2023-01-16] MEDS ORDERED: CEFEPIME 1 GM/100 ML BAG IVPB ONE (14:17)
[2023-01-16 15:38] LABS: HEMATOCRIT 29.4 % (32.4-45.2); HEMOGLOBIN 9.5 GM/dL (10.7-15.3); MCH 30.3 pg (25.7-33.7); MCHC 32.2 g/dl (32.0-36.0); MEAN PLT VOLUME 8.8 fl (7.5-11.1); PLATELET COUNT 159 10^3/uL (134-434); RBC 3.13 M/mm3 (3.60-5.2); WHITE BLOOD COUNT 11.3 K/mm3 (4.0-10.0)
[2023-01-16 15:46] LABS: INR 1.86 (0.83-1.09); PROTHROMBIN TIME (PATIENT) 21.5 SEC (9.7-13.0); VENOUS BASE EXCESS 3.7 mmol/L (-2-2); VENOUS O2 SATURATION 30.3 % (70-80); VENOUS PCO2 51.2 mmHg (38-52); VENOUS PH 7.378 (7.310-7.410)
[2023-01-16 15:49] LABS: ACTIVATED PTT 38.4 SECONDS (25.2-36.5)
[2023-01-16 16:03] LABS: CHLORIDE 100 mmol/L (98-107); POTASSIUM 4.6 mmol/L (3.5-5.1); SODIUM 139 mmol/L (136-145)
[2023-01-16 16:06] LABS: ALBUMIN 2.6 g/dl (3.4-5.0); ANION GAP 7 MMOL/L (8-16); BLOOD UREA NITROGEN 35.3 mg/dL (7-18); CO2 32 mmol/L (21-32); GLUCOSE,RANDOM 97 mg/dL (74-106)
[2023-01-16 16:09] LABS: CREATININE 6.2 mg/dL (0.55-1.3); SGOT/AST 11 U/L (15-37); SGPT/ALT 11 U/L (13-61)
[2023-01-16 16:11] LABS: BILIRUBIN,TOTAL 0.4 mg/dL (0.2-1); TOT PROT 6.2 g/dl (6.4-8.2)
[2023-01-16 16:12] LABS: ALK PHOS 77 U/L (45-117)
[2023-01-16 16:16] LABS: LACTIC ACID 2.6 mmol/L (0.4-2.0)
[2023-01-16 16:45] LABS: ANISOCYTOSIS 1+; MACROCYTOSIS 0; OVALOCYTE 2+; TARGET CELLS 2+
[2023-01-16] MEDS ORDERED: ACETAMINOPHEN 325 MG TABLET (FP) PO PRN (16:59)
[2023-01-16] MEDS ORDERED: SEVELAMER CARBONATE 800 MG TAB (FP) ONE (18:16)
[2023-01-16] MEDS ORDERED: MEROPENEM 500 MG VIAL (RESTRICTED TO ID) IVPB ONE (18:16)
[2023-01-16] MEDS: MEROPENEM 500 MG in DEXTROSE 5%-WATER 100 ML IVPB SCH (18:17)
[2023-01-16] MEDS: SEVELAMER CARBONATE 800 MG TAB (FP) PO SCH (18:17)
[2023-01-16] MEDS ORDERED: ONDANSETRON 4 MG/2 ML VIAL IVPUSH ONE (19:04)
[2023-01-16] MEDS ORDERED: ONDANSETRON 4 MG/2 ML VIAL ONE (19:07)
[2023-01-16] MEDS ORDERED: INSULIN (LEVEMIR) 100 UNITS/ML UNITS SQ SCH (22:00)
[2023-01-17] MEDS: INSULIN SLIDING SCALE (NOVOLOG) 1 VIAL SQ SCH ×5 (00:03→22:30)
[2023-01-17] MEDS ORDERED: SODIUM CHLORIDE 250 ML IV STA (01:27)
[2023-01-17] MEDS: MEROPENEM 500 MG in DEXTROSE 5%-WATER 100 ML IVPB SCH ×2 (06:07→17:41)
[2023-01-17] MEDS ORDERED: SERTRALINE HCL 25 MG TABLET (FP) PO SCH (10:00)
[2023-01-17] MEDS ORDERED: metoPROLOL SUCCINATE 25 MG TAB.SR.24H (FP) PO SCH (10:00)
[2023-01-17] MEDS: SEVELAMER CARBONATE 800 MG TAB (FP) PO SCH ×3 (10:02→16:32)
[2023-01-17] MEDS ORDERED: BUPIVACAINE HCL/PF 0.5% (5MG/ML) 10 ML VIAL ONE (10:08)
[2023-01-17] MEDS ORDERED: PROPOFOL 20 ML ONE (10:45)
[2023-01-17] MEDS ORDERED: LIDOCAINE HCL/PF 2% SDV 5ML VIAL ONE (10:46)
[2023-01-17] MEDS ORDERED: ONDANSETRON 4 MG/2 ML VIAL ONE (10:46)
[2023-01-17] MEDS ORDERED: MIDAZOLAM HCL 2 MG/2 ML SINGLE DOSE VIAL ONE (10:46)
[2023-01-17] MEDS ORDERED: SUGAMMADEX SODIUM 200 MG/2 ML VIAL ONE (10:46)
[2023-01-17] MEDS ORDERED: ROCURONIUM BROMIDE 50 MG/5 ML SYRINGE ONE (10:46)
[2023-01-17] MEDS ORDERED: DEXAMETHASONE SOD PHOSPHATE 4 MG/1 ML VIAL ONE (10:46)
[2023-01-17] MEDS ORDERED: morphine SULFATE 4 MG/ML VIAL IVPUSH PRN (11:48)
[2023-01-17] MEDS ORDERED: PROMETHAZINE HCL 25 MG/1 ML VIAL IVPB PRN (12:27)
[2023-01-17] MEDS ORDERED: oxyCODONE HCL 5 MG TABLET PO PRN (12:27)
[2023-01-17] MEDS ORDERED: ONDANSETRON 4 MG/2 ML VIAL IVPUSH PRN (12:27)
[2023-01-17] MEDS: morphine SULFATE 4 MG/ML VIAL IVPUSH PRN ×2 (13:45→22:26)
[2023-01-17] MEDS ORDERED: SODIUM CHLORIDE 250 ML IV PRN (18:18)
[2023-01-17] MEDS: INSULIN (LEVEMIR) 100 UNITS/ML UNITS SQ SCH (22:30)
[2023-01-18] MEDS: morphine SULFATE 4 MG/ML VIAL IVPUSH PRN ×2 (05:27→14:25)
[2023-01-18] MEDS: MEROPENEM 500 MG in DEXTROSE 5%-WATER 100 ML IVPB SCH ×2 (05:28→17:08)
[2023-01-18] MEDS: INSULIN SLIDING SCALE (NOVOLOG) 1 VIAL SQ SCH ×4 (08:05→22:19)
[2023-01-18] MEDS ORDERED: EPOETIN ALFA-EPBX 4,000 UNIT/ML VIAL SQ ONE (09:00)
[2023-01-18] MEDS ORDERED: SODIUM CHLORIDE 250 ML IV PRN (10:48)
[2023-01-18] MEDS ORDERED: INSULIN (NOVOLOG) ASPART 100 UNITS/ML 10ML VIAL ONE ×2 (13:01→17:11)
[2023-01-18] MEDS: SEVELAMER CARBONATE 800 MG TAB (FP) PO SCH ×3 (13:02→17:08)
[2023-01-18] MEDS: SERTRALINE HCL 25 MG TABLET (FP) PO SCH (13:08)
[2023-01-18] MEDS: metoPROLOL SUCCINATE 25 MG TAB.SR.24H (FP) PO SCH (13:08)
[2023-01-18] MEDS: ACETAMINOPHEN 325 MG TABLET (FP) PO PRN (13:09)
[2023-01-18] MEDS: INSULIN (LEVEMIR) 100 UNITS/ML UNITS SQ SCH (22:17)
[2023-01-19] MEDS: MEROPENEM 500 MG in DEXTROSE 5%-WATER 100 ML IVPB SCH ×2 (05:26→17:21)
[2023-01-19] MEDS: morphine SULFATE 4 MG/ML VIAL IVPUSH PRN (06:05)
[2023-01-19] MEDS: INSULIN SLIDING SCALE (NOVOLOG) 1 VIAL SQ SCH ×4 (06:30→21:21)
[2023-01-19] MEDS ORDERED: EPOETIN ALFA-EPBX 4,000 UNIT/ML VIAL IVPUSH ONE (09:00)
[2023-01-19 09:43] LABS: HEMATOCRIT 22.1 % (32.4-45.2); HEMOGLOBIN 7.4 GM/dL (10.7-15.3); MCH 31.5 pg (25.7-33.7); MCHC 33.4 g/dl (32.0-36.0); MEAN CELL VOLUME 94.5 fl (80-96); MEAN PLT VOLUME 8.7 fl (7.5-11.1); PLATELET COUNT 164 10^3/uL (134-434); RBC 2.34 M/mm3 (3.60-5.2); RDW 15.8 % (11.6-15.6); WHITE BLOOD COUNT 10.8 K/mm3 (4.0-10.0)
[2023-01-19 10:00] LABS: POTASSIUM 4.5 mmol/L (3.5-5.1)
[2023-01-19 10:02] LABS: BLOOD UREA NITROGEN 35.5 mg/dL (7-18)
[2023-01-19] MEDS: SEVELAMER CARBONATE 800 MG TAB (FP) PO SCH ×3 (12:51→17:21)
[2023-01-19] MEDS: SERTRALINE HCL 25 MG TABLET (FP) PO SCH (13:01)
[2023-01-19] MEDS: metoPROLOL SUCCINATE 25 MG TAB.SR.24H (FP) PO SCH (13:01)
[2023-01-19] MEDS ORDERED: EPOETIN ALFA-EPBX 3,000 UNIT/ML VIAL SQ ONE (17:05)
[2023-01-19] MEDS ORDERED: INSULIN (NOVOLOG) ASPART 100 UNITS/ML 10ML VIAL ONE (21:09)
[2023-01-19] MEDS: INSULIN (LEVEMIR) 100 UNITS/ML UNITS SQ SCH (21:24)
[2023-01-19] MEDS ORDERED: SODIUM CHLORIDE 250 ML IV STA (21:30)
[2023-01-20] MEDS: MEROPENEM 500 MG in DEXTROSE 5%-WATER 100 ML IVPB SCH ×2 (05:46→17:27)
[2023-01-20] MEDS: INSULIN SLIDING SCALE (NOVOLOG) 1 VIAL SQ SCH ×4 (06:05→22:04)
[2023-01-20] MEDS: SEVELAMER CARBONATE 800 MG TAB (FP) PO SCH ×2 (08:42→12:17)
[2023-01-20] MEDS: SERTRALINE HCL 25 MG TABLET (FP) PO SCH (09:09)
[2023-01-20] MEDS: metoPROLOL SUCCINATE 25 MG TAB.SR.24H (FP) PO SCH (09:09)
[2023-01-20 09:48] LABS: HEMATOCRIT 21.6 % (32.4-45.2); HEMOGLOBIN 7.1 GM/dL (10.7-15.3); MCH 31.2 pg (25.7-33.7); MEAN CELL VOLUME 94.7 fl (80-96); MEAN PLT VOLUME 8.9 fl (7.5-11.1); PLATELET COUNT 162 10^3/uL (134-434); RBC 2.29 M/mm3 (3.60-5.2); RDW 15.7 % (11.6-15.6); WHITE BLOOD COUNT 9.1 K/mm3 (4.0-10.0)
[2023-01-20 10:08] LABS: POTASSIUM 4.3 mmol/L (3.5-5.1)
[2023-01-20 10:14] LABS: ALBUMIN 2.6 g/dl (3.4-5.0); CALCIUM 8.7 mg/dL (8.5-10.1)
[2023-01-20 10:15] LABS: BLOOD UREA NITROGEN 33.4 mg/dL (7-18)
[2023-01-20 10:18] LABS: CREATININE 5.3 mg/dL (0.55-1.3); TOT PROT 5.7 g/dl (6.4-8.2)
[2023-01-20 10:19] LABS: BILIRUBIN,TOTAL 0.2 mg/dL (0.2-1)
[2023-01-20] MEDS ORDERED: MAGNESIUM HYDROX 2400MG/30ML ORAL SUSPENSION 30 ML CUP PO ONE (10:30)
[2023-01-20] MEDS: POLYETHYLENE GLYCOL (HEALTHYLAX) 3350 17 GM PACKET PO SCH (10:58)
[2023-01-20] MEDS: SEVELAMER CARBONATE 0.8 GM POWDER PACKET PO SCH (17:28)
[2023-01-20] MEDS: ACETAMINOPHEN 325 MG TABLET (FP) PO PRN (17:29)
[2023-01-20] MEDS: INSULIN (LEVEMIR) 100 UNITS/ML UNITS SQ SCH (22:04)
[2023-01-21] MEDS: MEROPENEM 500 MG in DEXTROSE 5%-WATER 100 ML IVPB SCH ×2 (05:37→17:37)
[2023-01-21] MEDS: ACETAMINOPHEN 325 MG TABLET (FP) PO PRN (05:38)
[2023-01-21] MEDS: INSULIN SLIDING SCALE (NOVOLOG) 1 VIAL SQ SCH ×4 (07:11→21:55)
[2023-01-21] MEDS: SEVELAMER CARBONATE 0.8 GM POWDER PACKET PO SCH ×3 (07:57→16:50)
[2023-01-21] MEDS: POLYETHYLENE GLYCOL (HEALTHYLAX) 3350 17 GM PACKET PO SCH (09:10)
[2023-01-21] MEDS: metoPROLOL SUCCINATE 25 MG TAB.SR.24H (FP) PO SCH (09:10)
[2023-01-21] MEDS: SERTRALINE HCL 25 MG TABLET (FP) PO SCH (09:10)
[2023-01-21 10:38] LABS: BASO % 0.4 % (0-2.0); EOS % 1.1 % (0-4.5); HEMATOCRIT 24.1 % (32.4-45.2); HEMOGLOBIN 7.9 GM/dL (10.7-15.3); LYMPH % 16.5 % (8-40); MCH 31.7 pg (25.7-33.7); MCHC 32.7 g/dl (32.0-36.0); MEAN CELL VOLUME 96.9 fl (80-96); MEAN PLT VOLUME 9.5 fl (7.5-11.1); MONO % 10.7 % (3.8-10.2); NEUT % 71.3 % (42.8-82.8); PLATELET COUNT 177 10^3/uL (134-434); RBC 2.49 M/mm3 (3.60-5.2); RDW 15.7 % (11.6-15.6); WHITE BLOOD COUNT 11.6 K/mm3 (4.0-10.0)
[2023-01-21 10:42] LABS: POTASSIUM 5.2 mmol/L (3.5-5.1)
[2023-01-21 10:45] LABS: ALBUMIN 2.7 g/dl (3.4-5.0); BLOOD UREA NITROGEN 45.8 mg/dL (7-18)
[2023-01-21 10:48] LABS: CREATININE 6.7 mg/dL (0.55-1.3)
[2023-01-21 10:49] LABS: BILIRUBIN,TOTAL 0.3 mg/dL (0.2-1)
[2023-01-21] MEDS ORDERED: INSULIN (NOVOLOG) ASPART 100 UNITS/ML 10ML VIAL ONE ×2 (17:01→21:19)
[2023-01-21] MEDS: INSULIN (LEVEMIR) 100 UNITS/ML UNITS SQ SCH (21:55)
[2023-01-22] MEDS ORDERED: EPOETIN ALFA-EPBX 10,000 UNIT/ML VIAL IVPUSH ONE (06:00)
[2023-01-22] MEDS: MEROPENEM 500 MG in DEXTROSE 5%-WATER 100 ML IVPB SCH ×2 (06:35→17:01)
[2023-01-22] MEDS: INSULIN SLIDING SCALE (NOVOLOG) 1 VIAL SQ SCH ×4 (06:40→23:15)
[2023-01-22] MEDS: SEVELAMER CARBONATE 0.8 GM POWDER PACKET PO SCH ×3 (10:28→16:40)
[2023-01-22] MEDS: POLYETHYLENE GLYCOL (HEALTHYLAX) 3350 17 GM PACKET PO SCH (10:28)
[2023-01-22] MEDS: SERTRALINE HCL 25 MG TABLET (FP) PO SCH (10:29)
[2023-01-22] MEDS: metoPROLOL SUCCINATE 25 MG TAB.SR.24H (FP) PO SCH (15:11)
[2023-01-22] MEDS: ACETAMINOPHEN 325 MG TABLET (FP) PO PRN ×2 (15:24→23:17)
[2023-01-22] MEDS ORDERED: INSULIN (NOVOLOG) ASPART 100 UNITS/ML 10ML VIAL ONE (21:40)
[2023-01-22] MEDS: INSULIN (LEVEMIR) 100 UNITS/ML UNITS SQ SCH (23:15)
[2023-01-23] MEDS ORDERED: LIDOCAINE HCL 1%, 10 MG/ML (20ML VIAL) ONE (06:40)
[2023-01-23] MEDS: INSULIN SLIDING SCALE (NOVOLOG) 1 VIAL SQ SCH ×4 (06:58→22:08)
[2023-01-23] MEDS: MEROPENEM 500 MG in DEXTROSE 5%-WATER 100 ML IVPB SCH ×2 (06:58→17:11)
[2023-01-23] MEDS ORDERED: POVIDONE-IODINE OINTMENT 10% - 28.4 GM TUBE ONE (07:06)
[2023-01-23] MEDS ORDERED: HEPARIN NA (PORCINE) 5,000 UNITS/ML 1ML VIAL ONE ×2 (07:06→08:19)
[2023-01-23] MEDS ORDERED: PAPAVERINE HCL 30 MG/1 ML 10 ML VIAL NR ONE (07:06)
[2023-01-23] MEDS ORDERED: PROPOFOL 20 ML ONE (07:32)
[2023-01-23] MEDS ORDERED: MIDAZOLAM HCL 2 MG/2 ML SINGLE DOSE VIAL ONE (07:32)
[2023-01-23] MEDS ORDERED: ceFAZolin SODIUM 1 GM VIAL IVPB ONE (08:02)
[2023-01-23] MEDS ORDERED: LIDOCAINE HCL 1%, 10 MG/ML (20ML VIAL) INF ONE (08:12)
[2023-01-23] MEDS ORDERED: ceFAZolin SODIUM 1 GM VIAL ONE (08:48)
[2023-01-23] MEDS ORDERED: ONDANSETRON 4 MG/2 ML VIAL ONE (08:48)
[2023-01-23] MEDS ORDERED: SODIUM CHLORIDE 50 ML IV STA (09:07)
[2023-01-23] MEDS ORDERED: ONDANSETRON 4 MG/2 ML VIAL IVPUSH PRN (09:12)
[2023-01-23] MEDS ORDERED: APIXABAN 5 MG TABLET PO SCH (10:00)
[2023-01-23] MEDS: SEVELAMER CARBONATE 0.8 GM POWDER PACKET PO SCH ×3 (10:02→17:06)
[2023-01-23] MEDS: POLYETHYLENE GLYCOL (HEALTHYLAX) 3350 17 GM PACKET PO SCH (10:30)
[2023-01-23] MEDS: SERTRALINE HCL 25 MG TABLET (FP) PO SCH (10:31)
[2023-01-23] MEDS: metoPROLOL SUCCINATE 25 MG TAB.SR.24H (FP) PO SCH (11:20)
[2023-01-23] MEDS: ACETAMINOPHEN 325 MG TABLET (FP) PO PRN ×2 (11:24→22:00)
[2023-01-23] MEDS ORDERED: EPOETIN ALFA-EPBX 10,000 UNIT/ML VIAL IVPUSH ONE (12:00)
[2023-01-23 13:30] LABS: HEMATOCRIT 23.7 % (32.4-45.2); HEMOGLOBIN 7.9 GM/dL (10.7-15.3); MCHC 33.3 g/dl (32.0-36.0); MEAN CELL VOLUME 93.3 fl (80-96); PLATELET COUNT 195 10^3/uL (134-434); RBC 2.54 M/mm3 (3.60-5.2); RDW 15.8 % (11.6-15.6); WHITE BLOOD COUNT 10.1 K/mm3 (4.0-10.0)
[2023-01-23 13:39] LABS: CHLORIDE 98 mmol/L (98-107); POTASSIUM 5.3 mmol/L (3.5-5.1); SODIUM 135 mmol/L (136-145)
[2023-01-23 13:42] LABS: ALBUMIN 2.6 g/dl (3.4-5.0)
[2023-01-23 13:43] LABS: GLUCOSE,RANDOM 202 mg/dL (74-106)
[2023-01-23 13:44] LABS: CALCIUM 8.9 mg/dL (8.5-10.1)
[2023-01-23 13:45] LABS: ANION GAP 12 MMOL/L (8-16); CO2 25 mmol/L (21-32)
[2023-01-23 13:46] LABS: SGOT/AST 22 U/L (15-37); SGPT/ALT 14 U/L (13-61)
[2023-01-23 13:47] LABS: BILIRUBIN,TOTAL 0.5 mg/dL (0.2-1); TOT PROT 5.8 g/dl (6.4-8.2)
[2023-01-23 13:49] LABS: ALK PHOS 72 U/L (45-117)
[2023-01-23 14:12] LABS: CREATININE 9.3 mg/dL (0.55-1.3)
[2023-01-23] MEDS ORDERED: INSULIN (NOVOLOG) ASPART 100 UNITS/ML 10ML VIAL ONE ×2 (21:07→21:08)
[2023-01-23] MEDS: APIXABAN 5 MG TABLET PO SCH (21:59)
[2023-01-23] MEDS: INSULIN (LEVEMIR) 100 UNITS/ML UNITS SQ SCH (22:01)
[2023-01-24] MEDS: MEROPENEM 500 MG in DEXTROSE 5%-WATER 100 ML IVPB SCH ×2 (06:44→16:59)
[2023-01-24] MEDS: INSULIN SLIDING SCALE (NOVOLOG) 1 VIAL SQ SCH ×4 (06:50→21:58)
[2023-01-24] MEDS: SEVELAMER CARBONATE 0.8 GM POWDER PACKET PO SCH ×3 (08:44→16:58)
[2023-01-24] MEDS: SERTRALINE HCL 25 MG TABLET (FP) PO SCH (09:30)
[2023-01-24] MEDS: APIXABAN 5 MG TABLET PO SCH (09:30)
[2023-01-24] MEDS: metoPROLOL SUCCINATE 25 MG TAB.SR.24H (FP) PO SCH (09:30)
[2023-01-24] MEDS: POLYETHYLENE GLYCOL (HEALTHYLAX) 3350 17 GM PACKET PO SCH (09:31)
[2023-01-24] MEDS: ACETAMINOPHEN 325 MG TABLET (FP) PO PRN ×2 (09:32→18:25)
[2023-01-24] MEDS: INSULIN (LEVEMIR) 100 UNITS/ML UNITS SQ SCH (21:59)
[2023-01-25] MEDS: MEROPENEM 500 MG in DEXTROSE 5%-WATER 100 ML IVPB SCH (05:49)
[2023-01-25] MEDS: INSULIN SLIDING SCALE (NOVOLOG) 1 VIAL SQ SCH ×2 (06:04→12:49)
[2023-01-25] MEDS: SEVELAMER CARBONATE 0.8 GM POWDER PACKET PO SCH ×2 (09:06→12:50)
[2023-01-25] MEDS: POLYETHYLENE GLYCOL (HEALTHYLAX) 3350 17 GM PACKET PO SCH (09:07)
[2023-01-25 09:59] LABS: HEMATOCRIT 21.6 % (32.4-45.2); HEMOGLOBIN 7.1 GM/dL (10.7-15.3); MCH 30.7 pg (25.7-33.7); MEAN PLT VOLUME 9.1 fl (7.5-11.1); PLATELET COUNT 178 10^3/uL (134-434); RBC 2.33 M/mm3 (3.60-5.2); RDW 15.8 % (11.6-15.6); WHITE BLOOD COUNT 7.9 K/mm3 (4.0-10.0)
[2023-01-25 10:20] LABS: CHLORIDE 96 mmol/L (98-107); POTASSIUM 5.8 mmol/L (3.5-5.1)
[2023-01-25 10:22] LABS: ALBUMIN 2.5 g/dl (3.4-5.0); CALCIUM 8.3 mg/dL (8.5-10.1); CO2 28 mmol/L (21-32); GLUCOSE,RANDOM 117 mg/dL (74-106)
[2023-01-25 10:23] LABS: BLOOD UREA NITROGEN 61.5 mg/dL (7-18)
[2023-01-25 10:25] LABS: SGPT/ALT 8 U/L (13-61)
[2023-01-25 10:26] LABS: SGOT/AST 12 U/L (15-37)
[2023-01-25 10:27] LABS: BILIRUBIN,TOTAL 0.3 mg/dL (0.2-1); TOT PROT 5.6 g/dl (6.4-8.2)
[2023-01-25 10:28] LABS: ALK PHOS 70 U/L (45-117)
[2023-01-25 10:30] LABS: ANION GAP 11 MMOL/L (8-16); CREATININE 9.4 mg/dL (0.55-1.3); SODIUM 134 mmol/L (136-145)
[2023-01-25 10:55] VITALS: RESP 18
[2023-01-25] MEDS ORDERED: SODIUM CHLORIDE 250 ML IV PRN ×2 (11:30→16:19)
[2023-01-25] MEDS ORDERED: EPOETIN ALFA-EPBX 10,000 UNIT/ML VIAL SQ ONE (11:30)
[2023-01-25] MEDS: metoPROLOL SUCCINATE 25 MG TAB.SR.24H (FP) PO SCH (12:50)
[2023-01-25] MEDS: SERTRALINE HCL 25 MG TABLET (FP) PO SCH (12:50)
[2023-01-25 14:47] VITALS: BP 117/55; PULSE 78; TEMP 98.5
[2023-01-26] MEDS ORDERED: HEPARIN NA (PORCINE) 5,000 UNITS/ML 1ML VIAL IVPUSH ONE (16:19)
[2023-01-26] MEDS ORDERED: EPOETIN ALFA-EPBX 10,000 UNIT/ML VIAL IVPUSH ONE (16:19)
== END 2023-01-25 16:00 | DRG 579 ==
LOC: JER 12:07 → JERBED 16:53 → J7W 21:35
PROVIDERS: ADMIT Family Medicine; ATTEND Family Medicine
PROC: 5A1D70Z Performance of Urinary Filtration, Intermittent, Less than 6 Hours Per Day (ICD-10-PCS; 2023-01-18)
PROC: 5A1D70Z Performance of Urinary Filtration, Intermittent, Less than 6 Hours Per Day (ICD-10-PCS; 2023-01-19)
PROC: 03753ZZ Dilation of Right Axillary Artery, Percutaneous Approach (ICD-10-PCS; 2023-01-23)
PROC: 03C53ZZ Extirpation of Matter from Right Axillary Artery, Percutaneous Approach (ICD-10-PCS; 2023-01-23)
PROC: 0J990ZZ Drainage of Buttock Subcutaneous Tissue and Fascia, Open Approach (ICD-10-PCS; 2023-01-23)
PROC: 5A1D70Z Performance of Urinary Filtration, Intermittent, Less than 6 Hours Per Day (ICD-10-PCS; 2023-01-23)
PROC: B50WYZZ Plain Radiography of Dialysis Shunt/Fistula using Other Contrast (ICD-10-PCS; principal; 2023-01-23 08:00)
PROC: 0KBN0ZZ Excision of Right Hip Muscle, Open Approach (ICD-10-PCS; 2023-01-23 08:00)
PROC: 5A1D70Z Performance of Urinary Filtration, Intermittent, Less than 6 Hours Per Day (ICD-10-PCS; 2023-01-25)
DX: L02.31 Cutaneous abscess of buttock (principal); N18.6 End stage renal disease; I12.0 Hypertensive chronic kidney disease with stage 5 chronic kidney disease or end stage renal disease; T82.868A Thrombosis due to vascular prosthetic devices, implants and grafts, initial encounter; E11.52 Type 2 diabetes mellitus with diabetic peripheral angiopathy with gangrene; I96 Gangrene, not elsewhere classified; I48.91 Unspecified atrial fibrillation; I25.10 Atherosclerotic heart disease of native coronary artery without angina pectoris; J44.9 Chronic obstructive pulmonary disease, unspecified; E78.5 Hyperlipidemia, unspecified; E11.22 Type 2 diabetes mellitus with diabetic chronic kidney disease; I27.20 Pulmonary hypertension, unspecified; E11.51 Type 2 diabetes mellitus with diabetic peripheral angiopathy without gangrene; E66.9 Obesity, unspecified; Z68.32 Body mass index [BMI] 32.0-32.9, adult; I95.9 Hypotension, unspecified; D64.9 Anemia, unspecified; Z99.2 Dependence on renal dialysis; Z88.0 Allergy status to penicillin; Y83.8 Other surgical procedures as the cause of abnormal reaction of the patient, or of later complication, without mention of misadventure at the time of the procedure
CPT/HCPCS: 0241U-QW; 36415; 71045-TC-FY; 72192-TC; 76000-TC-FY; 80048; 80053; 82553; 82607; 82728; 82746; 82803; 82962; 83540; 83550; 83605; 84484; 85025; 85027; 85610; 85651; 85730; 86140; 86803; 86850; 86900; 86901; 87040; 87070; 87186; 87205; 87340; 93005; 93010; 94760; 97116-GP; 97162-GP; 99285-25; C1757; J1644; Q5106

== ENCOUNTER 2023-03-26 00:01 | Inpatient (IN) | payer OTHER, MEDICARE ==
[2023-03-26] MEDS ORDERED: ACETAMINOPHEN 1000 MG/100 ML BAG IVPB ONE (02:56)
[2023-03-26 03:23] LABS: BASO % 0.4 % (0-2.0); EOS % 0.1 % (0-4.5); HEMATOCRIT 31.4 % (32.4-45.2); HEMOGLOBIN 10.5 GM/dL (10.7-15.3); LYMPH % 16.4 % (8-40); MCH 29.1 pg (25.7-33.7); MCHC 33.4 g/dl (32.0-36.0); MEAN CELL VOLUME 87.2 fl (80-96); MEAN PLT VOLUME 9.1 fl (7.5-11.1); MONO % 12.5 % (3.8-10.2); NEUT % 70.6 % (42.8-82.8); PLATELET COUNT 176 10^3/uL (134-434); RDW 16.6 % (11.6-15.6); WHITE BLOOD COUNT 8.6 K/mm3 (4.0-10.0)
[2023-03-26 03:29] LABS: INR 1.51 (0.83-1.09); PROTHROMBIN TIME (PATIENT) 17.5 SEC (9.7-13.0)
[2023-03-26 03:31] LABS: ACTIVATED PTT 40.3 SECONDS (25.2-36.5)
[2023-03-26] MEDS ORDERED: ACETAMINOPHEN INJECTION 100 ML IVPB ONE (03:36)
[2023-03-26 03:41] LABS: CHLORIDE 102 mmol/L (98-107); POTASSIUM 4.7 mmol/L (3.5-5.1); SODIUM 137 mmol/L (136-145)
[2023-03-26 03:43] LABS: CALCIUM 9.5 mg/dL (8.5-10.1)
[2023-03-26 03:44] LABS: ANION GAP 8 mmol/L (4-13); BLOOD UREA NITROGEN 59.4 mg/dL (7-18); CO2 28 mmol/L (21-32)
[2023-03-26 03:47] LABS: PHOSPHOROUS 4.4 mg/dL (2.5-4.9); SGOT/AST 23 U/L (15-37); SGPT/ALT 10 U/L (13-61)
[2023-03-26 03:48] LABS: TOT PROT 6.6 g/dl (6.4-8.2)
[2023-03-26 03:49] LABS: BILIRUBIN,TOTAL 0.3 mg/dL (0.2-1)
[2023-03-26 03:50] LABS: ALK PHOS 64 U/L (45-117)
[2023-03-26 03:52] LABS: N-TERMINAL BNP 12256.2 pg/ml (5-450)
[2023-03-26 04:02] LABS: CREATININE 7.5 mg/dL (0.55-1.3); GLUCOSE,RANDOM 31 mg/dL (74-106); MAGNESIUM 2.1 mg/dL (1.8-2.4)
[2023-03-26] MEDS ORDERED: ERTAPENEM SODIUM 1 GM in SODIUM CHLORIDE 50 ML IVPB ONE (04:48)
[2023-03-26] MEDS ORDERED: DEXTROSE 50%-WATER - 25 GM/50 ML VIAL IVPUSH ONE ×2 (04:49→06:47)
[2023-03-26] MEDS ORDERED: DEXTROSE 50%-WATER 25 GM/50 ML DISP.SYRIN ONE ×2 (04:50→06:39)
[2023-03-26] MEDS ORDERED: ERTAPENEM SODIUM 1 GM VIAL ONE (05:01)
[2023-03-26 05:55] LABS: CHLORIDE 103 mmol/L (98-107); POTASSIUM 4.2 mmol/L (3.5-5.1); SODIUM 138 mmol/L (136-145)
[2023-03-26 05:57] LABS: CALCIUM 9.3 mg/dL (8.5-10.1)
[2023-03-26 05:58] LABS: ALBUMIN 2.7 g/dl (3.4-5.0); ANION GAP 8 mmol/L (4-13); BLOOD UREA NITROGEN 64.4 mg/dL (7-18); CO2 27 mmol/L (21-32)
[2023-03-26] MEDS ORDERED: SEVELAMER CARBONATE 800 MG TAB (FP) PO SCH (06:00)
[2023-03-26] MEDS ORDERED: HEPARIN NA (PORCINE) 5,000 UNITS/ML 1ML VIAL SQ SCH (06:00)
[2023-03-26] MEDS: INSULIN SLIDING SCALE (NOVOLOG) 1 VIAL SQ SCH ×4 (06:00→22:00)
[2023-03-26 06:01] LABS: SGOT/AST 12 U/L (15-37); SGPT/ALT 9 U/L (13-61)
[2023-03-26 06:02] LABS: TOT PROT 5.9 g/dl (6.4-8.2)
[2023-03-26 06:03] LABS: BILIRUBIN,TOTAL 0.2 mg/dL (0.2-1)
[2023-03-26 06:04] LABS: ALK PHOS 57 U/L (45-117)
[2023-03-26] MEDS ORDERED: DEXTROSE 10%-WATER 500 ML INFUS.BAG IV ONE ×2 (06:15→06:30)
[2023-03-26] MEDS ORDERED: DEXTROSE 50%-WATER 25 GM/50 ML DISP.SYRIN IVPUSH ONE (06:47)
[2023-03-26 07:10] LABS: CREATININE 7.6 mg/dL (0.55-1.3); GLUCOSE,RANDOM 27 mg/dL (74-106)
[2023-03-26] MEDS ORDERED: SEVELAMER CARBONATE 0.8 GM POWDER PACKET PO SCH (08:00)
[2023-03-26] MEDS ORDERED: APIXABAN 5 MG TABLET ONE (09:20)
[2023-03-26] MEDS ORDERED: metoPROLOL SUCCINATE 25 MG TAB.SR.24H (FP) PO ONE (09:21)
[2023-03-26] MEDS: metoPROLOL SUCCINATE 25 MG TAB.SR.24H (FP) PO SCH (09:23)
[2023-03-26] MEDS: APIXABAN 5 MG TABLET PO SCH ×2 (09:23→22:00)
[2023-03-26 10:47] LABS: BASO % 0.2 % (0-2.0); EOS % 0.3 % (0-4.5); HEMATOCRIT 29.6 % (32.4-45.2); HEMOGLOBIN 9.8 GM/dL (10.7-15.3); MCH 29.2 pg (25.7-33.7); MCHC 33.1 g/dl (32.0-36.0); MEAN CELL VOLUME 88.2 fl (80-96); MEAN PLT VOLUME 9.1 fl (7.5-11.1); MONO % 13.7 % (3.8-10.2); NEUT % 66.8 % (42.8-82.8); PLATELET COUNT 174 10^3/uL (134-434); RBC 3.35 M/mm3 (3.60-5.2); RDW 16.6 % (11.6-15.6); WHITE BLOOD COUNT 7.8 K/mm3 (4.0-10.0)
[2023-03-26 11:06] LABS: CHLORIDE 100 mmol/L (98-107); POTASSIUM 4.6 mmol/L (3.5-5.1); SODIUM 137 mmol/L (136-145)
[2023-03-26 11:08] LABS: CALCIUM 9.6 mg/dL (8.5-10.1)
[2023-03-26 11:09] LABS: ALBUMIN 2.8 g/dl (3.4-5.0); ANION GAP 9 mmol/L (4-13); BLOOD UREA NITROGEN 63.4 mg/dL (7-18); CO2 28 mmol/L (21-32); GLUCOSE,RANDOM 91 mg/dL (74-106)
[2023-03-26 11:11] LABS: SGPT/ALT 9 U/L (13-61)
[2023-03-26 11:12] LABS: IRON SERUM 24 ug/dL (50-175); SGOT/AST 10 U/L (15-37); TOTAL IRON BINDING CAPACITY 132 ug/dL (250-450)
[2023-03-26 11:13] LABS: BILIRUBIN,TOTAL 0.3 mg/dL (0.2-1); TOT PROT 6.3 g/dl (6.4-8.2)
[2023-03-26 11:14] LABS: ALK PHOS 63 U/L (45-117)
[2023-03-26 11:20] LABS: CREATININE 7.6 mg/dL (0.55-1.3)
[2023-03-26] MEDS: LACTOBACILLUS ACIDOPHILUS 1 TABLET PO SCH (11:21)
[2023-03-26 17:27] VITALS: BMI 41.0
[2023-03-26] MEDS: ATORVASTATIN CA 40 MG TABLET (FP) PO SCH (22:00)
[2023-03-26] MEDS: POLYETHYLENE GLYCOL (HEALTHYLAX) 3350 17 GM PACKET PO SCH (22:00)
[2023-03-26 23:34] VITALS: RESP 18
[2023-03-27] MEDS ORDERED: DEXTROSE 50%-WATER - 25 GM/50 ML VIAL IVPUSH ONE (06:16)
[2023-03-27] MEDS: INSULIN SLIDING SCALE (NOVOLOG) 1 VIAL SQ SCH ×4 (07:15→21:54)
[2023-03-27] MEDS ORDERED: SODIUM CHLORIDE 250 ML IV PRN (08:57)
[2023-03-27 09:00] LABS: HEMATOCRIT 27.5 % (32.4-45.2); MCH 28.6 pg (25.7-33.7); MCHC 32.6 g/dl (32.0-36.0); MEAN CELL VOLUME 87.6 fl (80-96); MEAN PLT VOLUME 9.2 fl (7.5-11.1); PLATELET COUNT 181 10^3/uL (134-434); RBC 3.14 M/mm3 (3.60-5.2); RDW 16.7 % (11.6-15.6); WHITE BLOOD COUNT 6.5 K/mm3 (4.0-10.0)
[2023-03-27 09:03] LABS: CHLORIDE 99 mmol/L (98-107); POTASSIUM 5.1 mmol/L (3.5-5.1); SODIUM 134 mmol/L (136-145)
[2023-03-27 09:05] LABS: ANION GAP 9 mmol/L (4-13); BLOOD UREA NITROGEN 69.7 mg/dL (7-18); CALCIUM 9.1 mg/dL (8.5-10.1); CO2 26 mmol/L (21-32); GLUCOSE,RANDOM 118 mg/dL (74-106); MAGNESIUM 2.3 mg/dL (1.8-2.4)
[2023-03-27 09:08] LABS: PHOSPHOROUS 5.5 mg/dL (2.5-4.9)
[2023-03-27 09:09] LABS: CREATININE 8.4 mg/dL (0.55-1.3)
[2023-03-27] MEDS: APIXABAN 5 MG TABLET PO SCH ×2 (13:44→21:47)
[2023-03-27] MEDS: LACTOBACILLUS ACIDOPHILUS 1 TABLET PO SCH (13:44)
[2023-03-27] MEDS: metoPROLOL SUCCINATE 25 MG TAB.SR.24H (FP) PO SCH (13:44)
[2023-03-27] MEDS: POLYETHYLENE GLYCOL (HEALTHYLAX) 3350 17 GM PACKET PO SCH ×2 (13:45→21:47)
[2023-03-27] MEDS ORDERED: ACETAMINOPHEN 325 MG TABLET (FP) PO ONE (18:15)
[2023-03-27] MEDS ORDERED: oxyCODONE HCL 5 MG TABLET PO ONE (18:15)
[2023-03-27] MEDS ORDERED: ACETAMINOPHEN 325 MG TABLET (FP) PO PRN (18:27)
[2023-03-27] MEDS ORDERED: oxyCODONE HCL 5 MG TABLET PO PRN (18:27)
[2023-03-27] MEDS: ATORVASTATIN CA 40 MG TABLET (FP) PO SCH (21:47)
[2023-03-28] MEDS: INSULIN SLIDING SCALE (NOVOLOG) 1 VIAL SQ SCH ×4 (06:37→22:13)
[2023-03-28] MEDS ORDERED: INSULIN (NOVOLOG) ASPART 100 UNITS/ML 10ML VIAL ONE (10:33)
[2023-03-28] MEDS: APIXABAN 5 MG TABLET PO SCH ×2 (10:35→22:13)
[2023-03-28] MEDS: metoPROLOL SUCCINATE 25 MG TAB.SR.24H (FP) PO SCH (10:35)
[2023-03-28] MEDS: LACTOBACILLUS ACIDOPHILUS 1 TABLET PO SCH (10:35)
[2023-03-28] MEDS: POLYETHYLENE GLYCOL (HEALTHYLAX) 3350 17 GM PACKET PO SCH ×2 (10:35→22:13)
[2023-03-28 10:54] LABS: BF WBC & OTHER NUCLEATED CELLS 25744 /mm3
[2023-03-28 10:58] LABS: BODY FLUID MONOCYTE 6 %
[2023-03-28] MEDS: ATORVASTATIN CA 40 MG TABLET (FP) PO SCH (22:13)
[2023-03-29] MEDS: INSULIN SLIDING SCALE (NOVOLOG) 1 VIAL SQ SCH (06:52)
[2023-03-29] MEDS ORDERED: SODIUM CHLORIDE 250 ML IV PRN (09:38)
[2023-03-29] MEDS ORDERED: EPOETIN ALFA-EPBX 4,000 UNIT/ML VIAL SQ ONE ×2 (10:00→10:45)
[2023-03-29] MEDS: LACTOBACILLUS ACIDOPHILUS 1 TABLET PO SCH (10:06)
[2023-03-29] MEDS: APIXABAN 5 MG TABLET PO SCH (10:06)
[2023-03-29] MEDS: POLYETHYLENE GLYCOL (HEALTHYLAX) 3350 17 GM PACKET PO SCH (10:07)
[2023-03-29] MEDS: metoPROLOL SUCCINATE 25 MG TAB.SR.24H (FP) PO SCH (10:07)
[2023-03-29 14:04] VITALS: BP 124/47; PULSE 67; TEMP 98.5
== END 2023-03-29 21:37 | DRG 564 ==
LOC: JER 00:01 → JERBED 05:11 → OBSVTOIN 05:41 → J6S 15:02
PROVIDERS: ADMIT Internal Medicine; ATTEND Family Medicine
PROC: 0S9D3ZZ Drainage of Left Knee Joint, Percutaneous Approach (ICD-10-PCS; principal; 2023-03-26)
PROC: 5A1D70Z Performance of Urinary Filtration, Intermittent, Less than 6 Hours Per Day (ICD-10-PCS; 2023-03-27)
PROC: 5A1D70Z Performance of Urinary Filtration, Intermittent, Less than 6 Hours Per Day (ICD-10-PCS; 2023-03-29)
DX: M25.461 Effusion, right knee (principal); N18.6 End stage renal disease; I48.20 Chronic atrial fibrillation, unspecified; Z68.41 Body mass index [BMI] 40.0-44.9, adult; I13.2 Hypertensive heart and chronic kidney disease with heart failure and with stage 5 chronic kidney disease, or end stage renal disease; K52.9 Noninfective gastroenteritis and colitis, unspecified; E66.01 Morbid (severe) obesity due to excess calories; I25.10 Atherosclerotic heart disease of native coronary artery without angina pectoris; E11.51 Type 2 diabetes mellitus with diabetic peripheral angiopathy without gangrene; J44.9 Chronic obstructive pulmonary disease, unspecified; I27.20 Pulmonary hypertension, unspecified; E78.5 Hyperlipidemia, unspecified; E11.22 Type 2 diabetes mellitus with diabetic chronic kidney disease; I50.9 Heart failure, unspecified; Z99.2 Dependence on renal dialysis; D63.1 Anemia in chronic kidney disease; K57.90 Diverticulosis of intestine, part unspecified, without perforation or abscess without bleeding
CPT/HCPCS: 0241U-QW; 36415; 71045-TC-FY; 72170-TC-FY; 73562-TC-RT-FY; 74176-TC; 80048; 80053; 82728; 82962; 83540; 83550; 83735; 83880; 84100; 84484; 84550; 85025; 85027; 85610; 85730; 86140; 87040; 87070; 87075; 87205; 87340; 87517; 87635; 89060; 93005; 93010; 93970-TC; 97162-GP; 99285-25; G0378; Q5106